=== PATIENT | male | born 1945 | race Caucasian/White ===

== ENCOUNTER 2019-09-10 02:17 | Day surgery (SDC) | payer MEDICARE, SELFPAY ==
[2019-09-09 12:37] VITALS: BMI 28.0
--- NOTE | 2019-09-09 22:58 | HP_ITS ---
DATE OF SERVICE: 09/10/2019 PREOPERATIVE DIAGNOSES: 1. Type 2 diabetes with severe peripheral vascular disease. 2. Gangrenous left 2nd toe. 3. Osteomyelitis of the left 2nd toe and distal metatarsal. 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 SURGEON: Jose Cartagena M.D. ANESTHESIA: General. INDICATIONS: This patient is 73, he has been a patient of mine for about 4 years. During that time, he has undergone lot of surgeries and wound care for diabetic foot problems. In 2016, he underwent transmetatarsal amputations of the right 2nd and 3rd toes and later in that year underwent transmetatarsal amputation of the 4th and 5th toes. Earlier in that year, he had already undergone big toe transmetatarsal amputation. He went on to heal all of those sites well. More recently, he has had a great toe amputation on the left side and had complications with healing of that. He has been involved with hyperbaric treatment. He has had evaluation by vascular surgeons and he has had an extensive workup with Dr. Dilan Sow at [facility]. An attempt had been made to revascularize the left lower extremity and there was no successful attempt at intervention at the anterior tibial both antegrade and retrograde, and the posterior tibial. It was felt that there was no way that they could revascularize the distal vessels. However, now the patient has osteomyelitis and a gangrenous toe. It is felt that the flow through the distal posterior tibial is actually retrograde flow from the dorsal arteries which seemed to preclude a toe amputation and an MRI indicates osteomyelitis into the distal metatarsal. There had been success in healing the great toe amputation site with hyperbaric treatment over long period of time. The patient has now agreed to transmetatarsal amputation. We came upon this idea because the 3rd toe is very poorly perfused. It is almost white and removal of the 2nd toe can be very problematic for survival of the next adjacent toe. He needs surgical intervention and he has agreed to transmetatarsal amputation of all remaining toes.Healing of this wound will remain problematic. We will do all we can to preserve the dorsal skin and the tibialis anterior and get him quickly started back to the wound center, where he has been followed at [place], receiving hyperbaric treatment, frequent wound debridements, careful radiographic monitoring. ALLERGIES: THE PATIENT IS NOT KNOWN TO BE ALLERGIC TO ANY MEDICATIONS. PAST MEDICAL HISTORY: According to the patient's latest intake in my office, he was on clopidogrel and aspirin in late 2019. We have asked him to remain on the Plavix for his surgery. This patient is not any longer on any chronic narcotic medications. Our other latest medication information is from mid 2018, the patient had failed to bring a list and said he would drop it off. He has had cardiac bypass in 2004. He is a nonsmoker, type 2 diabetic with some heart disease, hearing loss. At this time, I do not have an up to date record on his diabetic medications, he has been on insulin, glyburide, metformin, and Trulicity in the past. He has been on amlodipine and hydralazine in the past as well. FAMILY HISTORY: Noncontributory. SOCIAL HISTORY: Lives in [place]. He is retired. He is to [facility]. He says he has 7 daughters. PHYSICAL EXAMINATION: GENERAL: He is a pleasant gentleman, in no distress. He is frustrated and upset about his condition as he has been many times that I have seen him. HEENT: Unremarkable. CHEST: Clear to auscultation. HEART: Regular rate and rhythm by palpation. ABDOMEN: Soft, nontender. EXTREMITIES: He ambulates fairly easily. He has had all 5 toes removed and a
[2019-09-10] VITALS (10 sets, daily range): BP systolic 122–166; BP diastolic 55–76; PULSE 87–110; RESP 12–21; TEMP 36.7–36.9; O2SAT 93–100
[2019-09-10 08:46] LABS: Glucose Point of Care 104 (65-105)
[2019-09-10] MEDS: LACTATED RINGERS 1,000 ML 30 ML IV CONT ×2 (09:13→11:50)
--- NOTE | 2019-09-10 09:57 | WPDANESEPPF ---
Anes - Initial Pre Proc Eval Procedure: Operation Date: 09/10/19 09:45 Proposed Procedures p Transmetatarsal Amputation Of Four Toes Left Foot - Jose Cartagena MD Date/Time: 09/10/19 09:57 Surgeon: Jose Cartagena MD Pre Op Diagnosis: Gangrene Four Toes Left Foot Patient Data Age: 73 Gender: M Height: 6 ft Weight: 92.4 kg Last Vital Signs Temp 98.0 F 09/10/19 09:03 Pulse 110 H 09/10/19 09:03 Resp 20 09/10/19 09:03 BP 153/69 H 09/10/19 09:03 Allergies Allergy/AdvReac Type Severity Reaction Status Date / Time CRISELDA Inhibitors Allergy Unknown Cough Verified 09/10/19 09:00 Home Medications Medication Instructions Recorded Confirmed Type isosorbide mononitrate 60 mg 60 mg PO DAILY #90 tablet 07/23/19 09/09/19 Rx tablet,extended release 24 hr insulin glargine 100 unit/mL (3 35 unit SUB-Q DAILY #15 ml 08/20/19 09/09/19 Rx mL) subcutaneous pen lovastatin 40 mg tablet 40 mg PO DAILY #90 tablet 08/20/19 09/09/19 Rx clopidogrel 75 mg tablet 75 mg PO DAILY #90 tablet 08/29/19 09/09/19 Rx dulaglutide 0.75 mg/0.5 mL 0.75 mg SUB-Q WEEKLY 09/02/19 09/09/19 History subcutaneous pen injector insulin syringe-needle U-100 1 mL #100 each 09/02/19 History 29 gauge x 5/16 losartan 100 mg tablet 100 mg PO DAILY 09/02/19 09/09/19 History pen needle, diabetic 32 gauge x #10 each 09/02/19 History cilostazol 100 mg tablet 100 mg PO BID 09/03/19 09/09/19 History doxycycline hyclate 100 mg tablet 100 mg PO BID tablet 09/03/19 09/09/19 History glimepiride 4 mg tablet 4 mg PO QAM 09/03/19 09/09/19 History Laboratory Tests 09/10/19 08:43 POC Capillary Glucose 104 mg/dl mg/dl (65-105) Patient hx anesthesia problems: none Family hx anesthesia problems: none PMFSH Past Medical History Medical History (Updated 09/10/19 @ 10:00 by Uri Longo MD) Arthritis Diabetes Hyperlipidemia Hypertension Social History Social History Smoking status: Never smoker Second hand tobacco smoke exposure: No Alcohol intake: current Gender identity (if verbalized by the patient): Male Anes - Eval Final PreProcedure Day of Procedure 09/10/19 09:57 Patient weight: obese Heart: regular rate and rhythm Lungs: clear to auscultation Airway: Mallampati scale class III Neurological: alert and oriented Last oral intake: >/= 8 hours ASA classification: III Emergent: no Anesthetic plan: proceed Anesthesia type and monitoring: general LMA and standard monitoring Informed Consent: The patient's anesthetic plan and its attendant risks and benefits were discussed with the patient/family/POA. Questions were solicited and answers provided to the satisfaction of the patient/family/POA.
--- NOTE | 2019-09-10 10:00 | P.OPB_ITS ---
Procedure Note - Brief Procedure Note - Brief Date of procedure: 09/10/19 Pre-op diagnosis: Gangrene Four Toes Left Foot Post-op diagnosis: same Procedure performed: Transmetatarsal amputation of ulnar four toes of left foot Anesthesia: GLMA Surgeon: Jose Cartagena MD Self Contained Behavior Unit Teacher: Richelle Estimated blood loss (mL): 150 Drains: No Pathology: yes (2nd metarsal amputation site for pathology; culture swab.) Complications: No immediate complications Condition: stable Disposition: PACU
--- NOTE | 2019-09-10 10:05 | WPDHPUPDATE1 ---
History and Physical Update Update Date/Time: 09/10/19 10:05 History and Physical has been reviewed, including an updated exam of the patient. There are NO changes in the patient's condition. Risks, benefits, and alternatives have been discussed and questions answered. Patient agrees to proceed with procedure.
[2019-09-10] MEDS: ceFAZolin 2 GM/D5W 50 ML 2 GM/50 ML BAG IVPB (10:10)
[2019-09-10 12:13] LABS: Glucose Point of Care 101 (65-105)
--- NOTE | 2019-09-10 12:22 | P.OP_ITS ---
Procedure Note - Detailed Date of procedure: 09/10/19 Pre-op diagnosis: Gangrene Four Toes Left Foot Post-op diagnosis: other (Gangrene and osteomyelitis of the left 2nd toe. Severe ischemia of the remaining toes) Procedure performed: Transmetatarsal amputation of the 4 remaining toes of the left foot Description of procedure: The appropriate extremity was marked in preop. The patient was taken to the operating room and placed supine on the operating table. A time-out was held and confirmed. He was given general anesthesia with an LMA. The left lower extremity was prepped and draped in usual fashion. The foot was carefully examined. We began the procedure without a tourniquet. It was inflated later to 250 mmHg. The 2nd toe is taken off to remove its ulceration from the field. The area was then re-prepped with Betadine. His most recent culture had only grown Bacteroides. Amputations were begun at the 5th position. A dorsal midline incision was made over the metatarsophalangeal joint. Dissection was carried sharply through the extensor tendon and around the metatarsal phalangeal joint. We tried to leave as much subcutaneous tissue intact as possible. A circular excision was taken around the toe at approximately the interphalangeal joint level the sagittal saw was introduced to take off the distal head of the 5th metatarsal. This was tapered distally the flexor tendon was divided and the toe removed electr ocautery was required on . Gelfoam was then placed into the socket. Attention was turned to the 4th toe. A 2nd dorsal midline incision was made. Again the extensor tendon was divided the soft tissue was divided as close to bone as possible the sagittal saw was introduced again to take off the distal metatarsal head on the 4th. The flexor tendon was divided and the toe removed after placing a circular incision around the area of the proximal phalanx. This method left a lot of soft tissue for closure and for vascular supply. The same procedure was carried out at 3rd toe. The 2nd toe was taken out through the same incision as the 3rd. Hemostasis was assured with a cautery. The wounds were irrigated copiously with bacitracin solution. The Gelfoam was removed. The tourniquet was released at this point. It seemed entirely feasible to close these wounds with running 4-0 nylon suture without any tension. Following a bulky bandage was applied and he was discharged from the operating room in stable condition. He received 2 g of Ancef preop. Estimated blood loss of 150 milliliter. He is being discharged with instructions in wound care follow-up. He has a prescription for hydrocodone 12/13/2024 14. Surgeon: Jose Cartagena MD
== END 2019-09-10 14:40 | disposition home or self-care (01) ==
PROVIDERS: PCP Physician Assistant; Visit Provider Plastic Surgery
PROC: (CPT 28810; principal; 2019-09-10 09:45)
DX: E11.52 Type 2 diabetes mellitus with diabetic peripheral angiopathy with gangrene (principal); I96 Gangrene, not elsewhere classified; E11.69 Type 2 diabetes mellitus with other specified complication; M86.8X7 Other osteomyelitis, ankle and foot; I10 Essential (primary) hypertension; E78.5 Hyperlipidemia, unspecified; M19.90 Unspecified osteoarthritis, unspecified site; Z79.02 Long term (current) use of antithrombotics/antiplatelets; Z79.4 Long term (current) use of insulin; E66.9 Obesity, unspecified; Z68.27 Body mass index [BMI] 27.0-27.9, adult
CPT/HCPCS: 28810 ×4; 87070; 87075; 87205; 88300; 88305; 88311; A9270; J0690; J1100; J2370; J2405; J2704; J3010; J7120

== ENCOUNTER 2019-09-17 14:26 | Outpatient (CLI) | payer MEDICARE, SELFPAY ==
--- NOTE | ~2019-09-17 | XR_ITS ---
EXAMINATION: XR foot LT min 3V DATE: 09/17/2019 14:58 INDICATION: Recent transmetatarsal indication multiple toes in the left foot performed 1 week prior. TECHNIQUE: Dorsoplantar, two oblique and lateral views of the left foot were obtained. COMPARISON: None. FINDINGS: Changes relatively recent-appearing transmetatarsal amputations across portions of the heads of the f irst-fifth metatarsals. The osteotomy margins appear linear and relatively sharply defined on the lat eral projection, still without corticated margins consistent with relatively recent procedure. No fra ctures identified. Mild polyarticular osteoarthritis at the naviculocuneiform and multiple tarsal met atarsal joints. Small plantar calcaneal spur. No evident subcutaneous gas. Scattered vascular calcifi cations. No ankle joint effusion. IMPRESSION: 1. Expected appearance post transmetatarsal amputations across the heads of the first-fifth metatarsa ls. Reviewed, dictated and finalized at location A. ER IMPRESSION: 1. Expected appearance post transmetatarsal amputations across the heads of the first-fifth metatarsals.
== END 2019-09-17 14:27 | disposition home or self-care (01) ==
LOC: ANHIMG 14:29
PROVIDERS: PCP Physician Assistant; Visit Provider Plastic Surgery
DX: Z09 Encounter for follow-up examination after completed treatment for conditions other than malignant neoplasm (principal); Z89.422 Acquired absence of other left toe(s)
CPT/HCPCS: 73630

== ENCOUNTER 2020-03-08 16:54 | Inpatient (IN) | payer MEDICARE, SELFPAY ==
--- NOTE | ~2020-03-08 | MR_ITS ---
EXAMINATION: MR foot LT wo con DATE: 03/10/2020 17:03 INDICATION: Left foot diabetic ulcer. Osteomyelitis. TECHNIQUE: Magnetic resonance imaging (MRI) of the left foot was performed without intravenous contra st. Sequences included sagittal T1-weighted FSE and STIR FSE, long-axis PD-weighted FS FSE and PD-becca ghted FSE, and short-axis PD-weighted FS FSE and T1-weighted FSE. COMPARISON: Left foot MRI 12/28/2018, radiographs 03/08/2020, 09/17/2019 FINDINGS: There is amputation of the left forefoot at the heads of the metatarsals. Bone alignment is normal. No acute fracture. There are erosions of the heads of the first and third metatarsals with b one marrow edema. There are erosions of the residual neck of fifth metatarsal with bone marrow edema involving the neck and diaphysis. These findings are consistent with osteomyelitis. There is mild le yarticular osteoarthritis of the midfoot. Lisfranc ligament is intact. There is widespread severe fat ty atrophy and increased T2-weighted signal intensity in the musculature, consistent with subacute on chronic denervation and some areas of myositis. IMPRESSION: 1. Osteomyelitis involving the first, third, and fifth metatarsals. Reviewed, dictated and finalized at location A.
--- NOTE | ~2020-03-08 | XR_ITS ---
XR foot LT 2V 03/08/2020 18:46 Indication: Osteomyelitis. Wound on lateral aspect of fifth metatarsal Procedure: 2 views left foot Comparison: 09/17/2019 Findings: There are surgical changes consistent with transmetatarsal amputations of the first-fifth m etatarsal heads. Small amount of soft tissue gas adjacent to the fourth and fifth metatarsals. No hetal dence for osteomyelitis. There is extensive arterial calcification of the foot. Impression: 1: No evidence for osteomyelitis. Soft tissue gas adjacent to the fourth and fifth metatarsals, possi liz cellulitis. If there is continued concern for osteomyelitis, correlation with MRI is recommended. Reviewed, dictated and finalized at location A. Impression: 1: No evidence for osteomyelitis. Soft tissue gas adjacent to the fourth and fi fth metatarsals, possibly cellulitis. If there is continued concern for osteomy elitis, correlation with MRI is recommended.
--- NOTE | ~2020-03-08 | US_ITS ---
EXAMINATION: US art doppler w press LE BI EXAM DATE: 03/09/2020 14:00 INDICATION: Peripheral vascular disease, foot ulcer, diabetes. TECHNIQUE: Segmental pressures and plethysmographic and Doppler waveforms of the brachial and lower e xtremity arteries were obtained. There is no prior study for comparison. FINDINGS: Right and left brachial artery pressures of 158 mm Hg and 164 mm Hg, respectively, are concordant (no rmal difference <= 30 mmHg). Could not obtain posterior tibial or dorsalis pedis pressures bilaterall y. There are monophasic arterial waveforms bilaterally. IMPRESSION: Couldn't obtain lower extremity pressures. Monophasic waveforms. Reviewed, dictated and finalized at location A.
[2020-03-08 17:18] VITALS: BP 176/73; PULSE 104; RESP 20; TEMP 36.7; O2SAT 98
[2020-03-08 18:19] VITALS: BP 152/72; PULSE 94; RESP 16; TEMP 37.2; O2SAT 94
[2020-03-08 18:28] VITALS: BP 152/72; PULSE 95; RESP 18; O2SAT 95
--- NOTE | 2020-03-08 18:29 | ED.WOUNDLAC ---
HPI - Wound/Laceration General Chief Complaint: Wound/Laceration <Mary Lopez MD - Last Filed: 03/08/20 19:03> Stated Complaint: foot wound <Mary Lopez MD - Last Filed: 03/08/20 19:03> Time Seen by Provider: 03/08/20 18:09 <Mary Lopez MD - Last Filed: 03/08/20 19:03> History of Present Illness HPI narrative: Patient sent in by his primary care to be admitted for Dr. Cartagena to further evaluate the foot ulcer with exposed bone. Patient said the pain is only a 2-3 out of 10. He does not need any pain medicine now. He has been getting wound management, but the ulcer has proceeded to expose bone. The patient denies any fever, chills, or sweats, <Mary Lopez MD - Last Filed: 03/08/20 19:03> Onset (ago): week(s) <Mary Lopez MD - Last Filed: 03/08/20 19:03> Extremity Location: Left: foot <Mary Lopez MD - Last Filed: 03/08/20 19:03> Context: other (Diabetic foot) <Mary Lopez MD - Last Filed: 03/08/20 19:03> Associated symptoms: pain <Mary Lopez MD - Last Filed: 03/08/20 19:03> Treatments prior to arrival: bandage <Mary Lopez MD - Last Filed: 03/08/20 19:03> Related Data Home Medications: Home Medications Medication Instructions Recorded Confirmed insulin syringe-needle U-100 1 mL #100 each 09/02/19 03/08/20 29 gauge x 5/16 cilostazol 100 mg tablet 100 mg PO BID 09/03/19 03/08/20 doxycycline hyclate 100 mg tablet 100 mg PO BID tablet 09/03/19 03/08/20 glimepiride 4 mg tablet 4 mg PO QAM 09/03/19 03/08/20 dulaglutide 0.75 mg/0.5 mL 1.5 mg SUB-Q WEEKLY ml 01/08/20 03/08/20 subcutaneous pen injector <Mayr Lopez MD - Last Filed: 03/08/20 19:03> Allergies/Adverse Reactions: Allergies Allergy/AdvReac Type Severity Reaction Status Date / Time CRISELDA Inhibitors Allergy Unknown Cough Verified 03/08/20 18:29 <Mary Lopez MD - Last Filed: 03/08/20 19:03> Review of Systems Review of Systems: Narrative: CONSTITUTIONAL: Denies fever, chills, or sweats. EYES: Denies visual changes, redness, or discharge. ENT: Denies rhinorrhea, congestion, sore throat, or otalgia. CARDIOVASCULAR: Denies chest pain, palpitations, or edema. RESPIRATORY: Denies cough or dyspnea. GASTROINTESTINAL: Denies abdominal pain, nausea, vomiting, or diarrhea. GENITOURINARY: Denies dysuria or hematuria. SKIN: Denies rash or itching. MUSCULOSKELETAL: Denies back pain, but he has pain in his lateral left foot. NEUROLOGIC: Denies headache, numbness, or weakness. <Mary Lopez MD - Last Filed: 03/08/20 19:03> PMFSH Past Medical History Medical History: Medical History (Updated 03/08/20 @ 18:32 by Mary Lopez MD) Amputation of toe of left foot Arthritis Diabetes History of amputation of toe Hyperlipidemia Hypertension <Mary Lopez MD - Last Filed: 03/08/20 19:03> Social History Social History: Social History Smoking status: Never smoker Second hand tobacco smoke exposure: No Alcohol intake: current Substance use: never Gender identity (if verbalized by the patient): Male Sexual Orientation (if Verbalized by the Patient): Straight or Heterosexual <Mary Lopez MD - Last Filed: 03/08/20 19:03> Exam Narrative: Exam Narrative: GENERAL: Well-appearing, well-nourished, and in no acute distress. HEAD: Normocephalic, atraumatic. EYES: PERRLA and EOMI. ENT: Nares clear, no rhinorrhea or epistaxis. Mucous membranes moist. NECK: Supple. CHEST: Clear to auscultation. No respiratory distress. HEART: Regular rate and rhythm. No murmur heard. Normal peripheral pulses. ABDOMEN: Soft, nontender, nondistended, normal active bowel sounds. EXTREMITIES: Left foot is missing toes, and has exposed bone on the fifth metatarsal.. SKIN: Warm, dry, no rash. NEURO: No focal deficits. Alert and oriented x3. PSYCH: Normal mood and affect. <Mary Lopez MD - Last Filed: 03/08/
[2020-03-08] MEDS: SODIUM CHLORIDE 0.9% IV 1,000 ML 150 ML IV CONT (18:52)
[2020-03-08 19:02] LABS: Basophils Absolute Auto 0.1 K/mm3 (0.0-0.1); Basophils Percent Auto 0.5 % (0.2-1.2); Eosinophils Absolute Auto 0.1 K/mm3 (0-0.3); Eosinophils Percent Auto 0.7 % (0-4.4); Hematocrit 40.4 % (42.0-52.0); Hemoglobin 13.7 g/dL (14.0-18.0); Immature Granulocyte Absolute 0.04 K/mm3 (0.00-0.031); Immature Granulocyte Percent A 0.4 % (0-0.5); Lymphocytes Absolute Auto 1.54 K/mm3 (0.9-3.2); Lymphocytes Percent Auto 16.5 % (18.3-44.2); Mean Corpuscular HGB Conc 33.9 g/dl (32-36); Mean Corpuscular Hemoglobin 29.5 pg (26-34); Mean Corpuscular Volume 87.1 fl (80-100); Mean Platelet Volume 10.4 fl (7.4-10.4); Monocytes Percent Auto 10.3 % (2.6-8.5); Neutrophils Absolute Auto 6.7 K/mm3 (1.3-6.7); Neutrophils Percent Auto 71.6 % (45.5-73.1); Platelet Count Result 345 k/mm3 (150-375); Red Blood Count 4.64 M/mm3 (4.6-6.20); Red Cell Distribution Width 13.6 % (11.5-14.5); White Blood Count 9.4 K/mm3 (4.5-10.0)
[2020-03-08 19:08] LABS: INR 1.1; Prothrombin Time 13.8 Seconds (11.1-14.7)
[2020-03-08 19:10] LABS: Lactic Acid 1.4 mmol/L (0.7-2.1)
[2020-03-08 19:11] LABS: Alanine Aminotransferase 20 U/L (4-50); Albumin Level 4.2 g/dL (3.5-5.1); Alkaline Phosphatase 92 U/L (38-126); Anion Gap 13.4 mmol/L (7-16); Aspartate Amino Transferase 24 U/L (17-59); Bilirubin,Total 0.4 mg/dL (0.2-1.3); Blood Urea Nitrogen 30 mg/dL (9-20); Calcium 9.2 mg/dL (8.4-10.2); Carbon Dioxide 29 mmol/L (22-30); Chloride 95 mmol/L (98-107); Estimated CRCL calculation 43 ml/min; Estimated Glomerular Filt Rate 46; Glucose 373 mg/dL (75-110); Potassium 3.4 mmol/L (3.4-5.0); Sodium 134 mmol/L (137-145)
[2020-03-08 21:21] VITALS: BP 142/94; PULSE 86; RESP 20; O2SAT 96
--- NOTE | 2020-03-08 21:38 | PC.NURSE ---
This patient, Chris Handley, was admitted to 2 Medical Room 257-01. Patient/family oriented to hospital policies and general routines including ID bracelet, bed and alarms, visiting hours, pain management, procedures, bathroom and other care routines, personal items, smoking policy, room service/diet, and visiting hours. Valuables list has been completed. Information on how to activate the Rapid Response Team has been discussed. Patient/Family are encouraged to report perceived risks to care and to ask questions if they do not understand what they are told or what they should do.
[2020-03-08] MEDS: SODIUM CHLORIDE 0.9% IV 1,000 ML 125 ML IV CONT (21:45)
[2020-03-08 22:00] VITALS: BP 170/75; PULSE 97; RESP 20; TEMP 36.6; O2SAT 99
[2020-03-08 23:02] LABS: Glucose Point of Care 317 (65-105)
[2020-03-09] VITALS: BP 138/65; PULSE 88; RESP 20; TEMP 36.5; O2SAT 97
[2020-03-09] MEDS: INSULIN GLARGINE (*BKC) 100 UNITS/ML 40 UNITS SUB-Q ×2 (00:31→21:01)
[2020-03-09] MEDS: SODIUM CHLORIDE 0.9% IV 1,000 ML 125 ML IV CONT ×2 (03:03→17:00)
[2020-03-09 05:59] VITALS: BP 152/73; PULSE 81; RESP 18; TEMP 36.6; O2SAT 98
[2020-03-09 07:44] LABS: Glucose Point of Care 123 (65-105)
[2020-03-09 08:15] LABS: Blood Urea Nitrogen 20 mg/dL (9-20); Calcium 8.3 mg/dL (8.4-10.2); Carbon Dioxide 27 mmol/L (22-30); Chloride 103 mmol/L (98-107); Estimated CRCL calculation 57 ml/min; Estimated Glomerular Filt Rate 54; Glucose 121 mg/dL (75-110); Sodium 136 mmol/L (137-145)
[2020-03-09 08:32] LABS: Hemoglobin A1C 9.5 % (<5.7)
[2020-03-09 08:33] LABS: CRP 6.4 mg/dL (<1.0)
[2020-03-09 11:26] LABS: Glucose Point of Care 191 (65-105)
--- NOTE | 2020-03-09 11:38 | PM.IMHP ---
H&P: HPI History of Present Illness Chief complaint: foot ulcer and osteomylitis Narrative: Chris Handley is a 74 year old male with past medical history of uncontrolled diabetes his recent hemoglobin A1c is 9.5, patient had been seen by wound clinic for diabetic foot and had been treated however patient was seen by his surgeon 03/08 and his wound was getting worse to the point where the bone is exposed and patient was asked to come to emergency department for further evaluation, patient denies any pain, denies any fever or chills, patient states that he has had history of diabetic foot ulcers and seen by wound clinic as well as Dr. Zamora. patient will be seen by surgeon and further recommendation to follow, started on vancomycin. will have wound nurse collect simple for wound culture. patient CRP is elevated will get MRI of the foot to rule out osteomyelitis Review of Systems Review of Systems: All systems reviewed & are unremarkable except as noted in HPI and below PMFSH Past Medical History Medical History (Updated 03/09/20 @ 11:57 by Neda Michelle MD) Amputation of toe of left foot Arthritis Diabetes History of amputation of toe Hyperlipidemia Hypertension Family History Family History (Updated 03/08/20 @ 22:03 by Katya Martines RN) Mother Family history of lung cancer Patient's mother is Father Family history of throat cancer Sibling Heart disease Social History Social History Smoking status: Never smoker Second hand tobacco smoke exposure: No Alcohol intake: never Substance use: never Substance use type: does not use Gender identity (if verbalized by the patient): Male Sexual Orientation (if Verbalized by the Patient): Straight or Heterosexual Spiritual care concerns: No Meds Home Medications and Allergies Home Medications Medication Instructions Recorded Confirmed Type clopidogrel 75 mg tablet 75 mg PO DAILY #90 tablet 08/29/19 03/08/20 Rx insulin syringe-needle U-100 1 mL #100 each 09/02/19 03/08/20 History 29 gauge x 12/26 cilostazol 100 mg tablet 100 mg PO BID 09/03/19 03/08/20 History doxycycline hyclate 100 mg tablet 100 mg PO BID tablet 09/03/19 03/08/20 History glimepiride 4 mg tablet 4 mg PO BID 09/03/19 03/08/20 History pen needle, diabetic 32 gauge x #100 each 11/12/19 03/08/20 Rx hydrochlorothiazide 25 mg tablet 25 mg PO DAILY #90 tablet 12/22/19 03/08/20 Rx dulaglutide 0.75 mg/0.5 mL 1.5 mg SUB-Q WEEKLY ml 01/08/20 03/08/20 History subcutaneous pen injector Lantus Solostar U-100 Insulin 40 unit SUBCUT HS 03/08/20 03/08/20 History isosorbide mononitrate 60 mg PO DAILY 03/08/20 03/08/20 History lovastatin 40 mg PO HS 03/08/20 03/08/20 History Allergies Allergy/AdvReac Type Severity Reaction Status Date / Time CRISELDA Inhibitors Allergy Unknown Cough Verified 03/08/20 18:29 Vital Signs Vital Signs - 24 hr 03/08/20 17:18 03/08/20 18:19 03/08/20 18:28 Temperature 98.1 F 98.9 F Pulse Rate 104 H 94 95 Respiratory Rate 20 16 18 Blood Pressure 176/73 H 152/72 H 152/72 H Pulse Oximetry 98 94 95 03/08/20 21:21 03/08/20 22:00 03/09/20 00:00 Temperature 97.8 F 97.7 F Pulse Rate 86 97 88 Respiratory Rate 20 20 20 Blood Pressure 142/94 H 170/75 H 138/65 Pulse Oximetry 96 99 97 03/09/20 05:59 Temperature 97.8 F Pulse Rate 81 Respiratory Rate 18 Blood Pressure 152/73 H Pulse Oximetry 98 Exam Const: General: comfortable and no acute distress HENMT: General nose exam: Normal nares present Mouth: Yes moist mucous membranes Eyes: General: appearance normal, both eyes and all related structures Sclera: sclerae normal Neck: Neck: supple Resp: Effort & Inspection: normal respiratory effort Auscultation: clear to auscultation bilaterally Cardio: Rate: regular rate Rhythm: regular rhythm GI: GI Palp: Yes Soft to palpation Auscultation: nor
--- NOTE | 2020-03-09 12:08 | WPDCN ---
Assessment and Plan Additional Plan Poorly controlled diabetic. New lateral left foot ulcer with exposed bone. Plan: Culture wound. MRI of foot. Arterial doppler. NS dressings. Probably to OR on to remove involved bone, after reviewing MRI. 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 Has been followed by Dr Mervin Peña at [facility] in [place] for HBO and went on to heal his foot wound. Had intermediate IV antibiotic treatment per Dr Miranda. I have not seen him since . Has new wound to the left 5th metatarsal stump site with erythema, exposed bone and purulent drainage. Site probes to 2.0 cm. His Hb a1c has been as high as 10 in recent weeks. He is and active and was hoping to be in [facility] this week to see a new grand daughter. X-ray here show no sign of osteomyelitis, but bone abuts skin margin. Pulses not palpable, but skin looks generally good without other ulcers. [facility] Past Medical History Medical History (Updated 03/09/20 @ 11:57 by Neda Michelle MD) Amputation of toe of left foot Arthritis Diabetes History of amputation of toe Hyperlipidemia Hypertension Family History Family History (Updated 03/08/20 @ 22:03 by Katya Martines RN) Mother Family history of lung cancer Patient's mother is Father Family history of throat cancer Sibling Heart disease Social History Social History Smoking status: Never smoker Second hand tobacco smoke exposure: No Alcohol intake: never Substance use: never Substance use type: does not use Gender identity (if verbalized by the patient): Male Sexual Orientation (if Verbalized by the Patient): Straight or Heterosexual Spiritual care concerns: No Meds Home Medications and Allergies Home Medications Medication Instructions Recorded Confirmed Type clopidogrel 75 mg tablet 75 mg PO DAILY #90 tablet 08/29/19 03/08/20 Rx insulin syringe-needle U-100 1 mL #100 each 09/02/19 03/08/20 History 29 gauge x 5/16 cilostazol 100 mg tablet 100 mg PO BID 09/03/19 03/08/20 History doxycycline hyclate 100 mg tablet 100 mg PO BID tablet 09/03/19 03/08/20 History glimepiride 4 mg tablet 4 mg PO BID 09/03/19 03/08/20 History pen needle, diabetic 32 gauge x #100 each 11/12/19 03/08/20 Rx hydrochlorothiazide 25 mg tablet 25 mg PO DAILY #90 tablet 12/22/19 03/08/20 Rx dulaglutide 0.75 mg/0.5 mL 1.5 mg SUB-Q WEEKLY ml 01/08/20 03/08/20 History subcutaneous pen injector Lantus Solostar U-100 Insulin 40 unit SUBCUT HS 03/08/20 03/08/20 History isosorbide mononitrate 60 mg PO DAILY 03/08/20 03/08/20 History lovastatin 40 mg PO HS 03/08/20 03/08/20 History Allergies Allergy/AdvReac Type Severity Reaction Status Date / Time CRISELDA Inhibitors Allergy Unknown Cough Verified 03/08/20 18:29 Vital Signs Vital Signs - 24 hr 03/08/20 17:18 03/08/20 18:19 03/08/20 18:28 Temperature 36.7 C 37.2 C Pulse Rate 104 H 94 95 Respiratory Rate 20 16 18 Blood Pressure 176/73 H 152/72 H 152/72 H Pulse Oximetry 98 94 95 03/08/20 21:21 03/08/20 22:00 03/09/20 00:00 Temperature 36.6 C 36.5 C Pulse Rate 86 97 88 Respiratory Rate 20 20 20 Blood Pressure 142/94 H 170/75 H 138/65 Pulse Oximetry 96 99 97 03/09/20 05:59 Temperature 36.6 C Pulse Rate 81 Respiratory Rate 18 Blood Pressure 152/73 H Pulse Oximetry 98 Results Labs CBC & Chem 7: 03/08/20 18:50 03/09/20 07:44 Labs: Short CBC 03/08/20 Range/Units 18:50 WBC 9.4 (4.5-10.0) K/mm3 Hgb 13.7 L (14.0-18.0) g/dL Hct 40.4 L (42.0-52.0) % Plt Count 345 (150-375)
[2020-03-09 13:25] VITALS: BP 135/55; PULSE 82; RESP 18; TEMP 36.3; O2SAT 96
[2020-03-09 16:22] LABS: Glucose Point of Care 234 (65-105)
[2020-03-09] MEDS: INSULIN ASPART (*BKC) 100 UNITS/ML SUB-Q (17:03)
[2020-03-09] MEDS: ACETAMINOPHEN 325 MG TABLET 650 MG PO (19:50)
[2020-03-09 21:57] LABS: Glucose Point of Care 271 (65-105)
[2020-03-09 22:00] VITALS: BP 160/63; PULSE 77; RESP 20; TEMP 36.7; O2SAT 95
[2020-03-10] MEDS: SODIUM CHLORIDE 0.9% IV 1,000 ML 125 ML IV CONT ×3 (03:54→23:25)
[2020-03-10 05:25] LABS: Hematocrit 36.5 % (42.0-52.0); Hemoglobin 12.2 g/dL (14.0-18.0); Mean Corpuscular HGB Conc 33.4 g/dl (32-36); Mean Corpuscular Hemoglobin 29.5 pg (26-34); Mean Corpuscular Volume 88.4 fl (80-100); Mean Platelet Volume 9.8 fl (7.4-10.4); Platelet Count Result 307 k/mm3 (150-375); Red Blood Count 4.13 M/mm3 (4.6-6.20); Red Cell Distribution Width 13.3 % (11.5-14.5); White Blood Count 6.8 K/mm3 (4.5-10.0)
[2020-03-10 05:40] LABS: Anion Gap 8.4 mmol/L (7-16); Blood Urea Nitrogen 16 mg/dL (9-20); Calcium 8.2 mg/dL (8.4-10.2); Carbon Dioxide 26 mmol/L (22-30); Chloride 108 mmol/L (98-107); Estimated CRCL calculation 61 ml/min; Estimated Glomerular Filt Rate 59; Glucose 91 mg/dL (75-110); Potassium 3.4 mmol/L (3.4-5.0); Sodium 139 mmol/L (137-145)
[2020-03-10 06:00] VITALS: BP 149/61; PULSE 72; RESP 18; TEMP 36.3; O2SAT 100
[2020-03-10 08:00] VITALS: BP 147/55; PULSE 67; RESP 20; TEMP 35.9; O2SAT 98
[2020-03-10] MEDS: POTASSIUM CHLORIDE 20 MEQ PACKET (FOR LIQUID) 40 MEQ PO (08:06)
[2020-03-10 08:20] LABS: Glucose Point of Care 82 (65-105)
[2020-03-10 11:39] LABS: Glucose Point of Care 166 (65-105)
--- NOTE | 2020-03-10 12:17 | PM.IMPN ---
Progress Note: A&P Assessment and Plan (1) Chronic foot ulcer: Qualifiers: Laterality: left Non-pressure ulcer stage: with necrosis of bone Qualified Code(s): L97.524 - Non-pressure chronic ulcer of other part of left foot with necrosis of bone Code(s): L97.509 - Non-pressure chronic ulcer of other part of unspecified foot with unspecified severity Status: Acute Assessment and Plan: 03/10/20 12:17 Chris Handley is a 74 year old male with past medical history of uncontrolled diabetes his recent hemoglobin A1c is 9.5, patient had been seen by wound clinic for diabetic foot and had been treated however patient was seen by his surgeon 03/08 and his wound was getting worse to the point where the bone is exposed and patient was asked to come to emergency department for further evaluation, patient denies any pain, denies any fever or chills, patient states that he has had history of diabetic foot ulcers and seen by wound clinic as well as Dr. Zamora. patient will be seen by surgeon and further recommendation to follow, started on vancomycin. will have wound nurse collect simple for wound culture. patient CRP is elevated,on 03/09 patient was seen the surgeon and suggested recently patient had MRI at outside facility and it did show patient has a early sign osteomyelitis, to further evaluate will get MRI of the foot, patient will be taken by the surgeon to OR tomorrow, today patient states feeling better denies any pain fever or chills. 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 Code(s): E11.9 - Type 2 diabetes mellitus without complications Status: Acute Assessment and Plan: patient recent hemoglobin A1c is 9.5 will continue current regimen and have deputy prosecuting attorney consult the patient Subjective Date/time seen: 03/10/20 12:17 Chris Handley is a 74 year old male with past medical history of uncontrolled diabetes his recent hemoglobin A1c is 9.5, patient had been seen by wound clinic for diabetic foot and had been treated however patient was seen by his surgeon 03/08 and his wound was getting worse to the point where the bone is exposed and patient was asked to come to emergency department for further evaluation, patient denies any pain, denies any fever or chills, patient states that he has had history of diabetic foot ulcers and seen by wound clinic as well as Dr. Zamora. patient will be seen by surgeon and further recommendation to follow, started on vancomycin. will have wound nurse collect simple for wound culture. patient CRP is elevated,on 03/09 patient was seen the surgeon and suggested recently patient had MRI at outside facility and it did show patient has a early sign osteomyelitis, to further evaluate will get MRI of the foot, patient will be taken by the surgeon to OR tomorrow, today patient states feeling better denies any pain fever or chills. Review of Systems Review of Systems: All systems reviewed & are unremarkable except as noted in HPI and below Exam Const: General: comfortable and no acute distress HENMT: General nose exam: Normal nares present Mouth: Yes moist mucous membranes Eyes: General: appearance normal, both eyes and all related structures Sclera: sclerae normal Neck: Neck: supple Resp: Effort & Inspection: normal respiratory effort Auscultation: clear to auscultation bilaterally Cardio: Rate: regular rate Rhythm: regular rhythm GI: Auscultation: normal bowel sounds Skin: General skin exam: normal color Neuro: Speech: normal speech Sensory Exam: normal sensation Extrem: Other: left foot in wound dressing Psych: Affect: Anxious affect present Objective Vinayak
[2020-03-10 14:00] VITALS: BP 180/61; PULSE 78; RESP 20; TEMP 36.2; O2SAT 95
--- NOTE | 2020-03-10 15:45 | WPDINFPN2 ---
Progress Note: A&P Assessment and Plan (1) Diabetic foot infection: Onset Date: 03/03/20 Code(s): E11.628 - Type 2 diabetes mellitus with other skin complications; L08.9 - Local infection of the skin and subcutaneous tissue, unspecified Status: Acute Assessment and Plan: 1. Left DFI, plain films no OM 2. DM 3. Left TMA August REC Vanc #3, continue. Await MRI. Subjective Date/time seen: 03/10/20 15:45 Objective Data Vital Signs Vital Signs: Vital Signs - 24 hr 03/09/20 22:00 03/10/20 06:00 03/10/20 08:00 Temperature 36.7 C 36.3 C L 35.9 C L Pulse Rate 77 72 67 Respiratory Rate 20 18 20 Blood Pressure 160/63 H 149/61 H 147/55 H Pulse Oximetry 95 100 98 03/10/20 14:00 Temperature 36.2 C L Pulse Rate 78 Respiratory Rate 20 Blood Pressure 180/61 H Pulse Oximetry 95 Intake/Output Intake/Output: Intake & Output 03/07/20 03/08/20 03/09/20 03/10/20 23:59 23:59 23:59 23:59 Intake Total 300 4339 3050 Output Total 600 300 Balance 300 3739 2750 Meds/Results Medications: Active Medications Generic Name Dose Route Start Last Admin Trade Name Freq PRN Reason Stop Dose Admin Acetaminophen 650 mg 03/08/20 19:04 03/09/20 19:50 Tylenol Tablet PO 650 mg Q4H PRN Administration Mild Pain (1-3) or Fever Dextrose 12.5 gm 03/09/20 00:18 Dextrose 50% Syringe IV PUSH PRN PRN Hypoglycemia Protocol Glucagon 1 mg 03/09/20 00:18 Glucagon For Inj IM PRN PRN Hypoglycemia Protocol Glucose 15 gm 03/09/20 00:18 Glutose 15 PO PRN PRN Hypoglycemia Protocol Sodium Chloride 1,000 mls @ 125 mls/hr 03/08/20 19:05 03/10/20 11:51 Normal Saline Iv IV CONT 125 mls/hr .Q8H KAYLI Administration Vancomycin HCl 1,500 mg in 500 mls @ 333.333 mls/hr 03/09/20 15:00 03/10/20 15:01 Vancomycin 1,500 Mg/D5w 500 Ml IVPB 333 mls/hr Q24H KAYLI Administration Dextrose 1,000 mls @ 100 mls/hr 03/09/20 00:18 Dextrose 5% 1,000 Ml IVPB PRN PRN Hypoglycemia Protocol Insulin Aspart 3 - 6 units 03/09/20 08:00 03/10/20 11:38 Novolog SUB-Q Not Given TIDWM KAYLI Protocol Insulin Glargine 40 units 03/09/20 00:20 03/09/20 21:01 Lantus SUB-Q 40 units HS KAYLI Administration Ondansetron HCl 4 mg 03/08/20 19:04 Zofran Inj IV PUSH Q4H PRN Nausea Radiology Results: ITS Impressions Foot X-Ray 03/08/20 18:51 Impression: 1: No evidence for osteomyelitis. Soft tissue gas adjacent to the fourth and fifth metatarsals, possibly cellulitis. If there is continued concern for osteomyelitis, correlation with MRI is recommended. Doppler Study Ultrasound 03/09/20 14:07 IMPRESSION: Couldn't obtain lower extremity pressures. Monophasic waveforms. Labs Labs: Laboratory Results - last 24 hr 03/09/20 03/09/20 03/10/20 16:20 20:57 05:16 WBC 6.8 RBC 4.13 L Hgb 12.2 L Hct 36.5 L MCV 88.4 MCH 29.5 MCHC 33.4 RDW 13.3 Plt Count 307 MPV 9.8 Sodium Potassium Chloride Carbon Dioxide Anion Gap BUN Creatinine Estim Creat Clear Calc Estimated GFR Glucose POC Capillary Glucose 234 H 271 H Calcium 03/10/20 03/10/20 03/10/20 05:16 07:45 11:34 WBC RBC Hgb Hct MCV MCH MCHC RDW Plt Count MPV Sodium 139 Potassium 3.4 Chloride 108 H Carbon Dioxide 26 Anion Gap 8.4 BUN 16 Creatinine 1.20 Estim Creat Clear Calc 61 Estimated GFR 59 Glucose 91 POC Capillary Glucose 82 166 H Calcium 8.2 L
[2020-03-10 16:00] VITALS: BP 176/64; PULSE 78; RESP 20; TEMP 36.2; O2SAT 96
[2020-03-10 17:00] LABS: Glucose Point of Care 242 (65-105)
[2020-03-10] MEDS: INSULIN ASPART (*BKC) 100 UNITS/ML SUB-Q (17:31)
[2020-03-10 20:00] VITALS: BP 167/60; PULSE 70; RESP 20; TEMP 36.5; O2SAT 97
[2020-03-10 20:54] LABS: Glucose Point of Care 254 (65-105)
[2020-03-10] MEDS: INSULIN GLARGINE (*BKC) 100 UNITS/ML 20 UNITS SUB-Q (22:27)
--- NOTE | 2020-03-10 22:45 | CONS_ITS ---
DATE OF CONSULTATION: 03/10/2020 REASON FOR CONSULTATION: Diabetic foot infection. HISTORY OF PRESENT ILLNESS: The patient is a 74-year-old male known to me from the office. He has longstanding diabetes mellitus that is not optimally controlled. I saw him in August when he had osteomyelitis and toe amputation was planned. He had a TMA performed at the end of August by Dr. Cartagena and had subsequent hyperbaric oxygen treatments completed in December. At that point, he was released from Dr. Valdez's care and was doing well until 5 days before admission. At that time while in the shower, he noted an area of redness over the lateral aspect of the left foot. He called Dr. Valdez's office as previously instructed for such a symptom and was set up in the office for March 10. In the interim, he had more redness and 1 day before admission, an area of skin opened up with some bleeding and discharge. When he saw Dr. Valdez, he was directed to the emergency room, was admitted here. He has been on vancomycin and consultation requested today. The patient has pain when manipulated, but no pain at rest. He has a good sensation in general. He notes of no trauma. He is out of the house very little and when he does so, he is either in slippers or else in open toed walking boot. No fever, chills, sweats, redness moving up the legs or pain up the leg. He has had no other recent operative interventions. At home, he was started on doxycycline by Dr. Valdez. ALLERGIES: CRISELDA INHIBITORS. HABITS: No tobacco. No alcohol. No illicit drugs. PRESENT MEDICATIONS: List reviewed. No immunosuppressants. PAST MEDICAL HISTORY: In addition to the above, arthritis, hyperlipidemia, and hypertension. FAMILY HISTORY: Heart disease and cancer. SOCIAL HISTORY: He is retired. Lives locally. REVIEW OF SYSTEMS: Hyperglycemia. A 14-point review otherwise negative. PHYSICAL EXAMINATION: GENERAL: This is an elderly male who appears younger than his actual age. No acute distress. VITAL SIGNS: Since arrival afebrile, 180/61, 78, 20, 95% on room air. SKIN: No rashes. Warm and dry. EENT: The conjunctivae are clear. The oropharynx, oral mucosa normal. NECK: No masses, thyromegaly, or meningismus. LUNGS: Clear to auscultation and percussion. CARDIAC: Regular rate and rhythm. No murmurs or gallops. Unable to palpate dorsalis pedis pulse. ABDOMEN: Nontender, soft. No organomegaly. No masses. EXTREMITIES: He has no lymphangitis. No cellulitis in the left leg over the foot. He has 1+ nonpitting edema, also some mild erythema. No tenderness and no warmth. He has a 1 cm ulcer over the lateral aspect of the foot just proximal to the incision line and on the dorsum of the foot 1 cm medially. He has a sinus tract. RADIOLOGICAL DATA: Foot x-ray shows no osteomyelitis. No other bone destruction. LABORATORY DATA: White count 6.8, hemoglobin 12.2, and platelets are 307. No differential done, but earlier showed some lymphopenia. His electrolytes normal other than a chloride of 108. His BUN 16, creatinine 1.2, glucose initially 373, now 91. Hemoglobin A1c 9.5%. CRP 6.4. Urinalysis not repeated. ASSESSMENT: 1. Diabetic foot infection on the left side with soft tissue infection at a minimum. He may have underlying chronic osteomyelitis of the 5th metatarsal remnant. This also may be soft tissue only. His wound culture showed few gram-positive cocci. Blood cultures, no growth so far. 2. Diabetes mellitus, not well controlled. 3. Peripheral vascular disease. 4. Allergies as above. RECOMMENDATIONS: 1. Hold doxycycline. 2. Continue vancomycin day 3. 3. MRI of the foot as scheduled and agree. Dr. Cartagena is also planning on surgical intervention. Length of antibiotics
[2020-03-10] MEDS: LOVASTATIN 20 MG TABLET 40 MG PO (23:30)
[2020-03-11] VITALS (12 sets, daily range): BP systolic 112–183; BP diastolic 61–76; PULSE 63–81; RESP 12–20; TEMP 36–36.7; O2SAT 92–100
[2020-03-11 05:40] LABS: Hematocrit 36.5 % (42.0-52.0); Hemoglobin 12.2 g/dL (14.0-18.0); Mean Corpuscular HGB Conc 33.4 g/dl (32-36); Mean Corpuscular Hemoglobin 29.5 pg (26-34); Mean Corpuscular Volume 88.4 fl (80-100); Platelet Count Result 325 k/mm3 (150-375); Red Blood Count 4.13 M/mm3 (4.6-6.20); Red Cell Distribution Width 13.6 % (11.5-14.5); White Blood Count 7.8 K/mm3 (4.5-10.0)
[2020-03-11 05:52] LABS: Anion Gap 7.6 mmol/L (7-16); Blood Urea Nitrogen 12 mg/dL (9-20); Calcium 7.9 mg/dL (8.4-10.2); Carbon Dioxide 24 mmol/L (22-30); Chloride 109 mmol/L (98-107); Estimated CRCL calculation 72 ml/min; Estimated Glomerular Filt Rate > 60; Glucose 129 mg/dL (75-110); Potassium 3.6 mmol/L (3.4-5.0); Sodium 137 mmol/L (137-145)
--- NOTE | 2020-03-11 08:05 | PC.NURSE ---
DR BECKER NOTIFIED OF BP 156/60 AND NPO NO NEW ORDERS RECEIVED
[2020-03-11 09:01] LABS: Glucose Point of Care 93 (65-105)
--- NOTE | 2020-03-11 09:32 | WPDPN ---
Objective Data Vital Signs Vital Signs: Vital Signs - 24 hr 03/10/20 14:00 03/10/20 16:00 03/10/20 20:00 Temperature 36.2 C L 36.2 C L 36.5 C Pulse Rate 78 78 70 Respiratory Rate 20 20 20 Blood Pressure 180/61 H 176/64 H 167/60 H Pulse Oximetry 95 96 97 03/11/20 04:00 03/11/20 08:03 Temperature 36.2 C L Pulse Rate 81 Respiratory Rate 20 Blood Pressure 183/76 H 156/62 H Pulse Oximetry 100 Intake/Output Intake/Output: Intake & Output 03/08/20 03/09/20 03/10/20 03/11/20 23:59 23:59 23:59 23:59 Intake Total 300 4339 4290 0 Output Total 600 300 Balance 300 3739 3990 0 Meds/Results Medications: Active Medications Generic Name Dose Route Start Last Admin Trade Name Freq PRN Reason Stop Dose Admin Acetaminophen 650 mg 03/08/20 19:04 03/09/20 19:50 Tylenol Tablet PO 650 mg Q4H PRN Administration Mild Pain (1-3) or Fever Cilostazol 100 mg 03/11/20 06:30 Pletal PO BIDAC KAYLI Dextrose 12.5 gm 03/09/20 00:18 Dextrose 50% Syringe IV PUSH PRN PRN Hypoglycemia Protocol Glimepiride 4 mg 03/11/20 08:00 Amaryl PO BIDWM KAYLI Glucagon 1 mg 03/09/20 00:18 Glucagon For Inj IM PRN PRN Hypoglycemia Protocol Glucose 15 gm 03/09/20 00:18 Glutose 15 PO PRN PRN Hypoglycemia Protocol Hydrochlorothiazide 25 mg 03/11/20 09:00 Hydrochlorothiazide PO DAILY KAYLI Sodium Chloride 1,000 mls @ 125 mls/hr 03/08/20 19:05 03/10/20 23:25 Normal Saline Iv IV CONT 125 mls/hr .Q8H KAYLI Administration Vancomycin HCl 1,500 mg in 500 mls @ 333.333 mls/hr 03/09/20 15:00 03/10/20 15:01 Vancomycin 1,500 Mg/D5w 500 Ml IVPB 333 mls/hr Q24H KAYLI Administration Dextrose 1,000 mls @ 100 mls/hr 03/09/20 00:18 Dextrose 5% 1,000 Ml IVPB PRN PRN Hypoglycemia Protocol Potassium Chloride 500 mls @ 125 mls/hr 03/11/20 07:31 03/11/20 08:00 Kcl 40 Meq/D5w 500 Ml Peripheral IVPB 03/11/20 11:30 125 mls/hr ONCE ONE Administration Insulin Aspart 3 - 6 units 03/09/20 08:00 03/11/20 07:43 Novolog SUB-Q Not Given TIDWM KAYLI Protocol Insulin Glargine 40 units 03/09/20 00:20 03/10/20 22:18 Lantus SUB-Q Not Given HS KAYLI Isosorbide Mononitrate 60 mg 03/11/20 09:00 Imdur PO DAILY KAYLI Lovastatin 40 mg 03/10/20 21:00 03/10/20 23:30 Lovastatin PO 40 mg HS KAYLI Administration Ondansetron HCl 4 mg 03/08/20 19:04 Zofran Inj IV PUSH Q4H PRN Nausea Radiology Results: ITS Impressions Foot X-Ray 03/08/20 18:51 Impression: 1: No evidence for osteomyelitis. Soft tissue gas adjacent to the fourth and fifth metatarsals, possibly cellulitis. If there is continued concern for osteomyelitis, correlation with MRI is recommended. Doppler Study Ultrasound 03/09/20 14:07 IMPRESSION: Couldn't obtain lower extremity pressures. Monophasic waveforms. Foot MRI 03/11/20 08:36 IMPRESSION: 1. Osteomyelitis involving the first, third, and fifth metatarsals. Labs Labs: Laboratory Results - last 24 hr 03/10/20 03/10/20 03/10/20 11:34 16:56 20:36 WBC RBC Hgb Hct MCV MCH MCHC RDW Plt Count MPV Sodium Potassium Chloride Carbon Dioxide Anion Gap BUN Creatinine Estim Creat Clear Calc Estimated GFR Glucose POC Capillary Glucose 166 H 242 H 254 H Calcium 03/11/20 03/11/20 03/11/20 05:20 05:20 07:41 WBC 7.8 RBC 4.13 L Hgb 12.2 L Hct 36.5 L MCV 88.4 MCH 29.5 MCHC 33.4 RDW 13.6 Plt Count 325 MPV 10.0 Sodium 137 Potassium 3.6 Chloride 109 H Carbon Dioxide 24 Anion Gap 7.6 BUN 12 Creatinine 1.00 Estim Creat Clear Calc 72 Estimated GFR > 60 Glucose 129 H POC Capillary Glucose 93 Calcium 7.9 L Quality VTE Prophylaxis VTE prophylaxis: mechanical ordered
[2020-03-11] MEDS: cilostazoL 100 MG TABLET PO ×2 (10:36→19:12)
[2020-03-11] MEDS: ISOSORBIDE MONONITRATE 60 MG TAB.ER.24H PO (10:36)
[2020-03-11 11:23] LABS: Glucose Point of Care 120 (65-105)
--- NOTE | 2020-03-11 11:52 | PC.NURSE ---
DR MARTINO AWARE OF HOLDING GLIMEPIRIDE THIS AM, PT NPO
--- NOTE | 2020-03-11 11:53 | WPDANESEPPF ---
Anes - Initial Pre Proc Eval Procedure: Operation Date: 03/11/20 15:30 Proposed Procedures p LEFT 5TH METATARSAL AMPUTATION - Jose Cartagena MD Date/Time: 03/11/20 11:53 Surgeon: Jayne Patel DO Pre Op Diagnosis: foot ulcer and osteomylitis Patient Data Age: 74 Gender: M Height: 26.21 m Weight: 88.18 kg Last Vital Signs Temp 36.2 C L 03/11/20 04:00 Pulse 81 03/11/20 04:00 Resp 20 03/11/20 04:00 BP 156/62 H 03/11/20 08:03 Pulse Ox 100 03/11/20 04:00 Allergies Allergy/AdvReac Type Severity Reaction Status Date / Time CRISELDA Inhibitors Allergy Unknown Cough Verified 03/08/20 18:29 Home Medications Medication Instructions Recorded Confirmed Type clopidogrel 75 mg tablet 75 mg PO DAILY #90 tablet 08/29/19 03/08/20 Rx insulin syringe-needle U-100 1 mL #100 each 09/02/19 03/08/20 History 29 gauge x 12/26 cilostazol 100 mg tablet 100 mg PO BID 09/03/19 03/08/20 History doxycycline hyclate 100 mg tablet 100 mg PO BID tablet 09/03/19 03/08/20 History glimepiride 4 mg tablet 4 mg PO BID 09/03/19 03/08/20 History pen needle, diabetic 32 gauge x #100 each 11/12/19 03/08/20 Rx hydrochlorothiazide 25 mg tablet 25 mg PO DAILY #90 tablet 12/22/19 03/08/20 Rx dulaglutide 0.75 mg/0.5 mL 1.5 mg SUB-Q WEEKLY ml 01/08/20 03/08/20 History subcutaneous pen injector Lantus Solostar U-100 Insulin 40 unit SUBCUT HS 03/08/20 03/08/20 History isosorbide mononitrate 60 mg PO DAILY 03/08/20 03/08/20 History lovastatin 40 mg PO HS 03/08/20 03/08/20 History Laboratory Tests 03/10/20 03/10/20 03/11/20 16:56 20:36 05:20 WBC 7.8 K/mm3 K/mm3 (4.5-10.0) RBC 4.13 M/mm3 L M/mm3 (4.6-6.20) Hgb 12.2 g/dL L g/dL (14.0-18.0) Hct 36.5 % L % (42.0-52.0) MCV 88.4 fl fl (80-100) MCH 29.5 pg pg (26-34) MCHC 33.4 g/dl g/dl (32-36) RDW 13.6 % % (11.5-14.5) Plt Count 325 k/mm3 k/mm3 (150-375) MPV 10.0 fl fl (7.4-10.4) Sodium Potassium Chloride Carbon Dioxide Anion Gap BUN Creatinine Estim Creat Clear Calc Estimated GFR Glucose POC Capillary Glucose 242 mg/dl H mg/dl 254 mg/dl H mg/dl (65-105) (65-105) Calcium 03/11/20 03/11/20 03/11/20 05:20 07:41 11:13 WBC RBC Hgb Hct MCV MCH MCHC RDW Plt Count MPV Sodium 137 mmol/L mmol/L (137-145) Potassium 3.6 mmol/L mmol/L (3.4-5.0) Chloride 109 mmol/L H mmol/L (98-107) Carbon Dioxide 24 mmol/L mmol/L (22-30) Anion Gap 7.6 mmol/L mmol/L (7-16) BUN 12 mg/dL mg/dL (9-20) Creatinine 1.00 mg/dL mg/dL (0.7-1.3) Estim Creat Clear Calc 72 ml/min ml/min Estimated GFR > 60 (59 - ) Glucose 129 mg/dL H mg/dL (75-110) POC Capillary Glucose 93 mg/dl mg/dl 120 mg/dl H mg/dl (65-105) (65-105) Calcium 7.9 mg/dL L mg/dL (8.4-10.2) Patient hx anesthesia problems: none Family hx anesthesia problems: none PMFSH Past Medical History Medical History (Updated 03/11/20 @ 11:55 by Patric Michael MD) Amputation of toe of left foot Arthritis CAD (coronary artery disease) Diabetes History of amputation of toe Hyperlipidemia Hypertension PVD (peripheral vascular disease) Surgical History Surgical History (Updated 03/11/20 @ 11:55 by Patric Michael MD) Hx of coronary artery bypass graft 4 VESSEL 2004, NO FOUNDER PRESENTLY Family History Family History (Updated 03/08/20 @ 22:03 by Katya Martines RN) Mother Family history of lung cancer Patient's mother is Father Family history of throat cancer S
[2020-03-11] MEDS: SODIUM CHLORIDE 0.9% IV 1,000 ML 125 ML IV CONT ×2 (11:55→20:16)
--- NOTE | 2020-03-11 12:37 | PM.IMPN ---
Progress Note: A&P Assessment and Plan (1) Chronic foot ulcer: Qualifiers: Laterality: left Non-pressure ulcer stage: with necrosis of bone Qualified Code(s): L97.524 - Non-pressure chronic ulcer of other part of left foot with necrosis of bone Code(s): L97.509 - Non-pressure chronic ulcer of other part of unspecified foot with unspecified severity Status: Acute Assessment and Plan: 03/11/20 12:37 Chris Handley is a 74 year old male with past medical history of uncontrolled diabetes his recent hemoglobin A1c is 9.5, patient had been seen by wound clinic for diabetic foot and had been treated however patient was seen by his surgeon 03/08 and his wound was getting worse to the point where the bone is exposed and patient was asked to come to emergency department for further evaluation, patient denies any pain, denies any fever or chills, patient states that he has had history of diabetic foot ulcers and seen by wound clinic as well as Dr. Zamora. patient will be seen by surgeon and further recommendation to follow, started on vancomycin. will have wound nurse collect simple for wound culture. patient CRP is elevated,on 03/09 patient was seen the surgeon and suggested recently patient had MRI at outside facility and it did show patient has a early sign osteomyelitis, to further evaluate patient had a repeat MRI of the foot showed Osteomyelitis involving the first, third, and fifth metatarsals. patient is seen by Dr. Cartagena, patient is scheduled for debridement today further recommendation to follow (2) Diabetes: Qualifiers: Diabetes mellitus type: type 2 Diabetes mellitus termite treater helper insulin use: with termite treater helper use Diabetes mellitus complication status: with other specified complication Qualified Code(s): E11.69 - Type 2 diabetes mellitus with other specified complication; Z79.4 - intermediate (current) use of insulin Code(s): E11.9 - Type 2 diabetes mellitus without complications Status: Acute Assessment and Plan: patient recent hemoglobin A1c is 9.5 will continue current regimen and have life skills educator consult the patient Subjective Date/time seen: 03/11/20 12:37 Chris Handley is a 74 year old male with past medical history of uncontrolled diabetes his recent hemoglobin A1c is 9.5, patient had been seen by wound clinic for diabetic foot and had been treated however patient was seen by his surgeon 03/08 and his wound was getting worse to the point where the bone is exposed and patient was asked to come to emergency department for further evaluation, patient denies any pain, denies any fever or chills, patient states that he has had history of diabetic foot ulcers and seen by wound clinic as well as Dr. Zamora. patient will be seen by surgeon and further recommendation to follow, started on vancomycin. will have wound nurse collect simple for wound culture. patient CRP is elevated,on 03/09 patient was seen the surgeon and suggested recently patient had MRI at outside facility and it did show patient has a early sign osteomyelitis, to further evaluate patient had a repeat MRI of the foot showed Osteomyelitis involving the first, third, and fifth metatarsals. patient is seen by Dr. Cartagena, patient is scheduled for debridement today further recommendation to follow Review of Systems Review of Systems: All systems reviewed & are unremarkable except as noted in HPI and below Exam Const: General: comfortable and no acute distress HENMT: General nose exam: Normal nares present Mouth: Yes moist mucous membranes Eyes: General: appearance normal, both eyes and all related structures Sclera: sclerae normal Neck: Neck: supple Resp: Effort & Inspection: normal respiratory effort Auscultation: clear to auscultation bilaterally Cardio: Rate: regular rate Rhythm: regular rhythm GI: Auscultation: normal bowel sounds Skin: General skin exam: normal color Neuro: Speech: normal speech Senso
--- NOTE | 2020-03-11 14:02 | WPDINFPN2 ---
Progress Note: A&P Assessment and Plan (1) Diabetic foot infection: Onset Date: 03/03/20 Code(s): E11.628 - Type 2 diabetes mellitus with other skin complications; L08.9 - Local infection of the skin and subcutaneous tissue, unspecified Status: Acute Assessment and Plan: 1. Left DFI,MRI demonstrates OM of multiple metatarsals remnants. Clinically, this is chronic osteomyelitis 2. DM 3. Left TMA August 16. ASPVD REC Vanc #4, continue. For possible operative intervention today. F/U micro. I anticipate short term IV therapy, then oral e.g., ciprofloxacin/rifampin. Subjective Date/time seen: 03/11/20 14:02 Interval history: no new complaints Exam Narrative: Exam Narrative: afebrile Const: General: no acute distress Resp: Effort & Inspection: normal respiratory effort Auscultation: clear to auscultation bilaterally Cardio: Rate: regular rate Rhythm: regular rhythm Heart sounds: no murmurs GI: Inspection: non-distended GI Palp: Yes Soft to palpation, No Tenderness to palpation present (GI) and No Guarding due to palpation present (GI) Objective Data Vital Signs Vital Signs: Vital Signs - 24 hr 03/10/20 16:00 03/10/20 20:00 03/11/20 04:00 Temperature 36.2 C L 36.5 C 36.2 C L Pulse Rate 78 70 81 Respiratory Rate 20 20 20 Blood Pressure 176/64 H 167/60 H 183/76 H Pulse Oximetry 96 97 100 03/11/20 08:03 Temperature Pulse Rate Respiratory Rate Blood Pressure 156/62 H Pulse Oximetry Intake/Output Intake/Output: Intake & Output 03/08/20 03/09/20 03/10/20 03/11/20 23:59 23:59 23:59 23:59 Intake Total 300 4339 4290 1000 Output Total 600 300 Balance 300 3739 3990 1000 Meds/Results Medications: Active Medications Generic Name Dose Route Start Last Admin Trade Name Freq PRN Reason Stop Dose Admin Acetaminophen 650 mg 03/08/20 19:04 03/09/20 19:50 Tylenol Tablet PO 650 mg Q4H PRN Administration Mild Pain (1-3) or Fever Cilostazol 100 mg 03/11/20 06:30 03/11/20 10:36 Pletal PO 100 mg BIDAC KAYLI Administration Dextrose 12.5 gm 03/09/20 00:18 Dextrose 50% Syringe IV PUSH PRN PRN Hypoglycemia Protocol Fentanyl Citrate 25 mcg 03/11/20 11:53 Sublimaze IV PUSH Q2M PRN Pain Glimepiride 4 mg 03/11/20 08:00 03/11/20 09:49 Amaryl PO Not Given BIDWM KAYLI Glucagon 1 mg 03/09/20 00:18 Glucagon For Inj IM PRN PRN Hypoglycemia Protocol Glucose 15 gm 03/09/20 00:18 Glutose 15 PO PRN PRN Hypoglycemia Protocol Hydrochlorothiazide 25 mg 03/11/20 09:00 Hydrochlorothiazide PO DAILY KAYLI Hydromorphone HCl 0.25 mg 03/11/20 11:53 Dilaudid Inj IV PUSH Q5M PRN Pain Sodium Chloride 1,000 mls @ 125 mls/hr 03/08/20 19:05 03/11/20 11:55 Normal Saline Iv IV CONT 125 mls/hr .Q8H KAYLI Administration Vancomycin HCl 1,500 mg in 500 mls @ 333.333 mls/hr 03/09/20 15:00 03/10/20 15:01 Vancomycin 1,500 Mg/D5w 500 Ml IVPB 333 mls/hr Q24H KAYLI Administration Dextrose 1,000 mls @ 100 mls/hr 03/09/20 00:18 Dextrose 5% 1,000 Ml IVPB PRN PRN Hypoglycemia Protocol Lactated Ringer's 1,000 mls @ 30 mls/hr 03/11/20 11:55 Lr - Lactated Ringers Iv IV CONT .Q24H KAYLI Lactated Ringer's 1,000 mls @ 30 mls/hr 03/11/20 11:55 Lr - Lactated Ringers Iv IV CONT .Q24H KAYLI Insulin Aspart 3 - 6 units 03/09/20 08:00 03/11/20 11:20 Novolog SUB-Q Not Given TIDWM KAYLI Protocol Insulin Glargine 40 units 03/09/20 00:20 03/10/20 22:18 Lantus SUB-Q Not Given HS KAYLI Isosorbide Mononitrate 60 mg 03/11/20 09:00 03/11/20 10:36 Imdur PO 60 mg DAILY KAYLI Administration Lovastatin 40 mg 03/10/20 21:00 03/10/20 23:30 Lovastatin PO 40 mg HS KAYLI Administration Ondansetron HCl 4 mg 03/08/20 19:04 Zofran Inj IV PUSH Q4H PRN Nausea Ondansetron HCl 4 mg 03/11
[2020-03-11] MEDS: LACTATED RINGERS 1,000 ML 30 ML IV CONT (14:15)
--- NOTE | 2020-03-11 14:39 | PC.NURSE ---
To OR per bed, IV sl rt fa. SBAR sent with patient..
[2020-03-11] MEDS: LIDO 1%/EPINEPHRINE 1:100,000 20 ML VIAL INFILTRATE (16:46)
[2020-03-11 17:41] LABS: Glucose Point of Care 92 (65-105)
--- NOTE | 2020-03-11 18:14 | PM.OP ---
Procedure Note - Brief Procedure Note - Brief Date of procedure: 03/11/20 Pre-op diagnosis: foot ulcer and osteomylitis Post-op diagnosis: same Procedure performed: Left 5th metatarsal amputation. Debridement of gangrenous muscle and legament tissue with knife and scissors Surgeon: Jose Cartagena MD
--- NOTE | 2020-03-11 18:19 | SUR.PHASEI ---
1817 SBAR FAXED FLOOR NOTIFIED
[2020-03-11] MEDS: hydroCHLOROthiazide 25 MG TABLET PO (19:12)
[2020-03-11] MEDS: GLIMEPIRIDE 2 MG TABLET 4 MG PO (19:12)
--- NOTE | 2020-03-11 19:41 | P.OP_ITS ---
Procedure Note - Detailed Date of procedure: 03/11/20 Pre-op diagnosis: foot ulcer and osteomylitis Post-op diagnosis: same Procedure performed: Sharp excision of gangrenous muscle and ligament tissue 3 cm and amputation of the 5th metatarsal. Description of procedure: the left foot was marked in the holding area. The patient was taken to the operating room where he was placed supine on the operating table. A time-out was held and confirmed. He was given general endotracheal anesthesia. The foot was prepped and draped in usual fashion. No tourniquet was utilized and no local anesthetic was utilized. The skin surrounding the 2 cm ulceration at the head of the 5th metatarsal stump was sharply cut away with a 15 blade. The 5th metatarsal shaft was freed from surrounding tissue and adjacent nonviable gangrenous subcutaneous tissue and muscle tissue and ligamentous tissue was trimmed away with scissors or knife. The 5th metatarsal was dissected back near its base and transected with a large bone cutter. The end of the stump was smoothed with a rongeur. There was little bleeding but we used the cautery to try to stop all bleeding sites the wound was irrigated copiously with bacitracin solution. Kerlix sponges were viridiana tha in the wound and the foot was wrapped with Kerlix sponges and roll gauze. a 3 in [place] wrap was applied over that intended not to cause excessive compression . The patient was discharged from the operating room in stable condition, no cultures were sent Surgeon: Jose Cartagena MD
[2020-03-11] MEDS: LOVASTATIN 20 MG TABLET 40 MG PO (20:17)
[2020-03-11] MEDS: INSULIN GLARGINE (*BKC) 100 UNITS/ML 40 UNITS SUB-Q (20:20)
[2020-03-11 21:01] LABS: Glucose Point of Care 161 (65-105)
[2020-03-12 02:00] VITALS: BP 158/53; PULSE 86; RESP 18; TEMP 36.1; O2SAT 97
[2020-03-12] MEDS: SODIUM CHLORIDE 0.9% IV 1,000 ML 125 ML IV CONT (02:21)
[2020-03-12 05:28] LABS: Hemoglobin 12.2 g/dL (14.0-18.0); Mean Corpuscular Hemoglobin 29.7 pg (26-34); Mean Platelet Volume 9.6 fl (7.4-10.4); Platelet Count Result 332 k/mm3 (150-375); Red Blood Count 4.11 M/mm3 (4.6-6.20); Red Cell Distribution Width 13.6 % (11.5-14.5); White Blood Count 8.1 K/mm3 (4.5-10.0)
[2020-03-12 05:40] VITALS: BP 178/71; PULSE 80; RESP 20; TEMP 36.1; O2SAT 100
[2020-03-12 05:40] LABS: Blood Urea Nitrogen 14 mg/dL (9-20); Calcium 7.7 mg/dL (8.4-10.2); Carbon Dioxide 26 mmol/L (22-30); Chloride 104 mmol/L (98-107); Estimated CRCL calculation 61 ml/min; Estimated Glomerular Filt Rate 59; Glucose 281 mg/dL (75-110); Sodium 134 mmol/L (137-145)
[2020-03-12] MEDS: cilostazoL 100 MG TABLET PO ×2 (06:16→17:32)
--- NOTE | 2020-03-12 07:39 | WPDPN ---
Progress Note: A&P Additional Plan Discussed MRI findings and resent treatment history and common outcomes with this senario. Mentioned possible further amputations in series. Also explained BKA and its benefits in terms of mental and metabolic stability. Not suggesting it on this admission, but patient stated he did not wish to undergo serial amputations. Will await Dr Miranda's input. Dressings per [facility]. Discharge soon. I will help coordinate discharge care with Dr Peña if needed. Exam Narrative: Exam Narrative: Wound redressed. Some overnight oozing. No active bleeding. No evident necrotic tissue. Objective Data Vital Signs Vital Signs: Vital Signs - 24 hr 03/11/20 08:03 03/11/20 14:23 03/11/20 17:35 Temperature 36.6 C 36.2 C L Pulse Rate 81 77 Respiratory Rate 16 12 Blood Pressure 156/62 H 127/68 112/64 Pulse Oximetry 97 98 03/11/20 17:50 03/11/20 18:05 03/11/20 18:20 Temperature Pulse Rate 70 68 70 Respiratory Rate 12 16 16 Blood Pressure 123/61 133/73 127/66 Pulse Oximetry 98 92 93 03/11/20 18:35 03/11/20 19:10 03/11/20 19:25 Temperature 36.7 C 36.1 C L Pulse Rate 69 70 63 Respiratory Rate 14 18 18 Blood Pressure 142/75 H 145/68 H 128/64 Pulse Oximetry 93 97 97 03/11/20 19:55 03/11/20 21:54 03/12/20 02:00 Temperature 36.2 C L 36.0 C L 36.1 C L Pulse Rate 67 68 86 Respiratory Rate 18 20 18 Blood Pressure 130/63 147/64 H 158/53 H Pulse Oximetry 97 98 97 03/12/20 05:40 Temperature 36.1 C L Pulse Rate 80 Respiratory Rate 20 Blood Pressure 178/71 H Pulse Oximetry 100 Intake/Output Intake/Output: Intake & Output 03/09/20 03/10/20 03/11/20 03/12/20 23:59 23:59 23:59 23:59 Intake Total 4339 2790 3700 1950 Output Total 600 300 Balance 3739 4490 3700 1950 Meds/Results Medications: Active Medications Generic Name Dose Route Start Last Admin Trade Name Freq PRN Reason Stop Dose Admin Acetaminophen 650 mg 03/08/20 19:04 07/28/20 19:50 Tylenol Tablet PO 650 mg Q4H PRN Administration Mild Pain (1-3) or Fever Hydrocodone Bitart/Acetaminophen 1 tab 03/11/20 23:29 03/12/20 06:16 [place] 5-325 Mg PO 1 tab Q4H PRN Administration Pain Rated 4-6 Cilostazol 100 mg 03/11/20 06:30 03/12/20 06:16 Pletal PO 100 mg BIDAC KAYLI Administration Dextrose 12.5 gm 03/09/20 00:18 Dextrose 50% Syringe IV PUSH PRN PRN Hypoglycemia Protocol Fentanyl Citrate 25 mcg 03/11/20 11:53 03/11/20 18:20 Sublimaze IV PUSH 25 mcg Q2M PRN Administration Pain Glimepiride 4 mg 03/11/20 08:00 03/11/20 19:12 Amaryl PO 4 mg BIDWM KAYLI Administration Glucagon 1 mg 03/09/20 00:18 Glucagon For Inj IM PRN PRN Hypoglycemia Protocol Glucose 15 gm 03/09/20 00:18 Glutose 15 PO PRN PRN Hypoglycemia Protocol Hydrochlorothiazide 25 mg 03/11/20 09:00 03/11/20 19:12 Hydrochlorothiazide PO 25 mg DAILY KAYLI Administration Hydromorphone HCl 0.25 mg 03/11/20 11:53 Dilaudid Inj IV PUSH Q5M PRN Pain Sodium Chloride 1,000 mls @ 125 mls/hr 03/08/20 19:05 03/12/20 02:21 Normal Saline Iv IV CONT 125 mls/hr .Q8H KAYLI Administration Dextrose 1,000 mls @ 100 mls/hr 03/09/20 00:18 Dextrose 5% 1,000 Ml IVPB PRN PRN Hypoglycemia Protocol Vancomycin HCl 1,500 mg in 500 mls @ 333.333 mls/hr 03/12/20 03:00 03/12/20 03:53 Vancomycin 1,500 Mg/D5w 500 Ml IVPB Infused Q12H KAYLI Infusion Insulin Aspart 3 - 6 units 03/09/20 08:00 03/11/20 18:33 Novolog SUB-Q Not Given TIDWM KAYLI Protocol Insulin Glargine 40 units 03/09/20 00:20 03/11/20 20:20 Lantus SUB-Q 40 units HS KAYLI Administration Isosorbide Mononitrate 60 mg 03/11/20 09:00 03/11/20 10:36 Imdur PO 60 mg DAILY KAYLI Administration Lovastatin 40 mg 03/10/20 21:00 03/11/20 20:17 Lovastatin PO 40 mg HS KAYLI Administration Onda
--- NOTE | 2020-03-12 07:56 | WPDANESPN ---
Anes - Prog Note Post-Op Date/Time: 03/12/20 07:56 Cardiovascular status: normal Respiratory status: normal Airway patency: baseline Mental status: baseline Post-Op hydration status: normal Vital Signs: Last Vital Signs Temp 36.1 C L 03/12/20 05:40 Pulse 80 03/12/20 05:40 Resp 20 03/12/20 05:40 BP 178/71 H 03/12/20 05:40 Pulse Ox 100 03/12/20 05:40 I/O: Intake & Output 03/11/20 03/11/20 03/12/20 15:59 23:59 07:59 Intake Total 1500 2200 1950 Balance 1500 2200 1950 Laboratory Tests 03/12/20 05:12 03/12/20 05:11 03/11/20 03/11/20 03/11/20 07:41 11:13 13:58 WBC RBC Hgb Hct MCV MCH MCHC RDW Plt Count MPV Sodium Potassium Chloride Carbon Dioxide Anion Gap BUN Creatinine Estim Creat Clear Calc Estimated GFR Glucose POC Capillary Glucose 93 120 H Calcium Vancomycin Trough 8.0 L 03/11/20 03/11/20 03/12/20 17:39 20:20 05:11 WBC RBC Hgb Hct MCV MCH MCHC RDW Plt Count MPV Sodium 134 L Potassium 4.0 Chloride 104 Carbon Dioxide 26 Anion Gap 8.0 BUN 14 Creatinine 1.20 Estim Creat Clear Calc 61 Estimated GFR 59 Glucose 281 H POC Capillary Glucose 92 161 H Calcium 7.7 L Vancomycin Trough 03/12/20 05:12 WBC 8.1 RBC 4.11 L Hgb 12.2 L Hct 37.0 L MCV 90.0 MCH 29.7 MCHC 33.0 RDW 13.6 Plt Count 332 MPV 9.6 Sodium Potassium Chloride Carbon Dioxide Anion Gap BUN Creatinine Estim Creat Clear Calc Estimated GFR Glucose POC Capillary Glucose Calcium Vancomycin Trough Microbiology 03/09/20 12:48 Foot Left Wound Culture - Preliminary Staphylococcus aureus Post-procedural complaints: none Patient Feedback: Patient satisfied with anesthetic care.
[2020-03-12 08:05] LABS: Glucose Point of Care 171 (65-105)
[2020-03-12 09:50] VITALS: BP 150/61; PULSE 69; RESP 18; TEMP 36.7; O2SAT 98
[2020-03-12] MEDS: hydroCHLOROthiazide 25 MG TABLET PO (09:50)
[2020-03-12] MEDS: ISOSORBIDE MONONITRATE 60 MG TAB.ER.24H PO (09:50)
[2020-03-12] MEDS: GLIMEPIRIDE 2 MG TABLET 4 MG PO ×2 (09:50→17:32)
[2020-03-12 10:36] VITALS: BP 140/60; PULSE 69
[2020-03-12] MEDS: SILVERGEL (ELTA) 45 ML 1 APPLIC TOPICAL (11:07)
[2020-03-12] MEDS: CLOPIDOGREL BISULFATE 75 MG TABLET PO (11:07)
[2020-03-12 12:16] LABS: Glucose Point of Care 180 (65-105)
--- NOTE | 2020-03-12 12:42 | WPDPN ---
Progress Note: A&P Additional Plan Dr Miranda does not want to restart home iv antibiotics. Pt may be discharged on current [facility] recommended dressing care, and antibiotics per Dr Miranda. Pt may F/U with DR Cartagena in two weeks. Pt may ambulate only as needed with walker with WB on heel. Objective Data Vital Signs Vital Signs: Vital Signs - 24 hr 03/11/20 14:23 03/11/20 17:35 03/11/20 17:50 Temperature 36.6 C 36.2 C L Pulse Rate 81 77 70 Respiratory Rate 16 12 12 Blood Pressure 127/68 112/64 123/61 Pulse Oximetry 97 98 98 03/11/20 18:05 03/11/20 18:20 03/11/20 18:35 Temperature Pulse Rate 68 70 69 Respiratory Rate 16 16 14 Blood Pressure 133/73 127/66 142/75 H Pulse Oximetry 92 93 93 03/11/20 19:10 03/11/20 19:25 03/11/20 19:55 Temperature 36.7 C 36.1 C L 36.2 C L Pulse Rate 70 63 67 Respiratory Rate 18 18 18 Blood Pressure 145/68 H 128/64 130/63 Pulse Oximetry 97 97 97 03/11/20 21:54 03/12/20 02:00 03/12/20 05:40 Temperature 36.0 C L 36.1 C L 36.1 C L Pulse Rate 68 86 80 Respiratory Rate 20 18 20 Blood Pressure 147/64 H 158/53 H 178/71 H Pulse Oximetry 98 97 100 03/12/20 09:50 03/12/20 10:36 Temperature 36.7 C Pulse Rate 69 69 Respiratory Rate 18 Blood Pressure 150/61 H 140/60 Pulse Oximetry 98 Intake/Output Intake/Output: Intake & Output 03/09/20 03/10/20 03/11/20 03/12/20 23:59 23:59 23:59 23:59 Intake Total 4339 2390 3700 2190 Output Total 600 300 Balance 3739 4490 3700 2190 Meds/Results Medications: Active Medications Generic Name Dose Route Start Last Admin Trade Name Freq PRN Reason Stop Dose Admin Acetaminophen 650 mg 03/08/20 19:04 03/09/20 19:50 Tylenol Tablet PO 650 mg Q4H PRN Administration Mild Pain (1-3) or Fever Hydrocodone Bitart/Acetaminophen 1 tab 03/11/20 23:29 03/12/20 06:16 [place] 5-325 Mg PO 1 tab Q4H PRN Administration Pain Rated 4-6 Cilostazol 100 mg 03/11/20 06:30 03/12/20 06:16 Pletal PO 100 mg BIDAC KAYLI Administration Clopidogrel Bisulfate 75 mg 03/12/20 09:00 03/12/20 11:07 Plavix PO 75 mg QAM KAYLI Administration Dextrose 12.5 gm 03/09/20 00:18 Dextrose 50% Syringe IV PUSH PRN PRN Hypoglycemia Protocol Fentanyl Citrate 25 mcg 03/11/20 11:53 03/11/20 18:20 Sublimaze IV PUSH 25 mcg Q2M PRN Administration Pain Glimepiride 4 mg 03/11/20 08:00 03/12/20 09:50 Amaryl PO 4 mg BIDWM KAYLI Administration Glucagon 1 mg 03/09/20 00:18 Glucagon For Inj IM PRN PRN Hypoglycemia Protocol Glucose 15 gm 03/09/20 00:18 Glutose 15 PO PRN PRN Hypoglycemia Protocol Hydrochlorothiazide 25 mg 03/11/20 09:00 03/12/20 09:50 Hydrochlorothiazide PO 25 mg DAILY KAYLI Administration Hydromorphone HCl 0.25 mg 03/11/20 11:53 Dilaudid Inj IV PUSH Q5M PRN Pain Sodium Chloride 1,000 mls @ 125 mls/hr 03/08/20 19:05 03/12/20 09:48 Normal Saline Iv IV CONT 0 mls/hr .Q8H KAYLI Infusion Dextrose 1,000 mls @ 100 mls/hr 03/09/20 00:18 Dextrose 5% 1,000 Ml IVPB PRN PRN Hypoglycemia Protocol Vancomycin HCl 1,500 mg in 500 mls @ 333.333 mls/hr 03/12/20 03:00 03/12/20 03:53 Vancomycin 1,500 Mg/D5w 500 Ml IVPB Infused Q12H KAYLI Infusion Insulin Aspart 3 - 6 units 03/09/20 08:00 03/12/20 12:21 Novolog SUB-Q Not Given TIDWM KAYLI Protocol Insulin Glargine 40 units 03/09/20 00:20 03/11/20 20:20 Lantus SUB-Q 40 units HS KAYLI Administration Isosorbide Mononitrate 60 mg 03/11/20 09:00 03/12/20 09:50 Imdur PO 60 mg DAILY KAYLI Administration Lovastatin 40 mg 03/10/20 21:00 03/11/20 20:17 Lovastatin PO 40 mg HS KAYLI Administration Ondansetron HCl 4 mg 03/08/20 19:04 Zofran Inj IV PUSH Q4H PRN Nausea Ondansetron HCl 4 mg 03/11/20 11:53 Zofran Inj IV PUSH ONCE PRN Nausea Silver Nitrate 1
[2020-03-12 14:00] VITALS: BMI 26.3
--- NOTE | 2020-03-12 14:40 | WPDINFPN2 ---
Progress Note: A&P Assessment and Plan (1) Diabetic foot infection: Onset Date: 03/03/20 Code(s): E11.628 - Type 2 diabetes mellitus with other skin complications; L08.9 - Local infection of the skin and subcutaneous tissue, unspecified Status: Acute Assessment and Plan: 1. Left DFI,MRI demonstrates OM of multiple metatarsals remnants. Clinically, this is chronic osteomyelitis. KYLEE on superficial swab 2. DM 3. Left TMA August 16. ASPVD REC Vanc #5, stop and place on clindamycin tid x 28 days , see orders. Ok home. Instructed patient on probiotic. Subjective Date/time seen: 03/12/20 14:40 Interval history: no new complaints. Operative note reviewed Exam Narrative: Exam Narrative: afebrile Skin: General skin exam: no rashes or lesions noted Extrem: Other: lateral left foot with dried blood on dressing. No lymphangitis Objective Data Vital Signs Vital Signs: Vital Signs - 24 hr 03/11/20 17:35 03/11/20 17:50 03/11/20 18:05 Temperature 36.2 C L Pulse Rate 77 70 68 Respiratory Rate 12 12 16 Blood Pressure 112/64 123/61 133/73 Pulse Oximetry 98 98 92 03/11/20 18:20 03/11/20 18:35 03/11/20 19:10 Temperature 36.7 C Pulse Rate 70 69 70 Respiratory Rate 16 14 18 Blood Pressure 127/66 142/75 H 145/68 H Pulse Oximetry 93 93 97 03/11/20 19:25 03/11/20 19:55 03/11/20 21:54 Temperature 36.1 C L 36.2 C L 36.0 C L Pulse Rate 63 67 68 Respiratory Rate 18 18 20 Blood Pressure 128/64 130/63 147/64 H Pulse Oximetry 97 97 98 03/12/20 02:00 03/12/20 05:40 03/12/20 09:50 Temperature 36.1 C L 36.1 C L 36.7 C Pulse Rate 86 80 69 Respiratory Rate 18 20 18 Blood Pressure 158/53 H 178/71 H 150/61 H Pulse Oximetry 97 100 98 03/12/20 10:36 Temperature Pulse Rate 69 Respiratory Rate Blood Pressure 140/60 Pulse Oximetry Intake/Output Intake/Output: Intake & Output 03/09/20 03/10/20 03/11/2003/12/20 23:59 23:59 23:59 23:59 Intake Total 4330 2936 3700 2190 Output Total 600 300 Balance 3739 4490 3700 2190 Meds/Results Medications: Active Medications Generic Name Dose Route Start Last Admin Trade Name Freq PRN Reason Stop Dose Admin Acetaminophen 650 mg 03/08/20 19:04 03/09/20 19:50 Tylenol Tablet PO 650 mg Q4H PRN Administration Mild Pain (1-3) or Fever Hydrocodone Bitart/Acetaminophen 1 tab 03/11/20 23:29 03/12/20 06:16 [place] 5-325 Mg PO 1 tab Q4H PRN Administration Pain Rated 4-6 Cilostazol 100 mg 03/11/20 06:30 03/12/20 06:16 Pletal PO 100 mg BIDAC KAYLI Administration Clindamycin HCl 300 mg 03/12/20 22:00 Cleocin Cap PO 04/09/20 22:01 Q8HR KAYLI Clopidogrel Bisulfate 75 mg 03/12/20 09:00 03/12/20 11:07 Plavix PO 75 mg QAM KAYLI Administration Dextrose 12.5 gm 03/09/20 00:18 Dextrose 50% Syringe IV PUSH PRN PRN Hypoglycemia Protocol Fentanyl Citrate 25 mcg 03/11/20 11:53 03/11/20 18:20 Sublimaze IV PUSH 25 mcg Q2M PRN Administration Pain Glimepiride 4 mg 03/11/20 08:00 03/12/20 09:50 Amaryl PO 4 mg BIDWM KAYLI Administration Glucagon 1 mg 03/09/20 00:18 Glucagon For Inj IM PRN PRN Hypoglycemia Protocol Glucose 15 gm 03/09/20 00:18 Glutose 15 PO PRN PRN Hypoglycemia Protocol Hydrochlorothiazide 25 mg 03/11/20 09:00 03/12/20 09:50 Hydrochlorothiazide PO 25 mg DAILY KAYLI Administration Hydromorphone HCl 0.25 mg 03/11/20 11:53 Dilaudid Inj IV PUSH Q5M PRN Pain Sodium Chloride 1,000 mls @ 125 mls/hr 03/08/20 19:05 03/12/20 09:48 Normal Saline Iv IV CONT 0 mls/hr .Q8H KAYLI Infusion Dextrose 1,000 mls @ 100 mls/hr 03/09/20 00:18 Dextrose 5% 1,000 Ml IVPB PRN PRN Hypoglycemia Protocol Insulin Aspart 3 - 6 units 03/09/20 08:00 03/12/20 12:21 Novolog SUB-Q Not Given TIDWM KAYLI Protocol Insulin Glargine 40 units 03/09/20 00:20
--- NOTE | 2020-03-12 15:00 | PM.DS ---
DS: Admitting Diagnosis Admitting Diagnosis Admitting Diagnosis: Non-pressure chronic ulcer of other part of left foot with necrosis of bone DS: Discharge Diagnosis Discharge Diagnosis (1) Chronic foot ulcer: Qualifiers: Laterality: left Non-pressure ulcer stage: with necrosis of bone Qualified Code(s): L97.524 - Non-pressure chronic ulcer of other part of left foot with necrosis of bone Code(s): L97.509 - Non-pressure chronic ulcer of other part of unspecified foot with unspecified severity Status: Acute Assessment and Plan: 03/11/20 12:37 Chris Handley is a 74 year old male with past medical history of uncontrolled diabetes his recent hemoglobin A1c is 9.5, patient had been seen by wound clinic for diabetic foot and had been treated however patient was seen by his surgeon 03/08 and his wound was getting worse to the point where the bone is exposed and patient was asked to come to emergency department for further evaluation, patient denies any pain, denies any fever or chills, patient states that he has had history of diabetic foot ulcers and seen by wound clinic as well as Dr. Zamora. patient will be seen by surgeon and further recommendation to follow, started on vancomycin. will have wound nurse collect simple for wound culture. patient CRP is elevated,on 03/09 patient was seen the surgeon and suggested recently patient had MRI at outside facility and it did show patient has a early sign osteomyelitis, to further evaluate patient had a repeat MRI of the foot showed Osteomyelitis involving the first, third, and fifth metatarsals. patient is seen by Dr. 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: with termite control technician use Diabetes mellitus complication status: with other specified complication Qualified Code(s): E11.69 - Type 2 diabetes mellitus with other specified complication; Z79.4 - watermaster (current) use of insulin Code(s): E11.9 - Type 2 diabetes mellitus without complications Status: Acute Assessment and Plan: patient recent hemoglobin A1c is 9.5 will continue current regimen and have peer educator consult the patient DS: Summary Hospital Course Reason for hospitalization: Chief complaint: foot ulcer and osteomylitis Narrative: Chris Handley is a 74 year old male with past medical history of uncontrolled diabetes his recent hemoglobin A1c is 9.5, patient had been seen by wound clinic for diabetic foot and had been treated however patient was seen by his surgeon 03/08 and his wound was getting worse to the point where the bone is exposed and patient was asked to come to emergency department for further evaluation, patient denies any pain, denies any fever or chills, patient states that he has had history of diabetic foot ulcers and seen by wound clinic as well as Dr. Zamora. patient will be seen by surgeon and further recommendation to follow, started on vancomycin. will have wound nurse collect simple for wound culture. patient CRP is elevated will get MRI of the foot to rule out osteomyelitis Hospital Course: Chris Handley is a 74 year old male with past medical history of uncontrolled diabetes his recent hemoglobin A1c is 9.5, patient had been seen by wound clinic for diabetic foot and had been treated however patient was seen by his surgeon 03/08 and his wound was getting worse to the point where the bone is exposed and patient was asked to come to emergency department for further evaluation, patient denies any pain, denies any fever or chills, patient states that he has had history of diabetic foot ulcers and seen by wound clinic as well as Dr. Zamora. patient will be seen by surgeon and further recommendation to follow, started on vancomycin. will have wound nurse collect simple for wound culture. patient CRP is elevated,on 03/09 riki
[2020-03-12 15:21] VITALS: BP 133/51; PULSE 85; RESP 18; TEMP 36.6; O2SAT 98
[2020-03-12 17:07] LABS: Glucose Point of Care 320 (65-105)
[2020-03-12] MEDS: INSULIN ASPART (*BKC) 100 UNITS/ML SUB-Q (17:32)
--- NOTE | 2020-04-01 07:19 | WPDHPUPDATE1 ---
History and Physical Update Update Date/Time: 04/01/20 07:19 History and Physical has been reviewed, including an updated exam of the patient. There are NO changes in the patient's condition. Risks, benefits, and alternatives have been discussed and questions answered. Patient agrees to proceed with procedure.
--- NOTE | 2020-04-01 07:20 | WPDHPUPDATE1 ---
History and Physical Update Update Date/Time: 04/01/20 07:20 History and Physical has been reviewed, including an updated exam of the patient. There are NO changes in the patient's condition. Risks, benefits, and alternatives have been discussed and questions answered. Patient agrees to proceed with procedure.
== END 2020-03-12 18:07 | disposition home health service (06) | DRG 617 ==
LOC: ANHED 19:12 → ANH2MED 03-09 13:14
PROVIDERS: Plastic Surgery; Admitting Provider Internal Medicine; Emergency Provider Emergency Medicine; PCP Physician Assistant; Visit Provider Family Medicine
PROC: 0Y6N0ZF Detachment at Left Foot, Partial 5th Ray, Open Approach (ICD-10-PCS; principal; 2020-03-11 15:30)
DX: E11.69 Type 2 diabetes mellitus with other specified complication (principal); M86.8X7 Other osteomyelitis, ankle and foot; E11.51 Type 2 diabetes mellitus with diabetic peripheral angiopathy without gangrene; E11.621 Type 2 diabetes mellitus with foot ulcer; L97.524 Non-pressure chronic ulcer of other part of left foot with necrosis of bone; E11.628 Type 2 diabetes mellitus with other skin complications; L08.9 Local infection of the skin and subcutaneous tissue, unspecified; E11.65 Type 2 diabetes mellitus with hyperglycemia; E78.5 Hyperlipidemia, unspecified; I10 Essential (primary) hypertension; I25.10 Atherosclerotic heart disease of native coronary artery without angina pectoris; M19.90 Unspecified osteoarthritis, unspecified site; Z79.4 Long term (current) use of insulin; Z89.422 Acquired absence of other left toe(s); Z95.1 Presence of aortocoronary bypass graft
CPT/HCPCS: 36415; 73620; 73718; 80048; 80053; 80202; 83036; 83605; 85025; 85027; 85610; 86140; 87040; 87070; 87147; 87186; 87205; 88305; 88311; 93923; 96374; 99285; A9270; J1815; J2405; J2543; J2704; J2765; J3010; J3370; J3480; J7030; J7120

== ENCOUNTER 2020-03-29 10:30 | Outpatient (CLI) | payer MEDICARE, SELFPAY ==
--- NOTE | 2020-03-29 10:31 | ECG_ITS ---
Measurements Intervals [place] Rate: 87 P: 35 WI: 166 QRS: 32 QRSD: 93 T: 75 QT: 373 QTc: 450 Interpretive Statements SINUS RHYTHM NONSPECIFIC T-WAVE ABNORMALITY- HIGH LATERAL LEADS BORDERLINE ECG Electronically Signed On 03-29-2020 11:18:19 CDT by Elijah Deal D.O.
== END 2020-03-29 10:31 | disposition home or self-care (01) ==
LOC: ANHSURGERY 10:31
PROVIDERS: PCP Physician Assistant; Visit Provider Plastic Surgery
DX: E11.9 Type 2 diabetes mellitus without complications (principal)
CPT/HCPCS: 93005

== ENCOUNTER 2020-03-30 00:27 | Outpatient (CLI) | payer MEDICARE, SELFPAY ==
[2020-03-30 18:54] LABS: SARS-CoV-2 RNA PCR Negative
== END 2020-03-30 00:28 | disposition home or self-care (01) ==
LOC: ANHCOVIDDT 00:29
PROVIDERS: PCP Physician Assistant; Visit Provider Plastic Surgery
DX: Z20.828 Contact with and (suspected) exposure to other viral communicable diseases (principal)
CPT/HCPCS: 87635; C9803; U0003

== ENCOUNTER 2020-04-01 01:33 | Day surgery (SDC) | payer MEDICARE, SELFPAY ==
[2020-03-29 08:15] VITALS: BMI 27.8
[2020-04-01 07:21] VITALS: BP 115/70; PULSE 103; RESP 18; TEMP 36.4; O2SAT 100
[2020-04-01 07:53] LABS: Glucose Point of Care 150 (65-105)
[2020-04-01] MEDS: LACTATED RINGERS 1,000 ML 30 ML IV CONT (07:55)
--- NOTE | 2020-04-01 07:57 | WPDANESEPPF ---
Anes - Initial Pre Proc Eval Procedure: Operation Date: 04/01/20 09:00 Proposed Procedures p Full Thickness Skin Graft From Left Thigh To Left Foot - Jose Cartagena MD Date/Time: 04/01/20 07:57 Surgeon: Jose Cartagena MD Pre Op Diagnosis: open surgical wound, diabetic foot ulcer Patient Data Age: 74 Gender: M Height: 6 ft Weight: 93 kg Allergies Allergy/AdvReac Type Severity Reaction Status Date / Time CRISELDA Inhibitors Allergy Unknown Cough Verified 03/29/20 08:36 Home Medications Medication Instructions Recorded Confirmed Type clopidogrel 75 mg tablet 75 mg PO DAILY #90 tablet 08/29/19 03/29/20 Rx insulin syringe-needle U-100 1 mL #100 each 09/02/19 03/29/20 History 29 gauge x 12/26 cilostazol 100 mg tablet 100 mg PO BID 09/03/19 03/29/20 History doxycycline hyclate 100 mg tablet 100 mg PO BID tablet 09/03/19 03/29/20 History glimepiride 4 mg tablet 4 mg PO BID 09/03/19 03/29/20 History pen needle, diabetic 32 gauge x #100 each 11/12/19 03/29/20 Rx hydrochlorothiazide 25 mg tablet 25 mg PO DAILY #90 tablet 12/22/19 03/29/20 Rx dulaglutide 0.75 mg/0.5 mL 1.5 mg SUB-Q WEEKLY ml 01/08/20 03/29/20 History subcutaneous pen injector Lantus Solostar U-100 Insulin 40 unit SUBCUT HS 03/08/20 03/29/20 History isosorbide mononitrate 60 mg PO DAILY 03/08/20 03/29/20 History lovastatin 40 mg PO HS 03/08/20 03/29/20 History clindamycin HCl 300 mg PO Q8HR #84 cap 03/12/20 03/29/20 Rx silver [Silver-Sept] 1 applic TOPICAL DAILY #60 g 03/12/20 03/29/20 Rx Laboratory Tests 04/01/20 07:51 POC Capillary Glucose 150 mg/dl H mg/dl (65-105) Patient hx anesthesia problems: none Family hx anesthesia problems: none PMFSH Past Medical History Medical History Amputation of toe of left foot Arthritis CAD (coronary artery disease) Diabetes History of amputation of toe Hyperlipidemia Hypertension PVD (peripheral vascular disease) Surgical History Surgical History Hx of coronary artery bypass graft 4 VESSEL 2004, 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 Family History Family History Mother Family history of lung cancer Patient's mother is Father Family history of throat cancer Sibling Heart disease Social History Social History Smoking status: Never smoker Second hand tobacco smoke exposure: No Alcohol intake: never Substance use: never Substance use type: does not use Living arrangements: with family Gender identity (if verbalized by the patient): Male Spiritual care concerns: No Anes - Eval Final PreProcedure Day of Procedure 04/01/20 07:57 Patient weight: overweight Heart: regular rate and rhythm Lungs: clear to auscultation Airway: Mallampati scale class II Neurological: alert and oriented Last oral intake: >/= 8 hours ASA classification: III Emergent: no Anesthetic plan: proceed Anesthesia type and monitoring: general LMA and standard monitoring Informed Consent: The patient's anesthetic plan and its attendant risks and benefits were discussed with the patient/family/POA. Questions were solicited and answers provided to the satisfaction of the patient/family/POA.
[2020-04-01] MEDS: LIDO 1%/EPINEPHRINE 1:100,000 20 ML VIAL INFILTRATE (09:05)
[2020-04-01 10:09] VITALS: BP 128/64; PULSE 87; RESP 12; O2SAT 96
--- NOTE | 2020-04-01 10:12 | SUR.OPER ---
mepilex ag applied to left foot
[2020-04-01 10:35] VITALS: BP 116/53; PULSE 83; RESP 12; O2SAT 97
--- NOTE | 2020-04-01 10:44 | P.OP_ITS ---
Procedure Note - Detailed Date of procedure: 04/01/20 Pre-op diagnosis: open surgical wound, diabetic foot ulcer Post-op diagnosis: same Procedure performed: Full-thickness skin graft 12 sq cm from the left thigh to the left lateral foot wound Description of procedure: The left foot wound was marked while the patient was in preop. He was taken to the operating room and placed supine on the operating table. He was given IV sedation. Time-out was held and confirmed. The left lower extremity was prepped and draped in usual fashion. The margins of the left lateral foot wound were infiltrated with 1% lidocaine with epinephrine. [employer] sponges and #15 blade were used to freshen the surface of this wound which was entirely granulated. Measurements were taken and transferred to the left thigh. The donor site was marked and locally infiltrated with 1% lidocaine with epinephrine. Graft was harvested with a 15 blade as a full-thickness specimen. The donor site wound margins were undermined with a Blade and that wound was closed with intradermal 3-0 Vicryl suture and a running intradermal Vicryl suture. Glue was placed over that. The graft was carefully defatted to appropriate thickness and inset with 4-0 running and interrupted sutures; the recipient area was dressed with Mepilex Silver bulky gauze Kerlix roll and Coban wrap. The graft was sutured to the base of the wound. The graft was dressed with Mepilex Silver thick Kerlix sponge and roll and Coban wrap.. The patient has been on clindamycin and doxycycline clinically and was given no additional antibiotics today. No cultures were taken. He is discharged with instructions in wound care and follow-up Surgeon: Jose Cartagena MD
[2020-04-01 11:05] VITALS: PULSE 80; RESP 12; O2SAT 98
== END 2020-04-01 12:15 | disposition home or self-care (01) ==
PROVIDERS: PCP Physician Assistant; Visit Provider Plastic Surgery
PROC: (CPT 15240; principal; 2020-04-01 09:00)
DX: Z48.1 Encounter for planned postprocedural wound closure (principal); E11.621 Type 2 diabetes mellitus with foot ulcer; L97.529 Non-pressure chronic ulcer of other part of left foot with unspecified severity; I25.10 Atherosclerotic heart disease of native coronary artery without angina pectoris; I10 Essential (primary) hypertension; E78.5 Hyperlipidemia, unspecified; E11.51 Type 2 diabetes mellitus with diabetic peripheral angiopathy without gangrene; Z79.02 Long term (current) use of antithrombotics/antiplatelets; Z79.4 Long term (current) use of insulin
CPT/HCPCS: 15240; A9270; J2370; J2405; J2704; J3010; J7120

== ENCOUNTER 2020-05-15 11:25 | Inpatient (IN) | payer MEDICARE, SELFPAY ==
--- NOTE | ~2020-05-15 | US_ITS ---
EXAMINATION: US art doppler w rossy MORGAN DATE: 05/16/2020 13:18 INDICATION: Foot ulcer TECHNIQUE: Segmental pressures and plethysmographic and Doppler waveforms of the brachial and lower e xtremity arteries were obtained. COMPARISON: 03/09/2020 FINDINGS: Right and left brachial artery pressures of 155 mm Hg and 173 mm Hg, respectively, are concordant (no rmal difference <= 30 mmHg). The right and left high-thigh pressure indices are unable to be obtained due to inability to occlude the vessels. The right ankle-brachial index (LIZBETH) is at least 0.42 (normal >= 0.9-1) based upon pressure in the ri ght posterior tibial artery. The right dorsalis pedis artery as well as the remaining arteries in the right lower limb were unable to be occluded. The right great toe-brachial index (TBI) was unable to be obtained due to amputation of the toes (normal >= 0.6-0.8). Arterial waveforms are biphasic with b risk systolic upstrokes at the right common femoral through the right popliteal artery. Monophasic wa veforms with broadened systolic peaks and delayed upstrokes at the right posterior tibial and dorsali s pedis arteries. The left LIZBETH was unable to be obtained due to inability to occlude the vessels throughout the entire left lower limb. The left TBI is unable to be obtained due to amputation of the toes. Arterial wavefo rose marie are biphasic with brisk systolic upstrokes at the left common femoral, superficial femoral and po pliteal arteries. Biphasic waveform with mildly delayed upstrokes at the left posterior tibial artery and monophasic waveforms with brisk systolic peaks and delayed upstrokes at the left dorsalis pedis artery. IMPRESSION: 1. Pressures remain unable to be obtained throughout either lower limb with the exception of the righ t posterior tibial artery which yields a severely decreased right LIZBETH. There are widened systolic pea ks with delayed upstrokes at the bilateral posterior tibial and dorsalis pedis arteries. Reviewed, dictated and finalized at location A. IMPRESSION: 1. Pressures remain unable to be obtained throughout either lower limb with the exception of the right posterior tibial artery which yields a severely decreas ed right LIZBETH. There are widened systolic peaks with delayed upstrokes at the bi lateral posterior tibial and dorsalis pedis arteries.
--- NOTE | ~2020-05-15 | XR_ITS ---
EXAMINATION: XR foot RT min 3V EXAM DATE: 05/15/2020 12:00 INDICATION: Right foot wound, 1st metatarsal region. TECHNIQUE: Right foot dorsoplantar, lateral and oblique projections obtained and reviewed. Compariso n is made to prior examination from 12/21/2015. FINDINGS: There is been interval transmetatarsal amputation. There are no bony erosions identified. No periosteal reaction. There are arterial calcifications, arteriosclerosis. No fracture or other acu te osseous findings. IMPRESSION: 1. Right transmetatarsal amputation. 2. No acute osseous findings. Reviewed, dictated and finalized at location A.
--- NOTE | ~2020-05-15 | MR_ITS ---
EXAMINATION: MR foot RT wo con DATE: 05/16/2020 12:34 INDICATION: Osteomyelitis TECHNIQUE: Magnetic resonance imaging (MRI) of the right fore/mid foot was performed without intraven ous contrast. Sequences included axial, sagittal and coronal T1-weighted FSE and T2-weighted FS FSE. COMPARISON: Right foot radiographs dated 05/15/2020 and right foot MRI dated 04/04/2016 FINDINGS: First-fifth transmetatarsal amputations. There is bandaging material overlying ulceration along the d istal margin of the fifth metatarsal osteotomy. There is marrow edema and loss of T1 fat signal at th e distal aspect of the fifth metatarsal consistent with osteomyelitis. Minimal to mild polyarticular osteoarthritis in the midfoot most prominent at the first tarsal metatarsal joint where there is mild subarticular edema at the base of the first metatarsal and at the medial cuneiform. Marrow signal is otherwise unremarkable throughout the visualized bones with no other lesions suspicious for osteomye litis. No abscess or joint effusions. IMPRESSION: 1. First and fifth transmetatarsal osteotomies with osteomyelitis at the distal aspect of the remaini ng fifth metatarsal. Reviewed, dictated and finalized at location A. IMPRESSION: 1. First and fifth transmetatarsal osteotomies with osteomyelitis at the distal aspect of the remaining fifth metatarsal.
[2020-05-15 11:39] VITALS: BP 141/64; PULSE 110; RESP 18; TEMP 36.9; O2SAT 100
--- NOTE | 2020-05-15 11:47 | ED.GENADULT ---
HPI - General Adult General Chief complaint: Extremity Injury, Lower <LAY Camilo Last Filed: 05/15/20 13:30> Stated complaint: right foot pain <LAY Camilo Last Filed: 05/15/20 13:30> Time Seen by Provider: 05/15/20 11:33 <LAY Camilo Last Filed: 05/15/20 13:30> Source: patient <LAY Camilo Last Filed: 05/15/20 13:30> Mode of arrival: ambulatory <LAY Camilo Last Filed: 05/15/20 13:30> Limitations: no limitations <LAY Camilo Last Filed: 05/15/20 13:30> History of Present Illness HPI narrative: Patient is 74-year-old male who presents with several days duration of wound to the lateral aspect of the right forefoot patient is a diabetic has had similar occurrence in the past patient notes aching pain worse with touch and palpation denies injury or trauma patient is an insulin-dependent diabetic is currently not on antibiotics <LAY Camilo Last Filed: 05/15/20 13:30> Related Data Home medications: Home Medications Medication Instructions Recorded Confirmed cilostazol 100 mg tablet 100 mg PO BID 09/03/19 04/01/20 glimepiride 4 mg tablet 4 mg PO BID 09/03/19 04/01/20 dulaglutide 0.75 mg/0.5 mL 1.5 mg SUB-Q WEEKLY ml 01/08/20 04/01/20 subcutaneous pen injector Lantus Solostar U-100 Insulin 40 unit SUBCUT 03/08/20 04/01/20 isosorbide mononitrate 60 mg PO DAILY 03/08/20 04/01/20 lovastatin 40 mg PO HS 03/08/20 04/01/20 <LAY Camilo Last Filed: 05/15/20 13:30> Allergies/adverse reactions: Allergies Allergy/AdvReac Type Severity Reaction Status Date / Time CRISELDA Inhibitors Allergy Unknown Cough Verified 05/15/20 13:27 <LAY Camilo Last Filed: 05/15/20 13:30> Review of Systems Review of Systems: All systems reviewed & are unremarkable except as noted in HPI and below <Yaw Chase PA-C - Last Filed: 05/15/20 13:30> [facility] Past Medical History Medical History: Medical History Amputation of toe of left foot Arthritis CAD (coronary artery disease) Diabetes History of amputation of toe Hyperlipidemia Hypertension PVD (peripheral vascular disease) <Yaw Chase PA-C - Last Filed: 05/15/20 13:30> Surgical History Surgical History: Surgical History Hx of coronary artery bypass graft 4 VESSEL 2004, 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 HEAD: Normocephalic, atraumatic. EYES: PERRLA and EOMI. ENT: Nares clear, no rhinorrhea or epistaxis. Mucous membranes moist. CHEST: Clear to auscultation. No respiratory distress. No wheezes rales or rhonchi HEART: Regular rate and rhythm. No murmur heard. EXTREMITIES: Normal range of motion. No edema. SKIN: Warm, dry, no rash. 2 cm in diameter tender swollen blister to the lateral right forefoot with overriding callus with surrounding cellulitis NEURO: No focal deficits. Alert and oriented x3. Neurovascularly intact PSYCH: Normal mood and affect. <LAY Camilo Last Filed: 05/15/20 13:30> Course Course Emergency Course: Patient in the room in no distress was given IV antibiotics had his wound I&D and will be placed in hospital with plastic surgery consult to the hospitalist service <Yaw Chase PA-C - Last Tay
[2020-05-15 11:58] LABS: Basophils Absolute Auto 0.1 K/mm3 (0.0-0.1); Basophils Percent Auto 0.5 % (0.2-1.2); Eosinophils Absolute Auto 0.1 K/mm3 (0-0.3); Eosinophils Percent Auto 0.5 % (0-4.4); Hematocrit 40.7 % (42.0-52.0); Immature Granulocyte Absolute 0.05 K/mm3 (0.00-0.031); Immature Granulocyte Percent A 0.5 % (0-0.5); Lymphocytes Absolute Auto 1.72 K/mm3 (0.9-3.2); Lymphocytes Percent Auto 16.8 % (18.3-44.2); Mean Corpuscular HGB Conc 34.4 g/dl (32-36); Mean Corpuscular Hemoglobin 30.2 pg (26-34); Mean Corpuscular Volume 87.9 fl (80-100); Mean Platelet Volume 10.8 fl (7.4-10.4); Monocytes Absolute Auto 1.1 K/mm3 (0.1-0.6); Monocytes Percent Auto 10.6 % (2.6-8.5); Neutrophils Absolute Auto 7.3 K/mm3 (1.3-6.7); Neutrophils Percent Auto 71.1 % (45.5-73.1); Platelet Count Result 308 k/mm3 (150-375); Red Blood Count 4.63 M/mm3 (4.6-6.20); Red Cell Distribution Width 13.6 % (11.5-14.5); White Blood Count 10.3 K/mm3 (4.5-10.0)
[2020-05-15 12:17] LABS: Anion Gap 10 mmol/L (8-16); Blood Urea Nitrogen 29 mg/dL (9-20); CRP 5.3 mg/dL (<1.0); Carbon Dioxide 26 mmol/L (22-30); Chloride 99 mmol/L (98-107); Estimated Glomerular Filt Rate 43; Glucose 271 mg/dL (75-110); Potassium 3.1 mmol/L (3.4-5.0); Sodium 135 mmol/L (137-145)
[2020-05-15] MEDS: SODIUM CHLORIDE 0.9% IV 1,000 ML 999 ML IV CONT (12:34)
[2020-05-15 13:02] VITALS: BP 142/84; PULSE 80; RESP 16; O2SAT 97
[2020-05-15 15:20] VITALS: BP 143/70; PULSE 98; RESP 20; TEMP 36.8; O2SAT 98
--- NOTE | 2020-05-15 15:59 | PC.NURSE ---
This patient, Chris Handley, was admitted to [facility] Surg Room 311-01. Patient/family oriented to hospital policies and general routines including ID bracelet, bed and alarms, visiting hours, pain management, procedures, bathroom and other care routines, personal items, smoking policy, room service/diet, and visiting hours. Valuables list has been completed. Information on how to activate the Rapid Response Team has been discussed. Patient/Family are encouraged to report perceived risks to care and to ask questions if they do not understand what they are told or what they should do.
[2020-05-15 16:00] VITALS: PULSE 98; RESP 20; O2SAT 98
[2020-05-15] MEDS: LACTATED RINGERS 1,000 ML 75 ML IV CONT (16:14)
[2020-05-15 17:13] LABS: Glucose Point of Care 244 (65-105)
[2020-05-15] MEDS: INSULIN ASPART (*BKC) 100 UNITS/ML SUB-Q (17:45)
--- NOTE | 2020-05-15 18:00 | PM.IMHP ---
H&P: HPI History of Present Illness Date/Time: 05/15/20 18:00 Chief complaint: Right foot wound. Narrative: Chris Handley is a pleasant 74-year-old male with insulin-dependent type 2 diabetes mellitus with history of osteomyelitis and diabetic foot ulcers, coronary artery disease, peripheral arterial disease, hypertension, and chronic anemia presented to the emergency department earlier today via private vehicle from home for evaluation of a right foot wound. He has had a callus at the lateral aspect of the right forefoot for quite some time, and it began hurting over the last several days. He describes a burning pain, mainly with weight-bearing, and he thought it would be best to have it checked out. In the emergency department he was found to have a 2 cm blister like area which was incised and drained, with expression of purulence drainage which was washed out. At the time my evaluation he has no complaints and is having no pain or discomfort. He also denies fever, chills, sweats, nausea, vomiting, edema, and erythema of the right foot and leg. Review of Systems Review of Systems: Narrative: Twelve systems were reviewed with pertinent positives and negatives as per HPI. No recent cold or flu symptoms. No recent travel or sick contacts. He admits that his diabetes is not always well controlled with recent A1c of around 9%. His fasting glucose is usually between 80 and 120 but random sugars throughout the day can get into the high 100s. He does suffer from peripheral neuropathy but does have some feeling in his feet as evidence by the discomfort he was having today. No blurry vision, polydipsia, or polyuria. Except as documented, all other systems were reviewed and are negative. [facility] Past Medical History Medical History (Updated 05/15/20 @ 22:26 by Shabnam Fernandez PA-C) Anemia Arthritis Chronic kidney disease, stage 3 Baseline creatinine as 1.3 and 1.60. Coronary artery disease Status post CABG in 2005. History of amputation of toe Hyperlipidemia Hypertension Insulin dependent diabetes mellitus Complicated by peripheral neuropathy and neuropathy. MSSA bacteremia (~10/2018) Secondary to left 1st toe infection. Osteomyelitis Requiring amputation of all toes on the right foot over time as well as left 1st toe amputation. Peripheral arterial disease Status post right lower extremity balloon angioplasty. Surgical History Surgical History (Updated 05/15/20 @ 22:19 by Shabnam Fernandez PA-C) Amputation toe :Transmetatarsal amputations of all toes on the right foot, some requiring further debridement with split-thickness graft per Dr. Cartagena. :Trans phalangeal amputation of the left 1st toe to the proximal phalanges. History of coronary artery bypass graft (~2004) 4 vessel bypass. History of fusion of cervical spine History of vascular surgery (~12/2015) Right lower extremity angioplasty. Status post debridement Multiple debridements of diabetic foot infections on both feet over the years per Dr. Cartagena, several requiring skin grafts. Family History Family History Mother Family history of lung cancer Patient's mother is Father Family history of throat cancer Sibling Heart disease Social History Social History (Updated 05/15/20 @ 22:20 by Shabnam Fernandez PA-C) Social History: Surrogate decision maker: Katharina Paez, spouse. Code status: Full code. Smoking status: Never smoker Second hand tobacco smoke exposure: No Alcohol intake: former Substance use: never Substance use type: does not use Additional living arrangements comments: Lives with his spouse in [place]. 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 Sexual Orientation (if Verbalized by the Patient): Straight or Heterosexual Spiritual care concerns: No Me
[2020-05-15] MEDS: FAMOTIDINE 20 MG/2 ML VIAL IV PUSH (21:25)
[2020-05-15 21:59] LABS: Glucose Point of Care 252 (65-105)
[2020-05-15 22:00] VITALS: BP 138/66; PULSE 85; RESP 18; TEMP 36.6; O2SAT 96
[2020-05-15] MEDS: POTASSIUM CHLORIDE 20 MEQ PACKET (FOR LIQUID) PO (23:11)
[2020-05-16 06:00] VITALS: BP 153/70; PULSE 84; RESP 16; TEMP 36.7; O2SAT 97
[2020-05-16 06:15] LABS: Basophils Percent Auto 0.6 % (0.2-1.2); Eosinophils Absolute Auto 0.1 K/mm3 (0-0.3); Eosinophils Percent Auto 1.4 % (0-4.4); Hemoglobin 11.9 g/dL (14.0-18.0); Immature Granulocyte Absolute 0.03 K/mm3 (0.00-0.031); Immature Granulocyte Percent A 0.4 % (0-0.5); Lymphocytes Absolute Auto 1.55 K/mm3 (0.9-3.2); Lymphocytes Percent Auto 21.9 % (18.3-44.2); Mean Corpuscular Hemoglobin 29.5 pg (26-34); Mean Corpuscular Volume 86.6 fl (80-100); Mean Platelet Volume 10.8 fl (7.4-10.4); Neutrophils Absolute Auto 4.4 K/mm3 (1.3-6.7); Neutrophils Percent Auto 61.7 % (45.5-73.1); Platelet Count Result 274 k/mm3 (150-375); Red Blood Count 4.04 M/mm3 (4.6-6.20); Red Cell Distribution Width 13.2 % (11.5-14.5); White Blood Count 7.1 K/mm3 (4.5-10.0)
[2020-05-16 06:24] LABS: Anion Gap 5 mmol/L (8-16); Blood Urea Nitrogen 19 mg/dL (9-20); Calcium 8.4 mg/dL (8.4-10.2); Carbon Dioxide 29 mmol/L (22-30); Chloride 104 mmol/L (98-107); Estimated CRCL calculation 50 ml/min; Estimated Glomerular Filt Rate 54; Glucose 137 mg/dL (75-110); Magnesium 2.2 mg/dL (1.6-2.3); Potassium 3.1 mmol/L (3.4-5.0); Sodium 138 mmol/L (137-145)
[2020-05-16 06:32] LABS: Hemoglobin A1C 9.5 % (<5.7)
[2020-05-16 08:36] LABS: Glucose Point of Care 151 (65-105)
[2020-05-16] MEDS: POTASSIUM CHLORIDE 20 MEQ TABLET 40 MEQ PO (08:54)
[2020-05-16] MEDS: ISOSORBIDE MONONITRATE 60 MG TAB.ER.24H PO (08:54)
[2020-05-16] MEDS: hydroCHLOROthiazide 25 MG TABLET PO (08:54)
[2020-05-16] MEDS: CLOPIDOGREL BISULFATE 75 MG TABLET PO (10:29)
[2020-05-16] MEDS: cilostazoL 100 MG TABLET PO ×2 (10:29→17:47)
--- NOTE | 2020-05-16 10:29 | WPDCN ---
Assessment and Plan Assessment and plan (1) Diabetic infection of right foot: Code(s): E11.628 - Type 2 diabetes mellitus with other skin complications; L08.9 - Local infection of the skin and subcutaneous tissue, unspecified Status: Acute Assessment and Plan: Poorly controlled diabetes with renal cardiac, neurologic and vascular complications. 1. MRI of right foot. 2. Silvergel dressing. 3. Will plan revision of the metatarsals as indicated by MRI HPI Data of Consult Date/Time: 05/16/20 10:29 Requesting Physician: Romi Luo PA-C Primary Care Provider: Vick Segura PA-C Consult Narrative Narrative: Chris Handley is a 74 year old male with diabetes mellitus poorly controlled, at least during the past year where Hb a1 c is recorded. He is admitted with an abscess that developed beneath a callous on the distal lateral foot. All toes have been previously removed from both feet by tans metatarsal amputation. Pus was drained in the ED. Cultures have been sent and antibiotics have been started. Plain X-ray showed no bone erosion or other signs of osteomyelitis. WBC is 7.1 today after 10.3 on admission yesterday. Had been a patient of Dr Osullivan and is now awaiting his first appoint with a new [employer] Loader this month. Review of Systems Review of Systems: All systems reviewed & are unremarkable except as noted in HPI and below PMFSH Past Medical History Medical History (Updated 05/16/20 @ 10:51 by Jose Cartagena MD) Anemia Arthritis Chronic kidney disease, stage 3 Baseline creatinine as 1.3 and 1.60. Coronary artery disease Status post CABG in 2005. Diabetic infection of right foot History of amputation of toe Hyperlipidemia Hypertension Insulin dependent diabetes mellitus Complicated by peripheral neuropathy and neuropathy. MSSA bacteremia (~10/2018) Secondary to left 1st toe infection. Osteomyelitis Requiring amputation of all toes on the right foot over time as well as left 1st toe amputation. Peripheral arterial disease Status post right lower extremity balloon angioplasty. Surgical History Surgical History (Updated 05/16/20 @ 10:44 by Jose Cartagena MD) Amputation toe :Transmetatarsal amputations of all toes on the right foot, some requiring further debridement with split-thickness graft per Dr. Cartagena. :Trans phalangeal amputation of the left 1st toe to the proximal phalanges. History of coronary artery bypass graft (~2004) 4 vessel bypass. 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 Status post debridement Multiple debridements of diabetic foot infections on both feet over the years per Dr. Cartagena, several requiring skin grafts. Family History Family History Mother Family history of lung cancer Patient's mother is Father Family history of throat cancer Sibling Heart disease Social History Social History (Updated 05/15/20 @ 22:20 by Shabnam Fernandez PA-C) Social History: Surrogate decision maker: Katharina Paez, spouse. Code status: Full code. Smoking status: Never smoker Second hand tobacco smoke exposure: No Alcohol intake: former Substance use: never Substance use type: does not use Additional living arrangements comments: Lives with his spouse in [place]. 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 Sexual Orientation (if Verbalized by the Patient): Straight or Heterosexual Spiritual care concerns: No Meds Home Medications and Allergies Home Medications Medication Instructions Recorded Confirmed Type clopidogrel 75 mg tablet 75 mg PO DAILY #90 tablet 08/29/19 05/15/20 Rx cilostaz
--- NOTE | 2020-05-16 12:25 | PM.IMPN ---
Progress Note: A&P Assessment and Plan (1) Diabetic infection of right foot: Code(s): E11.628 - Type 2 diabetes mellitus with other skin complications; L08.9 - Local infection of the skin and subcutaneous tissue, unspecified Status: Acute Assessment and Plan: -----patient has a history of osteomyelitis and notice this new wound earlier this week. He has poorly controlled diabetes and his last A1c was 9.5. He plans to see an foreign exchange trader next month and says he follows a diabetic diet. For now will continue vancomycin and Zosyn. MRI has been ordered. Local wound care should be continued. No signs of systemic infection. Wound culture Gram stain showing white blood cells and many gram-positive cocci (2) Insulin dependent diabetes mellitus: Status: Acute Assessment and Plan: -----last glucose 238. A1c is 9.5. Patient has plans follow-up with an outpatient foreign exchange trader. Continue sliding scale insulin at this time (3) Chronic kidney disease, stage 3: Code(s): N18.30 - Chronic kidney disease, stage 3 unspecified Status: Acute Assessment and Plan: -----last creatinine 1.3 and GFR 54. Monitor (4) Peripheral arterial disease: Code(s): I73.9 - Peripheral vascular disease, unspecified Status: Acute Assessment and Plan: -----continue Plavix and Pletal (5) Hypertension: Qualifiers: Hypertension type: essential hypertension Qualified Code(s): I10 - Essential (primary) hypertension Code(s): I10 - Essential (primary) hypertension Status: Acute Assessment and Plan: -----last blood pressure 153/70. Continue hydrochlorothiazide and Imdur (6) Hyperlipidemia: Qualifiers: Hyperlipidemia type: unspecified Qualified Code(s): E78.5 - Hyperlipidemia, unspecified Code(s): E78.5 - Hyperlipidemia, unspecified Status: Acute Assessment and Plan: -----continue lovastatin (7) Hypokalemia: Code(s): E87.6 - Hypokalemia Status: Acute Assessment and Plan: -----replaced again today. Monitor daily labs (8) Cellulitis of right foot: Code(s): L03.115 - Cellulitis of right lower limb Status: Acute Assessment and Plan: -----see above Time Spent With Patient Time with patient: 25 - 35 minutes Subjective Date/time seen: 05/16/20 12:25 Interval history: Pt is a 74-year-old male here for diabetic foot wound. Patient was seen today and states his pain is more under controlled. He is unsure if it looks any better because he never really look done it before. Pt denies nausea, vomiting, fevers, chills, constipation, diarrhea, chest pain, sob, or abdominal pain. Review of Systems Review of Systems: All systems reviewed & are unremarkable except as noted in HPI and below Exam Narrative: Exam Narrative: General: Well developed well nourished patient in NAD HEENT: normocephalic Neck: supple Neuro: Alert and oriented x4 CV:RRR Resp:CTA Abd: Soft, non distended. No pain to palpation. Positive bowel sounds Extremities: Right foot has a 1 cm wound with slight serous drainage. No erythema Objective Data Vital Signs Vital Signs: Vital Signs - 24 hr 05/15/20 13:02 05/15/20 15:20 05/15/20 16:00 Temperature 98.2 F Pulse Rate 80 98 98 Respiratory Rate 16 20 20 Blood Pressure 142/84 H 143/70 H Pulse Oximetry 97 98 98 05/15/20 22:00 05/16/20 06:00 Temperature 97.9 F 98.1 F Pulse Rate 85 84 Respiratory Rate 18 16 Blood Pressure 138/66 153/70 H Pulse Oximetry 96 97 Intake/Output Intake/Output: Intake & Output 05/13/20 05/14/20 05/15/20 05/16/20 23:59 23:59 23:59 23:59 Intake Total 1670 400 Balance 1670 400 Meds/Results Medications: Active Medications Generic Name Dose Route Start Last Admin Trade Name Freq PRN Reason Stop Dose Admin Acetaminophen 650 mg 05/16/20 07:29 Tylenol Table
[2020-05-16] MEDS: INSULIN ASPART (*BKC) 100 UNITS/ML SUB-Q ×2 (13:41→17:46)
[2020-05-16 13:52] LABS: Glucose Point of Care 238 (65-105)
[2020-05-16 14:00] VITALS: BP 141/64; PULSE 81; RESP 16; TEMP 36.4; O2SAT 98
[2020-05-16] MEDS: SILVERGEL (ELTA) 45 ML 1 APPLIC TOPICAL (14:38)
[2020-05-16 17:40] LABS: Glucose Point of Care 230 (65-105)
[2020-05-16] MEDS: INSULIN GLARGINE (*BKC) 100 UNITS/ML 20 UNITS SUB-Q (20:17)
[2020-05-16] MEDS: HYDROcodone/acetaminophen (*CRX) 5-325 MG TABLET 1 TAB PO (20:18)
[2020-05-16] MEDS: LOVASTATIN 20 MG TABLET 40 MG PO (20:19)
[2020-05-16 21:52] LABS: Glucose Point of Care 277 (65-105)
[2020-05-16 22:00] VITALS: BP 125/56; PULSE 90; RESP 16; TEMP 36.9; O2SAT 98; BMI 26.8
[2020-05-17 06:00] VITALS: BP 135/70; PULSE 96; RESP 16; TEMP 36.9; O2SAT 100
[2020-05-17 06:14] LABS: Basophils Absolute Auto 0.1 K/mm3 (0.0-0.1); Basophils Percent Auto 0.8 % (0.2-1.2); Eosinophils Absolute Auto 0.1 K/mm3 (0-0.3); Eosinophils Percent Auto 2.3 % (0-4.4); Hematocrit 35.7 % (42.0-52.0); Hemoglobin 12.1 g/dL (14.0-18.0); Immature Granulocyte Absolute 0.02 K/mm3 (0.00-0.031); Immature Granulocyte Percent A 0.3 % (0-0.5); Lymphocytes Absolute Auto 1.98 K/mm3 (0.9-3.2); Lymphocytes Percent Auto 31.8 % (18.3-44.2); Mean Corpuscular HGB Conc 33.9 g/dl (32-36); Mean Corpuscular Hemoglobin 30.1 pg (26-34); Mean Corpuscular Volume 88.8 fl (80-100); Mean Platelet Volume 10.7 fl (7.4-10.4); Monocytes Percent Auto 16.4 % (2.6-8.5); Neutrophils Percent Auto 48.4 % (45.5-73.1); Platelet Count Result 276 k/mm3 (150-375); Red Blood Count 4.02 M/mm3 (4.6-6.20); Red Cell Distribution Width 13.3 % (11.5-14.5); White Blood Count 6.2 K/mm3 (4.5-10.0)
[2020-05-17 06:25] LABS: Anion Gap 6 mmol/L (8-16); Blood Urea Nitrogen 16 mg/dL (9-20); CRP 3.9 mg/dL (<1.0); Calcium 8.7 mg/dL (8.4-10.2); Carbon Dioxide 30 mmol/L (22-30); Chloride 101 mmol/L (98-107); Estimated CRCL calculation 50 ml/min; Estimated Glomerular Filt Rate 54; Glucose 231 mg/dL (75-110); Potassium 3.3 mmol/L (3.4-5.0); Sodium 137 mmol/L (137-145)
[2020-05-17] MEDS: cilostazoL 100 MG TABLET PO ×2 (06:57→15:44)
[2020-05-17 08:00] VITALS: PULSE 96; RESP 16; O2SAT 100
[2020-05-17 08:52] LABS: Glucose Point of Care 196 (65-105)
--- NOTE | 2020-05-17 09:36 | PM.IMPN ---
Progress Note: A&P Assessment and Plan (1) Osteomyelitis: Code(s): M86.9 - Osteomyelitis, unspecified Status: Acute Assessment and Plan: -----MRI confirms osteomyelitis. Will continue Vanc and imipenem at this time and await Dr. Gibbons additional recommendations. Likely will need debridement of this area. Consider ID consult if not. WBC WNL and pt feeling well. No signs of systemic infection. Wound culture growing staphlococcus aureus. Continue local wound care and glucose control. Last plavix dose 05/16/20 (2) Diabetic infection of right foot: Code(s): E11.628 - Type 2 diabetes mellitus with other skin complications; L08.9 - Local infection of the skin and subcutaneous tissue, unspecified Status: Acute Assessment and Plan: -----as above (3) Insulin dependent diabetes mellitus: Status: Acute Assessment and Plan: -----last glucose 196. A1c is 9.5. Patient has plans follow-up with an outpatient wood heel finisher. Continue sliding scale insulin at this time. I have started lantus 20u at night (takes 40 at home) and will increase this as needed. This is not to be given if NPO at midnight. I also started amaryl at 2mg (takes 4mg at home). Can titrate this up as needed as well. (4) Chronic kidney disease, stage 3: Code(s): N18.30 - Chronic kidney disease, stage 3 unspecified Status: Acute Assessment and Plan: -----last creatinine 1.3 and GFR 54. Monitor (5) Peripheral arterial disease: Code(s): I73.9 - Peripheral vascular disease, unspecified Status: Acute Assessment and Plan: -----continue pletal, plavix on hold. (6) Hypertension: Qualifiers: Hypertension type: essential hypertension Qualified Code(s): I10 - Essential (primary) hypertension Code(s): I10 - Essential (primary) hypertension Status: Acute Assessment and Plan: -----last blood pressure 135/70. Continue hydrochlorothiazide and Imdur (7) Hyperlipidemia: Qualifiers: Hyperlipidemia type: unspecified Qualified Code(s): E78.5 - Hyperlipidemia, unspecified Code(s): E78.5 - Hyperlipidemia, unspecified Status: Acute Assessment and Plan: -----continue lovastatin (8) Hypokalemia: Code(s): E87.6 - Hypokalemia Status: Acute Assessment and Plan: -----replaced again today. Monitor daily labs (9) Cellulitis of right foot: Code(s): L03.115 - Cellulitis of right lower limb Status: Acute Assessment and Plan: -----see above Subjective Date/time seen: 05/17/20 09:36 Interval history: Pt is a 74-year-old male here for osteomyelitis. Patient was seen today and states his pain is more under controlled. He is unsure if it looks any better because he never really looked at it before. Pt denies nausea, vomiting, fevers, chills, constipation, diarrhea, chest pain, sob, or abdominal pain. Eating and drinking well Exam Narrative: Exam Narrative: General: Well developed well nourished patient in NAD HEENT: normocephalic Neck: supple Neuro: Alert and oriented x4 CV:RRR Resp:CTA Abd: Soft, non distended. No pain to palpation. Positive bowel sounds Extremities: Right foot has a 1 cm wound with slight serous drainage. No erythema Objective Data Vital Signs Vital Signs: Vital Signs - 24 hr 05/16/20 14:00 05/16/20 22:00 05/17/20 06:00 Temperature 97.6 F 98.4 F 98.4 F Pulse Rate 81 90 96 Respiratory Rate 16 16 16 Blood Pressure 141/64 H 125/56 L 135/70 Pulse Oximetry 98 98 100 Intake/Output Intake/Output: Intake & Output 05/14/20 05/15/20 05/16/20 05/17/20 23:59 23:59 23:59 23:59 Intake Total 0 1969 340 Balance 1670 1969 340 Meds/Results Medications: Active Medications Generic Name Dose Route Start Last Admin Trade Name Freq PRN Reason Stop Dose Admin Acetaminophen 650 mg 05/16/20 07:29 Tylenol T
[2020-05-17] MEDS: hydroCHLOROthiazide 25 MG TABLET PO (09:54)
[2020-05-17] MEDS: GLIMEPIRIDE 2 MG TABLET PO (09:54)
[2020-05-17] MEDS: ISOSORBIDE MONONITRATE 60 MG TAB.ER.24H PO (09:54)
[2020-05-17] MEDS: POTASSIUM CHLORIDE 20 MEQ TABLET 40 MEQ PO (09:59)
--- NOTE | 2020-05-17 11:57 | PC.NURSE ---
Notified Romi CARPENTER of preliminary right foot culture results.
--- NOTE | 2020-05-17 12:38 | WPDPN ---
Progress Note: A&P Assessment and Plan (1) Osteomyelitis: Code(s): M86.9 - Osteomyelitis, unspecified Status: Acute (2) Diabetic infection of right foot: Code(s): E11.628 - Type 2 diabetes mellitus with other skin complications; L08.9 - Local infection of the skin and subcutaneous tissue, unspecified Status: Acute Assessment and Plan: 1. Continue IV Vanco and imipenem. 2 Continue Silvergel. 3. Will schedule 5th metatarsal amputation on Sunday. (3) Insulin dependent diabetes mellitus: Status: Acute (4) Chronic kidney disease, stage 3: Code(s): N18.30 - Chronic kidney disease, stage 3 unspecified Status: Acute (5) Peripheral arterial disease: Code(s): I73.9 - Peripheral vascular disease, unspecified Status: Acute (6) Hypertension: Qualifiers: Hypertension type: essential hypertension Qualified Code(s): I10 - Essential (primary) hypertension Code(s): I10 - Essential (primary) hypertension Status: Acute (7) Hyperlipidemia: Qualifiers: Hyperlipidemia type: unspecified Qualified Code(s): E78.5 - Hyperlipidemia, unspecified Code(s): E78.5 - Hyperlipidemia, unspecified Status: Acute (8) Hypokalemia: Code(s): E87.6 - Hypokalemia Status: Acute (9) Cellulitis of right foot: Code(s): L03.115 - Cellulitis of right lower limb Status: Acute Objective Data Vital Signs Vital Signs: Vital Signs - 24 hr 05/16/20 14:00 05/16/20 22:00 05/17/20 06:00 Temperature 36.4 C 36.9 C 36.9 C Pulse Rate 81 90 96 Respiratory Rate 16 16 16 Blood Pressure 141/64 H 125/56 L 135/70 Pulse Oximetry 98 98 100 Intake/Output Intake/Output: Intake & Output 05/14/20 05/15/20 05/16/20 05/17/20 23:59 23:59 23:59 23:59 Intake Total 1669 1969 340 Balance 1669 1969 340 Meds/Results Medications: Active Medications Generic Name Dose Route Start Last Admin Trade Name Freq PRN Reason Stop Dose Admin Acetaminophen 650 mg 05/16/20 07:29 Tylenol Tablet PO Q6H PRN Mild Pain (1-5) Or Fever Hydrocodone Bitart/Acetaminophen 1 tab 05/16/20 07:29 05/16/20 20:18 [place] 5-325 Mg PO 1 tab Q6H PRN Administration Pain Rated 6-10 Cilostazol 100 mg 05/16/20 07:35 05/17/20 06:57 Pletal PO 100 mg BIDAC KAYLI Administration Clopidogrel Bisulfate 75 mg 05/16/20 09:00 05/17/20 09:59 Plavix PO Not Given DAILY KAYLI Dextrose 12.5 gm 05/15/20 22:26 Dextrose 50% Syringe IV PUSH PRN PRN Hypoglycemia Protocol Glimepiride 2 mg 05/17/20 08:00 05/17/20 09:54 Amaryl PO 2 mg DAILY@0800 KAYLI Administration Glucagon 1 mg 05/15/20 22:26 Glucagon For Inj IM PRN PRN Hypoglycemia Protocol Glucose 15 gm 05/15/20 22:26 Glutose 15 PO PRN PRN Hypoglycemia Protocol Hydrochlorothiazide 25 mg 05/16/20 09:00 05/17/20 09:54 Hydrochlorothiazide PO 25 mg DAILY KAYLI Administration Imipenem/Cilastatin Sodium 500 mg in 100 mls @ 300 mls/hr 05/15/20 22:00 05/17/20 06:45 Primaxin 500 Mg/D5w 100 Ml IVPB Infused Q8H KAYLI Infusion Vancomycin HCl 1,250 mg in 250 mls @ 200 mls/hr 05/16/20 09:00 05/17/20 03:04 Vancomycin 1,250 Mg/D5w 250 Ml IVPB 200 mls/hr Q18H KAYLI Administration Dextrose 1,000 mls @ 100 mls/hr 05/15/20 22:26 Dextrose 5% 1,000 Ml IVPB PRN PRN Hypoglycemia Protocol Insulin Aspart 3 - 6 units 05/16/20 08:00 05/17/20 09:54 Novolog SUB-Q Not Given TIDWM KAYLI Protocol Insulin Glargine 20 units 05/16/20 21:00 05/16/20 20:17 Lantus SUB-Q 20 units HS KAYLI Administration Isosorbide Mononitrate 60 mg 05/16/20 09:00 05/17/20 09:54 Imdur PO 60 mg DAILY KAYLI Administration Lovastatin 40 mg 05/16/20 21:00 05/16/20 20:19 Lovastatin PO 40 mg HS KAYLI Administration Ondansetron HCl 4 mg 05/15/20 14:16 Zofran Inj
[2020-05-17 12:51] LABS: Glucose Point of Care 293 (65-105)
[2020-05-17] MEDS: INSULIN ASPART (*BKC) 100 UNITS/ML SUB-Q ×2 (13:36→18:21)
[2020-05-17 14:00] VITALS: BP 97/62; PULSE 86; RESP 16; TEMP 36.6; O2SAT 97
[2020-05-17] MEDS: SILVERGEL (ELTA) 45 ML 1 APPLIC TOPICAL (16:24)
[2020-05-17 17:51] LABS: Glucose Point of Care 313 (65-105)
[2020-05-17] MEDS: INSULIN GLARGINE (*BKC) 100 UNITS/ML 20 UNITS SUB-Q (20:11)
[2020-05-17] MEDS: LOVASTATIN 20 MG TABLET 40 MG PO (20:11)
[2020-05-17 20:33] LABS: Glucose Point of Care 330 (65-105)
[2020-05-17 20:35] LABS: Vancomycin Trough 11.2 ug/mL (10.0-20.0)
[2020-05-17 22:00] VITALS: BP 108/62; PULSE 91; RESP 16; TEMP 37; O2SAT 98
[2020-05-17] MEDS: HYDROcodone/acetaminophen (*CRX) 5-325 MG TABLET 1 TAB PO (22:11)
[2020-05-18 06:00] VITALS: BP 142/67; PULSE 79; RESP 16; TEMP 36.4; O2SAT 98
[2020-05-18 06:09] LABS: Hematocrit 34.6 % (42.0-52.0); Mean Corpuscular HGB Conc 34.7 g/dl (32-36); Mean Corpuscular Hemoglobin 30.2 pg (26-34); Mean Corpuscular Volume 87.2 fl (80-100); Mean Platelet Volume 10.3 fl (7.4-10.4); Platelet Count Result 292 k/mm3 (150-375); Red Blood Count 3.97 M/mm3 (4.6-6.20); Red Cell Distribution Width 13.1 % (11.5-14.5); White Blood Count 6.6 K/mm3 (4.5-10.0)
[2020-05-18 06:25] LABS: Alanine Aminotransferase 10 U/L (4-50); Albumin Level 3.5 g/dL (3.5-5.1); Alkaline Phosphatase 73 U/L (38-126); Anion Gap 7 mmol/L (8-16); Aspartate Amino Transferase 16 U/L (17-59); Bilirubin,Total 0.4 mg/dL (0.2-1.3); Blood Urea Nitrogen 17 mg/dL (9-20); Calcium 8.7 mg/dL (8.4-10.2); Carbon Dioxide 29 mmol/L (22-30); Chloride 103 mmol/L (98-107); Estimated CRCL calculation 50 ml/min; Estimated Glomerular Filt Rate 54; Glucose 137 mg/dL (75-110); Potassium 3.4 mmol/L (3.4-5.0); Sodium 139 mmol/L (137-145)
[2020-05-18] MEDS: cilostazoL 100 MG TABLET PO ×2 (06:41→16:43)
[2020-05-18 08:17] LABS: Glucose Point of Care 104 (65-105)
[2020-05-18] MEDS: SILVERGEL (ELTA) 45 ML 1 APPLIC TOPICAL (08:29)
[2020-05-18] MEDS: POTASSIUM CHLORIDE 20 MEQ TABLET 40 MEQ PO (08:29)
[2020-05-18] MEDS: GLIMEPIRIDE 2 MG TABLET PO ×2 (08:29→16:43)
[2020-05-18] MEDS: ISOSORBIDE MONONITRATE 60 MG TAB.ER.24H PO (08:29)
[2020-05-18] MEDS: hydroCHLOROthiazide 25 MG TABLET PO (08:29)
--- NOTE | 2020-05-18 10:25 | PM.IMPN ---
Progress Note: A&P Assessment and Plan (1) Osteomyelitis: Code(s): M86.9 - Osteomyelitis, unspecified Status: Acute Assessment and Plan: Patient presents with wound to right 5th metatarsal head; MRI confirmed osteomyelitis. Continue IV vancomycin and imipenem (day 4). Appreciate Dr Cartagena's input - noted his plan for 5th metatarsal amputation tomorrow. Last Plavix dose 05/16/20. (2) Diabetic infection of right foot: Code(s): E11.628 - Type 2 diabetes mellitus with other skin complications; L08.9 - Local infection of the skin and subcutaneous tissue, unspecified Status: Acute Assessment and Plan: See above. (3) Insulin dependent diabetes mellitus: Status: Acute Assessment and Plan: Hgb A1c 9.5. Patient has plans to follow-up with an outpatient beer merchant soon. Blood sugars still elevated. Will increase his Lantus (takes 40 units at home); will increase his glimepiride (takes 4 mg at home). Add mealtime short-acting insulin for now. Aim for tighter glycemic control to optimize wound healing. (4) Chronic kidney disease, stage 3: Code(s): N18.30 - Chronic kidney disease, stage 3 unspecified Status: Acute Assessment and Plan: Cr stable. Monitor renal function. (5) Peripheral arterial disease: Code(s): I73.9 - Peripheral vascular disease, unspecified Status: Acute Assessment and Plan: Continue home cilostazol, plavix on hold for upcoming surgery tomorrow. (6) Hypertension: Qualifiers: Hypertension type: essential hypertension Qualified Code(s): I10 - Essential (primary) hypertension Code(s): I10 - Essential (primary) hypertension Status: Acute Assessment and Plan: Blood pressures reviewed and are variable. Continue hydrochlorothiazide and Imdur. Monitor BP and adjust treatment as needed. (7) Hyperlipidemia: Qualifiers: Hyperlipidemia type: unspecified Qualified Code(s): E78.5 - Hyperlipidemia, unspecified Code(s): E78.5 - Hyperlipidemia, unspecified Status: Acute Assessment and Plan: Continue home statin therapy. (8) Hypokalemia: Code(s): E87.6 - Hypokalemia Status: Acute Assessment and Plan: Potassium 3.4 and replaced orally. Will recheck in AM. (9) Cellulitis of right foot: Code(s): L03.115 - Cellulitis of right lower limb Status: Acute Assessment and Plan: See above. Subjective Date/time seen: 05/18/20 10:20 Interval history: Mr. Handley is a 74yo M admitted for right foot osteomyelitis. He is feeling well this morning. He describes intermittent shooting pain to his right foot, otherwise offers no complaints. Denies chest pain or shortness of breath. Tolerating oral intake without nausea or vomiting. Review of Systems Review of Systems: Narrative: Twelve systems were reviewed with pertinent positives and negatives as per HPI. Exam Narrative: Exam Narrative: General: Male resting supine in bed in no acute distress. HEENT: Normocephalic, EOMI, oral mucosa moist. Cardiovascular: Rate and rhythm are regular. Respiratory: Lungs clear to auscultation in all lopez. Non-labored breathing. Abdomen: Soft, non-tender, non-distended, bowel sounds present. Extremities: Right foot dressing is clean, dry, intact. Transmetatarsal amputations bilaterally. Neuro: No focal neurological deficits. Speech is clear. Objective Data Vital Signs Vital Signs: Vital Signs - 24 hr 05/17/20 14:00 05/17/20 22:00 05/18/20 06:00 Jose
[2020-05-18 11:59] LABS: Glucose Point of Care 287 (65-105)
[2020-05-18] MEDS: INSULIN ASPART (*BKC) 100 UNITS/ML SUB-Q ×3 (12:03→17:19)
[2020-05-18 14:00] VITALS: BP 141/63; PULSE 85; RESP 16; TEMP 36.3; O2SAT 98
[2020-05-18 17:10] LABS: Glucose Point of Care 302 (65-105)
[2020-05-18] MEDS: LOVASTATIN 20 MG TABLET 40 MG PO (20:55)
[2020-05-18 22:00] VITALS: BP 141/59; PULSE 83; RESP 18; TEMP 36.6; O2SAT 94
[2020-05-18] MEDS: HYDROcodone/acetaminophen (*CRX) 5-325 MG TABLET 1 TAB PO (22:30)
[2020-05-19] VITALS (14 sets, daily range): BP systolic 102–175; BP diastolic 54–86; PULSE 70–89; RESP 14–20; TEMP 36.3–37.2; O2SAT 93–100
[2020-05-19 01:13] LABS: Glucose Point of Care 305 (65-105)
--- NOTE | 2020-05-19 05:42 | WPDANESEPP ---
Anes - Eval Pre Procedure Procedure: Operation Date: 05/19/20 07:30 Proposed Procedures p Amputation Right Fifth Metatarsal - Jose Cartagena MD Date/Time: 05/19/20 05:42 Pre Op Diagnosis: Right foot wound, Osteomyelitis Right Foot Patient Data Age: 74 Gender: M Height: 6 ft Weight: 89.7 kg Last Vital Signs Temp 97.8 F 05/18/20 22:00 Pulse 83 05/18/20 22:00 Resp 18 05/18/20 22:00 BP 141/59 H 05/18/20 22:00 Pulse Ox 94 05/18/20 22:00 Allergies Allergy/AdvReac Type Severity Reaction Status Date / Time CRISELDA Inhibitors Allergy Unknown Cough Verified 05/15/20 13:27 Home Medications Medication Instructions Recorded Confirmed Type clopidogrel 75 mg tablet 75 mg PO DAILY #90 tablet 08/29/19 05/15/20 Rx cilostazol 100 mg tablet 100 mg PO BID 09/03/19 05/15/20 History glimepiride 4 mg tablet 4 mg PO BID 09/03/19 05/15/20 History hydrochlorothiazide 25 mg tablet 25 mg PO DAILY #90 tablet 12/22/19 05/15/20 Rx dulaglutide 0.75 mg/0.5 mL 1.5 mg SUB-Q WEEKLY ml 01/08/20 05/15/20 History subcutaneous pen injector Lantus Solostar U-100 Insulin 40 unit SUBCUT HS 03/08/20 05/15/20 History isosorbide mononitrate 60 mg PO DAILY 03/08/20 05/15/20 History lovastatin 40 mg PO HS 03/08/20 05/15/20 History silver [Silver-Sept] 1 applic TOPICAL DAILY #60 g 03/12/20 05/15/20 Rx hydrocodone-acetaminophen 1 tablet PO Q4-6H PRN #6 tablet 04/01/20 05/15/20 Rx Laboratory Tests 05/18/20 05/18/20 05/18/20 05:41 05:41 08:14 WBC 6.6 K/mm3 K/mm3 (4.5-10.0) RBC 3.97 M/mm3 L M/mm3 (4.6-6.20) Hgb 12.0 g/dL L g/dL (14.0-18.0) Hct 34.6 % L % (42.0-52.0) MCV 87.2 fl fl (80-100) MCH 30.2 pg pg (26-34) MCHC 34.7 g/dl g/dl (32-36) RDW 13.1 % % (11.5-14.5) Plt Count 292 k/mm3 k/mm3 (150-375) MPV 10.3 fl fl (7.4-10.4) Sodium 139 mmol/L mmol/L (137-145) Potassium 3.4 mmol/L mmol/L (3.4-5.0) Chloride 103 mmol/L mmol/L (98-107) Carbon Dioxide 29 mmol/L mmol/L (22-30) Anion Gap 7 mmol/L L mmol/L (8-16) BUN 17 mg/dL mg/dL (9-20) Creatinine 1.30 mg/dL mg/dL (0.7-1.3) Estim Creat Clear Calc 50 ml/min ml/min Estimated GFR 54 L (59 - ) Glucose 137 mg/dL H mg/dL (75-110) POC Capillary Glucose 104 mg/dl mg/dl (65-105) Calcium 8.7 mg/dL mg/dL (8.4-10.2) Total Bilirubin 0.4 mg/dL mg/dL (0.2-1.3) Direct Bilirubin 0.0 mg/dL mg/dL (0-0.3) AST 16 U/L L U/L (17-59) ALT 10 U/L U/L (4-50) Alkaline Phosphatase 73 U/L U/L (38-126) Total Protein 6.0 g/dL L g/dL (6.3-8.2) Albumin 3.5 g/dL g/dL (3.5-5.1) 05/18/20 05/18/20 05/18/20 11:56 17:08 20:58 WBC RBC Hgb Hct MCV MCH MCHC RDW Plt Count MPV Sodium Potassium Chloride Carbon Dioxide Anion Gap BUN Creatinine Estim Creat Clear Calc Estimated GFR Glucose POC Capillary Glucose 287 mg/dl H mg/dl 302 mg/dl H mg/dl 305 mg/dl H mg/dl (65-105) (65-105) (65-105) Calcium Total Bilirubin Direct Bilirubin AST ALT Alkaline Phosphatase Total Protein Albumin Patient hx anesthesia problems: none Family hx anesthesia problems: none PMFSH Past Medical History Medical History Anemia Arthritis Chronic kidney disease, stage 3 Baseline creatinine as 1.3 and 1.60. Coronary artery disease Status post CABG in 2004. Diabetic infection of right foot History of
[2020-05-19 06:24] LABS: Glucose Point of Care 251 (65-105)
--- NOTE | 2020-05-19 06:45 | WPDANESEFPP ---
Anes - Eval Final PreProcedure Day of Procedure 05/19/20 06:45 Patient weight: overweight Heart: regular rate and rhythm Lungs: clear to auscultation Airway: Mallampati scale class II and special considerations retrognathia Neurological: alert and oriented Last oral intake: >/= 8 hours Emergent: no Anesthetic plan: proceed Anesthesia type and monitoring: general LMA and standard monitoring Informed Consent: The patient's anesthetic plan and its attendant risks and benefits were discussed with the patient/family/POA. Questions were solicited and answers provided to the satisfaction of the patient/family/POA.
[2020-05-19] MEDS: LACTATED RINGERS 1,000 ML 30 ML IV CONT ×2 (06:51→08:45)
--- NOTE | 2020-05-19 07:10 | WPDHPUPDATE1 ---
History and Physical Update Update Date/Time: 05/19/20 07:10 History and Physical has been reviewed, including an updated exam of the patient. There are NO changes in the patient's condition. Risks, benefits, and alternatives have been discussed and questions answered. Patient agrees to proceed with procedure.
--- NOTE | 2020-05-19 07:11 | WPDPN ---
Objective Data Vital Signs Vital Signs: Vital Signs - 24 hr 05/18/20 14:00 05/18/20 22:00 05/19/20 06:00 Temperature 36.3 C L 36.6 C 36.6 C Pulse Rate 85 83 84 Respiratory Rate 16 18 18 Blood Pressure 141/63 H 141/59 H 166/80 H Pulse Oximetry 98 94 99 05/19/20 06:15 Temperature 37.2 C Pulse Rate 84 Respiratory Rate 20 Blood Pressure 175/86 H Pulse Oximetry 99 Intake/Output Intake/Output: Intake & Output 05/16/20 05/17/20 05/18/20 05/19/20 23:59 23:59 23:59 23:59 Intake Total 1969 Output Total 1 Balance 1969 Meds/Results Medications: Active Medications Generic Name Dose Route Start Last Admin Trade Name Freq PRN Reason Stop Dose Admin Acetaminophen 650 mg 05/16/20 07:29 Tylenol Tablet PO Q6H PRN Mild Pain (1-5) Or Fever Hydrocodone Bitart/Acetaminophen 1 tab 05/16/20 07:29 05/18/20 22:30 [place] 5-325 Mg PO 1 tab Q6H PRN Administration Pain Rated 6-10 Cilostazol 100 mg 05/16/20 07:35 05/19/20 05:39 Pletal PO Not Given BIDAC [facility] Clopidogrel Bisulfate 75 mg 05/16/20 09:00 05/17/20 09:59 Plavix PO Not Given DAILY KAYLI Dextrose 12.5 gm 05/15/20 22:26 Dextrose 50% Syringe IV PUSH PRN PRN Hypoglycemia Protocol Fentanyl Citrate 25 mcg 05/19/20 06:46 Sublimaze IV PUSH Q2M PRN Pain Glimepiride 2 mg 05/18/20 17:00 05/18/20 16:43 Amaryl PO 2 mg BIDWM KAYLI Administration Glucagon 1 mg 05/15/20 22:26 Glucagon For Inj IM PRN PRN Hypoglycemia Protocol Glucose 15 gm 05/15/20 22:26 Glutose 15 PO PRN PRN Hypoglycemia Protocol Hydrochlorothiazide 25 mg 05/16/20 09:00 05/18/20 08:29 Hydrochlorothiazide PO 25 mg DAILY KAYLI Administration Imipenem/Cilastatin Sodium 500 mg in 100 mls @ 300 mls/hr 05/15/20 22:00 05/19/20 05:39 Primaxin 500 Mg/D5w 100 Ml IVPB 300 mls/hr Q8H KAYLI Administration Dextrose 1,000 mls @ 100 mls/hr 05/15/20 22:26 Dextrose 5% 1,000 Ml IVPB PRN PRN Hypoglycemia Protocol Vancomycin HCl 1,250 mg in 250 mls @ 200 mls/hr 05/18/20 09:00 05/18/20 22:26 Vancomycin 1,250 Mg/D5w 250 Ml IVPB Infused Q12H KAYLI Infusion Lactated Ringer's 1,000 mls @ 30 mls/hr 05/19/20 06:45 05/19/20 06:51 Lr - Lactated Ringers Iv IV CONT 30 mls/hr .Q24H KAYLI Administration Lactated Ringer's 1,000 mls @ 30 mls/hr 05/19/20 06:50 Lr - Lactated Ringers Iv IV CONT .Q24H KAYLI Insulin Aspart 4 - 8 units 05/18/20 08:00 05/18/20 17:19 Novolog SUB-Q 6 units TIDWM KAYLI Administration Protocol Insulin Aspart 4 units 05/18/20 17:00 05/18/20 17:19 Novolog 0.05 units/kg (4 units) 4 units SUB-Q Administration TIDWM KAYLI Insulin Glargine 30 units 05/18/20 21:00 05/18/20 20:59 Lantus SUB-Q Not Given HS KAYLI Isosorbide Mononitrate 60 mg 05/16/20 09:00 05/18/20 08:29 Imdur PO 60 mg DAILY KAYLI Administration Lovastatin 40 mg 05/16/20 21:00 05/18/20 20:55 Lovastatin PO 40 mg HS KAYLI Administration Ondansetron HCl 4 mg 05/15/20 14:16 Zofran Inj IV PUSH Q4H PRN Nausea Silver Nitrate 1 applic 05/16/20 09:00 05/18/20 08:29 Silvergel TOPICAL 1 applic DAILY KAYLI Administration Radiology Results: ITS Impressions Foot X-Ray 05/15/20 12:04 IMPRESSION: 1. Right transmetatarsal amputation. 2. No acute osseous findings. Doppler Study Ultrasound 05/16/20 14:45 IMPRESSION: 1. Pressures remain unable to be obtained throughout either lower limb with the exception of the right posterior tibial artery which yields a severely decreased right LIZBETH. There are widened systolic peaks with delayed upstrokes at the bilateral posterior tibial and dorsalis pedis arteries. Foot MRI 05/16/20 14:59 IMPRESSION: 1. First and fifth transmetatarsal osteotomies with osteomyelitis at the distal aspect of the
--- NOTE | 2020-05-19 07:38 | PM.OP ---
Procedure Note - Brief Procedure Note - Brief Date of procedure: 05/19/20 Pre-op diagnosis: Right foot wound, Osteomyelitis Right Foot Post-op diagnosis: same Procedure performed: Amputation of right 5th metatarsal. Anesthesia: GLMA Surgeon: Jose Cartagena MD Timers Inspector: Valdez Estimated blood loss (mL): 15 Tourniquet time (min): 10 Drains: No Packing: Yes Pathology: yes Complications: No immediate complications Condition: stable Disposition: PACU
[2020-05-19] MEDS: LIDO 1%/EPINEPHRINE 1:100,000 20 ML VIAL INFILTRATE (08:00)
[2020-05-19 08:17] LABS: Vancomycin Trough 18.3 ug/mL (10.0-20.0)
[2020-05-19 08:29] LABS: Glucose Point of Care 227 (65-105)
[2020-05-19] MEDS: fentaNYL CITRATE INJ (*CRX) 100 MCG/2 ML VIAL 25 MCG IV PUSH ×2 (08:38→08:44)
[2020-05-19] MEDS: ONDANSETRON INJ 4 MG/2 ML VIAL IV PUSH (09:05)
[2020-05-19] MEDS: GLIMEPIRIDE 2 MG TABLET PO ×2 (10:26→17:27)
[2020-05-19] MEDS: ISOSORBIDE MONONITRATE 60 MG TAB.ER.24H PO (10:26)
[2020-05-19] MEDS: hydroCHLOROthiazide 25 MG TABLET PO (10:26)
[2020-05-19] MEDS: INSULIN ASPART (*BKC) 100 UNITS/ML SUB-Q ×5 (10:51→17:26)
[2020-05-19 10:55] LABS: Glucose Point of Care 310 (65-105)
[2020-05-19 11:09] LABS: Basophils Percent Auto 0.5 % (0.2-1.2); Eosinophils Percent Auto 0.3 % (0-4.4); Hematocrit 40.1 % (42.0-52.0); Hemoglobin 13.4 g/dL (14.0-18.0); Immature Granulocyte Absolute 0.04 K/mm3 (0.00-0.031); Immature Granulocyte Percent A 0.5 % (0-0.5); Lymphocytes Absolute Auto 0.67 K/mm3 (0.9-3.2); Lymphocytes Percent Auto 9.1 % (18.3-44.2); Mean Corpuscular HGB Conc 33.4 g/dl (32-36); Mean Corpuscular Hemoglobin 30.2 pg (26-34); Mean Corpuscular Volume 90.5 fl (80-100); Mean Platelet Volume 10.5 fl (7.4-10.4); Monocytes Absolute Auto 0.1 K/mm3 (0.1-0.6); Monocytes Percent Auto 1.9 % (2.6-8.5); Neutrophils Absolute Auto 6.5 K/mm3 (1.3-6.7); Neutrophils Percent Auto 87.7 % (45.5-73.1); Platelet Count Result 317 k/mm3 (150-375); Red Blood Count 4.43 M/mm3 (4.6-6.20); Red Cell Distribution Width 13.2 % (11.5-14.5); White Blood Count 7.4 K/mm3 (4.5-10.0)
--- NOTE | 2020-05-19 11:11 | PM.IMPN ---
Progress Note: A&P Assessment and Plan (1) Osteomyelitis: Code(s): M86.9 - Osteomyelitis, unspecified Status: Acute Assessment and Plan: Patient presents with wound to right 5th metatarsal head; MRI confirmed osteomyelitis. Now POD#0 s/p 5th metatarsal amputation by Dr. Cartagena this morning. Treated with 4 days of IV vancomycin and imipenem. Appreciate Dr. Miranda's recommendations - switched to IV ceftriaxone today. Anticipate 2 more days of IV antibiotic therapy per Dr. Miranda's recommendations. (2) Diabetic infection of right foot: Code(s): E11.628 - Type 2 diabetes mellitus with other skin complications; L08.9 - Local infection of the skin and subcutaneous tissue, unspecified Status: Acute Assessment and Plan: See above. (3) Insulin dependent diabetes mellitus: Status: Acute Assessment and Plan: Hgb A1c 9.5. Patient has plans to follow-up with an outpatient drama teacher soon. Blood sugars still elevated. Increase Lantus and mealtime NovoLog. Continue glimepiride. Aim for tighter glycemic control to optimize wound healing. (4) Chronic kidney disease, stage 3: Code(s): N18.30 - Chronic kidney disease, stage 3 unspecified Status: Acute Assessment and Plan: Cr stable 1.2. Monitor renal function. (5) Peripheral arterial disease: Code(s): I73.9 - Peripheral vascular disease, unspecified Status: Acute Assessment and Plan: Continue home cilostazol, plavix held. Resume when okay with Dr Cartagena. (6) Hypertension: Qualifiers: Hypertension type: essential hypertension Qualified Code(s): I10 - Essential (primary) hypertension Code(s): I10 - Essential (primary) hypertension Status: Chronic Assessment and Plan: Blood pressures reviewed and are variable. Continue hydrochlorothiazide and Imdur. Monitor BP and adjust treatment as needed. (7) Hyperlipidemia: Qualifiers: Hyperlipidemia type: unspecified Qualified Code(s): E78.5 - Hyperlipidemia, unspecified Code(s): E78.5 - Hyperlipidemia, unspecified Status: Chronic Assessment and Plan: Continue home statin therapy. (8) Hypokalemia: Code(s): E87.6 - Hypokalemia Status: Resolved Assessment and Plan: Resolved. Potassium is stable today. Will monitor. (9) Cellulitis of right foot: Code(s): L03.115 - Cellulitis of right lower limb Status: Acute Assessment and Plan: See above. Subjective Date/time seen: 05/19/20 1045 Interval history: Mr. Handley is a 74yo M admitted for right foot osteomyelitis. He is seen in follow-up this afternoon s/p right 5th metatarsal amputation by Dr. Cartagena. He rates his right foot pain 3 of 10 severity at this time and otherwise offers no complaints. He had some nausea immediately postoperatively in the PACU, now improved. No vomiting. He denies any chest pain, shortness of breath. Review of Systems Review of Systems: Narrative: Twelve systems were reviewed with pertinent positives and negatives as per HPI. Exam Narrative: Exam Narrative: General: Male resting sitting up on the edge of the bed in no acute distress. HEENT: Normocephalic, EOMI, oral mucosa moist. Cardiovascular: Rate and rhythm are regular. Respiratory: Lungs clear to auscultation in all lopez. Non-labored breathing. Abdomen: Soft, non-tender, non-distended, bowel sounds present. Extremities: Right foot dressing is intact, some bleeding through the dressing. Transmetatarsal amputations bilatera
[2020-05-19 11:21] LABS: Anion Gap 9 mmol/L (8-16); Blood Urea Nitrogen 16 mg/dL (9-20); Calcium 8.7 mg/dL (8.4-10.2); Carbon Dioxide 29 mmol/L (22-30); Chloride 98 mmol/L (98-107); Estimated CRCL calculation 54 ml/min; Estimated Glomerular Filt Rate 59; Glucose 324 mg/dL (75-110); Magnesium 1.9 mg/dL (1.6-2.3); Potassium 4.5 mmol/L (3.4-5.0); Sodium 136 mmol/L (137-145)
--- NOTE | 2020-05-19 12:00 | WPDINFPN2 ---
Progress Note: A&P Assessment and Plan (1) Osteomyelitis: Code(s): M86.9 - Osteomyelitis, unspecified Status: Acute Assessment and Plan: chronic PM R foot, POD #0 REC Ctx #1 (antibiotic #5), 2 more days IV tentatively Subjective Date/time seen: 05/19/20 12:00 Objective Data Vital Signs Vital Signs: Vital Signs - 24 hr 05/18/20 14:00 05/18/20 22:00 05/19/20 06:00 Temperature 36.3 C L 36.6 C 36.6 C Pulse Rate 85 83 84 Respiratory Rate 16 18 18 Blood Pressure 141/63 H 141/59 H 166/80 H Pulse Oximetry 98 94 99 05/19/20 06:15 05/19/20 08:20 05/19/20 08:35 Temperature 37.2 C 36.3 C L Pulse Rate 84 79 78 Respiratory Rate 20 16 14 Blood Pressure 175/86 H 148/76 H 142/68 H Pulse Oximetry 99 99 100 05/19/20 08:50 05/19/20 09:05 05/19/20 09:20 Temperature Pulse Rate 80 76 77 Respiratory Rate 14 14 14 Blood Pressure 141/66 H 140/69 146/70 H Pulse Oximetry 100 94 95 05/19/20 09:32 05/19/20 09:45 05/19/20 10:15 Temperature 36.3 C L 36.3 C L Pulse Rate 75 80 84 Respiratory Rate 14 18 18 Blood Pressure 158/74 H 172/72 H 158/79 H Pulse Oximetry 94 93 97 05/19/20 11:30 Temperature 36.3 C L Pulse Rate 89 Respiratory Rate 18 Blood Pressure 129/65 Pulse Oximetry 95 Intake/Output Intake/Output: Intake & Output 05/16/20 05/17/20 05/18/20 05/19/20 23:59 23:59 23:59 23:59 Intake Total 1969 2229 1979 999 Output Total 1 Balance 1969 2229 1978 999 Meds/Results Medications: Active Medications Generic Name Dose Route Start Last Admin Trade Name Freq PRN Reason Stop Dose Admin Acetaminophen 650 mg 05/16/20 07:29 Tylenol Tablet PO Q6H PRN Mild Pain (1-5) Or Fever Hydrocodone Bitart/Acetaminophen 1 tab 05/16/20 07:29 05/18/20 22:30 [place] 5-325 Mg PO 1 tab Q6H PRN Administration Pain Rated 6-10 Cilostazol 100 mg 05/16/20 07:35 05/19/20 05:39 Pletal PO Not Given BIDAC KAYLI Clopidogrel Bisulfate 75 mg 05/16/20 09:00 05/17/20 09:59 Plavix PO Not Given DAILY KAYLI Dextrose 12.5 gm 05/15/20 22:26 Dextrose 50% Syringe IV PUSH PRN PRN Hypoglycemia Protocol Glimepiride 2 mg 05/18/20 17:00 05/19/20 10:26 Amaryl PO 2 mg BIDWM KAYLI Administration Glucagon 1 mg 05/15/20 22:26 Glucagon For Inj IM PRN PRN Hypoglycemia Protocol Glucose 15 gm 05/15/20 22:26 Glutose 15 PO PRN PRN Hypoglycemia Protocol Hydrochlorothiazide 25 mg 05/16/20 09:00 05/19/20 10:26 Hydrochlorothiazide PO 25 mg DAILY KAYLI Administration Imipenem/Cilastatin Sodium 500 mg in 100 mls @ 300 mls/hr 05/15/20 22:00 05/19/20 05:59 Primaxin 500 Mg/D5w 100 Ml IVPB Infused Q8H KAYLI Infusion Dextrose 1,000 mls @ 100 mls/hr 05/15/20 22:26 Dextrose 5% 1,000 Ml IVPB PRN PRN Hypoglycemia Protocol Vancomycin HCl 1,250 mg in 250 mls @ 200 mls/hr 05/18/20 09:00 05/19/20 08:57 Vancomycin 1,250 Mg/D5w 250 Ml IVPB 200 mls/hr Q12H KAYLI Administration Insulin Aspart 4 - 8 units 05/18/20 08:00 05/19/20 10:51 Novolog SUB-Q 6 units TIDWM KAYLI Administration Protocol Insulin Aspart 4 units 05/18/20 17:00 05/19/20 10:52 Novolog 0.05 units/kg (4 units) 4 units SUB-Q Administration TIDWM [facility] Insulin Glargine 30 units 05/18/20 21:00 05/18/20 20:59 Lantus SUB-Q Not Given HS KAYLI Isosorbide Mononitrate 60 mg 05/16/20 09:00 05/19/20 10:26 Imdur PO 60 mg DAILY KAYLI Administration Lovastatin 40 mg 05/16/20 21:00 05/18/20 20:55 Lovastatin PO 40 mg HS KAYLI Administration Ondansetron HCl 4 mg 05/15/20 14:16 05/19/20 09:05 Zofran Inj IV PUSH 4 mg Q4H PRN Administration Nausea Silver Nitrate 1 applic 05/16/20 09:00 05/19/20 09:51 Silvergel TOPICAL Not Given DAILY [facility] Radiology Results: ITS Impressions Foot X-Ray 05/15/20 12:04 IMPRESSION: 1. Right transmetatar
[2020-05-19] MEDS: HYDROcodone/acetaminophen (*CRX) 5-325 MG TABLET 1 TAB PO ×2 (12:37→22:21)
--- NOTE | 2020-05-19 14:20 | CONS_ITS ---
DATE OF CONSULTATION: 05/19/2020 REASON FOR CONSULTATION: Chronic osteomyelitis. HISTORY OF PRESENT ILLNESS: A 74-year-old male with diabetes and multiple toe amputations as well as transmetatarsal amputation. In the past, he has received prolonged IV antibiotics as well as short-term and oral IV antibiotics over time. I last saw him in February and he received IV followed by oral therapy. I have not seen him in the office. He has been on no antibiotics recently for any purpose. He developed a callus over the lateral aspect of the right foot, which then began to drain. He presented to the emergency room on the . He has been on imipenem and vancomycin since then. He was taken to the operating room today where he underwent resection of the right 5th metatarsal. Operative findings included the expected osteomyelitis. The patient denies fever, chills, sweats, nausea, vomiting, diarrhea, or proximal pain in the foot or in the leg. He is able to bear weight without difficulty. His Accu-Cheks have been quite high. ALLERGIES: CRISELAD INHIBITORS. HABITS: Ex-smoker. No alcohol. PRESENT MEDICATIONS: As above. No immunosuppressants. PAST MEDICAL HISTORY: In addition to the above, vascular bypass of lower extremities, cervical spine fusion, CABG, peripheral vascular disease, susceptible Staph aureus bacteremia in October 2018, hypertension, hyperlipidemia, stage 3 chronic renal insufficiency. FAMILY HISTORY: Not pertinent to his present illness. 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 REVIEW OF SYSTEMS: Hyperglycemia. 14-point review otherwise negative. PHYSICAL EXAMINATION: GENERAL: This is an elderly male, who appears his actual age. No acute distress. VITAL SIGNS: Afebrile since arrival, 129/65, 89, 18, 95% on room air. SKIN: Few ecchymoses and petechiae consistent with trauma and phlebotomy. No rashes. Warm and dry. EENT: The conjunctivae are normal. Pupils equal, round, reactive to light. Oropharynx, oral mucosa normal. Teeth in good repair. NECK: No thyromegaly or meningismus. LUNGS: Clear to auscultation and percussion. CHEST: No indwelling vascular devices. CARDIAC: Regular rate and rhythm. No murmurs or gallops. Unable to palpate dorsalis pedis. Radial pulses 1+. ABDOMEN: Soft, nondistended. Normal bowel sounds. No organomegaly. No masses and no bruits. EXTREMITIES: His right foot is in an operative dressing, I did not remove. He has no proximal erythema, warmth, tenderness, or streaking. Toe amputations on the left. No streaking nor erythema proximally. LABORATORY DATA: From the emergency room, culture of the drainage had group B strep and a relatively susceptible E coli. No blood cultures collected. His white count is 7.4, hemoglobin 13.4, platelets are 317. White count on admission was 10.3. Differential is normal. There is mild hyponatremia. Glucose 324, earlier was 137. Accu-Cheks high. Creatinine was 1.6, now 1.2. A1c 9.5%. CRP 3.9 two days ago, 5.3 on admission. Albumin normal. RADIOLOGY: Foot MRI, right side, TMA, 5th metatarsal, osteomyelitis findings, DJD. Arterial Dopplers could not be obtained due to severely decreased right LIZBETH. Plain films of the foot, no active disease. ASSESSMENT: 1. Chronic osteomyelitis of the right 5th metatarsal, postop day 0 excised. Wound cultures above are circulation representative of pathogens. He previously had a susceptible Staph aureus in his foot as well, not reisolated. No blood cultures collected. His white blood cell count elevation has quickly resolved. 2. Diabetes mellitus, not well controlled. 3. Peripheral vascular disease, severe. 4. Atherosclerosis. RECOMMENDATIONS: 1. No benefit from long-term IV antibiotics. 2. Targ
[2020-05-19 16:53] LABS: Glucose Point of Care 343 (65-105)
[2020-05-19] MEDS: INSULIN ASPART (*BKC) 100 UNITS/ML 6 UNITS SUB-Q (17:26)
[2020-05-19 17:29] LABS: Glucose Point of Care 300 (65-105)
[2020-05-19] MEDS: cilostazoL 100 MG TABLET PO (17:29)
[2020-05-19] MEDS: LOVASTATIN 20 MG TABLET 40 MG PO (22:00)
[2020-05-19] MEDS: INSULIN GLARGINE (*BKC) 100 UNITS/ML 40 UNITS SUB-Q (22:25)
[2020-05-19 23:01] LABS: Glucose Point of Care 229 (65-105)
[2020-05-20] VITALS (8 sets, daily range): BP systolic 101–134; BP diastolic 42–65; PULSE 66–80; RESP 16–20; TEMP 36.3–37.1; O2SAT 96–99
[2020-05-20] MEDS: cilostazoL 100 MG TABLET PO ×2 (06:27→16:52)
[2020-05-20] MEDS: HYDROcodone/acetaminophen (*CRX) 5-325 MG TABLET 1 TAB PO ×3 (06:31→21:43)
[2020-05-20 06:49] LABS: Basophils Percent Auto 0.5 % (0.2-1.2); Eosinophils Absolute Auto 0.1 K/mm3 (0-0.3); Eosinophils Percent Auto 1.5 % (0-4.4); Hematocrit 34.8 % (42.0-52.0); Hemoglobin 11.9 g/dL (14.0-18.0); Immature Granulocyte Absolute 0.04 K/mm3 (0.00-0.031); Immature Granulocyte Percent A 0.5 % (0-0.5); Lymphocytes Absolute Auto 2.46 K/mm3 (0.9-3.2); Lymphocytes Percent Auto 28.7 % (18.3-44.2); Mean Corpuscular HGB Conc 34.2 g/dl (32-36); Mean Corpuscular Hemoglobin 29.8 pg (26-34); Mean Corpuscular Volume 87.2 fl (80-100); Mean Platelet Volume 10.3 fl (7.4-10.4); Monocytes Absolute Auto 0.8 K/mm3 (0.1-0.6); Monocytes Percent Auto 9.8 % (2.6-8.5); Neutrophils Absolute Auto 5.1 K/mm3 (1.3-6.7); Platelet Count Result 314 k/mm3 (150-375); Red Blood Count 3.99 M/mm3 (4.6-6.20); Red Cell Distribution Width 12.9 % (11.5-14.5); White Blood Count 8.6 K/mm3 (4.5-10.0)
[2020-05-20 07:12] LABS: Anion Gap 7 mmol/L (8-16); Blood Urea Nitrogen 21 mg/dL (9-20); Calcium 8.8 mg/dL (8.4-10.2); Carbon Dioxide 28 mmol/L (22-30); Chloride 100 mmol/L (98-107); Estimated CRCL calculation 46 ml/min; Estimated Glomerular Filt Rate 50; Glucose 194 mg/dL (75-110); Magnesium 2.1 mg/dL (1.6-2.3); Potassium 3.6 mmol/L (3.4-5.0); Sodium 135 mmol/L (137-145)
[2020-05-20 08:27] LABS: Glucose Point of Care 165 (65-105)
[2020-05-20] MEDS: SODIUM CHLORIDE 0.9% IV 1,000 ML 75 ML IV CONT ×2 (09:30→21:47)
--- NOTE | 2020-05-20 09:52 | WPDANESPN ---
Anes - Prog Note Post-Op Date/Time: 05/20/20 09:52 Cardiovascular status: normal Respiratory status: normal Airway patency: baseline Mental status: baseline Post-Op hydration status: normal Vital Signs: Last Vital Signs Temp 36.3 C L 05/20/20 06:35 Pulse 66 05/20/20 06:35 Resp 16 05/20/20 06:35 BP 120/50 L 05/20/20 06:35 Pulse Ox 96 05/20/20 06:35 Pain Score (VAS): 0 I/O: Intake & Output 05/19/20 05/20/20 05/20/20 23:59 07:59 15:59 Intake Total 1150 150 240 Balance 1150 150 240 Laboratory Tests 05/20/20 06:08 05/20/20 06:08 05/19/20 05/19/20 05/19/20 10:47 10:47 10:51 WBC 7.4 RBC 4.43 L Hgb 13.4 L Hct 40.1 L MCV 90.5 MCH 30.2 MCHC 33.4 RDW 13.2 Plt Count 317 MPV 10.5 H Immature Gran % (Auto) 0.5 Neut % (Auto) 87.7 H Lymph % (Auto) 9.1 L [place] % (Auto) 1.9 L Eos % (Auto) 0.3 Baso % (Auto) 0.5 Lymph # (Auto) 0.67 L [place] # (Auto) 0.1 Eos # (Auto) 0.0 Baso # (Auto) 0.0 Abs Immat Gran (auto) 0.04 H Absolute Neuts (auto) 6.5 Absolute Nucleated RBC 0.0 Nucleated RBC % 0.0 Sodium 136 L Potassium 4.5 Chloride 98 Carbon Dioxide 29 Anion Gap 9 BUN 16 Creatinine 1.20 Estim Creat Clear Calc 54 Estimated GFR 59 Glucose 324 H POC Capillary Glucose 310 H Calcium 8.7 Magnesium 1.9 05/19/20 05/19/20 05/19/20 12:49 17:25 22:28 WBC RBC Hgb Hct MCV MCH MCHC RDW Plt Count MPV Immature Gran % (Auto) Neut % (Auto) Lymph % (Auto) [place] % (Auto) Eos % (Auto) Baso % (Auto) Lymph # (Auto) [place] # (Auto) Eos # (Auto) Baso # (Auto) Abs Immat Gran (auto) Absolute Neuts (auto) Absolute Nucleated RBC Nucleated RBC % Sodium Potassium Chloride Carbon Dioxide Anion Gap BUN Creatinine Estim Creat Clear Calc Estimated GFR Glucose POC Capillary Glucose 343 H 300 H 229 H Calcium Magnesium 05/20/20 05/20/20 05/20/20 06:08 06:08 08:24 WBC 8.6 RBC 3.99 L Hgb 11.9 L Hct 34.8 L MCV 87.2 MCH 29.8 MCHC 34.2 RDW 12.9 Plt Count 314 MPV 10.3 Immature Gran % (Auto) 0.5 Neut % (Auto) 59.0 Lymph % (Auto) 28.7 [place] % (Auto) 9.8 H Eos % (Auto) 1.5 Baso % (Auto) 0.5 Lymph # (Auto) 2.46 [place] # (Auto) 0.8 H Eos # (Auto) 0.1 Baso # (Auto) 0.0 Abs Immat Gran (auto) 0.04 H Absolute Neuts (auto) 5.1 Absolute Nucleated RBC 0.0 Nucleated RBC % 0.0 Sodium 135 L Potassium 3.6 Chloride 100 Carbon Dioxide 28 Anion Gap 7 L BUN 21 H Creatinine 1.40 H Estim Creat Clear Calc 46 Estimated GFR 50 L Glucose 194 H POC Capillary Glucose 165 H Calcium 8.8 Magnesium 2.1 Post-procedural complaints: none Patient Feedback: Patient satisfied with anesthetic care.
--- NOTE | 2020-05-20 10:22 | WPDPN ---
Progress Note: A&P Additional Plan Culture: GBS and E.coli. See Dr Miranda's note for two days of post op IV antibiotics. Pathology: pending. Daily dressing with Silvergel. F/U with bone pathology. Home tomorrow. F/U with Dr Cartagena in one week. He can call office. Exam Extrem: Other: Foot wound redressed. No purulence, drainage or necrosis. Transected metatarsal exposed. Wound edges viable and pliable. Objective Data Vital Signs Vital Signs: Vital Signs - 24 hr 05/19/20 11:30 05/19/20 15:30 05/19/20 20:00 Temperature 36.3 C L 36.3 C L Pulse Rate 89 84 Respiratory Rate 18 18 18 Blood Pressure 129/65 102/54 L Pulse Oximetry 95 97 96 05/19/20 21:35 05/20/20 02:00 05/20/20 06:00 Temperature 36.6 C 37.1 C 36.3 C L Pulse Rate 70 74 66 Respiratory Rate 16 16 16 Blood Pressure 123/60 120/57 L 120/50 L Pulse Oximetry 97 99 96 05/20/20 06:35 Temperature 36.3 C L Pulse Rate 66 Respiratory Rate 16 Blood Pressure 120/50 L Pulse Oximetry 96 Intake/Output Intake/Output: Intake & Output 05/17/20 05/18/20 05/19/20 05/20/20 23:59 23:59 23:59 23:59 Intake Total 2230 1979 2800 390 Output Total 1 Balance 2230 1978 2800 390 Meds/Results Medications: Active Medications Generic Name Dose Route Start Last Admin Trade Name Freq PRN Reason Stop Dose Admin Acetaminophen 650 mg 05/16/20 07:29 Tylenol Tablet PO Q6H PRN Mild Pain (1-5) Or Fever Hydrocodone Bitart/Acetaminophen 1 tab 05/16/20 07:29 05/20/20 06:31 Hydrocodone/Acetaminophen (*Crx) 5-325 Mg Tablet PO 1 tab Q6H PRN Administration Pain Rated 6-10 Cilostazol 100 mg 05/16/20 07:35 05/20/20 06:27 Pletal PO 100 mg BIDAC KAYLI Administration Clopidogrel Bisulfate 75 mg 05/16/20 09:00 05/17/20 09:59 Plavix PO Not Given DAILY KAYLI Dextrose 12.5 gm 05/15/20 22:26 Dextrose 50% Syringe IV PUSH PRN PRN Hypoglycemia Protocol Glimepiride 2 mg 05/18/20 17:00 05/19/20 17:27 Amaryl PO 2 mg BIDWM KAYLI Administration Glucagon 1 mg 05/15/20 22:26 Glucagon For Inj IM PRN PRN Hypoglycemia Protocol Glucose 15 gm 05/15/20 22:26 Glutose 15 PO PRN PRN Hypoglycemia Protocol Hydrochlorothiazide 25 mg 05/16/20 09:00 05/19/20 10:26 Hydrochlorothiazide 25 Mg Tablet PO 25 mg DAILY KAYLI Administration Dextrose 1,000 mls @ 100 mls/hr 05/15/20 22:26 Dextrose 5% 1,000 Ml IVPB PRN PRN Hypoglycemia Protocol Ceftriaxone Sodium/Dextrose 1 gm in 50 mls @ 100 mls/hr 05/19/20 12:00 05/19/20 13:59 Rocephin 1 Gm/D5w 50 Ml IVPB Infused Q24H KAYLI Infusion Sodium Chloride 1,000 mls @ 75 mls/hr 05/20/20 08:25 Normal Saline Iv IV CONT .[id number] KAYLI Insulin Aspart 4 - 8 units 05/18/20 08:00 05/19/20 17:26 Novolog SUB-Q 5 units TIDWM KAYLI Administration Protocol Insulin Aspart 6 units 05/19/20 17:00 05/19/20 17:26 Novolog SUB-Q 6 units TIDWM KAYLI Administration Insulin Glargine 40 units 05/19/20 21:00 05/19/20 22:25 Lantus SUB-Q 40 units HS KAYLI Administration Isosorbide Mononitrate 60 mg 05/16/20 09:00 05/19/20 10:26 Imdur PO 60 mg DAILY KAYLI Administration Lovastatin 40 mg 05/16/20 21:00 05/19/20 22:00 Lovastatin PO 40 mg HS KAYLI Administration Ondansetron HCl 4 mg 05/15/20 14:16 05/19/20 09:05 Zofran Inj IV PUSH 4 mg Q4H PRN Administration Nausea Silver Nitrate 1 applic 05/16/20 09:00 05/19/20 09:51 Silvergel TOPICAL Not Given DAILY [facility] Radiology Results: ITS Impressions Foot X-Ray 05/15/20 12:04 IMPRESSION: 1. Right transmetatarsal amputation. 2. No acute osseous findings. Doppler Study Ultrasound 05/16/20 14:45 IMPRESSION: 1. Pressures remain unable to be obtained throughout either lower limb with the exception of the right posterior tibial artery which yields a severely decreased
[2020-05-20] MEDS: ISOSORBIDE MONONITRATE 60 MG TAB.ER.24H PO (10:30)
[2020-05-20] MEDS: CLOPIDOGREL BISULFATE 75 MG TABLET PO (10:31)
[2020-05-20] MEDS: SILVERGEL (ELTA) 45 ML 1 APPLIC TOPICAL (10:31)
[2020-05-20] MEDS: GLIMEPIRIDE 2 MG TABLET PO ×2 (10:32→16:53)
[2020-05-20] MEDS: INSULIN ASPART (*BKC) 100 UNITS/ML 6 UNITS SUB-Q ×3 (10:35→17:00)
--- NOTE | 2020-05-20 11:17 | PM.IMPN ---
Progress Note: A&P Assessment and Plan (1) Osteomyelitis: Qualifiers: Osteomyelitis type: other chronic Osteomyelitis location: foot Laterality: right Qualified Code(s): M86.671 - Other chronic osteomyelitis, right ankle and foot Code(s): M86.9 - Osteomyelitis, unspecified Status: Acute Assessment and Plan: Patient presents with wound to right 5th metatarsal head; MRI confirmed osteomyelitis. Now POD#1 s/p 5th metatarsal amputation by Dr. Cartagena 05/19/20. Treated with 4 days of IV vancomycin and imipenem. Appreciate Dr. Miranda's input - switched to IV ceftriaxone 05/19 through tomorrow then transition to oral antibiotics per Dr. Miranda's recommendation. (2) Diabetic infection of right foot: Code(s): E11.628 - Type 2 diabetes mellitus with other skin complications; L08.9 - Local infection of the skin and subcutaneous tissue, unspecified Status: Acute Assessment and Plan: See above. (3) Insulin dependent diabetes mellitus: Status: Acute Assessment and Plan: Hgb A1c 9.5. Patient has plans to follow-up with an outpatient dormitory supervisor soon. Continue Lantus, mealtime NovoLog and his home glimepiride. Aim for tighter glycemic control to optimize wound healing. (4) Chronic kidney disease, stage 3: Qualifiers: Chronic kidney disease stage 3 subtype: stage 3a (GFR 45-59) Qualified Code(s): N18.31 - Chronic kidney disease, stage 3a Code(s): N18.30 - Chronic kidney disease, stage 3 unspecified Status: Acute Assessment and Plan: Cr trending up slightly to 1.4 this morning. Will hold home HCTZ, restart gentle IV hydration and monitor renal function. (5) Peripheral arterial disease: Code(s): I73.9 - Peripheral vascular disease, unspecified Status: Acute Assessment and Plan: Continue home cilostazol, plavix resumed. (6) Hypertension: Qualifiers: Hypertension type: essential hypertension Qualified Code(s): I10 - Essential (primary) hypertension Code(s): I10 - Essential (primary) hypertension Status: Chronic Assessment and Plan: Blood pressures reviewed and are stable/on the lower end of normal. Continue Imdur, HCTZ held. Monitor BP and adjust treatment as needed. (7) Hyperlipidemia: Qualifiers: Hyperlipidemia type: unspecified Qualified Code(s): E78.5 - Hyperlipidemia, unspecified Code(s): E78.5 - Hyperlipidemia, unspecified Status: Chronic Assessment and Plan: Continue home statin therapy. (8) Cellulitis of right foot: Code(s): L03.115 - Cellulitis of right lower limb Status: Acute Assessment and Plan: See above. Subjective Date/time seen: 05/20/20 1015 Interval history: Mr. Handley is a 74yo M admitted for right foot osteomyelitis now POD#1 s/p right 5th metatarsal amputation by Dr. Cartagena. His right foot pain is reasonably controlled at this time and he offers no other complaints. He denies chest pain or shortness of breath. He is tolerating oral intake without nausea or vomiting. He is hopeful for discharge tomorrow. Review of Systems Review of Systems: All systems reviewed & are unremarkable except as noted in HPI and below Exam Narrative: Exam Narrative: General: Male resting comfortably in bed in no acute distress. HEENT: Normocephalic, EOMI, oral mucosa moist. Cardiovascular: Rate and rhythm are regular. Respiratory: Lungs clear to auscultation in all lopez. Non-labored breathing. Abdomen: Soft, non-tender, non-distended, bowel sounds present. Extremities: Right foot d
[2020-05-20 12:36] LABS: Glucose Point of Care 243 (65-105)
--- NOTE | 2020-05-20 12:40 | PM.PROC ---
Procedure Note - Detailed Date of procedure: 05/19/20 Pre-op diagnosis: Right foot wound, Osteomyelitis Right Foot Post-op diagnosis: same Procedure performed: Debridement of abscess right foot wound and amputation of right 5th metatarsal. Description of procedure: In the holding benson the patient's right foot was marked for clarification. He was taken to the operating room and transferred to the operating table where he was placed supine. A time-out was held and confirmed. He was given general anesthesia with an LMA. The foot was prepped and draped in the usual fashion. No local anesthetic was infiltrated. Pus was easily expressed from the half cm wound by compressing along the lateral foot. The surgical excision encompassed the entire ulcerated area and extended along the lateral foot paralleling the 5th metatarsal. A large skin island was removed. Careful inspection revealed no formed abscess cavity. There did not appear to destruction of soft tissue medial to the 5th metatarsal. Evidence of purulence and inflammation seemed to be limited to the distal shaft of the lateral metatarsal. the metatarsal was transected at a 45 degree angle in the proximal shaft. The gross specimen was sent to pathology. The amputated edge was smoothed with a rongeur. The wound was irrigated copiously with saline. It was dressed Mepilex Ag sponge and bulky gauze with Ba wrap. This procedure was done without tourniquet control. It was noted there was ample bleeding from all aspects of soft tissue and bone marrow suggesting adequate supply for potential healing. Surgeon: Jose Cartagena MD
[2020-05-20] MEDS: INSULIN ASPART (*BKC) 100 UNITS/ML SUB-Q (12:55)
--- NOTE | 2020-05-20 14:19 | WPDINFPN2 ---
Progress Note: A&P Assessment and Plan (1) Osteomyelitis: Code(s): M86.9 - Osteomyelitis, unspecified Status: Acute Assessment and Plan: chronic OM R foot, POD #1 abscess drainage and further resection REC Ctx #2 (antibiotic #6), 1 more day IV then 4 weeks po Subjective Date/time seen: 05/20/20 14:19 Interval history: no complaints Exam Narrative: Exam Narrative: afebrile Const: General: no acute distress GI: GI Palp: Yes Soft to palpation and No Tenderness to palpation present (GI) Extrem: Other: foot dressed, no erythema Objective Data Vital Signs Vital Signs: Vital Signs - 24 hr 05/19/20 15:30 05/19/20 20:00 05/19/20 21:35 Temperature 36.3 C L 36.6 C Pulse Rate 84 70 Respiratory Rate 18 18 16 Blood Pressure 102/54 L 123/60 Pulse Oximetry 97 96 97 05/20/20 02:00 05/20/20 06:00 05/20/20 06:35 Temperature 37.1 C 36.3 C L 36.3 C L Pulse Rate 74 66 66 Respiratory Rate 16 16 16 Blood Pressure 120/57 L 120/50 L 120/50 L Pulse Oximetry 99 96 96 05/20/20 08:00 05/20/20 10:00 Temperature 36.3 C L Pulse Rate 77 77 Respiratory Rate 20 20 Blood Pressure 113/54 L Pulse Oximetry 97 97 Intake/Output Intake/Output: Intake & Output 05/17/20 05/18/20 05/19/20 05/20/20 23:59 23:59 23:59 23:59 Intake Total 2230 1979 2800 720 Output Total 1 Balance 0 1978 2800 720 Meds/Results Medications: Active Medications Generic Name Dose Route Start Last Admin Trade Name Freq PRN Reason Stop Dose Admin Acetaminophen 650 mg 05/16/20 07:29 Tylenol Tablet PO Q6H PRN Mild Pain (1-5) Or Fever Hydrocodone Bitart/Acetaminophen 1 tab 05/16/20 07:29 05/20/20 11:18 Hydrocodone/Acetaminophen (*Crx) 5-325 Mg Tablet PO 1 tab Q6H PRN Administration Pain Rated 6-10 Cilostazol 100 mg 05/16/20 07:35 05/20/20 06:27 Pletal PO 100 mg BIDAC KAYLI Administration Clopidogrel Bisulfate 75 mg 05/16/20 09:00 05/20/20 10:31 Plavix PO 75 mg DAILY KAYLI Administration Dextrose 12.5 gm 05/15/20 22:26 Dextrose 50% Syringe IV PUSH PRN PRN Hypoglycemia Protocol Glimepiride 2 mg 05/18/20 17:00 05/20/20 10:32 Amaryl PO 2 mg BIDWM KAYLI Administration Glucagon 1 mg 05/15/20 22:26 Glucagon For Inj IM PRN PRN Hypoglycemia Protocol Glucose 15 gm 05/15/20 22:26 Glutose 15 PO PRN PRN Hypoglycemia Protocol Hydrochlorothiazide 25 mg 05/16/20 09:00 05/19/20 10:26 Hydrochlorothiazide 25 Mg Tablet PO 25 mg DAILY KAYLI Administration Dextrose 1,000 mls @ 100 mls/hr 05/15/20 22:26 Dextrose 5% 1,000 Ml IVPB PRN PRN Hypoglycemia Protocol Ceftriaxone Sodium/Dextrose 1 gm in 50 mls @ 100 mls/hr 05/19/20 12:00 05/20/20 12:55 Rocephin 1 Gm/D5w 50 Ml IVPB 100 mls/hr Q24H KAYLI Administration Sodium Chloride 1,000 mls @ 75 mls/hr 05/20/20 08:25 Normal Saline Iv IV CONT .[id number] KAYLI Insulin Aspart 4 - 8 units 05/18/20 08:00 05/20/20 12:55 Novolog SUB-Q 4 units TIDWM KAYLI Administration Protocol Insulin Aspart 6 units 05/19/20 17:00 05/20/20 12:56 Novolog SUB-Q 6 units TIDWM KAYLI Administration Insulin Glargine 40 units 05/19/20 21:00 05/19/20 22:25 Lantus SUB-Q 40 units HS KAYLI Administration Isosorbide Mononitrate 60 mg 05/16/20 09:00 05/20/20 10:30 Imdur PO 60 mg DAILY KAYLI Administration Lovastatin 40 mg 05/16/20 21:00 05/19/20 22:00 Lovastatin PO 40 mg HS KAYLI Administration Ondansetron HCl 4 mg 05/15/20 14:16 05/19/20 09:05 Zofran Inj IV PUSH 4 mg Q4H PRN Administration Nausea Silver Nitrate 1 applic 05/16/20 09:00 05/20/20 10:31 Silvergel TOPICAL 1 applic DAILY KAYLI Administration Radiology Results: ITS Impressions Foot X-Ray 05/15/20 12:04 IMPRESSION: 1. Right transmetatarsal amputation. 2. No acute osseous findings. Dopple
[2020-05-20 17:17] LABS: Glucose Point of Care 185 (65-105)
[2020-05-20] MEDS: LOVASTATIN 20 MG TABLET 40 MG PO (21:43)
[2020-05-20] MEDS: INSULIN GLARGINE (*BKC) 100 UNITS/ML 40 UNITS SUB-Q (21:46)
[2020-05-20 21:51] LABS: Glucose Point of Care 259 (65-105)
[2020-05-21 06:00] VITALS: BP 128/63; PULSE 71; RESP 16; TEMP 36.6; O2SAT 97
[2020-05-21] MEDS: HYDROcodone/acetaminophen (*CRX) 5-325 MG TABLET 1 TAB PO (06:20)
[2020-05-21] MEDS: cilostazoL 100 MG TABLET PO (06:20)
[2020-05-21 07:17] LABS: Anion Gap 5 mmol/L (8-16); Blood Urea Nitrogen 20 mg/dL (9-20); Calcium 8.6 mg/dL (8.4-10.2); Carbon Dioxide 29 mmol/L (22-30); Chloride 106 mmol/L (98-107); Estimated CRCL calculation 50 ml/min; Estimated Glomerular Filt Rate 54; Glucose 57 mg/dL (75-110); Potassium 3.9 mmol/L (3.4-5.0); Sodium 140 mmol/L (137-145)
--- NOTE | 2020-05-21 07:22 | PC.NURSE ---
8 oz Apple Juice given. Blood sugar 74. Continue to monitor.
[2020-05-21 08:00] VITALS: PULSE 71; RESP 16; O2SAT 97
[2020-05-21 08:39] LABS: Glucose Point of Care 74 (65-105)
[2020-05-21] MEDS: GLIMEPIRIDE 2 MG TABLET PO (08:53)
[2020-05-21] MEDS: ISOSORBIDE MONONITRATE 60 MG TAB.ER.24H PO (08:53)
[2020-05-21] MEDS: SILVERGEL (ELTA) 45 ML 1 APPLIC TOPICAL (08:54)
[2020-05-21] MEDS: CLOPIDOGREL BISULFATE 75 MG TABLET PO (08:54)
[2020-05-21 10:13] LABS: Glucose Point of Care 100 (65-105)
--- NOTE | 2020-05-21 11:35 | PM.DS ---
DS: Admitting Diagnosis Admitting Diagnosis Admitting Diagnosis: Right foot wound, Osteomyelitis Right Foot DS: Discharge Diagnosis Discharge Diagnosis (1) Osteomyelitis: Qualifiers: Osteomyelitis type: other chronic Osteomyelitis location: foot Laterality: right Qualified Code(s): M86.671 - Other chronic osteomyelitis, right ankle and foot Code(s): M86.9 - Osteomyelitis, unspecified Status: Acute Assessment and Plan: Date of Admission: 05/15/20 Date of Discharge/DOS: 05/21/20 Mr. Handley is a 74yo M with history of insulin-dependent type 2 diabetes mellitus, chronic kidney disease, peripheral arterial disease, hypertension and hyperlipidemia who presented to the ED for evaluation of right diabetic foot ulcer. He has history of multiple toe amputations and most recently, on 03/11/20 underwent sharp excision of gangrenous muscle and amputation of left 5th metatarsal by Dr Cartagena. MRI confirmed osteomyelitis to right 5th metatarsal head. He was again evaluated by Dr Cartagena and on 05/19/20 underwent right 5th metatarsal amputation. He was also evaluated again by Dr Miranda, Infectious Disease. He was initially treated with 4 days IV vancomycin and imipenem, then switched to IV rocephin by Dr Miranda's recommendation 05/19. He will continue oral Keflex x 4 more weeks also per ID recommendations. A1c 9.5. Blood sugars varied during hospitalization but ultimately will continue his home DM regimen at discharge with close PCP follow up. He was educated on the importance of checking his blood sugars regularly and the importance of tight glycemic control for wound healing. He also plans to establish with an forestry supervisor soon. He was doing well postoperatively and was hemodynamically stable for discharge 05/21/20 with instructions to follow up with Dr Cartagena in the office in 1 week. Patient presents with wound to right 5th metatarsal head; MRI confirmed osteomyelitis. Discharged POD#2 s/p 5th metatarsal amputation by Dr. Cartagena 05/19/20. Treated with 4 days of IV vancomycin and imipenem. Appreciate Dr. Miranda's input - switched to IV ceftriaxone 05/19 through 05/21 then discharged with oral Keflex x 4 weeks. (2) Diabetic infection of right foot: Code(s): E11.628 - Type 2 diabetes mellitus with other skin complications; L08.9 - Local infection of the skin and subcutaneous tissue, unspecified Status: Acute Assessment and Plan: See above. (3) Insulin dependent diabetes mellitus: Status: Acute Assessment and Plan: Hgb A1c 9.5. Patient has plans to follow-up with an outpatient forestry supervisor soon. (4) Chronic kidney disease, stage 3: Qualifiers: Chronic kidney disease stage 3 subtype: stage 3a (GFR 45-59) Qualified Code(s): N18.31 - Chronic kidney disease, stage 3a Code(s): N18.30 - Chronic kidney disease, stage 3 unspecified Status: Acute Assessment and Plan: Cr 1.2 to 1.4 at his baseline. (5) Peripheral arterial disease: Code(s): I73.9 - Peripheral vascular disease, unspecified Status: Acute Assessment and Plan: Continue home cilostazol, plavix resumed postoperatively. (6) Hypertension: Qualifiers: Hypertension type: essential hypertension Qualified Code(s): I10 - Essential (primary) hypertension Code(s): I10 - Essential (primary) hypertension Status: Chronic Assessment and Plan: Blood pressures reviewed and are stable/on the lower end of normal. Continue Imdur, HCTZ held one day but resumed at discharge. (7) Hyperlipidemia: Qualifiers: Hyperlipidemia type: unspecified Qualified Code
--- NOTE | 2020-05-21 12:03 | WPDPN ---
Progress Note: A&P Additional Plan Right foot wound redressed. Clot in wound. No bleeding. Skin margins viable. Discharge today. Objective Data Vital Signs Vital Signs: Vital Signs - 24 hr 05/20/20 14:00 05/20/20 19:35 05/20/20 22:00 Temperature 36.5 C 36.6 C Pulse Rate 80 72 Respiratory Rate 18 18 20 Blood Pressure 101/42 L 134/65 Pulse Oximetry 97 96 96 05/21/20 06:00 05/21/20 08:00 Temperature 36.6 C Pulse Rate 71 71 Respiratory Rate 16 16 Blood Pressure 128/63 Pulse Oximetry 97 97 Intake/Output Intake/Output: Intake & Output 05/18/20 05/19/20 05/20/20 05/21/20 23:59 23:59 23:59 23:59 Intake Total 1979 2800 2210 690 Output Total 1 1700 Balance 1978 2800 2210 -1010 Meds/Results Medications: Active Medications Generic Name Dose Route Start Last Admin Trade Name Freq PRN Reason Stop Dose Admin Acetaminophen 650 mg 05/16/20 07:29 Tylenol Tablet PO Q6H PRN Mild Pain (1-5) Or Fever Hydrocodone Bitart/Acetaminophen 1 tab 05/16/20 07:29 05/21/20 06:20 Hydrocodone/Acetaminophen (*Crx) 5-325 Mg Tablet PO 1 tab Q6H PRN Administration Pain Rated 6-10 Cilostazol 100 mg 05/16/20 07:35 05/21/20 06:20 Pletal PO 100 mg BIDAC KAYLI Administration Clopidogrel Bisulfate 75 mg 05/16/20 09:00 05/21/20 08:54 Plavix PO 75 mg DAILY KAYLI Administration Dextrose 12.5 gm 05/15/20 22:26 Dextrose 50% Syringe IV PUSH PRN PRN Hypoglycemia Protocol Glimepiride 2 mg 05/18/20 17:00 05/21/20 08:53 Amaryl PO 2 mg BIDWM KAYLI Administration Glucagon 1 mg 05/15/20 22:26 Glucagon For Inj IM PRN PRN Hypoglycemia Protocol Glucose 15 gm 05/15/20 22:26 Glutose 15 PO PRN PRN Hypoglycemia Protocol Hydrochlorothiazide 25 mg 05/16/20 09:00 05/19/20 10:26 Hydrochlorothiazide 25 Mg Tablet PO 25 mg DAILY KAYLI Administration Dextrose 1,000 mls @ 100 mls/hr 05/15/20 22:26 Dextrose 5% 1,000 Ml IVPB PRN PRN Hypoglycemia Protocol Ceftriaxone Sodium/Dextrose 1 gm in 50 mls @ 100 mls/hr 05/19/20 12:00 05/21/20 10:55 Rocephin 1 Gm/D5w 50 Ml IVPB Infused Q24H KAYLI Infusion Sodium Chloride 1,000 mls @ 75 mls/hr 05/20/20 08:25 05/21/20 00:11 Normal Saline Iv IV CONT Not Given .[id number] KAYLI Insulin Aspart 4 - 8 units 05/18/20 08:00 05/21/20 07:23 Novolog SUB-Q Not Given TIDWM [facility] Protocol Insulin Aspart 6 units 05/19/20 17:00 05/21/20 07:24 Novolog SUB-Q Not Given TIDWM KAYLI Insulin Glargine 40 units 05/19/20 21:00 05/20/20 21:46 Lantus SUB-Q 40 units HS KAYLI Administration Isosorbide Mononitrate 60 mg 05/16/20 09:00 05/21/20 08:53 Imdur PO 60 mg DAILY KAYLI Administration Lovastatin 40 mg 05/16/20 21:00 05/20/20 21:43 Lovastatin PO 40 mg HS KAYLI Administration Ondansetron HCl 4 mg 05/15/20 14:16 05/19/20 09:05 Zofran Inj IV PUSH 4 mg Q4H PRN Administration Nausea Silver Nitrate 1 applic 05/16/20 09:00 05/21/20 08:54 Silvergel TOPICAL 1 applic DAILY KAYLI Administration Radiology Results: ITS Impressions Foot X-Ray 05/15/20 12:04 IMPRESSION: 1. Right transmetatarsal amputation. 2. No acute osseous findings. Doppler Study Ultrasound 05/16/20 14:45 IMPRESSION: 1. Pressures remain unable to be obtained throughout either lower limb with the exception of the right posterior tibial artery which yields a severely decreased right LIZBETH. There are widened systolic peaks with delayed upstrokes at the bilateral posterior tibial and dorsalis pedis arteries. Foot MRI 05/16/20 14:59 IMPRESSION: 1. First and fifth transmetatarsal osteotomies with osteomyelitis at the distal aspect of the remaining fifth metatarsal. Labs Labs: Laboratory Results - last 24 hr 05/20/20 05/20/20 05/20/20 12:33 16:58 21:45 Sodium Potassium Chlorid
== END 2020-05-21 12:15 | disposition home health service (06) | DRG 617 ==
LOC: ANHED 13:30 → ANH3MEDSUR 14:54
PROVIDERS: Emergency Medicine Emergency Medical Services; Family Medicine; Physician Assistant; Plastic Surgery; Admitting Provider Internal Medicine; Emergency Provider Emergency Medicine; PCP Physician Assistant; Visit Provider Family Medicine
PROC: 0Y6M0ZF Detachment at Right Foot, Partial 5th Ray, Open Approach (ICD-10-PCS; principal; 2020-05-19 07:30)
DX: E11.69 Type 2 diabetes mellitus with other specified complication (principal); M86.671 Other chronic osteomyelitis, right ankle and foot; E11.22 Type 2 diabetes mellitus with diabetic chronic kidney disease; B95.1 Streptococcus, group B, as the cause of diseases classified elsewhere; B96.20 Unspecified Escherichia coli [E. coli] as the cause of diseases classified elsewhere; I12.9 Hypertensive chronic kidney disease with stage 1 through stage 4 chronic kidney disease, or unspecified chronic kidney disease; N18.30 Chronic kidney disease, stage 3 unspecified; E11.51 Type 2 diabetes mellitus with diabetic peripheral angiopathy without gangrene; I73.9 Peripheral vascular disease, unspecified; E78.5 Hyperlipidemia, unspecified; E11.621 Type 2 diabetes mellitus with foot ulcer; E87.6 Hypokalemia; L97.519 Non-pressure chronic ulcer of other part of right foot with unspecified severity; I25.10 Atherosclerotic heart disease of native coronary artery without angina pectoris; M19.90 Unspecified osteoarthritis, unspecified site; Z95.1 Presence of aortocoronary bypass graft; Z89.422 Acquired absence of other left toe(s); Z89.421 Acquired absence of other right toe(s); Z98.1 Arthrodesis status
CPT/HCPCS: 36415; 73630; 73718; 80048; 80076; 80202; 83036; 83735; 85025; 85027; 86140; 87070; 87075; 87077; 87147; 87186; 87205; 88309; 93923; 96365; 96366; 96367; 96375; 99285; A9270; G0378; J0131; J0696; J0743; J1100; J1815; J2370; J2405; J2704; J3010; J3370; J7030; J7120

== ENCOUNTER 2020-06-21 03:37 | Outpatient (CLI) | payer MEDICARE, SELFPAY ==
[2020-06-21 20:39] LABS: SARS-CoV-2 RNA PCR Negative
== END 2020-06-21 03:38 | disposition home or self-care (01) ==
LOC: ANHCOVIDDT 03:37
PROVIDERS: PCP Physician Assistant; Visit Provider Plastic Surgery
DX: Z01.812 Encounter for preprocedural laboratory examination (principal); Z20.828 Contact with and (suspected) exposure to other viral communicable diseases
CPT/HCPCS: 87635; C9803; U0003

== ENCOUNTER 2020-06-24 00:36 | Day surgery (SDC) | payer MEDICARE, SELFPAY ==
[2020-06-17 14:39] VITALS: BMI 25.1
--- NOTE | 2020-06-23 10:26 | WPDANESEPPF ---
Anes - Initial Pre Proc Eval Procedure: Operation Date: 06/24/20 07:30 Proposed Procedures p Full Thickness Skin Graft From The Right Thigh To The Right Foot Wound And Application Of Wound-Vac - Jose Cartagena MD Date/Time: 06/23/20 10:26 Surgeon: Jose Cartagena MD Pre Op Diagnosis: Diabetic Foot Wound Right Lateral Fifth Metatarsal Patient Data Age: 74 Gender: M Height: 1.83 m Weight: 84 kg Allergies Allergy/AdvReac Type Severity Reaction Status Date / Time CRISELDA Inhibitors Allergy Unknown Nausea Verified 06/24/20 06:50 Home Medications Medication Instructions Recorded Confirmed Type clopidogrel 75 mg tablet 75 mg PO DAILY #90 tablet 08/29/19 06/24/20 Rx cilostazol 100 mg tablet 100 mg PO BID 09/03/19 06/24/20 History hydrochlorothiazide 25 mg tablet 25 mg PO DAILY #90 tablet 12/22/19 06/24/20 Rx isosorbide mononitrate 60 mg PO DAILY 03/08/20 06/24/20 History lovastatin 40 mg PO HS 03/08/20 06/24/20 History silver [Silver-Sept] 1 applic TOPICAL DAILY #45 g 05/21/20 06/24/20 Rx insulin glargine 100 unit/mL (3 40 unit SUBCUT QPM ml 05/27/20 06/24/20 History mL) subcutaneous pen insulin lispro 100 unit/mL See Rx Instructions SUBCUT 06/16/20 06/24/20 History subcutaneous pen .COMPLEX ml ECG: Date of Service: 03/29/20 Procedure(s): CA 12 lead EKG Accession Number(s): [id number] cc: ~ Measurements Intervals Raymond Rate: 87 P: 35 [place]: 166 QRS: 32 QRSD: 93 T: 75 QT: 373 QTc: 450 Interpretive Statements SINUS RHYTHM NONSPECIFIC T-WAVE ABNORMALITY- HIGH LATERAL LEADS BORDERLINE ECG Electronically Signed On 03-29-2020 11:18:19 CDT by Elijah Deal D.O. Dictated By: Elijah Deal DO 03/29/20 1101 Patient hx anesthesia problems: none Family hx anesthesia problems: none PMFSH Past Medical History Medical History Anemia Arthritis Chronic kidney disease, stage 3 Baseline creatinine as 1.3 and 1.60. Coronary artery disease Status post CABG in 2004. Diabetic infection of right foot History of amputation of toe Hyperlipidemia Hypertension Insulin dependent diabetes mellitus Complicated by peripheral neuropathy and neuropathy. MSSA bacteremia (~10/2018) Secondary to left 1st toe infection. Osteomyelitis Requiring amputation of all toes on the right foot over time as well as left 1st toe amputation. Peripheral arterial disease Status post right lower extremity balloon angioplasty. Surgical History Surgical History Amputation toe :Transmetatarsal amputations of all toes on the right foot, some requiring further debridement with split-thickness graft per Dr. Cartagena. :Trans phalangeal amputation of the left 1st toe to the proximal phalanges. History of coronary artery bypass graft (~2004) 4 vessel bypass. 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 Status post debridement Multiple debridements of diabetic foot infections on both feet over the years per Dr. Cartagena, several requiring skin grafts. Family History Family History Mother Family history of lung cancer Patient's mother is Father Family history of throat cancer Sibling Heart disease Social History Social History Social History: Surrogate decision maker: Katharina Milliganon, spouse. Code status: Full code. Smoking status:
[2020-06-24 06:28] VITALS: BP 122/78; PULSE 93; RESP 14; TEMP 36.3; O2SAT 99
[2020-06-24] MEDS: LACTATED RINGERS 1,000 ML 30 ML IV CONT (07:05)
[2020-06-24 07:10] LABS: Glucose Point of Care 66 (65-105)
--- NOTE | 2020-06-24 07:16 | SUR.PREOP ---
0716 instructions for wound vac use at home given to pt per aline ferguson.
--- NOTE | 2020-06-24 07:21 | WPDHPUPDATE1 ---
History and Physical Update Update Date/Time: 06/24/20 07:21 History and Physical has been reviewed, including an updated exam of the patient. There are NO changes in the patient's condition. Risks, benefits, and alternatives have been discussed and questions answered. Patient agrees to proceed with procedure.
[2020-06-24] MEDS: DEXTROSE 50% 25 GM/50 ML SYRINGE IV PUSH (07:26)
[2020-06-24] MEDS: LIDO 1%/EPINEPHRINE 1:100,000 20 ML VIAL INFILTRATE (07:55)
--- NOTE | 2020-06-24 08:11 | PCWOUND ---
WOCN NOTE patient signed wound vac rental order and order faxed to I. instructed patient on wound vac operation with understanding stated.
[2020-06-24 08:56] VITALS: BP 109/60; PULSE 76; RESP 16; O2SAT 96
[2020-06-24] MEDS: ONDANSETRON INJ 4 MG/2 ML VIAL IV PUSH ×2 (09:21→09:55)
[2020-06-24 09:25] VITALS: BP 126/70; PULSE 70; RESP 16; O2SAT 97
--- NOTE | 2020-06-24 09:45 | PM.OP ---
Procedure Note - Brief Procedure Note - Brief Date of procedure: 06/24/20 Pre-op diagnosis: Diabetic Foot Wound Right Lateral Fifth Metatarsal Post-op diagnosis: same Procedure performed: Preparation of wound bed and full thickness skin graft 2 sq cm to the right lateral foot from the right thigh. Anesthesia: MAC Surgeon: Jose Cartagena MD Estimated blood loss (mL): 2 Tourniquet time (min): 0 Drains: Yes (Wound VAC to graft site.) Packing: No Pathology: none sent Complications: No immediate complications Condition: stable Disposition: same day
--- NOTE | 2020-06-24 09:52 | PM.PROC ---
Procedure Note - Detailed Date of procedure: 06/24/20 Pre-op diagnosis: Diabetic Foot Wound Right Lateral Fifth Metatarsal Post-op diagnosis: same Procedure performed: Surgical preparation of the the right lateral foot wound bed and full-thickness skin graft from the right thigh to sq cm. Description of procedure: The right lateral foot wound was marked as the patient waited in the holding area. He was taken to the operating room where he was placed supine on the operating table. A time-out was held and confirmed. The right lower extremity was prepped and draped in usual fashion throughout its length including the foot. Patient was given IV sedation. The site was locally infiltrated with 1% lidocaine with epinephrine. The 15 blade was used to excise 1-2 mm from the margins of the wound all the way around. A 15 blade was used also to scrape exudate from the wound bed. The stump of the amputated right 5th metatarsal was identified in the wound. Because of that we elected to place some 2-0 sutures to oppose the narrow part of this wound. This covered the bone with full-thickness tissue. Wound measurements were transfer to the thigh were a graft was outlined and locally infiltrated with 1% lidocaine with epinephrine. The full-thickness graft was taken with a 15 blade. It was put on saline. The donor site was undermined and trimmed of excess tissue and closed with intradermal 2-0 Vicryl sutures. Glue was applied over the top. The graft was carefully defatted. It was tailored and inset to the wound bed with interrupted and running 5 0 nylon. The wound VAC was applied over Mepitel 1 and tested. It functioned well. The patient is discharged home with instructions in wound care and follow-up. In order was placed for home health nurse follow him. Prescriptions for doxycycline 100 mg b.i.d. 14. And hydrocodone/APAP 5/325 8. Were electronically sent. Surgeon: Jose Cartagena MD
[2020-06-24 09:55] VITALS: BP 127/59; PULSE 64; RESP 16; O2SAT 95
[2020-06-24 10:22] VITALS: BP 139/77; PULSE 73; RESP 16
[2020-06-24 12:29] LABS: Glucose Point of Care 88 (65-105)
== END 2020-06-24 10:28 | disposition home or self-care (01) ==
PROVIDERS: PCP Physician Assistant; Visit Provider Plastic Surgery
PROC: (CPT 15240; principal; 2020-06-24 07:30)
DX: E11.621 Type 2 diabetes mellitus with foot ulcer (principal); L97.519 Non-pressure chronic ulcer of other part of right foot with unspecified severity; I12.9 Hypertensive chronic kidney disease with stage 1 through stage 4 chronic kidney disease, or unspecified chronic kidney disease; E11.22 Type 2 diabetes mellitus with diabetic chronic kidney disease; N18.30 Chronic kidney disease, stage 3 unspecified; E78.5 Hyperlipidemia, unspecified; I25.10 Atherosclerotic heart disease of native coronary artery without angina pectoris; E11.51 Type 2 diabetes mellitus with diabetic peripheral angiopathy without gangrene; E11.42 Type 2 diabetes mellitus with diabetic polyneuropathy; D64.9 Anemia, unspecified; Z95.1 Presence of aortocoronary bypass graft; Z79.4 Long term (current) use of insulin; Z79.02 Long term (current) use of antithrombotics/antiplatelets
CPT/HCPCS: 15240; 15004; A9270; J2250; J2405; J2704; J3010; J7120

== ENCOUNTER 2020-07-23 19:55 | Emergency (ER) | payer MEDICARE, SELFPAY ==
[2020-07-23 20:04] VITALS: BP 125/73; PULSE 101; RESP 17; TEMP 36.4; O2SAT 100
--- NOTE | 2020-07-23 20:21 | ED.LOWEXIN ---
HPI - Extremity Injury (Lower) General Chief Complaint: Extremity Injury, Lower Stated Complaint: Blister on l foot,diabetic Time Seen by Provider: 07/23/20 20:09 Source: patient Mode of arrival: ambulatory Limitations: no limitations History of Present Illness HPI Narrative: 74 years old white male presents to the ED with a hemorrhagic blister on the bottom of the front of the left foot. History of diabetes, history of left toes amputation. Patient denies any fever, chills, pain, or trauma Related Data Home Medications Medication Instructions Recorded Confirmed cilostazol 100 mg tablet 100 mg PO BID 09/03/19 06/24/20 isosorbide mononitrate 60 mg PO DAILY 03/08/20 06/24/20 lovastatin 40 mg PO HS 03/08/20 06/24/20 insulin glargine 100 unit/mL (3 40 unit SUBCUT QPM ml 05/27/20 06/24/20 mL) subcutaneous pen insulin lispro 100 unit/mL See Rx Instructions SUBCUT 06/16/20 06/24/20 subcutaneous pen .COMPLEX ml Allergies Allergy/AdvReac Type Severity Reaction Status Date / Time CRISELDA Inhibitors Allergy Unknown Nausea Verified 07/23/20 20:06 Review of Systems Review of Systems: Narrative: CONSTITUTIONAL: Denies fever, chills, or sweats. EYES: Denies visual changes, redness, or discharge. ENT: Denies rhinorrhea, congestion, sore throat, or otalgia. CARDIOVASCULAR: Denies chest pain, palpitations, or edema. RESPIRATORY: Denies cough or dyspnea. GASTROINTESTINAL: Denies abdominal pain, nausea, vomiting, or diarrhea. GENITOURINARY: Denies dysuria or hematuria. SKIN: Denies rash or itching. MUSCULOSKELETAL: Denies back pain, joint pain, or myalgia. NEUROLOGIC: Denies headache, numbness, or weakness. PSYCHIATRIC: Denies anxiety or depression. [facility] Past Medical History Medical History (Updated 07/23/20 @ 20:58 by Shay Brown MD) Anemia Arthritis Chronic kidney disease, stage 3 Baseline creatinine as 1.3 and 1.60. Coronary artery disease Status post CABG in 2004. Diabetic infection of right foot History of amputation of toe Hyperlipidemia Hypertension Insulin dependent diabetes mellitus Complicated by peripheral neuropathy and neuropathy. MSSA bacteremia (~10/2018) Secondary to left 1st toe infection. Osteomyelitis Requiring amputation of all toes on the right foot over time as well as left 1st toe amputation. Peripheral arterial disease Status post right lower extremity balloon angioplasty. Surgical History Surgical History Amputation toe :Transmetatarsal amputations of all toes on the right foot, some requiring further debridement with split-thickness graft per Dr. Cartagena. :Trans phalangeal amputation of the left 1st toe to the proximal phalanges. History of coronary artery bypass graft (~2004) 4 vessel bypass. 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 Status post debridement Multiple debridements of diabetic foot infections on both feet over the years per Dr. Cartagena, several requiring skin grafts. Family History Family History Mother Family history of lung cancer Patient's mother is Father Family history of throat cancer Sibling Heart disease Social History Social History Social History: Surrogate decision maker: Katharina Paez, spouse. Code status: Full code. Smoking status: Never smoker Second hand tobacco smoke exposure: No Alcohol intake: former Substance use: never Substance use type: does not use Additional living arrangements comments: Lives with his spouse in [place]. 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 Spiritual care concerns: No
== END 2020-07-23 21:07 | disposition home or self-care (01) ==
PROVIDERS: Emergency Provider Emergency Medicine; PCP Physician Assistant
DX: S90.32XA Contusion of left foot, initial encounter (principal); E11.22 Type 2 diabetes mellitus with diabetic chronic kidney disease; I12.9 Hypertensive chronic kidney disease with stage 1 through stage 4 chronic kidney disease, or unspecified chronic kidney disease; N18.30 Chronic kidney disease, stage 3 unspecified; E11.51 Type 2 diabetes mellitus with diabetic peripheral angiopathy without gangrene; I25.10 Atherosclerotic heart disease of native coronary artery without angina pectoris; E78.5 Hyperlipidemia, unspecified; Z79.4 Long term (current) use of insulin; Z95.1 Presence of aortocoronary bypass graft; Z89.412 Acquired absence of left great toe; Z89.411 Acquired absence of right great toe; Z89.421 Acquired absence of other right toe(s); X58.XXXA Exposure to other specified factors, initial encounter
CPT/HCPCS: 10160; 87070; 87205; 99283

== ENCOUNTER 2020-11-19 17:31 | Outpatient (CLI) | payer MEDICARE, SELFPAY ==
--- NOTE | ~2020-11-19 | XR_ITS ---
EXAMINATION: XR hip LT min 2V INDICATION: Left hip pain TECHNIQUE: Three views of the left hip are obtained. COMPARISON: None available FINDINGS: Bone alignment is normal. There is no fracture. There is moderate osteoarthritis of the hip . Phleboliths are present in the pelvis. Calcified atherosclerosis is noted. IMPRESSION: 1. Moderate hip osteoarthritis. Reviewed, dictated and finalized at location A.
== END 2020-11-19 17:32 | disposition home or self-care (01) ==
LOC: ANHIMG 17:38
PROVIDERS: PCP Physician Assistant; Visit Provider Internal Medicine
DX: M25.552 Pain in left hip (principal); M16.12 Unilateral primary osteoarthritis, left hip
CPT/HCPCS: 73502

== ENCOUNTER 2020-12-27 14:54 | Outpatient (CLI) | payer MEDICARE, SELFPAY ==
--- NOTE | 2020-12-27 15:03 | ECG_ITS ---
Measurements Intervals [place] Rate: 89 P: 32 OR: 164 QRS: 18 QRSD: 90 T: 81 QT: 368 QTc: 448 Interpretive Statements SINUS RHYTHM NONSPECIFIC T-WAVE ABNORMALITY- HIGH LATERAL LEADS BORDERLINE ECG Electronically Signed On 12-27-2020 18:51:53 CDT by Elijah Deal D.O.
== END 2020-12-27 14:55 | disposition home or self-care (01) ==
PROVIDERS: PCP Physician Assistant; Visit Provider Physician Assistant
DX: Z01.810 Encounter for preprocedural cardiovascular examination (principal)
CPT/HCPCS: 93005

== ENCOUNTER 2021-06-08 00:31 | Day surgery (SDC) | payer MEDICARE, SELFPAY ==
[2021-05-31 15:38] VITALS: BMI 27.1
--- NOTE | 2021-06-07 09:29 | WPDANESEPPF ---
Anes - Initial Pre Proc Eval Procedure: Operation Date: 06/08/21 08:30 Proposed Procedures p Screening Colonoscopy - Dante Mitchell MD Date/Time: 06/07/21 09:29 Surgeon: Dante Mitchell MD Pre Op Diagnosis: neoplasm screening Patient Data Age: 75 Gender: M Height: 1.83 m Weight: 91 kg Allergies Allergy/AdvReac Type Severity Reaction Status Date / Time CRISELDA Inhibitors AdvReac Intermediate Nausea Verified 06/08/21 07:36 Home Medications Medication Instructions Recorded Confirmed Type cilostazol 100 mg tablet 100 mg PO BID 09/03/19 05/31/21 History blood sugar diagnostic #100 ea 07/01/20 05/09/21 Rx clopidogrel 75 mg tablet 75 mg PO DAILY #90 tablet 08/01/20 05/31/21 Rx isosorbide mononitrate 60 mg 60 mg PO DAILY #90 tablet 04/25/21 05/31/21 Rx tablet,extended release 24 hr hydrochlorothiazide 25 mg PO DAILY 05/31/21 05/31/21 History insulin glargine [Lantus Solostar 40 unit SUBCUT QPM 05/31/21 05/31/21 History U-100 Insulin] lovastatin 40 mg PO DAILY 05/31/21 05/31/21 History Patient hx anesthesia problems: none Family hx anesthesia problems: none Results Review: All pre-operative results and documents have been reviewed as part of the pre-operative evaluation. [facility] Past Medical History Medical History Anemia Arthritis Chronic kidney disease, stage 3 Baseline creatinine as 1.3 and 1.60. Coronary artery disease Status post CABG in 2004. Diabetic infection of right foot History of amputation of toe Hyperlipidemia Hypertension Hypokalemia Insulin dependent diabetes mellitus Complicated by peripheral neuropathy and neuropathy. MSSA bacteremia (~10/2018) Secondary to left 1st toe infection. Osteomyelitis Requiring amputation of all toes on the right foot over time as well as left 1st toe amputation. Peripheral arterial disease Status post right lower extremity balloon angioplasty. Surgical History Surgical History Amputation toe :Transmetatarsal amputations of all toes on the right foot, some requiring further debridement with split-thickness graft per Dr. Cartagena. :Trans phalangeal amputation of the left 1st toe to the proximal phalanges. History of coronary artery bypass graft (~2004) 4 vessel bypass. 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 Hx of coronary artery bypass graft 4 VESSEL 2004, NO CHIEF ENGINEER PRESENTLY Status post debridement Multiple debridements of diabetic foot infections on both feet over the years per Dr. Cartagena, several requiring skin grafts. Family History Family History Mother Family history of lung cancer Patient's mother is Father Family history of throat cancer Sibling Heart disease Social History Social History Social History: Surrogate decision maker: Katharina Paez, spouse. Code status: Full code. Smoking status: Never smoker Second hand tobacco smoke exposure: No Alcohol intake: current Alcohol use details: rarely Substance use: never Substance use type: does not use Living arrangements: with family Additional living arrangements comments: Lives with his spouse in [place]. 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 Sexual Orientation (if Verbalized by the Patient): Straight or Heterosexual Spiritual care concerns: No Anes - Eval Final PreProcedure Day of Procedure 06/07/21 09:29 Patient weight: overweight Heart: regular rate and rhythm Lungs: clear to auscultation and normal air movement Airway: [place]ampat
--- NOTE | 2021-06-07 13:26 | PM.HPGS ---
History of Present Illness History of Present Illness Consent: Risks, benefits, and alternatives have been discussed and questions answered. Patient agrees to proceed with procedure. Chief complaint: neoplasm screening Narrative: Chris Handley is a 75 year old male Referred for colon cancer screening Review of Systems Review of Systems: All systems reviewed & are unremarkable except as noted in HPI and below PMFSH Past Medical History Medical History Anemia Arthritis Chronic kidney disease, stage 3 Baseline creatinine as 1.3 and 1.60. Coronary artery disease Status post CABG in 2004. Diabetic infection of right foot History of amputation of toe Hyperlipidemia Hypertension Hypokalemia Insulin dependent diabetes mellitus Complicated by peripheral neuropathy and neuropathy. MSSA bacteremia (~10/2018) Secondary to left 1st toe infection. Osteomyelitis Requiring amputation of all toes on the right foot over time as well as left 1st toe amputation. Peripheral arterial disease Status post right lower extremity balloon angioplasty. Surgical History Surgical History Amputation toe :Transmetatarsal amputations of all toes on the right foot, some requiring further debridement with split-thickness graft per Dr. Cartagena. :Trans phalangeal amputation of the left 1st toe to the proximal phalanges. History of coronary artery bypass graft (~2004) 4 vessel bypass. 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 Cartagena, several requiring skin grafts. Family History Family History Mother Family history of lung cancer Patient's mother is Father Family history of throat cancer Sibling Heart disease Social History Social History Social History: Surrogate decision maker: Katharina Paez, spouse. Code status: Full code. Smoking status: Never smoker Second hand tobacco smoke exposure: No Alcohol intake: current Alcohol use details: rarely Substance use: never Substance use type: does not use Living arrangements: with family Additional living arrangements comments: Lives with his spouse in [place]. 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 Sexual Orientation (if Verbalized by the Patient): Straight or Heterosexual Spiritual care concerns: No Meds Home Medications and Allergies Home Medications Medication Instructions Recorded Confirmed Type cilostazol 100 mg tablet 100 mg PO BID 09/03/19 05/31/21 History blood sugar diagnostic #100 ea 07/01/20 05/09/21 Rx clopidogrel 75 mg tablet 75 mg PO DAILY #90 tablet 08/01/20 05/31/21 Rx isosorbide mononitrate 60 mg 60 mg PO DAILY #90 tablet 04/25/21 05/31/21 Rx tablet,extended release 24 hr hydrochlorothiazide 25 mg PO DAILY 05/31/21 05/31/21 History insulin glargine [Lantus Solostar 40 unit SUBCUT QPM 05/31/21 05/31/21 History U-100 Insulin] lovastatin 40 mg PO DAILY 05/31/21 05/31/21 History Allergies Allergy/AdvReac Type Severity Reaction Status Date / Time CRISELDA Inhibitors AdvReac Intermediate Nausea Verified 06/08/21 07:36 Exam Resp: Auscultation: clear to auscultation bilaterally Cardio: Rate: regular rate Rhythm: regular rhythm GI: GI Palp: Yes Soft to palpation and No Tenderness to palpation present (GI) Assessment and Plan Assessment and plan (1) Colon
[2021-06-08 07:39] VITALS: BP 95/56; PULSE 98; RESP 20; TEMP 36.4; O2SAT 99; BMI 26.5
[2021-06-08 07:54] LABS: Glucose Point of Care 154 mg/dl (65-105)
[2021-06-08] MEDS: LACTATED RINGERS 1,000 ML 150 ML IV CONT (08:10)
[2021-06-08 08:47] VITALS: BP 64/37; PULSE 74; RESP 18; O2SAT 96
[2021-06-08 08:49] VITALS: BP 79/48
[2021-06-08 08:55] VITALS: BP 93/60
[2021-06-08 08:57] VITALS: BP 92/49; PULSE 71; RESP 18; O2SAT 95
[2021-06-08 09:07] VITALS: BP 127/73; PULSE 75; RESP 15; O2SAT 98
[2021-06-08 09:10] LABS: Glucose Point of Care 166 mg/dl (65-105)
== END 2021-06-08 09:26 | disposition home or self-care (01) ==
PROVIDERS: PCP Physician Assistant; Visit Provider Internal Medicine Gastroenterology
PROC: 0DJD8ZZ Inspection of Lower Intestinal Tract, Via Natural or Artificial Opening Endoscopic (ICD-10-PCS; CPT 45378; principal; 2021-06-08 08:30)
DX: Z12.11 Encounter for screening for malignant neoplasm of colon (principal); K64.8 Other hemorrhoids; K57.30 Diverticulosis of large intestine without perforation or abscess without bleeding; K63.5 Polyp of colon; D64.9 Anemia, unspecified; I12.9 Hypertensive chronic kidney disease with stage 1 through stage 4 chronic kidney disease, or unspecified chronic kidney disease; M19.90 Unspecified osteoarthritis, unspecified site; M86.9 Osteomyelitis, unspecified; N18.30 Chronic kidney disease, stage 3 unspecified; E11.22 Type 2 diabetes mellitus with diabetic chronic kidney disease; E78.5 Hyperlipidemia, unspecified; E87.6 Hypokalemia; Z95.1 Presence of aortocoronary bypass graft; Z79.4 Long term (current) use of insulin; E11.42 Type 2 diabetes mellitus with diabetic polyneuropathy
CPT/HCPCS: 45385; 82948; 88305; J2370; J2704; J7120

== ENCOUNTER 2021-08-01 09:09 | Outpatient (CLI) | payer MEDICARE, SELFPAY ==
[2021-08-01 10:05] LABS: Anion Gap 7 mmol/L (8-16); Blood Urea Nitrogen 31 mg/dL (9-20); Calcium 9.4 mg/dL (8.4-10.2); Carbon Dioxide 32 mmol/L (22-30); Chloride 97 mmol/L (98-107); Estimated Glomerular Filt Rate 42; Glucose 150 mg/dL (65-110); Potassium 3.2 mmol/L (3.4-5.0); Sodium 136 mmol/L (137-145)
[2021-08-01 10:11] LABS: Creatinine Urine 76.6 mg/dL
[2021-08-01 10:15] LABS: MALB Creatinine Ratio 96.6 mg/g (0-30)
[2021-08-01 10:16] LABS: LDL Cholesterol Direct 97 mg/dL
[2021-08-01 11:12] LABS: Vitamin B12 > 1000.0 pg/mL (239-931)
== END 2021-08-01 09:10 | disposition home or self-care (01) ==
PROVIDERS: PCP Physician Assistant; Visit Provider Internal Medicine Endocrinology, Diabetes & Metabolism
DX: E11.65 Type 2 diabetes mellitus with hyperglycemia (principal); Z51.81 Encounter for therapeutic drug level monitoring; Z79.4 Long term (current) use of insulin
CPT/HCPCS: 36415; 80048; 82043; 82607; 83721; 84443

== ENCOUNTER 2021-08-12 09:17 | Outpatient (CLI) | payer MEDICARE, SELFPAY ==
[2021-08-12 09:46] LABS: Anion Gap 9 mmol/L (8-16); Blood Urea Nitrogen 26 mg/dL (9-20); Calcium 9.2 mg/dL (8.4-10.2); Carbon Dioxide 30 mmol/L (22-30); Chloride 98 mmol/L (98-107); Estimated Glomerular Filt Rate 46; Glucose 109 mg/dL (65-110); Potassium 3.1 mmol/L (3.4-5.0); Sodium 137 mmol/L (137-145)
== END 2021-08-12 09:18 | disposition home or self-care (01) ==
PROVIDERS: PCP Physician Assistant; Visit Provider Internal Medicine Endocrinology, Diabetes & Metabolism
DX: E11.65 Type 2 diabetes mellitus with hyperglycemia (principal); N18.31 Chronic kidney disease, stage 3a; Z79.4 Long term (current) use of insulin
CPT/HCPCS: 36415; 80048

== ENCOUNTER 2021-09-19 09:02 | Outpatient (CLI) | payer MEDICARE, SELFPAY ==
[2021-09-19 10:19] LABS: Anion Gap 8 mmol/L (8-16); Blood Urea Nitrogen 30 mg/dL (9-20); Calcium 9.1 mg/dL (8.4-10.2); Carbon Dioxide 30 mmol/L (22-30); Chloride 98 mmol/L (98-107); Estimated Glomerular Filt Rate 42; Glucose 267 mg/dL (65-110); Potassium 3.1 mmol/L (3.4-5.0); Sodium 136 mmol/L (137-145)
== END 2021-09-19 09:03 | disposition home or self-care (01) ==
PROVIDERS: PCP Physician Assistant; Visit Provider Internal Medicine Endocrinology, Diabetes & Metabolism
DX: E87.6 Hypokalemia (principal)
CPT/HCPCS: 36415; 80048

== ENCOUNTER 2021-12-04 21:10 | Inpatient (IN) | payer MEDICARE, SELFPAY ==
--- NOTE | ~2021-12-04 | XR_ITS ---
EXAMINATION: XR chest 1V portable INDICATION: Shortness of breath TECHNIQUE: Portable AP chest at 0940 hours COMPARISON: 12/14/2021 FINDINGS: There is a stable moderate size right pleural effusion. Diffuse interstitial and airspace o pacities persist in all lung zones with interval increase. There is no pneumothorax. Cardiomegaly is noted. Median sternotomy wires and mediastinal surgical clips are seen, likely from prior coronary ar hernan bypass grafting. Surgical changes are noted in the cervical spine. IMPRESSION: 1. Diffuse lung disease with interval worsening, consistent with pneumonia and/or pulmonary edema. 2. Moderate size right pleural effusion. Reviewed, dictated and finalized at location B. IMPRESSION: 1. Diffuse lung disease with interval worsening, consistent with pneumonia and/ or pulmonary edema. 2. Moderate size right pleural effusion.
--- NOTE | ~2021-12-04 | XR_ITS ---
XR chest 1V portable DATE: 12/10/2021 05:46 INDICATION: Bilateral pneumonia TECHNIQUE: Portable AP chest on 12/10/2021 at 0526 hours COMPARISON: Portable AP chest on 12/09/2021 years and 0512 hours FINDINGS: Persistent extensive patchy consolidating infiltrates are noted bilaterally, relatively spa ring only the left upper lung. There is no significant change since yesterday. Cardiomegaly. Aortic calcification. Status post sternotomy. Status post lower anterior cervical spine surgical fusion. IMPRESSION: No significant change of extensive patchy consolidating bilateral pulmonary infiltrates s marivel 12/09/2021 Reviewed, dictated and finalized at location A. IMPRESSION: No significant change of extensive patchy consolidating bilateral p ulmonary infiltrates since 12/09/2021
--- NOTE | ~2021-12-04 | XR_ITS ---
EXAMINATION: XR chest 1V portable DATE: 12/09/2021 05:33 INDICATION: Bilateral pneumonia. TECHNIQUE: A single frontal view of the chest was obtained. COMPARISON: Chest single view 12/08/2021 FINDINGS: There are airspace opacities in all right lung zones and in left mid and lower lung zones. No pleural effusion or pneumothorax. The heart size is normal. Median sternotomy wires and mediastina l surgical clips are seen, likely from prior coronary artery bypass grafting. There are changes of an terior fusion procedure in cervical spine. IMPRESSION: 1. Stable multifocal lung disease, consistent with pneumonia. Reviewed, dictated and finalized at location A.
--- NOTE | ~2021-12-04 | XR_ITS ---
EXAMINATION: XR chest 1V portable DATE: 12/13/2021 05:42 INDICATION: Shortness of breath TECHNIQUE: frontal view of the chest was obtained. COMPARISON: Chest radiograph dated 12/11/2021 FINDINGS: Increasing patchy airspace opacities throughout both lungs relatively sparing the apices. No enlargem ent in a now moderate-sized right pleural effusion. No pneumothorax or definitive left pleural effusi on. The cardiomediastinal silhouette is within normal limits for AP technique. Median sternotomy wire s and mediastinal surgical clips are seen, likely from prior coronary artery bypass grafting. Plate a nd screw fixation for lower cervical anterior spinal fusion. IMPRESSION: 1. Increasing diffuse bilateral lung disease which could represent pulmonary edema or pneumonia. 2. Enlarging moderate-sized right pleural effusion. Reviewed, dictated and finalized at location A. IMPRESSION: 1. Increasing diffuse bilateral lung disease which could represent pulmonary ed genaro or pneumonia. 2. Enlarging moderate-sized right pleural effusion.
--- NOTE | ~2021-12-04 | XR_ITS ---
EXAMINATION: XR chest 1V portable DATE: 12/06/2021 06:05 INDICATION: Pneumonia. TECHNIQUE: A single frontal view of the chest was obtained. COMPARISON: Chest single view 12/05/2021 FINDINGS: There are airspace opacities in all right lung zones, worst in right midlung zone. There ar e airspace opacities in left mid and lower lung zones. There is a diffuse interstitial pattern. No pl eural effusion or pneumothorax. The heart size is normal. Median sternotomy wires and mediastinal tarun gical clips are seen, likely from prior coronary artery bypass grafting. There are changes of anterio r fusion procedure in cervical spine. IMPRESSION: 1. Multifocal lung disease with mild worsening, likely a combination of multifocal pneumonia and mild pulmonary edema. Reviewed, dictated and finalized at location A. IMPRESSION: 1. Multifocal lung disease with mild worsening, likely a combination of multifo deana pneumonia and mild pulmonary edema.
--- NOTE | ~2021-12-04 | XR_ITS ---
XR_[id number]_CR DATE: 12/19/2021 12:49 INDICATION: Pleural effusion. Post right thoracentesis TECHNIQUE: AP chest on 12/29/2021 at 1247 hours following thoracentesis COMPARISON: 12/16/2021 portable AP chest FINDINGS: There is no evidence of pneumothorax following right thoracentesis. Mild residual right pleural effusion. Patchy bilateral pulmonary infiltrates persist. Status post sternotomy. Status post anterior cervical spine surgical fusion. IMPRESSION: No evidence of pneumothorax post thoracentesis Reviewed, dictated and finalized at Location A. Reviewed, dictated and finalized at location B.
--- NOTE | ~2021-12-04 | XR_ITS ---
EXAMINATION: XR chest 1V portable DATE: 12/05/2021 00:51 INDICATION: Increased oxygen requirement. TECHNIQUE: A single frontal view of the chest was obtained. COMPARISON: Chest single view 12/04/2021, chest 2 views 11/03/2018 FINDINGS: There are airspace opacities in the mid and lower lung zones, worst in right upper lobe. No pleural effusion or pneumothorax. The heart size is normal. Median sternotomy wires and mediastinal surgical clips are seen, likely from prior coronary artery bypass grafting. There are changes of ante rior fusion procedure in cervical spine. IMPRESSION: 1. Stable airspace opacities in the mid and lower lung zones, consistent with pneumonia. Reviewed, dictated and finalized at location A. IMPRESSION: 1. Stable airspace opacities in the mid and lower lung zones, consistent with p neumonia.
--- NOTE | ~2021-12-04 | US_ITS ---
EXAMINATION: US thoracentesis DATE: 12/19/2021 12:50 INDICATION: Right pleural effusion TECHNIQUE: The procedure and its risks and benefits were discussed with the patient. Potential risks discussed included bleeding, infection, and pneumothorax. The patient understood the risks and agreed to proceed. The skin was prepped and draped in sterile fashion. 1% lidocaine was used for local anes thesia. Under ultrasound guidance, a 5 Fr catheter with trochar was advanced into the right pleural e ffusion. The needle and catheter were advanced continuous ultrasound observation through a few of the largest loculated fluid pockets. Fluid was aspirated with progressive withdrawal of the catheter as each fluid pocket was decompressed. The catheter was removed, and a dressing was applied. There were no immediate complications. FINDINGS: Ultrasound images demonstrate a likely loculated small to moderate-sized complex right pleural effusi on with numerous thin internal septations. Subsequent images demonstrate the catheter within the flui d. IMPRESSION: 1. Successful ultrasound-guided thoracentesis yielding 100 mL of clear yellow fluid. Of note the rig ht pleural effusion is complex and likely loculated with multiple internal thin internal septations w hich precluded aspiration of a significant portion of the effusion. Reviewed, dictated and finalized at location A. IMPRESSION: 1. Successful ultrasound-guided thoracentesis yielding 100 mL of clear yellow fluid. Of note the right pleural effusion is complex and likely loculated with multiple internal thin internal septations which precluded aspiration of a sign ificant portion of the effusion.
--- NOTE | ~2021-12-04 | XR_ITS ---
XR chest 1V portable DATE: 12/11/2021 05:31 INDICATION: Hypoxia TECHNIQUE: Portable AP chest on 12/11/2021 at 0510 hours COMPARISON: 12/10/2021 portable AP chest at 0526 hours FINDINGS: There are persistent patchy bilateral consolidating infiltrates and mild right pleural effu susanne, not significantly changed since 12/10/2021. IMPRESSION: No significant change since 12/10/2021 Reviewed, dictated and finalized at location A.
--- NOTE | ~2021-12-04 | XR_ITS ---
EXAMINATION: XR chest 1V portable DATE: 12/14/2021 05:31 INDICATION: Pneumonia TECHNIQUE: frontal view of the chest was obtained. COMPARISON: Chest radiograph dated 12/13/2021 FINDINGS: Interval crease in the diffuse airspace opacities throughout both lungs. Minimal decrease in a modera te-sized right pleural effusion. No pneumothorax or left pleural effusion. The cardiomediastinal silh ouette is within normal limits for AP technique. Median sternotomy wires and mediastinal surgical cli ps are seen, likely from prior coronary artery bypass grafting. Plate and screw fixation for lower ce rvical anterior spinal fusion. IMPRESSION: 1. Decrease in the diffuse bilateral airspace opacities which could represent pulmonary edema or pneu monia. 2. Minimal decrease in a still moderate sized right pleural effusion. Reviewed, dictated and finalized at location A. IMPRESSION: 1. Decrease in the diffuse bilateral airspace opacities which could represent p ulmonary edema or pneumonia. 2. Minimal decrease in a still moderate sized right pleural effusion.
--- NOTE | ~2021-12-04 | XR_ITS ---
EXAMINATION: XR chest 2V DATE: 12/23/2021 09:17 INDICATION: Shortness of breath TECHNIQUE: AP and lateral views of the chest are obtained. COMPARISON: 12/19/2021 FINDINGS: There are patchy bilateral airspace opacities with interval improvement. There is a small t o moderate-sized right pleural effusion with slight decrease. No pneumothorax is identified. Median s ternotomy wires and mediastinal surgical clips are seen, likely from prior coronary artery bypass gra fting. IMPRESSION: 1. Improving bilateral airspace opacities, consistent with pneumonia versus pulmonary edema. 2. Moderate size right pleural effusion and interval decrease. Reviewed, dictated and finalized at location A. IMPRESSION: 1. Improving bilateral airspace opacities, consistent with pneumonia versus pul monary edema. 2. Moderate size right pleural effusion and interval decrease.
--- NOTE | ~2021-12-04 | XR_ITS ---
XR chest 2V DATE: 12/11/2021 07:48 INDICATION: Hypoxia TECHNIQUE: AP and lateral views COMPARISON: 12/11/2021 portable AP chest FINDINGS: Persistent patchy bilateral pulmonary consolidation is noted with little interval change si nce 12/11/2021. Right pleural effusion is suggested. Status post sternotomy and coronary bypass graft surgery. Aortic calcification. Status post anterior cervical spine surgical fusion. IMPRESSION: No significant change with patchy bilateral consolidating infiltrates and mild right pleu ral effusion since 12/11/2021 Reviewed, dictated and finalized at location A. IMPRESSION: No significant change with patchy bilateral consolidating infiltrat es and mild right pleural effusion since 12/11/2021
--- NOTE | ~2021-12-04 | US_ITS ---
EXAMINATION: US venous doppler [facility] DATE: 12/16/2021 17:22 INDICATION: Respiratory abnormality, unspecified TECHNIQUE: Loving scale images without and with compression and Doppler images of the bilateral lower e xtremity veins were obtained. COMPARISON: None FINDINGS: The right common femoral vein, profunda femoral vein, femoral vein, popliteal vein, peroneal trunk, p osterior tibial veins, and greater saphenous vein are patent. The left common femoral vein, profunda femoral vein, femoral vein, popliteal vein, peroneal trunk, po sterior tibial veins, and greater saphenous vein are patent. IMPRESSION: 1. Patent bilateral lower extremity veins. No evidence of deep venous thrombosis. Reviewed, dictated and finalized at location B. IMPRESSION: 1. Patent bilateral lower extremity veins. No evidence of deep venous thrombosi s.
--- NOTE | ~2021-12-04 | US_ITS ---
EXAMINATION: US venous doppler UE RT DATE: 12/13/2021 12:36 INDICATION: Right upper limb edema. TECHNIQUE: Grayscale ultrasound images without and with compression and Doppler ultrasound images of the right upper extremity veins were obtained. COMPARISON: None. FINDINGS: The visualized portions of the right internal jugular vein, subclavian vein, axillary vein, brachial veins, basilic vein, radial vein, and ulnar vein are patent. There is thrombus in right cephalic vein . IMPRESSION: 1. No deep venous thrombosis. 2. Thrombus in right cephalic vein, which is a superficial vein. Reviewed, dictated and finalized at location B.
--- NOTE | ~2021-12-04 | XR_ITS ---
EXAMINATION: XR Abdomen PICC DATE: 12/05/2021 14:00 INDICATION: Central line placement. TECHNIQUE: A supine view of the abdomen was obtained. COMPARISON: None. FINDINGS: There are no dilated loops of bowel. There is a vascular stent in the area of left common i liac artery. There is a right groin catheter with tip in the inferior vena cava at L3. IMPRESSION: 1. Catheter tip in the inferior vena cava at L3. Reviewed, dictated and finalized at location A.
--- NOTE | ~2021-12-04 | XR_ITS ---
EXAMINATION: XR chest 1V portable DATE: 12/08/2021 05:55 INDICATION: Bilateral pneumonia. TECHNIQUE: A single frontal view of the chest was obtained. COMPARISON: Chest single view 12/07/2021 FINDINGS: There are heterogeneous airspace opacities in the mid and lower lung zones. No pleural effu susanne or pneumothorax. The heart size is normal. Median sternotomy wires and mediastinal surgical clip s are seen, likely from prior coronary artery bypass grafting. There are changes of anterior fusion p rocedure in cervical spine. IMPRESSION: 1. Multifocal lung disease with improvement in right upper lobe, consistent with pneumonia. Reviewed, dictated and finalized at location A. IMPRESSION: 1. Multifocal lung disease with improvement in right upper lobe, consistent wit h pneumonia.
--- NOTE | ~2021-12-04 | XR_ITS ---
EXAMINATION: XR chest 1V portable DATE: 12/04/2021 22:51 INDICATION: Shortness of breath. TECHNIQUE: A single frontal view of the chest was obtained. COMPARISON: Chest 2 views 11/03/2018 FINDINGS: There are patchy airspace opacities in the mid and lower lung zones, worst in right upper l obe. No pleural effusion or pneumothorax. The heart size is normal. Median sternotomy wires and media stinal surgical clips are seen, likely from prior coronary artery bypass grafting. There are changes of anterior fusion procedure in cervical spine. IMPRESSION: 1. Patchy airspace opacities in the mid and lower lung zones, consistent with pneumonia. Reviewed, dictated and finalized at location A. IMPRESSION: 1. Patchy airspace opacities in the mid and lower lung zones, consistent with p neumonia.
--- NOTE | ~2021-12-04 | XR_ITS ---
EXAMINATION: XR chest 1V portable DATE: 12/07/2021 05:58 INDICATION: Bilateral pneumonia. TECHNIQUE: A single frontal view of the chest was obtained. COMPARISON: Chest single view 12/06/2021 FINDINGS: There are airspace opacities in all right lung zones, worst in right upper lobe. There are airspace opacities in left mid and lower lung zones with a peripheral predominance. No pneumothorax o r pleural effusion. The heart size is normal. Median sternotomy wires and mediastinal surgical clips are seen, likely from prior coronary artery bypass grafting. There are changes of anterior fusion pro cedure in cervical spine. IMPRESSION: 1. Stable multifocal lung disease, consistent with pneumonia. Reviewed, dictated and finalized at location A.
--- NOTE | ~2021-12-04 | US_ITS ---
EXAMINATION: US renal BI DATE: 12/05/2021 09:52 INDICATION: Obstructive uropathy TECHNIQUE: Multiple ultrasound grayscale images of the kidneys were obtained. COMPARISON: 11/08/2018 FINDINGS: The right kidney measures 11.7 x 4.6 x 5.2 cm. The left kidney measures 11.9 x 5.6 x 6.2 cm. The kidn eys demonstrate normal echogenicity. There is no hydronephrosis in either kidney. No stones identifi ed. The bladder is poorly visualized, likely decompressed. IMPRESSION: 1. Normal kidneys without hydronephrosis. Reviewed, dictated and finalized at location B.
--- NOTE | ~2021-12-04 | XR_ITS ---
EXAMINATION: XR chest 1V portable DATE: 12/16/2021 05:40 INDICATION: Pneumonia TECHNIQUE: frontal view of the chest was obtained. COMPARISON: Chest radiograph dated 12/15/2021 FINDINGS: Slight interval decrease in bilateral patchy airspace opacities throughout both lungs relatively spar ing the apices. Unchanged moderate sized right pleural effusion no pneumothorax. The cardiomediastina l silhouette is normal. Median sternotomy wires and mediastinal surgical clips are seen, likely from prior coronary artery bypass grafting. Plate and screw fixation for lower cervical anterior spinal fu susanne. IMPRESSION: 1. Slight improvement in the diffuse bilateral lung disease which could represent pulmonary edema and /or pneumonia. 2. Unchanged moderate sized right pleural effusion. Reviewed, dictated and finalized at location A. IMPRESSION: 1. Slight improvement in the diffuse bilateral lung disease which could represe nt pulmonary edema and/or pneumonia. 2. Unchanged moderate sized right pleural effusion.
[2021-12-04 21:44] VITALS: BP 120/58; PULSE 122; RESP 22; TEMP 36.8; O2SAT 91
--- NOTE | 2021-12-04 21:53 | ECG_ITS ---
Measurements Intervals [place] Rate: 123 P: 27 [place]: 145 QRS: 12 QRSD: 90 T: 96 QT: 409 QTc: 587 Interpretive Statements SINUS TACHYCARDIA SUSPECT ANTERIOR WALL MN AGE UNDETERMINED COMPARED TO ECG 12/27/2020 15:19:12 SINUS TACHYCARDIA NOW PRESENT MYOCARDIAL INFARCT FINDING NOW PRESENT Electronically Signed On 12-05-2021 16:16:22 CDT by Law Germain M.D.
[2021-12-04 21:58] LABS: Glucose Point of Care > 500 mg/dl (65-105)
[2021-12-04 22:42] LABS: Alveolar/Arterial O2 Gradient 117.2 mmHg; Base Excess ABG -12.7 mEq/l (+/-2.0); Carboxyhemoglobin 0.6 % THb (0-2.0); Fractional Inspired Oxygen 28 %; HCO3 ABG 10.8 mEq/l (22.0-26.0); Methemoglobin ABG 0.3 %THb (0-1.5); Oxygen Content ABG 17.8 %vol (16.0-22.0); Oxygen Saturation ABG 89.2 % (95.0-100.0); Oxyhemoglobin 88.1 % THb (90.0-100.0); PO2 FiO2 Ratio Arterial Blood 2.07 %; Total Hemoglobin 14.4 g/dL (12.0-18.0); pH ABG 7.335 (7.350-7.450)
[2021-12-04 22:46] LABS: Device NASAL CANNULA; Modified Allen's Test Pass; PCO2 ABG 20.7 mmHg (35.0-45.0); Site Drawn LEFT BRACHIAL
[2021-12-04] MEDS: SODIUM CHLORIDE 0.9% IV 1,000 ML 999 ML IV CONT ×2 (22:51→22:52)
[2021-12-04 22:52] LABS: Hematocrit 43.2 % (42.0-52.0); Hemoglobin 14.9 g/dL (14.0-18.0); Mean Corpuscular HGB Conc 34.5 g/dl (32-36); Mean Corpuscular Volume 86.9 fl (80-100); Mean Platelet Volume 10.9 fl (7.4-10.4); Platelet Count Result 413 k/mm3 (150-375); Red Blood Count 4.97 M/mm3 (4.6-6.20); Red Cell Distribution Width 13.2 % (11.5-14.5); White Blood Count 19.5 K/mm3 (4.5-10.0)
[2021-12-04 22:59] VITALS: O2SAT 94
[2021-12-04 23:00] VITALS: PULSE 119
--- NOTE | 2021-12-04 23:00 | ED.SOB ---
HPI - SOB/Dyspnea General Chief Complaint: Shortness of Breath/Dyspnea Stated Complaint: congestion/cough, N/V Time Seen by Provider: 12/04/21 21:56 History of Present Illness HPI Narrative: Patient is a 76-year-old male who presents ER with shortness of breath and fatigue. Patient and report over the last 3 weeks patient has had sinus congestion sore throat and cough. He has had increasingly worse shortness of breath. He has been in [place] the last few days. [facility] [place] [facility] and came [facility]. No lower extremity edema. Denies chest pain or chest pressure. She does have history of heart disease for which she is had a CABG and is also had a left femoral stent. He does not follow with a vp celebrity services. Open heart surgery was performed at [facility]. Lower extremity stent performed at [facility] with someone from [facility]. Patient has been compliant with his diabetes medication, he is not checked her blood sugar today. He is vaccinated against COVID-19. Related Data Home Medications Medication Instructions Recorded Confirmed cilostazol 100 mg tablet 100 mg PO BID 09/03/19 09/18/21 lovastatin 40 mg PO DAILY 05/31/21 09/18/21 Allergies Allergy/AdvReac Type Severity Reaction Status Date / Time CRISELDA Inhibitors AdvReac Intermediate Nausea Verified 12/04/21 21:49 Review of Systems Review of Systems: All systems reviewed & are unremarkable except as noted in HPI and below Constitutional: Constitutional: Denies chills, Reports fatigue, Denies fever(s) and Reports weakness ENT: Reports nasal congestion and Reports sore throat Cardiovascular: Cardiovascular: Denies chest pain, Denies rapid heart rate and Denies radiating jaw, neck or arm pain Respiratory: Respiratory: Reports chest congestion, Reports cough, Reports dyspnea and Denies wheezing Gastrointestinal: Gastrointestinal: Denies abdominal pain, Denies diarrhea, Denies nausea and Denies vomiting Genitourinary: Genitourinary: Denies dysuria, Denies urinary frequency and Denies urinary incontinence Musculoskeletal: Musculoskeletal: Denies back pain, Denies joint swelling and Denies muscle cramps PMFSH Past Medical History Medical History Anemia Arthritis Chronic kidney disease, stage 3 Baseline creatinine as 1.3 and 1.60. Coronary artery disease Status post CABG in 2004. Diabetic infection of right foot History of amputation of toe Hyperlipidemia Hypertension Hypokalemia Insulin dependent diabetes mellitus Complicated by peripheral neuropathy and neuropathy. MSSA bacteremia (~10/2018) Secondary to left 1st toe infection. Osteomyelitis Requiring amputation of all toes on the right foot over time as well as left 1st toe amputation. Peripheral arterial disease Status post right lower extremity balloon angioplasty. Surgical History Surgical History Amputation toe :Transmetatarsal amputations of all toes on the right foot, some requiring further debridement with split-thickness graft per Dr. Cartagena. :Trans phalangeal amputation of the left 1st toe to the proximal phalanges. History of coronary artery bypass graft (~2004) 4 vessel bypass. 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 Cartagena, several requiring skin grafts. Family History Family History Mother Family history of lung cancer Patient's mother is Father Family history of throat cancer Sibling Heart disease
[2021-12-04 23:09] LABS: Band Neutrophils Percent 11 % (0-6); Lymphocytes Absolute Manual 0.39 K/mm3 (1.1-4.5); Monocytes Absolute Manual 0.97 K/mm3 (0.1-0.90); Monocytes Percent Manual 5 % (3-9); Myelocytes Percent 1 %; Neutrophils Absolute Manual 17.94 K/mm3 (1.3-6.7); Neutrophils Percent Manual 81 % (46-73); Platelet Estimate Adequate (Adequate); Total Cells Counted 100
--- NOTE | 2021-12-04 23:10 | PC.NURSE ---
Assumed care of pt at this time. Pt resting on stretcher, appears lethargic. Pt arousable to name. Pt denies CP at this time.
[2021-12-04 23:23] LABS: Alanine Aminotransferase 34 U/L (4-50); Albumin Level 4.1 g/dL (3.5-5.1); Alkaline Phosphatase 117 U/L (38-126); Anion Gap 28 mmol/L (8-16); Aspartate Amino Transferase 101 U/L (17-59); Bilirubin,Total 1.7 mg/dL (0.2-1.3); Blood Urea Nitrogen 48 mg/dL (9-20); Calcium 8.3 mg/dL (8.4-10.2); Carbon Dioxide 12 mmol/L (22-30); Chloride 80 mmol/L (98-107); Estimated CRCL calculation 24 ml/min; Estimated Glomerular Filt Rate 23; Glucose 675 mg/dL (65-110); Phosphorus 3.8 mg/dL (2.5-4.5); Potassium 3.5 mmol/L (3.4-5.0); Sodium 120 mmol/L (137-145)
[2021-12-04 23:24] LABS: Lactic Acid Reflex 4.6 mmol/L (0.7-2.1)
[2021-12-04 23:28] VITALS: O2SAT 91
[2021-12-04 23:29] VITALS: BP 119/59; PULSE 122; RESP 32; O2SAT 92
[2021-12-04 23:47] LABS: Influenza A QL RT-PCR Negative (Negative); Influenza B QL RT-PCR Negative (Negative); SARS-CoV-2 RNA PCR Negative
--- NOTE | 2021-12-04 23:47 | PM.IMHP ---
H&P: HPI History of Present Illness Date/Time: 12/04/21 23:47 Chief Complaint: Shortness of breath. Narrative: This is a 76-year-old male with past medical history significant for coronary artery disease, status post coronary artery bypass grafting, hypertension, dyslipidemia, type 2 diabetes mellitus, diabetic foot, peripheral arterial disease. Patient came straight from airport after arriving from [place] where he was vacationing prior to leaving patient was having cold-like symptoms which progressively got worse over the course of the last 3 weeks or so however patient denies any fevers, rigors or chills, he does have chest congestion and cough which is nonproductive, poor appetite, generalized malaise, body aches and pains, denies any chest pain, denies leg swelling, denies nausea ,vomiting ,abdominal pain or diarrhea. Most of the history has been obtained for upon reviewing medical records and who is at bedside patient has intermittently answer some questions. Preliminary workup was significant for lactic acid of 4.5, blood glucose of 600, sodium 120, creatinine was 2.7 troponin was 16, bilirubin 1.7 chest x-ray was significant for lobar infiltrates. In emergency room patient had episode of desaturation to 70%. Patient has been admitted for further evaluation, management and treatment. Review of Systems Review of Systems: Patient was not able to provide much history given his acute illness. ROS unobtainable: Yes unobtainable due to mental status (Lethargy) [facility] Past Medical History Medical History Anemia Arthritis Chronic kidney disease, stage 3 Baseline creatinine as 1.3 and 1.60. Coronary artery disease Status post CABG in 2005. Diabetic infection of right foot History of amputation of toe Hyperlipidemia Hypertension Hypokalemia Insulin dependent diabetes mellitus Complicated by peripheral neuropathy and neuropathy. MSSA bacteremia (~10/2018) Secondary to left 1st toe infection. Osteomyelitis Requiring amputation of all toes on the right foot over time as well as left 1st toe amputation. Peripheral arterial disease Status post right lower extremity balloon angioplasty. Surgical History Surgical History Amputation toe :Transmetatarsal amputations of all toes on the right foot, some requiring further debridement with split-thickness graft per Dr. Cartagena. :Trans phalangeal amputation of the left 1st toe to the proximal phalanges. History of coronary artery bypass graft (~2004) 4 vessel bypass. 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 Cartagena, several requiring skin grafts. Family History Family History Mother Family history of lung cancer Patient's mother is Father Family history of throat cancer Sibling Heart disease Social History Social History Social History: Surrogate decision maker: Katharina Paez, spouse. Code status: Full code. Smoking status: Never smoker Second hand tobacco smoke exposure: No Alcohol intake: never Alcohol use details: rarely Substance use: never Substance use type: does not use Additional living arrangements comments: Lives with his spouse in [place]. 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 Sexual Orientation (if Verbalized by the Patient): Straight or Heterosexual Spir
[2021-12-04] MEDS: HEPARIN SODIUM 5,000 UNITS/ML VIAL 4000 UNITS IV PUSH (23:57)
[2021-12-05] VITALS (29 sets, daily range): BP systolic 97–137; BP diastolic 50–99; PULSE 106–144; RESP 13–34; TEMP 35.7–36.9; O2SAT 76–100; BMI 25.0
[2021-12-05 00:12] LABS: INR 1.4
[2021-12-05 00:13] LABS: Partial Thromboplastin Time 38.4 SECONDS (22.3-36.8)
[2021-12-05] MEDS: HEPARIN SOD/D5W 100 UNITS/ML 25,000 UNITS/250 ML BAG 10 UNITS IV CONT (00:18)
[2021-12-05] MEDS: ONDANSETRON INJ 4 MG/2 ML VIAL (00:20)
[2021-12-05 00:29] LABS: Glucose Point of Care > 500 mg/dl (65-105)
--- NOTE | 2021-12-05 00:33 | PC.NURSE ---
0018- Pt upright on stretcher, vomiting. Denies CP still. EDP Memo notified, VORB 4mg Zofran IV. 0028 - Pts O2 saturation dropped to 75% on 3L, pt placed on 15L NC. Respiratory and EDP notified. 0034 - respiratory at bedside with BiPap
[2021-12-05] MEDS: INSULIN HUMAN REGULAR (*BKC) 100 UNITS/ML 9 UNITS IV PUSH (00:40)
[2021-12-05] MEDS: INSULIN HUMAN REGULAR (*BKC) 100 UNITS in SODIUM CHLORIDE 0.9% IV 99 ML 12.3 UNITS IV CONT (00:46)
--- NOTE | 2021-12-05 01:05 | ADMGEN ---
This patient, Chris Handley, was admitted to Intensive Care Unit-6. Patient/family oriented to hospital policies and general routines including ID bracelet, bed and alarms, visiting hours, pain management, procedures, bathroom and other care routines, personal items, smoking policy, room service/diet, and visiting hours. Information on how to activate the Rapid Response Team has been discussed. Patient/Family are encouraged to report perceived risks to care and to ask questions if they do not understand what they are told or what they should do.
[2021-12-05 01:29] LABS: Glucose Point of Care > 500 mg/dl (65-105)
[2021-12-05] MEDS: INSULIN HUMAN REGULAR (*BKC) 100 UNITS in SODIUM CHLORIDE 0.9% IV 99 ML 11.2 UNITS IV CONT (01:45)
[2021-12-05 01:50] LABS: Reflex Lactic Acid Yes or No Add Lactic
[2021-12-05 02:12] LABS: Anion Gap 25 mmol/L (8-16); Blood Urea Nitrogen 46 mg/dL (9-20); Calcium 7.5 mg/dL (8.4-10.2); Carbon Dioxide 12 mmol/L (22-30); Chloride 88 mmol/L (98-107); Estimated CRCL calculation 26 ml/min; Estimated Glomerular Filt Rate 25; Potassium 2.8 mmol/L (3.4-5.0); Sodium 125 mmol/L (137-145)
[2021-12-05 02:13] LABS: Glucose 615 mg/dL (65-110)
[2021-12-05] MEDS: SODIUM CHLORIDE 0.9% IV 1,000 ML 150 ML IV CONT (02:20)
[2021-12-05 03:16] LABS: Lactic Acid 4.5 mmol/L (0.7-2.1)
[2021-12-05 03:17] LABS: Glucose 565 mg/dL (65-110)
[2021-12-05 03:44] LABS: Glucose Point of Care > 500 mg/dl (65-105)
[2021-12-05 03:44] LABS: Glucose Point of Care > 500 mg/dl (65-105)
[2021-12-05 04:43] LABS: Hematocrit 38.2 % (42.0-52.0); Hemoglobin 12.6 g/dL (14.0-18.0); Mean Corpuscular Volume 87.8 fl (80-100); Mean Platelet Volume 10.7 fl (7.4-10.4); Platelet Count Result 341 k/mm3 (150-375); Red Blood Count 4.35 M/mm3 (4.6-6.20); Red Cell Distribution Width 13.1 % (11.5-14.5); White Blood Count 22.9 K/mm3 (4.5-10.0)
[2021-12-05 04:49] LABS: Glucose Point of Care > 500 mg/dl (65-105)
[2021-12-05 04:53] LABS: Band Neutrophils Percent 11 % (0-6); Lymphocytes Absolute Manual 0.45 K/mm3 (1.1-4.5); Monocytes Absolute Manual 0.22 K/mm3 (0.1-0.90); Monocytes Percent Manual 1 % (3-9); Neutrophils Absolute Manual 22.21 K/mm3 (1.3-6.7); Neutrophils Percent Manual 86 % (46-73); Platelet Estimate Adequate (Adequate); Total Cells Counted 100
[2021-12-05 04:54] LABS: Anisocytosis 1+ (NORMAL); Ovalocytes 1+ (NORMAL)
[2021-12-05 05:03] LABS: Anion Gap 19 mmol/L (8-16); Blood Urea Nitrogen 51 mg/dL (9-20); Calcium 7.2 mg/dL (8.4-10.2); Carbon Dioxide 15 mmol/L (22-30); Chloride 88 mmol/L (98-107); Estimated CRCL calculation 28 ml/min; Estimated Glomerular Filt Rate 28; Glucose 515 mg/dL (65-110); Potassium 2.8 mmol/L (3.4-5.0); Sodium 122 mmol/L (137-145)
[2021-12-05] MEDS: INSULIN HUMAN REGULAR (*BKC) 100 UNITS in SODIUM CHLORIDE 0.9% IV 99 ML 25 UNITS IV CONT (06:00)
[2021-12-05 06:03] LABS: Glucose Point of Care 417 mg/dl (65-105)
[2021-12-05 06:44] LABS: Partial Thromboplastin Time 55.8 SECONDS (22.3-36.8)
[2021-12-05 06:52] LABS: Glucose Point of Care 383 mg/dl (65-105)
[2021-12-05] MEDS: HEPARIN SODIUM 5,000 UNITS/ML VIAL 3500 UNITS IV PUSH ×2 (07:50→15:13)
[2021-12-05 07:54] LABS: Glucose Point of Care 349 mg/dl (65-105)
[2021-12-05] MEDS: POTASSIUM CHLORIDE 20 MEQ PACKET (FOR LIQUID) 40 MEQ PO ×2 (08:21→15:18)
[2021-12-05] MEDS: POTASSIUM CHLORIDE INJ 40 MEQ in SODIUM CHLORIDE 0.9% IV 500 ML 130 MEQ IVPB (08:22)
--- NOTE | 2021-12-05 08:34 | WPDCNINT ---
Assessment and Plan Assessment and plan (1) Acute coronary syndrome: Code(s): I24.9 - Acute ischemic heart disease, unspecified Status: Acute Assessment and Plan: Acute coronary syndrome, EKG showed ST-elevation in V2 and V3 with no reciprocal changes, initial troponin was 16.0 followed by 10.80 and 10.70. -patient was started on heparin infusion per Cardiology -patient does have acute on chronic kidney disease -cardiology has been consulted and aware -patient denies any chest pain but does have shortness of breath and history of diabetes and could present in an abnormal manner -recheck EKG, start rectal aspirin (2) DKA, type 2: Code(s): E11.10 - Type 2 diabetes mellitus with ketoacidosis without coma Status: Acute Assessment and Plan: Patient with hyperglycemia, blood sugars of 675 on admission with an anion gap of 28 -patient was given 2 L IV fluid bolus in the ER and started on insulin infusion and maintenance IV fluids per DKA protocol -continue NPO -will obtain hemoglobin A1c (3) Severe sepsis: Code(s): A41.9 - Sepsis, unspecified organism; R65.20 - Severe sepsis without septic shock Status: Acute Assessment and Plan: Patient presented with worsening shortness of breath and upper respiratory symptoms last 3 weeks. Initial lactic acid was 4.5, WBC count of 19.5, acute on chronic kidney disease, DKA -patient given 2 L of IV fluids in the ER, -will give additional 500 mL low -recheck lactic acid -blood pressures have been stable -blood and urine cultures have been obtained -source of infection is lungs -continue vancomycin and Zosyn -renally dosed (12/05/2021) (4) Pneumonia: Code(s): J18.9 - Pneumonia, unspecified organism Status: Acute Assessment and Plan: Patient presented with upper respiratory tract infection, increasing shortness of breath over the last 3 weeks -in severe sepsis on presentation to the ED -chest x-ray showed patchy airspace opacity in the mid and lower lung zones bilaterally consistent with pneumonia -antibiotics as above (5) Acute respiratory failure: Code(s): J96.00 - Acute respiratory failure, unspecified whether with hypoxia or hypercapnia Status: Acute Assessment and Plan: Patient did have an emesis in the ER, and desaturated, currently on non-rebreather with adequate O2 sats, -continue antibiotics, added bronchodilators -influenza A and B were negative -SARS-CoV-2 PCR was negative on admission -continue supplemental oxygen -will check urine Legionella antigen and urine pneumococcal antigen (6) Acute hyponatremia: Code(s): E87.1 - Hypo-osmolality and hyponatremia Status: Acute Assessment and Plan: Hyponatremia -gradually improving with IV fluids -continue to monitor (7) Hypokalemia: Code(s): E87.6 - Hypokalemia Status: Acute Assessment and Plan: Likely due to insulin infusion, will replace (8) Hyperlipidemia: Qualifiers: Hyperlipidemia type: unspecified Qualified Code(s): E78.5 - Hyperlipidemia, unspecified Code(s): E78.5 - Hyperlipidemia, unspecified Status: Chronic Assessment and Plan: Patient on lovastatin at home, p.o. due to DKA, will resume once starts p.o. intake (9) Acute renal failure superimposed on stage 3 chronic kidney disease: Code(s): N17.9 - Acute kidney failure, unspecified; N18.30 - Chronic kidney disease, stage 3 unspecified Status: Acute Assessment and Plan: Patient has a history of chronic stage 3 kidney disease, baseline creatinine 1.3-1.6 -currently in severe sepsis, creatinine on admission was 2.7, this morning it is 2.30 -continue maintenance IV fluids -will obtain urine lytes and renal ultrasound -check CK levels and urine eosinophils Additional Plan Discussed with patient updated him with his condition and plan of care. I did discuss with him that he has pneumonia for which he is getting a
[2021-12-05] MEDS: IPRATROPIUM BR 0.02% INH SOLN 0.5 MG/2.5 ML VIAL INHALATION ×3 (08:36→20:57)
[2021-12-05] MEDS: LEVALBUTEROL NEB 1.25 MG/3 ML 0.63 MG INHALATION ×3 (08:36→20:57)
[2021-12-05 08:42] LABS: Add Urine Microscopic? YES; Amorphous Sediment Urine Few; Appearance Urine Cloudy (Clear); Bacteria Urine Trace /hpf; Bilirubin Urine Negative (Negative); Blood Urine 2+ (Negative); Color Urine Amber (Yellow); Glucose Urine UA 1+ mg/dL (Negative); Ketones Urine Trace mg/dL (Negative); Leukocyte Esterase Ur Trace LEU/UL (Negative); Mucus Urine Rare /lpf; Nitrate Urine Negative (Negative); Protein Urine 2+ mg/dL (Negative); Specific Grav Ur 1.025 (1.001-1.035); WBC Clumps Urine Present /HPF; WBC Urine 21-30 /hpf
--- NOTE | 2021-12-05 08:50 | ECG_ITS ---
Measurements Intervals [place] Rate: 115 P: 29 CA: 153 QRS: 11 QRSD: 93 T: 107 QT: 281 QTc: 389 Interpretive Statements SINUS TACHYCARDIA WITH FREQUENT SUPRAVENTRICULAR PREMATURE COMPLEXES NONSPECIFIC T-WAVE ABNORMALITY COMPARED TO ECG 12/04/2021 22:54:[address] SEGMENT ELEVATION IS RESOLVING Electronically Signed On 12-05-2021 16:22:19 CDT by Law Germain M.D.
[2021-12-05] MEDS: LACTATED RINGERS 500 ML 999 ML IV CONT (09:07)
--- NOTE | 2021-12-05 09:07 | PM.IMPN ---
Progress Note: A&P Assessment and Plan (1) Severe sepsis: Code(s): A41.9 - Sepsis, unspecified organism; R65.20 - Severe sepsis without septic shock Status: Acute Assessment and Plan: Present on admission with respiratory failure, ALESSANDRA, leukocytosis with bandemia, lactic acidosis and DKA. Patient was fluid resuscitated in the ED. Blood in urine cultures obtained. Chest x-ray consistent with pneumonia. Continue broad-spectrum IV antibiotics. Blood pressure remains stable. Patient recently was in [place] in [facility]. Consider coccidioidomycosis. White count is higher but the lactic acid level trending downward. Continue IV antibiotics. Proceed with testing for coccidiosis. Add Diflucan (QTc 389). Spoke with Pathology and appropriate testing ordered for coccidioidomycosis. Discussed with pinmaker. (2) Acute coronary syndrome: Code(s): I24.9 - Acute ischemic heart disease, unspecified Status: Acute Assessment and Plan: Acute coronary syndrome with EKG showing ST-elevation in V2 and V3 with no reciprocal changes and Trop to 16 -> 10.7 consistent with STEMI. Cardiology consulted. Currently on Heparin gtt. Add ASA rectal. Repeat EKG. Check Echo. (3) Acute respiratory failure: Code(s): J96.00 - Acute respiratory failure, unspecified whether with hypoxia or hypercapnia Status: Acute Assessment and Plan: Patient did have an emesis in the ER with desaturated. He was placed on BiPAP but now changed to non-rebreather mask. Related to the PNA. Influenza A and B were negative; SARS-CoV-2 PCR was negative. As above. Check sputum for bacterial source. Agree with urine Legionella antigen and urine pneumococcal antigen. Continue supplemental O2 and monitor closely since he is so fatigued. (4) ALESSANDRA (acute kidney injury): Code(s): N17.9 - Acute kidney failure, unspecified Status: Acute Assessment and Plan: Baseline Cr 1.3-1.6. Cr 2.7 on admission. Suspect related to infection, ATN, DKA and dehydration. Continue IV fluids with DKA protocol. Continue to monitor. [employer] secured. Check renal US.. Urine lytes ordered. (5) DKA, type 2: Code(s): E11.10 - Type 2 diabetes mellitus with ketoacidosis without coma Status: Acute Assessment and Plan: Patient with hyperglycemia with blood sugars of 675 on admission with an anion gap of 28. Some of the anion gap may be related to lactic acidosis as well. Patient was fluid resuscitated in the ED. He was started on DKA protocol with IV fluids and insulin drip. Hemoglobin A1c was ordered but his last A1c was 11.5 in October to show poor compliance prior to admission. (6) Pneumonia: Code(s): J18.9 - Pneumonia, unspecified organism Status: Acute Assessment and Plan: Patient presented with URI symptoms and and increasing shortness of breath. CXR on admisison reviewed personally showing bilateral airspace disease in the LLL and RUL. Continue abx and anti-fungal. (7) Hypokalemia: Code(s): E87.6 - Hypokalemia Status: Acute Assessment and Plan: Potassium dropped to 2.6 related to treatment of DKA and underlying potassium depletion. Continue to replace as needed. (8) Acute hyponatremia: Code(s): E87.1 - Hypo-osmolality and hyponatremia Status: Acute Assessment and Plan: Hyponatremia with sodium at 120 on admission. Suspect related to the hyperglycemia. Agree with testing for legionella. Level improving with declining glucose values and with IV fluids. Continue to monitor. (9) Lethargy: Code(s): R53.83 - Other fatigue Status: Acute Assessment and Plan: Related to above (10) CAD (coronary artery disease): Code(s): I25.10 - Atherosclerotic heart disease of [place] coronary artery without angina pectoris Status: Acute Assessment and Plan: Patient with known CAD s/p CABG. As above. Add ASA. Hold statin the
[2021-12-05] MEDS: PROMETHAZINE HCL 25 MG/ML AMPUL 12.5 MG IV PUSH (09:10)
[2021-12-05 09:14] LABS: Lactic Acid Reflex 3.5 mmol/L (0.7-2.1)
[2021-12-05] MEDS: INSULIN HUMAN REGULAR (*BKC) 100 UNITS in SODIUM CHLORIDE 0.9% IV 99 ML 23 UNITS IV CONT (09:14)
[2021-12-05 09:19] LABS: Glucose Point of Care 292 mg/dl (65-105)
[2021-12-05 09:19] LABS: Anion Gap 12 mmol/L (8-16); Blood Urea Nitrogen 53 mg/dL (9-20); Calcium 7.2 mg/dL (8.4-10.2); Carbon Dioxide 22 mmol/L (22-30); Chloride 92 mmol/L (98-107); Estimated CRCL calculation 27 ml/min; Estimated Glomerular Filt Rate 27; Glucose 268 mg/dL (65-110); Potassium 2.6 mmol/L (3.4-5.0); Sodium 126 mmol/L (137-145)
[2021-12-05 09:50] LABS: Creatine Kinase 83 U/L (55-170)
[2021-12-05] MEDS: ASPIRIN 81 MG ENTERIC TABLET PO (09:53)
[2021-12-05] MEDS: KCL 20MEQ/0.9% SOD CHL 1,000 ML 150 ML IV CONT (09:58)
[2021-12-05] MEDS: KCL 20 MEQ/D5/0.45% SOD CHL 1,000 ML 150 ML IV CONT (09:58)
[2021-12-05 10:06] LABS: Hemoglobin A1C 11.4 % (<5.7)
[2021-12-05 10:08] LABS: Eosinophil Urine None Seen % (None Seen)
[2021-12-05 10:08] LABS: Glucose Point of Care 247 mg/dl (65-105)
[2021-12-05 10:30] LABS: Creatinine Urine 84.8 mg/dL
[2021-12-05 10:35] LABS: Potassium Urine Random 36.7 meq/L; Sodium Urine Random 10 meq/L
[2021-12-05] MEDS: FLUCONAZOLE 400 MG/NACL 200 ML 400 MG/200 ML BAG 100 MG IVPB (11:12)
[2021-12-05 11:26] LABS: Glucose Point of Care 229 mg/dl (65-105)
--- NOTE | 2021-12-05 12:01 | PM.CNCAR ---
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 He presents to the hospital feeling unwell for several days in the state of diabetic ketoacidosis and acute renal failure. He is not having any obvious chest pain event but his ECG appears to show that an anterior wall infarction has occurred his troponin levels are consistent with this and he is obviously critically ill in this setting. He should be placed on aspirin and clopidogrel as well as he I believe he is already anticoagulated with heparin. Patient is modestly hypotensive and so beta-blockers and ARB star not being administered at this time. We will recommend aggressive supportive care at this time but he is not a reasonable candidate for angiographic evaluation at this time. The patient's ketoacidosis and acute renal failure preclude that at this time. He is not having an acute anterior wall infarction this infarction I believe is already occurred while he was visiting in [place]. Echocardiogram will be done to look at his left ventricular systolic function at this time. Depending on his clinical course particularly depending on his renal function we will determine if an invasive or noninvasive strategy would be appropriate to evaluate him after this event. It also should be considered that angiography in this gentleman would be a higher risk endeavor that may not be prudent at this hospital. Law Germain MD [facility] History of Present Illness History of Present Illness Consult date/time: 12/05/21 12:01 Consult reason: chest pain Reason For Visit: Sepsis,Pneumonia,ALESSANDRA,NSTEMI,DKA,Hyponatremia Narrative: This is a 76-year-old man I am seeing at the request of the hospitalist he is in the ICU after being and admitted from the emergency room last evening. The patient is unknown to me prior to this encounter. He was out of town in [facility] area visiting family members and along with his daughters and they flew back to [place] yesterday. He states that he was feeling unwell for several days while before he travels home with symptoms of nausea and an inability to keep down any nutrition or fluid for several days at least. He was not having any symptoms of chest pain pressure or heaviness he felt that these symptoms and generalized weakness he denies any fever or shaking chills. Upon arrival to the emergency department he was found to be very ill-appearing gentleman with ECG that demonstrated sinus tachycardia with anterior ST and T-wave abnormalities with some ST depression in leads V2 and V3 but no reciprocal depression. He again was not having any chest pain when laboratory data started coming back it was found that he was obviously in a state of diabetic ketoacidosis with a blood glucose level of about 670 with acute renal failure as well. He had a troponin level it was significantly elevated at 16 the 2nd and 3rd levels have come back at just over 10. He was admitted for critical care to ICU room 6. The patient other than feeling generally weak has no specific complaints at this time. He once again denies remembering having any recent chest pain event. He is known to have coronary artery disease as well as severe peripheral vascular disease. According to the records he was found have severe coronary disease back in 2004 and underwent bypass surgery out at [facility]. 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 He felt better following his bypass operation followed with his harbor pilot for maybe a couple of years and after that stopped going back for follow-up. He is known to willams
[2021-12-05 12:16] LABS: Glucose Point of Care 241 mg/dl (65-105)
[2021-12-05 13:01] LABS: Glucose Point of Care 180 mg/dl (65-105)
[2021-12-05] MEDS: LIDOCAINE HCL 1% PF INJ 5 ML VIAL INFILTRATE (13:15)
[2021-12-05] MEDS: INSULIN HUMAN REGULAR (*BKC) 100 UNITS in SODIUM CHLORIDE 0.9% IV 99 ML 17.7 UNITS IV CONT (14:09)
[2021-12-05] MEDS: SODIUM CHLOR 3% 15 ML NEB (RESPIRATORY THERAPY) 6 ML INHALATION (14:12)
[2021-12-05 14:17] LABS: Anion Gap 7 mmol/L (8-16); Blood Urea Nitrogen 51 mg/dL (9-20); Calcium 6.8 mg/dL (8.4-10.2); Carbon Dioxide 24 mmol/L (22-30); Chloride 97 mmol/L (98-107); Estimated CRCL calculation 29 ml/min; Estimated Glomerular Filt Rate 29; Glucose 154 mg/dL (65-110); Potassium 3.2 mmol/L (3.4-5.0); Sodium 128 mmol/L (137-145)
[2021-12-05] MEDS: CLOPIDOGREL BISULFATE 75 MG TABLET PO (14:24)
[2021-12-05 14:31] LABS: Partial Thromboplastin Time 58.2 SECONDS (22.3-36.8)
[2021-12-05 14:33] LABS: Glucose Point of Care 166 mg/dl (65-105)
[2021-12-05 15:05] LABS: Glucose Point of Care 167 mg/dl (65-105)
[2021-12-05] MEDS: INSULIN GLARGINE (*BKC) 100 UNITS/ML 40 UNITS SUB-Q (15:19)
[2021-12-05] MEDS: SODIUM CHLORIDE 0.9% IV 1,000 ML 75 ML IV CONT (15:21)
[2021-12-05] MEDS: LOVASTATIN 20 MG TABLET 40 MG PO (16:02)
[2021-12-05 17:06] LABS: Glucose Point of Care 120 mg/dl (65-105)
[2021-12-05] MEDS: ACETAMINOPHEN 325 MG TABLET 650 MG PO (18:53)
[2021-12-05] MEDS: HEPARIN SOD/D5W 100 UNITS/ML 25,000 UNITS/250 ML BAG 14 UNITS IV CONT (20:46)
[2021-12-05 21:18] LABS: Glucose Point of Care 189 mg/dl (65-105)
[2021-12-05] MEDS: CENTRAL LINE FLUSH 10 ML IV PUSH (22:36)
[2021-12-06] VITALS (25 sets, daily range): BP systolic 101–138; BP diastolic 63–90; PULSE 11–120; RESP 16–26; TEMP 36.6–37.2; O2SAT 93–99; BMI 26.3
[2021-12-06] MEDS: LEVALBUTEROL NEB 1.25 MG/3 ML 0.63 MG INHALATION ×4 (03:00→19:38)
[2021-12-06] MEDS: IPRATROPIUM BR 0.02% INH SOLN 0.5 MG/2.5 ML VIAL INHALATION ×4 (03:00→19:38)
[2021-12-06 03:30] LABS: Hematocrit 33.6 % (42.0-52.0); Hemoglobin 11.4 g/dL (14.0-18.0); Mean Corpuscular HGB Conc 33.9 g/dl (32-36); Mean Corpuscular Hemoglobin 29.5 pg (26-34); Mean Corpuscular Volume 86.8 fl (80-100); Mean Platelet Volume 10.5 fl (7.4-10.4); Platelet Count Result 341 k/mm3 (150-375); Red Blood Count 3.87 M/mm3 (4.6-6.20); Red Cell Distribution Width 13.2 % (11.5-14.5); White Blood Count 25.3 K/mm3 (4.5-10.0)
[2021-12-06 03:42] LABS: Partial Thromboplastin Time 83.7 SECONDS (22.3-36.8)
[2021-12-06 03:43] LABS: Alanine Aminotransferase 20 U/L (4-50); Albumin Level 2.8 g/dL (3.5-5.1); Alkaline Phosphatase 79 U/L (38-126); Anion Gap 11 mmol/L (8-16); Aspartate Amino Transferase 55 U/L (17-59); Bilirubin,Total 0.9 mg/dL (0.2-1.3); Blood Urea Nitrogen 49 mg/dL (9-20); Calcium 7.1 mg/dL (8.4-10.2); Carbon Dioxide 18 mmol/L (22-30); Chloride 97 mmol/L (98-107); Estimated CRCL calculation 34 ml/min; Estimated Glomerular Filt Rate 35; Glucose 289 mg/dL (65-110); Magnesium 2.3 mg/dL (1.6-2.3); Phosphorus 2.1 mg/dL (2.5-4.5); Potassium 3.6 mmol/L (3.4-5.0); Sodium 126 mmol/L (137-145)
[2021-12-06 04:12] LABS: Band Neutrophils Percent 9 % (0-6); Lymphocytes Absolute Manual 0.25 K/mm3 (1.1-4.5); Monocytes Absolute Manual 0.25 K/mm3 (0.1-0.90); Monocytes Percent Manual 1 % (3-9); Neutrophils Absolute Manual 24.79 K/mm3 (1.3-6.7); Neutrophils Percent Manual 89 % (46-73); Platelet Estimate Adequate (Adequate); Total Cells Counted 100
[2021-12-06 04:13] LABS: Anisocytosis 1+ (NORMAL)
[2021-12-06] MEDS: CENTRAL LINE FLUSH 10 ML IV PUSH ×3 (05:04→21:30)
[2021-12-06] MEDS: SODIUM CHLORIDE 0.9% IV 1,000 ML 75 ML IV CONT ×2 (05:04→22:27)
--- NOTE | 2021-12-06 06:00 | ECHO_ITS ---
Patient Info Name: Chris Handley Age: 76 years : 1945 Gender: Male Ht: 72 in Wt: 194 lbs BSA: 2.13 m2 HR: 119 bpm BP: 120 / 67 mmHg Heart Rhythm: Sinus Rhythm, Tachycardia Exam Date: 12/06/2021 12:17 PM Exam Location: [facility] Pulmonary Patient Status: Inpatient Admit Date: 12/05/2021 Staff Ordering Physician: Karl Hampton MD Post Acute Care Nurse Practitioner: Khang Richardson, KAYCS, RT Attending Provider: Queenie Alanis MD Referring Physician: Memo ROSS; Exam Type: CA echo dop color flow w con Study Info Indications I21.4 - Non-ST elevation (NSTEMI) myocardial infarction Complete two-dimensional, color flow and Doppler transthoracic echocardiogram is performed with contrast to opacify the left ventricle and to improve the deliniation of the left ventricle endocardial borders. Summary 1. Mild left ventricular enlargement with moderate LVH. Mild to moderate hypokinesis of the base of the heart with severe hypokinesis the been distal segments, suggestive of Takotsubo cardiomyopathy. In addition is a focal area mid/distal anterolateral akinesis. EF measured 25%, viusual EF 25-30%. Grade 2 diastolic dysfunction. 2. Left atrial chamber dimension is mildly enlarged. 3. Dilated inferior vena cava with <50% collapse upon inspiration consistent with elevated right atrial pressure, 15 mmHg. 4. No significant valve disease. 5. Sinus tachycardia. Left Ventricle Left ventricular chamber dimension is mildly enlarged. Left ventricular systolic function is severely reduced, estimated at 25-30%. There is mildly increased left ventricular wall thickness. Left ventricular septal wall motion is normal. The left ventricular diastolic function is grade II diastolic dysfunction. Right Ventricle Right ventricular chamber dimension is normal. Right ventricular systolic function is normal. Left Atria Left atrial chamber dimension is mildly enlarged. Right Atria Right atrial chamber dimension is normal. Aortic Valve The aortic valve is trileaflet. There is mild aortic valve sclerosis. There is no aortic valve stenosis. There is no aortic valve regurgitation. Pulmonic Valve The pulmonic valve is normal. There is no pulmonic valve stenosis. There is no pulmonic regurgitation. Mitral Valve The mitral valve has thickened leaflets. There is no mitral valve stenosis. There is no mitral valve regurgitation. Tricuspid Valve The tricuspid valve leaflets are normal. There is no significant tricuspid valve stenosis. There is no tricuspid valve regurgitation. No pulmonary hypertension, estimated pulmonary arterial systolic pressure is Empty. Pericardium/Pleural The pericardium appears normal. There is no pericardial effusion. Inferior Vena Cava Dilated inferior vena cava with <50% collapse upon inspiration consistent with elevated right atrial pressure, 15 mmHg. Aorta The aortic root size at the sinus of Valsalva is normal. The prox ascending aorta size is normal. Left Ventricular Outflow Tract Name Value Normal LVOT 2D LVOT Diameter 2.04 cm LVOT Doppler LVOT Peak Gradient 2 mmHg
[2021-12-06] MEDS: FLUCONAZOLE 200 MG/NACL 100 ML 200 MG/100 ML BAG 100 MG IVPB (08:25)
[2021-12-06] MEDS: CLOPIDOGREL BISULFATE 75 MG TABLET PO (08:27)
[2021-12-06] MEDS: LOVASTATIN 20 MG TABLET 40 MG PO (08:27)
[2021-12-06] MEDS: ASPIRIN 81 MG ENTERIC TABLET PO (08:27)
[2021-12-06] MEDS: INSULIN ASPART (*BKC) 100 UNITS/ML SUB-Q ×3 (08:28→17:48)
[2021-12-06 08:33] LABS: Glucose Point of Care 312 mg/dl (65-105)
[2021-12-06 08:34] LABS: Lactic Acid Reflex 1.9 mmol/L (0.7-2.1)
--- NOTE | 2021-12-06 09:24 | PM.IMPN ---
Progress Note: A&P Assessment and Plan (1) Severe sepsis: Code(s): A41.9 - Sepsis, unspecified organism; R65.20 - Severe sepsis without septic shock Status: Acute Assessment and Plan: Present on admission with respiratory failure, ALESSANDRA, leukocytosis with bandemia, lactic acidosis and DKA. Patient was fluid resuscitated in the ED. Chest x-ray consistent with pneumonia. Blood pressure soft at times but overall remains stable. Patient recently was in [place] in [facility]. Consider coccidioidomycosis. White count is higher to 25K but the lactic acid level normal now. BCx NGTD. UCx pending. Sputum Cx ordered. Appreciate air conditioning installer input. Continue broad-spectrum IV antibiotics and anti-fungal treatment. (2) Acute coronary syndrome: Code(s): I24.9 - Acute ischemic heart disease, unspecified Status: Acute Assessment and Plan: Acute coronary syndrome with EKG showing ST-elevation in V2 and V3 with no reciprocal changes and Trop to 16 -> 10.7 consistent with STEMI. Cardiology consulted and appreciate their input. Echo pending. EKG showing resolving of the acute findings. Remains on Heparin gtt. Continue ASA, Plavix and statin if able to pass swallow study. Having CP overnight so will repeat EKG and Trop. NTG prn. (3) Acute respiratory failure: Code(s): J96.00 - Acute respiratory failure, unspecified whether with hypoxia or hypercapnia Status: Acute Assessment and Plan: Patient did have an emesis in the ER with desaturated. He was placed on BiPAP but now changed to Venturi. He did require BiPAP overnight for hypoxia. Resp failure related to the PNA. Influenza A and B were negative; SARS-CoV-2 PCR was negative. Urine culture pending. BCx NGTD. Sputum ordered. Urine Legionella antigen and urine pneumococcal antigen pending. Consider aspiration given the clinical findings; speech therapy consult ordered. Continue supplemental O2 and monitor closely. (4) ALESSANDRA (acute kidney injury): Code(s): N17.9 - Acute kidney failure, unspecified Status: Acute Assessment and Plan: Baseline Cr 1.3-1.6. Cr 2.7 on admission. Suspect related to infection, ATN, DKA and dehydration. Renal US normal. Cr better at 1.9. DKA protocol completed. Continue IV fluids at lower rate. Continue to monitor. [employer] secured. (5) DKA, type 2: Code(s): E11.10 - Type 2 diabetes mellitus with ketoacidosis without coma Status: Acute Assessment and Plan: Patient with hyperglycemia with blood sugars of 675 on admission with an anion gap of 28. Some of the anion gap may be related to lactic acidosis as well. Patient was fluid resuscitated in the ED. He was started on DKA protocol with IV fluids and insulin drip. Hemoglobin A1c was 11.4 to show poor compliance prior to admission. Off insulin and lantus 40U given yesterday at 3pm. Add lantus today. Continue sliding scale. (6) Pneumonia: Code(s): J18.9 - Pneumonia, unspecified organism Status: Acute Assessment and Plan: Patient presented with URI symptoms and and increasing shortness of breath. CXR on admission showing bilateral airspace disease in the LLL and RUL. As above. Continue abx and anti-fungal. (7) Hypokalemia: Code(s): E87.6 - Hypokalemia Status: Acute Assessment and Plan: Potassium dropped to 2.6 related to treatment of DKA and underlying potassium depletion. Potassium better. Continue to replace as needed. (8) Acute hyponatremia: Code(s): E87.1 - Hypo-osmolality and hyponatremia Status: Acute Assessment and Plan: Hyponatremia with sodium at 120 on admission. Suspect related to the hyperglycemia. Agree with testing for legionella. Sodium level slowly improving with declining glucose values and with IV fluids. Continue to monitor. (9) Lethargy: Code(s): R53.83 - Other fatigue Status: Acute Assessment and Plan: Related to above
--- NOTE | 2021-12-06 09:25 | ECG_ITS ---
Measurements Intervals [place] Rate: 116 P: MA: 0 QRS: 14 QRSD: 100 T: 97 QT: 323 QTc: 449 Interpretive Statements ATRIAL FIBRILLATION WITH RAPID VENTRICULAR RESPONSE WITH ABERRANT CONDUCTION OR VENTRICULAR PREMATURE COMPLEXES NONSPECIFIC ST & T-WAVE ABNORMALITY COMPARED TO ECG 12/05/2021 09:06:56 ATRIAL FIBRILLATION NOW PRESENT ABERRANT CONDUCTION OF SUPRAVENTRICULAR BEAT(S) NOW PRESENT Electronically Signed On 12-07-2021 13:29:09 CDT by Ani Do M.D.
--- NOTE | 2021-12-06 11:31 | PCSTNOTE ---
Please refer to the Bedside Swallow Evaluation in the EMR. Please note, silent aspiration cannot be ruled out at bedside.
[2021-12-06] MEDS: INSULIN GLARGINE (*BKC) 100 UNITS/ML 40 UNITS SUB-Q (12:00)
[2021-12-06 12:01] LABS: Glucose Point of Care 315 mg/dl (65-105)
[2021-12-06] MEDS: PERFLUTREN LIPID MICROSPHERES 1.5 ML VIAL DILUTED TO 10 ML TOTAL VOLUME IV PUSH (12:32)
--- NOTE | 2021-12-06 12:33 | IVDEFINITY ---
Prior to administration of IV Definity the patient was educated on the risks and benefits of the imaging enhancing agent including potential adverse side effects. The patient verbalized understanding. Allergies were verified. No exclusion criteria were identified and at least one of the following inclusion criteria were met: 1) physician request, 2) patient technically difficult to image (per the [place] [employer]chocardi[employer] guidelines of two or more segments not discernable within the apical view), or 3) questionable left ventricular function. ?
--- NOTE | 2021-12-06 12:35 | WPDINTPN ---
Progress Note: A&P Assessment and Plan (1) Acute coronary syndrome: Code(s): I24.9 - Acute ischemic heart disease, unspecified Status: Acute Assessment and Plan: Acute coronary syndrome, EKG showed ST-elevation in V2 and V3 with no reciprocal changes, initial troponin was 16.0 followed by 10.80 and 10.70. -p remains on heparin infusion per Cardiology -patient does have acute on chronic kidney disease -cardiology has been consulted and aware -continue aspirin, statin, clopidogrel, will add small dose of beta-warner -repeat EKG this morning shows ST-elevation in anterior leads with no reciprocal changes, continue to monitor, troponins this morning are pending (2) DKA, type 2: Code(s): E11.10 - Type 2 diabetes mellitus with ketoacidosis without coma Status: Acute Assessment and Plan: Patient with hyperglycemia, blood sugars of 675 on admission with an anion gap of 28 -patient was transition to long-acting insulin and sliding scale insulin, -will have speech evaluate for swallowing -if he passes the swallow test will start him on diabetic diet -hemoglobin A1c is 11.4 this admission (3) Severe sepsis: Code(s): A41.9 - Sepsis, unspecified organism; R65.20 - Severe sepsis without septic shock Status: Acute Assessment and Plan: Patient presented with worsening shortness of breath and upper respiratory symptoms last 3 weeks. Initial lactic acid was 4.5, WBC count of 19.5, acute on chronic kidney disease, DKA. Patient received adequate IV fluids in the ER and ICU -lactic acid has normalized, continue maintenance IV fluids, -patient is hemodynamically stable -12/04/2021: Preliminary blood cultures are negative -12/05/2021: Urine cultures pending -source of infection is lungs -leukocytosis and bandemia persists -continue vancomycin and Zosyn -renally dosed (12/05/2021) -patient visited [place], Will cover wit Diflucan for coccidiomycosis (4) Pneumonia: Code(s): J18.9 - Pneumonia, unspecified organism Status: Acute Assessment and Plan: Patient presented with upper respiratory tract infection, increasing shortness of breath over the last 3 weeks -in severe sepsis on presentation to the ED -chest x-ray showed patchy airspace opacity in the mid and lower lung zones bilaterally consistent with pneumonia -antibiotics as above (5) Acute respiratory failure: Code(s): J96.00 - Acute respiratory failure, unspecified whether with hypoxia or hypercapnia Status: Acute Assessment and Plan: Patient did have an emesis in the ER, and desaturated, currently on non-rebreather with adequate O2 sats, -continue antibiotics, added bronchodilators -influenza A and B were negative -SARS-CoV-2 PCR was negative on admission -continue Ventimask and BiPAP at night - urine Legionella antigen and urine pneumococcal antigen pending (6) Acute hyponatremia: Code(s): E87.1 - Hypo-osmolality and hyponatremia Status: Acute Assessment and Plan: Hyponatremia -gradually improving with IV fluids -continue to monitor (7) Hypokalemia: Code(s): E87.6 - Hypokalemia Status: Acute Assessment and Plan: Potassium was normal (8) Hyperlipidemia: Qualifiers: Hyperlipidemia type: unspecified Qualified Code(s): E78.5 - Hyperlipidemia, unspecified Code(s): E78.5 - Hyperlipidemia, unspecified Status: Chronic Assessment and Plan: Will resume lovastatin (9) Acute renal failure superimposed on stage 3 chronic kidney disease: Code(s): N17.9 - Acute kidney failure, unspecified; N18.30 - Chronic kidney disease, stage 3 unspecified Status: Acute Assessment and Plan: Patient has a history of chronic stage 3 kidney disease, baseline creatinine 1.3-1.6 -currently in severe sepsis, creatinine on admission was 2.7, this morning it is 1.9 -continue maintenance IV fluids -12/05: Renal ultrasound - Normal kidneys witho
[2021-12-06] MEDS: HEPARIN SOD/D5W 100 UNITS/ML 25,000 UNITS/250 ML BAG 14 UNITS IV CONT (14:06)
[2021-12-06] MEDS: METOPROLOL TARTRATE 12.5 MG TABLET PO ×2 (14:08→21:29)
[2021-12-06] MEDS: PANTOPRAZOLE SODIUM IV 40 MG VIAL IV PUSH (14:08)
--- NOTE | 2021-12-06 16:05 | PM.PNCARD ---
Progress Note: A&P Assessment and Plan (1) Non-ST elevation ME (NSTEMI): Code(s): I21.4 - Non-ST elevation (NSTEMI) myocardial infarction Status: Acute Assessment and Plan: CAD, CABG in 2004, admitted with a non-STEMI from a recent ME. Patient appears hemodynamically stable and has had no chest pain or angina. Severe LV dysfunction; probably all new. Do not know if there is any component Tako-Tsubo cardiomyopathy or just severe multivessel CAD causing severe left ventricular dysfunction. No evidence of heart failure at this time. Continue medical therapy with aspirin, Plavix and heparin. Add high-dose statin, atorvastatin 40 mg daily Start carvedilol 3.125 mg b.i.d. Eventual ischemia evaluation once other medical issues have resolved/stabilized. (2) Severe sepsis: Code(s): A41.9 - Sepsis, unspecified organism; R65.20 - Severe sepsis without septic shock Status: Acute Assessment and Plan: improving, lactic acidosis resolved (3) Pneumonia: Code(s): J18.9 - Pneumonia, unspecified organism Status: Acute Assessment and Plan: on oxygen and antibiotics (4) Acute renal failure superimposed on stage 3 chronic kidney disease: Code(s): N17.9 - Acute kidney failure, unspecified; N18.30 - Chronic kidney disease, stage 3 unspecified Status: Acute Assessment and Plan: improving (5) DKA, type 2: Code(s): E11.10 - Type 2 diabetes mellitus with ketoacidosis without coma Status: Acute Assessment and Plan: resolved (6) PVD (peripheral vascular disease): Code(s): I73.9 - Peripheral vascular disease, unspecified Status: Acute Assessment and Plan: stable Subjective Date/time seen: 12/06/21 16:05 Interval history: FU CAD, recent ME; troponin 16 on admission for sepsis, pneumonia, DKA and ALESSANDRA. 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 He presents to the hospital feeling unwell for several days in the state of diabetic ketoacidosis and acute renal failure. He is not having any obvious chest pain event but his ECG appears to show that an anterior wall infarction has occurred his troponin levels are consistent with this and he is obviously critically ill in this setting. He should be placed on aspirin and clopidogrel as well as he I believe he is already anticoagulated with heparin. Patient is modestly hypotensive and so beta-blockers and ARB are not being administered at this time. We will recommend aggressive supportive care at this time but he is not a reasonable candidate for angiographic evaluation at this time. The patient's ketoacidosis and acute renal failure preclude that at this time. He is not having an acute anterior wall infarction this infarction I believe is already occurred while he was visiting in [place]. Echocardiogram will be done to look at his left ventricular systolic function at this time. Depending on his clinical course particularly depending on his renal function we will determine if an invasive or noninvasive strategy would be appropriate to evaluate him after this event. It also should be considered that angiography in this gentleman would be a higher risk endeavor that may not be prudent at this hospital. Date of Service 12/06/2021: Patient's main complaints are cough and fatigue, no chest pain.Blood sugars improving. Transitioning to long acting insulin; speech eval. Renal function improving.Echo pending. On O2 at 40% Venturi Mask. Trop down to 6. Lactic acid normalized. Remains on heparin gtt and antibiotics, IV fluids 75 cc/hr. Echo as below, severe LV dysfunction EF 25-30% with segmental wall motion abnormality but also some severe hypokinesis of the distal
[2021-12-06 17:47] LABS: Glucose Point of Care 301 mg/dl (65-105)
[2021-12-06 23:42] LABS: Glucose Point of Care 225 mg/dl (65-105)
[2021-12-07] VITALS (26 sets, daily range): BP systolic 98–128; BP diastolic 56–88; PULSE 88–108; RESP 18–27; TEMP 36.6–37.1; O2SAT 92–100
[2021-12-07 00:26] LABS: Pneumococcal Antigen Urine Detected (Not Detected)
[2021-12-07] MEDS: IPRATROPIUM BR 0.02% INH SOLN 0.5 MG/2.5 ML VIAL INHALATION ×4 (01:00→20:32)
[2021-12-07] MEDS: LEVALBUTEROL NEB 1.25 MG/3 ML 0.63 MG INHALATION ×4 (01:00→20:32)
[2021-12-07] MEDS: CENTRAL LINE FLUSH 10 ML IV PUSH ×3 (05:43→20:12)
[2021-12-07 07:27] LABS: Glucose Point of Care 219 mg/dl (65-105)
[2021-12-07] MEDS: PANTOPRAZOLE SODIUM IV 40 MG VIAL IV PUSH (08:16)
[2021-12-07] MEDS: FLUCONAZOLE 200 MG/NACL 100 ML 200 MG/100 ML BAG 100 MG IVPB (08:17)
[2021-12-07] MEDS: LOVASTATIN 20 MG TABLET 40 MG PO (08:35)
[2021-12-07] MEDS: ASPIRIN 81 MG ENTERIC TABLET PO (08:35)
[2021-12-07] MEDS: METOPROLOL TARTRATE 12.5 MG TABLET PO ×2 (08:35→20:11)
[2021-12-07 08:36] LABS: Hematocrit 30.9 % (42.0-52.0); Hemoglobin 10.6 g/dL (14.0-18.0); Mean Corpuscular HGB Conc 34.3 g/dl (32-36); Mean Corpuscular Hemoglobin 29.4 pg (26-34); Mean Corpuscular Volume 85.8 fl (80-100); Mean Platelet Volume 10.6 fl (7.4-10.4); Platelet Count Result 327 k/mm3 (150-375); Red Cell Distribution Width 13.5 % (11.5-14.5); White Blood Count 21.4 K/mm3 (4.5-10.0)
[2021-12-07] MEDS: CLOPIDOGREL BISULFATE 75 MG TABLET PO (08:36)
[2021-12-07] MEDS: INSULIN ASPART (*BKC) 100 UNITS/ML SUB-Q (08:44)
[2021-12-07 08:48] LABS: Alanine Aminotransferase 19 U/L (4-50); Albumin Level 2.8 g/dL (3.5-5.1); Alkaline Phosphatase 81 U/L (38-126); Anion Gap 8 mmol/L (8-16); Aspartate Amino Transferase 41 U/L (17-59); Bilirubin,Total 0.9 mg/dL (0.2-1.3); Blood Urea Nitrogen 34 mg/dL (9-20); Calcium 7.2 mg/dL (8.4-10.2); Carbon Dioxide 23 mmol/L (22-30); Chloride 98 mmol/L (98-107); Estimated CRCL calculation 40 ml/min; Estimated Glomerular Filt Rate 42; Glucose 206 mg/dL (65-110); Magnesium 2.4 mg/dL (1.6-2.3); Phosphorus 1.6 mg/dL (2.5-4.5); Potassium 3.2 mmol/L (3.4-5.0); Sodium 129 mmol/L (137-145)
[2021-12-07 08:50] LABS: Partial Thromboplastin Time 103.1 SECONDS (22.3-36.8)
[2021-12-07 08:54] LABS: Anisocytosis 1+ (NORMAL); Band Neutrophils Percent 4 % (0-6); Lymphocytes Absolute Manual 0.21 K/mm3 (1.1-4.5); Monocytes Absolute Manual 0.85 K/mm3 (0.1-0.90); Monocytes Percent Manual 4 % (3-9); Neutrophils Absolute Manual 20.33 K/mm3 (1.3-6.7); Neutrophils Percent Manual 91 % (46-73); Platelet Estimate Adequate (Adequate); Total Cells Counted 100
--- NOTE | 2021-12-07 09:32 | PM.IMPN ---
Progress Note: A&P Assessment and Plan (1) Severe sepsis: Code(s): A41.9 - Sepsis, unspecified organism; R65.20 - Severe sepsis without septic shock Status: Acute Assessment and Plan: Present on admission with respiratory failure, ALESSANDRA, leukocytosis with bandemia, lactic acidosis and DKA. Patient was fluid resuscitated in the ED. Chest x-ray consistent with pneumonia. Blood pressure was soft at times but better overall. Patient recently was in [place] in [facility] so coccidioidomycosis being considered. White count peaked at 25K and lactic acid to 4.6. Lactic acid level normal now and WBC trending down. BCx NGTD. UCx negative. Sputum Cx ordered. Legionella Ag pending. Pneumococcal urine Ag positive. Appreciate senior data analyst input. Currently on broad-spectrum IV antibiotics and anti-fungal treatment. (2) Acute coronary syndrome: Code(s): I24.9 - Acute ischemic heart disease, unspecified Status: Acute Assessment and Plan: Acute coronary syndrome with EKG showing ST-elevation in V2 and V3 with no reciprocal changes and Trop to 16 -> 10.7 consistent with STEMI. Cardiology consulted and appreciate their input. Echo showing EF 20-25% with Grade II diastolic dysfunction. He had chest pain yesterday but Trop down to 6 and EKG showing resolving of the acute findings. Remains on Heparin gtt. Continue ASA, Plavix, Lopressor and statin. NTG available prn. (3) Acute respiratory failure: Code(s): J96.00 - Acute respiratory failure, unspecified whether with hypoxia or hypercapnia Status: Acute Assessment and Plan: Patient did have an emesis in the ER with desaturated. He was placed on BiPAP but now changed to Venturi. He did not require BiPAP overnight. Resp failure related to the PNA. Influenza A and B were negative; SARS-CoV-2 PCR was negative. Sputum ordered. Aspiration less likely since passed his bedside swallow study. Urine Legionella antigen pending but urine pneumococcal antigen positive so probably pneumococcal PNA. Consider CHF as well. Continue supplemental O2 and monitor closely. Wean O2 as toelrated. Consider CHF and adding lasix. Add Flutter valve (4) ALESSANDRA (acute kidney injury): Code(s): N17.9 - Acute kidney failure, unspecified Status: Acute Assessment and Plan: Baseline Cr 1.3-1.6. Cr 2.7 on admission. Suspect related to infection, ATN, DKA and dehydration. Renal US normal. Cr better at 1.6. DKA protocol completed. Would stop IV fluids given that he is eating and renal function back to baseline and low EF. Continue to monitor. [employer] secured. (5) DKA, type 2: Code(s): E11.10 - Type 2 diabetes mellitus with ketoacidosis without coma Status: Acute Assessment and Plan: Patient with hyperglycemia with blood sugars of 675 on admission with an anion gap of 28. Some of the anion gap may be related to lactic acidosis as well. Patient was fluid resuscitated in the ED. He was started on DKA protocol with IV fluids and insulin drip. Hemoglobin A1c was 11.4 to show poor compliance prior to admission. Off insulin and lantus 40U started. Continue sliding scale. (6) Pneumonia: Code(s): J18.9 - Pneumonia, unspecified organism Status: Acute Assessment and Plan: Patient presented with URI symptoms and and increasing shortness of breath. CXR on admission showing bilateral airspace disease in the LLL and RUL. As above. Continue treatment as above. (7) Hypokalemia: Code(s): E87.6 - Hypokalemia Status: Acute Assessment and Plan: Potassium dropped to 2.6 related to treatment of DKA and underlying potassium depletion. Potassium and Phos low today and replacement ordered. Continue to replace as needed. (8) Acute hyponatremia: Code(s): E87.1 - Hypo-osmolality and hyponatremia Status: Acute Assessment and Plan: Hyponatremia with sodium at 120 on admission. Suspect related to the hyperglycemi
[2021-12-07] MEDS: HEPARIN SOD/D5W 100 UNITS/ML 25,000 UNITS/250 ML BAG 14 UNITS IV CONT (09:57)
[2021-12-07 10:10] LABS: NT Pro B Type Natriuretic Pept > 35000 pg/mL (5-100)
[2021-12-07] MEDS: cefTRIAXone 2 GM in SODIUM CHLORIDE 0.9% IV 100 ML 200 ML IVPB (10:49)
[2021-12-07] MEDS: carvediloL 3.125 MG TABLET PO ×2 (10:50→20:11)
[2021-12-07] MEDS: guaiFENesin 12 HR 600 MG TABCR PO ×2 (10:51→20:11)
[2021-12-07] MEDS: FUROSEMIDE INJ 40 MG/4 ML VIAL IV PUSH (10:51)
[2021-12-07] MEDS: INSULIN GLARGINE (*BKC) 100 UNITS/ML 40 UNITS SUB-Q (10:51)
--- NOTE | 2021-12-07 11:19 | PCFNICU ---
ICU Rounding Note: Pt current nutrition is DBCC with Glucerna shakes BID. Last recorded weight is 90.5 kg, up from 83.8 kg on admit. Bowel Motility: No BM reported. Labs Reviewed:PO4 1.6,GFR 42, BUN 34, Cr 1.6,Glu 206, Na 129, Hgb 10.6, Hct 30.9 Meds Noted:Plavix, Heparin, Rocephin, Diflucan, Coreg, NovoLog,Lantus, Losartan, Atrovent,Lopressor, Xopenex, Protonix Skin: DM foot, Left 5th metatarsal amp. Additional Notes: Patient currently on a diabetic diet. Oral Intake is improving, eating oatmeal for breakfast this morning. Patient has orders for Glucerna shakes, patient prefers vanilla which is providing an additional 220 kcals and 10 gms protein. Agree with diet orders. Following daily in ICU rounds and reassessing every 5 days.
[2021-12-07 11:45] LABS: Glucose Point of Care 190 mg/dl (65-105)
--- NOTE | 2021-12-07 12:31 | WPDINTPN ---
Progress Note: A&P Assessment and Plan (1) Acute coronary syndrome: Code(s): I24.9 - Acute ischemic heart disease, unspecified Status: Acute Assessment and Plan: Acute coronary syndrome, EKG showed ST-elevation in V2 and V3 with no reciprocal changes, initial troponin was 16.0 followed by 10.80 and 10.70. -he remains on heparin infusion per Cardiology -patient does have acute on chronic kidney disease which is also improving -cardiology is following and is planning for ischemia evaluation eventually -continue aspirin, statin, clopidogrel, Coreg Echo Summary 1. Mild left ventricular enlargement with moderate LVH. Mild to moderate hypokinesis of the base of the heart with severe hypokinesis the been distal segments, suggestive of Takotsubo cardiomyopathy. In addition is a focal area mid/distal anterolateral akinesis. EF measured 25%, viusual EF 25-30%. Grade 2 diastolic dysfunction. 2. Left atrial chamber dimension is mildly enlarged. 3. Dilated inferior vena cava with <50% collapse upon inspiration consistent with elevated right atrial pressure, 15 mmHg. 4. No significant valve disease. 5. Sinus tachycardia. (2) DKA, type 2: Code(s): E11.10 - Type 2 diabetes mellitus with ketoacidosis without coma Status: Acute Assessment and Plan: Patient presented with hyperglycemia, blood sugars of 675 on admission with an anion gap of 28 Patient has been transition to to long-acting insulin and sliding scale insulin, Increase Lantus dose Hemoglobin A1c is 11.4 this admission (3) Severe sepsis: Code(s): A41.9 - Sepsis, unspecified organism; R65.20 - Severe sepsis without septic shock Status: Acute Assessment and Plan: Patient presented with worsening shortness of breath and upper respiratory symptoms last 3 weeks. Initial lactic acid was 4.5, WBC count of 19.5, acute on chronic kidney disease, DKA. 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 (4) Pneumonia: Code(s): J18.9 - Pneumonia, unspecified organism Status: Acute Assessment and Plan: Pneumococcal pneumonia firm by urine pneumococcal antigen positive Chest x-ray reviewed Maintaining adequate oxygenation on Ventimask -antibiotics as above (5) Acute respiratory failure: Code(s): J96.00 - Acute respiratory failure, unspecified whether with hypoxia or hypercapnia Status: Acute Assessment and Plan: Secondary to pneumonia and possible congestive heart failure -influenza A and B were negative -SARS-CoV-2 PCR was negative on admission -continue Ventimask and BiPAP at night -DC IV fluids and will give Lasix IV x1 (6) Acute hyponatremia: Code(s): E87.1 - Hypo-osmolality and hyponatremia Status: Acute Assessment and Plan: Hyponatremia -gradually improving with IV fluids -continue to monitor (7) Hypokalemia: Code(s): E87.6 - Hypokalemia Status: Acute Assessment and Plan: Replace low potassium and phosphate (8) Hyperlipidemia: Qualifiers: Hyperlipidemia type: unspecified Qualified Code(s): E78.5 - Hyperlipidemia, unspecified Code(s): E78.5 - Hyperlipidemia, unspecified Status: Chronic Assessment and Plan: Continue lovastatin (9) Acute renal failure superimposed on stage 3 chronic kidney disease: Code(s): N17.9 - Acute kidney failure, unspecified; N18.30 - Chronic kidney disease, stage 3 unspecified Status: Acute Assessment and Plan: Patient has a history of chronic stage 3 kidney disease, base
[2021-12-07 16:51] LABS: Glucose Point of Care 197 mg/dl (65-105)
--- NOTE | 2021-12-07 18:13 | PM.PNCARD ---
Progress Note: A&P Assessment and Plan (1) Non-ST elevation NC (NSTEMI): Code(s): I21.4 - Non-ST elevation (NSTEMI) myocardial infarction Status: Acute Assessment and Plan: CAD, CABG in 2004, admitted with a non-STEMI from a recent NC. Patient appears hemodynamically stable and has had no chest pain or angina. Severe LV dysfunction; probably all new. Do not know if there is any component Tako-Tsubo cardiomyopathy or just severe multivessel CAD causing severe left ventricular dysfunction. No evidence of heart failure at this time. Continue medical therapy with aspirin, Plavix. Treated with heparin for 2.5 days, discontinued this morning Added high-dose statin, atorvastatin 40 mg daily Started carvedilol 3.125 mg b.i.d. Eventual ischemia evaluation once other medical issues have resolved/stabilized. (2) Severe sepsis: Code(s): A41.9 - Sepsis, unspecified organism; R65.20 - Severe sepsis without septic shock Status: Acute Assessment and Plan: improving, lactic acidosis resolved (3) Pneumonia: Code(s): J18.9 - Pneumonia, unspecified organism Status: Acute Assessment and Plan: on oxygen and antibiotics (4) Acute renal failure superimposed on stage 3 chronic kidney disease: Code(s): N17.9 - Acute kidney failure, unspecified; N18.30 - Chronic kidney disease, stage 3 unspecified Status: Acute Assessment and Plan: improving (5) DKA, type 2: Code(s): E11.10 - Type 2 diabetes mellitus with ketoacidosis without coma Status: Acute Assessment and Plan: resolved (6) PVD (peripheral vascular disease): Code(s): I73.9 - Peripheral vascular disease, unspecified Status: Acute Assessment and Plan: stable Subjective Date/time seen: 12/07/21 18:13 Interval history: FU CAD, recent NC; troponin 16 on admission for sepsis, pneumonia, DKA and ALESSANDRA. CABG report 2004: CABG x5, Dr. Gabriel. 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 He presents to the hospital feeling unwell for several days in the state of diabetic ketoacidosis and acute renal failure. He is not having any obvious chest pain event but his ECG appears to show that an anterior wall infarction has occurred his troponin levels are consistent with this and he is obviously critically ill in this setting. He should be placed on aspirin and clopidogrel as well as he I believe he is already anticoagulated with heparin. Patient is modestly hypotensive and so beta-blockers and ARB are not being administered at this time. We will recommend aggressive supportive care at this time but he is not a reasonable candidate for angiographic evaluation at this time. The patient's ketoacidosis and acute renal failure preclude that at this time. He is not having an acute anterior wall infarction this infarction I believe is already occurred while he was visiting in [place]. Echocardiogram will be done to look at his left ventricular systolic function at this time. Depending on his clinical course particularly depending on his renal function we will determine if an invasive or noninvasive strategy would be appropriate to evaluate him after this event. It also should be considered that angiography in this gentleman would be a higher risk endeavor that may not be prudent at this hospital. Date of Service 12/06/2021: Patient's main complaints are cough and fatigue, no chest pain. Blood sugars improving. Transitioning to long acting insulin; speech eval. Renal function i
[2021-12-07 18:40] LABS: Legionella pneumophila Ag Ur Not Detected (Not Detected)
--- NOTE | 2021-12-07 19:34 | PC.NURSE ---
Admission packet with cardiac rehabilitation information given to patient.
[2021-12-07 20:07] LABS: Glucose Point of Care 229 mg/dl (65-105)
[2021-12-07] MEDS: INSULIN GLARGINE (*BKC) 100 UNITS/ML 20 UNITS SUB-Q (20:10)
[2021-12-08] VITALS (30 sets, daily range): BP systolic 93–111; BP diastolic 59–74; PULSE 84–96; RESP 16–27; TEMP 36.2–37.2; O2SAT 92–99
[2021-12-08] MEDS: IPRATROPIUM BR 0.02% INH SOLN 0.5 MG/2.5 ML VIAL INHALATION ×4 (02:20→20:27)
[2021-12-08] MEDS: LEVALBUTEROL NEB 1.25 MG/3 ML 0.63 MG INHALATION ×4 (02:21→20:27)
[2021-12-08] MEDS: HEPARIN SOD/D5W 100 UNITS/ML 25,000 UNITS/250 ML BAG 14 UNITS IV CONT (03:45)
[2021-12-08 05:47] LABS: Hemoglobin 10.2 g/dL (14.0-18.0); Mean Corpuscular Hemoglobin 29.4 pg (26-34); Mean Corpuscular Volume 86.5 fl (80-100); Mean Platelet Volume 10.8 fl (7.4-10.4); Platelet Count Result 327 k/mm3 (150-375); Red Blood Count 3.47 M/mm3 (4.6-6.20); Red Cell Distribution Width 13.6 % (11.5-14.5); White Blood Count 16.7 K/mm3 (4.5-10.0)
[2021-12-08 05:56] LABS: Partial Thromboplastin Time 103.3 SECONDS (22.3-36.8)
[2021-12-08 06:01] LABS: Alanine Aminotransferase 20 U/L (4-50); Albumin Level 2.7 g/dL (3.5-5.1); Alkaline Phosphatase 82 U/L (38-126); Anion Gap 5 mmol/L (8-16); Aspartate Amino Transferase 50 U/L (17-59); Bilirubin,Total 0.7 mg/dL (0.2-1.3); Blood Urea Nitrogen 35 mg/dL (9-20); Carbon Dioxide 25 mmol/L (22-30); Chloride 98 mmol/L (98-107); Estimated CRCL calculation 35 ml/min; Estimated Glomerular Filt Rate 37; Glucose 126 mg/dL (65-110); Magnesium 2.3 mg/dL (1.6-2.3); Phosphorus 2.5 mg/dL (2.5-4.5); Sodium 128 mmol/L (137-145)
[2021-12-08] MEDS: CENTRAL LINE FLUSH 10 ML IV PUSH ×3 (06:32→21:00)
[2021-12-08 07:18] LABS: Atypical Lymphocytes Present; Band Neutrophils Percent 3 % (0-6); Lymphocytes Absolute Manual 2.33 K/mm3 (1.1-4.5); Monocytes Absolute Manual 0.66 K/mm3 (0.1-0.90); Monocytes Percent Manual 4 % (3-9); Neutrophils Absolute Manual 13.69 K/mm3 (1.3-6.7); Neutrophils Percent Manual 79 % (46-73); Total Cells Counted 100
[2021-12-08] MEDS: KCL 40 MEQ/WATER 100 ML 100 ML 25 ML IVPB (08:05)
[2021-12-08] MEDS: FLUCONAZOLE 200 MG/NACL 100 ML 200 MG/100 ML BAG 100 MG IVPB (08:06)
[2021-12-08] MEDS: cefTRIAXone 2 GM in SODIUM CHLORIDE 0.9% IV 100 ML 200 ML IVPB (08:06)
[2021-12-08] MEDS: METOPROLOL TARTRATE 12.5 MG TABLET PO (08:06)
[2021-12-08] MEDS: PANTOPRAZOLE SODIUM IV 40 MG VIAL IV PUSH (08:07)
[2021-12-08] MEDS: ASPIRIN 81 MG ENTERIC TABLET PO (08:07)
[2021-12-08] MEDS: LOVASTATIN 20 MG TABLET 40 MG PO (08:07)
[2021-12-08] MEDS: CLOPIDOGREL BISULFATE 75 MG TABLET PO (08:08)
[2021-12-08] MEDS: guaiFENesin 12 HR 600 MG TABCR PO ×2 (08:08→20:56)
[2021-12-08] MEDS: carvediloL 3.125 MG TABLET PO ×2 (08:08→20:56)
[2021-12-08] MEDS: CALCIUM CARBONATE (TUMS) 500 MG (200 MG ELEMENTAL) PO ×2 (08:11→16:43)
[2021-12-08] MEDS: POTASSIUM CHLORIDE 20 MEQ TABLET 40 MEQ PO (08:11)
--- NOTE | 2021-12-08 08:41 | WPDINTPN ---
Progress Note: A&P Assessment and Plan (1) Acute coronary syndrome: Code(s): I24.9 - Acute ischemic heart disease, unspecified Status: Acute Assessment and Plan: Acute coronary syndrome, EKG showed ST-elevation in V2 and V3 with no reciprocal changes, initial troponin was 16.0 followed by 10.80 and 10.70. -he remains on heparin infusion per Cardiology -patient does have acute on chronic kidney disease which has improved -cardiology is following and is planning for ischemia evaluation eventually -continue aspirin, statin, clopidogrel, Coreg Echo Summary 1. Mild left ventricular enlargement with moderate LVH. Mild to moderate hypokinesis of the base of the heart with severe hypokinesis the been distal segments, suggestive of Takotsubo cardiomyopathy. In addition is a focal area mid/distal anterolateral akinesis. EF measured 25%, viusual EF 25-30%. Grade 2 diastolic dysfunction. 2. Left atrial chamber dimension is mildly enlarged. 3. Dilated inferior vena cava with <50% collapse upon inspiration consistent with elevated right atrial pressure, 15 mmHg. 4. No significant valve disease. 5. Sinus tachycardia. (2) DKA, type 2: Code(s): E11.10 - Type 2 diabetes mellitus with ketoacidosis without coma Status: Acute Assessment and Plan: Patient presented with hyperglycemia, blood sugars of 675 on admission with an anion gap of 28 Patient has been transition to to long-acting insulin and sliding scale insulin, Blood sugar improved with increased Lantus dose Hemoglobin A1c is 11.4 this admission (3) Severe sepsis: Code(s): A41.9 - Sepsis, unspecified organism; R65.20 - Severe sepsis without septic shock Status: Acute Assessment and Plan: Patient presented with worsening shortness of breath and upper respiratory symptoms last 3 weeks. Initial lactic acid was 4.5, WBC count of 19.5, acute on chronic kidney disease, DKA. 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 Serologies pending (4) Pneumonia: Code(s): J18.9 - Pneumonia, unspecified organism Status: Acute Assessment and Plan: Pneumococcal pneumonia firm by urine pneumococcal antigen positive Chest x-ray reviewed Maintaining adequate oxygenation on Ventimask -antibiotics as above (5) Acute respiratory failure: Code(s): J96.00 - Acute respiratory failure, unspecified whether with hypoxia or hypercapnia Status: Acute Assessment and Plan: Secondary to pneumonia and possible congestive heart failure -influenza A and B were negative -SARS-CoV-2 PCR was negative on admission -continue Ventimask and BiPAP at night -of IV fluids and was given Lasix IV on 12/07 (6) Acute hyponatremia: Code(s): E87.1 - Hypo-osmolality and hyponatremia Status: Acute Assessment and Plan: Hyponatremia -gradually improving with IV fluids -continue to monitor (7) Hypokalemia: Code(s): E87.6 - Hypokalemia Status: Acute Assessment and Plan: Replace low potassium again today (8) Hyperlipidemia: Qualifiers: Hyperlipidemia type: unspecified Qualified Code(s): E78.5 - Hyperlipidemia, unspecified Code(s): E78.5 - Hyperlipidemia, unspecified Status: Chronic Assessment and Plan: Continue lovastatin (9) Acute renal failure superimposed on stage 3 chronic kidney disease: Code(s): N17.9 - Acute kidney failure, unspecified; N18.30 - Chronic kidney disease, stage 3 unspecified Status: Acute Assessment and Plan: Patient has a h
[2021-12-08 08:43] LABS: Glucose Point of Care 103 mg/dl (65-105)
[2021-12-08] MEDS: INSULIN GLARGINE (*BKC) 100 UNITS/ML 40 UNITS SUB-Q (09:17)
--- NOTE | 2021-12-08 09:47 | PM.PNCARD ---
Progress Note: A&P Assessment and Plan (1) Non-ST elevation AL (NSTEMI): Code(s): I21.4 - Non-ST elevation (NSTEMI) myocardial infarction Status: Acute Assessment and Plan: CAD, CABG in 2004, admitted with a non-STEMI from a recent AL. Patient appears hemodynamically stable and has had no chest pain or angina. Severe LV dysfunction; probably all new. Do not know if there is any component Tako-Tsubo cardiomyopathy or just severe multivessel CAD causing severe left ventricular dysfunction. No evidence of heart failure at this time. Continue medical therapy with aspirin, Plavix. Treated with heparin for 3.5 days, this has been discontinued Added high-dose statin, atorvastatin 40 mg daily Started carvedilol 3.125 mg b.i.d. Eventual ischemia evaluation once other medical issues have resolved/stabilized. Echo 12/06/2021: Mild left ventricular enlargement with moderate LVH. Mild to moderatehypokinesis of the base of the heart with severe hypokinesis the been distal segments, suggestive of Takotsubo cardiomyopathy. In addition is a focal area mid/distal anterolateral akinesis. EF measured 25%, viusual EF 25-30%. Grade diastolic dysfunction. No significant valvular abnornmalities. (2) Severe sepsis: Code(s): A41.9 - Sepsis, unspecified organism; R65.20 - Severe sepsis without septic shock Status: Acute Assessment and Plan: improving, lactic acidosis resolved (3) Pneumonia: Code(s): J18.9 - Pneumonia, unspecified organism Status: Acute Assessment and Plan: on oxygen and antibiotics (4) Acute renal failure superimposed on stage 3 chronic kidney disease: Code(s): N17.9 - Acute kidney failure, unspecified; N18.30 - Chronic kidney disease, stage 3 unspecified Status: Acute Assessment and Plan: improving (5) DKA, type 2: Code(s): E11.10 - Type 2 diabetes mellitus with ketoacidosis without coma Status: Acute Assessment and Plan: resolved (6) PVD (peripheral vascular disease): Code(s): I73.9 - Peripheral vascular disease, unspecified Status: Acute Assessment and Plan: stable Subjective Date/time seen: 12/08/21 09:47 Interval history: FU CAD, recent AL; troponin 16 on admission for sepsis, pneumonia, DKA and ALESSANDRA. CABG report 2004: CABG x5, Dr. Gabriel. 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 He presents to the hospital feeling unwell for several days in the state of diabetic ketoacidosis and acute renal failure. He is not having any obvious chest pain event but his ECG appears to show that an anterior wall infarction has occurred his troponin levels are consistent with this and he is obviously critically ill in this setting. He should be placed on aspirin and clopidogrel as well as he I believe he is already anticoagulated with heparin. Patient is modestly hypotensive and so beta-blockers and ARB are not being administered at this time. We will recommend aggressive supportive care at this time but he is not a reasonable candidate for angiographic evaluation at this time. The patient's ketoacidosis and acute renal failure preclude that at this time. He is not having an acute anterior wall infarction this infarction I believe is already occurred while he was visiting in [place]. Echocardiogram will be done to look at his left ventricular systolic function at this time. Depending on his clinical course particularly depending on his renal function we will determine if an invasive or noninvasive stra
[2021-12-08 11:33] LABS: Glucose Point of Care 202 mg/dl (65-105)
--- NOTE | 2021-12-08 11:56 | PCFNICU ---
ICU Rounding Note: Pt current nutrition is DBCC with Glucerna shake BID Last recorded weight is 91 kg, up from 83.8 kg on admit. Bowel Motility:+BM reported 12/07 Labs Reviewed:Glu 126, GFR 3.0, BUN 35, Hct 30.0,Hgb 10.2, Na 128, Alb 2.7 Meds Noted:Plavix, Heparin, Rocephin, Diflucan, Coreg, NovoLog,Lantus, Losartan, Atrovent,Lopressor, Xopenex, Protonix, Mucinex Skin:DM foot, Left 5th metatarsal amp. Additional Notes: Patient remains on a DBCC diet with Glucerna shakes BID. Oral Intake today 10% for breakfast, patient is drinking diet supplement providing an additional 220 kcals and 10 gms protein. PO intake encouraged. Agree with diet orders. Following daily in ICU rounds. RD will monitor every 5 days.
[2021-12-08] MEDS: INSULIN ASPART (*BKC) 100 UNITS/ML SUB-Q (12:46)
--- NOTE | 2021-12-08 15:21 | PM.IMPN ---
Progress Note: A&P Assessment and Plan (1) Severe sepsis: Code(s): A41.9 - Sepsis, unspecified organism; R65.20 - Severe sepsis without septic shock Status: Acute Assessment and Plan: Present on admission with respiratory failure, ALESSANDRA, leukocytosis with bandemia, lactic acidosis and DKA. Patient was fluid resuscitated in the ED. CXR consistent with pneumonia. Blood pressure was soft at times but better overall. Patient recently was in [place] in [facility] so coccidioidomycosis being considered. White count peaked at 25K and lactic acid to 4.6. Lactic acid level normal now and WBC trending down. BCx NGTD. UCx negative. Sputum Cx ordered. Legionella Ag negative. Pneumococcal urine Ag positive. Appreciate window cleaner input. Currently on Rocephin and anti-fungal treatment. (2) Acute respiratory failure: Code(s): J96.00 - Acute respiratory failure, unspecified whether with hypoxia or hypercapnia Status: Acute Assessment and Plan: Patient did have an emesis in the ER with desaturated. He was placed on BiPAP but now changed to Venturi. He was weaned off BiPAP and Venturi mask. Resp failure related to the PNA. Influenza A and B were negative; SARS-CoV-2 PCR was negative. Sputum ordered. Aspiration less likely since passed his bedside swallow study. Urine Legionella antigen negative; urine pneumococcal antigen positive so probably pneumococcal PNA. Consider CHF as well since imrpoved after one dose Lasix. Continue supplemental O2 and wean as tolerated. (3) Pneumonia: Code(s): J18.9 - Pneumonia, unspecified organism Status: Acute Assessment and Plan: Patient presented with URI symptoms and and increasing shortness of breath. CXR on admission showing bilateral airspace disease in the LLL and RUL. As above. Continue treatment as above. (4) Acute coronary syndrome: Code(s): I24.9 - Acute ischemic heart disease, unspecified Status: Acute Assessment and Plan: Acute coronary syndrome with EKG showing ST-elevation in V2 and V3 with no reciprocal changes and Trop to 16 -> 6 consistent with STEMI. Cardiology consulted and appreciate their input. Echo showing EF 20-25% with Grade II diastolic dysfunction. No further chest pain. Heparin gtt stopped today. Continue ASA, Plavix, Coreg and statin. Stop Lopresor. NTG available prn. (5) LV dysfunction: Code(s): I51.9 - Heart disease, unspecified Status: Acute Assessment and Plan: As above (6) DKA, type 2: Code(s): E11.10 - Type 2 diabetes mellitus with ketoacidosis without coma Status: Acute Assessment and Plan: Patient with hyperglycemia with blood sugars of 675 on admission with an anion gap of 28. Some of the anion gap may be related to lactic acidosis as well. Patient was fluid resuscitated in the ED. He was started on DKA protocol with IV fluids and insulin drip. Hemoglobin A1c was 11.4 to show poor compliance prior to admission. Off insulin drip and lantus 40U started. Continue sliding scale. (7) Insulin dependent diabetes mellitus: Status: Acute Assessment and Plan: A1c 11.4. Glucose reviewed on 12/08 Glucose better controlled this morning. Continue AccuCheks covering with sliding scale. Hypoglycemia protocol available as needed. Will decrease evening Lantus slight. family living educator and talent associate consult (8) ALESSANDRA (acute kidney injury): Code(s): N17.9 - Acute kidney failure, unspecified Status: Acute Assessment and Plan: Baseline Cr 1.3-1.6. Cr 2.7 on admission. Suspect related to infection, ATN, DKA and dehydration. Renal US normal. Cr worse at 1.8 today probably relatd to Lasix. Continue to monitor. [employer] secured. (9) Hypokalemia: Code(s): E87.6 - Hypokalemia Status: Acute Assessment and Plan: Potassium dropped to 2.6 related to treatment of DKA and underlying potassium depletion. Electrolytes reviewed.
[2021-12-08 16:34] LABS: Chloride Rand Ur <20 mmol/L (32-290); Creatinine Random Urine 77 mg/dL (20-320)
[2021-12-08 16:49] LABS: Glucose Point of Care 191 mg/dl (65-105)
[2021-12-08 20:59] LABS: Glucose Point of Care 217 mg/dl (65-105)
[2021-12-08] MEDS: INSULIN GLARGINE (*BKC) 100 UNITS/ML 15 UNITS SUB-Q (21:00)
[2021-12-09] VITALS (25 sets, daily range): BP systolic 100–124; BP diastolic 55–72; PULSE 77–88; RESP 17–28; TEMP 36.8–37.3; O2SAT 90–100
[2021-12-09] MEDS: LEVALBUTEROL NEB 1.25 MG/3 ML 0.63 MG INHALATION ×4 (02:35→19:47)
[2021-12-09] MEDS: IPRATROPIUM BR 0.02% INH SOLN 0.5 MG/2.5 ML VIAL INHALATION ×4 (02:36→19:47)
[2021-12-09 05:57] LABS: Hemoglobin 10.7 g/dL (14.0-18.0); Mean Corpuscular HGB Conc 34.5 g/dl (32-36); Mean Corpuscular Hemoglobin 29.6 pg (26-34); Mean Corpuscular Volume 85.6 fl (80-100); Mean Platelet Volume 10.8 fl (7.4-10.4); Platelet Count Result 353 k/mm3 (150-375); Red Blood Count 3.62 M/mm3 (4.6-6.20); Red Cell Distribution Width 13.8 % (11.5-14.5); White Blood Count 19.6 K/mm3 (4.5-10.0)
[2021-12-09 06:10] LABS: Alanine Aminotransferase 17 U/L (4-50); Albumin Level 2.6 g/dL (3.5-5.1); Alkaline Phosphatase 80 U/L (38-126); Anion Gap 6 mmol/L (8-16); Aspartate Amino Transferase 33 U/L (17-59); Bilirubin,Total 0.6 mg/dL (0.2-1.3); Blood Urea Nitrogen 36 mg/dL (9-20); Calcium 7.1 mg/dL (8.4-10.2); Carbon Dioxide 24 mmol/L (22-30); Chloride 98 mmol/L (98-107); Estimated CRCL calculation 37 ml/min; Estimated Glomerular Filt Rate 39; Glucose 102 mg/dL (65-110); Magnesium 2.2 mg/dL (1.6-2.3); Phosphorus 2.4 mg/dL (2.5-4.5); Potassium 3.4 mmol/L (3.4-5.0); Sodium 128 mmol/L (137-145)
[2021-12-09 07:04] LABS: Anisocytosis 1+ (NORMAL); Band Neutrophils Percent 1 % (0-6); Hypochromasia 1+ (NORMAL); Lymphocytes Absolute Manual 1.96 K/mm3 (1.1-4.5); Monocytes Absolute Manual 2.15 K/mm3 (0.1-0.90); Monocytes Percent Manual 11 % (3-9); Neutrophils Absolute Manual 15.48 K/mm3 (1.3-6.7); Neutrophils Percent Manual 78 % (46-73); Platelet Estimate Adequate (Adequate); Total Cells Counted 100
[2021-12-09 07:05] LABS: Atypical Lymphocytes Present
[2021-12-09] MEDS: CENTRAL LINE FLUSH 10 ML IV PUSH ×2 (07:20→20:31)
[2021-12-09 08:37] LABS: Glucose Point of Care 86 mg/dl (65-105)
[2021-12-09] MEDS: LOVASTATIN 20 MG TABLET 40 MG PO (09:14)
[2021-12-09] MEDS: ASPIRIN 81 MG ENTERIC TABLET PO (09:15)
[2021-12-09] MEDS: cefTRIAXone 2 GM in SODIUM CHLORIDE 0.9% IV 100 ML 200 ML IVPB (09:15)
[2021-12-09] MEDS: carvediloL 3.125 MG TABLET PO ×2 (09:16→20:31)
[2021-12-09] MEDS: ENOXAPARIN 40 MG/0.4 ML SYRINGE SUB-Q (09:16)
[2021-12-09] MEDS: CLOPIDOGREL BISULFATE 75 MG TABLET PO (09:17)
[2021-12-09] MEDS: PANTOPRAZOLE SODIUM IV 40 MG VIAL IV PUSH (09:18)
[2021-12-09] MEDS: INSULIN GLARGINE (*BKC) 100 UNITS/ML 40 UNITS SUB-Q (09:32)
[2021-12-09] MEDS: CALCIUM CARBONATE (TUMS) 500 MG (200 MG ELEMENTAL) PO ×2 (09:33→17:09)
[2021-12-09] MEDS: guaiFENesin 12 HR 600 MG TABCR PO ×2 (10:00→20:31)
[2021-12-09] MEDS: FLUCONAZOLE 200 MG/NACL 100 ML 200 MG/100 ML BAG 100 MG IVPB (10:03)
--- NOTE | 2021-12-09 11:46 | PCNFU ---
Nutrition Follow-Up Complete: Inadequate Oral Intake as related to Pneumonia as evidenced by poor po intake reported. Goal: Adequate Intake of at least 75% of meals/supplements Patient is progressing towards goal. We will continue current goal. Pt current nutrition is DBCC with Glucerna shakes BID. Last recorded weight is 96.7 kg, up from 83.8 kg on admit. Bowel Motility:+BM reported 12/07 Labs Reviewed:Cr 1.7,Na 128, Alb 2.6,Hct 31.0,Hgb 10.7, GFR 39 Meds Noted:Plavix, Diflucan, Coreg, NovoLog,Lantus, Losartan, Atrovent,Lopressor, Xopenex, Protonix, Mucinex Skin: DM foot, Left 5th metatarsal amp. Additional Notes: Patient remains on a DBCC diet. Oral Intake improving 20-80% reported. Patient continues to drink is diet supplement of Glucerna providing an additional 220 kcals and 10 gms protein. Agree with diet orders. Monitoring: RD will monitor every 5 days.
[2021-12-09 12:05] LABS: Glucose Point of Care 150 mg/dl (65-105)
--- NOTE | 2021-12-09 13:22 | PM.IMPN ---
Progress Note: A&P Assessment and Plan (1) Severe sepsis: Code(s): A41.9 - Sepsis, unspecified organism; R65.20 - Severe sepsis without septic shock Status: Acute Assessment and Plan: Present on admission with respiratory failure, ALESSANDRA, leukocytosis with bandemia, lactic acidosis and DKA. Patient was fluid resuscitated in the ED. CXR consistent with pneumonia. Blood pressure was soft at times but more stable now. Patient recently was in [place] in [facility] so coccidioidomycosis being considered. White count peaked at 25K and lactic acid to 4.6. Lactic acid level normal now and WBC up again today for unclear reasons. BCx NGTD. UCx negative. Sputum Cx ordered. Legionella Ag negative. Pneumococcal urine Ag positive. Currently on Rocephin and Diflucan. Will monitor WBC for now but consider broadening coverage if this persists. (2) Acute respiratory failure: Code(s): J96.00 - Acute respiratory failure, unspecified whether with hypoxia or hypercapnia Status: Acute Assessment and Plan: Patient did have an emesis in the ER with desaturated. He was placed on BiPAP but changed to Venturi. Resp failure related to the PNA. Influenza A and B were negative; SARS-CoV-2 PCR was negative. Sputum ordered. Aspiration less likely since passed his bedside swallow study. Urine Legionella antigen negative; urine pneumococcal antigen positive so probably pneumococcal PNA. Consider CHF component as well since improved with one dose Lasix and good UOP. Unclear why he needed BiPAP last night. Continue supplemental O2 and wean as tolerated. Have BiPAP available at night. (3) Pneumonia: Code(s): J18.9 - Pneumonia, unspecified organism Status: Acute Assessment and Plan: Patient presented with URI symptoms and and increasing shortness of breath. CXR on admission showing bilateral airspace disease in the LLL and RUL. As above. Continue treatment as above. (4) Acute coronary syndrome: Code(s): I24.9 - Acute ischemic heart disease, unspecified Status: Acute Assessment and Plan: Acute coronary syndrome with EKG showing ST-elevation in V2 and V3 with no reciprocal changes and Trop to 16 -> 6 consistent with STEMI. Cardiology consulted and appreciate their input. Echo showing EF 20-25% with Grade II diastolic dysfunction. No further chest pain. Heparin gtt was stopped. Continue ASA, Plavix, Coreg and statin. NTG available prn. Ischemia evaluation when able (5) LV dysfunction: Code(s): I51.9 - Heart disease, unspecified Status: Acute Assessment and Plan: Consider stress response or ischemic etilogy resulting in the LV dysfunction. Medical management. As above. Add CRISELDA/ARB or Entresto when able. (6) DKA, type 2: Code(s): E11.10 - Type 2 diabetes mellitus with ketoacidosis without coma Status: Acute Assessment and Plan: Patient with hyperglycemia with blood sugars of 675 on admission with an anion gap of 28. Some of the anion gap may be related to lactic acidosis as well. Patient was fluid resuscitated in the ED. He was started on DKA protocol with IV fluids and insulin drip. Hemoglobin A1c was 11.4 to show poor compliance prior to admission. Off insulin drip and lantus 40U started. Continue sliding scale. (7) Insulin dependent diabetes mellitus: Status: Acute Assessment and Plan: A1c 11.4. Glucose reviewed on 12/09 Glucose much better controlled this morning. Continue AccuCheks covering with sliding scale. Hypoglycemia protocol available as needed. We decreased evening Lantus yesterday to 15U. He remains on Lantus 40U in the morning. darkroom technician and finisher screwdown consult. Will decrease night time lantus again (8) ALESSANDRA (acute kidney injury): Code(s): N17.9 - Acute kidney failure, unspecified Status: Acute Assessment and Plan: Baseline Cr 1.3-1.6. Cr 2.7 on admission. Suspect related to infection, ATN, DKA
--- NOTE | 2021-12-09 13:56 | PM.PNCARD ---
Progress Note: A&P Assessment and Plan (1) Non-ST elevation CO (NSTEMI): Code(s): I21.4 - Non-ST elevation (NSTEMI) myocardial infarction Status: Acute Assessment and Plan: CAD, CABG in 2004, admitted with a non-STEMI from a recent CO. Patient appears hemodynamically stable and has had no chest pain or angina. Severe LV dysfunction; probably all new. Do not know if there is any component Tako-Tsubo cardiomyopathy or just severe multivessel CAD causing severe left ventricular dysfunction. No evidence of heart failure at this time. Continue medical therapy with aspirin, Plavix. Treated with heparin for 3.5 days, this has been discontinued Added high-dose statin, atorvastatin 40 mg daily Started carvedilol 3.125 mg b.i.d. Eventual ischemia evaluation once other medical issues have resolved/stabilized. This would be a risk risk procedure and will probably not be carried out at this hospital. Echo 12/06/2021: Mild left ventricular enlargement with moderate LVH. Mild to moderatehypokinesis of the base of the heart with severe hypokinesis the been distal segments, suggestive of Takotsubo cardiomyopathy. In addition is a focal area mid/distal anterolateral akinesis. EF measured 25%, viusual EF 25-30%. Grade diastolic dysfunction. No significant valvular abnornmalities. (2) Severe sepsis: Code(s): A41.9 - Sepsis, unspecified organism; R65.20 - Severe sepsis without septic shock Status: Acute Assessment and Plan: improving, lactic acidosis resolved (3) Pneumonia: Code(s): J18.9 - Pneumonia, unspecified organism Status: Acute Assessment and Plan: on oxygen and antibiotics (4) Acute renal failure superimposed on stage 3 chronic kidney disease: Code(s): N17.9 - Acute kidney failure, unspecified; N18.30 - Chronic kidney disease, stage 3 unspecified Status: Acute Assessment and Plan: improving (5) DKA, type 2: Code(s): E11.10 - Type 2 diabetes mellitus with ketoacidosis without coma Status: Acute Assessment and Plan: resolved (6) PVD (peripheral vascular disease): Code(s): I73.9 - Peripheral vascular disease, unspecified Status: Acute Assessment and Plan: stable Subjective Date/time seen: 12/09/21 13:56 Interval history: FU CAD, recent CO; troponin 16 on admission for sepsis, pneumonia, DKA and ALESSANDRA. CABG report 2005: CABG x5, Dr. Gabriel. 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 He presents to the hospital feeling unwell for several days in the state of diabetic ketoacidosis and acute renal failure. He is not having any obvious chest pain event but his ECG appears to show that an anterior wall infarction has occurred his troponin levels are consistent with this and he is obviously critically ill in this setting. He should be placed on aspirin and clopidogrel as well as he I believe he is already anticoagulated with heparin. Patient is modestly hypotensive and so beta-blockers and ARB are not being administered at this time. We will recommend aggressive supportive care at this time but he is not a reasonable candidate for angiographic evaluation at this time. The patient's ketoacidosis and acute renal failure preclude that at this time. He is not having an acute anterior wall infarction this infarction I believe is already occurred while he was visiting in [place]. Echocardiogram will be done to look at his left ventricular systolic function at this time. Depending on his clinical course par
[2021-12-09] MEDS: POTASSIUM/PHOSPHORUS/SODIUM 1.5 GM PACKET 1 PACKET PO (14:35)
[2021-12-09 16:42] LABS: Glucose Point of Care 168 mg/dl (65-105)
[2021-12-09 20:24] LABS: Glucose Point of Care 147 mg/dl (65-105)
[2021-12-09] MEDS: INSULIN GLARGINE (*BKC) 100 UNITS/ML 7 UNITS SUB-Q (20:31)
--- NOTE | 2021-12-09 22:06 | PCRCNOTE ---
Patient is refusing Bipap tonight. States it hurts him to wear it and the Doctor told me I didn't have to wear it. I informed the patient to let the RN know if he changes his mind or has any shortness of breath so we could re-evaluate the need for Bipap. Patient is currently on 2 lpm nasal cannula with SPO2 of 93%
[2021-12-09] MEDS: ACETAMINOPHEN 325 MG TABLET 650 MG PO (23:26)
[2021-12-10] VITALS (23 sets, daily range): BP systolic 105–126; BP diastolic 52–74; PULSE 73–90; RESP 19–25; TEMP 36.4–36.6; O2SAT 90–100
[2021-12-10] MEDS: LEVALBUTEROL NEB 1.25 MG/3 ML 0.63 MG INHALATION ×4 (01:17→19:55)
[2021-12-10] MEDS: IPRATROPIUM BR 0.02% INH SOLN 0.5 MG/2.5 ML VIAL INHALATION ×4 (01:17→19:55)
[2021-12-10 04:39] LABS: Hematocrit 33.8 % (42.0-52.0); Hemoglobin 11.7 g/dL (14.0-18.0); Mean Corpuscular HGB Conc 34.6 g/dl (32-36); Mean Corpuscular Hemoglobin 29.7 pg (26-34); Mean Corpuscular Volume 85.8 fl (80-100); Mean Platelet Volume 10.7 fl (7.4-10.4); Platelet Count Result 411 k/mm3 (150-375); Red Blood Count 3.94 M/mm3 (4.6-6.20); Red Cell Distribution Width 13.9 % (11.5-14.5); White Blood Count 19.5 K/mm3 (4.5-10.0)
[2021-12-10 05:03] LABS: Alanine Aminotransferase 22 U/L (4-50); Albumin Level 2.5 g/dL (3.5-5.1); Alkaline Phosphatase 79 U/L (38-126); Anion Gap 3 mmol/L (8-16); Aspartate Amino Transferase 45 U/L (17-59); Bilirubin,Total 0.5 mg/dL (0.2-1.3); Blood Urea Nitrogen 31 mg/dL (9-20); Carbon Dioxide 26 mmol/L (22-30); Chloride 98 mmol/L (98-107); Estimated CRCL calculation 37 ml/min; Estimated Glomerular Filt Rate 39; Glucose 57 mg/dL (65-110); Magnesium 2.3 mg/dL (1.6-2.3); Phosphorus 2.8 mg/dL (2.5-4.5); Potassium 3.4 mmol/L (3.4-5.0); Sodium 127 mmol/L (137-145)
[2021-12-10 05:07] LABS: Band Neutrophils Percent 2 % (0-6); Lymphocytes Absolute Manual 3.51 K/mm3 (1.1-4.5); Lymphocytes Percent Manual 18 % (18-44); Neutrophils Absolute Manual 12.48 K/mm3 (1.3-6.7); Neutrophils Percent Manual 62 % (46-73); Total Cells Counted 100
[2021-12-10 05:08] LABS: Eosinophils Absolute Manual 0.39 K/mm3 (0.02-0.5); Eosinophils Percent Manual 2 % (0-4); Monocytes Absolute Manual 3.12 K/mm3 (0.1-0.90); Monocytes Percent Manual 16 % (3-9)
[2021-12-10 05:51] LABS: Glucose Point of Care 89 mg/dl (65-105)
[2021-12-10] MEDS: CENTRAL LINE FLUSH 10 ML IV PUSH (05:52)
--- NOTE | 2021-12-10 06:09 | PC.NURSE ---
05:09 Patient's blood glucose critical. Patient alert, oriented, and asymptomatic at this time. Juice provided to patient, and blood glucose will be rechecked.
[2021-12-10 08:43] LABS: Glucose Point of Care 126 mg/dl (65-105)
[2021-12-10 09:58] LABS: Glucose Point of Care 109 mg/dl (65-105)
[2021-12-10] MEDS: FLUCONAZOLE 200 MG/NACL 100 ML 200 MG/100 ML BAG 100 MG IVPB (10:23)
[2021-12-10] MEDS: cefTRIAXone 2 GM in SODIUM CHLORIDE 0.9% IV 100 ML 200 ML IVPB (10:24)
[2021-12-10] MEDS: INSULIN GLARGINE (*BKC) 100 UNITS/ML 35 UNITS SUB-Q (10:26)
[2021-12-10] MEDS: ENOXAPARIN 40 MG/0.4 ML SYRINGE SUB-Q (10:28)
[2021-12-10] MEDS: guaiFENesin 12 HR 600 MG TABCR PO ×2 (10:28→20:33)
[2021-12-10] MEDS: PANTOPRAZOLE SODIUM IV 40 MG VIAL IV PUSH (10:28)
[2021-12-10] MEDS: CLOPIDOGREL BISULFATE 75 MG TABLET PO (10:28)
[2021-12-10] MEDS: LOVASTATIN 20 MG TABLET 40 MG PO (10:28)
[2021-12-10] MEDS: ASPIRIN 81 MG ENTERIC TABLET PO (10:28)
[2021-12-10] MEDS: carvediloL 3.125 MG TABLET PO ×2 (10:28→20:32)
--- NOTE | 2021-12-10 10:30 | PM.CNNEP ---
Assessment and Plan Additional Plan 1. Chris has chronic kidney disease. His creatinine generally runs around 1.7. He is back to this level now. Most likely this is due to hypertension diabetes and vascular disease. He does have retinopathy but since his urine microalbumin to creatinine ratio has been fairly low I do not think that this is primarily diabetic nephropathy. There other causes of kidney disease as well, including rhabdomyolysis, obstruction, glomerulonephritis and interstitial nephritis. We can check a CPK and a renal ultrasound but I think the other issues are less likely. To evaluate these I will get serology and immunofixation. His meds look okay. 2. The patient has hypertension. His blood pressure is under good control. 3. The patient has hyperlipidemia. Will check a lipid panel. 4. Patient has peripheral vascular disease. Getting supportive care. 5. The patient has mild anemia. This is most likely due to chronic disease. Kidney disease could be playing a role. His Hemoglobin is not low enough to start Epogen. 6. he had pneumonia. He is getting antibiotics for this. 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 The patient came in the hospital because of Shortness of breath. He was evaluated in the emergency room found to have pneumonia. He is admitted to the ICU. He was placed on antibiotics. Is also found to be dehydrated she was given IV fluids. His creatinine was higher than its baseline which was felt to be due to the dehydration. His creatinine has gradually improved since admission. He is now back at baseline. He was also found to have a sodium of 120. This improved with hydration and treating the pneumonia. His sodium is 127 today. He says that he does not see a kidney doctor as an outpatient. He sees Adolfo in Dr. Marr's office who has been watching his kidneys. He denies any bloody urine, foamy urine, kidney stones, or bladder infection. He has no pain with urination. He does take Motrin every once in a while he says. This is not a common thing however. Past history as above. Allergies Ba inhibitors. Social history he does not smoke or drink. Family history Randleman kidney disease. Review of Systems Constitutional: Constitutional: Reports no additional constitutional complaints Eyes: Eyes: Reports no additional eye complaints ENT: Reports system reviewed and no additional complaints, except as documented Cardiovascular: Cardiovascular: Reports no additional cardiovascular complaints Respiratory: Respiratory: Reports no additional respiratory complaints Gastrointestinal: Gastrointestinal: Reports no additional gastrointestinal complaints Genitourinary: Genitourinary: Reports no additional male genitourinary complaints Musculoskeletal: Musculoskeletal: Reports no additional musculoskeletal complaints Integumentary/Breasts: Skin/Breast: Reports system reviewed and no additional complaints, except as docu Neurologic: Reports system reviewed and no additional complaints, except as documented Psychiatric: Psychiatric: Reports no additional psychiatric complaints Endocrine: Endocrine: Reports no additional endocrine complaints [facility] Past Medical History Medical History Abscess of right foot Anemia Arthritis Cellulitis of foot, right Cellulitis of right foot Chronic foot ulcer Chronic kidney disease, stage 3 Baseline creatinine as 1.3 and 1.6
[2021-12-10 11:20] LABS: Creatine Kinase 64 U/L (55-170)
[2021-12-10 11:28] LABS: Complement C3 97 mg/dL (88-165)
[2021-12-10 12:09] LABS: Glucose Point of Care 137 mg/dl (65-105)
[2021-12-10 12:22] LABS: Erythrocyte Sedimentation Rate 103 mm/hr (0-20)
--- NOTE | 2021-12-10 12:43 | PC.NURSE ---
This patient, Chris Handley, was transferred to [facility] on 12/10/21 at 1240. Personal belongings sent with patient. Report given to Leigh GARRIDO. Appropriate documentation sent with patient.
--- NOTE | 2021-12-10 13:18 | PC.NURSE ---
This patient, Chris Handley, was received from ICU on 12/10/21 at 1241. Patient/family oriented to unit policies and routines
--- NOTE | 2021-12-10 14:12 | PCOTNOTE ---
Attempted to see pt. at 13:25. Pt. eating lunch and requested to finish lunch prior to evaluation.
--- NOTE | 2021-12-10 16:21 | PM.PNCARD ---
Progress Note: A&P Assessment and Plan (1) Non-ST elevation NH (NSTEMI): Code(s): I21.4 - Non-ST elevation (NSTEMI) myocardial infarction Status: Acute Assessment and Plan: CAD, CABG in 2004, admitted with a non-STEMI. H/O remote CABG. Patient appears hemodynamically stable and has had no chest pain or angina. Severe LV dysfunction; probably all new. Do not know if there is any component Tako-Tsubo cardiomyopathy or just severe multivessel CAD causing severe left ventricular dysfunction. No evidence of heart failure at this time. Initially heparinized. Continue medical therapy with aspirin, Plavix, statin, carvedilol Eventual ischemia evaluation once other medical issues have resolved/stabilized. This would be a high risk procedure and will probably not be carried out at this hospital. Echo 12/06/2021: Mild left ventricular enlargement with moderate LVH. Mild to moderate hypokinesis of the base of the heart with severe hypokinesis the been distal segments, suggestive of Takotsubo cardiomyopathy. In addition is a focal area mid/distal anterolateral akinesis. EF measured 25%, visual EF 25-30%. Grade diastolic dysfunction. No significant valvular abnornmalities. (2) Severe sepsis: Code(s): A41.9 - Sepsis, unspecified organism; R65.20 - Severe sepsis without septic shock Status: Acute Assessment and Plan: improving, lactic acidosis resolved (3) Pneumonia: Code(s): J18.9 - Pneumonia, unspecified organism Status: Acute Assessment and Plan: on oxygen and antibiotics (4) Acute renal failure superimposed on stage 3 chronic kidney disease: Code(s): N17.9 - Acute kidney failure, unspecified; N18.30 - Chronic kidney disease, stage 3 unspecified Status: Acute Assessment and Plan: improving (5) DKA, type 2: Code(s): E11.10 - Type 2 diabetes mellitus with ketoacidosis without coma Status: Acute Assessment and Plan: resolved (6) PVD (peripheral vascular disease): Code(s): I73.9 - Peripheral vascular disease, unspecified Status: Acute Assessment and Plan: stable (7) Abdominal pain: Code(s): R10.9 - Unspecified abdominal pain Status: Acute Assessment and Plan: New abdominal pain today. Exam today remarkable for tympany upper quadrants CXR today shows bowel gas Encouraged pt to be out of bed Subjective Date/time seen: 12/10/21 16:21 Interval history: FU CAD, recent NH, cardiomyopathy with EF 25-30%. Troponin 16 on admission for sepsis, pneumonia, DKA and ALESSANDRA. Remote CABG. CABG report 2005: CABG x5, Dr. Gabriel. 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 He presents to the hospital feeling unwell for several days in the state of diabetic ketoacidosis and acute renal failure. He is not having any obvious chest pain event but his ECG appears to show that an anterior wall infarction has occurred his troponin levels are consistent with this and he is obviously critically ill in this setting. He should be placed on aspirin and clopidogrel as well as he I believe he is already anticoagulated with heparin. Patient is modestly hypotensive and so beta-blockers and ARB are not being administered at this time. We will recommend aggressive supportive care at this time but he is not a reasonable candidate for angiographic evaluation at this time. The patient's ketoacidosis and acute renal failure preclude that at this time. He is not having an acute anterior wall infarction this infarcti
[2021-12-10 16:35] LABS: Glucose Point of Care 145 mg/dl (65-105)
--- NOTE | 2021-12-10 17:16 | PM.IMPN ---
Progress Note: A&P Assessment and Plan (1) Acute respiratory failure: Code(s): J96.00 - Acute respiratory failure, unspecified whether with hypoxia or hypercapnia Status: Acute Assessment and Plan: Resolving, down to 2 L nasal cannula. Suspect this is secondary to pneumonia, low suspicion for aspiration. Legionella negative, suspect pneumococcal pneumonia. Continue antibiotics of Rocephin. Also on Diflucan for possible coccidioidomycosis. Low suspicion for this, will discontinue at this time. (2) Severe sepsis: Code(s): A41.9 - Sepsis, unspecified organism; R65.20 - Severe sepsis without septic shock Status: Acute Assessment and Plan: Resolved, likely secondary to pneumonia (3) Pneumonia: Code(s): J18.9 - Pneumonia, unspecified organism Status: Acute Assessment and Plan: Improving on Rocephin (4) Acute coronary syndrome: Code(s): I24.9 - Acute ischemic heart disease, unspecified Status: Acute Assessment and Plan: STEMI noted with tropes peaking at [address] elevation in V2 and V3, echo showed EF of 20% with grade 2 diastolic dysfunction, appreciate cardiology consultation. Will need ischemic workup at discharge or when stable. (5) Type 2 diabetes mellitus with hyperglycemia, with long-term current use of insulin: Code(s): E11.65 - Type 2 diabetes mellitus with hyperglycemia; Z79.4 - prison (current) use of insulin Status: Acute Assessment and Plan: A1c 11.4, known insulin-dependent diabetic, previously needed insulin drip for DKA on admission, now receiving Lantus and sliding scale. Glucose dropped to 57 over night, Lantus decreased to 35 units during the day, q.h.s. dosing discontinued, was previously getting 7 units. (6) Hypokalemia: Code(s): E87.6 - Hypokalemia Status: Acute Assessment and Plan: Resolved (7) Acute hyponatremia: Code(s): E87.1 - Hypo-osmolality and hyponatremia Status: Acute Assessment and Plan: Unknown etiology, improving slowly, previously thought to be secondary to hyperglycemia and hypovolemia, both of those are resolved and his hyponatremia persists. Appreciate Nephrology consultation. 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 Monitor (8) PVD (peripheral vascular disease): Code(s): I73.9 - Peripheral vascular disease, unspecified Status: Acute Assessment and Plan: Stable, follow-up outpatient (9) Acute renal failure superimposed on stage 3 chronic kidney disease: Code(s): N17.9 - Acute kidney failure, unspecified; N18.30 - Chronic kidney disease, stage 3 unspecified Status: Acute Assessment and Plan: Essentially resolved, appreciate Nephrology consultation Subjective Date/time seen: 12/10/21 11:16 Patient states he is feeling much better today than yesterday. Denies any chest pain or shortness of breath. He did not need the BiPAP overnight. No nausea vomiting or diarrhea. Still requiring 2 L nasal cannula. Good appetite Review of Systems Review of Systems: All systems reviewed & are unremarkable except as noted in HPI and below Exam Const: General: no acute distress HENMT: Mouth: Yes moist mucous membranes Eyes: General: appearance normal, both eyes and all related structures Neck: Neck: no JVD Carotids: no bruits Resp: Effort & Inspection: normal respiratory effort Auscultation: diminished lung sounds Cardio: Rate: regular rate Rhythm: regular rhythm GI: Inspection: non-distended GI Palp: Yes Soft to palpation and No Tenderness to palpation present (GI) Extrem: General: no edema Objective Data Vital Signs Vital Signs: Vital Signs - 24 hr 12/09/21 18:00 12/09/21 19:39 12/09/21 19:49 Temperature Pulse Rate 84 88 Respiratory Rate 20 Blood Pressure Pulse Oximetry 98 95 12/09/21 19:59 12/09/21 20:00 12/09/21 20:31 Temperature 98.9 F Pulse Rate 88 88 87 Respiratory Rate 20 25 H Bloo
[2021-12-10 17:36] LABS: Sodium Urine Random < 5 meq/L
[2021-12-10 18:39] LABS: Coccidioides Ab to F Ag (IgG) NEGATIVE; Coccidioides Ab to TP Ag (IgM) NEGATIVE
[2021-12-10] MEDS: INSULIN GLARGINE (*BKC) 100 UNITS/ML 7 UNITS SUB-Q (21:27)
[2021-12-10 21:38] LABS: Glucose Point of Care 181 mg/dl (65-105)
[2021-12-11] VITALS (21 sets, daily range): BP systolic 117–130; BP diastolic 53–63; PULSE 75–90; RESP 18–25; TEMP 36–36.8; O2SAT 90–97
[2021-12-11] MEDS: IPRATROPIUM BR 0.02% INH SOLN 0.5 MG/2.5 ML VIAL INHALATION ×4 (02:10→19:54)
[2021-12-11] MEDS: LEVALBUTEROL NEB 1.25 MG/3 ML 0.63 MG INHALATION ×4 (02:10→19:54)
[2021-12-11 03:12] LABS: Glucose Point of Care 54 mg/dl (65-105)
--- NOTE | 2021-12-11 04:06 | PC.NURSE ---
Pt called Pct to his room and requested a blood glucose check at 0350, pt was diaphoretic and feeling shaky. Blood glucose was 54. This RN is informed, and assesses that pt is still oriented and able to swallow so pt is given 1 apple juice, 1 orange juice and 2 cups of vanilla pudding. Pt's b/g is rechecked 1 hour later at 0400, pt is at 95 and sleeping well, pt insists that all s/s of hypoglycemia have resolved at this time.
[2021-12-11 04:07] LABS: Glucose Point of Care 95 mg/dl (65-105)
--- NOTE | 2021-12-11 05:20 | PC.NURSE ---
Pt was unaware of 24 hour urine collect. 1 sample was mixed with stool and thrown away. 24 hour clock restart begins after 0500, first void thrown away.
[2021-12-11 06:51] LABS: Albumin Level 2.5 g/dL (3.5-5.1); Anion Gap 4 mmol/L (8-16); Blood Urea Nitrogen 27 mg/dL (9-20); Calcium 6.7 mg/dL (8.4-10.2); Carbon Dioxide 22 mmol/L (22-30); Chloride 97 mmol/L (98-107); Estimated CRCL calculation 45 ml/min; Estimated Glomerular Filt Rate 49; Glucose 125 mg/dL (65-110); Phosphorus 3.5 mg/dL (2.5-4.5); Potassium 3.9 mmol/L (3.4-5.0); Sodium 123 mmol/L (137-145)
--- NOTE | 2021-12-11 07:30 | PC.NURSE ---
PT currently on 3.0 L NC 93% while sleeping, will attempt to wean, spoke with MD Machado this morning, CXR scheduled r/t increase 02 needs. IS encouraged.
[2021-12-11 07:34] LABS: Glucose Point of Care 122 mg/dl (65-105)
[2021-12-11] MEDS: carvediloL 3.125 MG TABLET PO ×2 (08:02→20:42)
[2021-12-11] MEDS: CLOPIDOGREL BISULFATE 75 MG TABLET PO (08:02)
[2021-12-11] MEDS: ENOXAPARIN 40 MG/0.4 ML SYRINGE SUB-Q (08:02)
[2021-12-11] MEDS: guaiFENesin 12 HR 600 MG TABCR PO ×2 (08:02→20:42)
[2021-12-11] MEDS: LOVASTATIN 20 MG TABLET 40 MG PO (08:02)
[2021-12-11] MEDS: PANTOPRAZOLE SODIUM IV 40 MG VIAL IV PUSH (08:02)
[2021-12-11] MEDS: ASPIRIN 81 MG ENTERIC TABLET PO (08:03)
--- NOTE | 2021-12-11 08:19 | PM.PNNEP ---
Progress Note: A&P Additional Plan 1. Chris has chronic kidney disease. His creatinine generally runs around 1.7. Ultrasound is normal. Echo shows EF of only 20-25%. Urine sodium is less than 5. Urine protein to creatinine ratio is pending Urinalysis shows some protein. Most likely this is due to hypertension diabetes and vascular disease. He does have retinopathy but since his urine microalbumin to creatinine ratio has been fairly low I do not think that this is primarily diabetic nephropathy. He may have a component of pre renal azotemia because of his cardiomyopathy. Evaluation for other causes of kidney disease are underway. His creatinine today is 1.4. Perhaps it is lower than baseline because of bedrest and decreased creatinine production. 2. The patient has hypertension. His blood pressure is under good control. 3. The patient has hyponatremia. Sodium was 120 on admission then david to the high 120 and is now back to 123. He has had an occasional low sodium going back a few years. This may be related to his cardiomyopathy and hydrochlorothiazide. Pneumonia is the most likely cause. He has got a poorly functioning left ventricle which could lead to chronic pre renal azotemia and this could contribute to poor water handling. He does have renal insufficiency of course but at this level he should not have a problem with water handling. Will check TSH, cortisol as well. No history of cancer. FAN BALANCER issues are in the differential as well. Consider CT brain. 4. Has cardiomyopathy. Cardiac services on the case 5. The patient has mild anemia. This is most likely due to chronic disease. Kidney disease could be playing a role. His Hemoglobin is not low enough to start Epogen. 6. he has pneumonia. He is getting antibiotics for this. Subjective Date/time seen: 12/11/21 08:19 Interval history: Chris is feeling about the same today. He still has some cough. Appetite is a little better but still not the usual. Review of Systems Cardiovascular: Cardiovascular: Reports no additional cardiovascular complaints Respiratory: Respiratory: Reports no additional respiratory complaints Gastrointestinal: Gastrointestinal: Reports no additional gastrointestinal complaints Genitourinary: Genitourinary: Reports no additional male genitourinary complaints Exam Narrative: WDWN in NAD skin no rash head ncat lungs decreased breath sounds at the bases. Some crackles on the left. cor reg no rub abd BS+ nontender and soft ext 1+ edema. Objective Data Vital Signs Vital Signs: Vital Signs - 24 hr 12/10/21 10:00 12/10/21 10:28 12/10/21 13:57 Temperature 36.5 C Pulse Rate 88 82 82 Respiratory Rate 20 Blood Pressure 114/64 Pulse Oximetry 92 12/10/21 14:27 12/10/21 14:37 12/10/21 19:36 Temperature 36.4 C Pulse Rate 82 80 88 Respiratory Rate 20 20 20 Blood Pressure 114/52 L Pulse Oximetry 90 12/10/21 19:56 12/10/21 20:00 12/10/21 20:06 Temperature Pulse Rate 77 79 Respiratory Rate 20 20 Blood Pressure Pulse Oximetry 93 12/10/21 20:07 12/10/21 20:32 12/10/21 22:35 Temperature Pulse Rate 79 90 84 Respiratory Rate 23 H Blood Pressure Pulse Oximetry 97 93 12/10/21 23:45 12/11/21 00:17 12/11/21 02:10 Temperature 36.4 C Pulse Rate 80 81 84 Respiratory Rate 20 20 20 Blood Pressure 107/56 L Pulse Oximetry 97 94 12/11/21 02:21 12/11/21 03:42 12/11/21 07:31 Temperature 36.0 C L Pulse Rate 80 75 Respiratory Rate 20 22 H Blood Pressure 122/59 L Pulse Oximetry 91 93 12/11/21 08:02 Temperature Pulse Rate 90 Respiratory Rate Blood Pressure Pulse Oximetry Intake/Output Intake/Output: Intake & Output 12/08/21 12/09/21 12/10/21 12/11/21 23:59 23:59 23:59 23:59 Intake Total 2496 2143 970 200 Output Total 923 318 7507 300 Balance 1671 1293 -230 -100 Meds/Results Medications: Active Medications Generic Name D
--- NOTE | 2021-12-11 08:58 | PC.NURSE ---
called pharmacy for rocephin 2 g IV infusion and diflucin IV infusing, awaiting pharmacy to deliver medication.
--- NOTE | 2021-12-11 09:01 | PC.NURSE ---
called and reported na 123 to MD Green and Md Doe
--- NOTE | 2021-12-11 09:07 | PC.NURSE ---
cxr reports no singificant changes since 12/10/21
[2021-12-11] MEDS: INSULIN GLARGINE (*BKC) 100 UNITS/ML 35 UNITS SUB-Q (09:14)
[2021-12-11] MEDS: cefTRIAXone 2 GM in SODIUM CHLORIDE 0.9% IV 100 ML 200 ML IVPB (09:25)
[2021-12-11] MEDS: FLUCONAZOLE 200 MG/NACL 100 ML 200 MG/100 ML BAG 100 MG IVPB (10:00)
--- NOTE | 2021-12-11 11:05 | PC.NURSE ---
pt 1.5 L NC 97% sleeping soundly
[2021-12-11 12:02] LABS: Glucose Point of Care 199 mg/dl (65-105)
--- NOTE | 2021-12-11 14:32 | PM.IMPN ---
Progress Note: A&P Assessment and Plan (1) Acute respiratory failure: Code(s): J96.00 - Acute respiratory failure, unspecified whether with hypoxia or hypercapnia Status: Acute Assessment and Plan: Resolving, down to 2 L nasal cannula. Suspect this is secondary to pneumonia, low suspicion for aspiration. Legionella negative, pneumococcal ag positive. Continue antibiotics of Rocephin, antibiotic day 8 today. Will discontinue December 13 to complete a 10 day course. Coccidiomycosis antigen came back negative, Diflucan discontinued. additionally, cdc recommends no treatment for coccidiomycosis. therefore risk vs benefit weighs against treating with antifungals. (2) Severe sepsis: Code(s): A41.9 - Sepsis, unspecified organism; R65.20 - Severe sepsis without septic shock Status: Acute Assessment and Plan: Resolved, likely secondary to pneumonia (3) Pneumonia: Code(s): J18.9 - Pneumonia, unspecified organism Status: Acute Assessment and Plan: Improving on Rocephin, antibiotic day 8 (4) Acute coronary syndrome: Code(s): I24.9 - Acute ischemic heart disease, unspecified Status: Acute Assessment and Plan: STEMI noted with tropes peaking at [address] elevation in V2 and V3, echo showed EF of 20% with grade 2 diastolic dysfunction, appreciate cardiology consultation. Will need ischemic workup at discharge or when stable. (5) Type 2 diabetes mellitus with hyperglycemia, with long-term current use of insulin: Code(s): E11.65 - Type 2 diabetes mellitus with hyperglycemia; Z79.4 - senior care (current) use of insulin Status: Acute Assessment and Plan: A1c 11.4, known insulin-dependent diabetic, previously needed insulin drip for DKA on admission, now receiving Lantus and sliding scale. Glucose dropped to 57 over night, Lantus decreased to 35 units during the day, q.h.s. dosing discontinued, was previously getting 7 units. (6) Hypokalemia: Code(s): E87.6 - Hypokalemia Status: Acute Assessment and Plan: Resolved (7) Acute hyponatremia: Code(s): E87.1 - Hypo-osmolality and hyponatremia Status: Acute Assessment and Plan: Unknown etiology, improving slowly, previously thought to be secondary to hyperglycemia and hypovolemia, both of those are resolved and his hyponatremia persists. Appreciate Nephrology consultation. 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 Unsure why this is persisting. (8) PVD (peripheral vascular disease): Code(s): I73.9 - Peripheral vascular disease, unspecified Status: Acute Assessment and Plan: Stable, follow-up outpatient (9) Acute renal failure superimposed on stage 3 chronic kidney disease: Code(s): N17.9 - Acute kidney failure, unspecified; N18.30 - Chronic kidney disease, stage 3 unspecified Status: Acute Assessment and Plan: Essentially resolved, appreciate Nephrology consultation Additional Plan DVT prophylaxis: Heparin infusion Stress ulcer prophylaxis: Protonix Nutrition: Tolerating diet Discussed with patient and his 2 daughters at bedside and updated them with patient's condition and current treatment plan Code status: Full code Incentive spirometry Transfer out of ICU today Subjective Date/time seen: 12/11/21 14:32 Interval history: Patient a little better than yesterday. He has fluctuating between being on room air and 2 L nasal cannula due to occasional shortness of breath. He is very frustrated that he is still here and once his sodiums normalize so he can go home. He has no other complaints. No events noted overnight. Review of Systems Review of Systems: All systems reviewed & are unremarkable except as noted in HPI and below ROS unobtainable: Yes unobtainable due to mental status (Lethargy) Exam Const: General: no acute distress, well developed, ill appearing and lethargic Nutritional Appearance: average body habitus Orientation/consciousn
[2021-12-11 16:31] LABS: Glucose Point of Care 225 mg/dl (65-105)
[2021-12-11 16:54] LABS: Sodium 123 mmol/L (137-145)
[2021-12-11] MEDS: INSULIN ASPART (*BKC) 100 UNITS/ML SUB-Q (17:14)
--- NOTE | 2021-12-11 20:00 | PCRCNOTE ---
Pt's 20:00 nebulizer treatment was administered at 19:54. RT was unable to scan the levalbuterol neb because it was documented as not given earlier in the day by another staff member. Both levalbuterol and atrovent were administered at 19:54. RT electric repair supervisor to update MAR when available.
[2021-12-11 21:28] LABS: Glucose Point of Care 203 mg/dl (65-105)
[2021-12-12] VITALS (16 sets, daily range): BP systolic 114–132; BP diastolic 52–67; PULSE 74–86; RESP 16–20; TEMP 35.7–37; O2SAT 86–94
[2021-12-12] MEDS: IPRATROPIUM BR 0.02% INH SOLN 0.5 MG/2.5 ML VIAL INHALATION ×4 (02:48→20:30)
[2021-12-12] MEDS: LEVALBUTEROL NEB 1.25 MG/3 ML 0.63 MG INHALATION ×4 (02:49→20:29)
--- NOTE | 2021-12-12 02:59 | PCRCNOTE ---
At 02:00 pt asked to take a break from the BiPAP. After receiving nebulizer treatment at approximately 02:45, pt was asked if he would like to go back on BiPAP. He stated that he's done for the night. Pt resting comfortably on 2L NC with sats ~92%.
[2021-12-12 05:54] LABS: Total Protein Urine Random 34 mg/dL
[2021-12-12 06:16] LABS: Creatinine Urine 115.4 mg/dL; Ur Ttl Prot Creatinine Ratio 0.29 mg/mg (0-0.20)
[2021-12-12 06:19] LABS: Albumin Level 2.4 g/dL (3.5-5.1); Anion Gap 5 mmol/L (8-16); Blood Urea Nitrogen 22 mg/dL (9-20); Calcium 6.9 mg/dL (8.4-10.2); Carbon Dioxide 24 mmol/L (22-30); Chloride 97 mmol/L (98-107); Estimated CRCL calculation 42 ml/min; Estimated Glomerular Filt Rate 46; Glucose 98 mg/dL (65-110); Phosphorus 3.3 mg/dL (2.5-4.5); Potassium 3.6 mmol/L (3.4-5.0); Sodium 126 mmol/L (137-145)
[2021-12-12 07:45] LABS: Glucose Point of Care 88 mg/dl (65-105)
[2021-12-12] MEDS: cefTRIAXone 2 GM in SODIUM CHLORIDE 0.9% IV 100 ML 200 ML IVPB (08:23)
[2021-12-12] MEDS: ASPIRIN 81 MG ENTERIC TABLET PO (08:24)
[2021-12-12] MEDS: carvediloL 3.125 MG TABLET PO ×2 (08:24→21:17)
[2021-12-12] MEDS: CLOPIDOGREL BISULFATE 75 MG TABLET PO (08:25)
[2021-12-12] MEDS: LOVASTATIN 20 MG TABLET 40 MG PO (08:25)
[2021-12-12] MEDS: guaiFENesin 12 HR 600 MG TABCR PO ×2 (08:25→21:17)
[2021-12-12] MEDS: INSULIN GLARGINE (*BKC) 100 UNITS/ML 35 UNITS SUB-Q (08:25)
[2021-12-12] MEDS: PANTOPRAZOLE SODIUM IV 40 MG VIAL IV PUSH (08:25)
--- NOTE | 2021-12-12 08:27 | PM.PNNEP ---
Progress Note: A&P Additional Plan 1. Chris has chronic kidney disease. His creatinine generally runs around 1.7. Ultrasound is normal. Echo shows EF of only 20-25%. Urine sodium is less than 5. Urine protein to creatinine ratio is pending Urinalysis shows some protein. Most likely this is due to hypertension, diabetes, pre renal azotemia due to cardiomyopathy, and vascular disease. current creatinine is 1.5. 2. The patient has hypertension. His blood pressure is under good control. 3. The patient has hyponatremia. Sodium was 120 on admission then david to the high 120s, then fell to 123 and is now up to 125. He has had an occasional low sodium going back a few years. This may be related to his cardiomyopathy and hydrochlorothiazide. Pneumonia is the most likely cause. He has got a poorly functioning left ventricle which could lead to chronic pre renal azotemia and this could contribute to poor water handling. He does have renal insufficiency of course but at this level he should not have a problem with water handling. Will check TSH, cortisol. No history of cancer. LAUNDRY PRICING CLERK issues are in the differential as well. Check CT brain. check another sodium level tomorrow. 4. Has cardiomyopathy. Cardiac services on the case 5. The patient has mild anemia. This is most likely due to chronic disease. Kidney disease could be playing a role. His Hemoglobin is not low enough to start Epogen. 6. he has pneumonia. He is getting antibiotics for this. Symptoms are much better. Subjective Date/time seen: 12/12/21 08:27 Interval history: Chris is feeling about the same today. Cough is better. He is eager for discharge. He is very thirsty. Appetite is a little better. Exam Narrative: WDWN in NAD skin no rash or subcu nodules head ncat lungs decreased breath sounds at the bases. Some crackles on the left. cor reg no rub or gallop abd BS+ nontender and soft ext 1+ edema. Objective Data Vital Signs Vital Signs: Vital Signs - 24 hr 12/11/21 08:42 12/11/21 08:43 12/11/21 08:49 Temperature Pulse Rate 83 80 Respiratory Rate 20 20 Blood Pressure Pulse Oximetry 90 12/11/21 11:06 12/11/21 13:57 12/11/21 14:08 Temperature Pulse Rate 90 89 Respiratory Rate 18 18 Blood Pressure Pulse Oximetry 97 12/11/21 15:15 12/11/21 16:00 12/11/21 19:23 Temperature 36.3 C L 36.4 C L 36.8 C Pulse Rate 85 85 89 Respiratory Rate 18 18 18 Blood Pressure 117/53 L 130/63 122/56 L Pulse Oximetry 92 92 93 12/11/21 19:55 12/11/21 20:00 12/11/21 20:04 Temperature Pulse Rate 88 89 89 Respiratory Rate 20 18 18 Blood Pressure Pulse Oximetry 91 91 12/11/21 20:42 12/11/21 23:30 12/12/21 02:49 Temperature Pulse Rate 89 84 81 Respiratory Rate 25 H 16 Blood Pressure Pulse Oximetry 92 12/12/21 02:55 12/12/21 03:30 Temperature 35.7 C L Pulse Rate 80 81 Respiratory Rate 16 17 Blood Pressure 114/52 L Pulse Oximetry 92 Intake/Output Intake/Output: Intake & Output 12/09/21 12/10/21 12/11/21 12/12/21 23:59 23:59 23:59 23:59 Intake Total 2143 1170 2430 80 Output Total 850 1200 1100 Balance 1293 -30 1330 80 Meds/Results Medications: Active Medications Generic Name Dose Route Start Last Admin Trade Name Freq PRN Reason Stop Dose Admin Acetaminophen 650 mg 12/05/21 00:07 12/09/21 23:26 Acetaminophen 325 Mg Tablet PO 650 mg Q4H PRN Administration Mild Pain (1-3) or Fever Aspirin 81 mg 12/05/21 09:00 12/11/21 08:03 Aspirin 81 Mg Enteric Tablet PO 81 mg QAM KAYLI Administration Carvedilol 3.125 mg 12/07/21 10:00 12/11/21 20:42 Carvedilol 3.125 Mg Tablet PO 3.125 mg Q12HR KAYLI Administration Clopidogrel Bisulfate 75 mg 12/05/21 11:59 12/11/21 08:02 Clopidogrel Bisulfate 75 Mg Tablet PO 75 mg DAILY KAYLI Administration Dextrose 12.5 gm 12/05/21 02:12 Dextrose 50% 25 Gm/50 Ml Syringe I
[2021-12-12] MEDS: ENOXAPARIN 40 MG/0.4 ML SYRINGE SUB-Q (08:28)
--- NOTE | 2021-12-12 08:28 | PM.PNCARD ---
Progress Note: A&P Assessment and Plan (1) Non-ST elevation [place] (NSTEMI): Code(s): I21.4 - Non-ST elevation (NSTEMI) myocardial infarction Status: Acute Assessment and Plan: CAD, CABG in 2004, admitted with a non-STEMI. H/O remote CABG. Patient appears hemodynamically stable and has had no chest pain or angina. Severe LV dysfunction; probably all new. Do not know if there is any component Tako-Tsubo cardiomyopathy or just severe multivessel CAD causing severe left ventricular dysfunction. No evidence of heart failure at this time. Initially heparinized. Continue medical therapy with aspirin, Plavix, statin, carvedilol Eventual ischemia evaluation once other medical issues have resolved/stabilized. This would be a high risk procedure and will probably not be carried out at this hospital. Echo 12/06/2021: Mild left ventricular enlargement with moderate LVH. Mild to moderate hypokinesis of the base of the heart with severe hypokinesis the been distal segments, suggestive of Takotsubo cardiomyopathy. In addition is a focal area mid/distal anterolateral akinesis. EF measured 25%, visual EF 25-30%. Grade diastolic dysfunction. No significant valvular abnornmalities. Cardiology will see him on an as needed basis at this point. Recommended cardiology follow up at [facility] as outpatient, he has had prior CABG and left heart cath performed there. (2) Severe sepsis: Code(s): A41.9 - Sepsis, unspecified organism; R65.20 - Severe sepsis without septic shock Status: Acute Assessment and Plan: improving, lactic acidosis resolved (3) Pneumonia: Code(s): J18.9 - Pneumonia, unspecified organism Status: Acute Assessment and Plan: on oxygen and antibiotics (4) Acute renal failure superimposed on stage 3 chronic kidney disease: Code(s): N17.9 - Acute kidney failure, unspecified; N18.30 - Chronic kidney disease, stage 3 unspecified Status: Acute Assessment and Plan: improving (5) DKA, type 2: Code(s): E11.10 - Type 2 diabetes mellitus with ketoacidosis without coma Status: Acute Assessment and Plan: resolved (6) PVD (peripheral vascular disease): Code(s): I73.9 - Peripheral vascular disease, unspecified Status: Acute Assessment and Plan: stable (7) Abdominal pain: Code(s): R10.9 - Unspecified abdominal pain Status: Acute Assessment and Plan: Resolved Subjective Date/time seen: 12/12/21 08:28 Interval history: FU CAD, recent TX, cardiomyopathy with EF 25-30%. Troponin 16 on admission for sepsis, pneumonia, DKA and ALESSANDRA. Remote CABG. CABG report 2005: CABG x5, Dr. Gabriel. 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 He presents to the hospital feeling unwell for several days in the state of diabetic ketoacidosis and acute renal failure. He is not having any obvious chest pain event but his ECG appears to show that an anterior wall infarction has occurred his troponin levels are consistent with this and he is obviously critically ill in this setting. He should be placed on aspirin and clopidogrel as well as he I believe he is already anticoagulated with heparin. Patient is modestly hypotensive and so beta-blockers and ARB are not being administered at this time. We will recommend aggressive supportive care at this time but he is not a reasonable candidate for angiographic evaluation at this time. The patient's ketoacidosis and acute renal failure preclude that at this time. He is not h
--- NOTE | 2021-12-12 10:47 | PM.IMPN ---
Progress Note: A&P Assessment and Plan (1) Acute respiratory failure: Code(s): J96.00 - Acute respiratory failure, unspecified whether with hypoxia or hypercapnia Status: Acute Assessment and Plan: Resolving, down to 2 L nasal cannula but hypoxic with activity. Suspect this is secondary to pneumonia, low suspicion for aspiration. Legionella negative, pneumococcal Ag positive. Continue antibiotics of Rocephin, antibiotic day 9 today. Will discontinue December 13 to complete a 10 day course. Coccidiomycosis antigen came back negative so Diflucan discontinued. Consider CHF as well. BP soft but renal function better. lasix IV once. (2) Severe sepsis: Code(s): A41.9 - Sepsis, unspecified organism; R65.20 - Severe sepsis without septic shock Status: Acute Assessment and Plan: Resolved, likely secondary to pneumonia (3) Pneumonia: Code(s): J18.9 - Pneumonia, unspecified organism Status: Acute Assessment and Plan: Improving on Rocephin (4) Acute coronary syndrome: Code(s): I24.9 - Acute ischemic heart disease, unspecified Status: Acute Assessment and Plan: Acute coronary syndrome with EKG showing ST-elevation in V2 and V3 with no reciprocal changes and Trop to 16 -> 6 consistent with STEMI. Cardiology consulted and appreciate their input. Echo showing EF 20-25% with Grade II diastolic dysfunction. No further chest pain. Heparin gtt was stopped. Continue ASA, Plavix, Coreg and statin. NTG available prn. Ischemia evaluation when able. (5) Type 2 diabetes mellitus with hyperglycemia, with long-term current use of insulin: Code(s): E11.65 - Type 2 diabetes mellitus with hyperglycemia; Z79.4 - group home (current) use of insulin Status: Acute Assessment and Plan: A1c 11.4, known insulin-dependent diabetic, previously needed insulin drip for DKA on admission, now receiving Lantus and sliding scale. Lantus down to 35 units during the day. Glucose 98 this morning but was up to 225 yesterday. Patinet eating 25-50% of meals. Will continue current regiment for now. Convert back to his 75/25 in 1-2 days. (6) Hypokalemia: Code(s): E87.6 - Hypokalemia Status: Acute Assessment and Plan: Resolved (7) Acute hyponatremia: Code(s): E87.1 - Hypo-osmolality and hyponatremia Status: Acute Assessment and Plan: Unknown etiology but consider related to fluid overload and poor renal perfusion from the EF 20%. Na 126 today. Shalom <5. Appreciate Nephrology consultation. 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 Unsure why this is persisting. (8) PVD (peripheral vascular disease): Code(s): I73.9 - Peripheral vascular disease, unspecified Status: Acute Assessment and Plan: Stable, follow-up outpatient (9) Acute renal failure superimposed on stage 3 chronic kidney disease: Code(s): N17.9 - Acute kidney failure, unspecified; N18.30 - Chronic kidney disease, stage 3 unspecified Status: Acute Assessment and Plan: Baseline Cr 1.3-1.6. Cr 2.7 on admission. Suspect related to infection, ATN, DKA and dehydration. Renal US normal. Cr better today and at baseline. (10) LV dysfunction: Code(s): I51.9 - Heart disease, unspecified Status: Acute Assessment and Plan: Echo showing EF 20-25% with Grade II diastolic dysfunction. Consider stress response or ischemic etiology resulting in the LV dysfunction. Medical management. As above. Add CRISELDA/ARB or Entresto when able. (11) DKA, type 2: Code(s): E11.10 - Type 2 diabetes mellitus with ketoacidosis without coma Status: Acute Assessment and Plan: Patient with hyperglycemia with blood sugars of 675 on admission with an anion gap of 28. Some of the anion gap may be related to lactic acidosis as well. Patient was fluid resuscitated in the ED. He was started on DKA protocol with IV fluids and insulin drip. Hemoglobin A1c wa
--- NOTE | 2021-12-12 11:09 | PC.NURSE ---
Dr Byrd notified of ol2 requirements increasing to 6l per nasal cannula with activity. o2 was 86% addis 2l and had to increase to 6l nasal cannulat to ghet 94%.
[2021-12-12 11:34] LABS: Glucose Point of Care 145 mg/dl (65-105)
[2021-12-12] MEDS: FUROSEMIDE INJ 40 MG/4 ML VIAL 20 MG IV PUSH (13:57)
--- NOTE | 2021-12-12 14:04 | PCOTNOTE ---
Patient reports just getting cleaned up with STEEL GRINDER and just getting back to bed. Patient declined to participate in ADLs at this time. Patient not seen for OT. Will continue per plan of care tomorrow.
[2021-12-12 16:21] LABS: Glucose Point of Care 189 mg/dl (65-105)
[2021-12-12] MEDS: SODIUM CHLORIDE 500 MG TABLET PO (18:16)
[2021-12-12 20:58] LABS: Glucose Point of Care 243 mg/dl (65-105)
[2021-12-13] VITALS (28 sets, daily range): BP systolic 120–132; BP diastolic 54–71; PULSE 70–736; RESP 18–27; TEMP 36.7–37.9; O2SAT 86–98
[2021-12-13 00:50] LABS: Glucose Point of Care 207 mg/dl (65-105)
[2021-12-13] MEDS: LEVALBUTEROL NEB 1.25 MG/3 ML 0.63 MG INHALATION ×4 (02:39→19:52)
[2021-12-13] MEDS: IPRATROPIUM BR 0.02% INH SOLN 0.5 MG/2.5 ML VIAL INHALATION ×4 (02:39→19:52)
[2021-12-13] MEDS: LIDOCAINE HCL 2% GEL UROJET 10 ML PKG MUCOUS MEM (05:12)
[2021-12-13 06:33] LABS: Basophils Absolute Auto 0.2 K/mm3 (0.0-0.1); Basophils Percent Auto 0.7 % (0.2-1.2); Eosinophils Absolute Auto 0.1 K/mm3 (0-0.3); Eosinophils Percent Auto 0.5 % (0-4.4); Hematocrit 34.1 % (42.0-52.0); Hemoglobin 11.4 g/dL (14.0-18.0); Immature Granulocyte Absolute 0.55 K/mm3 (0.00-0.031); Immature Granulocyte Percent A 2.5 % (0-0.5); Lymphocytes Absolute Auto 1.32 K/mm3 (0.9-3.2); Mean Corpuscular HGB Conc 33.4 g/dl (32-36); Mean Corpuscular Hemoglobin 29.2 pg (26-34); Mean Corpuscular Volume 87.4 fl (80-100); Monocytes Absolute Auto 1.4 K/mm3 (0.1-0.6); Monocytes Percent Auto 6.1 % (2.6-8.5); Neutrophils Absolute Auto 18.6 K/mm3 (1.3-6.7); Neutrophils Percent Auto 84.2 % (45.5-73.1); Platelet Count Result 504 k/mm3 (150-375); Red Cell Distribution Width 14.6 % (11.5-14.5); White Blood Count 22.1 K/mm3 (4.5-10.0)
[2021-12-13 06:40] LABS: Alanine Aminotransferase 28 U/L (4-50); Albumin Level 2.4 g/dL (3.5-5.1); Alkaline Phosphatase 92 U/L (38-126); Anion Gap 6 mmol/L (8-16); Aspartate Amino Transferase 58 U/L (17-59); Bilirubin,Total 0.4 mg/dL (0.2-1.3); Blood Urea Nitrogen 20 mg/dL (9-20); Calcium 6.9 mg/dL (8.4-10.2); Carbon Dioxide 25 mmol/L (22-30); Chloride 96 mmol/L (98-107); Estimated CRCL calculation 42 ml/min; Estimated Glomerular Filt Rate 46; Glucose 166 mg/dL (65-110); Phosphorus 3.6 mg/dL (2.5-4.5); Potassium 3.9 mmol/L (3.4-5.0); Sodium 127 mmol/L (137-145)
--- NOTE | 2021-12-13 07:21 | PM.PNNEP ---
Progress Note: A&P Additional Plan 1. Chris has chronic kidney disease. His creatinine generally runs around 1.7. Ultrasound is normal. Echo shows EF of only 20-25%. Urine sodium is less than 5. Urine protein to creatinine ratio is 290. Urinalysis shows some protein. Complements okay. Remainder of serology is pending. Immunofixation pending Most likely this is due to hypertension, diabetes, pre renal azotemia due to cardiomyopathy, and vascular disease. current creatinine is 1.5. The patient looks like he is volume overloaded. Chest x-ray has pleural effusion. Discussed with Dr. Byrd yesterday. He was given diuretics. Sodium still david to 127. Will give more diuretics today. He also added salt tablets to keep the sodium up. 2. The patient has hypertension. His blood pressure is under good control. 3. The patient has hyponatremia. Sodium was 120 on admission then david to the high 120s, then fell to 123 and is now up to 125. He has had an occasional low sodium going back a few years. This may be related to his cardiomyopathy and hydrochlorothiazide. Pneumonia is the most likely cause. He has got a poorly functioning left ventricle which could lead to chronic pre renal azotemia and this could contribute to poor water handling. He does have renal insufficiency of course but at this level he should not have a problem with water handling. Will check TSH, cortisol. No history of cancer. LPN MEDICAL ASSISTANT issues are in the differential as well. Patient refused CT brain. He does not have any symptoms of LPN MEDICAL ASSISTANT issues. 5/2 Na 126 5/3 Na 127 now on fluid restriction, lasix and salt tabs. check a sodium at 4pm 4. Has cardiomyopathy. Cardiac services on the case 5. The patient has mild anemia. This is most likely due to chronic disease. Kidney disease could be playing a role. His Hemoglobin is not low enough to start Epogen. 6. he has pneumonia. He is getting antibiotics for this. Symptoms are much better. Subjective Date/time seen: 12/13/21 07:21 Interval history: Chris is feeling about the same today. Cough is still present. He feels count of chronic he. Not sleeping very well. He is very thirsty. Exam Narrative: WDWN in NAD skin no rash or subcu nodules head ncat lungs decreased breath sounds at the bases, more decreased on the right than on the left. Some crackles on the left. cor reg no rub or gallop abd BS+ nontender and soft ext 1+ edema. Objective Data Vital Signs Vital Signs: Vital Signs - 24 hr 12/12/21 08:00 12/12/21 08:24 12/12/21 08:45 Temperature Pulse Rate 74 83 Respiratory Rate 16 Blood Pressure Pulse Oximetry 92 12/12/21 08:53 12/12/21 09:09 12/12/21 10:30 Temperature Pulse Rate 86 Respiratory Rate 16 Blood Pressure Pulse Oximetry 92 86 L 12/12/21 11:19 12/12/21 14:45 12/12/21 16:00 Temperature 37.0 C Pulse Rate 82 81 Respiratory Rate 18 20 Blood Pressure 124/60 Pulse Oximetry 91 94 12/12/21 20:06 12/12/21 20:30 12/12/21 20:37 Temperature 36.4 C L Pulse Rate 85 86 Respiratory Rate 18 18 Blood Pressure 132/67 Pulse Oximetry 93 91 12/12/21 20:40 12/13/21 00:00 12/13/21 02:39 Temperature 36.8 C Pulse Rate 84 84 83 Respiratory Rate 18 18 20 Blood Pressure 132/54 L Pulse Oximetry 90 12/13/21 02:45 12/13/21 04:17 Temperature 36.9 C Pulse Rate 82 84 Respiratory Rate 18 22 H Blood Pressure 121/55 L Pulse Oximetry 93 Intake/Output Intake/Output: Intake & Output 12/10/21 12/11/21 12/12/21 12/13/21 23:59 23:59 23:59 23:59 Intake Total 1170 2430 1320 150 Output Total 1200 1100 1300 1100 Balance -30 1330 20 -950 Meds/Results Medications: Active Medications Generic Name Dose Route Start Last Admin Trade Name Freq PRN Reason Stop Dose Admin Acetaminophen 650 mg 12/05/21 00:07 12/09/21 23:26 Acetaminophen 325 Mg Tablet PO 650 mg Q4H PRN Administration Mi
[2021-12-13 08:17] LABS: Glucose Point of Care 168 mg/dl (65-105)
[2021-12-13] MEDS: cefTRIAXone 2 GM in SODIUM CHLORIDE 0.9% IV 100 ML IVPB (08:18)
[2021-12-13] MEDS: ASPIRIN 81 MG ENTERIC TABLET PO (08:19)
[2021-12-13] MEDS: FUROSEMIDE INJ 40 MG/4 ML VIAL IV PUSH ×2 (08:20→17:11)
[2021-12-13] MEDS: CLOPIDOGREL BISULFATE 75 MG TABLET PO (08:20)
[2021-12-13] MEDS: ENOXAPARIN 40 MG/0.4 ML SYRINGE SUB-Q (08:20)
[2021-12-13] MEDS: carvediloL 3.125 MG TABLET PO ×2 (08:20→20:51)
[2021-12-13] MEDS: LOVASTATIN 20 MG TABLET 40 MG PO (08:21)
[2021-12-13] MEDS: guaiFENesin 12 HR 600 MG TABCR PO ×2 (08:21→20:52)
[2021-12-13] MEDS: PANTOPRAZOLE SODIUM IV 40 MG VIAL IV PUSH (08:21)
[2021-12-13] MEDS: SODIUM CHLORIDE 500 MG TABLET PO ×2 (08:21→17:11)
[2021-12-13] MEDS: INSULIN GLARGINE (*BKC) 100 UNITS/ML 35 UNITS SUB-Q (08:24)
--- NOTE | 2021-12-13 09:47 | PCOTNOTE ---
Patient on bedside commode when therapist arrived. Per RN, patient now on venti mask at 50%. RN took mask off prior to therapist assisting patient with tiffany care following BM. Patient's O2 reading 80% prior to any activity. RN notified and placed mask back on patient. RN suggested therapy hold for today due to increased O2 needs. Patient assisted with tiffany care and donning underwear, and then back into bed to recover O2 sats. Patient approx. 85% when therapist left, with RN present and patient wearing venti mask.
--- NOTE | 2021-12-13 10:16 | PC.NURSE ---
Dr Byrd notified of having to place pt on bipap after sats in 80's on venti mask after going to bathroom. Pt refused wear bipap last night.
--- NOTE | 2021-12-13 10:20 | PCPTNOTE ---
The patient treatment was not able to be completed on 12/13/2021 due to decrease in SpO2 SATs. Per RN patient on BiPAP and to hold PT today. Will plan to continue treatment per plan of care.
--- NOTE | 2021-12-13 10:36 | PM.IMPN ---
Progress Note: A&P Assessment and Plan (1) Acute respiratory failure: Code(s): J96.00 - Acute respiratory failure, unspecified whether with hypoxia or hypercapnia Status: Acute Assessment and Plan: Initially, acute respiratory failure related to pneumonia. Legionella Ag negative, pneumococcal Ag positive. Blood cultures negative. Coccidiomycosis antigen came back negative so Diflucan discontinued. He was started on broad-spectrum antibiotics but narrowed to Rocephin. Sputum result returned on 12/12/2021 growing Staph aureus so vancomycin started. Sensitivity shows that is MRSA. Chest x-ray looks worse today with increasing infiltrates and moderate right effusion.. This was reviewed personally. White count is now 22K. Respiratory status is worsening. He did have good diuresis with the Lasix and this has been resumed. Continue IV Lasix as renal function and blood pressure tolerate. Continue Rocephin and vancomycin. Discussed with manager legal. Plan for diagnostic and therapeutic right thoracentesis. Removed IMU. Continue BiPAP today and wean off as tolerated. 35 minutes spent on critical care time. Discussed with manager legal. (2) Severe sepsis: Code(s): A41.9 - Sepsis, unspecified organism; R65.20 - Severe sepsis without septic shock Status: Acute Assessment and Plan: Resolved, likely secondary to pneumonia. (3) Pneumonia: Code(s): J18.9 - Pneumonia, unspecified organism Status: Acute Assessment and Plan: As above. Continue Rocephin. Vancomycin added yesterday. (4) Acute coronary syndrome: Code(s): I24.9 - Acute ischemic heart disease, unspecified Status: Acute Assessment and Plan: Acute coronary syndrome with EKG showing ST-elevation in V2 and V3 with no reciprocal changes and Trop to 16 -> 6 consistent with STEMI. Cardiology consulted and appreciate their input. Echo showing EF 20-25% with Grade II diastolic dysfunction. No further chest pain. Heparin gtt was stopped. Continue ASA, Plavix, Coreg and statin. NTG available prn. Ischemia evaluation when able. (5) Type 2 diabetes mellitus with hyperglycemia, with long-term current use of insulin: Code(s): E11.65 - Type 2 diabetes mellitus with hyperglycemia; Z79.4 - prison (current) use of insulin Status: Acute Assessment and Plan: A1c 11.4. Patient with known insulin-dependent diabetes. Admitted and found to have DKA treated with DKA protocol. Continue AccuCheks covering with sliding scale. Hypoglycemia protocol available as needed. front of house manager and chemical radiation technician were consulted. Lantus down to 35 units during the day. Glucose 166 this morning. Patient eating small meals. Will continue current regiment for now. Convert back to his 75/25 when able (6) Hypokalemia: Code(s): E87.6 - Hypokalemia Status: Acute Assessment and Plan: Resolved (7) Acute hyponatremia: Code(s): E87.1 - Hypo-osmolality and hyponatremia Status: Acute Assessment and Plan: Unknown etiology but consider related to fluid overload and poor renal perfusion from the EF 20%. Na 127 today. Shalom <5. Appreciate Nephrology consultation. 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 Better with Lasix - maybe due to 'unloading' of the heart. Follow on Lasix. NaCl tabs added yesterday as well (8) PVD (peripheral vascular disease): Code(s): I73.9 - Peripheral vascular disease, unspecified Status: Acute Assessment and Plan: Stable, follow-up outpatient (9) Acute renal failure superimposed on stage 3 chronic kidney disease: Code(s): N17.9 - Acute kidney failure, unspecified; N18.30 - Chronic kidney disease, stage 3 unspecified Status: Acute Assessment and Plan: Baseline Cr 1.3-1.6. Cr 2.7 on admission. Suspect related to infection, ATN, DKA and dehydration. Renal US normal. Cr at baseline. (10) LV dysfunction: Code(s): I51.9 - Heart di
[2021-12-13 11:12] LABS: Lactate Dehydrogenase 583 U/L (313-618); Triglycerides 60 mg/dL (<150)
[2021-12-13 11:14] LABS: INR 1.4; Prothrombin Time 16.7 Seconds (11.1-14.7)
[2021-12-13 11:36] LABS: Cholesterol 64 mg/dL (0-200)
[2021-12-13 12:01] LABS: Glucose Point of Care 225 mg/dl (65-105)
[2021-12-13 12:58] LABS: Kappa\\Lambda Light Chains 0.98 (0.26-1.65); Lambda Light Chain 85.4 mg/L (5.7-26.3)
--- NOTE | 2021-12-13 13:56 | PC.NURSE ---
This patient, Chris Handley, was transferred to icu on 12/13/21 at 1356. Personal belongings sent with patient. Report given to Jennie GARRIDO. Appropriate documentation sent with patient.
[2021-12-13 14:35] LABS: Complement Total CH50 >60 U/mL (31-60)
[2021-12-13 16:07] LABS: Sodium 119 mmol/L (137-145)
[2021-12-13 16:57] LABS: Sodium 123 mmol/L (137-145)
[2021-12-13 17:15] LABS: Glucose Point of Care 229 mg/dl (65-105)
[2021-12-13] MEDS: INSULIN ASPART (*BKC) 100 UNITS/ML SUB-Q (17:15)
--- NOTE | 2021-12-13 17:15 | PC.NURSE ---
Spoke with Dr. West regarding this patient's sodium level, it had gone from 127 to 123. Patient had been following his fluid restriction for the day, but was not producing much urine. Dr. West said to obtain a bladder scan, and if the volume was > 200, to insert a urinary catheter on the patient.
[2021-12-13 21:00] LABS: Glucose Point of Care 128 mg/dl (65-105)
[2021-12-14] VITALS (32 sets, daily range): BP systolic 117–125; BP diastolic 57–61; PULSE 69–94; RESP 16–26; TEMP 37.4–38.4; O2SAT 89–97
[2021-12-14] MEDS: LEVALBUTEROL NEB 1.25 MG/3 ML 0.63 MG INHALATION ×4 (02:33→20:03)
[2021-12-14] MEDS: IPRATROPIUM BR 0.02% INH SOLN 0.5 MG/2.5 ML VIAL INHALATION ×4 (02:33→20:03)
[2021-12-14 05:04] LABS: Basophils Absolute Auto 0.1 K/mm3 (0.0-0.1); Basophils Percent Auto 0.4 % (0.2-1.2); Eosinophils Absolute Auto 0.1 K/mm3 (0-0.3); Eosinophils Percent Auto 0.3 % (0-4.4); Hematocrit 30.7 % (42.0-52.0); Hemoglobin 10.6 g/dL (14.0-18.0); Immature Granulocyte Absolute 0.37 K/mm3 (0.00-0.031); Immature Granulocyte Percent A 1.6 % (0-0.5); Lymphocytes Absolute Auto 1.49 K/mm3 (0.9-3.2); Lymphocytes Percent Auto 6.3 % (18.3-44.2); Mean Corpuscular HGB Conc 34.5 g/dl (32-36); Mean Corpuscular Hemoglobin 29.4 pg (26-34); Mean Platelet Volume 10.1 fl (7.4-10.4); Monocytes Absolute Auto 1.5 K/mm3 (0.1-0.6); Monocytes Percent Auto 6.2 % (2.6-8.5); Neutrophils Absolute Auto 20.1 K/mm3 (1.3-6.7); Neutrophils Percent Auto 85.2 % (45.5-73.1); Platelet Count Result 598 k/mm3 (150-375); Red Blood Count 3.61 M/mm3 (4.6-6.20); Red Cell Distribution Width 14.5 % (11.5-14.5); White Blood Count 23.6 K/mm3 (4.5-10.0)
[2021-12-14 05:17] LABS: Albumin Level 2.6 g/dL (3.5-5.1); Anion Gap 2 mmol/L (8-16); Blood Urea Nitrogen 19 mg/dL (9-20); Carbon Dioxide 29 mmol/L (22-30); Chloride 96 mmol/L (98-107); Estimated CRCL calculation 42 ml/min; Estimated Glomerular Filt Rate 46; Glucose 56 mg/dL (65-110); Phosphorus 4.1 mg/dL (2.5-4.5); Potassium 3.7 mmol/L (3.4-5.0); Sodium 127 mmol/L (137-145)
[2021-12-14] MEDS: DEXTROSE 50% 25 GM/50 ML SYRINGE IV PUSH (05:20)
[2021-12-14 06:00] LABS: Alkaline Phosphatase 88 U/L (38-126); Aspartate Amino Transferase 68 U/L (17-59); Bilirubin,Total 0.4 mg/dL (0.2-1.3); Magnesium 1.9 mg/dL (1.6-2.3)
[2021-12-14 06:27] LABS: Glucose Point of Care 132 mg/dl (65-105)
[2021-12-14 07:20] LABS: Glucose Point of Care 103 mg/dl (65-105)
--- NOTE | 2021-12-14 08:34 | PM.IMPN ---
Progress Note: A&P Assessment and Plan (1) Acute respiratory failure: Code(s): J96.00 - Acute respiratory failure, unspecified whether with hypoxia or hypercapnia Status: Acute Assessment and Plan: On admission, acute respiratory failure related to pneumonia. Legionella Ag negative, pneumococcal Ag positive. Blood cultures negative. Coccidiomycosis titers negative. Antifungal treatment stopped and abx adjusted to Rocephin monotherapy.WBC dropped to 16K. Sputum result returned on 12/12/2021 growing Staph aureus so vancomycin started. Sensitivity shows MRSA. WBC increased today to 23.6K. Chest x-ray was worsening with increasing infiltrates and moderate right effusion. Respiratory status is worsening. lasix IV once given which he toerlated well with good response so this was scheduled. Continue IV Lasix as renal function and blood pressure tolerate. Now having low grade fevers and higher WBC despite adding vancomycin. CXR however appears improved probably related to improved pulmonary edema. Unable to do thoracentsis. Will change Rocephin to Primaxin. Repeat cultures (2) Pneumonia: Code(s): J18.9 - Pneumonia, unspecified organism Status: Acute Assessment and Plan: As above. Vancomycin added 12/12/21. Change Rocephin to Primaxin today. (3) Acute coronary syndrome: Code(s): I24.9 - Acute ischemic heart disease, unspecified Status: Acute Assessment and Plan: Acute coronary syndrome with EKG showing ST-elevation in V2 and V3 with no reciprocal changes and Trop to 16 -> 6 consistent with STEMI. Cardiology consulted and appreciate their input. Echo showing EF 20-25% with Grade II diastolic dysfunction. No further chest pain. Heparin gtt was stopped.Currently on ASA, Plavix, Coreg and statin. NTG available prn. Ischemia evaluation when able. Will discuss with Cardiology if okay to stop Plavix for 5 days. If so, will stop tomorrow with plans for thoracentesis on Sunday. (4) Acute hyponatremia: Code(s): E87.1 - Hypo-osmolality and hyponatremia Status: Acute Assessment and Plan: Possibly related to fluid overload and poor renal perfusion from the EF 20%. Shalom <5. Na 127 today but did drop to 119 yesterday acutely. Appreciate Nephrology consultation. 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 Overall, Na better with Lasix - maybe due to 'unloading' of the heart. Follow on Lasix. 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 Patient with known insulin-dependent diabetes. Admitted and found to have DKA treated with DKA protocol. Continue AccuCheks covering with sliding scale. Hypoglycemia protocol available as needed. life educator and value analysis coordinator were consulted. Currently on Lantus. Glucose 54 this morning requiring treatment. Patietn NPO so will hold lantus (6) Acute renal failure superimposed on stage 3 chronic kidney disease: Code(s): N17.9 - Acute kidney failure, unspecified; N18.30 - Chronic kidney disease, stage 3 unspecified Status: Acute Assessment and Plan: Baseline Cr 1.3-1.6. Cr 2.7 on admission. Suspect related to infection, ATN, DKA and dehydration. Renal US normal. Cr remaining stable with diuretics. (7) LV dysfunction: Code(s): I51.9 - Heart disease, unspecified Status: Acute Assessment and Plan: Echo showing EF 20-25% with Grade II diastolic dysfunction. Consider stress response or ischemic etiology resulting in the LV dysfunction. Medical management. As above. Add CRISELDA/ARB or Entresto when able. (8) PVD (peripheral vascular disease): Code(s): I73.9 - Peripheral vascular disease, unspecified Status: Acute Assessment and Plan: Stable, follow-up outpatient (9) DVT prophylaxis
[2021-12-14] MEDS: CLOPIDOGREL BISULFATE 75 MG TABLET PO (10:01)
[2021-12-14] MEDS: carvediloL 3.125 MG TABLET PO ×2 (10:02→20:34)
[2021-12-14] MEDS: ASPIRIN 81 MG ENTERIC TABLET PO (10:02)
[2021-12-14] MEDS: SODIUM CHLORIDE 500 MG TABLET PO ×2 (10:02→17:23)
[2021-12-14] MEDS: guaiFENesin 12 HR 600 MG TABCR PO ×2 (10:02→20:34)
[2021-12-14] MEDS: ENOXAPARIN 40 MG/0.4 ML SYRINGE SUB-Q (10:02)
[2021-12-14] MEDS: PANTOPRAZOLE SODIUM IV 40 MG VIAL IV PUSH (10:02)
[2021-12-14] MEDS: FUROSEMIDE INJ 40 MG/4 ML VIAL IV PUSH ×2 (10:02→17:24)
[2021-12-14] MEDS: LOVASTATIN 20 MG TABLET 40 MG PO (10:02)
--- NOTE | 2021-12-14 10:19 | PM.PNCARD ---
Progress Note: A&P Additional Plan 76-year-old man with Very complex medical situation including: Admission to the hospital with sepsis appears to have multi lobar pneumonia as well as a significant right pleural effusion. I suppose this might indicate evidence of an empyema. Tapping this has been appropriately recommended but will apparently require discontinuance of clopidogrel for 5 days. Patient also was found to be in his state of diabetic ketoacidosis and acute renal failure on presentation. He has a history of coronary artery disease with previous CABG and unfortunately has also been found on this admission to have a severe ischemic cardiomyopathy with very low ejection fraction. High troponin level on admission suggests that he may have had a recent infarction although he has not had any significant chest pain event. As I mentioned in my previous note he is not a candidate for angiography at this time. If things do improve enough he may be a candidate for angiographic assessment at a larger facility with advanced hemodynamics support as interventional revascularization in this setting would clearly be of high risk. The patient had his CABG done at [facility] and chose not to follow with any dock pumper following that. The patient and his indicate following discharge from [place] they may wish to reconnect with the cardiology department at [facility] since that is where his previous care was delivered or may choose to continue to follow with our practice. That is not a decision they have to make at this time. For now we will continue aspirin and low-dose Carvedilol. I have discontinued his clopidogrel in anticipation of thoracentesis. Law Germain MD [facility] Subjective Date/time seen: date of service:12/14/21 10:19 Interval history: FU CAD, recent [place], cardiomyopathy with EF 25-30%. Troponin 16 on admission for sepsis, pneumonia, DKA and ALESSANDRA. Remote CABG. CABG report 2005: CABG x5, Dr. Gabriel. 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 He presents to the hospital feeling unwell for several days in the state of diabetic ketoacidosis and acute renal failure. He is not having any obvious chest pain event but his ECG appears to show that an anterior wall infarction has occurred his troponin levels are consistent with this and he is obviously critically ill in this setting. He should be placed on aspirin and clopidogrel as well as he I believe he is already anticoagulated with heparin. Patient is modestly hypotensive and so beta-blockers and ARB are not being administered at this time. We will recommend aggressive supportive care at this time but he is not a reasonable candidate for angiographic evaluation at this time. The patient's ketoacidosis and acute renal failure preclude that at this time. He is not having an acute anterior wall infarction this infarction I believe is already occurred while he was visiting in [place]. Echocardiogram will be done to look at his left ventricular systolic function at this time. Depending on his clinical course particularly depending on his renal function we will determine if an invasive or noninvasive strategy would be appropriate to evaluate him after this event. It also should be considered that angiography in this gentleman would be a higher risk endeavor that may not be prudent at this hospital. Date of Service 12/06/2021: Patient's main complaints are cough and fatigue, no chest pain. Blood sugars improving. Transitioning to long acting insulin; speech eval. Renal func
[2021-12-14 10:24] LABS: Appearance Urine Slightly Cloudy (Clear); Bilirubin Urine Negative (Negative); Color Urine Yellow (Yellow); Glucose Urine UA Negative (Negative); Ketones Urine Trace mg/dL (Negative); Leukocyte Esterase Ur Negative LEU/UL (Negative); Nitrate Urine Negative (Negative); Protein Urine 2+ mg/dL (Negative); Specific Grav Ur >= 1.030 (1.001-1.035); Urobilinogen Urine 0.2 mg/dL (<2.0); pH Urine 5.5 (5.0-9.0)
[2021-12-14 10:27] LABS: Add Urine Microscopic? YES; Blood Urine Trace-Intact (Negative)
[2021-12-14 10:43] LABS: Bacteria Urine Trace /hpf; Mucus Urine Few /lpf; Squamous Epithelial Cell Urine Rare /hpf (Few); WBC Urine 31-50 /hpf
--- NOTE | 2021-12-14 10:52 | PM.PNNEP ---
Progress Note: A&P Additional Plan 1. Chris has chronic kidney disease. His creatinine generally runs around 1.7. Ultrasound is normal. Echo shows EF of only 20-25%. Urine sodium is less than 5. Urine protein to creatinine ratio is 290. Urinalysis shows some protein. Complements okay. Remainder of serology is pending. Immunofixation pending Most likely this is due to hypertension, diabetes, pre renal azotemia due to cardiomyopathy, and vascular disease. current creatinine is 1.5. the patient had urinary urge to retention yesterday. Urine output was very low until the catheter was placed. Since then he has had lots of urine output. 2. The patient has hypertension. His blood pressure is under good control. 3. The patient has hyponatremia. He has had an occasional low sodium going back a few years. This may be related to his cardiomyopathy and hydrochlorothiazide. Pneumonia is the most likely cause. He has got a poorly functioning left ventricle which could lead to chronic pre renal azotemia and this could contribute to poor water handling. He does have renal insufficiency of course but at this level he should not have a problem with water handling. TSH and cortisol are okay.. No history of cancer. DREDGE LEVER OPERATOR issues are in the differential as well. Patient refused CT brain. He does not have any symptoms of DREDGE LEVER OPERATOR issues. 5/2 Na 126 5/3 Na 127 then 119 then 123. starkey placed and better 5/4 Na 127 now on fluid restriction, lasix and salt tabs. check a sodium at 4pm 4. Has cardiomyopathy. Cardiac services on the case 5. The patient has mild anemia. This is most likely due to chronic disease. Kidney disease could be playing a role. His Hemoglobin is not low enough to start Epogen. 6. he has pneumonia. He is getting antibiotics for this. Symptoms are much better. Subjective Date/time seen: 12/14/21 10:52 Interval history: Chris is or short of breath. He became more short of breath yesterday afternoon and moved to the ICU and is on a BiPAP. He feels better with the BiPAP. He stopped making urine yesterday. I had asked them to put a Starkey catheter in but he refused early on but then yesterday evening he agreed and so has a catheter now and is making urine. Exam Narrative: WDWN in NAD skin no rash or subcu nodules head ncat lungs decreased breath sounds at the bases, cor reg no rub or gallop abd BS+ nontender and soft ext 1+ edema And no cyanosis. Objective Data Vital Signs Vital Signs: Vital Signs - 24 hr 12/13/21 11:55 12/13/21 12:04 12/13/21 12:33 Temperature 37.0 C Pulse Rate 83 78 Respiratory Rate 26 H 18 Blood Pressure 121/55 L Pulse Oximetry 93 92 92 12/13/21 13:55 12/13/21 13:56 12/13/21 14:00 Temperature Pulse Rate 77 77 76 Respiratory Rate 27 H 27 H Blood Pressure Pulse Oximetry 92 12/13/21 14:04 12/13/21 15:39 12/13/21 16:00 Temperature 36.7 C Pulse Rate 74 79 73 Respiratory Rate 27 H 19 Blood Pressure 120/57 L Pulse Oximetry 95 12/13/21 16:50 12/13/21 18:00 12/13/21 19:56 Temperature Pulse Rate 73 72 73 Respiratory Rate 26 H 25 H Blood Pressure Pulse Oximetry 94 12/13/21 19:58 12/13/21 19:59 12/13/21 20:00 Temperature 37.9 C H Pulse Rate 73 73 Respiratory Rate 25 H 23 H Blood Pressure 121/71 Pulse Oximetry 96 96 96 12/13/21 20:06 12/13/21 20:51 12/13/21 22:00 Temperature Pulse Rate 71 73 70 Respiratory Rate 23 H Blood Pressure Pulse Oximetry 12/13/21 23:20 12/14/21 00:00 12/14/21 02:30 Temperature 37.9 C H Pulse Rate 736 H 69 73 Respiratory Rate 24 H 18 26 H Blood Pressure 117/57 L Pulse Oximetry 98 94 93 12/14/21 02:35 12/14/21 02:46 12/14/21 04:00 Temperature 37.7 C H Pulse Rate 74 73 73 Respiratory Rate 26 H 26 H 18 Blood Pressure 124/58 L Pulse Oximetry 90 12/14/21 05:19 12/14/21 06:00 12/14/21 08:00 Temperature 37.4 C Puls
--- NOTE | 2021-12-14 11:12 | PCNFU ---
Nutrition Follow-Up Complete: Inadequate Oral Intake as related to Pneumonia as evidenced by poor po intake reported. goal: Adequate Intake of at least 75% of meals/supplements Patient is progressing towards goal. We will continue current goal. Pt current nutrition is DBCC with FR 1000 ml Last recorded weight is 96.1 kg, up from 83 kg on admit-patient is also on Lasix. Bowel Motility:+ BM reported 5/2 Labs Reviewed:Glu 56, Cr 1..5,GFR 46, Na 127, Alb 2.6,Hct 30.7,Hgb 10.6 Meds Noted:Diflucan, Plavix, Heparin, Lasix, Lovenox,Mucinex, Lantus,Lovastatin,Atrovent, Protonix. 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 Additional Notes: Patient transferred back to ICU yesterday. Continuous bipap all night, currently on high flow nasal canula. Oral Intake: 75-100% of most meals. Diet supplements continue of Glucerna shakes BID providing an additional 220 kcals and 10 gms protein. Agree with diet orders. Monitoring: RD will monitor every 5 days.
[2021-12-14 11:56] LABS: Glucose Point of Care 131 mg/dl (65-105)
--- NOTE | 2021-12-14 11:56 | PCOTNOTE ---
Attempted OT re-assess, per RN hold for today and attempt tomorrow. Will follow.
--- NOTE | 2021-12-14 12:50 | PCPTNOTE ---
Attempted PT re-assess, per RN hold for today and attempt tomorrow. Will follow.
[2021-12-14] MEDS: ACETAMINOPHEN 325 MG TABLET 650 MG PO ×2 (14:06→20:33)
[2021-12-14 16:05] LABS: Glucose Point of Care 250 mg/dl (65-105)
[2021-12-14] MEDS: INSULIN ASPART (*BKC) 100 UNITS/ML SUB-Q (17:22)
[2021-12-14 20:43] LABS: Glucose Point of Care 279 mg/dl (65-105)
[2021-12-15] VITALS (32 sets, daily range): BP systolic 117–127; BP diastolic 54–59; PULSE 65–84; RESP 18–28; TEMP 37.2–38.4; O2SAT 93–100
[2021-12-15] MEDS: LEVALBUTEROL NEB 1.25 MG/3 ML 0.63 MG INHALATION ×4 (01:57→19:47)
[2021-12-15] MEDS: IPRATROPIUM BR 0.02% INH SOLN 0.5 MG/2.5 ML VIAL INHALATION ×4 (01:57→19:47)
[2021-12-15 05:06] LABS: Basophils Absolute Auto 0.1 K/mm3 (0.0-0.1); Basophils Percent Auto 0.4 % (0.2-1.2); Eosinophils Absolute Auto 0.1 K/mm3 (0-0.3); Eosinophils Percent Auto 0.3 % (0-4.4); Hematocrit 29.2 % (42.0-52.0); Hemoglobin 9.7 g/dL (14.0-18.0); Immature Granulocyte Percent A 0.9 % (0-0.5); Lymphocytes Percent Auto 5.3 % (18.3-44.2); Mean Corpuscular HGB Conc 33.2 g/dl (32-36); Mean Corpuscular Hemoglobin 28.9 pg (26-34); Mean Corpuscular Volume 86.9 fl (80-100); Mean Platelet Volume 10.1 fl (7.4-10.4); Monocytes Absolute Auto 1.5 K/mm3 (0.1-0.6); Monocytes Percent Auto 6.6 % (2.6-8.5); Neutrophils Absolute Auto 19.5 K/mm3 (1.3-6.7); Neutrophils Percent Auto 86.5 % (45.5-73.1); Platelet Count Result 549 k/mm3 (150-375); Red Blood Count 3.36 M/mm3 (4.6-6.20); Red Cell Distribution Width 14.6 % (11.5-14.5); White Blood Count 22.5 K/mm3 (4.5-10.0)
[2021-12-15 05:22] LABS: Alanine Aminotransferase 44 U/L (4-50); Albumin Level 2.5 g/dL (3.5-5.1); Alkaline Phosphatase 102 U/L (38-126); Anion Gap 6 mmol/L (8-16); Aspartate Amino Transferase 92 U/L (17-59); Bilirubin,Total 0.6 mg/dL (0.2-1.3); Blood Urea Nitrogen 21 mg/dL (9-20); Calcium 6.8 mg/dL (8.4-10.2); Carbon Dioxide 24 mmol/L (22-30); Chloride 96 mmol/L (98-107); Estimated CRCL calculation 45 ml/min; Estimated Glomerular Filt Rate 49; Glucose 287 mg/dL (65-110); Magnesium 1.9 mg/dL (1.6-2.3); Phosphorus 3.8 mg/dL (2.5-4.5); Potassium 4.2 mmol/L (3.4-5.0); Sodium 126 mmol/L (137-145)
[2021-12-15 05:38] LABS: Hypochromasia 1+ (NORMAL); Platelet Estimate Adequate (Adequate)
[2021-12-15 05:39] LABS: Anisocytosis 1+ (NORMAL)
[2021-12-15 07:57] LABS: Glucose Point of Care 258 mg/dl (65-105)
--- NOTE | 2021-12-15 08:52 | PM.IMPN ---
Progress Note: A&P Assessment and Plan (1) Acute respiratory failure: Code(s): J96.00 - Acute respiratory failure, unspecified whether with hypoxia or hypercapnia Status: Acute Assessment and Plan: On admission, acute respiratory failure related to pneumonia. Patient was started on broad-spectrum IV antibiotics with antifungal feet as well. Legionella Ag negative, pneumococcal Ag positive. Blood cultures negative. Coccidiomycosis titers negative. Antifungal treatment stopped and abx adjusted to Rocephin monotherapy. WBC dropped to 16K. Sputum result returned on 12/12/21 growing Staph aureus so vancomycin started. Sensitivity shows MRSA. WBC increased to 23.6K and having fevers. Chest x-ray was worsening with increasing infiltrates and moderate right effusion. Primaxin added 12/14/21. Started on Lasix IV as well. Having good UOP (2.5L yesterday). Continue IV Lasix as renal function and blood pressure tolerate. He was re-cultred on 12/14/21. Continue Primaxin and vancomycin. Repeat CXR. Wean O2 as toerlated. (2) Pneumonia: Code(s): J18.9 - Pneumonia, unspecified organism Status: Acute Assessment and Plan: Was on broad-spectrum antibiotics but changed to Rocephin monotherapy when pneumococcal antigen returned positive. Vancomycin added 12/12/21 due to staph in sputum culture. Changed Rocephin to Primaxin on 12/14/21 for climbing white count and fever. As above (3) Acute coronary syndrome: Code(s): I24.9 - Acute ischemic heart disease, unspecified Status: Acute Assessment and Plan: Acute coronary syndrome with EKG showing ST-elevation in V2 and V3 with no reciprocal changes and Trop to 16 -> 6 consistent with STEMI. Cardiology consulted and appreciate their input. Echo showing EF 20-25% with Grade II diastolic dysfunction. No further chest pain. Heparin gtt was stopped. Currently on ASA, Coreg and statin. NTG available prn. Ischemia evaluation when able. Cardiology okay to stop Plavix for 5 days for thoracentesis on Sunday. (4) Acute hyponatremia: Code(s): E87.1 - Hypo-osmolality and hyponatremia Status: Acute Assessment and Plan: Possibly related to fluid overload and poor renal perfusion from the EF 20%. Shalom <5. Na 126 today. Appreciate Nephrology consultation. 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 Overall, Na better with Lasix - maybe due to 'unloading' of the heart. Follow on Lasix. Continue NaCl tabs (5) Type 2 diabetes mellitus with hyperglycemia, with long-term current use of insulin: Code(s): E11.65 - Type 2 diabetes mellitus with hyperglycemia; Z79.4 - medical terminologist (current) use of insulin Status: Acute Assessment and Plan: A1c 11.4. Patient with known insulin-dependent diabetes. Admitted and found to have DKA treated with DKA protocol. DKA has resolved. Continue AccuCheks covering with sliding scale. Hypoglycemia protocol available as needed. column precaster and senior computer specialist were consulted. Currently on Lantus. Continue Lantus and adjust insulin accordingly. (6) Acute renal failure superimposed on stage 3 chronic kidney disease: Code(s): N17.9 - Acute kidney failure, unspecified; N18.30 - Chronic kidney disease, stage 3 unspecified Status: Acute Assessment and Plan: Baseline Cr 1.3-1.6. Cr 2.7 on admission. Suspect related to infection, ATN, DKA and dehydration. Renal US normal. Cr remaining stable with diuretics. (7) LV dysfunction: Code(s): I51.9 - Heart disease, unspecified Status: Acute Assessment and Plan: Echo showing EF 20-25% with Grade II diastolic dysfunction. Consider stress response or ischemic etiology resulting in the LV dysfunction. Medical management. As above. Add CRISELDA/ARB or Entresto when able. (8) PVD (peripheral vascular disease): Code(s): I73.9 - Peripheral vascular disease, unspecified Status: Acute Assessment and Plan: Stable, follow-up outpatient (9) DVT
[2021-12-15] MEDS: carvediloL 3.125 MG TABLET PO ×2 (09:19→20:31)
[2021-12-15] MEDS: ASPIRIN 81 MG ENTERIC TABLET PO (09:19)
[2021-12-15] MEDS: CALCIUM CARBONATE (OSCAL) 500 MG TABLET PO (09:19)
[2021-12-15] MEDS: SODIUM CHLORIDE 500 MG TABLET PO (09:20)
[2021-12-15] MEDS: ENOXAPARIN 40 MG/0.4 ML SYRINGE SUB-Q (09:20)
[2021-12-15] MEDS: FUROSEMIDE INJ 100 MG/10 ML VIAL 80 MG IV PUSH ×2 (09:20→17:39)
[2021-12-15] MEDS: PANTOPRAZOLE SODIUM IV 40 MG VIAL IV PUSH (09:20)
[2021-12-15] MEDS: LOVASTATIN 20 MG TABLET 40 MG PO (09:20)
[2021-12-15] MEDS: guaiFENesin 12 HR 600 MG TABCR PO ×2 (09:20→20:31)
[2021-12-15] MEDS: INSULIN GLARGINE (*BKC) 100 UNITS/ML 30 UNITS SUB-Q (09:26)
[2021-12-15] MEDS: INSULIN ASPART (*BKC) 100 UNITS/ML SUB-Q ×3 (09:26→17:40)
--- NOTE | 2021-12-15 11:58 | PM.PNNEP ---
Progress Note: A&P Additional Plan 1. Chris has chronic kidney disease. His creatinine generally runs around 1.7. Ultrasound is normal. Echo shows EF of only 20-25%. Urine sodium is less than 5. Urine protein to creatinine ratio is 290. Urinalysis shows some protein. Complements okay. SACHA negative. Serum immuno fix negative. Urine immuno fix pending. Most likely this is due to hypertension, diabetes, pre renal azotemia due to cardiomyopathy, and vascular disease. current creatinine is 1.5. Urine output is over 2L. He has a catheter in. Will increase diuretics. 2. The patient has hypertension. His blood pressure is under good control. 3. The patient has hyponatremia. He has had an occasional low sodium going back a few years. This may be related to his cardiomyopathy and hydrochlorothiazide. Pneumonia is the most likely cause. He has got a poorly functioning left ventricle which could lead to chronic pre renal azotemia and this could contribute to poor water handling. He does have renal insufficiency of course but at this level he should not have a problem with water handling. TSH and cortisol are okay.. No history of cancer. SPORTS PHYSIOTHERAPIST issues are in the differential as well. Patient refused CT brain. He does not have any symptoms of SPORTS PHYSIOTHERAPIST issues. 5/2 Na 126 5/3 Na 127 then 119 then 123. starkey placed and better 5/4 Na 127 5/5 Na 126 now on fluid restriction, lasix and salt tabs. increase the latter. 4. Has cardiomyopathy. Cardiac services on the case 5. The patient has mild anemia. This is most likely due to chronic disease. Kidney disease could be playing a role. His Hemoglobin is not low enough to start Epogen. 6. he has pneumonia. He is getting antibiotics for this. Subjective Date/time seen: 12/15/21 11:58 Interval history: Chris is feeling better today. Still on a BiPAP machine. Urine outputs doing better. Exam Narrative: WDWN in NAD skin no rash head ncat lungs decreased breath sounds at the bases, cor reg no rub abd BS+ nontender and soft ext 1+ edema And no cyanosis. Objective Data Vital Signs Vital Signs: Vital Signs - 24 hr 12/14/21 12:00 12/14/21 14:00 12/14/21 14:06 Temperature 37.7 C H 38.1 C H Pulse Rate 81 84 Respiratory Rate 18 Blood Pressure 120/59 L Pulse Oximetry 89 L 12/14/21 14:25 12/14/21 14:33 12/14/21 15:06 Temperature 38.2 C H Pulse Rate 84 83 Respiratory Rate 16 23 H Blood Pressure Pulse Oximetry 92 12/14/21 16:00 12/14/21 18:00 12/14/21 20:00 Temperature 38.2 C H 38.4 C H Pulse Rate 86 88 85 Respiratory Rate 20 26 H Blood Pressure 122/60 125/61 Pulse Oximetry 89 L 91 12/14/21 20:06 12/14/21 20:07 12/14/21 20:19 Temperature Pulse Rate 86 86 84 Respiratory Rate 20 20 20 Blood Pressure Pulse Oximetry 91 12/14/21 20:33 12/14/21 20:34 12/14/21 22:00 Temperature 38.3 C H Pulse Rate 94 84 Respiratory Rate Blood Pressure Pulse Oximetry 12/14/21 22:01 12/14/21 23:00 12/15/21 00:00 Temperature 38.3 C H 38.1 C H Pulse Rate 84 76 Respiratory Rate 23 H 20 Blood Pressure 117/58 L Pulse Oximetry 94 97 12/15/21 01:59 12/15/21 02:00 12/15/21 04:00 Temperature 37.2 C Pulse Rate 67 68 68 Respiratory Rate 20 19 Blood Pressure 117/58 L Pulse Oximetry 97 99 12/15/21 05:11 12/15/21 05:12 12/15/21 06:00 Temperature Pulse Rate 66 65 71 Respiratory Rate 20 23 H Blood Pressure Pulse Oximetry 99 12/15/21 08:00 12/15/21 08:22 12/15/21 08:23 Temperature 37.2 C Pulse Rate 75 77 77 Respiratory Rate 20 28 H 28 H Blood Pressure 127/56 L Pulse Oximetry 98 98 12/15/21 08:37 12/15/21 09:00 12/15/21 09:19 Temperature Pulse Rate 74 80 Respiratory Rate 26 H Blood Pressure Pulse Oximetry 96 12/15/21 10:00 12/15/21 11:29 Temperature Pulse Rate 78 Respiratory Rate Blood Pressure Pulse Oxime
[2021-12-15 12:22] LABS: Glucose Point of Care 278 mg/dl (65-105)
[2021-12-15] MEDS: ACETAMINOPHEN 325 MG TABLET 650 MG PO ×2 (12:48→20:31)
[2021-12-15 13:23] LABS: Vancomycin Trough 10.7 ug/mL (10.0-20.0)
--- NOTE | 2021-12-15 14:30 | PM.PNCARD ---
Progress Note: A&P Assessment and Plan (1) Non-ST elevation [place] (NSTEMI): Code(s): I21.4 - Non-ST elevation (NSTEMI) myocardial infarction Status: Acute Assessment and Plan: CAD, CABG in 2004, admitted with a non-STEMI. H/O remote CABG. Patient appears hemodynamically stable and has had no chest pain or angina. Severe LV dysfunction; probably all new. Do not know if there is any component Tako-Tsubo cardiomyopathy or just severe multivessel CAD causing severe left ventricular dysfunction. No evidence of heart failure at this time. Initially heparinized. Continue medical therapy. Clopidogrel on hold Eventual ischemia evaluation once other medical issues have resolved/stabilized. This would be a high risk procedure and will probably not be carried out at this hospital. Echo 12/06/2021: Mild left ventricular enlargement with moderate LVH. Mild to moderate hypokinesis of the base of the heart with severe hypokinesis the been distal segments, suggestive of Takotsubo cardiomyopathy. In addition is a focal area mid/distal anterolateral akinesis. EF measured 25%, visual EF 25-30%. Grade diastolic dysfunction. No significant valvular abnormalities. Recommended cardiology follow up at [facility] as outpatient, he has had prior CABG and left heart cath performed there. (2) Severe sepsis: Code(s): A41.9 - Sepsis, unspecified organism; R65.20 - Severe sepsis without septic shock Status: Acute Assessment and Plan: improving, lactic acidosis resolved (3) Pneumonia: Code(s): J18.9 - Pneumonia, unspecified organism Status: Acute Assessment and Plan: on oxygen and antibiotics (4) Acute renal failure superimposed on stage 3 chronic kidney disease: Code(s): N17.9 - Acute kidney failure, unspecified; N18.30 - Chronic kidney disease, stage 3 unspecified Status: Acute Assessment and Plan: improving (5) DKA, type 2: Code(s): E11.10 - Type 2 diabetes mellitus with ketoacidosis without coma Status: Acute Assessment and Plan: resolved (6) PVD (peripheral vascular disease): Code(s): I73.9 - Peripheral vascular disease, unspecified Status: Acute Assessment and Plan: stable (7) Abdominal pain: Code(s): R10.9 - Unspecified abdominal pain Status: Acute Assessment and Plan: Resolved Subjective Date/time seen: 12/15/21 14:30 Interval history: FU CAD, recent [place], cardiomyopathy with EF 25-30%. Troponin 16 on admission for sepsis, pneumonia, DKA and ALESSANDRA. Remote CABG. CABG report 2005: CABG x5, Dr. Gabriel. 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 He presents to the hospital feeling unwell for several days in the state of diabetic ketoacidosis and acute renal failure. He is not having any obvious chest pain event but his ECG appears to show that an anterior wall infarction has occurred his troponin levels are consistent with this and he is obviously critically ill in this setting. He should be placed on aspirin and clopidogrel as well as he I believe he is already anticoagulated with heparin. Patient is modestly hypotensive and so beta-blockers and ARB are not being administered at this time. We will recommend aggressive supportive care at this time but he is not a reasonable candidate for angiographic evaluation at this time. The patient's ketoacidosis and acute renal failure preclude that at this time. He is not having an acute anterior wall infarction this infarction I believe is already occ
--- NOTE | 2021-12-15 14:41 | PCPTNOTE ---
Attempted PT re-evaluation, RN gave approval to attempt, but patient refused stating I Can't. Will Follow.
[2021-12-15 16:03] LABS: Influenza A QL RT-PCR Negative (Negative); Influenza B QL RT-PCR Negative (Negative); SARS-CoV-2 RNA PCR Negative
[2021-12-15 16:09] LABS: Glucose Point of Care 215 mg/dl (65-105)
--- NOTE | 2021-12-15 17:18 | PCOTNOTE ---
Attempted to see pt. for OT/PT re-eval. Pt. declined to participate today.
[2021-12-15] MEDS: SODIUM CHLORIDE 500 MG TABLET 1500 MG PO (17:39)
[2021-12-15 21:08] LABS: Glucose Point of Care 168 mg/dl (65-105)
[2021-12-16] VITALS (33 sets, daily range): BP systolic 99–145; BP diastolic 52–73; PULSE 69–96; RESP 17–29; TEMP 37.4–39; O2SAT 90–97
[2021-12-16] MEDS: ACETAMINOPHEN 325 MG TABLET 650 MG PO ×3 (00:41→20:00)
[2021-12-16] MEDS: LEVALBUTEROL NEB 1.25 MG/3 ML 0.63 MG INHALATION ×4 (01:06→19:22)
[2021-12-16] MEDS: IPRATROPIUM BR 0.02% INH SOLN 0.5 MG/2.5 ML VIAL INHALATION ×4 (01:06→19:22)
[2021-12-16 05:03] LABS: Basophils Absolute Auto 0.1 K/mm3 (0.0-0.1); Basophils Percent Auto 0.4 % (0.2-1.2); Eosinophils Percent Auto 0.2 % (0-4.4); Hematocrit 30.8 % (42.0-52.0); Hemoglobin 10.4 g/dL (14.0-18.0); Immature Granulocyte Absolute 0.12 K/mm3 (0.00-0.031); Immature Granulocyte Percent A 0.6 % (0-0.5); Lymphocytes Absolute Auto 1.39 K/mm3 (0.9-3.2); Mean Corpuscular HGB Conc 33.8 g/dl (32-36); Mean Corpuscular Hemoglobin 29.6 pg (26-34); Mean Corpuscular Volume 87.7 fl (80-100); Mean Platelet Volume 9.9 fl (7.4-10.4); Monocytes Absolute Auto 1.4 K/mm3 (0.1-0.6); Monocytes Percent Auto 7.2 % (2.6-8.5); Neutrophils Absolute Auto 16.9 K/mm3 (1.3-6.7); Neutrophils Percent Auto 84.6 % (45.5-73.1); Platelet Count Result 608 k/mm3 (150-375); Red Blood Count 3.51 M/mm3 (4.6-6.20); Red Cell Distribution Width 14.7 % (11.5-14.5)
[2021-12-16 05:17] LABS: Alanine Aminotransferase 47 U/L (4-50); Albumin Level 2.6 g/dL (3.5-5.1); Alkaline Phosphatase 110 U/L (38-126); Anion Gap 4 mmol/L (8-16); Aspartate Amino Transferase 93 U/L (17-59); Bilirubin,Total 0.7 mg/dL (0.2-1.3); Blood Urea Nitrogen 23 mg/dL (9-20); Carbon Dioxide 29 mmol/L (22-30); Chloride 93 mmol/L (98-107); Estimated CRCL calculation 45 ml/min; Estimated Glomerular Filt Rate 49; Glucose 167 mg/dL (65-110); Magnesium 1.9 mg/dL (1.6-2.3); Phosphorus 3.6 mg/dL (2.5-4.5); Potassium 3.7 mmol/L (3.4-5.0); Sodium 126 mmol/L (137-145)
[2021-12-16 08:25] LABS: Glucose Point of Care 170 mg/dl (65-105)
--- NOTE | 2021-12-16 09:21 | PCOTNOTE ---
Attempted OT re-assess, patient declined at this time, will follow.
[2021-12-16] MEDS: SODIUM CHLORIDE 500 MG TABLET 1500 MG PO ×2 (09:39→16:07)
[2021-12-16] MEDS: ENOXAPARIN 40 MG/0.4 ML SYRINGE SUB-Q (09:40)
[2021-12-16] MEDS: PANTOPRAZOLE SODIUM IV 40 MG VIAL IV PUSH (09:40)
[2021-12-16] MEDS: carvediloL 3.125 MG TABLET PO ×2 (09:40→20:01)
[2021-12-16] MEDS: FUROSEMIDE INJ 100 MG/10 ML VIAL 80 MG IV PUSH ×2 (09:40→16:07)
[2021-12-16] MEDS: guaiFENesin 12 HR 600 MG TABCR PO (09:40)
[2021-12-16] MEDS: LOVASTATIN 20 MG TABLET 40 MG PO (09:40)
[2021-12-16] MEDS: ASPIRIN 81 MG ENTERIC TABLET PO (09:41)
[2021-12-16] MEDS: CALCIUM CARBONATE (OSCAL) 500 MG TABLET PO (09:41)
[2021-12-16] MEDS: INSULIN GLARGINE (*BKC) 100 UNITS/ML 30 UNITS SUB-Q (09:42)
--- NOTE | 2021-12-16 10:27 | PM.PNNEP ---
Progress Note: A&P Additional Plan 1. Chris has chronic kidney disease. His creatinine generally runs around 1.7. Ultrasound is normal. Echo shows EF of only 20-25%. Urine sodium is less than 5. Urine protein to creatinine ratio is 290. Urinalysis shows some protein. Complements okay. SACHA negative. Serum immuno fix negative. Urine immuno fix pending. Most likely this is due to hypertension, diabetes, pre renal azotemia due to cardiomyopathy, and vascular disease. current creatinine is 1.4 Urine output is over 2L. He has a catheter in. I would like to see him make more urine because of his fluid burden. Will add metolazone. 2. The patient has hypertension. His blood pressure is under good control. 3. The patient has hyponatremia. He has had an occasional low sodium going back a few years. This may be related to his cardiomyopathy and hydrochlorothiazide. Pneumonia is the most likely cause. He has got a poorly functioning left ventricle which could lead to chronic pre renal azotemia and this could contribute to poor water handling. He does have renal insufficiency of course but at this level he should not have a problem with water handling. TSH and cortisol are okay.. No history of cancer. WET PAN MIXER issues are in the differential as well. Patient refused CT brain. He does not have any symptoms of WET PAN MIXER issues. 5/2 Na 126 5/3 Na 127 then 119 then 123. starkey placed and better 5/4 Na 127 5/5 Na 126 5/6 Na 126 now on fluid restriction, lasix and salt tabs. 4. Has cardiomyopathy. Cardiac services on the case 5. The patient has mild anemia. This is most likely due to chronic disease. Kidney disease could be playing a role. His Hemoglobin is not low enough to start Epogen. 6. he has pneumonia. He is getting antibiotics for this. Subjective Date/time seen: 12/16/21 10:27 Interval history: Chris is feeling better today. He is on nasal cannula now. He feels better. Urine outputs doing better. Exam Narrative: WDWN in NAD skin no rash or subQ nodules head ncat lungs decreased breath sounds at the bases, cor reg no rub abd BS+ nontender and soft ext 1+ edema And no cyanosis. Objective Data Vital Signs Vital Signs: Vital Signs - 24 hr 12/15/21 11:29 12/15/21 12:00 12/15/21 12:48 Temperature 37.8 C H 37.8 C H Pulse Rate 83 Respiratory Rate 25 H Blood Pressure 127/59 L Pulse Oximetry 96 94 12/15/21 13:48 12/15/21 14:00 12/15/21 14:22 Temperature 38.2 C H Pulse Rate 74 76 Respiratory Rate 20 Blood Pressure Pulse Oximetry 12/15/21 14:30 12/15/21 14:31 12/15/21 15:54 Temperature Pulse Rate 75 74 74 Respiratory Rate 20 18 20 Blood Pressure Pulse Oximetry 94 96 12/15/21 16:00 12/15/21 17:57 12/15/21 18:17 Temperature 38.0 C H Pulse Rate 74 77 Respiratory Rate 22 H Blood Pressure 117/54 L Pulse Oximetry 95 95 12/15/21 19:47 12/15/21 20:00 12/15/21 20:01 Temperature 38.1 C H Pulse Rate 78 76 Respiratory Rate 20 20 Blood Pressure 127/59 L Pulse Oximetry 100 93 12/15/21 20:31 12/15/21 22:00 12/15/21 22:21 Temperature 38.2 C H 38.4 C H Pulse Rate 79 79 Respiratory Rate Blood Pressure Pulse Oximetry 12/16/21 00:00 12/16/21 00:41 12/16/21 01:07 Temperature 38.2 C H 38.0 C H Pulse Rate 73 72 Respiratory Rate 24 H 19 Blood Pressure 109/52 L Pulse Oximetry 96 12/16/21 01:20 12/16/21 01:24 12/16/21 02:00 Temperature Pulse Rate 71 71 74 Respiratory Rate 17 22 H Blood Pressure Pulse Oximetry 96 12/16/21 02:01 12/16/21 04:00 12/16/21 05:42 Temperature 37.7 C H 37.4 C Pulse Rate 69 77 Respiratory Rate 18 20 Blood Pressure 119/61 Pulse Oximetry 96 97 12/16/21 06:00 12/16/21 08:00 12/16/21 08:06 Temperature 37.4 C Pulse Rate 75 79 Respiratory Rate 21 H Blood Pressure 99/73 L Pulse Oximetry 93 94 12/16/21 08:32 12/16/21 0
--- NOTE | 2021-12-16 11:16 | PM.IMPN ---
Progress Note: A&P Assessment and Plan (1) Acute respiratory failure: Code(s): J96.00 - Acute respiratory failure, unspecified whether with hypoxia or hypercapnia Status: Acute Assessment and Plan: On admission, acute respiratory failure related to pneumonia. Patient was started on broad-spectrum IV antibiotics with antifungal feet as well. Legionella Ag negative, pneumococcal Ag positive. Blood cultures negative. Coccidiomycosis titers negative. Antifungal treatment stopped and abx adjusted to Rocephin monotherapy. WBC dropped to 16K. Sputum result returned on 12/12/21 growing Staph aureus so vancomycin started. Sensitivity shows MRSA. WBC increased to 23.6K and having fevers. Chest x-ray was worsening with increasing infiltrates and moderate right effusion. Primaxin added 12/14/21. Started on Lasix IV as well. Having good UOP (2.3L yesterday). Continue IV Lasix as renal function and blood pressure tolerate. He was re-cultured on 12/14/21. UCx negative. BCx NGTD. Still having fevers for unclear reasons. No central line. COVID and Influenza negative. Drug fevers? Check LE dopplers. Continue Primaxin and vancomycin. Wean O2 as tolerated (2) Pneumonia: Code(s): J18.9 - Pneumonia, unspecified organism Status: Acute Assessment and Plan: Was on broad-spectrum antibiotics but changed to Rocephin monotherapy when pneumococcal antigen returned positive. Vancomycin added 12/12/21 due to staph in sputum culture. Changed Rocephin to Primaxin on 12/14/21 for climbing white count and fever. As above (3) Acute coronary syndrome: Code(s): I24.9 - Acute ischemic heart disease, unspecified Status: Acute Assessment and Plan: Acute coronary syndrome with EKG showing ST-elevation in V2 and V3 with no reciprocal changes and Trop to 16 -> 6 consistent with STEMI. Cardiology consulted and appreciate their input. Echo showing EF 20-25% with Grade II diastolic dysfunction. No further chest pain. Heparin gtt was stopped. Currently on ASA, Coreg and statin. NTG available prn. Ischemia evaluation when able. Cardiology was okay to stop Plavix for 5 days for thoracentesis on Sunday. (4) CHF (congestive heart failure): Code(s): I50.9 - Heart failure, unspecified Status: Acute Assessment and Plan: Echo showing EF 20-25% with Grade II diastolic dysfunction. Currently undergoing aggressive diuresis. CXTR improving. Continue Coreg. Add CRISELDA/ARB or Entresto when able. (5) Acute hyponatremia: Code(s): E87.1 - Hypo-osmolality and hyponatremia Status: Acute Assessment and Plan: Possibly related to fluid overload and poor renal perfusion from the EF 20%. Shalom <5. Na 126 today. Appreciate Nephrology consultation. 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 Overall, Na better with Lasix - maybe due to 'unloading' of the heart. Follow on Lasix. Continue NaCl tabs and dose increased (6) Type 2 diabetes mellitus with hyperglycemia, with long-term current use of insulin: Code(s): E11.65 - Type 2 diabetes mellitus with hyperglycemia; Z79.4 - penitentiary (current) use of insulin Status: Acute Assessment and Plan: A1c 11.4. Patient with known insulin-dependent diabetes. Admitted and found to have DKA treated with DKA protocol. DKA has resolved. Continue AccuCheks covering with sliding scale. Hypoglycemia protocol available as needed. furniture mechanic and stockroom helper were consulted. Currently on Lantus. Morning sugar 167 but higher later in the day. He is eating better. Add Novolog at meal times. Continue Lantus and adjust insulin accordingly. (7) Acute renal failure superimposed on stage 3 chronic kidney disease: Code(s): N17.9 - Acute kidney failure, unspecified; N18.30 - Chronic kidney disease, stage 3 unspecified Status: Acute Assessment and Plan: Baseline Cr 1.3-1.6. Cr 2.7 on admission. Suspect related to infection, ATN, DKA and dehydration. Renal US normal. Cr remain
--- NOTE | 2021-12-16 11:28 | PCPTNOTE ---
Patient refused physical therapy re-evaluation this session due to being too tired. Will follow.
[2021-12-16 11:54] LABS: Glucose Point of Care 285 mg/dl (65-105)
[2021-12-16] MEDS: INSULIN ASPART (*BKC) 100 UNITS/ML SUB-Q ×3 (12:04→17:27)
[2021-12-16] MEDS: metOLazone 5 MG TABLET PO (12:04)
[2021-12-16 14:19] LABS: Glucose Point of Care 276 mg/dl (65-105)
[2021-12-16 17:27] LABS: Glucose Point of Care 260 mg/dl (65-105)
[2021-12-16] MEDS: guaiFENesin 12 HR 600 MG TABCR 1200 MG PO (20:01)
[2021-12-16 20:28] LABS: Glucose Point of Care 265 mg/dl (65-105)
[2021-12-17] VITALS (29 sets, daily range): BP systolic 112–132; BP diastolic 44–64; PULSE 70–93; RESP 16–31; TEMP 36.3–37.8; O2SAT 74–100
[2021-12-17] MEDS: LEVALBUTEROL NEB 1.25 MG/3 ML 0.63 MG INHALATION ×4 (01:17→20:42)
[2021-12-17] MEDS: IPRATROPIUM BR 0.02% INH SOLN 0.5 MG/2.5 ML VIAL INHALATION ×4 (01:18→20:42)
[2021-12-17 04:26] LABS: Basophils Absolute Auto 0.1 K/mm3 (0.0-0.1); Basophils Percent Auto 0.4 % (0.2-1.2); Eosinophils Percent Auto 0.1 % (0-4.4); Hematocrit 31.2 % (42.0-52.0); Hemoglobin 10.4 g/dL (14.0-18.0); Immature Granulocyte Absolute 0.15 K/mm3 (0.00-0.031); Immature Granulocyte Percent A 0.7 % (0-0.5); Lymphocytes Absolute Auto 1.41 K/mm3 (0.9-3.2); Mean Corpuscular HGB Conc 33.3 g/dl (32-36); Mean Corpuscular Hemoglobin 29.3 pg (26-34); Mean Corpuscular Volume 87.9 fl (80-100); Mean Platelet Volume 9.8 fl (7.4-10.4); Monocytes Absolute Auto 1.4 K/mm3 (0.1-0.6); Monocytes Percent Auto 6.7 % (2.6-8.5); Neutrophils Absolute Auto 17.2 K/mm3 (1.3-6.7); Neutrophils Percent Auto 85.1 % (45.5-73.1); Platelet Count Result 673 k/mm3 (150-375); Red Blood Count 3.55 M/mm3 (4.6-6.20); Red Cell Distribution Width 14.4 % (11.5-14.5); White Blood Count 20.2 K/mm3 (4.5-10.0)
[2021-12-17 04:37] LABS: Alanine Aminotransferase 48 U/L (4-50); Albumin Level 2.8 g/dL (3.5-5.1); Alkaline Phosphatase 132 U/L (38-126); Anion Gap 5 mmol/L (8-16); Aspartate Amino Transferase 73 U/L (17-59); Bilirubin,Total 0.8 mg/dL (0.2-1.3); Blood Urea Nitrogen 27 mg/dL (9-20); Calcium 7.3 mg/dL (8.4-10.2); Carbon Dioxide 33 mmol/L (22-30); Chloride 88 mmol/L (98-107); Estimated CRCL calculation 40 ml/min; Estimated Glomerular Filt Rate 42; Glucose 262 mg/dL (65-110); Magnesium 1.8 mg/dL (1.6-2.3); Phosphorus 3.6 mg/dL (2.5-4.5); Potassium 3.7 mmol/L (3.4-5.0); Sodium 126 mmol/L (137-145)
[2021-12-17] MEDS: ASPIRIN 81 MG ENTERIC TABLET PO (08:30)
[2021-12-17] MEDS: ENOXAPARIN 40 MG/0.4 ML SYRINGE SUB-Q (08:30)
[2021-12-17] MEDS: FUROSEMIDE INJ 100 MG/10 ML VIAL 80 MG IV PUSH ×2 (08:30→17:32)
[2021-12-17] MEDS: INSULIN GLARGINE (*BKC) 100 UNITS/ML 30 UNITS SUB-Q (08:31)
[2021-12-17] MEDS: CALCIUM CARBONATE (OSCAL) 500 MG TABLET PO (08:31)
[2021-12-17] MEDS: PANTOPRAZOLE SODIUM IV 40 MG VIAL IV PUSH (08:31)
[2021-12-17] MEDS: guaiFENesin 12 HR 600 MG TABCR 1200 MG PO ×2 (08:31→20:19)
[2021-12-17] MEDS: SODIUM CHLORIDE 500 MG TABLET 1500 MG PO ×2 (08:31→17:33)
[2021-12-17] MEDS: metOLazone 5 MG TABLET PO (08:31)
[2021-12-17] MEDS: carvediloL 3.125 MG TABLET PO ×2 (08:32→20:19)
[2021-12-17] MEDS: INSULIN ASPART (*BKC) 100 UNITS/ML SUB-Q ×6 (08:32→17:13)
[2021-12-17 08:35] LABS: Glucose Point of Care 248 mg/dl (65-105)
--- NOTE | 2021-12-17 11:30 | PC.NURSE ---
This patient, Chris Handley, was received from ICU 7 on 12/17/21 at 1110. Patient/family oriented to unit policies and routines
[2021-12-17 11:37] LABS: Glucose Point of Care 294 mg/dl (65-105)
--- NOTE | 2021-12-17 12:04 | P.PNNP_ITS ---
Progress Note: A&P Assessment and Plan (1) Stage 3b chronic kidney disease: Code(s): N18.32 - Chronic kidney disease, stage 3b Status: Chronic Assessment and Plan: * baseline creatinine seems to run ~ 1.4 - 1.7mg/dl * presumably due to hypertension, diabetes, chronic pre-renal azotemia from his cardiomyopathy, and vascular disease * evaluation to date noted: * renal ultrasound is normal * Echo shows EF of only 20-25% * urine sodium is less than 5 * urine protein to creatinine ratio is 290 * urinalysis shows some protein * complements/SACHA/serum immunofixation negative; urine immunofixation pending * creatinine relatively stable in spite of diuresus * follow trend of UOP and repeat labs (2) Hyponatremia: Code(s): E87.1 - Hypo-osmolality and hyponatremia Status: Chronic Assessment and Plan: * has had this issue on/off for that last few years - likely related to his known cardiomyopathy and HCTZ use * however, acutely worse on this hospitalization - probably from pneumonia * evaluation to date: * TSH and cortisol level okay * no history of malignancy * no GRAIN DRIER issues (refused brain CT) * continue current therapy of fluid restriction, lasix, and salt tabs (3) CHF (congestive heart failure): Code(s): I50.9 - Heart failure, unspecified Status: Acute Assessment and Plan: * complicated by chest pain/ACS + underlying cardiomyopathy * Cardiology following * continue aggressive diuresis as tolerated (4) Pneumonia: Code(s): J18.9 - Pneumonia, unspecified organism Status: Acute Assessment and Plan: * as noted by imaging to date * on antibiotics * follow culture data (5) Hypertension: Qualifiers: Hypertension type: essential hypertension Qualified Code(s): I10 - Essential (primary) hypertension Code(s): I10 - Essential (primary) hypertension Status: Chronic Assessment and Plan: * reasonable control at this time * continue to follow trend of hemodynamics (6) Insulin dependent diabetes mellitus: Status: Chronic Assessment and Plan: * follow accuchecks * on Lantus and SSI Will continue to follow. Subjective Date/time seen: 12/17/21 12:04 Chart reviewed - assuming care from Dr. West; transferred out of ICU earlier today; sitting up in chair although having difficulty getting comfortable; overa ll, he seems to be feeling better; kidney function tolerating diuresis at this time; tentatively plan thoracentesis on Sunday; discussed with family at bedside. Exam Narrative: General: elderly male in NAD Heart: normal S1 and S2; no rub Lungs: decreased at bases Abdomen: soft, nontender, nondistended, positive bowel sounds Extremities: no cyanosis or clubbing; 1+ edema Skin: warm and dry Objective Data Vital Signs Vital Signs: Vital Signs Temp Pulse Resp BP Pulse Ox 12/17/21 11:31 92 12/17/21 11:30 36.3 C L 87 24 H 119/57 L 96 12/17/21 10:00 79 12/17/21 08:32 77 12/17/21 08:00 37.6 C H 77 19 132/59 L 94 12/17/21 07:40 73 19 12/17/21 07:24 73 31 H 98 12/17/21 07:23 73 17 12/17/21 06:00 74 12/17/21 04:51 72 28 H 100 12/17/21 04:00 37.4 C 74 19 127/64 74 L 12/17/21 02:54 75 24 H 96 0
--- NOTE | 2021-12-17 12:04 | PM.PNNEP ---
Progress Note: A&P Assessment and Plan (1) Stage 3b chronic kidney disease: Code(s): N18.32 - Chronic kidney disease, stage 3b Status: Chronic Assessment and Plan: baseline creatinine seems to run ~ 1.4 - 1.7mg/dl presumably due to hypertension, diabetes, chronic pre-renal azotemia from his cardiomyopathy, and vascular disease evaluation to date noted: renal ultrasound is normal Echo shows EF of only 20-25% urine sodium is less than 5 urine protein to creatinine ratio is 290 urinalysis shows some protein complements/SACHA/serum immunofixation negative; urine immunofixation pending creatinine relatively stable in spite of diuresus follow trend of UOP and repeat labs (2) Hyponatremia: Code(s): E87.1 - Hypo-osmolality and hyponatremia Status: Chronic Assessment and Plan: has had this issue on/off for that last few years - likely related to his known cardiomyopathy and HCTZ use however, acutely worse on this hospitalization - probably from pneumonia evaluation to date: TSH and cortisol level okay no history of malignancy 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 (refused brain CT) continue current therapy of fluid restriction, lasix, and salt tabs (3) CHF (congestive heart failure): Code(s): I50.9 - Heart failure, unspecified Status: Acute Assessment and Plan: complicated by chest pain/ACS + underlying cardiomyopathy Cardiology following continue aggressive diuresis as tolerated (4) Pneumonia: Code(s): J18.9 - Pneumonia, unspecified organism Status: Acute Assessment and Plan: as noted by imaging to date on antibiotics follow culture data (5) Hypertension: Qualifiers: Hypertension type: essential hypertension Qualified Code(s): I10 - Essential (primary) hypertension Code(s): I10 - Essential (primary) hypertension Status: Chronic Assessment and Plan: reasonable control at this time continue to follow trend of hemodynamics (6) Insulin dependent diabetes mellitus: Status: Chronic Assessment and Plan: follow accuchecks on Lantus and SSI Will continue to follow. Subjective Date/time seen: 12/17/21 12:04 Chart reviewed - assuming care from Dr. West; transferred out of ICU earlier today; sitting up in chair although having difficulty getting comfortable; overall, he seems to be feeling better; kidney function tolerating diuresis at this time; tentatively plan thoracentesis on Sunday; discussed with family at bedside. Exam Narrative: General: elderly male in NAD Heart: normal S1 and S2; no rub Lungs: decreased at bases Abdomen: soft, nontender, nondistended, positive bowel sounds Extremities: no cyanosis or clubbing; 1+ edema Skin: warm and dry Objective Data Vital Signs Vital Signs: Vital Signs Temp Pulse Resp BP Pulse Ox 12/17/21 11:31 92 12/17/21 11:30 36.3 C L 87 24 H 119/57 L 96 12/17/21 10:00 79 12/17/21 08:32 77 12/17/21 08:00 37.6 C H 77 19 132/59 L 94 12/17/21 07:40 73 19 12/17/21 07:24 73 31 H 98 12/17/21 07:23 73 17 12/17/21 06:00 74 12/17/21 04:51 72 28 H 100 12/17/21 04:00 37.4 C 74 19 127/64 74 L 12/17/21 02:54 75 24 H 96 12/17/21 02:00 72 12/17/21 01:30 77 18 12/17/21 01:20 74 25 H 95 12/17/21 01:19 77 18 12/17/21 00:00 37.8 C H 75 24 H 116/55 L 94 12/16/21 22:00 38.2 C H 83 12/16/21 21:00 38.4 C H 12/16/21 20:01 88 12/16/21 20:00 38.7 C H 86 22 H 122/58 L 95 12/16/21 19:50 86 22 H 93 12/16/21 18:00 89 12/16/21 17:06 39.0 C H 12/16/21 16:06 38.9 C H 12/16/21 16:00 38.8 C H 96 27 H 136/56 L 90 12/16/21 14:30 93 12/16/21 14:00 88 12/16/21 13:52 86 23 H 12/16/21 13:45 94 12/16/21 13:43 89 23 H Intake/Output Intake/Output: Intake & Output 12/14
--- NOTE | 2021-12-17 15:15 | PM.IMPN ---
Progress Note: A&P Assessment and Plan (1) Hyponatremia: Code(s): E87.1 - Hypo-osmolality and hyponatremia Status: Acute (2) Stage 3b chronic kidney disease: Code(s): N18.32 - Chronic kidney disease, stage 3b Status: Chronic (3) CHF (congestive heart failure): Code(s): I50.9 - Heart failure, unspecified Status: Acute (4) DVT prophylaxis: Code(s): Z29.9 - Encounter for prophylactic measures, unspecified Status: Acute (5) Abdominal pain: Code(s): R10.9 - Unspecified abdominal pain Status: Acute (6) LV dysfunction: Code(s): I51.9 - Heart disease, unspecified Status: Acute (7) Acute renal failure superimposed on stage 3 chronic kidney disease: Code(s): N17.9 - Acute kidney failure, unspecified; N18.30 - Chronic kidney disease, stage 3 unspecified Status: Acute (8) Severe sepsis: Code(s): A41.9 - Sepsis, unspecified organism; R65.20 - Severe sepsis without septic shock Status: Acute (9) Acute coronary syndrome: Code(s): I24.9 - Acute ischemic heart disease, unspecified Status: Acute (10) ALESSANDRA (acute kidney injury): Code(s): N17.9 - Acute kidney failure, unspecified Status: Acute (11) Pneumonia: Code(s): J18.9 - Pneumonia, unspecified organism Status: Acute (12) Non-ST elevation AR (NSTEMI): Code(s): I21.4 - Non-ST elevation (NSTEMI) myocardial infarction Status: Acute Additional Plan # ischemic cardiomyopathy?, heart failure with reduced ejection fraction # NSTEMI # acute hypoxic respiratory failure - echocardiogram shows EF 20-25% and grade 2 diastolic dysfunction -continue IV diuresis Lasix 80 mg b.i.d., metolazone ( 4 L urine output, goal 3-5 L output daily) - continue Coreg - as kidney function improves will add Entresto, patient will likely need to be on spironolactone -with heart failure adding Jardiance 10 mg daily - continue PT and OT - statin, aspirin, (Plavix held for thoracentesis), Coreg, plan to start Entresto soon - currently on 4 L oxygen by nasal cannula, continue weaning as we diurese # pleural effusion -Likely secondary to heart failure -Plavix has been held for thoracentesis plan on Sunday - incentive spirometer, chest PT # community-acquired pneumonia # severe sepsis secondary pneumonia - sputum cultures growing Staph aureus - antibiotics: Vancomycin 5/2-, Primaxin 5/4- - persistent leukocytosis 20 K - continue DuoNebs, Mucinex # hypervolemic hyponatremia and hypochloremia - sodium 126, unchanged over last couple days, continue diuresis - nephrology consulted -started on salt tabs # ALESSANDRA and CKD stage 3 - renal ultrasound normal, continue diuresis - creatinine baseline 1.3-1.6, currently 1.6 # chronic conditions - type 2 diabetes: Hemoglobin A1c 11.4, continue sliding scale insulin, Accu-Cheks a.c. HS, hypoglycemia protocol, insulin as per 4 units t.i.d. a.c., glargine 30 units daily - GERD: Protonix Diet: Cardiac, fluid restriction 1 L DVT prophylaxis: SCDs, Lovenox will hold tomorrow for thoracentesis on Sunday Code status: Full code Disposition: Continue diuresis in IMU Time Spent With Patient Time with patient: 25 - 35 minutes Subjective Date/time seen: 12/17/21 15:15 Patient seen examined. Patient is newly diagnosed cardiomyopathy EF 20-25% With grade 2 diastolic dysfunction. Will continue diuresing aggressively 80 mg IV Lasix b.i.d.. Fluid output of around 4 L in last 24 hours. starting Jardiance for newly diagnosed cardiomyopathy. Patient will likely benefit from Entresto and spironolactone. Will continue primaxin (12/14-) and vancomycin (5/2-). Sputum culture had grown Staph aureus on 12/12/2021. Continue diuresis. Current plan is thoracentesis on Sunday, Plavix has been held. Patient feels much better, down to 4 L oxygen by nasal cannula. Patient denies fever, chills, nausea, vomiting, diarrhea, chest pain. Rev
[2021-12-17 16:34] LABS: Glucose Point of Care 277 mg/dl (65-105)
[2021-12-17 20:51] LABS: Glucose Point of Care 179 mg/dl (65-105)
[2021-12-18] VITALS (27 sets, daily range): BP systolic 110–138; BP diastolic 53–70; PULSE 68–97; RESP 18–26; TEMP 36–36.9; O2SAT 90–98
[2021-12-18] MEDS: IPRATROPIUM BR 0.02% INH SOLN 0.5 MG/2.5 ML VIAL INHALATION ×4 (02:25→20:04)
[2021-12-18] MEDS: LEVALBUTEROL NEB 1.25 MG/3 ML 0.63 MG INHALATION ×4 (02:25→20:04)
[2021-12-18 06:36] LABS: Hematocrit 29.1 % (42.0-52.0); Hemoglobin 9.5 g/dL (14.0-18.0); Mean Corpuscular HGB Conc 32.6 g/dl (32-36); Mean Corpuscular Hemoglobin 28.6 pg (26-34); Mean Corpuscular Volume 87.7 fl (80-100); Platelet Count Result 524 k/mm3 (150-375); Red Blood Count 3.32 M/mm3 (4.6-6.20); Red Cell Distribution Width 14.3 % (11.5-14.5); White Blood Count 13.7 K/mm3 (4.5-10.0)
[2021-12-18 06:43] LABS: Anion Gap 4 mmol/L (8-16); Blood Urea Nitrogen 33 mg/dL (9-20); Calcium 7.1 mg/dL (8.4-10.2); Carbon Dioxide 33 mmol/L (22-30); Chloride 86 mmol/L (98-107); Estimated CRCL calculation 42 ml/min; Estimated Glomerular Filt Rate 46; Glucose 149 mg/dL (65-110); Magnesium 1.8 mg/dL (1.6-2.3); Sodium 123 mmol/L (137-145)
[2021-12-18 07:24] LABS: Glucose Point of Care 162 mg/dl (65-105)
[2021-12-18] MEDS: SODIUM CHLORIDE 500 MG TABLET 1500 MG PO ×2 (09:01→17:40)
[2021-12-18] MEDS: ENOXAPARIN 40 MG/0.4 ML SYRINGE SUB-Q (09:02)
[2021-12-18] MEDS: LOVASTATIN 20 MG TABLET 40 MG PO (09:02)
[2021-12-18] MEDS: guaiFENesin 12 HR 600 MG TABCR 1200 MG PO ×2 (09:02→21:26)
[2021-12-18] MEDS: PANTOPRAZOLE SODIUM IV 40 MG VIAL IV PUSH (09:02)
[2021-12-18] MEDS: FUROSEMIDE INJ 100 MG/10 ML VIAL 80 MG IV PUSH ×2 (09:02→17:42)
[2021-12-18] MEDS: ASPIRIN 81 MG ENTERIC TABLET PO (09:03)
[2021-12-18] MEDS: EMPAGLIFLOZIN 10 MG TABLET PO (09:03)
[2021-12-18] MEDS: INSULIN ASPART (*BKC) 100 UNITS/ML SUB-Q ×4 (09:03→17:41)
[2021-12-18] MEDS: CALCIUM CARBONATE (OSCAL) 500 MG TABLET PO (09:03)
[2021-12-18] MEDS: carvediloL 3.125 MG TABLET PO ×2 (09:03→21:26)
[2021-12-18] MEDS: INSULIN GLARGINE (*BKC) 100 UNITS/ML 30 UNITS SUB-Q (09:07)
[2021-12-18] MEDS: POTASSIUM CHLORIDE 20 MEQ TABLET 40 MEQ PO ×2 (10:33→17:53)
[2021-12-18] MEDS: MAGNESIUM SULF 2 GM/WATER 50ML 2 GM/50 ML BAG IVPB (10:34)
[2021-12-18 11:34] LABS: Glucose Point of Care 226 mg/dl (65-105)
--- NOTE | 2021-12-18 11:51 | PM.PNNEP ---
Progress Note: A&P Assessment and Plan (1) Stage 3b chronic kidney disease: Code(s): N18.32 - Chronic kidney disease, stage 3b Status: Chronic Assessment and Plan: baseline creatinine seems to run ~ 1.4 - 1.7mg/dl presumably due to hypertension, diabetes, chronic pre-renal azotemia from his cardiomyopathy, and vascular disease evaluation to date noted: renal ultrasound is normal Echo shows EF of only 20-25% urine sodium is less than 5 urine protein to creatinine ratio is 290 urinalysis shows some protein complements/SACHA/serum immunofixation negative; urine immunofixation pending creatinine relatively stable in spite of diuresus follow trend of UOP and repeat labs (2) Hyponatremia: Code(s): E87.1 - Hypo-osmolality and hyponatremia Status: Chronic Assessment and Plan: has had this issue on/off for that last few years - likely related to his known cardiomyopathy and HCTZ use however, acutely worse on this hospitalization - probably from pneumonia evaluation to date: TSH and cortisol level okay no history of malignancy 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 (refused brain CT) continue current therapy of fluid restriction, lasix, and salt tabs given worsening hyponatremia, will d/c metolazone (3) CHF (congestive heart failure): Code(s): I50.9 - Heart failure, unspecified Status: Acute Assessment and Plan: complicated by chest pain/ACS + underlying cardiomyopathy Cardiology following continue aggressive diuresis as tolerated (4) Pneumonia: Code(s): J18.9 - Pneumonia, unspecified organism Status: Acute Assessment and Plan: as noted by imaging to date on antibiotics follow culture data (5) Hypertension: Qualifiers: Hypertension type: essential hypertension Qualified Code(s): I10 - Essential (primary) hypertension Code(s): I10 - Essential (primary) hypertension Status: Chronic Assessment and Plan: reasonable control at this time continue to follow trend of hemodynamics (6) Insulin dependent diabetes mellitus: Status: Chronic Assessment and Plan: follow accuchecks on Lantus and SSI Will continue to follow. Subjective Date/time seen: 12/18/21 11:51 Renal function continues to tolerate aggressive diuresis; however, worsening hyponatremia noted by AM labs (possibly secondary to metolazone which is a thiazide diuretic?); oxygen is being weaned as well; no apparent distress voiced at the time of my visit. Exam Narrative: General: elderly male in NAD Heart: normal S1 and S2; no rub Lungs: decreased at bases Abdomen: soft, nontender, nondistended, positive bowel sounds Extremities: no cyanosis or clubbing; 1+ edema Skin: warm and intact Objective Data Vital Signs Vital Signs: Vital Signs Temp Pulse Resp BP Pulse Ox 12/18/21 11:37 36.3 C L 68 20 131/60 94 12/18/21 10:00 83 12/18/21 09:03 83 12/18/21 08:40 80 18 12/18/21 08:34 92 12/18/21 08:33 90 18 12/18/21 08:09 98 12/18/21 08:00 77 12/18/21 07:45 36.0 C L 77 24 H 133/60 98 12/18/21 06:00 79 12/18/21 04:00 36.5 C 79 23 H 128/55 L 98 12/18/21 03:58 78 26 H 94 12/18/21 02:33 83 21 H 94 12/18/21 02:25 82 24 H 12/18/21 02:22 83 26 H 95 12/18/21 02:00 78 12/18/21 00:00 36.5 C 92 18 123/53 L 90 12/17/21 23:43 79 26 H 94 12/17/21 22:00 85 12/17/21 20:50 93 20 12/17/21 20:43 92 22 H 92 12/17/21 20:19 87 12/17/21 20:00 36.3 C L 87 24 H 112/44 L 90 12/17/21 18:00 86 12/17/21 16:21 36.9 C 87 28 H 126/51 L 91 12/17/21 16:00 87 92 12/17/21 14:57 70 16 12/17/21 14:00 87 Intake/Output Intake/Output: Intake & Output 12/15/21 12/16/21 12/17/21 12/18/21 23:59 23:59 23:59 23:59 Intake Total 2110 2210 1720 953 Output Total 2300 0145 4193 27
--- NOTE | 2021-12-18 11:51 | P.PNNP_ITS ---
Progress Note: A&P Assessment and Plan (1) Stage 3b chronic kidney disease: Code(s): N18.32 - Chronic kidney disease, stage 3b Status: Chronic Assessment and Plan: * baseline creatinine seems to run ~ 1.4 - 1.7mg/dl * presumably due to hypertension, diabetes, chronic pre-renal azotemia from his cardiomyopathy, and vascular disease * evaluation to date noted: * renal ultrasound is normal * Echo shows EF of only 20-25% * urine sodium is less than 5 * urine protein to creatinine ratio is 290 * urinalysis shows some protein * complements/SACHA/serum immunofixation negative; urine immunofixation pending * creatinine relatively stable in spite of diuresus * follow trend of UOP and repeat labs (2) Hyponatremia: Code(s): E87.1 - Hypo-osmolality and hyponatremia Status: Chronic Assessment and Plan: * has had this issue on/off for that last few years - likely related to his known cardiomyopathy and HCTZ use * however, acutely worse on this hospitalization - probably from pneumonia * evaluation to date: * TSH and cortisol level okay * no history of malignancy * 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 (refused brain CT) * continue current therapy of fluid restriction, lasix, and salt tabs * given worsening hyponatremia, will d/c metolazone (3) CHF (congestive heart failure): Code(s): I50.9 - Heart failure, unspecified Status: Acute Assessment and Plan: * complicated by chest pain/ACS + underlying cardiomyopathy * Cardiology following * continue aggressive diuresis as tolerated (4) Pneumonia: Code(s): J18.9 - Pneumonia, unspecified organism Status: Acute Assessment and Plan: * as noted by imaging to date * on antibiotics * follow culture data (5) Hypertension: Qualifiers: Hypertension type: essential hypertension Qualified Code(s): I10 - Essential (primary) hypertension Code(s): I10 - Essential (primary) hypertension Status: Chronic Assessment and Plan: * reasonable control at this time * continue to follow trend of hemodynamics (6) Insulin dependent diabetes mellitus: Status: Chronic Assessment and Plan: * follow accuchecks * on Lantus and SSI Will continue to follow. Subjective Date/time seen: 12/18/21 11:51 Renal function continues to tolerate aggressive diuresis; however, worsening hyponatremia noted by AM labs (possibly secondary to metolazone which is a thiazide diuretic?); oxygen is being weaned as well; no apparent distress voiced at the time of my visit. Exam Narrative: General: elderly male in NAD Heart: normal S1 and S2; no rub Lungs: decreased at bases Abdomen: soft, nontender, nondistended, positive bowel sounds Extremities: no cyanosis or clubbing; 1+ edema Skin: warm and intact Objective Data Vital Signs Vital Signs: Vital Signs Temp Pulse Resp BP Pulse Ox 12/18/21 11:37 36.3 C L 68 20 131/60 94 12/18/21 10:00 83 12/18/21 09:03 83 12/18/21 08:40 80 18 12/18/21 08:34 92 12/18/21 08:33 90 18 12/18/21 08:09 98 12/18/21 08:00 77 12/18/21 07:45 36.0 C L 77 24 H 133/60 98 12/18/21 06:00 79 12/18/21 04:00 36.5 C 79 23 H 128/55 L 98 12/18/21 03:58 78 26 H 94 12/18/21 02:33 83 21 H
--- NOTE | 2021-12-18 13:09 | PCOTNOTE ---
Patient refused treatment this session due to he had just finished using the bedside commode, and I'm gonna try to finish eating my lunch. Per RN, she told him he had to get up for dinner no questions. Patient also stated this and refused any other activity at this time.
[2021-12-18 17:35] LABS: Glucose Point of Care 145 mg/dl (65-105)
--- NOTE | 2021-12-18 18:51 | PM.IMPN ---
Progress Note: A&P Assessment and Plan (1) Hyponatremia: Code(s): E87.1 - Hypo-osmolality and hyponatremia Status: Chronic (2) CHF (congestive heart failure): Code(s): I50.9 - Heart failure, unspecified Status: Acute (3) Stage 3b chronic kidney disease: Code(s): N18.32 - Chronic kidney disease, stage 3b Status: Chronic (4) DVT prophylaxis: Code(s): Z29.9 - Encounter for prophylactic measures, unspecified Status: Acute Additional Plan # ischemic cardiomyopathy?, heart failure with reduced ejection fraction # NSTEMI # acute hypoxic respiratory failure - echocardiogram shows EF 20-25% and grade 2 diastolic dysfunction -continue IV diuresis Lasix 80 mg b.i.d., metolazone ( 4 L urine output, goal 3-5 L output daily) - continue Coreg -with heart failure new Jardiance 10 mg daily - continue PT and OT - statin, aspirin, (Plavix held for thoracentesis), Coreg, starting Entresto ( kidney function appears to be at baseline, CRISELDA-inhibitor reaction is nausea) - will likely need to be on spironolactone as well considering his ejection fraction - currently on 4 L oxygen by nasal cannula, continue weaning as we diurese # electrolyte disturbances -Secondary to diuresis -potassium 3.0 will give 40 mg once x2 -Hypomagnesemia will give 2 g Mag sulfate for magnesium 1.8 # pleural effusion -Likely secondary to heart failure -Plavix has been held for thoracentesis tomorrow - incentive spirometer, chest PT # community-acquired pneumonia # severe sepsis secondary pneumonia - sputum cultures growing Staph aureus - antibiotics: Vancomycin 5/2-, Primaxin 5/4- - leukocytosis improving down the 13 K from 20 K - continue DuoNebs, Mucinex # hypervolemic hyponatremia and hypochloremia - will continue to monitor sodium - nephrology consulted -started on salt tabs # ALESSANDRA and CKD stage 3 - renal ultrasound normal, continue diuresis - creatinine baseline 1.3-1.6, currently 1.5 # chronic conditions - type 2 diabetes: Hemoglobin A1c 11.4, continue sliding scale insulin, Accu-Cheks a.c. HS, hypoglycemia protocol, insulin as per 4 units t.i.d. a.c., glargine 30 units daily - GERD: Protonix Diet: Cardiac, fluid restriction 1 L DVT prophylaxis: SCDs, holding Lovenox for thoracentesis tomorrow Code status: Full code Disposition: Continue diuresis, downgrade to med tele Time Spent With Patient Time with patient: 15 - 25 minutes Subjective Date/time seen: 12/18/21 18:51 patient seen examined. He is doing well with no new complaints. Will continue diuresing replete potassium magnesium as needed. He denies fever, chills, nausea, vomiting, diarrhea, chest pain. he has been weaned down from 4 L oxygen to 2 L by nasal cannula. Patient we downgraded to medical floor with telemetry. he is responding well to the diuresis neg -1.3L. Review of Systems Review of Systems: All systems reviewed & are unremarkable except as noted in HPI and below Exam Narrative: - GENERAL: pleasant elderly male breathing comfortably on 2 L oxygen by nasal cannula - EYES: EOMI. Anicteric. - HENT: Moist mucous membranes. - LUNGS: Improved lung sounds, clear to auscultation no wheezing - CARDIOVASCULAR: Regular rate and rhythm. No murmur. midline scar - ABDOMEN: Soft, non-tender and non-distended. No palpable masses. - : [place] in place - EXTREMITIES: No edema. Peripheral pulses 2+. Non-tender. - NEUROLOGIC: No focal neurological deficits. CN II-XII grossly intact. - PSYCHIATRIC: Awake, Alert and oriented x 3. Appropriate mood and affect. - SKIN: No rashes or lesions. Warm. - LYMPH: No cervical lymphadenopathy. Objective Data Vital Signs Vital Signs: Vital Signs - 24 hr 12/17/21 20:00 12/17/21 20:19 12/17/21 20:43 Temperature 36.3 C L Pulse Rate 87 87 92 Respiratory Rate 24 H 22 H Blood Pressure 112/44 L Pulse Oximetry 90 92 12/17/21 20:50 12/17/21 22:00 12/17/21 23:43 Temperature
[2021-12-18 19:57] LABS: Glucose Point of Care 245 mg/dl (65-105)
[2021-12-18] MEDS: SACUBITRIL/VALSARTAN 24-26 MG TABLET 1 TAB PO (21:26)
[2021-12-18] MEDS: SALINE LOCK FLUSH 10 ML IV PUSH (21:27)
[2021-12-19] VITALS (23 sets, daily range): BP systolic 104–125; BP diastolic 49–60; PULSE 72–88; RESP 13–24; TEMP 36.4–36.8; O2SAT 91–99
[2021-12-19] MEDS: IPRATROPIUM BR 0.02% INH SOLN 0.5 MG/2.5 ML VIAL INHALATION ×4 (01:07→20:27)
[2021-12-19] MEDS: LEVALBUTEROL NEB 1.25 MG/3 ML 0.63 MG INHALATION ×4 (01:07→20:27)
[2021-12-19 05:47] LABS: Basophils Percent Auto 0.2 % (0.2-1.2); Eosinophils Percent Auto 0.3 % (0-4.4); Hematocrit 28.8 % (42.0-52.0); Hemoglobin 10.1 g/dL (14.0-18.0); Immature Granulocyte Absolute 0.05 K/mm3 (0.00-0.031); Immature Granulocyte Percent A 0.5 % (0-0.5); Lymphocytes Absolute Auto 1.27 K/mm3 (0.9-3.2); Lymphocytes Percent Auto 11.6 % (18.3-44.2); Mean Corpuscular HGB Conc 35.1 g/dl (32-36); Mean Corpuscular Hemoglobin 29.4 pg (26-34); Mean Corpuscular Volume 83.7 fl (80-100); Mean Platelet Volume 9.7 fl (7.4-10.4); Monocytes Absolute Auto 1.1 K/mm3 (0.1-0.6); Monocytes Percent Auto 9.7 % (2.6-8.5); Neutrophils Absolute Auto 8.5 K/mm3 (1.3-6.7); Neutrophils Percent Auto 77.7 % (45.5-73.1); Platelet Count Result 557 k/mm3 (150-375); Red Blood Count 3.44 M/mm3 (4.6-6.20); Red Cell Distribution Width 14.2 % (11.5-14.5)
[2021-12-19 05:58] LABS: INR 1.3; Prothrombin Time 16.1 Seconds (11.1-14.7)
[2021-12-19 05:59] LABS: Partial Thromboplastin Time 43.1 SECONDS (22.3-36.8)
[2021-12-19 06:02] LABS: Albumin Level 2.8 g/dL (3.5-5.1); Anion Gap 5 mmol/L (8-16); Blood Urea Nitrogen 38 mg/dL (9-20); Calcium 7.5 mg/dL (8.4-10.2); Carbon Dioxide 34 mmol/L (22-30); Chloride 85 mmol/L (98-107); Estimated CRCL calculation 37 ml/min; Estimated Glomerular Filt Rate 39; Glucose 150 mg/dL (65-110); Magnesium 2.3 mg/dL (1.6-2.3); Phosphorus 4.4 mg/dL (2.5-4.5); Potassium 3.2 mmol/L (3.4-5.0); Sodium 124 mmol/L (137-145)
[2021-12-19] MEDS: SALINE LOCK FLUSH 10 ML IV PUSH ×3 (06:08→20:51)
[2021-12-19 07:58] LABS: Glucose Point of Care 161 mg/dl (65-105)
[2021-12-19] MEDS: carvediloL 3.125 MG TABLET PO ×2 (09:05→20:50)
[2021-12-19] MEDS: ASPIRIN 81 MG ENTERIC TABLET PO (09:05)
[2021-12-19] MEDS: CALCIUM CARBONATE (OSCAL) 500 MG TABLET PO (09:05)
[2021-12-19] MEDS: SODIUM CHLORIDE 500 MG TABLET 1500 MG PO ×2 (09:05→17:49)
[2021-12-19] MEDS: PANTOPRAZOLE SODIUM IV 40 MG VIAL IV PUSH (09:06)
[2021-12-19] MEDS: SACUBITRIL/VALSARTAN 24-26 MG TABLET 1 TAB PO ×2 (09:06→20:51)
[2021-12-19] MEDS: EMPAGLIFLOZIN 10 MG TABLET PO (09:06)
[2021-12-19] MEDS: guaiFENesin 12 HR 600 MG TABCR 1200 MG PO ×2 (09:06→20:49)
[2021-12-19] MEDS: LOVASTATIN 20 MG TABLET 40 MG PO (09:06)
[2021-12-19] MEDS: INSULIN GLARGINE (*BKC) 100 UNITS/ML 30 UNITS SUB-Q (09:09)
--- NOTE | 2021-12-19 09:38 | PM.IMPN ---
Progress Note: A&P Assessment and Plan (1) Acute respiratory failure: Code(s): J96.00 - Acute respiratory failure, unspecified whether with hypoxia or hypercapnia Status: Acute Assessment and Plan: On admission, acute respiratory failure related to pneumonia. Patient was started on broad-spectrum IV antibiotics with antifungal feet as well. Legionella Ag negative, pneumococcal Ag positive. Blood cultures negative. Coccidiomycosis titers negative. Antifungal treatment stopped and abx adjusted to Rocephin monotherapy. WBC dropped to 16K. Sputum result returned on 12/12/21 growing Staph aureus so vancomycin started. Sensitivity shows MRSA. WBC increased to 23.6K and was having fevers. Chest x-ray showing worsening infiltrates and moderate right effusion. Primaxin added 12/14/21. Started on Lasix IV as well. Having good UOP (3.6L yesterday). Continue IV Lasix as renal function and blood pressure tolerate. He was re-cultured on 12/14/21; UCx negative and BCx NGTD. COVID and Influenza negative. LE dopplers negative for DVT. Fevers have resolved and WBC normal now. Continue Primaxin and vancomycin. Wean O2 as tolerated. (2) Pneumonia: Code(s): J18.9 - Pneumonia, unspecified organism Status: Acute Assessment and Plan: Was on broad-spectrum antibiotics but changed to Rocephin monotherapy when pneumococcal antigen returned positive. Vancomycin added 12/12/21 due to staph in sputum culture. Changed Rocephin to Primaxin on 12/14/21 for climbing white count and fever. As above (3) Acute coronary syndrome: Code(s): I24.9 - Acute ischemic heart disease, unspecified Status: Acute Assessment and Plan: Acute coronary syndrome with EKG showing ST-elevation in V2 and V3 with no reciprocal changes and Trop to 16 -> 6 consistent with STEMI. Cardiology consulted and appreciate their input. Echo showing EF 20-25% with Grade II diastolic dysfunction. No further chest pain. Heparin gtt was stopped. Currently on ASA, Coreg and statin. NTG available prn. Ischemia evaluation when able. Cardiology was okay to stop Plavix for 5 days for thoracentesis on today (4) CHF (congestive heart failure): Code(s): I50.9 - Heart failure, unspecified Status: Acute Assessment and Plan: Echo showing EF 20-25% with Grade II diastolic dysfunction. Currently undergoing aggressive diuresis. CXTR improving. Continue Coreg, Entresto. (5) Acute hyponatremia: Code(s): E87.1 - Hypo-osmolality and hyponatremia Status: Acute Assessment and Plan: Possibly related to fluid overload and poor renal perfusion from the EF 20%. Shalom <5. 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 Overall, Na 124 today. Continue NaCl tabs. Appreciate Nephrology consultation. (6) Type 2 diabetes mellitus with hyperglycemia, with long-term current use of insulin: Code(s): E11.65 - Type 2 diabetes mellitus with hyperglycemia; Z79.4 - [facility] (current) use of insulin Status: Acute Assessment and Plan: A1c 11.4. Patient with known insulin-dependent diabetes. Admitted and found to have DKA treated with DKA protocol. DKA has resolved. Continue AccuCheks covering with sliding scale. Hypoglycemia protocol available as needed. community nutrition educator and laundry attendant were consulted. Currently on Lantus. Morning sugar 150 so continue Lantus. Continue Novolog at meal times. Empagliflozin added. Continue current medical regiment. (7) Acute renal failure superimposed on stage 3 chronic kidney disease: Code(s): N17.9 - Acute kidney failure, unspecified; N18.30 - Chronic kidney disease, stage 3 unspecified Status: Acute Assessment and Plan: Baseline Cr 1.3-1.6. Cr 2.7 on admission. Suspect related to infection, ATN, DKA and dehydration. Renal US normal. Cr up to 1.7 today with diuretics. Entresto added as well. Follow closely (8) LV dysfunction: Code(s): I51.9 - Heart disease, unspecified Status: Acute
[2021-12-19] MEDS: FUROSEMIDE INJ 100 MG/10 ML VIAL 80 MG IV PUSH ×2 (09:51→16:57)
--- NOTE | 2021-12-19 11:16 | P.PNNP_ITS ---
Progress Note: A&P Assessment and Plan (1) Stage 3b chronic kidney disease: Code(s): N18.32 - Chronic kidney disease, stage 3b Status: Chronic Assessment and Plan: * baseline creatinine seems to run ~ 1.4 - 1.7mg/dl * presumably due to hypertension, diabetes, chronic pre-renal azotemia from his cardiomyopathy, and vascular disease * evaluation to date noted: * renal ultrasound is normal * Echo shows EF of only 20-25% * urine sodium is less than 5 * urine protein to creatinine ratio is 290 * urinalysis shows some protein * complements/SACHA/serum immunofixation negative; urine immunofixation pending * creatinine relatively stable in spite of diuresis - consider switch to oral diuretics tomorrow? * follow trend of UOP and repeat labs (2) Hyponatremia: Code(s): E87.1 - Hypo-osmolality and hyponatremia Status: Chronic Assessment and Plan: * has had this issue on/off for that last few years - likely related to his known cardiomyopathy and HCTZ use * however, acutely worse on this hospitalization - probably from pneumonia * evaluation to date: * TSH and cortisol level okay * no history of malignancy * no SPIKE MACHINE OPERATOR issues (refused brain CT) * continue current therapy of fluid restriction, lasix, and salt tabs * given worsening hyponatremia, off metolazone (3) CHF (congestive heart failure): Code(s): I50.9 - Heart failure, unspecified Status: Acute Assessment and Plan: * complicated by chest pain/ACS + underlying cardiomyopathy * Cardiology following * continue aggressive diuresis as tolerated (4) Pneumonia: Code(s): J18.9 - Pneumonia, unspecified organism Status: Acute Assessment and Plan: * as noted by imaging to date * on antibiotics * follow culture data (5) Hypertension: Qualifiers: Hypertension type: essential hypertension Qualified Code(s): I10 - Essential (primary) hypertension Code(s): I10 - Essential (primary) hypertension Status: Chronic Assessment and Plan: * reasonable control at this time * continue to follow trend of hemodynamics (6) Insulin dependent diabetes mellitus: Status: Chronic Assessment and Plan: * follow accuchecks * on Lantus and SSI Will continue to follow. Subjective Date/time seen: 12/19/21 11:16 About to go down for thoracentesis at the time of my visit; continues to tolerate diuresis with relative stability in volume status; sodium also holding steady (metolazone discontinued due to drop in sodium level over the weekend); respiratory status stable if not improving. Exam Narrative: General: elderly male in NAD Heart: normal S1 and S2; no rub Lungs: decreased at bases Abdomen: soft, nontender, nondistended, positive bowel sounds Extremities: no cyanosis or clubbing; 1+ edema Skin: no rash Objective Data Vital Signs Vital Signs: Vital Signs Temp Pulse Resp BP Pulse Ox 12/19/21 10:50 92 12/19/21 08:27 82 20 12/19/21 08:21 80 20 92 12/19/21 08:18 80 20 12/19/21 08:00 36.8 C 84 20 118/60 92 12/19/21 04:00 36.7 C 78 23 H 125/60 99 12/19/21 01:25 88 20 12/19/21 01:15 88 20 94 12/19/21 00:00 78 12/18/21 23:37 36.6 C 80 20 110/70 97 12/18/21 21:26 83
--- NOTE | 2021-12-19 11:16 | PM.PNNEP ---
Progress Note: A&P Assessment and Plan (1) Stage 3b chronic kidney disease: Code(s): N18.32 - Chronic kidney disease, stage 3b Status: Chronic Assessment and Plan: baseline creatinine seems to run ~ 1.4 - 1.7mg/dl presumably due to hypertension, diabetes, chronic pre-renal azotemia from his cardiomyopathy, and vascular disease evaluation to date noted: renal ultrasound is normal Echo shows EF of only 20-25% urine sodium is less than 5 urine protein to creatinine ratio is 290 urinalysis shows some protein complements/SACHA/serum immunofixation negative; urine immunofixation pending creatinine relatively stable in spite of diuresis - consider switch to oral diuretics tomorrow? follow trend of UOP and repeat labs (2) Hyponatremia: Code(s): E87.1 - Hypo-osmolality and hyponatremia Status: Chronic Assessment and Plan: has had this issue on/off for that last few years - likely related to his known cardiomyopathy and HCTZ use however, acutely worse on this hospitalization - probably from pneumonia evaluation to date: TSH and cortisol level okay no history of malignancy no OCEAN FREIGHT MANAGER issues (refused brain CT) continue current therapy of fluid restriction, lasix, and salt tabs given worsening hyponatremia, off metolazone (3) CHF (congestive heart failure): Code(s): I50.9 - Heart failure, unspecified Status: Acute Assessment and Plan: complicated by chest pain/ACS + underlying cardiomyopathy Cardiology following continue aggressive diuresis as tolerated (4) Pneumonia: Code(s): J18.9 - Pneumonia, unspecified organism Status: Acute Assessment and Plan: as noted by imaging to date on antibiotics follow culture data (5) Hypertension: Qualifiers: Hypertension type: essential hypertension Qualified Code(s): I10 - Essential (primary) hypertension Code(s): I10 - Essential (primary) hypertension Status: Chronic Assessment and Plan: reasonable control at this time continue to follow trend of hemodynamics (6) Insulin dependent diabetes mellitus: Status: Chronic Assessment and Plan: follow accuchecks on Lantus and SSI Will continue to follow. Subjective Date/time seen: 12/19/21 11:16 About to go down for thoracentesis at the time of my visit; continues to tolerate diuresis with relative stability in volume status; sodium also holding steady (metolazone discontinued due to drop in sodium level over the weekend); respiratory status stable if not improving. Exam Narrative: General: elderly male in NAD Heart: normal S1 and S2; no rub Lungs: decreased at bases Abdomen: soft, nontender, nondistended, positive bowel sounds Extremities: no cyanosis or clubbing; 1+ edema Skin: no rash Objective Data Vital Signs Vital Signs: Vital Signs Temp Pulse Resp BP Pulse Ox 12/19/21 10:50 92 12/19/21 08:27 82 20 12/19/21 08:21 80 20 92 12/19/21 08:18 80 20 12/19/21 08:00 36.8 C 84 20 118/60 92 12/19/21 04:00 36.7 C 78 23 H 125/60 99 12/19/21 01:25 88 20 12/19/21 01:15 88 20 94 12/19/21 00:00 78 12/18/21 23:37 36.6 C 80 20 110/70 97 12/18/21 21:26 83 12/18/21 20:27 36.7 C 86 20 119/56 L 97 12/18/21 20:16 90 20 12/18/21 20:06 90 20 92 12/18/21 20:00 84 97 Intake/Output Intake/Output: Intake & Output 12/16/21 12/17/21 12/18/21 12/19/21 23:59 23:59 23:59 23:59 Intake Total 2210 1720 2393 300 Output Total 4075 3375 3600 4300 Balance -4552 -0117 -4473 -7456 Meds/Results Medications: Active Medications Generic Name Dose Route Start Last Admin Trade Name Darell PRN Reason Stop Dose Admin Acetaminophen 650 mg 12/05/21 00:07 12/16/21 20:00 Acetaminophen 325 Mg Tablet PO 650 mg Q4H PRN Administration Mild Pain (1-3) or Fever Aspirin 81 mg
--- NOTE | 2021-12-19 11:53 | PCOTNOTE ---
Attempted to see patient this am, however patient was off floor for testing/procedure at this time.
--- NOTE | 2021-12-19 12:50 | PCOTNOTE ---
Attempted to see patient second attempt, however patient was still off floor at this time.
[2021-12-19 13:59] LABS: Appearance Pleural Fluid Cloudy (Clear); Color Pleural Fluid Yellow (Colorless); Pleural fluid source Pleural fluid
[2021-12-19 14:00] LABS: Lymphocytes Pleural Fluid 1 %; Monocytes Pleural Fluid 9 %; Neutrophils Pleural Fluid 90 % (0-25)
[2021-12-19 14:10] LABS: Vancomycin Trough 20.3 ug/mL (10.0-20.0)
--- NOTE | 2021-12-19 14:50 | PCPTNOTE ---
Attempted to see patient for PT at this time, patient declined due to wanting to eat lunch before he does any activity.
[2021-12-19 15:06] LABS: Glucose Point of Care 145 mg/dl (65-105)
--- NOTE | 2021-12-19 16:29 | PCNFU ---
Nutrition Follow-Up Complete: Inadequate Oral Intake as related to Pneumonia as evidenced by poor po intake reported. Goal: Adequate Intake of at least 75% of meals/supplements Pt is progressing towards goal. Continue with current goal at this time. Pt current nutrition is Diabetic Carb Consistent diet and dietary supplements Last recorded weight is 92 kg, stable. Bowel Motility: +BM reported 12/15/21 Labs Reviewed: Hgb 10.1, Hct 28.8, Alb 2.8, Na 124, K 3.2, GFR 39, BUN 38, Cr 1.70, Glu 150, Ca 7.5, APTT 43.1 Meds Noted: Aspirin, Oscal, Coreg, Jardiance, Lasix, Mucinex, Cilastatin Sodium, Lantus, Levalbuterol Hcl, Lovastatin, Protonix, Entresto Skin: Medial buttock maceration Additional Notes: Pt had thoracentesis performed today (12/19/21). Reported intake is 25% x2, 75%, and 50%. Pt is receiving dietary supplements of Glucerna Shake BID providing an additional 220kcal and 10g of protein per shake. Pt remains on fluid restriction of 1,000mL/day. Agree with diet orders. Recommend increasing dietary supplement from BID to TID if intake remains <50%. Will continue to follow. RD will monitor every 5 days.
[2021-12-19 16:33] LABS: Glucose Point of Care 150 mg/dl (65-105)
[2021-12-19] MEDS: INSULIN ASPART (*BKC) 100 UNITS/ML SUB-Q (17:00)
[2021-12-19 18:56] LABS: Cholesterol 75 mg/dL (0-200); Lactate Dehydrogenase 619 U/L (313-618)
[2021-12-19 20:47] LABS: Glucose Point of Care 275 mg/dl (65-105)
[2021-12-20] VITALS (21 sets, daily range): BP systolic 104–120; BP diastolic 45–55; PULSE 65–83; RESP 16–24; TEMP 36.4–38; O2SAT 95–99
[2021-12-20] MEDS: IPRATROPIUM BR 0.02% INH SOLN 0.5 MG/2.5 ML VIAL INHALATION ×4 (01:57→20:21)
[2021-12-20] MEDS: LEVALBUTEROL NEB 1.25 MG/3 ML 0.63 MG INHALATION ×4 (01:57→20:20)
[2021-12-20] MEDS: SALINE LOCK FLUSH 10 ML IV PUSH ×3 (05:16→21:24)
[2021-12-20 06:02] LABS: Basophils Absolute Auto 0.1 K/mm3 (0.0-0.1); Basophils Percent Auto 0.7 % (0.2-1.2); Eosinophils Absolute Auto 0.1 K/mm3 (0-0.3); Eosinophils Percent Auto 0.6 % (0-4.4); Hematocrit 33.6 % (42.0-52.0); Hemoglobin 10.8 g/dL (14.0-18.0); Immature Granulocyte Absolute 0.04 K/mm3 (0.00-0.031); Immature Granulocyte Percent A 0.4 % (0-0.5); Lymphocytes Absolute Auto 1.06 K/mm3 (0.9-3.2); Lymphocytes Percent Auto 10.7 % (18.3-44.2); Mean Corpuscular HGB Conc 32.1 g/dl (32-36); Mean Corpuscular Hemoglobin 28.3 pg (26-34); Mean Platelet Volume 9.8 fl (7.4-10.4); Monocytes Absolute Auto 1.1 K/mm3 (0.1-0.6); Monocytes Percent Auto 10.9 % (2.6-8.5); Neutrophils Absolute Auto 7.6 K/mm3 (1.3-6.7); Neutrophils Percent Auto 76.7 % (45.5-73.1); Platelet Count Result 521 k/mm3 (150-375); Red Blood Count 3.82 M/mm3 (4.6-6.20); Red Cell Distribution Width 14.5 % (11.5-14.5); White Blood Count 9.9 K/mm3 (4.5-10.0)
[2021-12-20 06:14] LABS: Albumin Level 2.8 g/dL (3.5-5.1); Anion Gap 6 mmol/L (8-16); Blood Urea Nitrogen 48 mg/dL (9-20); Calcium 7.4 mg/dL (8.4-10.2); Carbon Dioxide 34 mmol/L (22-30); Chloride 85 mmol/L (98-107); Estimated CRCL calculation 37 ml/min; Estimated Glomerular Filt Rate 39; Glucose 177 mg/dL (65-110); Magnesium 2.5 mg/dL (1.6-2.3); Phosphorus 5.1 mg/dL (2.5-4.5); Potassium 2.9 mmol/L (3.4-5.0); Sodium 125 mmol/L (137-145)
[2021-12-20 07:54] LABS: Glucose Point of Care 207 mg/dl (65-105)
[2021-12-20] MEDS: EMPAGLIFLOZIN 10 MG TABLET PO (08:21)
[2021-12-20] MEDS: SODIUM CHLORIDE 500 MG TABLET 1500 MG PO ×2 (08:21→17:23)
[2021-12-20] MEDS: ASPIRIN 81 MG ENTERIC TABLET PO (08:21)
[2021-12-20] MEDS: guaiFENesin 12 HR 600 MG TABCR 1200 MG PO ×2 (08:22→21:25)
[2021-12-20] MEDS: SACUBITRIL/VALSARTAN 24-26 MG TABLET 1 TAB PO ×2 (08:22→21:27)
[2021-12-20] MEDS: FUROSEMIDE INJ 100 MG/10 ML VIAL 80 MG IV PUSH ×2 (08:22→17:23)
[2021-12-20] MEDS: CALCIUM CARBONATE (OSCAL) 500 MG TABLET PO (08:22)
[2021-12-20] MEDS: LOVASTATIN 20 MG TABLET 40 MG PO (08:22)
[2021-12-20] MEDS: PANTOPRAZOLE SODIUM IV 40 MG VIAL IV PUSH (08:22)
[2021-12-20] MEDS: INSULIN ASPART (*BKC) 100 UNITS/ML SUB-Q ×5 (08:26→17:23)
[2021-12-20] MEDS: INSULIN GLARGINE (*BKC) 100 UNITS/ML 30 UNITS SUB-Q (08:26)
[2021-12-20] MEDS: carvediloL 3.125 MG TABLET PO ×2 (09:46→21:25)
[2021-12-20] MEDS: POTASSIUM CHLORIDE 20 MEQ PACKET (FOR LIQUID) 40 MEQ PO ×2 (09:46→17:23)
--- NOTE | 2021-12-20 10:38 | P.PNNP_ITS ---
Progress Note: A&P Assessment and Plan (1) Stage 3b chronic kidney disease: Code(s): N18.32 - Chronic kidney disease, stage 3b Status: Chronic Assessment and Plan: * baseline creatinine seems to run ~ 1.4 - 1.7mg/dl * presumably due to hypertension, diabetes, chronic pre-renal azotemia from his cardiomyopathy, and vascular disease * evaluation to date noted: * renal ultrasound is normal * Echo shows EF of only 20-25% * urine sodium is less than 5 * urine protein to creatinine ratio is 290 * urinalysis shows some protein * complements/SACHA/serum immunofixation negative; urine immunofixation pending * creatinine relatively stable in spite of diuresis - consider switch to oral diuretics today/tomorrow? * follow trend of UOP and repeat labs (2) Hyponatremia: Code(s): E87.1 - Hypo-osmolality and hyponatremia Status: Chronic Assessment and Plan: * has had this issue on/off for that last few years - likely related to his known cardiomyopathy and HCTZ use * however, acutely worse on this hospitalization - probably from pneumonia * evaluation to date: * TSH and cortisol level okay * no history of malignancy * no INDUSTRIAL COOK issues (refused brain CT) * continue current therapy of fluid restriction, lasix, and salt tabs * given previous worsening hyponatremia, off metolazone (3) CHF (congestive heart failure): Code(s): I50.9 - Heart failure, unspecified Status: Acute Assessment and Plan: * complicated by chest pain/ACS + underlying cardiomyopathy * Cardiology following * continue aggressive diuresis as tolerated (4) Pneumonia: Code(s): J18.9 - Pneumonia, unspecified organism Status: Acute Assessment and Plan: * as noted by imaging to date * on antibiotics * follow culture data (5) Hypertension: Qualifiers: Hypertension type: essential hypertension Qualified Code(s): I10 - Essential (primary) hypertension Code(s): I10 - Essential (primary) hypertension Status: Chronic Assessment and Plan: * reasonable control at this time * continue to follow trend of hemodynamics (6) Insulin dependent diabetes mellitus: Status: Chronic Assessment and Plan: * follow accuchecks * on Lantus and SSI Will continue to follow. Subjective Date/time seen: 12/20/21 10:39 Tolerated thoracentesis yesterday without issue but no significant fluid removal able to be done due to complex/loculated effusion; continues with good diuresis on current therapy; did not sleep very well last night; no acute/apparent distress at this time; improvement in sodium noted. Exam Narrative: General: elderly male in NAD Heart: normal S1 and S2; no rub Lungs: decreased at bases Abdomen: soft, nontender, nondistended, positive bowel sounds Extremities: no cyanosis or clubbing; 1+ edema Skin: no nodules Objective Data Vital Signs Vital Signs: Vital Signs Temp Pulse Resp BP Pulse Ox 12/20/21 09:46 70 12/20/21 09:11 69 20 95 12/20/21 09:00 65 20 95 12/20/21 08:00 36.9 C 75 18 108/47 L 95 12/20/21 04:39 21 H 96 12/20/21 04:00 36.4 C 72 16 120/55 L 99 12/20/21 02:23 24 H 96 12/20/21 02:03 76 20 12/20/21 01:55 74 22 H 12/20/21 00:00 81 12/19/21 23:38 36.4 C 78 16
--- NOTE | 2021-12-20 10:38 | PM.PNNEP ---
Progress Note: A&P Assessment and Plan (1) Stage 3b chronic kidney disease: Code(s): N18.32 - Chronic kidney disease, stage 3b Status: Chronic Assessment and Plan: baseline creatinine seems to run ~ 1.4 - 1.7mg/dl presumably due to hypertension, diabetes, chronic pre-renal azotemia from his cardiomyopathy, and vascular disease evaluation to date noted: renal ultrasound is normal Echo shows EF of only 20-25% urine sodium is less than 5 urine protein to creatinine ratio is 290 urinalysis shows some protein complements/SACHA/serum immunofixation negative; urine immunofixation pending creatinine relatively stable in spite of diuresis - consider switch to oral diuretics today/tomorrow? follow trend of UOP and repeat labs (2) Hyponatremia: Code(s): E87.1 - Hypo-osmolality and hyponatremia Status: Chronic Assessment and Plan: has had this issue on/off for that last few years - likely related to his known cardiomyopathy and HCTZ use however, acutely worse on this hospitalization - probably from pneumonia evaluation to date: TSH and cortisol level okay no history of malignancy no BOOKING MANAGER issues (refused brain CT) continue current therapy of fluid restriction, lasix, and salt tabs given previous worsening hyponatremia, off metolazone (3) CHF (congestive heart failure): Code(s): I50.9 - Heart failure, unspecified Status: Acute Assessment and Plan: complicated by chest pain/ACS + underlying cardiomyopathy Cardiology following continue aggressive diuresis as tolerated (4) Pneumonia: Code(s): J18.9 - Pneumonia, unspecified organism Status: Acute Assessment and Plan: as noted by imaging to date on antibiotics follow culture data (5) Hypertension: Qualifiers: Hypertension type: essential hypertension Qualified Code(s): I10 - Essential (primary) hypertension Code(s): I10 - Essential (primary) hypertension Status: Chronic Assessment and Plan: reasonable control at this time continue to follow trend of hemodynamics (6) Insulin dependent diabetes mellitus: Status: Chronic Assessment and Plan: follow accuchecks on Lantus and SSI Will continue to follow. Subjective Date/time seen: 12/20/21 10:39 Tolerated thoracentesis yesterday without issue but no significant fluid removal able to be done due to complex/loculated effusion; continues with good diuresis on current therapy; did not sleep very well last night; no acute/apparent distress at this time; improvement in sodium noted. Exam Narrative: General: elderly male in NAD Heart: normal S1 and S2; no rub Lungs: decreased at bases Abdomen: soft, nontender, nondistended, positive bowel sounds Extremities: no cyanosis or clubbing; 1+ edema Skin: no nodules Objective Data Vital Signs Vital Signs: Vital Signs Temp Pulse Resp BP Pulse Ox 12/20/21 09:46 70 12/20/21 09:11 69 20 95 12/20/21 09:00 65 20 95 12/20/21 08:00 36.9 C 75 18 108/47 L 95 12/20/21 04:39 21 H 96 12/20/21 04:00 36.4 C 72 16 120/55 L 99 12/20/21 02:23 24 H 96 12/20/21 02:03 76 20 12/20/21 01:55 74 22 H 12/20/21 00:00 81 12/19/21 23:38 36.4 C 78 16 111/53 L 97 12/19/21 23:29 21 H 95 12/19/21 20:50 84 12/19/21 20:38 76 20 12/19/21 20:28 72 18 91 12/19/21 20:23 72 18 12/19/21 20:00 36.8 C 82 16 104/49 L 91 12/19/21 16:00 77 12/19/21 13:54 80 20 12/19/21 13:47 77 20 12/19/21 12:40 77 15 109/59 L 92 12/19/21 12:00 78 12/19/21 11:49 36.8 C 76 21 H 117/57 L 95 12/19/21 11:38 77 13 94 12/19/21 10:50 92 Intake/Output Intake/Output: Intake & Output 12/17/21 12/18/21 12/19/21 12/20/21 23:59 23:59 23:59 23:59 Intake Total 1720 2393 760 1180 Output Total 3375 3600 5700 1400 Balance -
[2021-12-20 11:49] LABS: Glucose Point of Care 343 mg/dl (65-105)
--- NOTE | 2021-12-20 13:32 | PM.IMPN ---
Progress Note: A&P Assessment and Plan (1) Acute respiratory failure: Code(s): J96.00 - Acute respiratory failure, unspecified whether with hypoxia or hypercapnia Status: Acute Assessment and Plan: On admission, acute respiratory failure related to pneumonia and ACS. Patient was started on broad-spectrum IV antibiotics with antifungal treatment as well. Legionella Ag negative, pneumococcal Ag positive. Blood cultures negative. Coccidiomycosis titers negative. Antifungal treatment stopped and abx adjusted to Rocephin monotherapy. WBC dropped to 16K. Sputum result returned on 12/12/21 growing Staph aureus so vancomycin started. Sensitivity shows MRSA. WBC increased to 23.6K and was having fevers. Chest x-ray showing worsening infiltrates and moderate right effusion. Primaxin added 12/14/21. Started on Lasix IV as well. Having good UOP (5.2L yesterday). He was re-cultured on 12/14/21; UCx negative and BCx NGTD. COVID and Influenza negative. LE dopplers negative for DVT. Fevers have resolved and WBC normal now. Continue Primaxin and vancomycin. Continue IV Lasix as renal function and blood pressure tolerate. Wean O2 as tolerated. (2) Pneumonia: Code(s): J18.9 - Pneumonia, unspecified organism Status: Acute Assessment and Plan: Was on broad-spectrum antibiotics but changed to Rocephin monotherapy when pneumococcal antigen returned positive. Vancomycin added 12/12/21 due to MRSA in sputum culture. Changed Rocephin to Primaxin on 12/14/21 for climbing white count and fever. CXR showing loculated pleural effusion. Had to wait until patient off Plavix x 5 day. He had thoracentesis on 12/19 with removal of 100mL. Gram stain showing many WBC but no organisms but the 2nd gram stain showing no organisms or white blood cells seen. Cell count not performed but 90% neutrophils. Follow up on culture results (body fluid cx was cancelled so had to reorder). As above. Convert to oral abx if culture are negative (3) Acute coronary syndrome: Code(s): I24.9 - Acute ischemic heart disease, unspecified Status: Acute Assessment and Plan: Acute coronary syndrome with EKG showing ST-elevation in V2 and V3 with no reciprocal changes and Trop to 16 -> 6 consistent with STEMI. Cardiology consulted and appreciate their input. Echo showing EF 20-25% with Grade II diastolic dysfunction. No further chest pain. Heparin gtt was stopped. Currently on ASA, Coreg and statin. NTG available prn. Ischemia evaluation when able. Cardiology was okay to stop Plavix for 5 days for thoracentesis. Resume Plavix? (4) CHF (congestive heart failure): Code(s): I50.9 - Heart failure, unspecified Status: Acute Assessment and Plan: Echo showing EF 20-25% with Grade II diastolic dysfunction. Currently undergoing aggressive diuresis. CXR improving. Continue Coreg, Entresto. (5) Acute hyponatremia: Code(s): E87.1 - Hypo-osmolality and hyponatremia Status: Acute Assessment and Plan: Possibly related to fluid overload and poor renal perfusion from the EF 20%. Shalom <5. 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 Na stable in mid 120 range and is 125 today. Continue NaCl tabs. Appreciate Nephrology consultation. (6) Type 2 diabetes mellitus with hyperglycemia, with long-term current use of insulin: Code(s): E11.65 - Type 2 diabetes mellitus with hyperglycemia; Z79.4 - rodent exterminator (current) use of insulin Status: Acute Assessment and Plan: A1c 11.4. Patient with known insulin-dependent diabetes. Admitted and found to have DKA treated with DKA protocol. DKA has resolved and started on lantus. Continue AccuCheks covering with sliding scale. Hypoglycemia protocol available as needed. nursing educator and dispatch machine runner were consulted. Morning sugar 177 so continue Lantus. Still elevated pre-meal glucose so will advance Novolog at meal times. Continue Empagliflozin. Continue current medical regiment. (7) Acute renal fa
--- NOTE | 2021-12-20 13:44 | PCPTNOTE ---
Patient refused treatment this session. Patient reported I do not feel like it right now.
[2021-12-20 16:29] LABS: Glucose Point of Care 269 mg/dl (65-105)
--- NOTE | 2021-12-20 16:35 | PC.NURSE ---
called pharmacy missing potassium chloride 20 meq need total of 40 meq
[2021-12-20] MEDS: INSULIN ASPART (*BKC) 100 UNITS/ML 8 UNITS SUB-Q (17:23)
[2021-12-20] MEDS: MELATONIN 5 MG TABLET PO (21:32)
[2021-12-20 21:41] LABS: Glucose Point of Care 83 mg/dl (65-105)
[2021-12-20] MEDS: ACETAMINOPHEN 325 MG TABLET 650 MG PO (23:56)
[2021-12-21] VITALS (22 sets, daily range): BP systolic 97–123; BP diastolic 39–58; PULSE 77–90; RESP 16–23; TEMP 36.1–37; O2SAT 92–100
[2021-12-21] MEDS: LEVALBUTEROL NEB 1.25 MG/3 ML 0.63 MG INHALATION ×4 (02:03→19:56)
[2021-12-21] MEDS: IPRATROPIUM BR 0.02% INH SOLN 0.5 MG/2.5 ML VIAL INHALATION ×3 (02:03→15:37)
[2021-12-21] MEDS: SALINE LOCK FLUSH 10 ML IV PUSH ×3 (05:26→21:29)
[2021-12-21 06:02] LABS: Alanine Aminotransferase 95 U/L (6-50); Albumin Level 2.7 g/dL (3.5-5.1); Alkaline Phosphatase 123 U/L (38-126); Anion Gap 7 mmol/L (8-16); Aspartate Amino Transferase 186 U/L (17-59); Basophils Percent Auto 0.4 % (0.2-1.2); Bilirubin,Total 0.7 mg/dL (0.2-1.3); Blood Urea Nitrogen 54 mg/dL (9-20); Calcium 7.3 mg/dL (8.4-10.2); Carbon Dioxide 32 mmol/L (22-30); Chloride 89 mmol/L (98-107); Eosinophils Absolute Auto 0.1 K/mm3 (0-0.3); Eosinophils Percent Auto 1.4 % (0-4.4); Estimated CRCL calculation 35 ml/min; Estimated Glomerular Filt Rate 37; Glucose 156 mg/dL (65-110); Hemoglobin 10.5 g/dL (14.0-18.0); Immature Granulocyte Absolute 0.03 K/mm3 (0.00-0.031); Immature Granulocyte Percent A 0.3 % (0-0.5); Lymphocytes Absolute Auto 1.51 K/mm3 (0.9-3.2); Lymphocytes Percent Auto 15.9 % (18.3-44.2); Magnesium 2.3 mg/dL (1.6-2.3); Mean Corpuscular HGB Conc 33.9 g/dl (32-36); Mean Corpuscular Hemoglobin 28.9 pg (26-34); Mean Corpuscular Volume 85.4 fl (80-100); Mean Platelet Volume 9.9 fl (7.4-10.4); Monocytes Absolute Auto 1.1 K/mm3 (0.1-0.6); Monocytes Percent Auto 11.3 % (2.6-8.5); Neutrophils Absolute Auto 6.7 K/mm3 (1.3-6.7); Neutrophils Percent Auto 70.7 % (45.5-73.1); Platelet Count Result 548 k/mm3 (150-375); Potassium 3.4 mmol/L (3.4-5.0); Red Blood Count 3.63 M/mm3 (4.6-6.20); Red Cell Distribution Width 14.4 % (11.5-14.5); Sodium 128 mmol/L (137-145); White Blood Count 9.5 K/mm3 (4.5-10.0)
[2021-12-21 07:56] LABS: Glucose Point of Care 164 mg/dl (65-105)
[2021-12-21] MEDS: PANTOPRAZOLE SODIUM IV 40 MG VIAL IV PUSH (08:39)
[2021-12-21] MEDS: LOVASTATIN 20 MG TABLET 40 MG PO (08:39)
[2021-12-21] MEDS: EMPAGLIFLOZIN 10 MG TABLET PO (08:40)
[2021-12-21] MEDS: SODIUM CHLORIDE 500 MG TABLET 1500 MG PO ×2 (08:40→17:21)
[2021-12-21] MEDS: ASPIRIN 81 MG ENTERIC TABLET PO (08:41)
[2021-12-21] MEDS: CALCIUM CARBONATE (OSCAL) 500 MG TABLET PO (08:42)
[2021-12-21] MEDS: guaiFENesin 12 HR 600 MG TABCR 1200 MG PO ×2 (08:42→21:29)
[2021-12-21] MEDS: INSULIN GLARGINE (*BKC) 100 UNITS/ML 30 UNITS SUB-Q (08:44)
[2021-12-21] MEDS: INSULIN ASPART (*BKC) 100 UNITS/ML 8 UNITS SUB-Q ×3 (08:45→17:21)
[2021-12-21] MEDS: ENOXAPARIN 40 MG/0.4 ML SYRINGE SUB-Q (11:00)
[2021-12-21 11:43] LABS: Glucose Point of Care 221 mg/dl (65-105)
[2021-12-21] MEDS: INSULIN ASPART (*BKC) 100 UNITS/ML SUB-Q (12:38)
--- NOTE | 2021-12-21 13:00 | P.PNNP_ITS ---
Progress Note: A&P Assessment and Plan (1) Stage 3b chronic kidney disease: Code(s): N18.32 - Chronic kidney disease, stage 3b Status: Chronic Assessment and Plan: * baseline creatinine seems to run ~ 1.4 - 1.7mg/dl * presumably due to hypertension, diabetes, chronic pre-renal azotemia from his cardiomyopathy, and vascular disease * evaluation to date noted: * renal ultrasound is normal * Echo shows EF of only 20-25% * urine sodium is less than 5 * urine protein to creatinine ratio is 290 * urinalysis shows some protein * complements/SACHA/serum immunofixation negative; urine immunofixation pending * creatinine relatively stable in spite of diuresis - consider switch to oral diuretics today/tomorrow given rise in creatinine(?) * follow trend of UOP and repeat labs (2) Hyponatremia: Code(s): E87.1 - Hypo-osmolality and hyponatremia Status: Chronic Assessment and Plan: * has had this issue on/off for that last few years - likely related to his known cardiomyopathy and HCTZ use * however, acutely worse on this hospitalization - probably from pneumonia * evaluation to date: * TSH and cortisol level okay * no history of malignancy * no CHECK CLERK issues (refused brain CT) * continue current therapy of fluid restriction, lasix, and salt tabs * given previous worsening hyponatremia, off metolazone (3) CHF (congestive heart failure): Code(s): I50.9 - Heart failure, unspecified Status: Acute Assessment and Plan: * complicated by chest pain/ACS + underlying cardiomyopathy * Cardiology following * continue aggressive diuresis as tolerated (4) Pneumonia: Code(s): J18.9 - Pneumonia, unspecified organism Status: Acute Assessment and Plan: * as noted by imaging to date * on antibiotics * follow culture data (5) Hypertension: Qualifiers: Hypertension type: essential hypertension Qualified Code(s): I10 - Essential (primary) hypertension Code(s): I10 - Essential (primary) hypertension Status: Chronic Assessment and Plan: * reasonable control at this time * continue to follow trend of hemodynamics (6) Insulin dependent diabetes mellitus: Status: Chronic Assessment and Plan: * follow accuchecks * on Lantus and SSI Will continue to follow. Subjective Date/time seen: 12/21/21 13:00 Difficulty sleeping overnight and noted to have low grade fever overnight; attempting to work with therapy given overall deconditioning during hospitalization; no acute distress voiced. Exam Narrative: General: elderly male in NAD Heart: normal S1 and S2; no rub Lungs: decreased at bases Abdomen: soft, nontender, nondistended, positive bowel sounds Extremities: no cyanosis or clubbing; 1+ edema Skin: warm and dry Objective Data Vital Signs Vital Signs: Vital Signs Temp Pulse Resp BP Pulse Ox 12/21/21 12:00 36.7 C 87 18 104/39 L 97 12/21/21 09:31 83 22 H 12/21/21 09:23 92 12/21/21 09:22 78 22 H 12/21/21 08:40 97 12/21/21 08:00 36.1 C L 80 20 97/58 L 100 12/21/21 05:08 81 20 97 12/21/21 04:00 36.1 C L 88 16 98/50 L 98 12/21/21 02:20 85 23 H 97 12/21/21 02:15 81 20 12/21/21 02:04 77 20 12/21/21 00:56 36.4 C
--- NOTE | 2021-12-21 13:00 | PM.PNNEP ---
Progress Note: A&P Assessment and Plan (1) Stage 3b chronic kidney disease: Code(s): N18.32 - Chronic kidney disease, stage 3b Status: Chronic Assessment and Plan: baseline creatinine seems to run ~ 1.4 - 1.7mg/dl presumably due to hypertension, diabetes, chronic pre-renal azotemia from his cardiomyopathy, and vascular disease evaluation to date noted: renal ultrasound is normal Echo shows EF of only 20-25% urine sodium is less than 5 urine protein to creatinine ratio is 290 urinalysis shows some protein complements/SACHA/serum immunofixation negative; urine immunofixation pending creatinine relatively stable in spite of diuresis - consider switch to oral diuretics today/tomorrow given rise in creatinine(?) follow trend of UOP and repeat labs (2) Hyponatremia: Code(s): E87.1 - Hypo-osmolality and hyponatremia Status: Chronic Assessment and Plan: has had this issue on/off for that last few years - likely related to his known cardiomyopathy and HCTZ use however, acutely worse on this hospitalization - probably from pneumonia evaluation to date: TSH and cortisol level okay no history of malignancy no GRADUATE RECRUITER issues (refused brain CT) continue current therapy of fluid restriction, lasix, and salt tabs given previous worsening hyponatremia, off metolazone (3) CHF (congestive heart failure): Code(s): I50.9 - Heart failure, unspecified Status: Acute Assessment and Plan: complicated by chest pain/ACS + underlying cardiomyopathy Cardiology following continue aggressive diuresis as tolerated (4) Pneumonia: Code(s): J18.9 - Pneumonia, unspecified organism Status: Acute Assessment and Plan: as noted by imaging to date on antibiotics follow culture data (5) Hypertension: Qualifiers: Hypertension type: essential hypertension Qualified Code(s): I10 - Essential (primary) hypertension Code(s): I10 - Essential (primary) hypertension Status: Chronic Assessment and Plan: reasonable control at this time continue to follow trend of hemodynamics (6) Insulin dependent diabetes mellitus: Status: Chronic Assessment and Plan: follow accuchecks on Lantus and SSI Will continue to follow. Subjective Date/time seen: 12/21/21 13:00 Difficulty sleeping overnight and noted to have low grade fever overnight; attempting to work with therapy given overall deconditioning during hospitalization; no acute distress voiced. Exam Narrative: General: elderly male in NAD Heart: normal S1 and S2; no rub Lungs: decreased at bases Abdomen: soft, nontender, nondistended, positive bowel sounds Extremities: no cyanosis or clubbing; 1+ edema Skin: warm and dry Objective Data Vital Signs Vital Signs: Vital Signs Temp Pulse Resp BP Pulse Ox 12/21/21 12:00 36.7 C 87 18 104/39 L 97 12/21/21 09:31 83 22 H 12/21/21 09:23 92 12/21/21 09:22 78 22 H 12/21/21 08:40 97 12/21/21 08:00 36.1 C L 80 20 97/58 L 100 12/21/21 05:08 81 20 97 12/21/21 04:00 36.1 C L 88 16 98/50 L 98 12/21/21 02:20 85 23 H 97 12/21/21 02:15 81 20 12/21/21 02:04 77 20 12/21/21 00:56 36.4 C 12/21/21 00:16 83 23 H 97 12/20/21 23:56 38.0 C H 12/20/21 23:49 37.5 C 82 16 110/45 L 95 12/20/21 21:25 83 12/20/21 20:33 95 12/20/21 20:32 71 20 12/20/21 20:21 68 20 12/20/21 20:00 37.5 C 80 16 110/45 L 95 12/20/21 16:00 36.7 C 65 19 108/52 L 95 12/20/21 15:10 69 20 12/20/21 15:01 70 22 H Intake/Output Intake/Output: Intake & Output 12/18/21 12/19/21 12/20/21 12/21/21 23:59 23:59 23:59 23:59 Intake Total 2393 760 2957 680 Output Total 3600 3650 3750 1000 [facility]1207 -[phone] -[phone] -320 Meds/Results Medications: Active Medications Generic Name Dose Route Start Last Admin
--- NOTE | 2021-12-21 16:33 | PM.IMPN ---
Progress Note: A&P Assessment and Plan (1) Acute respiratory failure: Code(s): J96.00 - Acute respiratory failure, unspecified whether with hypoxia or hypercapnia Status: Acute Assessment and Plan: On admission, acute respiratory failure related to pneumonia and ACS. Patient was started on broad-spectrum IV antibiotics with antifungal treatment as well. Legionella Ag negative, pneumococcal Ag positive. Blood cultures negative. Coccidiomycosis titers negative. Antifungal treatment stopped and abx adjusted to Rocephin monotherapy. WBC dropped to 16K. Sputum result returned on 12/12/21 growing Staph aureus so vancomycin started. Sensitivity shows MRSA. WBC increased to 23.6K and was having fevers. Chest x-ray showing worsening infiltrates and moderate right effusion. Primaxin added 12/14/21. Started on Lasix IV as well. Having good UOP (2.9L yesterday) with negative cumulative fluid balance. He was re-cultured on 12/14/21; UCx negative and BCx NGTD. COVID and Influenza negative. LE dopplers negative for DVT. Fevers resolved and WBC normal but low grade temp last nignt - atelectasis?. Continue Primaxin and vancomycin. Cr up to 1.8 so will hold IV Lasix. Wean O2 as tolerated. Hold BiPAP and check apnea link on 2L. (2) Pneumonia: Code(s): J18.9 - Pneumonia, unspecified organism Status: Acute Assessment and Plan: Was on broad-spectrum antibiotics but changed to Rocephin monotherapy when pneumococcal antigen returned positive. Vancomycin added 12/12/21 due to MRSA in sputum culture. Changed Rocephin to Primaxin on 12/14/21 for climbing white count and fever. CXR showing loculated pleural effusion. Had to wait until patient off Plavix x 5 day. He had thoracentesis on 12/19 with removal of 100mL. Gram stain showing many WBC but no organisms but the 2nd gram stain showing no organisms or white blood cells seen. Culture showing few WBC. Cell count not performed but 90% neutrophils. Follow up on culture results. As above. Convert to oral abx if culture are negative. Plan to stop Vanco after today (Day 10). (3) Acute coronary syndrome: Code(s): I24.9 - Acute ischemic heart disease, unspecified Status: Acute Assessment and Plan: Acute coronary syndrome with EKG showing ST-elevation in V2 and V3 with no reciprocal changes and Trop to 16 -> 6 consistent with STEMI. Cardiology consulted and appreciate their input. Echo showing EF 20-25% with Grade II diastolic dysfunction. No further chest pain. Heparin gtt was stopped. Currently on ASA, Coreg and statin. NTG available prn. Ischemia evaluation when able. Cardiology was okay to stop Plavix for 5 days for thoracentesis. Resume Plavix (4) CHF (congestive heart failure): Code(s): I50.9 - Heart failure, unspecified Status: Acute Assessment and Plan: Echo showing EF 20-25% with Grade II diastolic dysfunction. Currently undergoing aggressive diuresis. CXR improving. Continue Coreg, Entresto. (5) Acute hyponatremia: Code(s): E87.1 - Hypo-osmolality and hyponatremia Status: Acute Assessment and Plan: Possibly related to fluid overload and poor renal perfusion from the EF 20%. Shalom <5. 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 Na stable in mid 120 range and is 128 today. Continue NaCl tabs. Appreciate Nephrology consultation. 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 Patient with known insulin-dependent diabetes. Admitted and found to have DKA treated with DKA protocol. DKA has resolved and started on lantus. Continue AccuCheks covering with sliding scale. Hypoglycemia protocol available as needed. special education paraeducator and coat cutter were consulted. Morning sugar 156 so continue Lantus. Pre-meal glucose is better so continue mealtime No
[2021-12-21 16:39] LABS: Glucose Point of Care 84 mg/dl (65-105)
[2021-12-21 19:51] LABS: Glucose Pleural Fluid 79 mg/dL; LDH Pleural Fluid 2220 U/L; Total Protein Pleural Fluid 3.6 g/dL
[2021-12-21] MEDS: MELATONIN 5 MG TABLET PO (21:22)
[2021-12-21] MEDS: carvediloL 3.125 MG TABLET PO (21:29)
[2021-12-21] MEDS: FAMOTIDINE 20 MG TABLET PO (21:29)
[2021-12-21] MEDS: SACUBITRIL/VALSARTAN 24-26 MG TABLET 1 TAB PO (21:29)
[2021-12-21 21:53] LABS: Glucose Point of Care 181 mg/dl (65-105)
[2021-12-22] VITALS (15 sets, daily range): BP systolic 115–123; BP diastolic 45–54; PULSE 74–82; RESP 14–20; TEMP 36.4–36.6; O2SAT 91–96
[2021-12-22 07:16] LABS: Basophils Absolute Auto 0.1 K/mm3 (0.0-0.1); Basophils Percent Auto 0.8 % (0.2-1.2); Eosinophils Absolute Auto 0.1 K/mm3 (0-0.3); Eosinophils Percent Auto 1.8 % (0-4.4); Hematocrit 29.9 % (42.0-52.0); Hemoglobin 9.8 g/dL (14.0-18.0); Immature Granulocyte Absolute 0.03 K/mm3 (0.00-0.031); Immature Granulocyte Percent A 0.5 % (0-0.5); Lymphocytes Absolute Auto 1.03 K/mm3 (0.9-3.2); Lymphocytes Percent Auto 15.8 % (18.3-44.2); Mean Corpuscular HGB Conc 32.8 g/dl (32-36); Mean Corpuscular Hemoglobin 28.3 pg (26-34); Mean Corpuscular Volume 86.4 fl (80-100); Mean Platelet Volume 9.6 fl (7.4-10.4); Monocytes Percent Auto 14.5 % (2.6-8.5); Neutrophils Absolute Auto 4.4 K/mm3 (1.3-6.7); Neutrophils Percent Auto 66.6 % (45.5-73.1); Platelet Count Result 502 k/mm3 (150-375); Red Blood Count 3.46 M/mm3 (4.6-6.20); Red Cell Distribution Width 14.4 % (11.5-14.5); White Blood Count 6.5 K/mm3 (4.5-10.0)
[2021-12-22 07:48] LABS: Alanine Aminotransferase 67 U/L (6-50); Albumin Level 2.5 g/dL (3.5-5.1); Alkaline Phosphatase 108 U/L (38-126); Anion Gap 3 mmol/L (8-16); Aspartate Amino Transferase 99 U/L (17-59); Bilirubin,Total 0.4 mg/dL (0.2-1.3); Blood Urea Nitrogen 40 mg/dL (9-20); Calcium 7.2 mg/dL (8.4-10.2); Carbon Dioxide 34 mmol/L (22-30); Chloride 92 mmol/L (98-107); Estimated CRCL calculation 42 ml/min; Estimated Glomerular Filt Rate 46; Glucose 121 mg/dL (65-110); Magnesium 2.5 mg/dL (1.6-2.3); Phosphorus 3.8 mg/dL (2.5-4.5); Potassium 3.2 mmol/L (3.4-5.0); Sodium 129 mmol/L (137-145)
[2021-12-22] MEDS: SALINE LOCK FLUSH 10 ML IV PUSH ×3 (07:56→23:56)
[2021-12-22 08:27] LABS: Glucose Point of Care 129 mg/dl (65-105)
[2021-12-22] MEDS: INSULIN ASPART (*BKC) 100 UNITS/ML 8 UNITS SUB-Q ×2 (08:33→12:11)
[2021-12-22] MEDS: CALCIUM CARBONATE (OSCAL) 500 MG TABLET PO (08:33)
[2021-12-22] MEDS: guaiFENesin 12 HR 600 MG TABCR 1200 MG PO ×2 (08:34→21:15)
[2021-12-22] MEDS: SODIUM CHLORIDE 500 MG TABLET 1500 MG PO ×2 (08:34→17:25)
[2021-12-22] MEDS: FAMOTIDINE 20 MG TABLET PO ×2 (08:34→21:15)
[2021-12-22] MEDS: ASPIRIN 81 MG ENTERIC TABLET PO (08:34)
[2021-12-22] MEDS: LOVASTATIN 20 MG TABLET 40 MG PO (08:34)
[2021-12-22] MEDS: EMPAGLIFLOZIN 10 MG TABLET PO (08:35)
[2021-12-22] MEDS: ENOXAPARIN 40 MG/0.4 ML SYRINGE SUB-Q (08:35)
[2021-12-22] MEDS: CLOPIDOGREL BISULFATE 75 MG TABLET PO (08:35)
[2021-12-22] MEDS: INSULIN GLARGINE (*BKC) 100 UNITS/ML 30 UNITS SUB-Q (08:39)
[2021-12-22] MEDS: POTASSIUM CHLORIDE 20 MEQ PACKET (FOR LIQUID) 40 MEQ PO (09:00)
[2021-12-22] MEDS: SACUBITRIL/VALSARTAN 24-26 MG TABLET 1 TAB PO ×2 (09:01→21:15)
[2021-12-22] MEDS: carvediloL 3.125 MG TABLET PO ×2 (09:01→21:16)
[2021-12-22] MEDS: LEVALBUTEROL NEB 1.25 MG/3 ML 0.63 MG INHALATION ×2 (09:08→19:54)
--- NOTE | 2021-12-22 09:25 | PM.IMPN ---
Progress Note: A&P Assessment and Plan (1) Acute respiratory failure: Code(s): J96.00 - Acute respiratory failure, unspecified whether with hypoxia or hypercapnia Status: Acute Assessment and Plan: On admission, acute respiratory failure related to pneumonia and ACS. Patient was started on broad-spectrum IV antibiotics with antifungal treatment as well. Legionella Ag negative, pneumococcal Ag positive. Blood cultures negative. Coccidiomycosis titers negative. Speech therapy bedside evaluation was okay 12/06. Antifungal treatment stopped and abx adjusted to Rocephin monotherapy. WBC dropped to 16K. Sputum result returned on 12/12/21 growing Staph aureus so vancomycin started. Sensitivity shows MRSA. WBC increased to 23.6K and was having fevers. Chest x-ray showing worsening infiltrates and moderate right effusion. Primaxin added 12/14/21. Started on Lasix IV as well with good UOP with negative cumulative fluid balance. He was re-cultured on 12/14/21; UCx and BCx negative. COVID and Influenza negative. LE dopplers negative for DVT. Fevers resolved and WBC normal. Low grade temp the other night felt related to atelectasis. Continue Primaxin. She completed vancomycin. Cr better at 1.5. We held BiPAP and Apnea link on 2L showing AHI 2.1 and RI 5.9 without significant hypoxia. Wean O2 as tolerated. Hold BiPAP for now and monitor. Add CPT. (2) Pneumonia: Code(s): J18.9 - Pneumonia, unspecified organism Status: Acute Assessment and Plan: Was on broad-spectrum antibiotics on admission but changed to Rocephin monotherapy when pneumococcal antigen returned positive. Vancomycin added 12/12/21 due to MRSA in sputum culture. Changed Rocephin to Primaxin on 12/14/21 for climbing white count and fever. CXR showing loculated pleural effusion. Had to wait until patient off Plavix x 5 day. He had thoracentesis on 12/19 with removal of 100mL. Gram stain showing many WBC but no organisms but the 2nd gram stain showing no organisms or white blood cells seen. Culture showing few WBC but NGTD. Cell count not performed but 90% neutrophils. Labs have returned consistent with exudative pleural effusion process. He has loculated effusion and suspect parapneumonic. As above. Stop Vanco (Day 10). Continue Primaxin with plans to stop tomorrow. (3) Acute coronary syndrome: Code(s): I24.9 - Acute ischemic heart disease, unspecified Status: Acute Assessment and Plan: Acute coronary syndrome with EKG showing ST-elevation in V2 and V3 with no reciprocal changes and Trop to 16 -> 6 consistent with STEMI. Cardiology consulted and appreciate their input. Echo showing EF 20-25% with Grade II diastolic dysfunction. No further chest pain. Heparin gtt was stopped. Currently on ASA, Coreg and statin. NTG available prn. Ischemia evaluation when able. Cardiology was okay to stop Plavix for 5 days for thoracentesis. Resume Plavix. Stop tele. (4) CHF (congestive heart failure): Code(s): I50.9 - Heart failure, unspecified Status: Acute Assessment and Plan: Echo showing EF 20-25% with Grade II diastolic dysfunction. He underwent aggressive diuresis with improvement in CXR. Lasix held due to increasing Cr. Continue Coreg, Entresto. Resume Lasix at noon time given his soft BP. Okay to remove Solis. (5) Acute hyponatremia: Code(s): E87.1 - Hypo-osmolality and hyponatremia Status: Acute Assessment and Plan: Possibly related to fluid overload and poor renal perfusion from the EF 20%. Shalom <5. 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 Na better at 129 today. Remains on fluid restriction. Continue NaCl tabs. Appreciate Nephrology consultation. (6) Type 2 diabetes mellitus with hyperglycemia, with long-term current use of insulin: Code(s): E11.65 - Type 2 diabetes mellitus with hyperglycemia; Z79.4 - retirement (current) use of insulin Status: Acute Assessment and Plan: A1c 11.4. Patient with known insulin
[2021-12-22] MEDS: FUROSEMIDE 40 MG TABLET PO (11:57)
[2021-12-22 12:01] LABS: Glucose Point of Care 170 mg/dl (65-105)
--- NOTE | 2021-12-22 12:59 | PM.PNNEP ---
Progress Note: A&P Assessment and Plan (1) Stage 3b chronic kidney disease: Code(s): N18.32 - Chronic kidney disease, stage 3b Status: Chronic Assessment and Plan: baseline creatinine seems to run ~ 1.4 - 1.7mg/dl presumably due to hypertension, diabetes, chronic pre-renal azotemia from his cardiomyopathy, and vascular disease evaluation to date noted: renal ultrasound is normal Echo shows EF of only 20-25% urine sodium is less than 5 urine protein to creatinine ratio is 290 urinalysis shows some protein complements/SACHA/serum immunofixation negative; urine immunofixation pending creatinine up a bit yesterday but off IV diuretics at this time; oral diuretic to resume follow trend of UOP and repeat labs (2) Hyponatremia: Code(s): E87.1 - Hypo-osmolality and hyponatremia Status: Chronic Assessment and Plan: has had this issue on/off for that last few years - likely related to his known cardiomyopathy and HCTZ use however, acutely worse on this hospitalization - probably from pneumonia evaluation to date: TSH and cortisol level okay no history of malignancy no SHOVEL OPERATOR issues (refused brain CT) continue current therapy of fluid restriction, lasix, and salt tabs may consider easing up on fluid restriction if sodium continues to improve given previous worsening hyponatremia, off metolazone (3) CHF (congestive heart failure): Code(s): I50.9 - Heart failure, unspecified Status: Acute Assessment and Plan: complicated by chest pain/ACS + underlying cardiomyopathy Cardiology following diuretics on hold - likely resume oral diuretics as tolerated (4) Pneumonia: Code(s): J18.9 - Pneumonia, unspecified organism Status: Acute Assessment and Plan: as noted by imaging to date on antibiotics follow culture data (5) Hypertension: Qualifiers: Hypertension type: essential hypertension Qualified Code(s): I10 - Essential (primary) hypertension Code(s): I10 - Essential (primary) hypertension Status: Chronic Assessment and Plan: reasonable control at this time continue to follow trend of hemodynamics (6) Insulin dependent diabetes mellitus: Status: Chronic Assessment and Plan: follow accuchecks on Lantus and SSI Will continue to follow. Subjective Date/time seen: 12/22/21 12:59 Breathing/respiratory status continues to make slow and steady improvement; still has a productive cough but seems to be getting better; reports that he did have a better night of sleep last night; major complaint is that of fluid restriction. Exam Narrative: General: elderly male in NAD Heart: normal S1 and S2; no rub Lungs: decreased at bases Abdomen: soft, nontender, nondistended, positive bowel sounds Extremities: no cyanosis or clubbing; 1+ edema Skin: warm and dry Objective Data Vital Signs Vital Signs: Vital Signs Temp Pulse Resp BP Pulse Ox 12/22/21 12:00 36.6 C 78 20 123/54 L 96 12/22/21 09:16 82 20 12/22/21 09:08 80 20 12/22/21 09:01 78 12/22/21 08:30 115/49 L 95 12/22/21 08:00 79 12/22/21 07:43 36.6 C 76 20 121/51 L 96 12/22/21 04:00 75 12/22/21 00:00 74 12/21/21 22:28 93 12/21/21 21:29 81 12/21/21 20:06 81 20 93 12/21/21 20:00 36.6 C 81 20 123/41 L 93 12/21/21 19:58 83 20 Intake/Output Intake/Output: Intake & Output 12/19/21 12/20/21 12/21/21 12/22/21 23:59 23:59 23:59 23:59 Intake Total 760 2957 1360 617 Output Total 5700 3750 1800 Balance -4940 -793 -440 617 Meds/Results Medications: Active Medications Generic Name Dose Route Start Last Admin Trade Name Carlsoq PRN Reason Stop Dose Admin Acetaminophen 650 mg 12/05/21 00:07 12/20/21 23:56 Acetaminophen 325 Mg Tablet PO 650 mg Q4H PRN Administration Mild Pain (1-3) or Fever Aspirin 81 mg
--- NOTE | 2021-12-22 12:59 | P.PNNP_ITS ---
Progress Note: A&P Assessment and Plan (1) Stage 3b chronic kidney disease: Code(s): N18.32 - Chronic kidney disease, stage 3b Status: Chronic Assessment and Plan: * baseline creatinine seems to run ~ 1.4 - 1.7mg/dl * presumably due to hypertension, diabetes, chronic pre-renal azotemia from his cardiomyopathy, and vascular disease * evaluation to date noted: * renal ultrasound is normal * Echo shows EF of only 20-25% * urine sodium is less than 5 * urine protein to creatinine ratio is 290 * urinalysis shows some protein * complements/SACHA/serum immunofixation negative; urine immunofixation pending * creatinine up a bit yesterday but off IV diuretics at this time; oral diuretic to resume * follow trend of UOP and repeat labs (2) Hyponatremia: Code(s): E87.1 - Hypo-osmolality and hyponatremia Status: Chronic Assessment and Plan: * has had this issue on/off for that last few years - likely related to his known cardiomyopathy and HCTZ use * however, acutely worse on this hospitalization - probably from pneumonia * evaluation to date: * TSH and cortisol level okay * no history of malignancy * no MEDICAL UNIT SECRETARY issues (refused brain CT) * continue current therapy of fluid restriction, lasix, and salt tabs * may consider easing up on fluid restriction if sodium continues to improve * given previous worsening hyponatremia, off metolazone (3) CHF (congestive heart failure): Code(s): I50.9 - Heart failure, unspecified Status: Acute Assessment and Plan: * complicated by chest pain/ACS + underlying cardiomyopathy * Cardiology following * diuretics on hold - likely resume oral diuretics as tolerated (4) Pneumonia: Code(s): J18.9 - Pneumonia, unspecified organism Status: Acute Assessment and Plan: * as noted by imaging to date * on antibiotics * follow culture data (5) Hypertension: Qualifiers: Hypertension type: essential hypertension Qualified Code(s): I10 - Essential (primary) hypertension Code(s): I10 - Essential (primary) hypertension Status: Chronic Assessment and Plan: * reasonable control at this time * continue to follow trend of hemodynamics (6) Insulin dependent diabetes mellitus: Status: Chronic Assessment and Plan: * follow accuchecks * on Lantus and SSI Will continue to follow. Subjective Date/time seen: 12/22/21 12:59 Breathing/respiratory status continues to make slow and steady improvement; still has a productive cough but seems to be getting better; reports that he did have a better night of sleep last night; major complaint is that of fluid restriction. Exam Narrative: General: elderly male in NAD Heart: normal S1 and S2; no rub Lungs: decreased at bases Abdomen: soft, nontender, nondistended, positive bowel sounds Extremities: no cyanosis or clubbing; 1+ edema Skin: warm and dry Objective Data Vital Signs Vital Signs: Vital Signs Temp Pulse Resp BP Pulse Ox 12/22/21 12:00 36.6 C 78 20 123/54 L 96 12/22/21 09:16 82 20 12/22/21 09:08 80 20 12/22/21 09:01 78 12/22/21 08:30 115/49 L 95 12/22/21 08:00 79 12/22/21 07:43 36.6 C 76 20 121/51 L 96 12/22/21 04:00 75 12/22/21 00:00 74 12/21/21 22:28 93
[2021-12-22 16:21] LABS: Glucose Point of Care 52 mg/dl (65-105)
[2021-12-22 16:47] LABS: Glucose Point of Care 109 mg/dl (65-105)
[2021-12-22] MEDS: MELATONIN 5 MG TABLET PO (21:15)
[2021-12-22 21:39] LABS: Glucose Point of Care 156 mg/dl (65-105)
[2021-12-22 22:57] LABS: Albumin Pleural Fluid 1.1 g/dL
[2021-12-23] VITALS (11 sets, daily range): BP systolic 125–143; BP diastolic 60–72; PULSE 70–87; RESP 16–18; TEMP 36.2–36.8; O2SAT 91–95
[2021-12-23] MEDS: SALINE LOCK FLUSH 10 ML IV PUSH ×3 (05:25→22:00)
[2021-12-23 06:46] LABS: Basophils Absolute Auto 0.1 K/mm3 (0.0-0.1); Basophils Percent Auto 1.1 % (0.2-1.2); Eosinophils Absolute Auto 0.1 K/mm3 (0-0.3); Eosinophils Percent Auto 1.1 % (0-4.4); Hematocrit 30.7 % (42.0-52.0); Hemoglobin 10.1 g/dL (14.0-18.0); Immature Granulocyte Absolute 0.03 K/mm3 (0.00-0.031); Immature Granulocyte Percent A 0.5 % (0-0.5); Lymphocytes Percent Auto 17.1 % (18.3-44.2); Mean Corpuscular HGB Conc 32.9 g/dl (32-36); Mean Corpuscular Hemoglobin 28.5 pg (26-34); Mean Corpuscular Volume 86.7 fl (80-100); Mean Platelet Volume 9.4 fl (7.4-10.4); Monocytes Percent Auto 15.7 % (2.6-8.5); Neutrophils Absolute Auto 4.2 K/mm3 (1.3-6.7); Neutrophils Percent Auto 64.5 % (45.5-73.1); Platelet Count Result 544 k/mm3 (150-375); Red Blood Count 3.54 M/mm3 (4.6-6.20); Red Cell Distribution Width 14.1 % (11.5-14.5); White Blood Count 6.4 K/mm3 (4.5-10.0)
[2021-12-23 06:56] LABS: Alanine Aminotransferase 61 U/L (6-50); Albumin Level 2.5 g/dL (3.5-5.1); Alkaline Phosphatase 97 U/L (38-126); Anion Gap 3 mmol/L (8-16); Aspartate Amino Transferase 98 U/L (17-59); Bilirubin,Total 0.4 mg/dL (0.2-1.3); Blood Urea Nitrogen 33 mg/dL (9-20); Carbon Dioxide 32 mmol/L (22-30); Chloride 94 mmol/L (98-107); Estimated CRCL calculation 48 ml/min; Estimated Glomerular Filt Rate 54; Glucose 97 mg/dL (65-110); Magnesium 2.5 mg/dL (1.6-2.3); Potassium 3.4 mmol/L (3.4-5.0); Sodium 129 mmol/L (137-145)
[2021-12-23 08:02] LABS: Glucose Point of Care 101 mg/dl (65-105)
[2021-12-23] MEDS: LEVALBUTEROL NEB 1.25 MG/3 ML 0.63 MG INHALATION ×2 (08:25→20:38)
[2021-12-23] MEDS: SODIUM CHLORIDE 500 MG TABLET 1500 MG PO (10:03)
[2021-12-23] MEDS: EMPAGLIFLOZIN 10 MG TABLET PO (10:03)
[2021-12-23] MEDS: ENOXAPARIN 40 MG/0.4 ML SYRINGE SUB-Q (10:03)
[2021-12-23] MEDS: CLOPIDOGREL BISULFATE 75 MG TABLET PO (10:03)
[2021-12-23] MEDS: ASPIRIN 81 MG ENTERIC TABLET PO (10:03)
[2021-12-23] MEDS: carvediloL 3.125 MG TABLET PO ×2 (10:03→21:26)
[2021-12-23] MEDS: SACUBITRIL/VALSARTAN 24-26 MG TABLET 1 TAB PO ×2 (10:04→21:26)
[2021-12-23] MEDS: guaiFENesin 12 HR 600 MG TABCR 1200 MG PO ×2 (10:04→21:26)
[2021-12-23] MEDS: LOVASTATIN 20 MG TABLET 40 MG PO (10:05)
[2021-12-23] MEDS: FAMOTIDINE 20 MG TABLET PO ×2 (10:05→21:26)
[2021-12-23] MEDS: CALCIUM CARBONATE (OSCAL) 500 MG TABLET PO (10:08)
--- NOTE | 2021-12-23 11:27 | P.PNNP_ITS ---
Progress Note: A&P Assessment and Plan (1) Stage 3b chronic kidney disease: Code(s): N18.32 - Chronic kidney disease, stage 3b Status: Chronic Assessment and Plan: * baseline creatinine seems to run ~ 1.4 - 1.7mg/dl * presumably due to hypertension, diabetes, chronic pre-renal azotemia from his cardiomyopathy, and vascular disease * evaluation to date noted: * renal ultrasound is normal * Echo shows EF of only 20-25% * urine sodium is less than 5 * urine protein to creatinine ratio is 290 * urinalysis shows some protein * complements/SACHA/serum immunofixation negative; urine immunofixation pending * follow trend of UOP and repeat labs (2) Hyponatremia: Code(s): E87.1 - Hypo-osmolality and hyponatremia Status: Chronic Assessment and Plan: * has had this issue on/off for that last few years - likely related to his known cardiomyopathy and HCTZ use * however, acutely worse on this hospitalization - probably from pneumonia * evaluation to date: * TSH and cortisol level okay * no history of malignancy * no SCRUFF WORKER issues (refused brain CT) * continue current therapy of fluid restriction, lasix, and salt tabs * may consider easing up on fluid restriction if sodium continues to improve * given previous worsening hyponatremia, off metolazone (3) CHF (congestive heart failure): Code(s): I50.9 - Heart failure, unspecified Status: Acute Assessment and Plan: * complicated by chest pain/ACS + underlying cardiomyopathy * Cardiology following * diuretics on hold - likely resume oral diuretics as tolerated (4) Pneumonia: Code(s): J18.9 - Pneumonia, unspecified organism Status: Acute Assessment and Plan: * as noted by imaging to date * on antibiotics * follow culture data (5) Hypertension: Qualifiers: Hypertension type: essential hypertension Qualified Code(s): I10 - Essential (primary) hypertension Code(s): I10 - Essential (primary) hypertension Status: Chronic Assessment and Plan: * reasonable control at this time * continue to follow trend of hemodynamics (6) Insulin dependent diabetes mellitus: Status: Chronic Assessment and Plan: * follow accuchecks * on Lantus and SSI Will continue to follow. Subjective Date/time seen: 12/23/21 11:27 No apparent distress voiced at the time of my visit; respiratory status/breathing seems relatively stable if not better; diminished appetite noted; seems a bit down by this prolonged hospitalization and slow progress to recovery; no apparent issues/events overnight. Exam Narrative: General: elderly male in NAD Heart: normal S1 and S2; no rub Lungs: decreased at bases Abdomen: soft, nontender, nondistended, positive bowel sounds Extremities: no cyanosis or clubbing; 1+ edema Skin: warm and intact Objective Data Vital Signs Vital Signs: Vital Signs Temp Pulse Resp BP Pulse Ox 12/23/21 08:28 73 18 12/23/21 08:27 93 12/23/21 08:20 70 18 12/23/21 06:00 36.7 C 81 16 140/64 94 12/22/21 22:00 36.4 C 80 14 120/45 L 96 12/22/21 21:16 74 12/22/21 20:08 76 18 12/22/21 20:00 80 14 96 12/22/21 19:55 74 18 91 12/22/21 16:00 36.4 C 76 20 123/54 L 96 12/22/21 12:00 36.6 C 78 20 123/54 L 96
--- NOTE | 2021-12-23 11:27 | PM.PNNEP ---
Progress Note: A&P Assessment and Plan (1) Stage 3b chronic kidney disease: Code(s): N18.32 - Chronic kidney disease, stage 3b Status: Chronic Assessment and Plan: baseline creatinine seems to run ~ 1.4 - 1.7mg/dl presumably due to hypertension, diabetes, chronic pre-renal azotemia from his cardiomyopathy, and vascular disease evaluation to date noted: renal ultrasound is normal Echo shows EF of only 20-25% urine sodium is less than 5 urine protein to creatinine ratio is 290 urinalysis shows some protein complements/SACHA/serum immunofixation negative; urine immunofixation pending follow trend of UOP and repeat labs (2) Hyponatremia: Code(s): E87.1 - Hypo-osmolality and hyponatremia Status: Chronic Assessment and Plan: has had this issue on/off for that last few years - likely related to his known cardiomyopathy and HCTZ use however, acutely worse on this hospitalization - probably from pneumonia evaluation to date: TSH and cortisol level okay no history of malignancy no 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 (refused brain CT) continue current therapy of fluid restriction, lasix, and salt tabs may consider easing up on fluid restriction if sodium continues to improve given previous worsening hyponatremia, off metolazone (3) CHF (congestive heart failure): Code(s): I50.9 - Heart failure, unspecified Status: Acute Assessment and Plan: complicated by chest pain/ACS + underlying cardiomyopathy Cardiology following diuretics on hold - likely resume oral diuretics as tolerated (4) Pneumonia: Code(s): J18.9 - Pneumonia, unspecified organism Status: Acute Assessment and Plan: as noted by imaging to date on antibiotics follow culture data (5) Hypertension: Qualifiers: Hypertension type: essential hypertension Qualified Code(s): I10 - Essential (primary) hypertension Code(s): I10 - Essential (primary) hypertension Status: Chronic Assessment and Plan: reasonable control at this time continue to follow trend of hemodynamics (6) Insulin dependent diabetes mellitus: Status: Chronic Assessment and Plan: follow accuchecks on Lantus and SSI Will continue to follow. Subjective Date/time seen: 12/23/21 11:27 No apparent distress voiced at the time of my visit; respiratory status/breathing seems relatively stable if not better; diminished appetite noted; seems a bit down by this prolonged hospitalization and slow progress to recovery; no apparent issues/events overnight. Exam Narrative: General: elderly male in NAD Heart: normal S1 and S2; no rub Lungs: decreased at bases Abdomen: soft, nontender, nondistended, positive bowel sounds Extremities: no cyanosis or clubbing; 1+ edema Skin: warm and intact Objective Data Vital Signs Vital Signs: Vital Signs Temp Pulse Resp BP Pulse Ox 12/23/21 08:28 73 18 12/23/21 08:27 93 12/23/21 08:20 70 18 12/23/21 06:00 36.7 C 81 16 140/64 94 12/22/21 22:00 36.4 C 80 14 120/45 L 96 12/22/21 21:16 74 12/22/21 20:08 76 18 12/22/21 20:00 80 14 96 12/22/21 19:55 74 18 91 12/22/21 16:00 36.4 C 76 20 123/54 L 96 12/22/21 12:00 36.6 C 78 20 123/54 L 96 Intake/Output Intake/Output: Intake & Output 12/20/21 12/21/21 12/22/21 12/23/21 23:59 23:59 23:59 23:59 Intake Total 2957 1360 1299 937 Output Total 3750 1800 1925 950 Balance -793 -440 -626 -13 Meds/Results Medications: Active Medications Generic Name Dose Route Start Last Admin Trade Name Freq PRN Reason Stop Dose Admin Acetaminophen 650 mg 12/05/21 00:07 12/20/21 23:56 Acetaminophen 325 Mg Tablet PO 650 mg Q4H PRN Administration Mild Pain (1-3) or Fever Aspirin 81 mg 12/05/21 09:00 12/23/21 10:03 Aspirin 81 Mg Enteric Tablet PO 81 mg QAM KAYLI Administration Calcium Carbon
--- NOTE | 2021-12-23 11:31 | PCNFU ---
Nutrition Follow-Up Complete: Inadequate Oral Intake as related to Pneumonia as evidenced by poor po intake reported. Goal:Adequate Intake of at least 75% of meals/supplements Pt is currently meeting goal. Continue with same goal at this time Pt current nutrition is Diabetic consistent carb with glucerna shakes BID. Nutrition recommendation: Continue with current plan of care. Last recorded weight is 83.6 kg - noted a 8kg loss x 1 week, pt is on lasix therapy and a 1000ml Fluid restriction. Bowel Motility:+BM 12/20 Labs Reviewed:NA:129, BUN:33 Hgb:10.1 HCT:30.7, gluc:170,156,109 - WNL Meds Noted:lasix, insulin, plavix Skin: no pressure areas Additional Notes: Pt continues on a diabetic consistent carb diet. Intake is adequate at 75-100% most all meals. Glucerna shakes BID in place, consuming 100% for an additional 220kcals, and 10g PRO per shake. Blood sugars WNL. Fluid restriction continues. Monitor intake, wt, labs, skin. RD will follow up every 5 days.
[2021-12-23 11:52] LABS: Glucose Point of Care 199 mg/dl (65-105)
--- NOTE | 2021-12-23 11:52 | PCPTNOTE ---
Patient refused treatment this session. Patient refused to participate with PT and get up to chair, educated patient on the importance of therapy and getting up to chair. Patient continued to refuse and stated I just don't want to.
[2021-12-23] MEDS: FUROSEMIDE 40 MG TABLET PO (13:11)
--- NOTE | 2021-12-23 14:18 | PCOTNOTE ---
Attempted to see patient this pm, however patient refused stating, It's not a good day. Explained to patient, therapy would continue with plan of care tomorrow and patient replied keeping eyes closed stating, Please do.
--- NOTE | 2021-12-23 14:42 | PM.IMPN ---
Progress Note: A&P Assessment and Plan (1) Acute respiratory failure: Code(s): J96.00 - Acute respiratory failure, unspecified whether with hypoxia or hypercapnia Status: Acute Assessment and Plan: On admission, acute respiratory failure related to pneumonia and ACS. Patient was started on broad-spectrum IV antibiotics with antifungal treatment as well. Legionella Ag negative, pneumococcal Ag positive. Blood cultures negative. Coccidiomycosis titers negative. Speech therapy bedside evaluation was okay 12/06. Antifungal treatment stopped and abx adjusted to Rocephin monotherapy. WBC dropped to 16K. Sputum result returned on 12/12/21 growing Staph aureus so vancomycin started. Sensitivity shows MRSA. WBC increased to 23.6K and was having fevers. Chest x-ray showing worsening infiltrates and moderate right effusion. Primaxin added 12/14/21. Started on Lasix IV as well with good UOP. He was re-cultured on 12/14/21; UCx and BCx negative. COVID and Influenza negative. LE dopplers negative for DVT. Fevers resolved and WBC normal. He completed vancomycin and Primaxin x 10 days. We held BiPAP and Apnea link on 2L showing AHI 2.1 and RI 5.9 without significant hypoxia. Continue to hold BiPAP. Wean O2 as tolerated. He has depressed mood with this situational depression. Encouraged him to be out of bed as much as possible. He voices understanding about the need to participate in therapy. consider anti-depressants. (2) Pneumonia: Code(s): J18.9 - Pneumonia, unspecified organism Status: Acute Assessment and Plan: Was on broad-spectrum antibiotics on admission but changed to Rocephin monotherapy when pneumococcal antigen returned positive. Vancomycin added 12/12/21 due to MRSA in sputum culture. Changed Rocephin to Primaxin on 12/14/21 for climbing white count and fever. CXR showing loculated pleural effusion and had thoracentesis on 12/19 with removal of 100mL. Pleural Culture showing few WBC but NGTD. Labs have returned consistent with exudative pleural effusion process. He has loculated effusion and suspect parapneumonic. As above. Completed Vanco (Day 10); Primaxin to stop today (Day 10). (3) Acute coronary syndrome: Code(s): I24.9 - Acute ischemic heart disease, unspecified Status: Acute Assessment and Plan: Acute coronary syndrome with EKG showing ST-elevation in V2 and V3 with no reciprocal changes and Trop to 16 -> 6 consistent with STEMI. Cardiology consulted and appreciate their input. Echo showing EF 20-25% with Grade II diastolic dysfunction. No further chest pain. Heparin gtt was stopped. Currently on ASA, Coreg and statin. NTG available prn. Ischemia evaluation when able. Cardiology was okay to stop Plavix for 5 days for thoracentesis. Plavix has since been resumed. (4) CHF (congestive heart failure): Code(s): I50.9 - Heart failure, unspecified Status: Acute Assessment and Plan: Echo showing EF 20-25% with Grade II diastolic dysfunction. He underwent aggressive diuresis with improvement in CXR. Lasix held due to increasing Cr. Continue Coreg, Entresto and Lasix. BP remaining stable. (5) Acute hyponatremia: Code(s): E87.1 - Hypo-osmolality and hyponatremia Status: Acute Assessment and Plan: Possibly related to fluid overload and poor renal perfusion from the EF 20%. Shalom <5. 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 Na better at 129 today. Remains on fluid restriction. Continue NaCl tabs. Appreciate Nephrology consultation. 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 Patient with known insulin-dependent diabetes. Admitted and found to have DKA treated with DKA protocol. DKA has resolved and started on lantus. Continue AccuCheks covering with sliding scale. Hypog
[2021-12-23 16:45] LABS: Glucose Point of Care 158 mg/dl (65-105)
[2021-12-23 20:56] LABS: Glucose Point of Care 172 mg/dl (65-105)
[2021-12-23] MEDS: MELATONIN 5 MG TABLET PO (21:27)
[2021-12-23] MEDS: INSULIN GLARGINE (*BKC) 100 UNITS/ML 20 UNITS SUB-Q (21:27)
[2021-12-23] MEDS: ALTEPLASE 2 MG VIAL (CATHFLO) IV PUSH (23:41)
[2021-12-24] VITALS (8 sets, daily range): BP systolic 142–144; BP diastolic 69–73; PULSE 75–89; RESP 16–20; TEMP 36.6–36.9; O2SAT 90–93
[2021-12-24] MEDS: LEVALBUTEROL NEB 1.25 MG/3 ML 0.63 MG INHALATION ×2 (05:54→13:38)
[2021-12-24 08:13] LABS: Glucose Point of Care 111 mg/dl (65-105)
[2021-12-24 08:26] LABS: Alanine Aminotransferase 51 U/L (6-50); Albumin Level 2.6 g/dL (3.5-5.1); Alkaline Phosphatase 103 U/L (38-126); Anion Gap 6 mmol/L (8-16); Aspartate Amino Transferase 64 U/L (17-59); Bilirubin,Total 0.5 mg/dL (0.2-1.3); Blood Urea Nitrogen 24 mg/dL (9-20); Calcium 7.4 mg/dL (8.4-10.2); Carbon Dioxide 28 mmol/L (22-30); Chloride 97 mmol/L (98-107); Estimated CRCL calculation 52 ml/min; Estimated Glomerular Filt Rate 59; Glucose 109 mg/dL (65-110); Potassium 3.5 mmol/L (3.4-5.0); Sodium 131 mmol/L (137-145)
[2021-12-24 08:40] LABS: Hematocrit 32.7 % (42.0-52.0); Hemoglobin 10.4 g/dL (14.0-18.0); Mean Corpuscular HGB Conc 31.8 g/dl (32-36); Mean Corpuscular Hemoglobin 28.1 pg (26-34); Mean Corpuscular Volume 88.4 fl (80-100); Mean Platelet Volume 9.6 fl (7.4-10.4); Platelet Count Result 593 k/mm3 (150-375); Red Cell Distribution Width 14.3 % (11.5-14.5); White Blood Count 6.4 K/mm3 (4.5-10.0)
[2021-12-24] MEDS: CLOPIDOGREL BISULFATE 75 MG TABLET PO (09:13)
[2021-12-24] MEDS: CALCIUM CARBONATE (OSCAL) 500 MG TABLET PO (09:14)
[2021-12-24] MEDS: guaiFENesin 12 HR 600 MG TABCR 1200 MG PO (09:14)
[2021-12-24] MEDS: carvediloL 3.125 MG TABLET PO (09:14)
[2021-12-24] MEDS: SACUBITRIL/VALSARTAN 24-26 MG TABLET 1 TAB PO (09:14)
[2021-12-24] MEDS: ASPIRIN 81 MG ENTERIC TABLET PO (09:14)
[2021-12-24] MEDS: EMPAGLIFLOZIN 10 MG TABLET PO (09:14)
[2021-12-24] MEDS: LOVASTATIN 20 MG TABLET 40 MG PO (09:14)
[2021-12-24] MEDS: FAMOTIDINE 20 MG TABLET PO (09:14)
[2021-12-24] MEDS: ENOXAPARIN 40 MG/0.4 ML SYRINGE SUB-Q (09:15)
--- NOTE | 2021-12-24 10:27 | PCPTNOTE ---
The patient treatment was not able to be completed due to pt stating he didn't feel well this morning. He stated that he has been bothered all morning. Will plan to continue treatment per plan of care.
--- NOTE | 2021-12-24 11:20 | P.PNNP_ITS ---
Progress Note: A&P Assessment and Plan (1) Stage 3b chronic kidney disease: Code(s): N18.32 - Chronic kidney disease, stage 3b Status: Chronic Assessment and Plan: * baseline creatinine seems to run ~ 1.4 - 1.7mg/dl * presumably due to hypertension, diabetes, chronic pre-renal azotemia from his cardiomyopathy, and vascular disease * evaluation to date noted: * renal ultrasound is normal * Echo shows EF of only 20-25% * urine sodium is less than 5 * urine protein to creatinine ratio is 290 * urinalysis shows some protein * complements/SACHA/serum immunofixation negative; urine immunofixation pending (maybe not done) * follow trend of UOP and repeat labs (2) Hyponatremia: Code(s): E87.1 - Hypo-osmolality and hyponatremia Status: Chronic Assessment and Plan: * has had this issue on/off for that last few years - likely related to his known cardiomyopathy and HCTZ use * however, acutely worse on this hospitalization - probably from pneumonia * evaluation to date: * TSH and cortisol level okay * no history of malignancy * no CHILDREN'S ATTENDANT issues (refused brain CT) * continue current therapy of fluid restriction, lasix, and salt tabs * may consider easing up on fluid restriction if sodium continues to improve * given previous worsening hyponatremia, off metolazone (3) CHF (congestive heart failure): Code(s): I50.9 - Heart failure, unspecified Status: Acute Assessment and Plan: * complicated by chest pain/ACS + underlying cardiomyopathy * Cardiology following * diuretics on hold - likely resume oral diuretics as tolerated (4) Pneumonia: Code(s): J18.9 - Pneumonia, unspecified organism Status: Acute Assessment and Plan: * as noted by imaging to date * on antibiotics * follow culture data (5) Hypertension: Qualifiers: Hypertension type: essential hypertension Qualified Code(s): I10 - Essential (primary) hypertension Code(s): I10 - Essential (primary) hypertension Status: Chronic Assessment and Plan: * reasonable control at this time * continue to follow trend of hemodynamics (6) Insulin dependent diabetes mellitus: Status: Chronic Assessment and Plan: * follow accuchecks * on Lantus and SSI Will continue to follow. Subjective Date/time seen: 12/24/21 11:20 No new issues or problems to report at this time; breathing/respiratory status is stable if not better; sodium level has been holding steady if no slowly improving; no events overnight or earlier this AM. Exam Narrative: General: elderly male in NAD Heart: normal S1 and S2; no rub Lungs: decreased at bases Abdomen: soft, nontender, nondistended, positive bowel sounds Extremities: no cyanosis or clubbing; 1+ edema Skin: no rash Objective Data Vital Signs Vital Signs: Vital Signs Temp Pulse Resp BP Pulse Ox 12/24/21 06:08 75 18 12/24/21 05:58 79 18 12/24/21 05:57 92 12/24/21 05:45 36.9 C 83 18 142/69 H 93 12/23/21 22:00 36.8 C 87 18 125/72 95 12/23/21 21:26 85 12/23/21 20:49 82 18 12/23/21 20:39 85 18 12/23/21 20:38 91 12/23/21 14:00 36.2 C L 83 18 143/60 H 93 Intake/Output Intake/Output: Intake & Output
--- NOTE | 2021-12-24 11:20 | PM.PNNEP ---
Progress Note: A&P Assessment and Plan (1) Stage 3b chronic kidney disease: Code(s): N18.32 - Chronic kidney disease, stage 3b Status: Chronic Assessment and Plan: baseline creatinine seems to run ~ 1.4 - 1.7mg/dl presumably due to hypertension, diabetes, chronic pre-renal azotemia from his cardiomyopathy, and vascular disease evaluation to date noted: renal ultrasound is normal Echo shows EF of only 20-25% urine sodium is less than 5 urine protein to creatinine ratio is 290 urinalysis shows some protein complements/SACHA/serum immunofixation negative; urine immunofixation pending (maybe not done) follow trend of UOP and repeat labs (2) Hyponatremia: Code(s): E87.1 - Hypo-osmolality and hyponatremia Status: Chronic Assessment and Plan: has had this issue on/off for that last few years - likely related to his known cardiomyopathy and HCTZ use however, acutely worse on this hospitalization - probably from pneumonia evaluation to date: TSH and cortisol level okay no history of malignancy no 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 (refused brain CT) continue current therapy of fluid restriction, lasix, and salt tabs may consider easing up on fluid restriction if sodium continues to improve given previous worsening hyponatremia, off metolazone (3) CHF (congestive heart failure): Code(s): I50.9 - Heart failure, unspecified Status: Acute Assessment and Plan: complicated by chest pain/ACS + underlying cardiomyopathy Cardiology following diuretics on hold - likely resume oral diuretics as tolerated (4) Pneumonia: Code(s): J18.9 - Pneumonia, unspecified organism Status: Acute Assessment and Plan: as noted by imaging to date on antibiotics follow culture data (5) Hypertension: Qualifiers: Hypertension type: essential hypertension Qualified Code(s): I10 - Essential (primary) hypertension Code(s): I10 - Essential (primary) hypertension Status: Chronic Assessment and Plan: reasonable control at this time continue to follow trend of hemodynamics (6) Insulin dependent diabetes mellitus: Status: Chronic Assessment and Plan: follow accuchecks on Lantus and SSI Will continue to follow. Subjective Date/time seen: 12/24/21 11:20 No new issues or problems to report at this time; breathing/respiratory status is stable if not better; sodium level has been holding steady if no slowly improving; no events overnight or earlier this AM. Exam Narrative: General: elderly male in NAD Heart: normal S1 and S2; no rub Lungs: decreased at bases Abdomen: soft, nontender, nondistended, positive bowel sounds Extremities: no cyanosis or clubbing; 1+ edema Skin: no rash Objective Data Vital Signs Vital Signs: Vital Signs Temp Pulse Resp BP Pulse Ox 12/24/21 06:08 75 18 12/24/21 05:58 79 18 12/24/21 05:57 92 12/24/21 05:45 36.9 C 83 18 142/69 H 93 12/23/21 22:00 36.8 C 87 18 125/72 95 12/23/21 21:26 85 12/23/21 20:49 82 18 12/23/21 20:39 85 18 12/23/21 20:38 91 12/23/21 14:00 36.2 C L 83 18 143/60 H 93 Intake/Output Intake/Output: Intake & Output 12/21/21 12/22/21 12/23/21 12/24/21 23:59 23:59 23:59 23:59 Intake Total 1360 1299 1481 236 Output Total 1800 1925 1650 675 Balance -440 -626 -169 -439 Meds/Results Medications: Active Medications Generic Name Dose Route Start Last Admin Trade Name Darell PRN Reason Stop Dose Admin Acetaminophen 650 mg 12/05/21 00:07 12/20/21 23:56 Acetaminophen 325 Mg Tablet PO 650 mg Q4H PRN Administration Mild Pain (1-3) or Fever Alteplase, Recombinant 2 mg 12/23/21 21:52 12/23/21 23:41 Alteplase 2 Mg Vial (Cathflo) IV PUSH 1 mg ONCE PRN Administration Line Occlusion Aspirin 81 mg 12/05/21 09:00 12/24/21 09:14 Aspirin 81 Mg Enteric Tablet PO
[2021-12-24] MEDS: SODIUM CHLORIDE 500 MG TABLET 1500 MG PO ×2 (11:34→17:09)
[2021-12-24] MEDS: FUROSEMIDE 40 MG TABLET PO (11:34)
[2021-12-24 11:48] LABS: Glucose Point of Care 212 mg/dl (65-105)
[2021-12-24] MEDS: SALINE LOCK FLUSH 10 ML IV PUSH (14:00)
--- NOTE | 2021-12-24 14:27 | PM.IMPN ---
Subjective Date/time seen: 12/24/21 14:27 Objective Data Vital Signs Vital Signs: Vital Signs - 24 hr 12/23/21 20:38 12/23/21 20:39 12/23/21 20:49 Temperature Pulse Rate 85 82 Respiratory Rate 18 18 Blood Pressure Pulse Oximetry 91 12/23/21 21:26 12/23/21 22:00 12/24/21 05:45 Temperature 98.3 F 98.4 F Pulse Rate 85 87 83 Respiratory Rate 18 18 Blood Pressure 125/72 142/69 H Pulse Oximetry 95 93 12/24/21 05:57 12/24/21 05:58 12/24/21 06:08 Temperature Pulse Rate 79 75 Respiratory Rate 18 18 Blood Pressure Pulse Oximetry 92 12/24/21 09:14 12/24/21 13:41 12/24/21 13:47 Temperature Pulse Rate 76 76 Respiratory Rate 20 18 Blood Pressure Pulse Oximetry 90 90 Intake/Output Intake/Output: Intake & Output 12/21/21 12/22/21 12/23/21 12/24/21 23:59 23:59 23:59 23:59 Intake Total 1360 1299 1481 236 Output Total 1800 2625 1650 675 Balance -440 -626 -169 -439 Meds/Results Medications: Active Medications Generic Name Dose Route Start Last Admin Trade Name Carlosq PRN Reason Stop Dose Admin Acetaminophen 650 mg 12/05/21 00:07 12/20/21 23:56 Acetaminophen 325 Mg Tablet PO 650 mg Q4H PRN Administration Mild Pain (1-3) or Fever Alteplase, Recombinant 2 mg 12/23/21 21:52 12/23/21 23:41 Alteplase 2 Mg Vial (Cathflo) IV PUSH 1 mg ONCE PRN Administration Line Occlusion Aspirin 81 mg 12/05/21 09:00 12/24/21 09:14 Aspirin 81 Mg Enteric Tablet PO 81 mg QAM KAYLI Administration Calcium Carbonate 500 mg 12/15/21 08:00 12/24/21 09:14 Calcium Carbonate (Oscal) 500 Mg Tablet PO 500 mg DAILY@0800 [facility] Administration Carvedilol 3.125 mg 12/07/21 10:00 12/24/21 09:14 Carvedilol 3.125 Mg Tablet PO 3.125 mg Q12HR KAYLI Administration Clopidogrel Bisulfate 75 mg 12/22/21 09:00 12/24/21 09:13 Clopidogrel Bisulfate 75 Mg Tablet PO 75 mg QAM KAYLI Administration Dextrose 12.5 gm 12/05/21 02:12 12/14/21 05:20 Dextrose 50% 25 Gm/50 Ml Syringe IV PUSH 12.5 gm PRN PRN Administration Hypoglycemia Protocol Empagliflozin 10 mg 12/18/21 09:00 12/24/21 09:14 Empagliflozin 10 Mg Tablet PO 10 mg DAILY KAYLI Administration Enoxaparin Sodium 40 mg 12/09/21 09:00 12/24/21 09:15 Enoxaparin 40 Mg/0.4 Ml Syringe SUB-Q 40 mg DAILY KAYLI Administration Famotidine 20 mg 12/21/21 21:00 12/24/21 09:14 Famotidine 20 Mg Tablet PO 20 mg Q12HR KAYLI Administration Furosemide 40 mg 12/22/21 12:00 12/24/21 11:34 Furosemide 40 Mg Tablet PO 40 mg NOON KAYLI Administration Glucagon 1 mg 12/05/21 02:12 Glucagon For Inj 1 Mg Vial IM PRN PRN Hypoglycemia Protocol Glucose 15 gm 12/05/21 02:12 Glucose Oral Gel 15 Gm Of Glucse In 37.5 Gm Tube PO PRN PRN Hypoglycemia Protocol Guaifenesin 1,200 mg 12/16/21 21:00 12/24/21 09:14 Guaifenesin 12 Hr 600 Mg Tabcr PO 1,200 mg Q12HR KAYLI Administration Dextrose 1,000 mls @ 100 mls/hr 12/05/21 02:12 Dextrose 5% 1,000 Ml IVPB PRN PRN Hypoglycemia Protocol Insulin Aspart 4 - 8 units 12/05/21 17:00 12/24/21 09:12 Insulin Aspart (*Bkc) 100 Units/Ml SUB-Q Not Given TIDWM KAYLI Protocol Insulin Glargine 20 units 12/23/21 21:00 12/23/21 21:27 Insulin Glargine (*Bkc) 100 Units/Ml SUB-Q 20 units HS KAYLI Administration Levalbuterol HCl 0.63 mg 12/21/21 20:00 12/24/21 13:38 Levalbuterol Neb 1.25 Mg/3 Ml INHALATION 0.63 mg [id number] KAYLI Administration Lovastatin 40 mg 12/05/21 15:29 12/24/21 09:14 Lovastatin 20 Mg Tablet PO 40 mg DAILY KAYLI Administration Melatonin 5 mg 12/20/21 21:00 12/23/21 21:27 Melatonin 5 Mg Tablet PO 5 mg HS KAYLI Administration Miconazole Nitrate 1 applic 12/12/21 11:00 12/24/21 09:22 Miconazole 2% Antifungal Ointment 56 Gm TOPICAL 1 applic Q12HR KAYLI Administration Nitroglycerin 0.4 mg 12/06
--- NOTE | 2021-12-24 14:49 | PM.DS ---
DS: Admitting Diagnosis Discharge Date cynthia was seen and excamined 12/24/2021 Admitting Diagnosis pneumonia DS: Discharge Diagnosis Discharge Diagnosis (1) Acute respiratory failure: Code(s): J96.00 - Acute respiratory failure, unspecified whether with hypoxia or hypercapnia Status: Acute Assessment and Plan: On admission, acute respiratory failure related to pneumonia and ACS. Patient was started on broad-spectrum IV antibiotics with antifungal treatment as well. Legionella Ag negative, pneumococcal Ag positive. Blood cultures negative. Coccidiomycosis titers negative. Speech therapy bedside evaluation was okay 12/06. Antifungal treatment stopped and abx adjusted to Rocephin monotherapy. WBC dropped to 16K. Sputum result returned on 12/12/21 growing Staph aureus so vancomycin started. Sensitivity shows MRSA. WBC increased to 23.6K and was having fevers. Chest x-ray showing worsening infiltrates and moderate right effusion. Primaxin added 12/14/21. Started on Lasix IV as well with good UOP with negative cumulative fluid balance. He was re-cultured on 12/14/21; UCx and BCx negative. COVID and Influenza negative. LE dopplers negative for DVT. Fevers resolved and WBC normal. Low grade temp the other night felt related to atelectasis. Continue Primaxin. Completed vancomycin. Cr better at 1.5. We held BiPAP and Apnea link on 2L showing AHI 2.1 and RI 5.9 without significant hypoxia. Wean O2 as tolerated. Held BiPAP for now and monitored. (2) Pneumonia: Code(s): J18.9 - Pneumonia, unspecified organism Status: Acute Assessment and Plan: Was on broad-spectrum antibiotics on admission but changed to Rocephin monotherapy when pneumococcal antigen returned positive. Vancomycin added 12/12/21 due to MRSA in sputum culture. Changed Rocephin to Primaxin on 12/14/21 for climbing white count and fever. CXR showing loculated pleural effusion. Had to wait until patient off Plavix x 5 day. He had thoracentesis on 12/19 with removal of 100mL. Gram stain showing many WBC but no organisms but the 2nd gram stain showing no organisms or white blood cells seen. Culture showing few WBC but NGTD. Cell count not performed but 90% neutrophils. Labs have returned consistent with exudative pleural effusion process. He has loculated effusion and suspected parapneumonic. As above. Stopped Vanco (Day 10). Continued Primaxin through. (3) Acute coronary syndrome: Code(s): I24.9 - Acute ischemic heart disease, unspecified Status: Acute Assessment and Plan: Acute coronary syndrome with EKG showing ST-elevation in V2 and V3 with no reciprocal changes and Trop to 16 -> 6 consistent with STEMI. Cardiology consulted and appreciate their input. Echo showing EF 20-25% with Grade II diastolic dysfunction. No further chest pain. Heparin gtt was stopped. Currently on ASA, Coreg and statin. NTG available prn. Ischemia evaluation when able. Cardiology was okay to stop Plavix for 5 days for thoracentesis. Resume Plavix. Stop tele. (4) CHF (congestive heart failure): Code(s): I50.9 - Heart failure, unspecified Status: Acute Assessment and Plan: Echo showing EF 20-25% with Grade II diastolic dysfunction. He underwent aggressive diuresis with improvement in CXR. Lasix held due to increasing Cr. Continue Coreg, Entresto. Resume Lasix at noon time given his soft BP. Okay to remove [facility]. (5) Acute hyponatremia: Code(s): E87.1 - Hypo-osmolality and hyponatremia Status: Acute Assessment and Plan: Possibly related to fluid overload and poor renal perfusion from the EF 20%. Shalom <5. 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 Na better at 129 today. Remains on fluid restriction. Continue NaCl tabs. Appreciate Nephrology consultation. (6) Type 2 diabetes mellitus with hyperglycemia, with long-term current use of insulin: Code(s): E11.65 - Type 2 diabetes mellitus with hyperglycemia; Z79.4 - assisted (current) use of
[2021-12-24 16:04] LABS: EDCOVIDSCREEN Negative (Negative)
[2021-12-24 16:18] LABS: Glucose Point of Care 177 mg/dl (65-105)
== END 2021-12-24 18:50 | DRG 871 ==
LOC: ANHED 23:18 → ANHICU 12-05 00:25 → ANH2MED 12-10 12:39 → ANHICU 12-13 12:43 → ANHIMU 12-17 11:37 → ANH3MEDSUR 12-19 10:43
PROVIDERS: Internal Medicine; Internal Medicine Nephrology; Student in an Organized Health Care Education/Training Program; Admitting Provider Internal Medicine; Emergency Provider Emergency Medicine; PCP Physician Assistant; Visit Provider Internal Medicine
DX: A41.9 Sepsis, unspecified organism (principal); E11.10 Type 2 diabetes mellitus with ketoacidosis without coma; J96.00 Acute respiratory failure, unspecified whether with hypoxia or hypercapnia; N17.0 Acute kidney failure with tubular necrosis; I22.2 Subsequent non-ST elevation (NSTEMI) myocardial infarction; I21.19 ST elevation (STEMI) myocardial infarction involving other coronary artery of inferior wall; J18.1 Lobar pneumonia, unspecified organism; E87.1 Hypo-osmolality and hyponatremia; I13.0 Hypertensive heart and chronic kidney disease with heart failure and stage 1 through stage 4 chronic kidney disease, or unspecified chronic kidney disease; I50.20 Unspecified systolic (congestive) heart failure; J90 Pleural effusion, not elsewhere classified; I47.1 Supraventricular tachycardia; Z20.822 Contact with and (suspected) exposure to COVID-19; Z95.1 Presence of aortocoronary bypass graft; I25.10 Atherosclerotic heart disease of native coronary artery without angina pectoris; N18.30 Chronic kidney disease, stage 3 unspecified; E78.5 Hyperlipidemia, unspecified; E11.22 Type 2 diabetes mellitus with diabetic chronic kidney disease; I12.9 Hypertensive chronic kidney disease with stage 1 through stage 4 chronic kidney disease, or unspecified chronic kidney disease; Z89.411 Acquired absence of right great toe; Z89.422 Acquired absence of other left toe(s); Z89.421 Acquired absence of other right toe(s); E11.51 Type 2 diabetes mellitus with diabetic peripheral angiopathy without gangrene; Z79.4 Long term (current) use of insulin; E11.42 Type 2 diabetes mellitus with diabetic polyneuropathy; R65.20 Severe sepsis without septic shock; E87.6 Hypokalemia; J06.9 Acute upper respiratory infection, unspecified; D63.8 Anemia in other chronic diseases classified elsewhere; I25.5 Ischemic cardiomyopathy; N18.32 Chronic kidney disease, stage 3b; E83.42 Hypomagnesemia; E87.8 Other disorders of electrolyte and fluid balance, not elsewhere classified; T50.2X5A Adverse effect of carbonic-anhydrase inhibitors, benzothiadiazides and other diuretics, initial encounter; Y92.230 Patient room in hospital as the place of occurrence of the external cause; I48.91 Unspecified atrial fibrillation
CPT/HCPCS: 32555; 36415; 36569; 36600; 71045; 71046; 76775; 80048; 80053; 80069; 80076; 80202; 81001; 82042; 82247; 82375; 82436; 82465; 82533; 82550; 82570; 82805; 82945; 82947; 82948; 83036; 83050; 83605; 83615; 83735; 83880; 83883; 83986; 84075; 84100; 84133; 84155; 84156; 84157; 84295; 84300; 84311; 84443; 84450; 84478; 84484; 85025; 85027; 85610; 85652; 85730; 85999; 86038; 86160; 86162; 86334; 86335; 86635; 87015; 87040; 87070; 87075; 87077; 87086; 87102; 87106; 87116; 87186; 87205; 87206; 87426; 87449; 87502; 87899; 88104; 88108; 88184; 88305; 89051; 92610; 93005; 93970; 93971; 94002; 94003; 94640; 94667; 94668; 94762; 96365; 96366; 96375; 97110; 97116; 97161; 97164; 97165; 97168; 97530; 97535; 99285; A9270; C1751; C8929; C9113; C9803; J0696; J0743; J1450; J1644; J1650; J1815; J1940; J2405; J2543; J2550; J2997; J3370; J3475; J3480; J7030; J7040; J7050; J7120; Q9957; U0003; U0005

== ENCOUNTER 2022-02-02 07:56 | Outpatient (RCR) | payer MEDICARE, SELFPAY ==
[2022-01-19 12:25] VITALS: BMI 23.9
== END 2022-03-27 08:40 | disposition home or self-care (01) ==
LOC: ANHWOC 07:56
PROVIDERS: PCP Physician Assistant; Visit Provider Physician Assistant
DX: L89.891 Pressure ulcer of other site, stage 1 (principal)
CPT/HCPCS: 99212; 99213; G0463

== ENCOUNTER 2022-03-11 22:00 | Emergency (ER) | payer MEDICARE, SELFPAY ==
--- NOTE | ~2022-03-11 | CT_ITS ---
EXAMINATION: CT cervical spine wo con DATE: 03/11/2022 22:59 INDICATION: head injury TECHNIQUE: Computed tomography (CT) of the cervical spine was performed without intravenous contrast. Automated exposure control and iterative reconstruction technique were employed. The dose-length pro duct was 389.09 mGy-cm. COMPARISON: None FINDINGS: Vertebral Body Alignment: Intact. Craniocervical and atlantoaxial alignment: Moderate degenerative change. Alignment intact. Osseous structures/fracture: No evidence of a lytic or blastic process in the visualized spine. No e vidence of acute fracture. Cervical soft tissues: The paraspinal soft tissues planes are maintained. 1.2 cm right thyroid nodule that requires no additional workup. Degenerative changes: Uncomplicated ACDF at C5-7. Degenerative changes, without severe neural foramin al or central canal narrowing. IMPRESSION: No acute fracture or traumatic malalignment in the cervical spine. Reviewed, dictated and finalized at location K.
--- NOTE | ~2022-03-11 | CT_ITS ---
EXAMINATION: CT brain wo con DATE: 03/11/2022 22:59 INDICATION: head injury . TECHNIQUE: Computed tomography (CT) of the head was performed without intravenous contrast. The mA wa s adjusted according to patient size. Iterative reconstruction technique was employed. The dose-lengt h product was 605.33 mGy-cm. COMPARISON: None FINDINGS: No acute intracranial hemorrhage or extra-axial fluid collection. No hydrocephalus, mass, or herniation. No acute ischemic infarct. Unremarkable dural venous sinus attenuation. No acute osseous abnormality. The aerated spaces are clear. Mild atrophy and chronic white matter change. Old left cerebellar infarct. Atherosclerotic intracrani al calcifications. Bilateral lens replacements. IMPRESSION: No acute intracranial process. The overnight pulmonary report stated skull fracture which likely was a dictation error and intende d to be no skull fracture . No skull fracture was detected at the time of final read. This was discu ssed telephonically with Dr. Knutson at 2:45 PM on 03/12/[address] Oconnell. Patient management was not affected. Reviewed, dictated and finalized at location K. IMPRESSION: No acute intracranial process. The overnight pulmonary report stated skull fracture which likely was a dicta tion error and intended to be no skull fracture . No skull fracture was detect ed at the time of final read. This was discussed telephonically with Dr. Shnati hollins at 2:45 PM on 03/12/[address] Oconnell. Patient management was not affected.
[2022-03-11 22:24] VITALS: BP 144/66; PULSE 98; RESP 18; TEMP 36.6; O2SAT 100
--- NOTE | 2022-03-11 23:02 | ED.HEATRA ---
HPI - Head Injury General Chief complaint: Head Injury Stated complaint: scalp lac Time Seen by Provider: 03/11/22 22:46 History of Present Illness HPI Narrative: Patient is a 76-year-old male complaining of head injury, states that he was trying to close the blinds he leaned over and his left knee gave out hitting his head on the fireplace. Patient states that he has been having knee problems for quite some time. Patient states that he currently does not have any pain. Patient denies loss of consciousness. Denies any symptoms prior to the fall. Patient states that he was able to stand up and walk after the fall. Denies any neck, chest, abdomen, back, pelvis or any extremity pain/injury. Related Data Home Medications Medication Instructions Recorded Confirmed cilostazol 100 mg tablet 100 mg PO BID 09/03/19 02/17/22 carvedilol 3.125 mg tablet 6.25 mg PO Q12H 01/11/22 02/17/22 dapagliflozin 10 mg tablet 10 mg PO DAILY 02/17/22 02/17/22 (Farxiga) dulaglutide 0.75 mg/0.5 mL 0.75 mg subcut WEEKLY 02/17/22 02/17/22 subcutaneous pen injector (Trulicity) insulin lispro protamine-lispro 10 unit subcut QPM 02/17/22 02/17/22 100 unit/mL (75-25) subcutaneous pen insulin lispro protamine-lispro 30 unit subcut QAM 02/17/22 02/17/22 100 unit/mL (75-25) subcutaneous pen spironolactone 25 mg tablet 12.5 mg PO DAILY 02/17/22 02/17/22 Allergies Allergy/AdvReac Type Severity Reaction Status Date / Time CRISELDA Inhibitors AdvReac Intermediate Nausea Verified 03/11/22 22:44 Review of Systems Review of Systems: All systems reviewed & are unremarkable except as noted in HPI and below Constitutional: Constitutional: Denies body ache(s), Denies chills, Denies excessive sweating, Denies fatigue, Denies fever(s), Denies headache(s), Denies lethargy, Denies malaise, Denies weakness and Denies weight loss Eyes: Eyes: Denies blurry vision, Denies change in vision and Denies loss of vision ENT: Denies dizziness, Denies ear discharge, Denies headache(s), Denies lip swelling, Denies epistaxis, Denies nasal congestion, Denies neck pain, Denies throat swelling and Denies tongue swelling Cardiovascular: Cardiovascular: Denies chest pain, Denies chest pain at rest, Denies chest pain with activity, Denies diaphoresis, Denies rapid heart rate, Denies edema, Denies irregular heart rhythm, Denies lightheadedness, Denies palpitations, Denies dyspnea and Denies dyspnea on exertion Respiratory: Respiratory: Denies chest congestion, Denies cough, Denies hemoptysis, Denies dyspnea and Denies dyspnea on exertion Gastrointestinal: Gastrointestinal: Denies abdominal pain, Denies melena, Denies hematochezia, Denies diarrhea, Denies nausea, Denies vomiting and Denies hematemesis Musculoskeletal: Musculoskeletal: Denies abnormal gait, Denies deformity, Denies joint swelling, Denies limited range of motion, Denies neck pain and Denies numbness Neurologic: Denies Abnormal speech present, Denies abnormal gait, Denies confusion, Denies dizziness, Denies headache(s), Denies focal weakness, Denies loss of vision, Denies numbness, Denies Other visual disturbances, Denies Sensory deficit (Neuro) and Denies weakness Psychiatric: Psychiatric: Denies confusion, Denies depression, Denies auditory hallucinations, Denies homicidal ideation and Denies suicidal ideation Endocrine: Endocrine: Denies cold intolerance, Denies excessive sweating, Denies fatigue, Denies heat intolerance and Denies palpitations Hematologic/Lymphatic: Hematologic/Lymphatic: Denies easy bleeding and Denies easy bruising Allergic/Immunologic: Allergic/Immunologic: Denies lip swelling, Denies throat swelling and Denies tongue swelling PMFSH Past Medical History Medical History Abscess of right foot Anemia Arthritis Cellulitis of foot, right Cellulitis of right foot Chronic foot ulcer Chronic kidney disease, stage 3 Baseline creatinine as
[2022-03-11] MEDS: TETANUS,DIPHTHERIA,AC PERTUSSIS ADULT (0.5 ML) BOOSTRIX IM (23:48)
[2022-03-12 00:07] VITALS: BP 136/62; PULSE 91; RESP 20; O2SAT 100
== END 2022-03-12 00:08 | disposition home or self-care (01) ==
PROVIDERS: Emergency Provider Emergency Medicine; PCP Physician Assistant
DX: S09.90XA Unspecified injury of head, initial encounter (principal); Z23 Encounter for immunization; E11.22 Type 2 diabetes mellitus with diabetic chronic kidney disease; I12.9 Hypertensive chronic kidney disease with stage 1 through stage 4 chronic kidney disease, or unspecified chronic kidney disease; N18.30 Chronic kidney disease, stage 3 unspecified; E11.319 Type 2 diabetes mellitus with unspecified diabetic retinopathy without macular edema; E11.42 Type 2 diabetes mellitus with diabetic polyneuropathy; E11.69 Type 2 diabetes mellitus with other specified complication; M86.9 Osteomyelitis, unspecified; E11.51 Type 2 diabetes mellitus with diabetic peripheral angiopathy without gangrene; I73.9 Peripheral vascular disease, unspecified; I25.10 Atherosclerotic heart disease of native coronary artery without angina pectoris; E78.5 Hyperlipidemia, unspecified; M19.90 Unspecified osteoarthritis, unspecified site; Z95.1 Presence of aortocoronary bypass graft; Z86.2 Personal history of diseases of the blood and blood-forming organs and certain disorders involving the immune mechanism; Z89.421 Acquired absence of other right toe(s); Z89.412 Acquired absence of left great toe; Z98.1 Arthrodesis status; Z79.4 Long term (current) use of insulin; Z79.899 Other long term (current) drug therapy; Z79.82 Long term (current) use of aspirin; W01.198A Fall on same level from slipping, tripping and stumbling with subsequent striking against other object, initial encounter
CPT/HCPCS: 70450; 72125; 90471; 90715; 99284

== ENCOUNTER 2022-04-05 14:30 | Outpatient (RCR) | payer MEDICARE, SELFPAY | END 2022-05-22 10:21 | disposition home or self-care (01) | LOC: ANHDMC 14:30 | PROVIDERS: PCP Physician Assistant; Visit Provider Internal Medicine Endocrinology, Diabetes & Metabolism | DX: E11.65 Type 2 diabetes mellitus with hyperglycemia (principal); Z71.89 Other specified counseling | CPT/HCPCS: G0108; G0109 ==

== ENCOUNTER 2022-05-11 16:30 | Outpatient (RCR) | payer MEDICARE, SELFPAY ==
[2022-02-22 12:21] LABS: Glucose Point of Care 158 mg/dl (65-105)
[2022-02-27 12:03] LABS: Glucose Point of Care 147 mg/dl (65-105)
[2022-03-27 17:34] LABS: Glucose Point of Care 142 mg/dl (65-105)
[2022-03-29 18:11] LABS: Glucose Point of Care 74 mg/dl (65-105)
[2022-03-29 18:11] LABS: Glucose Point of Care 96 mg/dl (65-105)
== END 2022-05-11 17:07 | disposition home or self-care (01) ==
LOC: ANHCPREHAB 16:30
PROVIDERS: PCP Physician Assistant
DX: I50.89 Other heart failure (principal)
CPT/HCPCS: 93798

== ENCOUNTER 2022-06-29 14:21 | Outpatient (RCR) | payer MEDICARE, SELFPAY | END 2022-06-29 19:01 | disposition home or self-care (01) | LOC: ANHDMC 14:21 | PROVIDERS: PCP Physician Assistant; Visit Provider Internal Medicine Endocrinology, Diabetes & Metabolism | DX: E11.65 Type 2 diabetes mellitus with hyperglycemia (principal); Z71.89 Other specified counseling | CPT/HCPCS: G0109 ==

== ENCOUNTER 2023-10-13 16:20 | Emergency (ER) | payer MEDICARE, SELFPAY ==
--- NOTE | ~2023-10-13 | XR_ITS ---
EXAMINATION: XR chest 2V Exam Date/Time: 10/13/2023 16:50 BAG INSPECTOR HISTORY: weakness Comparison: 12/23/2021. RESULT: Lines, tubes, and devices: ACDF hardware. Sternotomy wires, fracture of the inferior wire which brenda ins in normal position. Mediastinal surgical clips. Lungs and pleura: Clear. Cardiomediastinal silhouette: Stable. Other: No acute osseous or upper abdominal finding. IMPRESSION: No acute cardiopulmonary process. Reviewed, dictated and finalized at location K. INSPECTOR
[2023-10-13 16:22] VITALS: BP 94/45; PULSE 86; RESP 16; TEMP 36.7; O2SAT 99
--- NOTE | 2023-10-13 16:27 | ECG_ITS ---
Measurements Intervals [place] Rate: 89 P: 14 MN: 162 QRS: 15 QRSD: 88 T: 121 QT: 354 QTc: 433 Interpretive Statements SINUS RHYTHM CANNOT RULE OUT SEPTAL INFARCT, AGE INDETERMINATE ST-T WAVE ABNORMALITY IN HIGH LATERAL LEADS- CONSIDER ISCHEMIA BASELINE ARTIFACT- V1 ABNORMAL ECG COMPARED TO ECG 12/06/2021 10:24:49 SIN[address] NOW PRESENT ST-T WAVE ABNORMALITY NOW PRESENT Electronically Signed On 10-13-2023 17:10:31 MINERAL WOOL INSULATION SUPERVISOR by Elijah Deal D.O.
[2023-10-13 16:39] LABS: Glucose Point of Care 177 mg/dl (65-105)
[2023-10-13 16:44] VITALS: PULSE 87
[2023-10-13 16:45] VITALS: BP 135/59; PULSE 88; RESP 20; TEMP 36.9; O2SAT 98
[2023-10-13 16:54] LABS: Basophils Absolute Auto 0.1 K/mm3 (0.0-0.1); Basophils Percent Auto 0.5 % (0.2-1.2); Eosinophils Percent Auto 0.1 % (0-4.4); Hematocrit 40.1 % (42.0-52.0); Immature Granulocyte Absolute 0.07 K/mm3 (0.00-0.031); Immature Granulocyte Percent A 0.7 % (0-0.5); Lymphocytes Percent Auto 10.7 % (18.3-44.2); Mean Corpuscular HGB Conc 32.4 g/dl (32-36); Mean Corpuscular Hemoglobin 29.3 pg (26-34); Mean Corpuscular Volume 90.5 fl (80-100); Mean Platelet Volume 10.5 fl (7.4-10.4); Monocytes Percent Auto 19.8 % (2.6-8.5); Neutrophils Absolute Auto 7.1 K/mm3 (1.3-6.7); Neutrophils Percent Auto 68.2 % (45.5-73.1); Platelet Count Result 279 k/mm3 (150-375); Red Blood Count 4.43 M/mm3 (4.6-6.20); Red Cell Distribution Width 13.7 % (11.5-14.5); White Blood Count 10.3 K/mm3 (4.5-10.0)
[2023-10-13 17:10] LABS: Alanine Aminotransferase 16 U/L (6-50); Albumin Level 3.7 g/dL (3.5-5.1); Alkaline Phosphatase 75 U/L (38-126); Anion Gap 10 mmol/L (8-16); Aspartate Amino Transferase 29 U/L (17-59); Bilirubin,Total 0.6 mg/dL (0.2-1.3); Blood Urea Nitrogen 45 mg/dL (9-20); Calcium 8.8 mg/dL (8.4-10.2); Carbon Dioxide 19 mmol/L (22-30); Chloride 104 mmol/L (98-107); Estimated CRCL calculation 27 ml/min; Estimated Glomerular Filt Rate 28; Glucose 174 mg/dL (65-110); Potassium 4.3 mmol/L (3.4-5.0); Sodium 133 mmol/L (137-145)
--- NOTE | 2023-10-13 17:15 | ED.GENADULT ---
HPI - General Adult General Chief complaint: Weakness Stated complaint: nausea, decreased apetite, abdominal pain Time Seen by Provider: 10/13/23 16:43 History of Present Illness HPI narrative: 78-year-old male present to the emergency department for evaluation for increased generalized weakness not feeling well since Sunday. Patient states he did have some nausea without vomiting. Patient does have some injury to his foot where his calluses were filed down a bit aggressively. Patient does have some wounds with no evidence of infection. Related Data Home Medications Medication Instructions Recorded Confirmed dapagliflozin propanediol 10 mg 10 mg PO DAILY 02/17/22 09/24/23 tablet (Farxiga) spironolactone 25 mg tablet 12.5 mg PO DAILY 02/17/22 09/24/23 carvedilol 12.5 mg tablet 12.5 mg PO BID 04/30/23 09/24/23 Allergies Allergy/AdvReac Type Severity Reaction Status Date / Time CRISELDA Inhibitors AdvReac Intermediate Nausea Verified 09/19/23 13:45 Review of Systems Review of Systems: All systems reviewed & are unremarkable except as noted in HPI and below PMFSH Past Medical History Medical History Abscess of right foot Anemia Arthritis Atypical nevi Body mass index (BMI) greater than 25 (08/01/18) Cellulitis of foot, right Cellulitis of right foot Chronic foot ulcer Chronic kidney disease, stage 3 Baseline creatinine as 1.3 and 1.60. Colon cancer screening Coronary artery disease Status post CABG in 2004. Cough due to CRISELDA inhibitor Diabetes Diabetic foot infection (03/03/20) Diabetic infection of right foot Diabetic retinopathy Dietary counseling and surveillance Elevated serum creatinine Encounter for screening colonoscopy Essential hypertension Hyperkalemia Hyperlipidemia Hyperlipidemia associated with type 2 diabetes mellitus Hypertension Hypokalemia Impacted cerumen of both ears Insulin dependent diabetes mellitus Complicated by peripheral neuropathy and neuropathy. Lethargy MSSA bacteremia (~10/2018) Secondary to left 1st toe infection. Nocturia Osteomyelitis Requiring amputation of all toes on the right foot over time as well as left 1st toe amputation. Osteomyelitis Osteopenia of hip Peripheral arterial disease Status post right lower extremity balloon angioplasty. Peripheral vascular disease due to secondary diabetes Pre-operative cardiovascular examination Screening for osteoporosis Screening PSA (prostate specific antigen) Type 2 diabetes mellitus without complications Welcome to Medicare preventive visit Wound of right foot Surgical History Surgical History Amputation toe :Transmetatarsal amputations of all toes on the right foot, some requiring further debridement with split-thickness graft per Dr. Cartagena. :Trans phalangeal amputation of the left 1st toe to the proximal phalanges. History of amputation of toe History of coronary artery bypass graft (~2004) 4 vessel bypass. 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 Hx of coronary artery bypass graft CABG report 2004: CABG x5, Dr. Gabriel. SVG to RCA and posterolateral sequentially, GOMEZ to the Left anterior descending, radial artery to from the GOMEZ to the OM, another segment of radial artery from the GOMEZ to another OM Status post amputation of toe of right foot Status post debridement Multiple debridements of diabetic foot infections on both feet over the years per Dr. Cartagena, several requiring skin grafts. Family History Family History Mother Family history of lung cancer Patient's mother is Father Family history of throat can
[2023-10-13 17:33] LABS: Appearance Urine Clear (Clear); Bacteria Urine None Seen /hpf; Bilirubin Urine Negative (Negative); Blood Urine Trace (Negative); Color Urine Yellow (Yellow); Glucose Urine UA 3+ mg/dL (Negative); Ketones Urine 1+ mg/dL (Negative); Leukocyte Esterase Ur Negative LEU/UL (Negative); Nitrate Urine Negative (Negative); Non Pathogenic Casts 0-2; Protein Urine Trace mg/dL (Negative); RBC Urine 0-2 /hpf (0-2); Specific Grav Ur 1.027 (1.001-1.035); Squamous Epithelial Cell Urine None seen /hpf (Few); WBC Urine 0-5 /hpf; pH Urine 5.5 (5.0-9.0)
[2023-10-13 17:44] LABS: Add Urine Microscopic? YES
[2023-10-13] MEDS: SODIUM CHLORIDE 0.9% IV 1,000 ML 999 ML IV CONT (17:52)
[2023-10-13 18:04] LABS: Influenza A QL RT-PCR Negative (Negative); Influenza B QL RT-PCR Negative (Negative); RSV RNA, RT-PCR Negative (Negative); SARS-CoV-2 RNA PCR Negative (Negative)
[2023-10-13 19:16] VITALS: BP 127/87; PULSE 91; RESP 15; O2SAT 99
== END 2023-10-13 19:18 | disposition home or self-care (01) ==
PROVIDERS: Emergency Medicine; Emergency Provider Emergency Medicine; PCP Physician Assistant
DX: R05.9 Cough, unspecified (principal); R11.0 Nausea; Z20.822 Contact with and (suspected) exposure to COVID-19; E11.22 Type 2 diabetes mellitus with diabetic chronic kidney disease; I12.9 Hypertensive chronic kidney disease with stage 1 through stage 4 chronic kidney disease, or unspecified chronic kidney disease; N18.30 Chronic kidney disease, stage 3 unspecified; I25.10 Atherosclerotic heart disease of native coronary artery without angina pectoris; E11.319 Type 2 diabetes mellitus with unspecified diabetic retinopathy without macular edema; E11.69 Type 2 diabetes mellitus with other specified complication; E11.51 Type 2 diabetes mellitus with diabetic peripheral angiopathy without gangrene; I73.9 Peripheral vascular disease, unspecified; E78.5 Hyperlipidemia, unspecified; D64.9 Anemia, unspecified; M19.90 Unspecified osteoarthritis, unspecified site; M85.88 Other specified disorders of bone density and structure, other site; Z95.1 Presence of aortocoronary bypass graft; Z89.412 Acquired absence of left great toe; Z89.421 Acquired absence of other right toe(s); Z79.82 Long term (current) use of aspirin; Z79.85 Long-term (current) use of injectable non-insulin antidiabetic drugs; Z79.4 Long term (current) use of insulin; R94.31 Abnormal electrocardiogram [ECG] [EKG]
CPT/HCPCS: 36415; 71046; 80053; 81001; 82948; 85025; 87637; 93005; 96360; 99284; J7030

== ENCOUNTER 2023-10-16 13:30 | Observation (INO) | payer MEDICARE, SELFPAY ==
[2023-10-16] VITALS (8 sets, daily range): BP systolic 67–129; BP diastolic 47–56; PULSE 72–95; RESP 14–21; TEMP 36.2; O2SAT 94–100; BMI 28.0
--- NOTE | ~2023-10-16 | US_ITS ---
EXAMINATION: US renal BI DATE: 10/17/2023 09:54 INDICATION: Acute on chronic kidney disease. TECHNIQUE: Multiple ultrasound grayscale images of the kidneys were obtained. COMPARISON: 12/05/2021 FINDINGS: The right kidney measures 13.1 x 5.1 x 5.1 cm. The left kidney measures 11.2 x 5.5 x 5.8 cm. The kidn eys demonstrate normal echogenicity. There is no hydronephrosis in either kidney. No stones identifi ed. The bladder is normal. IMPRESSION: 1. Normal kidneys without hydronephrosis. Reviewed, dictated and finalized at location A. ER HELPER
--- NOTE | ~2023-10-16 | XR_ITS ---
EXAMINATION: XR chest 1V portable DATE: 10/17/2023 10:25 INDICATION: Congestive heart failure TECHNIQUE: frontal view of the chest was obtained. COMPARISON: Chest radiograph dated 10/16/2023 FINDINGS: Unchanged mild linear discoid atelectasis/scarring at the lateral right midlung zone. Additional mild streaky atelectasis at the right lung base. No other airspace opacities, pulmonary edema, pleural ef fusion or pneumothorax. Heart size is within normal limits for AP technique. Median sternotomy wires and mediastinal surgical clips are seen, likely from prior coronary artery bypass grafting. Partially visualized plate and screw fixation for lower cervical anterior spinal fusion. IMPRESSION: 1. Chronic mild discoid atelectasis/scarring at the lateral right midlung zone with additional mild s treaky right basilar atelectasis. Reviewed, dictated and finalized at location A. LOADER AND UNLOADER IMPRESSION: 1. Chronic mild discoid atelectasis/scarring at the lateral right midlung zone with additional mild streaky right basilar atelectasis.
--- NOTE | ~2023-10-16 | XR_ITS ---
EXAMINATION: XR chest 1V portable DATE: 10/16/2023 16:15 INDICATION: Cough and a few days of nausea and vomiting TECHNIQUE: frontal view of the chest was obtained. COMPARISON: Chest radiograph dated 10/13/2023 FINDINGS: Unchanged mild linear discoid atelectasis/scarring at the lateral right midlung zone. The lungs remai n otherwise clear with no new airspace opacities, pulmonary edema, pleural effusion or pneumothorax. The cardiomediastinal silhouette is normal. Median sternotomy wires and mediastinal surgical clips ar e seen, likely from prior coronary artery bypass grafting. Partially visualized plate and screw fixat ion for lower cervical anterior spinal fusion. IMPRESSION: 1. No acute cardiopulmonary disease. Reviewed, dictated and finalized at location A. LOPMENT PLANNER
[2023-10-16 14:52] LABS: Basophils Absolute Auto 0.1 K/mm3 (0.0-0.1); Basophils Percent Auto 0.5 % (0.2-1.2); Eosinophils Percent Auto 0.2 % (0-4.4); Hematocrit 39.8 % (42.0-52.0); Hemoglobin 12.8 g/dL (14.0-18.0); Immature Granulocyte Absolute 0.12 K/mm3 (0.00-0.031); Immature Granulocyte Percent A 0.9 % (0-0.5); Lymphocytes Absolute Auto 1.43 K/mm3 (0.9-3.2); Lymphocytes Percent Auto 10.3 % (18.3-44.2); Mean Corpuscular HGB Conc 32.2 g/dl (32-36); Mean Corpuscular Hemoglobin 29.7 pg (26-34); Mean Corpuscular Volume 92.3 fl (80-100); Mean Platelet Volume 10.4 fl (7.4-10.4); Monocytes Absolute Auto 1.6 K/mm3 (0.1-0.6); Monocytes Percent Auto 11.2 % (2.6-8.5); Neutrophils Absolute Auto 10.7 K/mm3 (1.3-6.7); Neutrophils Percent Auto 76.9 % (45.5-73.1); Platelet Count Result 339 k/mm3 (150-375); Red Blood Count 4.31 M/mm3 (4.6-6.20); Red Cell Distribution Width 14.4 % (11.5-14.5); White Blood Count 13.9 K/mm3 (4.5-10.0)
[2023-10-16 15:03] LABS: Alanine Aminotransferase 16 U/L (6-50); Albumin Level 3.7 g/dL (3.5-5.1); Alkaline Phosphatase 75 U/L (38-126); Anion Gap 16 mmol/L (8-16); Aspartate Amino Transferase 38 U/L (17-59); Blood Urea Nitrogen 45 mg/dL (9-20); Calcium 8.7 mg/dL (8.4-10.2); Carbon Dioxide 14 mmol/L (22-30); Chloride 101 mmol/L (98-107); Estimated CRCL calculation 22 ml/min; Estimated Glomerular Filt Rate 22; Glucose 221 mg/dL (65-110); Lipase 53 U/L (23-300); Potassium 5.3 mmol/L (3.4-5.0); Sodium 131 mmol/L (137-145)
--- NOTE | 2023-10-16 15:41 | ED.NAVMDI ---
HPI - Nausea/Vomiting/Diarrhea General Chief complaint: Nausea/Vomiting/Diarrhea Stated complaint: nausea, body aches, diarrhea Time Seen by Provider: 10/16/23 14:54 History of Present Illness HPI Narrative: Patient is a 78-year-old male with a history of diabetes, hyperlipidemia, hypertension presenting with vomiting and body aches. States that for about the last week he has had diffuse body aches associated with general malaise and cough. He has had diarrhea as well as intermittent nausea and vomiting. States that he really has not had much to eat for the last 5 days. He denies chest or abdominal pain. No shortness of breath. He was here over the weekend and diagnosed with a viral infection was able to go home but unfortunately he has started to feel even worse. Related Data Home Medications Medication Instructions Recorded Confirmed dapagliflozin propanediol 10 mg 10 mg PO DAILY 02/17/22 10/16/23 tablet (Farxiga) spironolactone 25 mg tablet 12.5 mg PO DAILY 02/17/22 10/16/23 clopidogrel 75 mg tablet 75 mg PO DAILY 10/17/23 10/17/23 Allergies Allergy/AdvReac Type Severity Reaction Status Date / Time CRISELDA Inhibitors AdvReac Intermediate Nausea Verified 09/19/23 13:45 Review of Systems Review of Systems: All systems reviewed & are unremarkable except as noted in HPI and below PMFSH Past Medical History Medical History Abscess of right foot Anemia Arthritis Atypical nevi Body mass index (BMI) greater than 25 (08/01/18) Cellulitis of foot, right Cellulitis of right foot Chronic foot ulcer Chronic kidney disease, stage 3 Baseline creatinine as 1.3 and 1.60. Colon cancer screening Coronary artery disease Status post CABG in 2004. Cough due to CRISELDA inhibitor Diabetes Diabetic foot infection (03/03/20) Diabetic infection of right foot Diabetic retinopathy Dietary counseling and surveillance Elevated serum creatinine Encounter for screening colonoscopy Essential hypertension Hyperkalemia Hyperlipidemia Hyperlipidemia associated with type 2 diabetes mellitus Hypertension Hypokalemia Impacted cerumen of both ears Insulin dependent diabetes mellitus Complicated by peripheral neuropathy and neuropathy. Lethargy MSSA bacteremia (~10/2018) Secondary to left 1st toe infection. Nocturia Osteomyelitis Requiring amputation of all toes on the right foot over time as well as left 1st toe amputation. Osteomyelitis Osteopenia of hip Peripheral arterial disease Status post right lower extremity balloon angioplasty. Peripheral vascular disease due to secondary diabetes Pre-operative cardiovascular examination Screening for osteoporosis Screening PSA (prostate specific antigen) Type 2 diabetes mellitus without complications Welcome to Medicare preventive visit Wound of right foot Surgical History Surgical History Amputation toe :Transmetatarsal amputations of all toes on the right foot, some requiring further debridement with split-thickness graft per Dr. Cartagena. :Trans phalangeal amputation of the left 1st toe to the proximal phalanges. History of amputation of toe History of coronary artery bypass graft (~2004) 4 vessel bypass. 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 Hx of coronary artery bypass graft CABG report 2005: CABG x5, Dr. Gabriel. SVG to RCA and posterolateral sequentially, GOMEZ to the Left anterior descending, radial artery to from the GOMEZ to the OM, another segment of radial artery from the GOMEZ to another OM Status post amputation of toe of right foot Status post debridement Multiple debridements of diabetic foot infections on both feet over the years per leigh Hernandez
[2023-10-16 16:23] LABS: Creatine Kinase 153 U/L (55-170); Lipase 47 U/L (23-300)
[2023-10-16 16:24] LABS: INR 1.2; Prothrombin Time 15.7 Seconds (11.1-14.7)
[2023-10-16 16:25] LABS: Lactic Acid Reflex 1.3 mmol/L (0.7-2.0); Partial Thromboplastin Time 40.6 SECONDS (22.3-36.8)
[2023-10-16] MEDS: SODIUM CHLORIDE 0.9% IV 1,000 ML 999 ML IV CONT ×4 (16:25→19:13)
[2023-10-16 16:43] LABS: NT Pro B Type Natriuretic Pept 4820 pg/mL (19.9-100)
--- NOTE | 2023-10-16 16:46 | PC.NURSE ---
made aware of critical troponin test result
[2023-10-16 17:00] LABS: Influenza A QL RT-PCR Negative (Negative); Influenza B QL RT-PCR Negative (Negative); RSV RNA, RT-PCR Negative (Negative); SARS-CoV-2 RNA PCR Negative (Negative)
[2023-10-16 18:27] LABS: Appearance Urine Clear (Clear); Bacteria Urine Rare /hpf; Bilirubin Urine Negative (Negative); Blood Urine Negative (Negative); Color Urine Yellow (Yellow); Glucose Urine UA 3+ mg/dL (Negative); Ketones Urine 1+ mg/dL (Negative); Leukocyte Esterase Ur Negative LEU/UL (Negative); Mucus Urine Present /lpf; Need Manual Microscopic Reviewed; Nitrate Urine Negative (Negative); Protein Urine Trace mg/dL (Negative); RBC Urine 0-2 /hpf (0-2); Specific Grav Ur 1.021 (1.001-1.035); Squamous Epithelial Cell Urine None seen /hpf (Few); WBC Urine 0-5 /hpf; pH Urine 5.5 (5.0-9.0)
[2023-10-16 18:30] LABS: Add Urine Microscopic? YES
--- NOTE | 2023-10-16 18:43 | ECG_ITS ---
Measurements Intervals [place] Rate: 95 P: -16 HI: 120 QRS: 0 QRSD: 94 T: 57 QT: 373 QTc: 469 Interpretive Statements SINUS RHYTHM BORDERLINE ST ABNORMALITY- ANTEROLAT/HIGH LAT LEADS BASELINE ARTIFACT- I, II, III, AVL BORDERLINE ECG COMPARED TO ECG 10/13/2023 16:33:52 NO SIGNIFICANT CHANGES Electronically Signed On 10-16-2023 19:48:51 CONCRETE CRUSHER LOADER OPERATOR by Elijah Deal D.O.
--- NOTE | 2023-10-16 19:34 | PM.IMHP ---
H&P: HPI History of Present Illness Date/Time: 10/16/23 19:34 Chief Complaint: n/v/d Narrative: This is a 78-year-old male with past medical history significant for chronic kidney disease, type diabetes mellitus, coronary artery disease, coronary artery disease bypass graft, congestive heart failure, transmetatarsal amputation, emesis , peripheral vascular disease. patient presents to the emergency room due to nausea ,vomiting, diarrhea, body aches and pains, viral illness. Patient was seen earlier in the emergency room and sent home however returns due to worsening. Preliminary workup was significant for chemistry panel showed a creatinine of 2.3 BUN 45 sodium 132 a troponin of 1.2 brain natriuretic peptide over 4000. Patient has been admitted for further evaluation management and treatment. EXAMINATION: XR chest 1V portable DATE: 10/16/2023 16:15 INDICATION: Cough and a few days of nausea and vomiting TECHNIQUE: frontal view of the chest was obtained. COMPARISON: Chest radiograph dated 10/13/2023 FINDINGS: Unchanged mild linear discoid atelectasis/scarring at the lateral right midlung zone. The lungs remain otherwise clear with no new airspace opacities, pulmonary edema, pleural effusion or pneumothorax. The cardiomediastinal silhouette is normal. Median sternotomy wires and mediastinal surgical clips are seen, likely from prior coronary artery bypass grafting. Partially visualized plate and screw fixation for lower cervical anterior spinal fusion. IMPRESSION: 1. No acute cardiopulmonary disease. Rate 95 MI 120 QRSd 94 QT 373 QTc 469 --[place]-- P -16 QRS 0 T [address] ABNORMALITY- ANTEROLAT/HIGH LAT LEADS BASELINE ARTIFACT- I, II, III, AVL BORDERLINE ECG COMPARED TO ECG 10/13/2023 16:33:52 NO SIGNIFICANT CHANGES Electronically Signed On 10-16-2023 19:48:51 SULKY DRIVER by Review of Systems Review of Systems: n/v/d/ not feeling well. not much of an appetite. Constitutional: Constitutional: Denies chills, Reports fatigue, Denies fever(s), Reports lethargy, Reports malaise, Denies night sweats, Reports poor appetite and Reports weakness Eyes: Eyes: Denies change in vision ENT: Denies dysphagia and Denies odynophagia Cardiovascular: Cardiovascular: Denies chest pain, Denies radiating jaw, neck or arm pain and Denies palpitations Respiratory: Respiratory: Denies cough and Denies excessive phlegm production Gastrointestinal: Gastrointestinal: Denies abdominal pain, Denies dyspepsia, Denies heartburn, Reports diarrhea, Reports nausea and Reports vomiting Genitourinary: Genitourinary: Denies dysuria Musculoskeletal: Musculoskeletal: Denies arthralgias and Denies joint swelling Integumentary/Breasts: Skin/Breast: Denies rash Neurologic: Denies focal weakness and Denies Sensory deficit (Neuro) Psychiatric: Psychiatric: Reports no additional psychiatric complaints and Reports as per HPI Endocrine: Endocrine: Denies fatigue, Denies flushing, Denies heat intolerance, Denies polyphagia, Denies polydipsia and Denies palpitations Hematologic/Lymphatic: Hematologic/Lymphatic: Reports no additional hematologic/lymphatic complaints and Reports as per HPI Allergic/Immunologic: Allergic/Immunologic: Reports no additional allergic/immunologic complaints and Reports as per HPI PMFSH Past Medical History Medical History Abscess of right foot Anemia Arthritis Atypical nevi Body mass index (BMI) greater than 25 (08/01/18) Cellulitis of foot, right Cellulitis of right foot Chronic foot ulcer Chronic kidney disease, stage 3 Baseline creatinine as 1.3 and 1.60. Colon cancer screening Coronary artery disease Status post CABG in 2004. Cough due to CRISELDA inhibitor Diabetes Diabetic foot infection (03/03/20) Diabetic infection of right foot Diabetic retinopathy Dietary counseling and surveillance Elevated serum creatinine Encounter for screening colonoscopy
--- NOTE | 2023-10-16 21:49 | ADMGEN ---
This patient, Chris Handley, was admitted to IMU Room 205-02 @2145. Patient/family oriented to hospital policies and general routines including ID bracelet, bed and alarms, visiting hours, pain management, procedures, bathroom and other care routines, personal items, smoking policy, room service/diet, and visiting hours. Information on how to activate the Rapid Response Team has been discussed. Patient/Family are encouraged to report perceived risks to care and to ask questions if they do not understand what they are told or what they should do.
[2023-10-17] VITALS (13 sets, daily range): BP systolic 124–138; BP diastolic 57–58; PULSE 72–95; RESP 18–22; TEMP 36.1–36.3; O2SAT 96–100
--- NOTE | 2023-10-17 | ECHO_ITS ---
Patient Info Name: Chris Handley Age: 78 years : 1945 Gender: Male Ht: 72 in Wt: 207 lbs BSA: 2.20 m2 HR: 75 bpm BP: 124 / 58 mmHg Heart Rhythm: Sinus Rhythm Technical Quality: Fair Exam Date: 10/17/2023 10:33 AM Exam Location: Echo Lab Exam Room: [facility] Patient Status: Outpatient Admit Date: 10/16/2023 Staff Ordering Physician: Queenie Alanis MD [employer] Administrator: Betzy Doll RDCS Attending Provider: Jerri Montes MD Referring Physician: Annabelle ROSEN; Exam Type: CA echo dop color flow w con Study Info Indications - ALESSANDRA-CKD CAD CABG Complete two-dimensional, color flow and Doppler transthoracic echocardiogram is performed with contrast to opacify the left ventricle and to improve the deliniation of the left ventricle endocardial borders. Contrast/Agitated Saline Contrast/Ag. Saline: Definity Amount: 2.00 ml Administered By: Betzy Doll [facility] Existing IV Access: Yes IV Access Condition: patent with no signs of infiltration Summary 1. Left ventricular chamber dimension is mildly enlarged. 2. Left ventricular systolic function is normal, estimated at 60-65%. 3. There is moderate asymmetric septal increased left ventricular wall thickness. 4. The left ventricular diastolic function is grade I diastolic dysfunction. 5. The basal inferoseptal, mid inferoseptal, basal anteroseptal, and mid anteroseptal are hypokinetic. 6. Left atrial chamber dimension is mildly enlarged. 7. The mitral valve annulus is moderately calcified. 8. There is mild tricuspid valve regurgitation. 9. There is mild pulmonic regurgitation. Left Ventricle Left ventricular chamber dimension is mildly enlarged. Left ventricular systolic function is normal, estimated at 60-65%. There is moderate asymmetric septal increased left ventricular wall thickness. The left ventricular diastolic function is grade I diastolic dysfunction. The basal inferoseptal, mid inferoseptal, basal anteroseptal, and mid anteroseptal are hypokinetic. All other [place] appear normal. Right Ventricle Right ventricular chamber dimension is normal. Right ventricular systolic function is normal. Left Atria Left atrial chamber dimension is mildly enlarged. Right Atria Right atrial chamber dimension is normal. Atrial Septum Intact interatrial septum visualized by color flow imaging. Aortic Valve The aortic valve is probable trileaflet. There is moderate aortic valve sclerosis. There is no aortic valve stenosis. There is trace aortic valve regurgitation. Pulmonic Valve The pulmonic valve is normal. There is no pulmonic valve stenosis. There is mild pulmonic regurgitation. Mitral Valve There is no mitral valve stenosis. There is trace mitral valve regurgitation. The mitral valve annulus is moderately calcified. Tricuspid Valve The tricuspid valve leaflets are normal. There is no significant tricuspid valve stenosis. There is mild tricuspid valve regurgitation. Pericardium/Pleural The pericardium appears normal. There is no pericardial effusion. Inferior Vena Cava Normal inferior vena cava with >50% collapse upon inspiration consistent with normal right atrial pressure, 10 mmHg. Aorta The aortic root size at the sinus of Valsalva is normal. Left Ventricular Outflow Tract Name Value Normal LVOT 2D
[2023-10-17 07:41] LABS: Glucose Point of Care 175 mg/dl (65-105)
[2023-10-17] MEDS: LOVASTATIN 20 MG TABLET 40 MG BY MOUTH (08:17)
[2023-10-17] MEDS: EMPAGLIFLOZIN 25 MG TABLET BY MOUTH (08:18)
[2023-10-17] MEDS: ASPIRIN 81 MG ENTERIC TABLET PO (08:18)
[2023-10-17] MEDS: carvediloL 12.5 MG TABLET PO (08:18)
[2023-10-17] MEDS: PANTOPRAZOLE 40 MG TABLET BY MOUTH (08:18)
[2023-10-17] MEDS: cilostazoL 100 MG TABLET PO ×2 (08:19→17:13)
--- NOTE | 2023-10-17 09:13 | P.PNIM_ITS ---
Progress Note: A&P Assessment and Plan (1) Hypertension: Qualifiers: Hypertension type: essential hypertension Qualified Code(s): I10 - Essential (primary) hypertension Code(s): I10 - Essential (primary) hypertension Status: Chronic (2) Hyperlipidemia: Qualifiers: Hyperlipidemia type: unspecified Qualified Code(s): E78.5 - Hyperlipidemia, unspecified Code(s): E78.5 - Hyperlipidemia, unspecified Status: Chronic (3) CAD (coronary artery disease): Code(s): I25.10 - Atherosclerotic heart disease of [place] coronary artery without angina pectoris Status: Acute (4) Insulin dependent diabetes mellitus: Status: Chronic (5) Non-ST elevation [place] (NSTEMI): Code(s): I21.4 - Non-ST elevation (NSTEMI) myocardial infarction Status: Acute (6) Acute renal failure superimposed on stage 3 chronic kidney disease: Code(s): N17.9 - Acute kidney failure, unspecified; N18.30 - Chronic kidney disease, stage 3 unspecified Status: Acute Plan NSTEMI * serial troponins x3 1.58/1.28/3.45 * EKG: sinus rhythm nonspecific ST abnormality * cardiology consulted * Severe CAD/CABG * Hep gtt * Transfer to [facility] where 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 * Monitor antihypertensive drug therapy. * Avoid NSAIDs. * Routine CMP monitoring GFR. * Monitor electrolytes especially potassium. 5.1 * hold statin Diabetes * Accu-Cheks a.c. HS * sliding scale insulin * hold oral diabetic medications * resume patient's home long-acting * Hemoglobin A1c goal less than 7 pending * lipid panel pending * Diabetic diet * consult to dietitian * encourage lifestyle modifications and weight loss * Optimize Ba inhibitors and statins. * Watch for hypoglycemia/hypoglycemic protocol ordered hypo natremia with hypo-osmolality improving * IV fluids in ED holding for now * NA 131 HTN * Patient was actually hypotensive in the ED given 4L NS * BP stabalized * monitor per unit protocol * resumed entresto per cardiology Code status: Full code per patient DVT prophylaxis: Heparin GTT Stress ulcer prophylaxis: Protonix 40 daily PT/OT notes: Ambulatory Disposition: Patient admitted to IMU for further evaluation and treatment of non STEMI in acute on chronic renal failure patient's troponins have peaked to 3.4 cardiology was consulted and requested transfer to [facility] where patient's manager commission is due to his extensive CAD history with CABG. Transfer initiated weaning for accepting physician. Time Spent With Patient Time with patient: 25 - 35 minutes Subjective Date/time seen: 10/17/23 09:13 Interval history: 10/16: Patient admitted for a/c renal failure likely secondary to dehydration from N/V. Patient CR 2.8 POA f/u pending. Patient with elevated troponin trending up slightly f/u pending could be secondary to ischemic demand from ALESSANDRA cardiology consulted for any further recommendations. Patient was hypotensive in the ED and was given 4L NS last echo showed EF of 25% BP stabilized and resumed Entresto, BNP >4800 will get F/U CXR, and ECHO pending. Patient denies any CP, SOB, N/V, or dizz
--- NOTE | 2023-10-17 09:13 | PM.IMPN ---
Progress Note: A&P Assessment and Plan (1) Hypertension: Qualifiers: Hypertension type: essential hypertension Qualified Code(s): I10 - Essential (primary) hypertension Code(s): I10 - Essential (primary) hypertension Status: Chronic (2) Hyperlipidemia: Qualifiers: Hyperlipidemia type: unspecified Qualified Code(s): E78.5 - Hyperlipidemia, unspecified Code(s): E78.5 - Hyperlipidemia, unspecified Status: Chronic (3) CAD (coronary artery disease): Code(s): I25.10 - Atherosclerotic heart disease of [place] coronary artery without angina pectoris Status: Acute (4) Insulin dependent diabetes mellitus: Status: Chronic (5) Non-ST elevation [place] (NSTEMI): Code(s): I21.4 - Non-ST elevation (NSTEMI) myocardial infarction Status: Acute (6) Acute renal failure superimposed on stage 3 chronic kidney disease: Code(s): N17.9 - Acute kidney failure, unspecified; N18.30 - Chronic kidney disease, stage 3 unspecified Status: Acute Plan NSTEMI serial troponins x3 1.58/1.28/3.45 EKG: sinus rhythm nonspecific ST abnormality cardiology consulted Severe CAD/CABG Hep gtt 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 Monitor antihypertensive drug therapy. Avoid NSAIDs. Routine CMP monitoring GFR. Monitor electrolytes especially potassium. 5.1 hold statin Diabetes Accu-Cheks a.c. HS sliding scale insulin hold oral diabetic medications resume patient's home long-acting Hemoglobin A1c goal less than 7 pending lipid panel pending Diabetic diet consult to dietitian encourage lifestyle modifications and weight loss Optimize Ba inhibitors and statins. Watch for hypoglycemia/hypoglycemic protocol ordered hypo natremia with hypo-osmolality improving IV fluids in ED holding for now NA 131 HTN Patient was actually hypotensive in the ED given 4L NS BP stabalized monitor per unit protocol resumed entresto per cardiology Code status: Full code per patient DVT prophylaxis: Heparin GTT Stress ulcer prophylaxis: Protonix 40 daily PT/OT notes: Ambulatory Disposition: Patient admitted to IMU for further evaluation and treatment of non STEMI in acute on chronic renal failure patient's troponins have peaked to 3.4 cardiology was consulted and requested transfer to [facility] where 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 Transfer initiated weaning for accepting physician. Time Spent With Patient Time with patient: 25 - 35 minutes Subjective Date/time seen: 10/17/23 09:13 Interval history: 10/16: Patient admitted for a/c renal failure likely secondary to dehydration from N/V. Patient CR 2.8 POA f/u pending. Patient with elevated troponin trending up slightly f/u pending could be secondary to ischemic demand from ALESSANDRA cardiology consulted for any further recommendations. Patient was hypotensive in the ED and was given 4L NS last echo showed EF of 25% BP stabilized and resumed Entresto, BNP >4800 will get F/U CXR, and ECHO pending. Patient denies any CP, SOB, N/V, or dizziness at this time. f/U troponin was 3.4 and patient was started on a heparin gtt. As requested by cardiology a transfer to [facility] where his taker off drying kiln is (Dr. Warner) has been initiated. Review of Systems Review of Systems: All systems reviewed & are unremarkable except as noted in HPI and below Exam Narrative: Physical Exam: GENERAL: Alert and oriented x 3. No acute distress. Well-nourished. EYES: EOMI. No scleral icterus. PERRLA. HEENT: Moist mucous membra
[2023-10-17 09:43] LABS: Hemoglobin 12.4 g/dL (14.0-18.0); Mean Corpuscular HGB Conc 31.8 g/dl (32-36); Mean Corpuscular Hemoglobin 29.8 pg (26-34); Mean Corpuscular Volume 93.8 fl (80-100); Mean Platelet Volume 10.1 fl (7.4-10.4); Platelet Count Result 346 k/mm3 (150-375); Red Blood Count 4.16 M/mm3 (4.6-6.20); Red Cell Distribution Width 14.6 % (11.5-14.5); White Blood Count 13.9 K/mm3 (4.5-10.0)
[2023-10-17 09:56] LABS: Alanine Aminotransferase 14 U/L (6-50); Albumin Level 3.1 g/dL (3.5-5.1); Alkaline Phosphatase 78 U/L (38-126); Anion Gap 17 mmol/L (8-16); Aspartate Amino Transferase 48 U/L (17-59); Bilirubin,Total 0.8 mg/dL (0.2-1.3); Blood Urea Nitrogen 38 mg/dL (9-20); Calcium 8.1 mg/dL (8.4-10.2); Carbon Dioxide 9 mmol/L (22-30); Chloride 107 mmol/L (98-107); Estimated CRCL calculation 26 ml/min; Estimated Glomerular Filt Rate 26; Glucose 251 mg/dL (65-110); Magnesium 2.8 mg/dL (1.6-2.3); Potassium 5.1 mmol/L (3.4-5.0); Sodium 133 mmol/L (137-145)
[2023-10-17] MEDS: SACUBITRIL/VALSARTAN 24-26 MG TABLET 1 TAB PO (10:52)
[2023-10-17] MEDS: HEPARIN SODIUM 5,000 UNITS/ML VIAL 5000 UNITS SUB-Q (10:52)
--- NOTE | 2023-10-17 11:13 | PM.CNCAR ---
Assessment and Plan Assessment and plan (1) Non-ST elevation myocardial infarction (NSTEMI): Code(s): I21.4 - Non-ST elevation (NSTEMI) myocardial infarction Status: Acute Assessment and Plan: Patient has nausea and vomiting which is exactly like his presentation 2 years ago in which she presented with a significant non ST-elevation myocardial infarction while in DKA. Will start him on a heparin drip for ACS. Nitroglycerin paste 1 in Q 6 hours. Restart his aspirin, carvedilol, statin, Entresto, spironolactone. 2D echocardiogram with Dopplers ordered and will be reviewed. He has significant peripheral vascular is will as coronary vascular disease including remote history of CABG. His primary life sciences manager is at [facility]. My recommendation is that given the complexity of his vascular disease, he should be transferred to [facility] for further workup evaluation and treatment given the high risk nature of his vasculature. (2) Hypertension associated with diabetes: Code(s): E11.59 - Type 2 diabetes mellitus with other circulatory complications; I15.2 - Hypertension secondary to endocrine disorders Status: Acute Assessment and Plan: Continue home med (3) Peripheral arterial disease: Code(s): I73.9 - Peripheral vascular disease, unspecified Status: Acute Assessment and Plan: Severe disease (4) CAD (coronary artery disease): Code(s): I25.10 - Atherosclerotic heart disease of [place] coronary artery without angina pectoris Status: Acute Assessment and Plan: As detailed above. History of Present Illness History of Present Illness Consult date/time: 10/17/23 11:13 Requesting physician: Richelle Monreal, ECOLOGIST Consult reason: Other (Elevated troponin) Reason For Visit: ALESSANDRA, Elevated Troponin Narrative: Date of service 10/17/2023 Reason consultation: Elevated troponin Requesting provider: Richelle Monreal History patient is a 78-year-old male who presented to the hospital because of decreased appetite vomiting nausea. Symptoms started about a week ago. He had a very similar presentation about 2 years ago and at that time had a significant non ST-elevation myocardial infarction. He had been nauseated for several days prior to coming hospital is troponins were significantly elevated and downtrending. He follows with Dr. Warner at [facility]. He states that he started to feel poorly about a week ago. Came to the hospital on Sunday which was 5 days ago and was told to come back if he had no improvement in his symptoms. He is being treated for a viral illness. He denies any fevers but does feel a bit chilled. He has no chest pain, syncope, presyncope, paroxysmal nocturnal dyspnea, orthopnea, edema or palpitations. He has had some nausea and vomiting. He will roll feels quite weak and lethargic. Review of Systems Review of Systems: All systems reviewed & are unremarkable except as noted in HPI and below Constitutional: Constitutional: Denies body ache(s), Reports fatigue, Reports lethargy and Reports weakness Eyes: Eyes: Denies blurry vision ENT: Denies Normal hearing present Cardiovascular: Cardiovascular: Denies chest pain Respiratory: Respiratory: Denies chest congestion and Denies dyspnea Gastrointestinal: Gastrointestinal: Reports nausea and Reports vomiting Genitourinary: Genitourinary: Denies hematuria Musculoskeletal: Musculoskeletal: Denies back pain Integumentary/Breasts: Skin/Breast: Denies pruritus Neurologic: Denies Abnormal speech present Psychiatric: Psychiatric: Denies anxiety Endocrine: Endocrine: Denies excessive sweating Hematologic/Lymphatic: Hematologic/Lymphatic: Denies easy bleeding Allergic/Immunologic: Allergic/Immunologic: Denies GI upset with certain foods PMFSH Past Medical History Medical History Abscess of right foot Anemia Arthritis Atypical
[2023-10-17] MEDS: PERFLUTREN LIPID MICROSPHERES 1.5 ML VIAL DILUTED TO 10 ML TOTAL VOLUME IV PUSH (11:25)
[2023-10-17 11:36] LABS: Glucose Point of Care 245 mg/dl (65-105)
[2023-10-17] MEDS: HEPARIN SODIUM 5,000 UNITS/ML VIAL 4000 UNITS IV PUSH (11:56)
[2023-10-17] MEDS: HEPARIN SOD/D5W 100 UNITS/ML 25,000 UNITS/250 ML BAG 10 UNITS IV CONT (11:57)
[2023-10-17] MEDS: NITROGLYCERIN OINTMENT 1 INCH DOSE TRANSDERM ×2 (12:01→17:17)
--- NOTE | 2023-10-17 13:09 | IVDEFINITY ---
Prior to administration of IV Definity the patient was educated on the risks and benefits of the imaging enhancing agent including potential adverse side effects. The patient verbalized understanding. Allergies were verified. No exclusion criteria were identified and at least one of the following inclusion criteria were met: 1) physician request, 2) patient technically difficult to image (per the [place] Society of Echocardiography guidelines of two or more segments not discernable within the apical view), or 3) questionable left ventricular function. ?
[2023-10-17 13:51] LABS: INR 1.1; Prothrombin Time 15.3 Seconds (11.1-14.7)
[2023-10-17 13:52] LABS: Partial Thromboplastin Time 46.3 SECONDS (22.3-36.8)
--- NOTE | 2023-10-17 14:22 | PC.NURSE ---
Dr. Pink stopped by to see patient. Notified him of critical troponin of 3.45. Orders for heparin drip recieved.
[2023-10-17] MEDS: VANCOMYCIN 1,250 MG/NS 250 ML 1,250 MG/250 ML BAG 166.67 MG IVPB (15:37)
--- NOTE | 2023-10-17 16:00 | P.TS_ITS ---
Transfer Discharge Sum: Prov Provider Date of admission: 10/16/23 19:21 Primary care physician: Vick Segura PA-C Admitting clinician: Jerri Montes MD Attending physician on admission: Jerri Montes Consults: 10/17/23 Consult to Physician Routine Comment: Called office and notified them of consult Consulting Provider: Suad Redd call center support consultant/MD group to consult: Cardiology Reason for consultation: NSTEMI Has provider been notified: Yes Attending physician on discharge: Mely Montague Discharging clinician: Richelle Monreal Anticipated date of transfer: 10/17/23 Receiving physician/facility: [place], [place] DS: Admitting Diagnosis Discharge Date 10/17/2023 Admitting Diagnosis NSTEMI DS: Discharge Diagnosis Discharge Diagnosis (1) Hypertension: Qualifiers: Hypertension type: essential hypertension Qualified Code(s): I10 - Essential (primary) hypertension Code(s): I10 - Essential (primary) hypertension Status: Chronic (2) Hyperlipidemia: Qualifiers: Hyperlipidemia type: unspecified Qualified Code(s): E78.5 - Hyperlipidemia, unspecified Code(s): E78.5 - Hyperlipidemia, unspecified Status: Chronic (3) CAD (coronary artery disease): Code(s): I25.10 - Atherosclerotic heart disease of [place] coronary artery without angina pectoris Status: Acute (4) Insulin dependent diabetes mellitus: Status: Chronic (5) Non-ST elevation [place] (NSTEMI): Code(s): I21.4 - Non-ST elevation (NSTEMI) myocardial infarction Status: Acute (6) Acute renal failure superimposed on stage 3 chronic kidney disease: Code(s): N17.9 - Acute kidney failure, unspecified; N18.30 - Chronic kidney disease, stage 3 unspecified Status: Acute Plan NSTEMI * serial troponins x3 1.58/1.28/3.45 * EKG: sinus rhythm nonspecific ST abnormality * cardiology consulted * Severe CAD/CABG * Hep gtt * Transfer to [facility] 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 * Monitor antihypertensive drug therapy. * Avoid NSAIDs. * Routine CMP monitoring GFR. * Monitor electrolytes especially potassium. 5.1 * hold statin Diabetes * Accu-Cheks a.c. HS * sliding scale insulin * hold oral diabetic medications * resume patient's home long-acting * Hemoglobin A1c goal less than 7 pending * lipid panel pending * Diabetic diet * consult to dietitian * encourage lifestyle modifications and weight loss * Optimize Ba inhibitors and statins. * Watch for hypoglycemia/hypoglycemic protocol ordered hypo natremia with hypo-osmolality improving * IV fluids in ED holding for now * NA 131 HTN * Patient was actually hypotensive in the ED given 4L NS * BP stabalized * monitor per unit protocol * resumed entresto per cardiology Code status: Full code per patient DVT prophylaxis: Heparin GTT Stress ulcer prophylaxis: Protonix 40 daily PT/OT notes: Ambulatory Disposition: Patient admitted to IMU for further evaluation and treatment
--- NOTE | 2023-10-17 16:00 | PM.TDS ---
Transfer Discharge Sum: Prov Provider Date of admission: 10/16/23 19:21 Primary care physician: Vick Segura PA-C Admitting clinician: Jerri Montes MD Attending physician on admission: Jerri Montes Consults: 10/17/23 Consult to Physician Routine Comment: Called office and notified them of consult Consulting Provider: Suad Redd score caller/MD group to consult: Cardiology Reason for consultation: NSTEMI Has provider been notified: Yes Attending physician on discharge: Mely Montague Discharging clinician: Richelle Monreal Anticipated date of transfer: 10/17/23 Receiving physician/facility: [place], [place] DS: Admitting Diagnosis Discharge Date 10/17/2023 Admitting Diagnosis NSTEMI DS: Discharge Diagnosis Discharge Diagnosis (1) Hypertension: Qualifiers: Hypertension type: essential hypertension Qualified Code(s): I10 - Essential (primary) hypertension Code(s): I10 - Essential (primary) hypertension Status: Chronic (2) Hyperlipidemia: Qualifiers: Hyperlipidemia type: unspecified Qualified Code(s): E78.5 - Hyperlipidemia, unspecified Code(s): E78.5 - Hyperlipidemia, unspecified Status: Chronic (3) CAD (coronary artery disease): Code(s): I25.10 - Atherosclerotic heart disease of [place] coronary artery without angina pectoris Status: Acute (4) Insulin dependent diabetes mellitus: Status: Chronic (5) Non-ST elevation [place] (NSTEMI): Code(s): I21.4 - Non-ST elevation (NSTEMI) myocardial infarction Status: Acute (6) Acute renal failure superimposed on stage 3 chronic kidney disease: Code(s): N17.9 - Acute kidney failure, unspecified; N18.30 - Chronic kidney disease, stage 3 unspecified Status: Acute Plan NSTEMI serial troponins x3 1.58/1.28/3.45 EKG: sinus rhythm nonspecific ST abnormality cardiology consulted Severe CAD/CABG Hep gtt 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 Monitor antihypertensive drug therapy. Avoid NSAIDs. Routine CMP monitoring GFR. Monitor electrolytes especially potassium. 5.1 hold statin Diabetes Accu-Cheks a.c. HS sliding scale insulin hold oral diabetic medications resume patient's home long-acting Hemoglobin A1c goal less than 7 pending lipid panel pending Diabetic diet consult to dietitian encourage lifestyle modifications and weight loss Optimize Ab inhibitors and statins. Watch for hypoglycemia/hypoglycemic protocol ordered hypo natremia with hypo-osmolality improving IV fluids in ED holding for now NA 131 HTN Patient was actually hypotensive in the ED given 4L NS BP stabalized monitor per unit protocol resumed entresto per cardiology Code status: Full code per patient DVT prophylaxis: Heparin GTT Stress ulcer prophylaxis: Protonix 40 daily PT/OT notes: Ambulatory Disposition: Patient admitted to IMU for further evaluation and treatment of non STEMI in acute on chronic renal failure patient's troponins have peaked to 3.4 cardiology was consulted and requested transfer to [facility] where 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 Transfer initiated weaning for accepting physician. Transfer Discharge Sum: Med Medications Active and Home Medications: Home Medications pen needle, diabetic 32 gauge x 1/4 (BD Ultra-Fine Micro Pen Needle) #100 ea 08/15/21 [Rx Confirmed 10/16/23] aspirin 81 mg tablet,delayed release 81 mg PO QAM #7 tabs 12/24/21 [Rx Confirmed 10/16/23] blood sugar diagnostic (Shoutlet Ultra Kasey
[2023-10-17 16:13] LABS: Glucose Point of Care 275 mg/dl (65-105)
[2023-10-17] MEDS: VANCOMYCIN 1,000 MG/NS 250 ML 1,000 MG/250 ML BAG 250 MG IVPB (17:12)
[2023-10-17] MEDS: INSULIN ASPART (*BKC) 100 UNITS/ML SUB-Q (17:13)
== END 2023-10-17 18:04 | disposition short-term general hospital (02) ==
LOC: ANHED 15:00 → ANHIMU 21:04
PROVIDERS: Internal Medicine Cardiovascular Disease; Nurse Practitioner Family; Admitting Provider General Practice; Emergency Provider Emergency Medicine; PCP Physician Assistant; Visit Provider General Practice
DX: I21.4 Non-ST elevation (NSTEMI) myocardial infarction (principal); N17.9 Acute kidney failure, unspecified; I13.0 Hypertensive heart and chronic kidney disease with heart failure and stage 1 through stage 4 chronic kidney disease, or unspecified chronic kidney disease; I50.9 Heart failure, unspecified; E11.22 Type 2 diabetes mellitus with diabetic chronic kidney disease; N18.30 Chronic kidney disease, stage 3 unspecified; E87.1 Hypo-osmolality and hyponatremia; I35.1 Nonrheumatic aortic (valve) insufficiency; I35.8 Other nonrheumatic aortic valve disorders; I37.1 Nonrheumatic pulmonary valve insufficiency; R79.89 Other specified abnormal findings of blood chemistry; E11.59 Type 2 diabetes mellitus with other circulatory complications; I15.2 Hypertension secondary to endocrine disorders; R91.8 Other nonspecific abnormal finding of lung field; I25.10 Atherosclerotic heart disease of native coronary artery without angina pectoris; Z95.1 Presence of aortocoronary bypass graft; Z20.822 Contact with and (suspected) exposure to COVID-19; E11.319 Type 2 diabetes mellitus with unspecified diabetic retinopathy without macular edema; E11.42 Type 2 diabetes mellitus with diabetic polyneuropathy; E11.51 Type 2 diabetes mellitus with diabetic peripheral angiopathy without gangrene; Z98.62 Peripheral vascular angioplasty status; E78.5 Hyperlipidemia, unspecified; Z89.431 Acquired absence of right foot; Z89.411 Acquired absence of right great toe; Z79.84 Long term (current) use of oral hypoglycemic drugs; Z79.01 Long term (current) use of anticoagulants; Z79.899 Other long term (current) drug therapy; Z79.4 Long term (current) use of insulin
CPT/HCPCS: 36415; 71045; 76775; 80053; 81001; 82550; 82948; 83605; 83690; 83735; 83880; 84484; 85025; 85027; 85610; 85730; 87040; 87077; 87181; 87637; 93005; 96360; 96361; 96372; 96374; 96375; 96376; 99285; A9270; C8929; G0378; J1644; J1815; J3370; J7030; Q9957

== ENCOUNTER 2024-02-13 09:47 | Outpatient (CLI) | payer MEDICARE, SELFPAY ==
--- NOTE | ~2024-02-13 | MR_ITS ---
EXAMINATION: MR foot LT wo con DATE: 02/13/2024 10:44 INDICATION: Left foot pain and open wound at the lateral left foot TECHNIQUE: Magnetic resonance imaging (MRI) of the left foot excluding the posterior most hindfoot wa s performed without intravenous contrast. Sequences included sagittal T1-weighted FSE, sagittal fluid sensitive FSE STIR, coronal PD-weighted FS FSE, coronal T1-weighted FSE, axial PD-weighted FS FSE, a xial T1-weighted FS FSE and axial PD-weighted FSE. COMPARISON: None FINDINGS: Amputation of the toes foot transmetatarsal amputations distal aspect of the first-fourth metatarsals and across the proximal metadiaphyseal region of the fifth metatarsal. Change of osteomyelitis thoug h much of the fourth metatarsal with foci of intramedullary gas and replacement of the normal T1 hype rintense marrow signal throughout the diaphysis and proximal metadiaphyseal region of the fourth meta tarsal. There appears to be associated periosteal thickening along the diaphysis. Additional region o f likely osteomyelitis at the lateral aspect of the remaining base of the fourth metatarsal underlyin g a small skin ulceration. This characterized by focal thinning of the signal intensity lateral corti deana line and underlying prominent T2 hyperintense marrow edema and geographic loss of T1 marrow fat s ignal. No abscess. No fracture or other pathologic marrow replacing process. 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 Physiologic amount fluid in the joint space of the foot. There is mil d osteoarthritis at the tibiotalar joint with subarticular edema-like signal change along the medial rim of the talar dome. There is T2 hyperintense synovitis and mild surrounding soft tissue edema aamir g the margins of the anterior recess of the tibiotalar joint. There is decreased T1 and T2 signal wit hin the recess suggestive of a complex effusion which could be due to either proteinaceous fluid, blo od products with differential also including pigmented villonodular synovitis. IMPRESSION: 1. Osteomyelitis at the lateral aspect of the remaining base of the fifth metatarsal and more promine ntly throughout the diaphysis and portions of the proximal metaphysis of the fourth metatarsal. 2. Edema and synovitis at the margins of the anterior recess of the tibiotalar joint space with centr al low T1 and T2 signal which suggests possibility of a complex effusion in the setting of either sep tic arthritis or hemarthrosis with differential also including pigmented villonodular synovitis. Coul d consider diagnostic arthrocentesis. Reviewed, dictated and finalized at location B. IMPRESSION: 1. Osteomyelitis at the lateral aspect of the remaining base of the fifth metat arsal and more prominently throughout the diaphysis and portions of the proxima l metaphysis of the fourth metatarsal. 2. Edema and synovitis at the margins of the anterior recess of the tibiotalar joint space with central low T1 and T2 signal which suggests possibility of a c omplex effusion in the setting of either septic arthritis or hemarthrosis with differential also including pigmented villonodular synovitis. Could consider di agnostic arthrocentesis.
== END 2024-02-13 09:48 ==
LOC: GOSHIMG 09:49
PROVIDERS: PCP Physician Assistant; Visit Provider Nurse Practitioner Family
DX: M86.172 Other acute osteomyelitis, left ankle and foot (principal); M65.872 Other synovitis and tenosynovitis, left ankle and foot; R60.0 Localized edema
CPT/HCPCS: 73718

== ENCOUNTER 2024-03-22 11:53 | Outpatient (CLI) | payer MEDICARE, SELFPAY ==
--- NOTE | 2024-03-22 | ECG_ITS ---
Test Date: 2024-03-22 12:21:52 Measurements Intervals [place] Rate: 88 P: -13 UT: 135 QRS: 19 QRSD: 96 T: 78 QT: 369 QTc: 447 Interpretive Statements SINUS RHYTHM SEPTAL MYOCARDIAL INFARCTION , PROBABLY OLD [40+ ms Q WAVE IN V1/V2] No previous ECG available for comparison Electronically Signed On 03-23-2024 13:33:56 CDT by Jax Escoto M.D.
== END 2024-03-22 11:54 | disposition home or self-care (01) ==
LOC: ANHCARD 12:02
PROVIDERS: PCP Nurse Practitioner
DX: Z01.810 Encounter for preprocedural cardiovascular examination (principal); Z13.1 Encounter for screening for diabetes mellitus; Z13.0 Encounter for screening for diseases of the blood and blood-forming organs and certain disorders involving the immune mechanism; I25.2 Old myocardial infarction
CPT/HCPCS: 93005

== ENCOUNTER 2024-04-04 07:36 | Outpatient (RCR) | payer MEDICARE, SELFPAY ==
--- NOTE | ~2024-04-04 | XR_ITS ---
EXAMINATION: XR chest PICC line DATE: 04/04/2024 08:22 INDICATION: Central line placement. TECHNIQUE: A single frontal view of the chest was obtained. COMPARISON: Chest single view 10/17/23 FINDINGS: There is mild atelectasis in the lower lung zones. No pleural effusion or pneumothorax. The heart size is normal. Median sternotomy wires and mediastinal surgical clips are seen, likely from p rior coronary artery bypass grafting. There are changes of anterior fusion procedure in cervical spin e. A left upper extremity peripherally inserted central venous catheter (PICC) is seen with tip at th e superior cavoatrial junction. IMPRESSION: 1. PICC tip at the superior cavoatrial junction. 2. Mild atelectasis in the lower lung zones. Reviewed, dictated and finalized at location A.
== END 2024-07-03 23:59 | disposition home or self-care (01) ==
LOC: ANHVASCINF 07:36
PROVIDERS: PCP Nurse Practitioner
DX: M86.672 Other chronic osteomyelitis, left ankle and foot (principal)
CPT/HCPCS: 36569; 99202; C1751; G0463

== ENCOUNTER 2025-04-01 12:40 | Outpatient (CLI) | payer MEDICARE, SELFPAY ==
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
== END 2025-04-01 12:41 | disposition home or self-care (01) ==
LOC: GOSHIMG 12:40
PROVIDERS: PCP Psychiatry & Neurology Neurology; Visit Provider Psychiatry & Neurology Neurology
DX: I69.352 Hemiplegia and hemiparesis following cerebral infarction affecting left dominant side (principal); R27.0 Ataxia, unspecified; Z87.828 Personal history of other (healed) physical injury and trauma
CPT/HCPCS: 70551

== ENCOUNTER 2025-07-20 19:23 | Emergency (ER) | payer MEDICARE, SELFPAY ==
[2025-07-20 19:52] VITALS: BP 120/47; PULSE 93; RESP 21; TEMP 37.2; O2SAT 99
--- OUTSIDE RECORDS SUMMARY | 2025-07-20 20:25 | XMS_ITS | Encounter Summary ---
Author Organization [facility] Address [address] [place] [address] Care Team Providers Care Booking Prizer Name Role Phone Von Corbin MD Primary Care Provider Radha faria Encounter Details Date Type Department Care Team (Late st Contact Info) Description 01/18/2004 Outpatient Historical 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
--- OUTSIDE RECORDS SUMMARY | 2025-07-20 20:25 | XMS_ITS | Encounter Summary ---
Author Organization [facility] Address 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
--- OUTSIDE RECORDS SUMMARY | 2025-07-20 20:25 | XMS_ITS | Encounter Summary ---
Author Organization [facility] Address 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
--- OUTSIDE RECORDS SUMMARY | 2025-07-20 20:25 | XMS_ITS | Encounter Summary ---
Author Organization [facility] Address 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
--- OUTSIDE RECORDS SUMMARY | 2025-07-20 20:25 | XMS_ITS | Encounter Summary ---
Author Organization [facility] Address 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
--- OUTSIDE RECORDS SUMMARY | 2025-07-20 20:25 | XMS_ITS | Encounter Summary ---
Author Organization [facility] Address 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
--- OUTSIDE RECORDS SUMMARY | 2025-07-20 20:25 | XMS_ITS | Encounter Summary ---
Author Organization [facility] Address 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
--- OUTSIDE RECORDS SUMMARY | 2025-07-20 20:25 | XMS_ITS | Encounter Summary ---
Author Organization [facility] Address 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
--- OUTSIDE RECORDS SUMMARY | 2025-07-20 20:25 | XMS_ITS | Encounter Summary ---
Author Organization [facility] Address 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
--- OUTSIDE RECORDS SUMMARY | 2025-07-20 20:25 | XMS_ITS | Encounter Summary ---
Author Organization [facility] Address 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
--- OUTSIDE RECORDS SUMMARY | 2025-07-20 20:25 | XMS_ITS | Encounter Summary ---
Author Organization [facility] Address 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
--- OUTSIDE RECORDS SUMMARY | 2025-07-20 20:25 | XMS_ITS | Encounter Summary ---
Author Organization [facility] Address 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
--- OUTSIDE RECORDS SUMMARY | 2025-07-20 20:25 | XMS_ITS | Encounter Summary ---
Author Organization [facility] Address 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
--- OUTSIDE RECORDS SUMMARY | 2025-07-20 20:25 | XMS_ITS | Encounter Summary ---
Author Organization [facility] Address 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
--- OUTSIDE RECORDS SUMMARY | 2025-07-20 20:25 | XMS_ITS | Encounter Summary ---
Author Organization [facility] Address 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
--- OUTSIDE RECORDS SUMMARY | 2025-07-20 20:25 | XMS_ITS | Encounter Summary ---
Author Organization [facility] Address 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
--- OUTSIDE RECORDS SUMMARY | 2025-07-20 20:25 | XMS_ITS | Encounter Summary ---
Author Organization [employer] Address 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
--- OUTSIDE RECORDS SUMMARY | 2025-07-20 20:25 | XMS_ITS | Encounter Summary ---
Author Organization [facility] Address [address] [place] [address] Care Team Providers Care Clinic Assistant Name Role Phone Von Corbin MD Primary Care Provider Radha faria Encounter Details Date Type Department Care Team (Late st Contact Info) Description 11/27/2003 Outpatient Historical [facility] Primary Care - [address] [place] [phone] Von Corbin MD NO ADDRESS ON FILE Social History Tobacco Use Types Packs/Day Years Used Date Smoking Tobacco: Never Assessed Sex and Gender Information Value Date Recorded Sex Assigned at Not on file Legal Sex Male 4:32 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
--- OUTSIDE RECORDS SUMMARY | 2025-07-20 20:25 | XMS_ITS | Encounter Summary ---
Author Organization [employer] Address 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
--- OUTSIDE RECORDS SUMMARY | 2025-07-20 20:25 | XMS_ITS | Encounter Summary ---
Author Organization [employer] Address [address] [place] [address] Care Team Providers Care Drums Teacher Name Role Phone Von Corbin MD Primary Care Provider Radha faria Encounter Details Date Type Department Care Team (Late st Contact Info) Description 12/25/2002 Outpatient [facility] [address] [place] [address] 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
--- OUTSIDE RECORDS SUMMARY | 2025-07-20 20:25 | XMS_ITS | Encounter Summary ---
Author Organization [employer] Address [address] [place] [address] Care Team Providers Care Tobacco Classer Name Role Phone Von Corbin MD Primary Care Provider Radha faria Encounter Details Date Type Department Care Team (Late st Contact Info) Description 12/04/2002 Outpatient [facility] [address] [place] [address] 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
--- OUTSIDE RECORDS SUMMARY | 2025-07-20 20:25 | XMS_ITS | Encounter Summary ---
Author Organization [employer] Address [address] [place] [address] Care Team Providers Care Professor/Nurse Anesthetist Name Role Phone Von Corbin MD Primary Care Provider Radha faria Encounter Details Date Type Department Care Team (Late st Contact Info) Description 02/09/2003 Outpatient [facility] [address] [place] [address] 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
--- OUTSIDE RECORDS SUMMARY | 2025-07-20 20:25 | XMS_ITS | Encounter Summary ---
Author Organization [facility] Address [address] [place] [address] Care Team Providers Care Fire Observer Name Role Phone Von Corbin MD Primary Care Provider Radha faria Encounter Details Date Type Department Care Team (Late st Contact Info) Description 01/22/2003 Outpatient Historical [facility] Primary Care - [address] [place] [phone] Von Corbin MD NO ADDRESS ON FILE Social History Tobacco Use Types Packs/Day Years Used Date Smoking Tobacco: Never Assessed Sex and Gender Information Value Date Recorded Sex Assigned at Not on file Legal Sex Male 4:32 AM CLINIC DIRECTOR Gender Identity Not on file Sexual Orientation Not on file documented as of this encounter Plan of Treatment Not on file documented as of this encounter Visit Diagnoses Not on filedocumented in this encounter Care Teams Fire Observer Relationship Specialty Start Date End Date Von Corbin MD NO ADDRESS ON FILE PCP - General 06/24/01 10/30/16 documented as of this encounter
--- OUTSIDE RECORDS SUMMARY | 2025-07-20 20:25 | XMS_ITS | Encounter Summary ---
Author Organization [facility] Address 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
--- OUTSIDE RECORDS SUMMARY | 2025-07-20 20:25 | XMS_ITS | Encounter Summary ---
Author Organization [email or web address] Address 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
--- OUTSIDE RECORDS SUMMARY | 2025-07-20 20:25 | XMS_ITS | Encounter Summary ---
Author Organization [facility] Address [address] [place] [address] Care Team Providers Care Business Systems Consultant Name Role Phone Von Corbin MD Primary Care Provider Radha faria Encounter Details Date Type Department Care Team (Late st Contact Info) Description 12/10/2002 Outpatient Historical [facility] Primary Care - [address] [place] [phone] Von Corbin MD NO ADDRESS ON FILE Social History Tobacco Use Types Packs/Day Years Used Date Smoking Tobacco: Never Assessed Sex and Gender Information Value Date Recorded Sex Assigned at Not on file Legal Sex Male 4:32 AM BUSINESS REPRESENTATIVE Gender Identity Not on file Sexual Orientation Not on file documented as of this encounter Plan of Treatment Not on file documented as of this encounter Visit Diagnoses Not on filedocumented in this encounter Care Teams Business Systems Consultant Relationship Specialty Start Date End Date Von Corbin MD NO ADDRESS ON FILE PCP - General 06/24/01 10/30/16 documented as of this encounter
--- OUTSIDE RECORDS SUMMARY | 2025-07-20 20:25 | XMS_ITS | Encounter Summary ---
Author Organization [facility] Address [address] [place] [address] Care Team Providers Care Speeder Machine Operator Name Role Phone Von Corbin MD Primary Care Provider Radha faria Encounter Details Date Type Department Care Team (Late st Contact Info) Description 05/10/2001 Outpatient Historical [facility] Primary Care - [address] [place] [phone] Von Corbin MD NO ADDRESS ON FILE Social History Tobacco Use Types Packs/Day Years Used Date Smoking Tobacco: Never Assessed Sex and Gender Information Value Date Recorded Sex Assigned at Not on file Legal Sex Male 4:32 AM EXTRACTIONS TECHNOLOGIST Gender Identity Not on file Sexual Orientation Not on file documented as of this encounter Plan of Treatment Not on file documented as of this encounter Visit Diagnoses Not on filedocumented in this encounter Care Teams Speeder Machine Operator Relationship Specialty Start Date End Date Von Corbin MD NO ADDRESS ON FILE PCP - General 06/24/01 10/30/16 documented as of this encounter
--- OUTSIDE RECORDS SUMMARY | 2025-07-20 20:25 | XMS_ITS | Encounter Summary ---
Author Organization [facility] Address 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
--- OUTSIDE RECORDS SUMMARY | 2025-07-20 20:25 | XMS_ITS | Encounter Summary ---
Author Organization [facility] Address [address] [place] [address] Care Team Providers Care Office Technology Instructor Name Role Phone Von Corbin MD Primary Care Provider Radha faria Encounter Details Date Type Department Care Team (Late st Contact Info) Description 01/27/1999 Outpatient Historical [facility] Primary Care - [address] [place] [phone] Von Corbin MD NO ADDRESS ON FILE Social History Tobacco Use Types Packs/Day Years Used Date Smoking Tobacco: Never Assessed Sex and Gender Information Value Date Recorded Sex Assigned at Not on file Legal Sex Male 4:32 AM THUMB SEWER Gender Identity Not on file Sexual Orientation Not on file documented as of this encounter Plan of Treatment Not on file documented as of this encounter Visit Diagnoses Not on filedocumented in this encounter Care Teams Office Technology Instructor Relationship Specialty Start Date End Date Von Corbin MD NO ADDRESS ON FILE PCP - General 06/24/01 10/30/16 documented as of this encounter
--- OUTSIDE RECORDS SUMMARY | 2025-07-20 20:25 | XMS_ITS | Encounter Summary ---
Author Organization [facility] Address 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
--- OUTSIDE RECORDS SUMMARY | 2025-07-20 20:25 | XMS_ITS | Encounter Summary ---
Author Organization [facility] Address [address] [place] [address] Care Team Providers Care Manager Of Selection And Assessment Name Role Phone Von Corbin MD Primary Care Provider Radha faria Encounter Details Date Type Department Care Team (Late st Contact Info) Description 04/02/2000 Outpatient Historical [facility] Primary Care - [address] [place] [phone] Von Corbin MD NO ADDRESS ON FILE Social History Tobacco Use Types Packs/Day Years Used Date Smoking Tobacco: Never Assessed Sex and Gender Information Value Date Recorded Sex Assigned at Not on file Legal Sex Male 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
--- OUTSIDE RECORDS SUMMARY | 2025-07-20 20:26 | XMS_ITS | Encounter Summary ---
Author Organization [facility] Address [address] [place] [address] Care Team Providers Care Explosives Engineer Name Role Phone Von Corbin MD Primary Care Provider Radha faria Encounter Details Date Type Department Care Team (Late st Contact Info) Description 04/24/2007 Orders Only [facility] Primary Care - [address] [place] [address] Von Corbin MD NO ADDRESS ON FILE Social History Tobacco Use Types Packs/Day Years Used Date Smoking Tobacco: Never Assessed Sex and Gender Information Value Date Recorded Sex Assigned at Not on file Legal Sex Male 4:32 AM GYM ATTENDANT Gender Identity Not on file Sexual Orientation Not on file documented as of this encounter Progress Notes * Von Corbin MD - 12/27/2007 5:13 PM CDT TIME:08:33 am PATIENT`S HOME PHONE: PATIENT`S WORK PHONE: PATIENT`S INSURANCE: [facility] WHO TOOK THE CALL: Markel Sifuentes W GENERAL INFORMATION PATIENT STATUS: Established Patient. LAST VISIT: 09-24-06 PCP: Shaquille. ALTERNATIVE PHONE NUMBER: [phone] WHO CALLED: Patient called. PROBLEMS: big red raised area on thigh. h/o staph infection. taking abx septra. no better. very painful. SECTION 1: REQUESTED ACTION arvind 04/24/07 at 08:35 am: wants appt today...........markel DOCTOR`S RESPONSE: conwpg 04/24/07 at 09:17 am see me noon FINAL ACTION: nicole 04/24/07 at 09:40 am Spoke with patient 04/24/07 at 09:40 am. Booked appointment: 12pm-----diane Electronically Signed by: Diane Gilmore on Tuesday, April 24, 2007 * Von Corbin MD - 12/27/2007 5:08 PM CDT TEMPERATURE: 97.6??f Oral WEIGHT: 219lbs BLOOD PRESSURE: 120/60 Right Arm Sitting NURSE NAME: Elizabeth Correia K ALLERGIES: No known drug allergies. MEDICATIONS: Medication list current. CHIEF COMPLAINT Patient complains of. infection HISTORY: Flaquito is seen acutely today because of worsening lesion on his buttock. He has had prior MRSA lesions. He was given Septra 2 days ago and does not feel he has made much improvement. No fever or chills or systemic symptoms are noted. He previously had to have some of these lanced. PHYSICAL EXAMINATION: The right buttock demonstrates a large irregular shaped erythema lesion with a single scabbed opening. The area is exquisitely tender. No evidence of fluctuants and no drainage can be expressed. No evidence of lymphangitis. The anterior thigh is unremarkable despite complains of ???funny feelings?? . ASSESSMENT/PLAN: 682.6-OTHER CELLULITIS AND ABSCESS The area does not require drainage at this point. He is to use warm compresses and we will broaden his antibiotic coverage with Clindamycin. Given his prior history, we will have him resume the use of Bactroban nasal ointment and HibiClens q.d. MEDICATIONS: CLINDAMYCIN HCL ORAL CAPSULE CONVENTIONAL 300 MG, 1 Four Times A Day, 28 Dispensed, status: NEW PRESCRIPTION, 04/24/2007. BACTROBAN EXTERNAL OINTMENT 2 % GRAMS, apply intranasally bid, 22 Dispensed, status: CONTINUED, 04/24/2007. Electronically Signed by: Von Corbin MD on April documented in this encounter Plan of Treatment Not on file documented as of this encounter Visit Diagnoses Not on filedocumented in this encounter Care Teams Explosives Engineer Relationship Specialty Start Date End Date Von Corbin MD NO ADDRESS ON FILE PCP - General 06/24/01 10/30/16 documented as of this encounter
--- OUTSIDE RECORDS SUMMARY | 2025-07-20 20:26 | XMS_ITS | Encounter Summary ---
Author Organization [facility] Address [address] [place] [address] Care Team Providers Care Radio Adjuster Name Role Phone Von Corbin MD Primary Care Provider Radha faria Encounter Details Date Type Department Care Team (Late st Contact Info) Description 04/19/2007 Orders Only [facility] Primary Care - [address] [place] [address] Von Corbin MD NO ADDRESS ON FILE Social History Tobacco Use Types Packs/Day Years Used Date Smoking Tobacco: Never Assessed Sex and Gender Information Value Date Recorded Sex Assigned at Not on file Legal Sex Male 4:32 AM MANAGER DEVELOPMENTAL Gender Identity Not on file Sexual Orientation Not on file documented as of this encounter Progress Notes * Von Corbin MD - 12/27/2007 4:19 PM CDT TIME:02:34 pm PATIENT`S HOME PHONE: PATIENT`S WORK PHONE: PATIENT`S INSURANCE: [facility] WHO TOOK THE CALL: Diane Gilmore GENERAL INFORMATION PATIENT STATUS: Established Patient. LAST VISIT: PCP: paris WHO CALLED: Patient called. ALTERNATIVE PHONE NUMBER: [phone] CURRENT ALLERGY LIST: NO KNOWN ALLERGIES SECTION 1: REQUESTED ACTION nicole 04/19/07 at 02:34 pm: MEDICATION REQUEST: in hub--mail MEDICATION REQUEST: Patient requests a refill. MEDICATIONS: AVANDIA ORAL TABLET 8 MG, 1 Every Morning, 90 Dispensed, 3 Fills, status: CONTINUED, 10/19/2006, Comment: mail to pt..joseph. ---diane DOCTOR`S RESPONSE: lorna 04/19/07 at 04:54 pm done FINAL ACTION: [email or web address] 04/19/07 at 05:08 pm MAILED RX TO PT.joseph Electronically Signed by: Cheyanne Conrad on Thursday, April 19, 2007 documented in this encounter Plan of Treatment Not on file documented as of this encounter Visit Diagnoses Not on filedocumented in this encounter Care Teams Radio Adjuster Relationship Specialty Start Date End Date Von Corbin MD NO ADDRESS ON FILE PCP - General 06/24/01 10/30/16 documented as of this encounter
--- OUTSIDE RECORDS SUMMARY | 2025-07-20 20:26 | XMS_ITS | Encounter Summary ---
Author Organization [facility] Address [address] [place] [address] Care Team Providers Care Mailing Machine Assistant Name Role Phone Von Corbin MD Primary Care Provider Radha faria Encounter Details Date Type Department Care Team (Late st Contact Info) Description 05/13/2006 Orders Only [facility] Primary Care - [address] [place] [address] Von Corbin MD NO ADDRESS ON FILE Social History Tobacco Use Types Packs/Day Years Used Date Smoking Tobacco: Never Assessed Sex and Gender Information Value Date Recorded Sex Assigned at Not on file Legal Sex Male 4:32 AM CANE FEEDER Gender Identity Not on file Sexual Orientation Not on file documented as of this encounter Plan of Treatment Not on file documented as of this encounter Visit Diagnoses Not on filedocumented in this encounter Care Teams Mailing Machine Assistant Relationship Specialty Start Date End Date Von Corbin MD NO ADDRESS ON FILE PCP - General 06/24/01 10/30/16 documented as of this encounter
--- OUTSIDE RECORDS SUMMARY | 2025-07-20 20:26 | XMS_ITS | Clinical Summary ---
Author Organization [facility] Address [address] [place] [address] Care Team Providers Care Coffee Sampler Name Role Phone Unavailable Primary Care Provider Unavailabl e Allergies Active Allergy Reactions Criticality Noted Date Comments No Known Allergies 01/31/2005 Medications aspirin (CIDNY) 81 mg Oral Tab Take 1 Tab by mouth daily. 0 0 02/28/2008 Active Blood-Glucose Meter (BLOOD GLUCOSE MONITORING) Kit Use as directed. 1 Each 0 10/16/2014 Active isosorbide mononitrate (IMDUR) 60 mg Extended Release 24 hour tablet TAKE ONE TABLET BY MOUTH IN THE MORNING 90 Tablet 2 09/13/2015 Active codeine-guaiFENe sin (CHERATUSSIN AC) 10-100 mg/5 mL Liquid Take 5 mL by mouth every 4 hours as needed for Cough. 180 mL 0 10/26/2015 Active HYDROcodone-acet aminophen (NORCO) 5-325 mg tablet Take 1 Tablet by mouth every 4 hours as needed for Pain, Moderate. Max Daily Amount: 6 Tablet 30 Tablet 0 12/09/2015 Active clopidogrel (PLAVIX) 75 mg Tablet Take 75 mg by mouth. Active hydrALAZINE (APRESOLINE) 50 mg tablet Take 50 mg by mouth 2 times daily. Active insulin lispro (HUMALOG KWIKPEN) 100 unit/mL pen syringe 3 units with meals plus sliding scale supply 90 day supply. Max 40 units daily. 15 mL 4 02/02/2016 Active amLODIPine (NORVASC) 5 mg tablet TAKE 1 TABLET DAILY. 90 Tablet 2 02/11/2016 Active Insulin May, Disposable, (RELION PEN NEEDLES) 32 gauge x 5/32 Needle Take 1 Each by mouth 4 times daily as needed for Other (See Comment). 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 07/22/2015 CAD (coronary artery disease) 06/27/2011 Overview (06/27/2011): cabg 2004 Type 2 diabetes mellitus with diabetic polyneuro abigail 06/27/2011 Hyperplastic colon polyp 12/30/2009 Diabetic neuropathy 12/10/2009 Diabetic retinopathy 08/19/2008 Overview (08/19/2008): dr hui and alexus Mixed hyperlipidemia 01/31/2005 Resolved Problems Problem Noted Date Diagnosed Date Resolved Date Cellulitis and abscess of leg, except foot 06/01/2006 06/27/2011 Special screening for malign ant neoplasm of prostate 05/10/2006 06/27/2011 Coronary atherosclerosis of unspecified type of vessel, [place] or graft 05/10/2006 06/27/2011 CHR ISCHEMIC HRT DIS NOS 01/31/2005 Panic disorder without agoraphobia 01/31/2005 06/27/2011 Type II or unspecified type diabetes mellitus without mention of complication, not stated as uncontrolled 01/31/2005 06/27/2011 PURE HYPERCHOLESTEROLEM 01/31/200506/13 Immunizations Immunization Administration Dates Next Due (PNEUMOVAX 23)(50 YRS UP) PN EUMOCOCCAL POLYSACCHARIDE (PPV23) 0.5 ML, IM 06/27/2011 (PREVNAR 13)(6 WKS UP) PNEUM OCOCCAL CONJUGATE (PCV13) 0.5 ML, IM 07/22/2015 Social History Tobacco Use Types Packs/Day Years Used Date Smoking Tobacco: Never Smokeless Tobacco: Never Alcohol Use Standard Drinks/Week Comments No 0 (1 standard drink = 0.6 oz pur e alcohol) Sex and Gender Information Value Date Recorded Sex Assigned at Not on file 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 Gender Identity Not on file Sexual Orientation Not on file Last Filed Vital Signs Vital Sign Reading Time Taken Comments Blood Pressure 92/60 02/02/2016 2:54 PM CDT Pulse 104 10/26/2015 4:46 PM CDT Temperature 36.6 C (97.8 F) 10/26/2015 4:46 PM CDT Respiratory Rate 18 12/30/2009 1:50 PM CDT Oxygen Saturation 98% 10/26/2015 4:46 PM CDT Inhaled Oxygen Concentration - - Weight 81.2 kg (179 lb) 02/02/2016 2:54 PM CDT Height 177.8 cm (5' 10) 12/09/2015 3:52 PM CDT Body Mass Index 25.68 12/09/2015 3:52 PM CDT Plan of Treatment Health Maintenance Due Date Last Done Comments DTAP/TDAP/TD VACCINES (1 - Tdap) 1965 ZOSTER VACCINE (1 of 2) 1996 COLORECTAL SCREENING 01/04/2015 01/04/2010, 12/31/19 10 DIABETES HBA1C Q 6 MONTHS 08/27/20162015, 11/25/2015, 07/22/2015, Additional history exists DIABETES ANNUAL FOOT EXAM 11/24/20162015, 05/05/2014, 06/28/2012, Additional history exists DIABETES MICROALBUMIN ANNUAL SCREEN 02/24/2017 02/25/2016, 03/09/2015, 05/05/2014, Additional history exists LDL CHOLESTEROL ANNUAL 02/24/2017 6, 03/09/2015, 05/05/2014, Additional history exists DIABETES ANNUAL RETINAL EXAM 10/02/2017, 11/23/2015, 10/12/2011, Additional history exists PNEUMOCOCCAL VACCINE 50+ YEA RS (3 of 3 - PCV20 or PCV21) 07/22/2020 07/22/2015, 06/27/2011 RSV VACCINE (60+ or ) (1 - 1-dose 75+ series) 2021 INFLUENZA VACCINE (#1) 2025 Procedures Procedure Name Priority Date/Time Associated Diagnosis Comments HM DIABETES EYE EXAM Routine 10/02/2016 MICROALBUMIN/CREATI NINE RATIO, RANDOM UR Routine 02/25/2016 7:19 AM CDT Type 2 diabetes mellitus with diabetic polyneuropathy (CMS/HCC) LIPID PANEL Routine 02/25/2016 7:16 AM CDT HEMOGLOBIN A1C Routine 02/25/2016 7:16 AM CDT from Last 3 Months or Most Recently Relevant to Health Maintenance Results * (ABNORMAL) DIABETES EYE EXAM (10/02/2016) us Abstract Provider HEALTH MAINTENANCE Edited Resu lt - Final [facility] * MICROALBUMIN/CREATININE RATIO, RANDOM UR (02/25/2016 7:19 AM CDT) Creatinine, Urine 101 20 - 370 mg/dL [facility] Comment: Test Performed at: [place] [address] VALENTIN HINSON DO,MPH MICROALBUMIN, URINE 1.3 mg/dL [facility] Comment: Reference Range Not established Test Performed at: [facility] [id number] [facility] [place] [address] VALENTIN HINSON DO,MPH MICROALBUMIN/CREAT RATIO, UR 13 <30 mcg/mg creat [facility] Comment: The ADA defines abnormalities in albumin excretion as follows: Category Result (mcg/mg creatinine) Normal <30 Microalbuminuria 30-299 Clinical albuminuria > OR = 300 The ADA recommends that at least two of three specimens collected within a 3-6 month period be abnormal before considering a patient to be within a diagnostic category. REPORT COMMENT: FASTING:YES PATIENT REFUSED SOME TESTING; PATIENT ENCOURAGED TO RETURN. Urine specimen (specimen) URINE SPECIMEN OBTAINED BY CLEAN CATCH PROCEDURE / Unknown 02/25/2016 7:19 AM CDT us Delilah Tineo JANITORIAL SUPERVISOR URINE ORDERABLES Final Result [facility] [address] [place] [address] * (ABNORMAL) HEMOGLOBIN A1C (02/25/2016 7:16 AM CDT) HEMOGLOBIN A1C 8.3(H) <5.7 % of total Hgb [facility] Comment: According to ADA guidelines, hemoglobin A1c <7.0% represents optimal control in non- diabetic patients. Different metrics may apply to specific patient populations. Standards of Medical Care in Diabetes-2013. Diabetes Care. 2013;36:s11-s66 For the purpose of screening for the presence of diabetes <5.7% Consistent with the absence of diabetes 5.7-6.4% Consistent with increased risk for diabetes (prediabetes) >or=6.5% Consistent with diabetes This assay result is consistent with diabetes mellitus. Currently, no consensus exists for use of hemoglobin A1c for diagnosis of diabetes for children. REPORT COMMENT: FASTING:YES Test Performed at: [facility] [id number] VALENTIN HINSON DO,MPH 02/25/2016 7:16 AM CDT us Historical Provider CHEMISTRY ORDERABLES Final R esult [facility] [address] [place] [address] * (ABNORMAL) LIPID PANEL (02/25/2016 7:16 AM CDT) CHOLESTEROL 131 125 - 200 mg/dL [facility] Comment: Test Performed at: [facility] [id number] VALENTIN HINSON DO,MPH HDL 25(L) > OR = 40 mg/dL [facility] TRIGLYCERIDE 148 <150 mg/dL [facility] LDL CALCULATED 76 <130 mg/dL (calc) [facility] Comment: Desirable range <100 mg/dL for patients with CHD or diabetes and <70 mg/dL for diabetic patients with known heart disease. CHOL/HDL RATIO 5.2(H) < OR = 5.0 (calc) [facility] TOTAL NON-HDL CHOL(LDL+VLDL) 106 mg/dL (calc) [facility] Comment: Target for non-HDL cholesterol is 30 mg/dL higher than LDL cholesterol target. 02/25/2016 7:16 AM CDT us Historical Provider CHEMISTRY ORDERABLES Final R esult [facility] [address] [place] [address] from Last 3 Months or Most Recently Relevant to Health Maintenance Insurance [facility] BLUE ACCESS/TRUE BLUE PPO Advance Directives For more information, please contact: [phone] * Full Code (Latest Code Status on File) Date Activated Date Inactivated Comments 12/30/2009 12:34 PM 12/31/2009 2:32 AM
--- OUTSIDE RECORDS SUMMARY | 2025-07-20 20:26 | XMS_ITS | Encounter Summary ---
Author Organization [facility] Address 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 Gender Identity Not on file Sexual Orientation Not on file documented as of this encounter Last Filed Vital Signs Vital Sign Reading Time Taken Comments Blood Pressure 120/60 04/24/2007 12:00 PM CDT Pulse - - Temperature 36.4 C (97.6 F) 04/24/2007 12:00 PM CDT Respiratory Rate - - Oxygen Saturation - - Inhaled Oxygen Concentration - - Weight 99.3 kg (219 lb) 04/24/2007 12:00 PM CDT Height - - Body Mass Index - - documented in this encounter Plan of Treatment Not on file documented as of this encounter Visit Diagnoses Not on filedocumented in this encounter Care Teams Vocational Examiner Relationship Specialty Start Date End Date Von Corbin MD NO ADDRESS ON FILE PCP - General 06/24/01 10/30/16 documented as of this encounter
--- OUTSIDE RECORDS SUMMARY | 2025-07-20 20:26 | XMS_ITS | Encounter Summary ---
Author Organization [facility] Address 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
--- OUTSIDE RECORDS SUMMARY | 2025-07-20 20:26 | XMS_ITS | Encounter Summary ---
Author Organization [facility] Address [address] [place] [address] Care Team Providers Care Cooking Instructor Name Role Phone Von Corbin MD Primary Care Provider Radha faria Encounter Details Date Type Department Care Team (Latest Contact Info) Description 05/10/2006 Outpatient Historical [facility] Primary Care - [address] [place] [address] Von Corbin MD NO ADDRESS ON FILE Special Screening for Malignant Neoplasm of Prostate (Primary Dx) Social History Tobacco Use Types Packs/Day Years Used Date Smoking Tobacco: Never Assessed Sex and Gender Information Value Date Recorded Sex Assigned at Not on file 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 Gender Identity Not on file Sexual Orientation Not on file documented as of this encounter Plan of Treatment Not on file documented as of this encounter Procedures Procedure Name Priority Date/Time Associated Diagnosis Comments MICROALBUMIN/CREATIN INE RATIO, RANDOM UR Routine 05/10/2006 7:14 PM CDT PSA Routine 05/10/2006 7:14 PM CDT HEMOGLOBIN A1C Routine 05/10/2006 7:14 PM CDT LIPID PANEL Routine 05/10/2006 7:14 PM CDT documented in this encounter Results * MICROALBUMIN/CREATININE RATIO, RANDOM UR (05/10/2006 7:14 PM CDT) MICROALBUMIN/C REAT RATIO, UR <19 0 - 29 mg/g creatinine INTERFACE SYSTEM 05/10/2006 7:14 PM CDT us Von Corbin MD URINE ORDERABLES Final Result Performing Organization Address [facility] Phone Number INTERFACE SYSTEM Refer to clinic/hospital department * (ABNORMAL) HEMOGLOBIN A1C (05/10/2006 7:14 PM CDT) Pathologist [facility] HEMOGLOBIN A1C 8.2(H) 3.9 - 6.1 % of Hgb INTERFACE SYSTEM GLUCOSE, MEAN BLOOD 187 mg/dL INTERFACE SYSTEM 05/10/2006 7:14 PM CDT us Von Corbin MD CHEMISTRY ORDERABLES Final Re sult Performing Organization Address [facility] Phone Number INTERFACE SYSTEM Refer to clinic/hospital department * (ABNORMAL) LIPID PANEL (05/10/2006 7:14 PM CDT) Pathologist [facility] CHOLESTEROL 197 100 - 199 mg/dL INTERFACE SYSTEM TRIGLYCERIDE 321(H) 10 - 149 mg/dL INTERFACE SYSTEM HDL 41 40 - 59 mg/dL INTERFACE SYSTEM CHOL/HDL RATIO 4.8 2.0 - 5.0 INTER FACE SYSTEM LDL CALCULATED 92 <=99 mg/dL INTERFACE SYSTEM LIPID PANEL COMMENT See Below INTERFACE SYSTEM Comment: The adult ATP and pediatric NCEP classifications for lipids are available on the [facility] Intranet at: [email or web address].nsf Select: Lab Policies and Procedures Select: Reference Ranges - Lipids 05/10/2006 7:14 PM CDT us Von Corbin MD CHEMISTRY ORDERABLES Final Re sult Performing Organization Address [facility] Co de Phone Number INTERFACE SYSTEM Refer to clinic/hospital department * PSA (05/10/2006 7:14 PM CDT) Pathologist [facility] PSA 0.5 0.0 - 4.0 ng/mL INTERFACE SYSTEM Comment:Performed on [employer] [address] System 05/10/2006 7:14 PM CDT us Von Corbin MD CHEMISTRY ORDERABLES Final Re sult INTERFACE SYSTEM Refer to clinic/hospital department documented in this encounter Visit Diagnoses Diagnosis Special screening for malignant neoplasm of prostate- Primary documented in this encounter Care Teams Cooking Instructor Relationship Specialty Start Date End Date Von Corbin MD NO ADDRESS ON FILE PCP - General 06/24/01 10/30/16 documented as of this encounter
--- OUTSIDE RECORDS SUMMARY | 2025-07-20 20:26 | XMS_ITS | Encounter Summary ---
Author Organization [facility] Address 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 LAST VISIT: 05-10-06 PCP: paris. ALTERNATIVE PHONE NUMBER: [phone] WHO CALLED: Patient called. CURRENT ALLERGY LIST: NO KNOWN ALLERGIES PROBLEMS: RASH: The rash began approximately 2 days ago. pt. c/o a red , sore, puffy area on his upper thigh pt. stated it looks like a boil, and thinks it may be another staph infection pt. also c/o chills , bodyaches, and fatiuge pt. denies fever SECTION 1: REQUESTED ACTION anika 06/01/06 at 11:34 am: APPOINTMENT REQUEST: Patient wants an appointment today with PCP only, no appointments available. /ambar DOCTOR`S RESPONSE: angelawpg 06/01/06 at 11:43 am fran regalado FINAL ACTION: anika 06/01/06 at 11:46 am Spoke with patient 06/01/06 at 11:46 am. Booked appointment: 3:30 today......./ambar Electronically Signed by: Ambar Anthony on Thursday, June 01, 2006 * Von Corbin MD - 05/26/2008 9:16 PM CDT TEMPERATURE: 97??f Oral WEIGHT: 214lbs BLOOD PRESSURE: 118/70 Left Arm Sitting NURSE NAME: Rina Burks M ALLERGIES: No known drug allergies. MEDICATIONS: Medications may have changed. Dr to review medications. CHIEF COMPLAINT Complains of chills. check boil or bite on upper left leg. HISTORY: HISTORY OF PRESENT ILLNESS: chilled on off all week. tired, avoiding exercise.Gassy. no diarrhea. Lesion on leg noted sunday. No cough, dyspnea, gi or gu sx. PHYSICAL EXAMINATION: NECK/THYROID: Trachea midline. No thyroid enlargement, tenderness, or mass. No supraclavicular or cervical adenopathy. RESPIRATORY: Clear to auscultation and percussion. Normal respiratory effort. CARDIOVASCULAR: CARDIAC: Regular rhythm. No murmurs, rubs, or gallops. SKIN: area of erythema with tiny dark center. No drainage even with pressure. No lymphangitis. ASSESSMENT/PLAN: 250.00-DM II CONTROLLED sugars a little wose this week,probably due to infection. 682.6-OTHER CELLULITIS AND ABSCESS skin infection, probably from small bite but with hx of mrsa. treat with sulfa. calll if not better. the systemic sx are a bit more than expected so watch carefully. MEDICATIONS: SULFAMETHOXAZOLE-TRIMETHOPRIM ORAL TABLET 800-160 MG, 1 Two Times A Day, 20 Dispensed, status: CONTINUED, 06/01/2006. Electronically Signed by: Von Corbin MD on Saturday, June 03, 2006 documented in this encounter Plan of Treatment Not on file documented as of this encounter Visit Diagnoses Not on filedocumented in this encounter Care Teams Bi Tester Relationship Specialty Start Date End Date Von Corbin MD NO ADDRESS ON FILE PCP - General 06/24/01 10/30/16 documented as of this encounter
--- OUTSIDE RECORDS SUMMARY | 2025-07-20 20:26 | XMS_ITS | Encounter Summary ---
Author Organization [facility] Address 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 Gender Identity Not on file Sexual Orientation Not on file documented as of this encounter Last Filed Vital Signs Vital Sign Reading Time Taken Comments Blood Pressure 120/70 09/24/2006 11:45 AM PHYSICAL THERAPY AIDE Pulse - - Temperature 36.6 C (97.9 F) 09/24/2006 11:45 AM PHYSICAL THERAPY AIDE Respiratory Rate - - Oxygen Saturation - - Inhaled Oxygen Concentration - - Weight 95.7 kg (211 lb) 09/24/2006 11:45 AM PHYSICAL THERAPY AIDE Height - - Body Mass Index - - documented in this encounter Plan of Treatment Not on file documented as of this encounter Visit Diagnoses Not on filedocumented in this encounter Care Teams Recoverer Relationship Specialty Start Date End Date Von Corbin MD NO ADDRESS ON FILE PCP - General 06/24/01 10/30/16 documented as of this encounter
--- OUTSIDE RECORDS SUMMARY | 2025-07-20 20:26 | XMS_ITS | Encounter Summary ---
Author Organization [facility] Address 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 LAST VISIT: 06-01-06 PCP: Shaquille. ALTERNATIVE PHONE NUMBER: [phone] WHO CALLED: Patient called. CURRENT ALLERGY LIST: NO KNOWN ALLERGIES PHARMACY NUMBER: [phone] PROBLEMS: CONGESTION: Patient complains of chest congestion. chest hurts to cough-hacky not prod chest cold COUGH:Patient complains of cough. hoarse.x 4 days no fever has not tried otc-dm. SECTION 1: REQUESTED ACTION 08/01/06 at 09:14 am: MEDICATION REQUEST: wants rx for cough..........markel DOCTOR`S RESPONSE: 08/01/06 at 11:33 am MEDICATIONS: Call in to Pharmacy [facility] ORAL SYRUP 10-100 MG/5ML FLUIDOUNCES, 2 tsp every 4 hours prn, 6 Dispensed, status: NEW PRESCRIPTION, 08/01/2006, Comment: called to [phone]/ Markel. FINAL ACTION: w 08/01/06 at 11:34 am Spoke with patient 08/01/06 at 11:42 am. Called pharmacy at 08/01/06 at 11:34 am. / Markel Electronically Signed by: Markel Sifuentes on Tuesday, August 01, 2006 documented in this encounter Plan of Treatment Not on file documented as of this encounter Visit Diagnoses Not on filedocumented in this encounter Care Teams Draughtsman Relationship Specialty Start Date End Date Von Corbin MD NO ADDRESS ON FILE PCP - General 06/24/01 10/30/16 documented as of this encounter
--- OUTSIDE RECORDS SUMMARY | 2025-07-20 20:26 | XMS_ITS | Encounter Summary ---
Author Organization [facility] Address 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
--- OUTSIDE RECORDS SUMMARY | 2025-07-20 20:26 | XMS_ITS | Encounter Summary ---
Author Organization [facility] Address 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 LAST VISIT: 09-24-06 PCP: paris. ALTERNATIVE PHONE NUMBER: [phone] WHO CALLED: Patient called. CURRENT ALLERGY LIST: NO KNOWN ALLERGIES PHARMACY NUMBER: mail to pt SECTION 1: REQUESTED ACTION starca 10/19/06 at 03:58 pm: MEDICATION REQUEST: Patient requests a refill. 90 day supply for mail order MEDICATIONS: AVANDIA ORAL TABLET 8 MG, 1 Every Morning, 90 Dispensed, 3 Fills, status: NEW PRESCRIPTION, 08/29/2005. ...kaden DOCTOR`S RESPONSE: rigoberto 10/19/06 at 04:41 pm OK FINAL ACTION: rigoberto 10/19/06 at 04:42 pm mailed to pt Left message on patient`s recorder or with a family member 10/19/2006 at 04:44 pm. ...kaden Electronically Signed by: Cheyanne Conrad on Thursday, October 19, 2006 documented in this encounter Plan of Treatment Not on file documented as of this encounter Visit Diagnoses Not on filedocumented in this encounter Care Teams Program Mgr Relationship Specialty Start Date End Date Von Corbin MD NO ADDRESS ON FILE PCP - General 06/24/01 10/30/16 documented as of this encounter
--- OUTSIDE RECORDS SUMMARY | 2025-07-20 20:26 | XMS_ITS | Encounter Summary ---
Author Organization [facility] Address [address] [place] [address] Care Team Providers Care Facility Practice Specialist Name Role Phone Von Corbin MD Primary Care Provider Radha faria Encounter Details Date Type Department Care Team (Late st Contact Info) Description 09/24/[address] 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 LAST VISIT: PCP: paris. ALTERNATIVE PHONE NUMBER: [phone] WHO CALLED: Patient called. CURRENT ALLERGY LIST: NO KNOWN ALLERGIES PROBLEMS: back of leg between bottom, large rash, very sore hurts to sit, raised noticed last very tender SECTION 1: REQUESTED ACTION nicole 09/24/06 at 08:53 am: APPOINTMENT REQUEST: Patient wants an appointment today with PCP only, no appointments available. diane DOCTOR`S RESPONSE: conwpg 09/24/06 at 09:24 am Please schedule an appointment for patient today with me. FINAL ACTION: rigoberto 09/24/06 at 09:39 am Spoke with patient 09/24/06 at 09:39 am. Booked appointment: today 11:45am per pc...kaden Electronically Signed by: Cheyanne Conrad on Sunday, September 24, 2006 * Von Corbin MD - 01/03/2008 6:50 PM CDT TEMPERATURE: 97.9??f Oral WEIGHT: 211lbs BLOOD PRESSURE: 120/70 Right Arm Sitting NURSE NAME: Elizabeth Correia Barbie ALLERGIES: No known drug allergies. MEDICATIONS: Medication list current. 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 Pain on sitting ROS: GENERAL: Normal activity and energy level, no change in appetite. No major weight gain or loss. No malaise, chills, fever, diaphoresis. PHYSICAL EXAMINATION: CONSTITUTIONAL: GENERAL APPEARANCE: Healthy appearing patient in no distress. SKIN: RASH/LESION #1 LOCATION: Right posterior thigh, right posterior hip. CHARACTERISTICS: The lesion is erythematous. The rash is bullous. The lesion border is circular. There is only one lesion. ASSESSMENT/PLAN: 682.6-OTHER CELLULITIS AND ABSCESS recurrent lesions, consistent with mrsa again.. Lesions are not now amenable to drainage. Will treat with antibiotics and give decolonization protocol. MEDICATIONS: SULFAMETHOXAZOLE-TRIMETHOPRIM ORAL TABLET 800-160 MG, 1 Two Times A Day, 20 Dispensed, status: CONTINUED, 09/24/2006. BACTROBAN EXTERNAL OINTMENT 2 % GRAMS, apply intranasally bid, 22 Dispensed, status: NEW PRESCRIPTION, 09/24/2006. RETURN VISIT : Instructed to call if not improving. Electronically Signed by: Von Corbin MD on Monday, September 25, 2006 documented in this encounter Plan of Treatment Not on file documented as of this encounter Visit Diagnoses Not on filedocumented in this encounter Care Teams Facility Practice Specialist Relationship Specialty Start Date End Date Von Corbin MD NO ADDRESS ON FILE PCP - General 06/24/01 10/30/16 documented as of this encounter
--- OUTSIDE RECORDS SUMMARY | 2025-07-20 20:26 | XMS_ITS | Encounter Summary ---
Author Organization [facility] Address [address] [place] [address] Care Team Providers Care Tobacco Dipper Name Role Phone Von Corbin MD Primary Care Provider Radha faria Encounter Details Date Type Department Care Team (Late st Contact Info) Description 08/18/1998 Outpatient Historical [facility] Primary Care - [address] [place] [phone] Sid Pruitt MD [address] [facility] [address] [address] Social History Tobacco Use Types Packs/Day Years Used Date Smoking Tobacco: Never Assessed Sex and Gender Information Value Date Recorded Sex Assigned at Not on file 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
--- OUTSIDE RECORDS SUMMARY | 2025-07-20 20:26 | XMS_ITS | Encounter Summary ---
Author Organization [facility] Address 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
--- OUTSIDE RECORDS SUMMARY | 2025-07-20 20:26 | XMS_ITS | Encounter Summary ---
Author Organization [facility] Address 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
--- OUTSIDE RECORDS SUMMARY | 2025-07-20 20:26 | XMS_ITS | Encounter Summary ---
Author Organization [facility] Address [address] [place] [address] Care Team Providers Care Manager Cosmetic Name Role Phone Von Corbin MD Primary Care Provider Radha faria Encounter Details Date Type Department Care Team (Late st Contact Info) Description 07/23/2007 Orders Only 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 LAST VISIT: 04-24-07 PCP: Shaquille WHO CALLED: Patient called. SECTION 1: REQUESTED ACTION arvind 07/23/07 at 02:39 pm: MEDICATION REQUEST: MEDICATION REQUEST: Patient requests a refill. MEDICATIONS: ONE TOUCH ULTRA TEST IN VITRO STRIP, test bid as directed, 100 Dispensed, 5 Fills, status: CONTINUED, 07/23/2007. in [facility] for signature wants mailed to home...............markel DOCTOR`S RESPONSE: lorna 07/23/07 at 04:28 pm in [facility] FINAL ACTION: bennie 07/23/07 at 04:32 pm Spoke with patient 07/23/07 at 04:32 pm. ADDITIONAL COMMENTS: mailed rx ad Electronically Signed by: Araceli Joyce on Monday, July 23, 2007 documented in this encounter Plan of Treatment Not on file documented as of this encounter Visit Diagnoses Not on filedocumented in this encounter Care Teams Manager Cosmetic Relationship Specialty Start Date End Date Von Corbin MD NO ADDRESS ON FILE PCP - General 06/24/01 10/30/16 documented as of this encounter
--- OUTSIDE RECORDS SUMMARY | 2025-07-20 20:26 | XMS_ITS | Encounter Summary ---
Author Organization [facility] Address 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
--- OUTSIDE RECORDS SUMMARY | 2025-07-20 20:26 | XMS_ITS | Encounter Summary ---
Author Organization [facility] Address 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 Gender Identity Not on file Sexual Orientation Not on file documented as of this encounter Last Filed Vital Signs Vital Sign Reading Time Taken Comments Blood Pressure 118/70 06/01/2006 3:30 PM CDT Pulse - - Temperature 36.1 C (97 F) 06/01/2006 3:30 PM CDT Respiratory Rate - - Oxygen Saturation - - Inhaled Oxygen Concentration - - Weight 97.1 kg (214 lb) 06/01/2006 3:30 PM CDT Height - - Body Mass Index - - documented in this encounter Plan of Treatment Not on file documented as of this encounter Visit Diagnoses Not on filedocumented in this encounter Care Teams Sole Tacker Relationship Specialty Start Date End Date Von Corbin MD NO ADDRESS ON FILE PCP - General 06/24/01 10/30/16 documented as of this encounter
--- OUTSIDE RECORDS SUMMARY | 2025-07-20 20:31 | XMS_ITS | Encounter Summary ---
Author Organization [facility] Address 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 LAST VISIT: 11-13-05 PCP: carli. ALTERNATIVE PHONE NUMBER: [phone] WHO CALLED: CURRENT ALLERGY LIST: NO KNOWN ALLERGIES PHARMACY NUMBER: [phone] PROBLEMS: CONGESTION: Patient complains of sinus congestion. The symptoms began approximately 2 days ago. w/pain across bridge of nose and below his eyes pt denies cold symptoms, denies fever SECTION 1: REQUESTED ACTION aniceto 01/23/06 at 10:27 am: MEDICATION REQUEST: want an antibiotic , say he gets this quite often and has to fly out of town next week and would like something before that /era DOCTOR`S RESPONSE: lorna 01/23/06 at 06:09 pm rx was [place] to pharmacy MEDICATIONS: Call in to Pharmacy CEFTIN ORAL TABLET 250 MG, 1 Two Times A Day, 20 Dispensed, status: NEW PRESCRIPTION, 01/23/2006. Electronically Signed by: Von Corbin MD on Monday, January 23, 2006 documented in this encounter Plan of Treatment Not on file documented as of this encounter Visit Diagnoses Not on filedocumented in this encounter Care Teams Optical Instrument Repairer Relationship Specialty Start Date End Date Von Corbin MD NO ADDRESS ON FILE PCP - General 06/24/01 10/30/16 documented as of this encounter
--- OUTSIDE RECORDS SUMMARY | 2025-07-20 20:31 | XMS_ITS | Encounter Summary ---
Author Organization [facility] Address [address] [place] [address] Care Team Providers Care Office Administrative Assistant Name Role Phone Von Corbin MD Primary Care Provider Radha faria Encounter Details Date Type Department Care Team (Late st Contact Info) Description 08/29/2005 Orders Only [facility] Primary Care - [facility] [address] [place] [address] [address] [place] [address] Von Corbin MD NO ADDRESS ON FILE Social History Tobacco Use Types Packs/Day Years Used Date Smoking Tobacco: Never Assessed Sex and Gender Information Value Date Recorded Sex Assigned at Not on file 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 HbA1c: 8.4 This is running too high and needs to get down to the range of seven or less. We should increase your Avandia to 8 mg per day. CHOLESTEROL TOTAL: 195 LDL: 116 although technically normal for the general population, our target for this is much lower in someone with both diabetes and coronary heart disease. For this reason, we need to push up the dose of the lovastatin.I am sending a new prescription. Our goal is to get the LDL down to 70 or less. Sincerely yours, VON CORBIN MD documented in this encounter Plan of Treatment Not on file documented as of this encounter Visit Diagnoses Not on filedocumented in this encounter Care Teams Office Administrative Assistant Relationship Specialty Start Date End Date Von Corbin MD NO ADDRESS ON FILE PCP - General 06/24/01 10/30/16 documented as of this encounter
--- OUTSIDE RECORDS SUMMARY | 2025-07-20 20:31 | XMS_ITS | Encounter Summary ---
Author Organization [facility] Address 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 Gender Identity Not on file Sexual Orientation Not on file documented as of this encounter Last Filed Vital Signs Vital Sign Reading Time Taken Comments Blood Pressure 108/62 11/13/2005 3:15 PM CDT Pulse 72 11/13/2005 3:15 PM CDT Temperature 36.2 C (97.2 F) 11/13/2005 3:15 PM CDT Respiratory Rate - - Oxygen Saturation - - Inhaled Oxygen Concentration - - Weight 96.2 kg (212 lb) 11/13/2005 3:15 PM CDT Height - - Body Mass Index - - documented in this encounter Plan of Treatment Not on file documented as of this encounter Visit Diagnoses Not on filedocumented in this encounter Care Teams Manager Orange Relationship Specialty Start Date End Date Von Corbin MD NO ADDRESS ON FILE PCP - General 06/24/01 10/30/16 documented as of this encounter
--- OUTSIDE RECORDS SUMMARY | 2025-07-20 20:32 | XMS_ITS | Encounter Summary ---
Author Organization [facility] Address 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 Gender Identity Not on file Sexual Orientation Not on file documented as of this encounter Plan of Treatment Not on file documented as of this encounter Procedures Procedure Name Priority Date/Time Associated Diagnosis Comments POC GLUCOSE Routine 03/15/2005 8:04 AM CDT documented in this encounter Results * POC GLUCOSE (03/15/2005 8:04 AM CDT) GLUCOSE POC 105 65 - 109 mg/dL INTERFACE SYSTEM 03/15/2005 8:04 AM CDT Kailash Vidal MD POINT OF CARE TESTING Final Result INTERFACE SYSTEM Refer to clinic/hospital department documented in this encounter Visit Diagnoses Diagnosis Coronary atherosclerosis of lummi coronary artery- Primary documented in this encounter Care Teams Railroad Worker Relationship Specialty Start Date End Date Von Corbin MD NO ADDRESS ON FILE PCP - General 06/24/01 10/30/16 documented as of this encounter
--- OUTSIDE RECORDS SUMMARY | 2025-07-20 20:32 | XMS_ITS | Clinical Summary ---
Author Organization [facility] [address] Address [address] [place] [address] Care Team Providers Care Derrick Boat Captain Name Role Phone Ishan Tee NP Primary Care Provider [phone] Allergies Active Allergy Reactions Criticality Noted Date Comments Ba Inhibitors Cough,Nausea only Low 08/24/2015 Medications amLODIPine (NORVASC) 5 mg tablet Take 1 tablet (5 mg total) by mouth daily 6 Active aspirin 81 mg enteric coated tablet daily 7 Active OneTouch Ultra Test strip USE TO TEST THREE TIMES A DAY 6 Active blood-glucose meter kit as directed 5 Active carvediloL (COREG) 12.5 mg tablet 2 Active clopidogreL (PLAVIX) 75 mg tablet Take 1 tablet (75 mg total) by mouth daily Active guaiFENesin-code ine (GUAITUSS AC) liquid 100-10 mg/5 mL Take 5 mL by mouth every 4 (four) hours as needed 6 Active dapagliflozin propanediol (FARXIGA) 10 mg tablet 1 tablet (10 mg total) 2 Active dulaglutide (TRULICITY SUBQ) 1.5 per day A ctive hydrALAZINE (APRESOLINE) 50 mg tablet Take 1 tablet (50 mg total) by mouth 2 (two) times a day Active HYDROcodone-acet aminophen (NORCO) 5-325 mg per tablet every 8 hours 6 Active insulin lispro (HumaLOG, ADMELOG) 100 unit/mL pen for injection 3 units with meals plus sliding scale supply 90 day supply. Max 40 units daily. 6 Active INSULIN LISPRO SUBQ Inject under the skin 2 (two) times a day Active isosorbide mononitrate ER (IMDUR) 60 mg 24 hr tablet Take 1 tablet (60 mg total) by mouth every morning 6 Active lovastatin (MEVACOR) 40 mg tablet [address] (PROTONIX) 40 mg EC tablet 2 Active ondansetron (ZOFRAN) 4 mg tablet Take 1 tablet (4 mg total) by mouth every 8 (eight) hours as needed 4 Active sacubitriL-valsa rtan (Entresto) 24-26 mg tablet Take 1 tablet by mouth every 12 (twelve) hours 2 Active spironolactone (ALDACTONE) 25 mg tablet Take 0.5 tablets (12.5 mg total) by mouth daily 2 Active benzonatate (TESSALON) 200 mg capsuleIndicatio ns:Acute cough Take 1 capsule (200 mg total) by mouth 3 (three) times a day as needed for cough 30 capsule 5 Active Active Problems No known active problems Social History Tobacco Use Types Packs/Day Years Used Date Smoking Tobacco: Never Assessed Sex and Gender Information Value Date Recorded Sex Assigned at Not on file Legal Sex Male 1:18 PM CDT Gender Identity Not on file Sexual Orientation Not on file Last Filed Vital Signs Vital Sign Reading Time Taken Comments Blood Pressure 139/80 01/26/2025 8:32 AM CDT Pulse 83 01/26/2025 8:32 AM CDT Temperature 36.4 C (97.6 F) 01/26/2025 8:32 AM CDT Respiratory Rate 18 01/26/2025 8:32 AM CDT Oxygen Saturation 97% 01/26/2025 8:32 AM CDT Inhaled Oxygen Concentration - - Weight 94.8 kg (209 lb 1.6 oz) 01/26/2025 8:32 A M CDT Height 177.8 cm (5' 10) 01/26/2025 8:32 AM CDT Body Mass Index 30 01/26/2025 8:32 AM CDT Plan of Treatment Health Maintenance Due Date Last Done Comments Depression Screening 1945 Fall Risk Assessment 1945 Hepatitis C Screening 1945 Hepatitis B Screening 1964 Well Visit 65+ 2011 Covid-19 Vaccine (8 2024-2 6 season) 2025 05/30/2024, 05/14/2023, 05/01/2022, Additional history exists Influenza Vaccine (#1) 2025 , 06/09/2023, 06/01/2022, Additional history exists DTaP/Tdap/Td Vaccine (2 - Td or Tdap) 03/11/2032 03/11/2022 Pneumococcal vaccine 65+ Completed 018, 07/22/2015, 08/13/2013, Additional history exists Zoster Vaccine Completed 04/25/2023, 02/26/2023 Insurance [facility] MEDICARE [facility] Address: [address] [address] Care Teams Derrick Boat Captain Relationship Specialty Start Date End Date Ishan Tee NP [address] [place] [address] PCP - General Nurse Practitioner 10/01/24
--- OUTSIDE RECORDS SUMMARY | 2025-07-20 20:32 | XMS_ITS | Encounter Summary ---
Author Organization [facility] Address [address] [place] [address] Care Team Providers Care Wallcovering Hanger Name Role Phone Von Corbin MD Primary Care Provider Radha faria Encounter Details Date Type Department Care Team (Late st Contact Info) Description 04/14/2005 Outpatient Historical [facility] Cardiovas and Thor Surg at [facility] Heart [address] [address] Isael Gabriel Jr., MD NO ADDRESS ON FILE Social History Tobacco Use Types Packs/Day Years Used Date Smoking Tobacco: Never Assessed Sex and Gender Information Value Date Recorded Sex Assigned at Not on file 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
--- OUTSIDE RECORDS SUMMARY | 2025-07-20 20:32 | XMS_ITS | Clinical Summary ---
Author Organization [facility] Address [address] [place] [address] Care Team Providers Care Hearth Feeder Name Role Phone Unavailable Primary Care Provider Unavailabl e Immunizations Immunization Administration Dates Next Due Covid-19, Mrna, Lnp-s, PF, 1 00 mcg/0.5 mL Dose (Moderna) 06/10/2021 Social History Tobacco Use Types Packs/Day Years Used Date Smoking Tobacco: Never Assessed Sex and Gender Information Value Date Recorded Sex Assigned at Not on file Legal Sex Male 2:32 PM CDT Gender Identity Not on file Sexual Orientation Not on file Plan of Treatment Health Maintenance Due Date Last Done Comments Hepatitis C Virus (HCV) Screening 1945 TdaP Immunization 1945 Zoster Immunization (1 of 2) 1996 Pneumococcal Immunization (50+ years) (2 of 2 - PCV20 or PCV21) 06/23/2019 06/23/2018 Respiratory Syncytial Virus (RSV) Immunization (Adult) (1 - 1-dose 75+ series) 2021 Influenza Immunization (#1) 04/13/202505/13, 05/31/2020, 06/07/2019, Additional history exists SARS-COV-2 Immunization ( season) 2025 06/10/2021, 10/26/2020, 09/23/2020 Hepatitis B Immunization Aged Out No longer eligible based on patient's age to complete this topic Human Papillomavirus (HPV) Immunization Aged Out No longer eligible based on patient's age to complete this topic Meningococcal Immunization (ACWY) Aged Out No longer eligible based on patient's age to complete this topic Rotavirus Immunization Aged Out No lo nger eligible based on patient's age to complete this topic
--- OUTSIDE RECORDS SUMMARY | 2025-07-20 20:32 | XMS_ITS | Encounter Summary ---
Author Organization [facility] Address [address] [place] [address] Care Team Providers Care Toilet Products Molder Name Role Phone Von Corbin MD Primary Care Provider Radha faria Encounter Details Date Type Department Care Team (Late st Contact Info) Description 04/19/2005 Outpatient Historical [facility] Cardiovas and Thor Surg at [facility] Heart [address] [address] Isael Gabriel Jr., MD NO ADDRESS ON FILE Social History Tobacco Use Types Packs/Day Years Used Date Smoking Tobacco: Never Assessed Sex and Gender Information Value Date Recorded Sex Assigned at Not on file 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
--- OUTSIDE RECORDS SUMMARY | 2025-07-20 20:32 | XMS_ITS | Encounter Summary ---
Author Organization [facility] Address 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 Gender Identity Not on file Sexual Orientation Not on file documented as of this encounter Last Filed Vital Signs Vital Sign Reading Time Taken Comments Blood Pressure 126/80 08/03/2005 2:30 PM HAND PRINTED CIRCUIT BOARD ASSEMBLER Pulse - - Temperature 36.3 C (97.4 F) 08/03/2005 2:30 PM HAND PRINTED CIRCUIT BOARD ASSEMBLER Respiratory Rate - - Oxygen Saturation - - Inhaled Oxygen Concentration - - Weight 94.8 kg (209 lb) 08/03/2005 2:30 PM HAND PRINTED CIRCUIT BOARD ASSEMBLER Height - - Body Mass Index - - documented in this encounter Plan of Treatment Not on file documented as of this encounter Visit Diagnoses Not on filedocumented in this encounter Care Teams Plant Engineering Supervisor Relationship Specialty Start Date End Date Von Corbin MD NO ADDRESS ON FILE PCP - General 06/24/01 10/30/16 documented as of this encounter
--- OUTSIDE RECORDS SUMMARY | 2025-07-20 20:32 | XMS_ITS | Encounter Summary ---
Author Organization [facility] Address 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 Gender Identity Not on file Sexual Orientation Not on file documented as of this encounter Last Filed Vital Signs Vital Sign Reading Time Taken Comments Blood Pressure 122/80 05/11/2005 2:30 PM CDT Pulse - - Temperature 36.8 C (98.2 F) 05/11/2005 2:30 PM CDT Respiratory Rate - - Oxygen Saturation - - Inhaled Oxygen Concentration - - Weight 93 kg (205 lb) 05/11/2005 2:30 PM CDT Height - - Body Mass Index - - documented in this encounter Plan of Treatment Not on file documented as of this encounter Visit Diagnoses Not on filedocumented in this encounter Care Teams Fisher Eel Spear Relationship Specialty Start Date End Date Von Corbin MD NO ADDRESS ON FILE PCP - General 06/24/01 10/30/16 documented as of this encounter
--- OUTSIDE RECORDS SUMMARY | 2025-07-20 20:34 | XMS_ITS | Encounter Summary ---
Author Organization [facility] Address 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
--- OUTSIDE RECORDS SUMMARY | 2025-07-20 20:34 | XMS_ITS | Encounter Summary ---
Author Organization [facility] Address [address] [place] [address] Care Team Providers Care Rink Rat Name Role Phone Von Coribn MD Primary Care Provider Radha faria Encounter Details Date Type Department Care Team (Late st Contact Info) Description 03/22/2005 Outpatient Historical [facility] Cardiovas and Thor Surg at [facility] H[facility] [address] 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
--- OUTSIDE RECORDS SUMMARY | 2025-07-20 20:35 | XMS_ITS | Encounter Summary ---
Author Organization [facility] Address [address] [place] [address] Care Team Providers Care Carriage Operator Name Role Phone Von Corbin MD Primary Care Provider Radha faria Encounter Details Date Type Department Care Team (Late st Contact Info) Description 06/09/2004 Outpatient Historical [facility] Primary Care - [address] [place] [address] Von Corbin MD NO ADDRESS ON FILE Social History Tobacco Use Types Packs/Day Years Used Date Smoking Tobacco: Never Assessed Sex and Gender Information Value Date Recorded Sex Assigned at Not on file 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
--- OUTSIDE RECORDS SUMMARY | 2025-07-20 20:35 | XMS_ITS | Encounter Summary ---
Author Organization [facility] Address 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 Gender Identity Not on file Sexual Orientation Not on file documented as of this encounter Last Filed Vital Signs Vital Sign Reading Time Taken Comments Blood Pressure 128/80 01/31/2005 3:45 PM CDT Pulse - - Temperature 35.9 C (96.7 F) 01/31/2005 3:45 PM CDT Respiratory Rate - - Oxygen Saturation - - Inhaled Oxygen Concentration - - Weight 96.2 kg (212 lb) 01/31/2005 3:45 PM CDT Height - - Body Mass Index - - documented in this encounter Plan of Treatment Not on file documented as of this encounter Visit Diagnoses Not on filedocumented in this encounter Care Teams Insurance Loss Adjuster Relationship Specialty Start Date End Date Von Corbin MD NO ADDRESS ON FILE PCP - General 06/24/01 10/30/16 documented as of this encounter
--- OUTSIDE RECORDS SUMMARY | 2025-07-20 20:35 | XMS_ITS | Encounter Summary ---
Author Organization [facility] Address 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
--- OUTSIDE RECORDS SUMMARY | 2025-07-20 20:35 | XMS_ITS | Encounter Summary ---
Author Organization [employer] Address 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 Gender Identity Not on file Sexual Orientation Not on file documented as of this encounter Plan of Treatment Not on file documented as of this encounter Procedures Procedure Name Priority Date/Time Associated Diagnosis Comments POC GLUCOSE Routine 03/26/2005 5:13 AM CDT CBC WITH DIFFERENTIAL Routine 03/26/2005 5:00 AM CDT CBC WITH DIFFERENTIAL Routine 03/26/2005 5:00 AM CDT BASIC METABOLIC PANEL Routine 03/26/2005 5:00 AM CDT POC GLUCOSE Routine 03/25/2005 8:54 PM CDT POC GLUCOSE Routine 03/25/2005 4:37 PM CDT BASIC METABOLIC PANEL Routine 03/25/2005 2:00 PM CDT POC GLUCOSE Routine 03/25/2005 11:55 AM CDT POC GLUCOSE Routine 03/25/2005 6:52 AM CDT POC GLUCOSE Routine 03/25/2005 6:07 AM CDT BASIC METABOLIC PANEL Routine 03/25/2005 4:24 AM CDT POC GLUCOSE Routine 03/24/2005 8:17 PM CDT POTASSIUM LEVEL Routine 03/24/2005 5:10 PM CDT POC GLUCOSE Routine 03/24/2005 4:18 PM CDT POC GLUCOSE Routine 03/24/2005 11:41 AM CDT POC GLUCOSE Routine 03/24/2005 5:54 AM CDT CBC WITH DIFFERENTIAL Routine 03/24/2005 5:12 AM CDT CBC WITH DIFFERENTIAL Routine 03/24/2005 5:12 AM CDT BASIC METABOLIC PANEL Routine 03/24/2005 5:12 AM CDT POC GLUCOSE Routine 03/23/2005 8:53 PM CDT POC GLUCOSE Routine 03/23/2005 4:38 PM CDT CVR ONLY, CKMB/CK Routine 03/23/2005 9:2 0 AM CDT PT AND APTT Routine 03/23/2005 4:12 AM CDT CBC WITH DIFFERENTIAL Routine 03/23/2005 4:12 AM CDT CBC WITH DIFFERENTIAL Routine 03/23/2005 4:12 AM CDT MAGNESIUM LEVEL Routine 03/23/2005 4:12 AM CDT COMPREHENSIVE METABOLIC PANEL Routine 03/23/2005 4:12 AM CDT CVR ONLY, CKMB/CK Routine 03/23/2005 12: 17 AM CDT POTASSIUM LEVEL Routine 03/22/2005 8:55 PM CDT MAGNESIUM LEVEL Routine 03/22/2005 8:55 PM CDT POC, BLOOD GASES Routine 03/22/2005 8:49 PM CDT POC, BLOOD GASES Routine 03/22/2005 4:14 PM CDT CVR ONLY, CKMB/CK Routine 03/22/2005 4:1 1 PM CDT PT AND APTT Routine 03/22/2005 4:11 PM CDT CBC WITH DIFFERENTIAL Routine 03/22/2005 4:11 PM CDT CBC WITH DIFFERENTIAL Routine 03/22/2005 4:11 PM CDT MAGNESIUM LEVEL Routine 03/22/2005 4:11 PM CDT BASIC METABOLIC PANEL Routine 03/22/2005 4:11 PM CDT POC GLUCOSE Routine 03/22/2005 7:34 AM CDT URINALYSIS WITH REFLEX CULTURE Routine 03/17/2005 11:58 AM CDT URINALYSIS W/REFLEX MICROSCOPIC Routine 03/17/2005 11:58 AM CDT COMPREHENSIVE METABOLIC PANEL Routine 03/17/2005 11:35 AM CDT documented in this encounter Results * (ABNORMAL) POC GLUCOSE (03/26/2005 5:13 AM CDT) GLUCOSE POC 121(H) 65 - 109 mg/dL INTERFACE SYSTEM 03/26/2005 5:13 AM CDT Isael Gabriel Jr., MD POINT OF CARE TESTING F inal Result Performing Organization Address [facility] de Phone Number INTERFACE SYSTEM Refer to clinic/hospital department * (ABNORMAL) CBC WITH DIFFERENTIAL (03/26/2005 5:00 AM CDT) Pathologist [facility] NEUTROPHILS 52 45 - 70 % INTERFAC E SYSTEM LYMPHOCYTES 29 16 - 45 % INTERFAC E SYSTEM MONOCYTES 15(H) 3 - 13 % INTERFACE SYSTEM EOSINOPHILS 4 0 - 7 % INTERFAC E SYSTEM BASOPHILS 1 0 - 2 % INTERFACE SYSTEM NEUTROPHIL ABSOLUTE 3.59 1.90 - 7.00 K/uL INTERFACE SYSTEM LYMPHOCYTE ABSOLUTE 2.01 0.70 - 4.50 K/uL INTERFACE SYSTEM MONOCYTE ABSOLUTE 1.07 0.10 - 1.30 K/uL INTERFACE SYSTEM EOSINOPHIL ABSOLUTE 0.24 0.00 - 0.70 K/uL INTERFACE SYSTEM BASOPHILS ABSOLUTE 0.04 0.00 - 0.20 K/uL INTERFACE SYSTEM 03/26/2005 5:00 AM CDT Isael Gabriel Jr., MD HEMATOLOGY ORDERABLES F inal Result Performing Organization Address [facility] Phone Number INTERFACE SYSTEM Refer to clinic/hospital department * (ABNORMAL) CBC WITH DIFFERENTIAL (03/26/2005 5:00 AM CDT) WBC 7.0 4.0 - 9.8 K/uL INTERFACE SYSTEM RBC 3.77(L) 4.50 - 5.40 M/uL INTERFACE SYSTEM HEMOGLOBIN 11.3(L) 13.6 - 16.5 g/dL INTERFACE SYSTEM HEMATOCRIT 33.9(L) 40.0 - 48.0 % INTERFACE SYSTEM MCV 89.9 82.0 - 99.0 fL INTERFACE SYSTEM MCH 30.0 27.2 - 32.6 pg INTERFACE SYSTEM MCHC 33.3 31.5 - 35.5 % INTERFACE SYSTEM RDW 13.8 11.5 - 14.5 % INTERFACE SYSTEM RDW-STDEV 45.5 37.1 - 48.7 fL INTERFACE SYSTEM PLATELETS 206 140 - 350 K/uL INTERFACE SYSTEM MPV 10.8 9.3 - 12.4 fL INTERFACE SYSTEM 03/26/2005 5:00 AM CDT Isael Gabriel Jr., MD HEMATOLOGY ORDERABLES F inal Result Performing Organization Address [facility] Phone Number INTERFACE SYSTEM Refer to clinic/hospital department * (ABNORMAL) BASIC METABOLIC PANEL (03/26/2005 5:00 AM CDT) GLUCOSE 132(H) 65 - 109 mg/dL INTERFACE SYSTEM CREATININE 1.0 0.5 - 1.3 mg/dL INTERFACE SYSTEM CALCIUM 8.7 8.6 - 10.2 mg/dL INTERFACE SYSTEM BUN 17 6 - 20 mg/dL INTERFACE SYSTEM SODIUM 137 135 - 145 mmol/L INTERFACE SYSTEM POTASSIUM 3.4(L) 3.5 - 4.9 mmol/L INTERFACE SYSTEM CHLORIDE 97 96 - 108 mmol/L INTERFACE SYSTEM CO2 30 22 - 30 mmol/L INTERFACE SYSTEM 03/26/2005 5:00 AM CDT Isael Gabriel Jr., MD CHEMISTRY ORDERABLES Fi nal Result Performing Organization Address [facility] Phone Number INTERFACE SYSTEM Refer to clinic/hospital department * (ABNORMAL) POC GLUCOSE (03/25/2005 8:54 PM CDT) COMMENT, GLU POC Notified RN INTERFACE SYSTEM GLUCOSE POC 235(H) 65 - 109 mg/dL INTERFACE SYSTEM 03/25/2005 8:54 PM CDT Isael Gabriel Jr., MD POINT OF CARE TESTING F inal Result Performing Organization Address [facility] Phone Number INTERFACE SYSTEM Refer to clinic/hospital department * (ABNORMAL) POC GLUCOSE (03/25/2005 4:37 PM CDT) GLUCOSE POC 129(H) 65 - 109 mg/dL INTERFACE SYSTEM 03/25/2005 4:37 PM CDT us Isael Gabriel Jr., MD POINT OF CARE TESTING F inal Result Performing Organization Address [facility] Phone Number INTERFACE SYSTEM Refer to clinic/hospital department * (ABNORMAL) BASIC METABOLIC PANEL (03/25/2005 2:00 PM CDT) GLUCOSE 177(H) 65 - 109 mg/dL INTERFACE SYSTEM CREATININE 1.2 0.5 - 1.3 mg/dL INTERFACE SYSTEM CALCIUM 8.4(L) 8.6 - 10.2 mg/dL INTERFACE SYSTEM BUN 18 6 - 20 mg/dL INTERFACE SYSTEM SODIUM 132(L) 135 - 145 mmol/L INTERFACE SYSTEM POTASSIUM 3.7 3.5 - 4.9 mmol/L INTERFACE SYSTEM CHLORIDE 94(L) 96 - 108 mmol/L INTERFACE SYSTEM CO2 29 22 - 30 mmol/L INTERFACE SYSTEM 03/25/2005 2:00 PM CDT us Jorge Patel CHEMISTRY ORDERABLES Final Resu lt Performing Organization Address [facility] Phone Number INTERFACE SYSTEM Refer to clinic/hospital department * (ABNORMAL) POC GLUCOSE (03/25/2005 11:55 AM CDT) GLUCOSE POC 150(H) 65 - 109 mg/dL INTERFACE SYSTEM 03/25/2005 11:5 5 AM CDT us Isael Gabriel Jr., MD POINT OF CARE TESTING F inal Result Performing Organization Address [facility] Phone Number INTERFACE SYSTEM Refer to clinic/hospital department * (ABNORMAL) POC GLUCOSE (03/25/2005 6:52 AM CDT) COMMENT, GLU POC Notified RN INTERFACE SYSTEM GLUCOSE POC 229(H) 65 - 109 mg/dL INTERFACE SYSTEM 03/25/2005 6:52 AM CDT Isael Gabriel Jr., MD POINT OF CARE TESTING F inal Result Performing Organization Address [facility] Phone Number INTERFACE SYSTEM Refer to clinic/hospital department * (ABNORMAL) POC GLUCOSE (03/25/2005 6:07 AM CDT) COMMENT, GLU POC Notified RN INTERFACE SYSTEM COMMENT 3, GLU POC To Be Repeated INTERFACE SYSTEM GLUCOSE POC 46(AA) 65 - 109 mg/dL INTERFACE SYSTEM 03/25/2005 6:07 AM CDT us Isael Gabriel Jr., MD POINT OF CARE TESTING F inal Result Performing Organization Address [facility] Phone Number INTERFACE SYSTEM Refer to clinic/hospital department * (ABNORMAL) BASIC METABOLIC PANEL (03/25/2005 4:24 AM CDT) CREATININE 1.3 0.5 - 1.3 mg/dL INTERFACE SYSTEM CALCIUM 8.5(L) 8.6 - 10.2 mg/dL INTERFACE SYSTEM BUN 15 6 - 20 mg/dL INTERFACE SYSTEM SODIUM 134(L) 135 - 145 mmol/L INTERFACE SYSTEM POTASSIUM 3.5 3.5 - 4.9 mmol/L INTERFACE SYSTEM CHLORIDE 97 96 - 108 mmol/L INTERFACE SYSTEM CO2 31(H) 22 - 30 mmol/L INTERFACE SYSTEM GLUCOSE 47(AA) 65 - 109 mg/dL INTERFACE SYSTEM Comment: Results confirmed by 2nd methodology. Results called to jewell at 03/25/2005 6:31 AM and read back verified. 03/25/2005 4:24 AM CDT David Mcneill CHEMISTRY ORDERABLES Final Resul t Performing Organization Address [facility] de Phone Number INTERFACE SYSTEM Refer to clinic/hospital department * (ABNORMAL) POC GLUCOSE (03/24/2005 8:17 PM CDT) GLUCOSE POC 176(H) 65 - 109 mg/dL INTERFACE SYSTEM 03/24/2005 8:17 PM CDT Isael Gabriel Jr., MD POINT OF CARE TESTING F inal Result Performing Organization Address [facility]/ZIP Co de Phone Number INTERFACE SYSTEM Refer to clinic/hospital department * POTASSIUM LEVEL (03/24/2005 5:10 PM CDT) POTASSIUM 4.6 3.5 - 4.9 mmol/L INTERFACE SYSTEM 03/24/2005 5:10 PM CDT David Mcneill CHEMISTRY ORDERABLES Final Resul t Performing Organization Address [facility] Phone Number INTERFACE SYSTEM Refer to clinic/hospital department * POC GLUCOSE (03/24/2005 4:18 PM CDT) GLUCOSE POC 87 65 - 109 mg/dL INTERFACE SYSTEM 03/24/2005 4:18 PM CDT us Isael Gabriel Jr., MD POINT OF CARE TESTING F inal Result Performing Organization Address [facility] Phone Number INTERFACE SYSTEM Refer to clinic/hospital department * (ABNORMAL) POC GLUCOSE (03/24/2005 11:41 AM CDT) GLUCOSE POC 157(H) 65 - 109 mg/dL INTERFACE SYSTEM 03/24/2005 11:4 1 AM CDT Isael Gabriel Jr., MD POINT OF CARE TESTING F inal Result Performing Organization Address [facility] Phone Number INTERFACE SYSTEM Refer to clinic/hospital department * POC GLUCOSE (03/24/2005 5:54 AM CDT) COMMENT, GLU POC Notified RN INTERFACE SYSTEM GLUCOSE POC 85 65 - 109 mg/dL INTERFACE SYSTEM 03/24/2005 5:54 AM CDT us Isael Gabriel Jr., MD POINT OF CARE TESTING F inal Result Performing Organization Address [facility] Phone Number INTERFACE SYSTEM Refer to clinic/hospital department * (ABNORMAL) CBC WITH DIFFERENTIAL (03/24/2005 5:12 AM CDT) [facility] NEUTROPHILS 67 45 - 70 % INTERFAC E SYSTEM LYMPHOCYTES 17 16 - 45 % INTERFAC E SYSTEM MONOCYTES 15(H) 3 - 13 % INTERFACE SYSTEM EOSINOPHILS 1 0 - 7 % INTERFAC E SYSTEM BASOPHILS 0 0 - 2 % INTERFACE SYSTEM NEUTROPHIL ABSOLUTE 7.99(H) 1.90 - 7.00 K/uL INTERFACE SYSTEM LYMPHOCYTE ABSOLUTE 2.00 0.70 - 4.50 K/uL INTERFACE SYSTEM MONOCYTE ABSOLUTE 1.83(H) 0.10 - 1.30 K/uL INTERFACE SYSTEM EOSINOPHIL ABSOLUTE 0.16 0.00 - 0.70 K/uL INTERFACE SYSTEM BASOPHILS ABSOLUTE 0.02 0.00 - 0.20 K/uL INTERFACE SYSTEM 03/24/2005 5:12 AM CDT Isael Gabriel Jr., MD HEMATOLOGY ORDERABLES F inal Result Performing Organization Address [facility] de Phone Number INTERFACE SYSTEM Refer to clinic/hospital department * (ABNORMAL) CBC WITH DIFFERENTIAL (03/24/2005 5:12 AM CDT) [facility] WBC 12.0(H) 4.0 - 9.8 K/uL INTERFACE SYSTEM RBC 3.63(L) 4.50 - 5.40 M/uL INTERFACE SYSTEM HEMOGLOBIN 11.0(L) 13.6 - 16.5 g/dL INTERFACE SYSTEM HEMATOCRIT 33.0(L) 40.0 - 48.0 % INTERFACE SYSTEM MCV 90.9 82.0 - 99.0 fL INTERFACE SYSTEM MCH 30.3 27.2 - 32.6 pg INTERFACE SYSTEM MCHC 33.3 31.5 - 35.5 % INTERFACE SYSTEM RDW 14.0 11.5 - 14.5 % INTERFACE SYSTEM RDW-STDEV 46.4 37.1 - 48.7 fL INTERFACE SYSTEM PLATELETS 160 140 - 350 K/uL INTERFACE SYSTEM MPV 10.9 9.3 - 12.4 fL INTERFACE SYSTEM 03/24/2005 5:12 AM CDT Isael Gabriel Jr., MD HEMATOLOGY ORDERABLES F inal Result Performing Organization Address [facility] de Phone Number INTERFACE SYSTEM Refer to clinic/hospital department * (ABNORMAL) BASIC METABOLIC PANEL (03/24/2005 5:12 AM CDT) GLUCOSE 91 65 - 109 mg/dL INTERFACE SYSTEM CREATININE 1.0 0.5 - 1.3 mg/dL INTERFACE SYSTEM CALCIUM 8.0(L) 8.6 - 10.2 mg/dL INTERFACE SYSTEM BUN 16 6 - 20 mg/dL INTERFACE SYSTEM SODIUM 134(L) 135 - 145 mmol/L INTERFACE SYSTEM POTASSIUM 4.3 3.5 - 4.9 mmol/L INTERFACE SYSTEM CHLORIDE 102 96 - 108 mmol/L INTERFACE SYSTEM CO2 26 22 - 30 mmol/L INTERFACE SYSTEM 03/24/2005 5:12 AM CDT us Isael Gabriel Jr., MD CHEMISTRY ORDERABLES Fi nal Result Performing Organization Address [facility] Phone Number INTERFACE SYSTEM Refer to clinic/hospital department * (ABNORMAL) POC GLUCOSE (03/23/2005 8:53 PM CDT) GLUCOSE POC 175(H) 65 - 109 mg/dL INTERFACE SYSTEM 03/23/2005 8:53 PM CDT us Isael Gabriel Jr., MD POINT OF CARE TESTING F inal Result Performing Organization Address [facility] Phone Number INTERFACE SYSTEM Refer to clinic/hospital department * (ABNORMAL) POC GLUCOSE (03/23/2005 4:38 PM CDT) GLUCOSE POC 198(H) 65 - 109 mg/dL INTERFACE SYSTEM 03/23/2005 4:38 PM CDT us Isael Gabriel Jr., MD POINT OF CARE TESTING F inal Result Performing Organization Address [facility] de Phone Number INTERFACE SYSTEM Refer to clinic/hospital department * (ABNORMAL) CVR ONLY, CKMB/CK (03/23/2005 9:20 AM CDT) CKMB 14.9(AA) <=6.7 ng/mL INTERFACE SYSTEM Comment:Persistent abnormal result CKMB INTERP See Below INTERFAC E SYSTEM Comment:Elevated CKMB,Consis tent with Myocardial Injury CARDIAC RELATIVE INDEX 2.2 <=4.0 INTERFACE SYSTEM CK 666(H) 10 - 170 U/L INTERFACE SYSTEM 03/23/2005 9:20 AM CDT Isael Gabriel Jr., MD CHEMISTRY ORDERABLES Fi nal Result Performing Organization Address [facility] Phone Number INTERFACE SYSTEM Refer to clinic/hospital department * MAGNESIUM LEVEL (03/23/2005 4:12 AM CDT) MAGNESIUM 2.2 1.5 - 2.5 mg/dL INTERFACE SYSTEM 03/23/2005 4:12 AM CDT Isael Gabriel Jr., MD CHEMISTRY ORDERABLES Fi nal Result Performing Organization Address [facility] Phone Number INTERFACE SYSTEM Refer to clinic/hospital department * (ABNORMAL) CBC WITH DIFFERENTIAL (03/23/2005 4:12 AM CDT) NEUTROPHILS 87(H) 45 - 70 % INTERFAC E SYSTEM LYMPHOCYTES 5(L) 16 - 45 % INTERFAC E SYSTEM MONOCYTES 9 3 - 13 % INTERFACE SYSTEM EOSINOPHILS 0 0 - 7 % INTERFAC E SYSTEM BASOPHILS 0 0 - 2 % INTERFACE SYSTEM NEUTROPHIL ABSOLUTE 12.69(H) 1.90 - 7.00 K/uL INTERFACE SYSTEM LYMPHOCYTE ABSOLUTE 0.66(L) 0.70 - 4.50 K/uL INTERFACE SYSTEM MONOCYTE ABSOLUTE 1.29 0.10 - 1.30 K/uL INTERFACE SYSTEM EOSINOPHIL ABSOLUTE 0.00 0.00 - 0.70 K/uL INTERFACE SYSTEM BASOPHILS ABSOLUTE 0.01 0.00 - 0.20 K/uL INTERFACE SYSTEM 03/23/2005 4:12 AM CDT Isael Gabriel Jr., MD HEMATOLOGY ORDERABLES F inal Result Performing Organization Address [facility] de Phone Number INTERFACE SYSTEM Refer to clinic/hospital department * (ABNORMAL) CBC WITH DIFFERENTIAL (03/23/2005 4:12 AM CDT) WBC 14.7(H) 4.0 - 9.8 K/uL INTERFACE SYSTEM RBC 3.79(L) 4.50 - 5.40 M/uL INTERFACE SYSTEM HEMOGLOBIN 11.2(L) 13.6 - 16.5 g/dL INTERFACE SYSTEM HEMATOCRIT 33.7(L) 40.0 - 48.0 % INTERFACE SYSTEM MCV 88.9 82.0 - 99.0 fL INTERFACE SYSTEM MCH 29.6 27.2 - 32.6 pg INTERFACE SYSTEM MCHC 33.2 31.5 - 35.5 % INTERFACE SYSTEM RDW 13.7 11.5 - 14.5 % INTERFACE SYSTEM RDW-STDEV 44.9 37.1 - 48.7 fL INTERFACE SYSTEM PLATELETS 153 140 - 350 K/uL INTERFACE SYSTEM MPV 10.8 9.3 - 12.4 fL INTERFACE SYSTEM 03/23/2005 4:12 AM CDT Isael Gabriel Jr., MD HEMATOLOGY ORDERABLES F inal Result INTERFACE SYSTEM Refer to clinic/hospital department * (ABNORMAL) PT AND APTT (03/23/2005 4:12 AM CDT) PROTIME 17.3(H) 12.9 - 15.7 Seconds INTERFACE SYSTEM INR 1.3(H) 0.9 - 1.1 INTERFACE SYSTEM Comment: INR Therapeutic Range: Adult: 2.0 - 3.0 for pulmonary embolism or prophylaxis against venous thrombosis or systemic embolization. 2.0 - 3.0 for patients with tissue heart valves. 2.5 - 3.5 for patients with mechanical heart valves or post NM. Pediatric (12 years and under): 1.5 - 3.0 Although the target range in children is not well established , INR values of 1.5 - 3.0 are recommended for most patients. Higher values have been used in children with prosthetic cardiac valves and hereditary clotting disorders. (<3 days) therapeutic ranges have not been established. PTT 33.9 25.0 - 35.0 Seconds INTERFACE SYSTEM Comment: PTT Therapeutic Range: Heparin Level PTT (seconds) <0.10 units/mL <45 0.10 - 0.30 units/mL 45 - 65 0.30 - 0.70 units/mL* 65 - 106* 0.70 - 1.00 units/mL 106 - 137 *corresponds to therapeutic range for unfractionated heparin 03/23/2005 4:12 AM CDT us Isael Gabriel Jr., MD HEMATOLOGY ORDERABLES F inal Result Performing Organization Address [facility] Phone Number INTERFACE SYSTEM Refer to clinic/hospital department * (ABNORMAL) COMPREHENSIVE METABOLIC PANEL (03/23/2005 4:12 AM CDT) GLUCOSE 261(H) 65 - 109 mg/dL INTERFACE SYSTEM CREATININE 1.0 0.5 - 1.3 mg/dL INTERFACE SYSTEM AST 32 12 - 38 U/L INTERFACE SYSTEM ALKALINE PHOSPHATASE 36(L) 40 - 129 U/L INTERFACE SYSTEM BUN 12 6 - 20 mg/dL INTERFACE SYSTEM BILIRUBIN TOTAL 0.7 0.2 - 1.0 mg/dL INTERFACE SYSTEM ALBUMIN 2.9(L) 3.4 - 4.8 g/dL INTERFACE SYSTEM TOTAL PROTEIN 5.1(L) 6.3 - 8.6 g/dL INTERFACE SYSTEM ALT 19 0 - 41 U/L INTERFACE SYSTEM POTASSIUM 4.3 3.5 - 4.9 mmol/L INTERFACE SYSTEM CHLORIDE 105 96 - 108 mmol/L INTERFACE SYSTEM CO2 20(L) 22 - 30 mmol/L INTERFACE SYSTEM CALCIUM 7.3(L) 8.6 - 10.2 mg/dL INTERFACE SYSTEM SODIUM 135 135 - 145 mmol/L INTERFACE SYSTEM 03/23/2005 4:12 AM CDT us Isael Gabriel Jr., MD CHEMISTRY ORDERABLES Fi nal Result Performing Organization Address [facility] de Phone Number INTERFACE SYSTEM Refer to clinic/hospital department * (ABNORMAL) CVR ONLY, CKMB/CK (03/23/2005 12:17 AM CDT) CKMB 26.5(AA) <=6.7 ng/mL INTERFACE SYSTEM Comment:Persistent abnormal result CKMB INTERP See Below INTERFAC E SYSTEM Comment:Elevated CKMB,Consis tent with Myocardial Injury CARDIAC RELATIVE INDEX 4.0 <=4.0 INTERFACE SYSTEM CK 668(H) 10 - 170 U/L INTERFACE SYSTEM 03/23/2005 12:1 7 AM CDT Isael Gabriel Jr., MD CHEMISTRY ORDERABLES Fi nal Result Performing Organization Address [facility] Phone Number INTERFACE SYSTEM Refer to clinic/hospital department * MAGNESIUM LEVEL (03/22/2005 8:55 PM CDT) Pathologist [facility] MAGNESIUM 2.1 1.5 - 2.5 mg/dL INTERFACE SYSTEM 03/22/2005 8:55 PM CDT Isael Gabriel Jr., MD CHEMISTRY ORDERABLES Fi nal Result Performing Organization Address [facility] Phone [facility] INTERFACE SYSTEM Refer to clinic/hospital department * POTASSIUM LEVEL (03/22/2005 8:55 PM CDT) Pathologist [facility] POTASSIUM 4.4 3.5 - 4.9 mmol/L INTERFACE SYSTEM 03/22/2005 8:55 PM CDT Isael Gabriel Jr., MD CHEMISTRY ORDERABLES Fi nal Result Performing Organization Address [facility] Phone [facility] INTERFACE SYSTEM Refer to clinic/hospital department * (ABNORMAL) POC RT, BLOOD GASES (03/22/2005 8:49 PM CDT) PH ARTERIAL 7.33(L) 7.35 - 7.45 INTERFACE SYSTEM PCO2 ARTERIAL 41 35 - 48 mm Hg INTERFACE SYSTEM PO2 ARTERIAL 87 83 - 108 mm Hg INTERFACE SYSTEM O2 SAT EST ABG POC 96 95 - 99 % INTERFACE SYSTEM PATIENT'S TEMPERATURE 37.0 Degree C INTERFACE SYSTEM BASE EXCESS ABG -4.1(L) -2.0 - 3.0 mmol/L INTERFACE SYSTEM HCO3 ARTERIAL 22 22 - 26 mmol/L INTERFACE SYSTEM FIO2 35 INTERFACE SYSTEM OXYGEN MODE SIMV PS8 INTERFAC E SYSTEM PEEP POC 5 INTERFACE SYSTEM 03/22/2005 8:49 PM CDT us Isael Gabriel Jr., MD CHEMISTRY ORDERABLES nal Result Performing Organization Address [facility] Co de Phone Number INTERFACE SYSTEM Refer to clinic/hospital department * (ABNORMAL) POC RT, BLOOD GASES (03/22/2005 4:14 PM CDT) PH ARTERIAL 7.47(H) 7.35 - 7.45 INTERF CRISEDLA SYSTEM PCO2 ARTERIAL 30(L) 35 - 48 mm Hg INTERFACE SYSTEM PO2 ARTERIAL 167(H) 83 - 108 mm Hg INTERFACE SYSTEM O2 SAT EST ABG POC 100(H) 95 - 99 % INTERFACE SYSTEM PATIENT'S TEMPERATURE 37.0 Degree C INTERFACE SYSTEM BASE EXCESS ABG -1.4 -2.0 - 3.0 mmol/L INTERFACE SYSTEM HCO3 ARTERIAL 22 22 - 26 mmol/L INTERFACE SYSTEM SODIUM POC 134(L) 135 - 145 mmol/L INTERFACE SYSTEM POTASSIUM POC 3.8 3.5 - 4.9 mmol/L INTERFACE SYSTEM CALICUM IONIZED, WHOLE BLOOD 4.77 4.76 - 5.16 mg/dL INTERFACE SYSTEM HEMATOCRIT POC 28.0(L) 40.0 - 48.0 % INTERFACE SYSTEM FIO2 60 INTERFACE SYSTEM OXYGEN MODE SIMV INTERFAC E SYSTEM PEEP POC 5 INTERFACE SYSTEM 03/22/2005 4:14 PM CDT Isael Gabriel Jr., MD CHEMISTRY ORDERABLES nal Result Performing Organization Address [facility] Phone Number INTERFACE SYSTEM Refer to clinic/hospital department * (ABNORMAL) CVR ONLY, CKMB/CK (03/22/2005 4:11 PM CDT) CKMB 23.8(AA) <=6.7 ng/mL INTERFACE SYSTEM Comment:Results called to Al lie at 03/22/2005 5:06 PM and read back verified. CKMB INTERP See Below INTERFAC E SYSTEM Comment:Elevated CKMB,Consis tent with Myocardial Injury. CARDIAC RELATIVE INDEX 6.4(H) <=4.0 INTERFACE SYSTEM CK 371(H) 10 - 170 U/L INTERFACE SYSTEM 03/22/2005 4:11 PM CDT us Isael Gabriel Jr., MD CHEMISTRY ORDERABLES Fi nal Result Performing Organization Address [facility] de Phone Number INTERFACE SYSTEM Refer to clinic/hospital department * (ABNORMAL) CBC WITH DIFFERENTIAL (03/22/2005 4:11 PM CDT) NEUTROPHIL ABSOLUTE 12.84(H) 1.90 - 7.00 K/uL INTERFACE SYSTEM LYMPHOCYTE ABSOLUTE 1.66 0.70 - 4.50 K/uL INTERFACE SYSTEM MONOCYTE ABSOLUTE 0.45 0.10 - 1.30 K/uL INTERFACE SYSTEM EOSINOPHIL ABSOLUTE 0.15 0.00 - 0.70 K/uL INTERFACE SYSTEM BASOPHILS ABSOLUTE 0.00 0.00 - 0.20 K/uL INTERFACE SYSTEM NEUTROPHILS, SEG 81(H) 45 - 70 % INT ERFACE SYSTEM BANDS 4 0 - 5 % INTERFACE SYSTEM LYMPHOCYTES 11(L) 16 - 45 % INTERFAC E SYSTEM MONOCYTES 3 3 - 13 % INTERFACE SYSTEM EOSINOPHILS 1 0 - 7 % INTERFAC E SYSTEM BASOPHILS 0 0 - 2 % INTERFACE SYSTEM PLATELET EST. Normal Normal INTERF CRISELDA SYSTEM ANISOCYTOSIS Slight INTERFA CE SYSTEM POIKILOCYTES Slight INTERFA CE SYSTEM 03/22/2005 4:11 PM CDT us Isael Gabriel Jr., MD HEMATOLOGY ORDERABLES F inal Result Performing Organization Address [facility] Phone Number INTERFACE SYSTEM Refer to clinic/hospital department * (ABNORMAL) CBC WITH DIFFERENTIAL (03/22/2005 4:11 PM CDT) WBC 15.1(H) 4.0 - 9.8 K/uL INTERFACE SYSTEM RBC 3.45(L) 4.50 - 5.40 M/uL INTERFACE SYSTEM HEMOGLOBIN 10.6(L) 13.6 - 16.5 g/dL INTERFACE SYSTEM HEMATOCRIT 30.1(L) 40.0 - 48.0 % INTERFACE SYSTEM MCV 87.2 82.0 - 99.0 fL INTERFACE SYSTEM MCH 30.7 27.2 - 32.6 pg INTERFACE SYSTEM MCHC 35.2 31.5 - 35.5 % INTERFACE SYSTEM RDW 13.7 11.5 - 14.5 % INTERFACE SYSTEM RDW-STDEV 43.6 37.1 - 48.7 fL INTERFACE SYSTEM PLATELETS 151 140 - 350 K/uL INTERFACE SYSTEM MPV 9.8 9.3 - 12.4 fL INTERFACE SYSTEM 03/22/2005 4:11 PM CDT us Isael Gabriel Jr., MD HEMATOLOGY ORDERABLES F inal Result Performing Organization Address City/[facility] Phone Number INTERFACE SYSTEM Refer to clinic/hospital department * (ABNORMAL) PT AND APTT (03/22/2005 4:11 PM CDT) PROTIME 19.1(H) 12.9 - 15.7 Seconds INTERFACE SYSTEM INR 1.5(H) 0.9 - 1.1 INTERFACE SYSTEM Comment: INR Therapeutic Range: Adult: 2.0 - 3.0 for pulmonary embolism or prophylaxis against venous thrombosis or systemic embolization. 2.0 - 3.0 for patients with tissue heart valves. 2.5 - 3.5 for patients with mechanical heart valves or post NM. Pediatric (12 years and under): 1.5 - 3.0 Although the target range in children is not well established , INR values of 1.5 - 3.0 are recommended for most patients. Higher values have been used in children with prosthetic cardiac valves and hereditary clotting disorders. (<3 days) therapeutic ranges have not been established. PTT 52.6(H) 25.0 - 35.0 Seconds INTERFACE SYSTEM Comment: PTT Therapeutic Range: Heparin Level PTT (seconds) <0.10 units/mL <45 0.10 - 0.30 units/mL 45 - 65 0.30 - 0.70 units/mL* 65 - 106* 0.70 - 1.00 units/mL 106 - 137 *corresponds to therapeutic range for unfractionated heparin 03/22/2005 4:11 PM CDT us Isael Gabriel Jr., MD HEMATOLOGY ORDERABLES F inal Result Performing Organization Address [facility] Phone Number INTERFACE SYSTEM Refer to clinic/hospital department * MAGNESIUM LEVEL (03/22/2005 4:11 PM CDT) MAGNESIUM 2.1 1.5 - 2.5 mg/dL INTERFACE SYSTEM 03/22/2005 4:11 PM CDT Isael Gabriel Jr., MD CHEMISTRY ORDERABLES Fi nal Result Performing Organization Address [facility] Number INTERFACE SYSTEM Refer to clinic/hospital department * (ABNORMAL) BASIC METABOLIC PANEL (03/22/2005 4:11 PM CDT) GLUCOSE 112(H) 65 - 109 mg/dL INTERFACE SYSTEM CREATININE 0.8 0.5 - 1.3 mg/dL INTERFACE SYSTEM CALCIUM 7.7(L) 8.6 - 10.2 mg/dL INTERFACE SYSTEM BUN 14 6 - 20 mg/dL INTERFACE SYSTEM SODIUM 137 135 - 145 mmol/L INTERFACE SYSTEM POTASSIUM 3.8 3.5 - 4.9 mmol/L INTERFACE SYSTEM CHLORIDE 111(H) 96 - 108 mmol/L INTERFACE SYSTEM CO2 22 22 - 30 mmol/L INTERFACE SYSTEM 03/22/2005 4:11 PM CDT Isael Gabriel Jr., MD CHEMISTRY ORDERABLES Fi nal Result Performing Organization Address [facility] Phone Number INTERFACE SYSTEM Refer to clinic/hospital department * POC GLUCOSE (03/22/2005 7:34 AM CDT) GLUCOSE POC 88 65 - 109 mg/dL INTERFACE SYSTEM 03/22/2005 7:34 AM CDT Isael Gabriel Jr., MD POINT OF CARE TESTING F inal Result Performing Organization Address [facility] Phone Number INTERFACE SYSTEM Refer to clinic/hospital department * (ABNORMAL) URINALYSIS (03/17/2005 11:58 AM CDT) COLOR UA Yellow INTERFACE SYSTEM CLARITY UA Clear Clear INTERFACE SYSTEM SPECIFIC GRAVITY UA 1.015 1.001 - 1.035 INTERFACE SYSTEM PH UA 6.5 5.0 - 8.0 INTERFACE SYSTEM LEUKOCYTE ESTERASE UA Negative Negative INTERFACE SYSTEM NITRITE UA Negative Negative INTERFACE SYSTEM PROTEIN UA Negative Negative INTERFACE SYSTEM GLUCOSE UA 4+(A) Negative INTERFACE SYSTEM KETONES UA Negative Negative INTERFACE SYSTEM UROBILINOGEN UA <1 <1 mg/dL INTE RFACE SYSTEM Comment: Effective 01/25/05, Urobilinogen will be reported in mg/dL resulting in a n increased sensitivity at lower urobilinogen levels. Previously, results were reported in Aide unit(EU)/dL. 1+ results previously reported as 1 EU/dL (normal) will become 2 mg/dL (abnormal). BILIRUBIN UA Negative Negative INTERFA CE SYSTEM BLOOD UA Negative Negative INTERFACE SYSTEM WBC UA 1 0 - 3 /HPF INTERFACE SYSTEM RBC UA <1 0 - 3 /HPF INTERFACE SYSTEM HYALINE CAST 8(H) 0 - 2 /LPF INTERF CRISELDA SYSTEM 03/17/2005 11:5 8 AM CDT Isael Gabriel Jr., MD URINE ORDERABLES Final Result Performing Organization Address [facility] Phone Number INTERFACE SYSTEM Refer to clinic/hospital department * URINALYSIS WITH REFLEX CULTURE (03/17/2005 11:58 AM CDT) URINE CULTURE ORDER Not indicated INTERFACE SYSTEM Comment: Criteria for a reflex culture include one or more of the following: Abn ormal nitrite, leukocyte esterase, WBCs or RBCs. Lack of qualifying criteria does not exclude the possiblity of a urinary tract infection. Dilute urine, drug interference, etc. may decrease the sensitivity of the criteria analytes. 03/17/2005 11:5 8 AM CDT Isael Gabriel Jr., MD URINE ORDERABLES Final Result Performing Organization Address [facility] Phone Number INTERFACE SYSTEM Refer to clinic/hospital department * (ABNORMAL) COMPREHENSIVE METABOLIC PANEL (03/17/2005 11:35 AM CDT) GLUCOSE 263(H) 65 - 109 mg/dL INTERFACE SYSTEM CREATININE 1.2 0.5 - 1.3 mg/dL INTERFACE SYSTEM CALCIUM 9.0 8.6 - 10.2 mg/dL INTERFACE SYSTEM AST 25 12 - 38 U/L INTERFACE SYSTEM ALKALINE PHOSPHATASE 57 40 - 129 U/L INTERFACE SYSTEM BUN 18 6 - 20 mg/dL INTERFACE SYSTEM BILIRUBIN TOTAL 0.5 0.2 - 1.0 mg/dL INTERFACE SYSTEM ALBUMIN 4.3 3.4 - 4.8 g/dL INTERFACE SYSTEM TOTAL PROTEIN 7.6 6.3 - 8.6 g/dL INTERFACE SYSTEM ALT 31 0 - 41 U/L INTERFACE SYSTEM SODIUM 134(L) 135 - 145 mmol/L INTERFACE SYSTEM POTASSIUM 4.4 3.5 - 4.9 mmol/L INTERFACE SYSTEM CHLORIDE 99 96 - 108 mmol/L INTERFACE SYSTEM CO2 26 22 - 30 mmol/L INTERFACE SYSTEM 03/17/2005 11:3 5 AM CDT us Isael Gabriel Jr., MD CHEMISTRY ORDERABLES Fi nal Result INTERFACE SYSTEM Refer to clinic/hospital department documented in this encounter Visit Diagnoses Diagnosis Coronary atherosclerosis of [place] coronary artery- Primary documented in this encounter Care Teams Preventive Maintenance Engineer Relationship Specialty Start Date End Date Von Corbin MD NO ADDRESS ON FILE PCP - General 06/24/01 10/30/16 documented as of this encounter
--- OUTSIDE RECORDS SUMMARY | 2025-07-20 20:35 | XMS_ITS | Encounter Summary ---
Author Organization [facility] Address 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
--- OUTSIDE RECORDS SUMMARY | 2025-07-20 20:36 | XMS_ITS | Encounter Summary ---
Author Organization [facility] Address 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
--- OUTSIDE RECORDS SUMMARY | 2025-07-20 20:36 | XMS_ITS | Encounter Summary ---
Author Organization [facility] Address 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
[2025-07-20 22:00] VITALS: BP 159/72; PULSE 89; O2SAT 99
[2025-07-20 22:43] VITALS: BP 146/66; TEMP 37.1; O2SAT 100
--- NOTE | 2025-07-20 22:50 | ED_ITS ---
HPI - General Adult General Chief complaint: Skin/Abscess/Foreign Body Stated complaint: left heel wound, hx DM Time Seen by Provider: 07/20/25 22:41 History of Present Illness HPI narrative: 79-year-old male presents emergency department for evaluation for worsening pain on his left heel. Patient does have history of diabetes and has all of his toes previously amputated. Patient does typically follow-up with Podiatry. Patient attempted to call his fashion journalist but did not yet get follow-up scheduled patient was concerned about the worsening left heel pain so he presented to the emergency department for evaluation. Related Data Home Medications ?Medication ?Instructions ?Recorded ?Confirmed ?Last Taken ?Type spironolactone 25 mg tablet 12.5 mg PO DAILY 02/17/22 04/02/25 Unknown History clopidogrel 75 mg tablet 75 mg PO DAILY 10/17/2303/14 Unknown History carvedilol 12.5 mg tablet 12.5 mg PO Q12H 09/16/24 Unknown History Allergies Allergy/AdvReac Type Severity Reaction Status Date / Time CRISELDA Inhibitors AdvReac Intermediate Nausea Verified 07/20/25 19:54 Review of Systems 2 Review of Systems: All systems reviewed & are unremarkable except as noted in HPI and below [facility] Past Medical History Medical History BMI 28.0-28.9,adult Ataxia BMI 30.0-30.9,adult Wound of right foot Welcome to Medicare preventive visit Type 2 diabetes mellitus without complications Screening PSA (prostate specific antigen) Screening for osteoporosis Peripheral vascular disease due to secondary diabetes Osteopenia of hip Nocturia Hyperlipidemia associated with type 2 diabetes mellitus Hyperkalemia Essential hypertension Encounter for screening colonoscopy Elevated serum creatinine Cough due to CRISELDA inhibitor Body mass index (BMI) greater than 25 (08/01/18) Atypical nevi Lethargy Dietary counseling and surveillance Colon cancer screening Impacted cerumen of both ears Diabetic retinopathy Pre-operative cardiovascular examination Osteomyelitis Cellulitis of right foot Hypokalemia Diabetic infection of right foot MSSA bacteremia (~10/2018) Secondary to left 1st toe infection. Osteomyelitis Requiring amputation of all toes on the right foot over time as well as left 1st toe amputation. Anemia Chronic kidney disease, stage 3 Baseline creatinine as 1.3 and 1.60. Insulin dependent diabetes mellitus Complicated by peripheral neuropathy and neuropathy. Peripheral arterial disease Status post right lower extremity balloon angioplasty. Coronary artery disease Status post CABG in 2004. 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 Cartagena, several requiring skin grafts. History of fusion of cervical spine Amputation toe :Transmetatarsal amputations of all toes on the right foot, some requiring further debridement with split-thickness graft per Dr. Cartagena. :Trans phalangeal amputation of the left 1st toe to the proximal phalanges. History of vascular surgery (~12/2015) Right lower extremity angioplasty. History of coronary artery bypass graft (~2004) 4 vessel bypass. Hx of coronary artery bypass graft CABG report 2005: CABG x5, Dr. Gabriel. SVG to RCA and posterolateral sequentially, GOMEZ to the Left anterior descending, radial artery to from the GOMEZ to the OM, another segment of radial artery from the GOMEZ to another OM History of amputation of toe Family History Family History Mother Family history of lung cancer Father Family history of throat cancer Sibling Heart disease Social History Social History Social History: Surrogate decision maker: Katharina Paez, spouse. Code status: Full code. Smoking status: Never smoker Second hand tobacco smoke exposure: No Alcohol intake: current Alcohol use details: rarely Substance use: never Substance use type: does not use Lack of Transportation: No Lack of Food: Never True Current Housing: I Have Housing Concerned About Future Housing: No Difficulty Paying Gas/Electric Bills: No Difficulty Paying for Meds: No Currently Unemployed: No Education: High School Diploma/GED Difficulty w/ Childcare or Family Care: No Living arrangements: with family Additional living arrangements comments: Lives with his spouse in [place]. 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 HEAD: normocephalic, atraumatic. EYES: PERRLA/EOMI, conjunctivae clear. NOSE: Normal no drainage EARS:TMS clear with good light reflex. THROAT: Pharynx clear, no exudate. NECK: Supple. No adenopathy, no masses. RESPIRATORY: Airway patent, respirations nonlabored. Clear to auscultation bilaterally, no rales, rhonchi, wheezing. CARDIOVASCULAR: Regular rate and rhythm without murmurs rubs or gallops. ABDOMINAL: Soft, nontender, nondistended, normal bowel sounds MUSCULOSKELETAL: Tenderness to left heel, no erythema of the posterior aspect of the foot no open ulcers, mild redness the posterior foot. NEURO: Alert. Cranial nerves II through XII intact. Good gait. Good coordination SKIN: Warm, dry. Normal Color Course Course Emergency Course: 71-year-old male to the emergency department for evaluation for worsening left heel pain. Patient does have history of diabetic ulcers. Patient does have some mild erythema of the heel with no gross cellulitis, no abscess. Patient was started on IV antibiotics emergency department. Patient will be discharged home with p.o. clindamycin. Patient was encouraged of close follow-up with his fashion journalist. Patient was also provided medications for pain control. Vital Signs Vital signs: Vital Signs Temperature 99 F 07/20/25 19:52 Pulse Rate 93 07/20/25 19:52 Respiratory Rate 21 H 07/20/25 19:52 Blood Pressure 120/47 L 07/20/25 19:52 Pulse Oximetry 99 07/20/25 19:52 Oxygen Delivery Room Air 07/20/25 19:52 Temperature 98 F 07/21/25 00:12 Pulse Rate 87 07/21/25 00:12 Respiratory Rate 16 07/21/25 00:12 Blood Pressure 130/74 07/21/25 00:12 Pulse Oximetry 98 07/21/25 00:12 Oxygen Delivery Room Air 07/20/25 19:52 [facility] Narrative Medical decision making narrative: 79-year-old male presents emergency department for evaluation for worsening left heel pain. Patient is currently afebrile but does have a leukocytosis of 12.0 hemoglobin of 13.7. Mildly elevated CRP of 5.8. No concern for abscess. Possible early cellulitis. Patient has not been on any antibiotics as outpatient. Patient was provided medication for pain control started on clindamycin in the ED and transition to p.o. clindamycin for home. Patient was also encouraged to have close follow-up with Podiatry. Patient was provided crutches for limited weight-bearing. Differential Diagnosis Differential Diagnosis: Cellulitis, tendinitis, foot fracture, foot contusion, diabetic ulcer Lab Data 07/20/25 23:03 07/20/25 23:03 Labs: Lab Results 07/20/25 Range/Units 23:03 WBC 12.0 H (4.5-10.0) K/mm3 RBC 4.56 L (4.6-6.20) M/mm3 Hgb 13.7 L (14.0-18.0) g/dL Hct 41.7 L (42.0-52.0) % MCV 91.4 (80-100) fl MCH 30.0 (26-34) pg MCHC 32.9 (32-36) g/dl RDW 14.1 (11.5-14.5) % Plt Count 272 (150-375) k/mm3 MPV 10.1 (7.4-10.4) fl Immature Gran % (Auto) 0.4 (0-0.5) % Neut % (Auto) 66.2 (45.5-73.1) % Lymph % (Auto) 18.1 L (18.3-44.2) % [place] % (Auto) 12.9 H (2.6-8.5) % Eos % (Auto) 1.7 (0-4.4) % Baso % (Auto) 0.7 (0.2-1.2) % Lymph # (Auto) 2.16 (0.9-3.2) K/mm3 [place] # (Auto) 1.5 H (0.1-0.6) K/mm3 Eos # (Auto) 0.2 (0-0.3) K/mm3 Baso # (Auto) 0.1 (0.0-0.1) K/mm3 Abs Immat Gran (auto) 0.05 H (0.00-0.031) K/mm3 Absolute Neuts (auto) 7.9 H (1.3-6.7) K/mm3 Absolute Nucleated RBC 0.000 (0.0-0.012) K/mm3 Nucleated RBC % 0.0 (0.0-0.2) % Sodium 134 L (137-145) mmol/L Potassium 4.5 (3.4-5.0) mmol/L Chloride 107 (98-107) mmol/L Carbon Dioxide 20 L (22-30) mmol/L Anion Gap 7 (4-12) mmol/L BUN 32 H (9-20) mg/dL Creatinine 2.19 H (0.7-1.3) mg/dL Estim Creat Clear Calc 28 ml/min Estimated GFR 29 L (59 - ) Glucose 109 (65-110) mg/dL Calcium 9.0 (8.4-10.2) mg/dL Total Bilirubin 1.2 (0.2-1.3) mg/dL AST 31 (17-59) U/L ALT 14 (6-50) U/L Alkaline Phosphatase 89 (38-126) U/L C-Reactive Protein 5.8 H (<1.0) mg/dL Total Protein 8.3 H (6.3-8.2) g/dL Albumin 4.3 (3.5-5.1) g/dL Discharge Plan Discharge Clinical Impression: Cellulitis Patient Disposition: Home Condition: Stable Instructions: Antibiotic Form, Cellulitis (ED) Additional Instructions: Antibiotic as directed until completed. [place] as needed for pain control. Have close follow-up with your fashion journalist. Patient Language: Divehi Prescriptions: New hydrocodone-acetaminophen 5-325 mg tablet 1 tablet PO Q12H PRN (Reason: pain) Qty: 14 0RF clindamycin HCl [Cleocin HCl] 300 mg capsule 300 mg PO Q6H 7 Days Qty: 28 0RF No Action insulin lispro protamin-lispro 100 unit/mL (75-25) insulin pen See Rx Instructions SUBCUT BID Qty: 60 4RF Rx Instructions: 30u before breakfast and 15u before dinner subcutaneously twice a day; subcutaneously twice a day; fluticasone propionate 50 mcg/actuation spray,suspension 2 spray intranasal DAILY 30 Days Qty: 16 2RF Rx Instructions: administer into right nostril only carvedilol 12.5 mg tablet 12.5 mg PO Q12H Rx Instructions: must administer with a meal/food Gvoke HypoPen 2-Pack 1 mg/0.2 mL auto-injector 1 mg subcut ONCE Qty: 0.4 4RF Rx Instructions: may repeat once after 15 minutes if no response spironolactone 25 mg Tablet 12.5 mg PO DAILY aspirin 81 mg Tablet,Delayed Release (Dr/Ec) 81 mg PO QAM Qty: 7 0RF clopidogrel 75 mg tablet 75 mg PO DAILY Entresto 24-26 mg tablet 1 tablet PO BID Qty: 60 2RF (DME) pen needle, diabetic [BD Ultra-Fine Micro Pen Needle] 32 gauge x 1/4 needle See Rx Instructions .Route Qty: 100 3RF Rx Instructions: As directed Trulicity 3 mg/0.5 mL pen injector 3 mg subcut WEEKLY Qty: 6 1RF lovastatin 40 mg tablet See Rx Instructions .ROUTE .COMPLEX Qty: 90 3RF Dose Instruction: TAKE 1 TABLET BY MOUTH DAILY Rx Instructions: TAKE 1 TABLET BY MOUTH DAILY cilostazol 100 mg tablet 100 mg PO BID Qty: 200 2RF pantoprazole 40 mg tablet,delayed release (DR/EC) See Rx Instructions .ROUTE .COMPLEX Qty: 90 3RF Dose Instruction: TAKE 1 TABLET BY MOUTH DAILY Rx Instructions: TAKE 1 TABLET BY MOUTH DAILY dapagliflozin propanediol [Farxiga] 10 mg tablet 10 mg PO DAILY Qty: 90 1RF Rx Instructions: [place]&ME Follow-up/Referrals: Ishan Tee APRN [Primary Care Provider, Internal Medicine]
[2025-07-20 23:00] VITALS: BP 130/63
--- OUTSIDE RECORDS SUMMARY | 2025-07-20 23:00 | XMS_ITS | Encounter Summary ---
Author Organization [facility] Address 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 LAST VISIT: 06-01-06 PCP: Shaquille. ALTERNATIVE PHONE NUMBER: [phone] WHO CALLED: Patient called. CURRENT ALLERGY LIST: NO KNOWN ALLERGIES PHARMACY NUMBER: [phone] PROBLEMS: CONGESTION: Patient complains of chest congestion. [...] status: NEW PRESCRIPTION, 08/01/2006, Comment: called to [phone]/ Markel. FINAL ACTION: w 08/01/06 at 11:34 am Spoke with patient 08/01/06 at 11:42 am. Called pharmacy at 08/01/06 at 11:34 am. / Markel Electronically Signed by: Markel Sifuentes on Tuesday, August 01, 2006 documented in this encounter Plan of Treatment Not on file documented as of this encounter Visit Diagnoses Not on filedocumented in this encounter Care Teams Filter Filler Relationship Specialty Start Date End Date Von Corbin MD NO ADDRESS ON FILE PCP - General 06/24/01 10/30/16 documented as of this encounter
--- OUTSIDE RECORDS SUMMARY | 2025-07-20 23:00 | XMS_ITS | Encounter Summary ---
Author Organization [facility] Address 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
--- OUTSIDE RECORDS SUMMARY | 2025-07-20 23:00 | XMS_ITS | Encounter Summary ---
Author Organization [facility] Address [address] [place] [address] Care Team Providers Care Enterprise Mobility Architect Name Role Phone Von Corbin MD Primary Care Provider Radha faria Encounter Details Date Type Department Care Team (Late st Contact Info) Description 09/24/2006 Outpatient Historical [facility] Primary Care - [address] [place] [address] Von Corbin MD NO ADDRESS ON FILE Social History Tobacco Use Types Packs/Day Years Used Date Smoking Tobacco: Never Assessed Sex and Gender Information Value Date Recorded Sex Assigned at Not on file Legal Sex Male 4:32 AM TEACHER [place] Gender Identity Not on file Sexual Orientation Not on file documented as of this encounter Last Filed Vital Signs Vital Sign Reading Time Taken Comments Blood Pressure 120/70 09/24/2006 11:45 AM TEACHER [place] Pulse - - Temperature 36.6 C (97.9 F) 09/24/2006 11:45 AM TEACHER [place] Respiratory Rate - - Oxygen Saturation - - Inhaled Oxygen Concentration - - Weight 95.7 kg (211 lb) 09/24/2006 11:45 AM TEACHER [place] Height - - Body Mass Index - - documented in this encounter Plan of Treatment Not on file documented as of this encounter Visit Diagnoses Not on filedocumented in this encounter Care Teams Enterprise Mobility Architect Relationship Specialty Start Date End Date Von Corbin MD NO ADDRESS ON FILE PCP - General 06/24/01 10/30/16 documented as of this encounter
--- OUTSIDE RECORDS SUMMARY | 2025-07-20 23:00 | XMS_ITS | Encounter Summary ---
Author Organization [facility] Address 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
--- OUTSIDE RECORDS SUMMARY | 2025-07-20 23:00 | XMS_ITS | Encounter Summary ---
Author Organization [facility] Address [address] [place] [address] Care Team Providers Care Public Relations Analyst Name Role Phone Von Corbin MD Primary Care Provider Radha faria Encounter Details Date Type Department Care Team (Late st Contact Info) Description 07/23/[address] 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 LAST VISIT: 04-24-07 PCP: Shaquille WHO CALLED: Patient called. SECTION 1: REQUESTED ACTION arvind 07/23/07 at 02:39 pm: MEDICATION REQUEST: MEDICATION REQUEST: Patient requests a refill. MEDICATIONS: ONE TOUCH ULTRA TEST IN VITRO STRIP, test bid as directed, 100 Dispensed, 5 Fills, status: CONTINUED, 07/23/2007. in [facility] for signature wants mailed to home...............markel DOCTOR`S RESPONSE: lorna 07/23/07 at 04:28 pm in [facility] FINAL ACTION: bennie 07/23/07 at 04:32 pm Spoke with patient 07/23/07 at 04:32 pm. ADDITIONAL COMMENTS: mailed rx ad Electronically Signed by: Araceli Joyce on Monday, July 23, 2007 documented in this encounter Plan of Treatment Not on file documented as of this encounter Visit Diagnoses Not on filedocumented in this encounter Care Teams Public Relations Analyst Relationship Specialty Start Date End Date Von Corbin MD NO ADDRESS ON FILE PCP - General 06/24/01 10/30/16 documented as of this encounter
--- OUTSIDE RECORDS SUMMARY | 2025-07-20 23:00 | XMS_ITS | Encounter Summary ---
Author Organization [facility] Address 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
--- OUTSIDE RECORDS SUMMARY | 2025-07-20 23:00 | XMS_ITS | Encounter Summary ---
Author Organization [facility] Address 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
--- OUTSIDE RECORDS SUMMARY | 2025-07-20 23:00 | XMS_ITS | Encounter Summary ---
Author Organization [facility] Address [address] [place] [address] Care Team Providers Care Book Reviewer Name Role Phone Von Corbin MD Primary Care Provider Radha faria Encounter Details Date Type Department Care Team (Late st Contact Info) Description 04/19/[address] 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 LAST VISIT: PCP: paris WHO CALLED: Patient called. ALTERNATIVE PHONE NUMBER: [phone] CURRENT ALLERGY LIST: NO KNOWN ALLERGIES SECTION [...] on filedocumented in this encounter Care Teams Book Reviewer Relationship Specialty Start Date End Date Von Corbin MD NO ADDRESS ON FILE PCP - General 06/24/01 10/30/16 documented as of this encounter
--- OUTSIDE RECORDS SUMMARY | 2025-07-20 23:00 | XMS_ITS | Encounter Summary ---
Author Organization [facility] Address 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 Gender Identity Not on file Sexual Orientation Not on file documented as of this encounter Last Filed Vital Signs Vital Sign Reading Time Taken Comments Blood Pressure 118/76 04/09/2006 12:00 PM CDT Pulse - - Temperature 35.9 C (96.7 F) 04/09/2006 12:00 PM CDT Respiratory Rate - - Oxygen Saturation - - Inhaled Oxygen Concentration - - Weight 97.1 kg (214 lb) 04/09/2006 12:00 PM CDT Height - - Body Mass Index - - documented in this encounter Plan of Treatment Not on file documented as of this encounter Visit Diagnoses Not on filedocumented in this encounter Care Teams Portfolio Assistant Relationship Specialty Start Date End Date Von Corbin MD NO ADDRESS ON FILE PCP - General 06/24/01 10/30/16 documented as of this encounter
--- OUTSIDE RECORDS SUMMARY | 2025-07-20 23:00 | XMS_ITS | Encounter Summary ---
Author Organization [facility] Address 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
--- OUTSIDE RECORDS SUMMARY | 2025-07-20 23:00 | XMS_ITS | Encounter Summary ---
Author Organization [facility] Address [address] [place] [address] Care Team Providers Care Electronic Industrial Controls Mechanic Name Role Phone Von Corbin MD Primary Care Provider Radha faria Encounter Details Date Type Department Care Team (Latest Contact Info) Description 05/10/[address] 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 Gender Identity Not on file Sexual Orientation [...] URINE ORDERABLES Final Result Performing Organization Address [facility] Phone Number INTERFACE SYSTEM Refer to clinic/hospital department * (ABNORMAL) HEMOGLOBIN A1C (05/10/2006 7:14 PM CDT) Pathologist [facility] HEMOGLOBIN A1C 8.2(H) 3.9 - 6.1 % of Hgb INTERFACE SYSTEM GLUCOSE, MEAN BLOOD 187 mg/dL INTERFACE SYSTEM 05/10/2006 7:14 PM CDT us Von Corbin MD CHEMISTRY ORDERABLES Final Re sult Performing Organization Address [place] Phone Number INTERFACE SYSTEM Refer to clinic/hospital department * (ABNORMAL) LIPID PANEL (05/10/2006 7:14 PM CDT) Pathologist [facility] CHOLESTEROL 197 100 - 199 mg/dL INTERFACE SYSTEM TRIGLYCERIDE 321(H) 10 - 149 mg/dL INTERFACE SYSTEM HDL 41 40 - 59 mg/dL INTERFACE SYSTEM CHOL/HDL RATIO 4.8 2.0 - 5.0 INTER FACE SYSTEM LDL CALCULATED 92 <=99 mg/dL INTERFACE SYSTEM LIPID PANEL COMMENT See Below INTERFACE SYSTEM Comment: The adult ATP and pediatric NCEP classifications for lipids are available on the [facility] Intranet at: [email or web address] Select: Lab Policies and Procedures Select: Reference Ranges - Lipids 05/10/2006 7:14 PM CDT us Von Corbin MD CHEMISTRY ORDERABLES Final Re sult Performing Organization Address [facility] Co de Phone Number INTERFACE SYSTEM Refer to clinic/hospital department * PSA (05/10/2006 7:14 PM CDT) Pathologist [facility] PSA 0.5 0.0 - 4.0 ng/mL INTERFACE SYSTEM Comment:Performed on [employer] E170 System 05/10/2006 7:14 PM CDT us Von Corbin MD CHEMISTRY ORDERABLES Final Re sult INTERFACE SYSTEM Refer to clinic/hospital department documented in this encounter Visit Diagnoses Diagnosis Special screening for malignant neoplasm of prostate- Primary documented in this encounter Care Teams Electronic Industrial Controls Mechanic Relationship Specialty Start Date End Date Von Corbin MD NO ADDRESS ON FILE PCP - General 06/24/01 10/30/16 documented as of this encounter
--- OUTSIDE RECORDS SUMMARY | 2025-07-20 23:00 | XMS_ITS | Clinical Summary ---
Author Organization [facility] Address [facility] [place] [address] Care Team Providers Care Station Mechanic Apprentice Name Role Phone Vick Segura PA-C Primary Care Provider [phone] Jose Cartagena MD Unavailable [phone] Medications ondansetron (ZOFRAN) 4 MG tabletIndication s:Nausea in adult Take 1 tablet (4 mg total) by mouth every 8 (eight) hours as needed for Nausea. 20 tablet 02/11/2024 Active ondansetron (ZOFRAN) 4 MG tablet Take 1 tablet (4 mg total) by mouth every 8 (eight) hours as needed for Nausea. 20 tablet 02/29/2024 Active Social History Tobacco Use Types Packs/Day Years Used Date Smoking Tobacco: Never Assessed Sex and Gender Information Value Date Recorded Sex Assigned at Not on file Legal Sex Male 8:56 AM CDT Gender Identity Not on file Sexual Orientation Not on file Plan of Treatment Health Maintenance Due Date Last Done Comments Hepatitis C 1963 DTaP, Tdap and Td Vaccines (1 - Tdap) 1965 Zoster Vaccines (1 of 2) 1996 Annual Medicare Wellness Visit 2011 RSV Immunization or 60+ Years (1 - 1-dose 75+ series) 2021 COVID-19 Vaccine (2 - season) 2025 06/10/2021 Influenza Adult (#1) 2025 06/07/2019, 07/14/2016, 05/13/2016 Pneumococcal Vaccine: 50+ Years Completed 06/23/2018, 07/22/2015, 08/13/2013, Additional history exists Hepatitis A Vaccines Aged Out No long er eligible based on patient's age to complete this topic Meningococcal B Vaccine Aged Out No l onger eligible based on patient's age to complete this topic Meningococcal Vaccine Aged Out No los niecy eligible based on patient's age to complete this topic RSV Immunizations Under 20 Months Aged Out No longer eligible based on patient's age to complete this topic Additional Health Concerns Infection Onset Date Last Indicated MRSA 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
--- OUTSIDE RECORDS SUMMARY | 2025-07-20 23:00 | XMS_ITS | Encounter Summary ---
Author Organization [facility] Address 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 LAST VISIT: PCP: paris. ALTERNATIVE PHONE NUMBER: [phone] WHO CALLED: Patient called. 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
--- OUTSIDE RECORDS SUMMARY | 2025-07-20 23:00 | XMS_ITS | Encounter Summary ---
Author Organization [facility] Address 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 LAST VISIT: 09-24-06 PCP: paris. ALTERNATIVE PHONE NUMBER: [phone] WHO CALLED: Patient called. CURRENT ALLERGY LIST: [...] on filedocumented in this encounter Care Teams President And Ceo Relationship Specialty Start Date End Date Von Corbin MD NO ADDRESS ON FILE PCP - General 06/24/01 10/30/16 documented as of this encounter
--- OUTSIDE RECORDS SUMMARY | 2025-07-20 23:00 | XMS_ITS | Clinical Summary ---
Author Organization [facility] Address [address] [place] [address] Care Team Providers Care Aircraft Mechanic Armament Name Role Phone Unavailable Primary Care Provider [...]
--- OUTSIDE RECORDS SUMMARY | 2025-07-20 23:00 | XMS_ITS | Encounter Summary ---
Author Organization [facility] Address 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 LAST VISIT: 05-10-06 PCP: paris. ALTERNATIVE PHONE NUMBER: [phone] WHO CALLED: Patient called. CURRENT ALLERGY LIST: [...] on filedocumented in this encounter Care Teams Science Analyst Relationship Specialty Start Date End Date Von Corbin MD NO ADDRESS ON FILE PCP - General 06/24/01 10/30/16 documented as of this encounter
--- OUTSIDE RECORDS SUMMARY | 2025-07-20 23:00 | XMS_ITS | Encounter Summary ---
Author Organization [facility] Address 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
--- OUTSIDE RECORDS SUMMARY | 2025-07-20 23:00 | XMS_ITS | Encounter Summary ---
Author Organization [facility] Address 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 WHO TOOK THE CALL: Markel Sifuentes W GENERAL INFORMATION PATIENT STATUS: Established Patient. LAST VISIT: 09-24-06 PCP: Shaquille. ALTERNATIVE PHONE NUMBER: [phone] WHO CALLED: Patient called. PROBLEMS: big red [...] on filedocumented in this encounter Care Teams Media Marketing Director Relationship Specialty Start Date End Date Von Corbin MD NO ADDRESS ON FILE PCP - General 06/24/01 10/30/16 documented as of this encounter
--- OUTSIDE RECORDS SUMMARY | 2025-07-20 23:00 | XMS_ITS | Encounter Summary ---
Author Organization [employer] Address 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
[2025-07-20 23:01] VITALS: BP 130/63; PULSE 78; RESP 16; TEMP 37.1; O2SAT 97
--- OUTSIDE RECORDS SUMMARY | 2025-07-20 23:01 | XMS_ITS | Encounter Summary ---
Author Organization [facility] [place] Address [address] [place] [address] Care Team Providers Care Mail Processing Equipment Mechanic Name Role Phone Von Corbin MD Primary Care Provider Radha faria Encounter Details Date Type Department Care Team (Late st Contact Info) Description 04/30/2003 Outpatient Historical [facility] Primary Care - [address] [place] [phone] Von Corbin MD NO ADDRESS ON FILE Social History Tobacco Use Types Packs/Day Years Used Date Smoking Tobacco: Never Assessed Sex and Gender Information Value Date Recorded Sex Assigned at Not on file Legal Sex Male 4:32 AM PATIENT ACCESS ASSOCIATE Gender Identity Not on file Sexual Orientation Not on file documented as of this encounter Plan of Treatment Not on file documented as of this encounter Visit Diagnoses Not on filedocumented in this encounter Care Teams Mail Processing Equipment Mechanic Relationship Specialty Start Date End Date Von Corbin MD NO ADDRESS ON FILE PCP - General 06/24/01 10/30/16 documented as of this encounter
--- OUTSIDE RECORDS SUMMARY | 2025-07-20 23:01 | XMS_ITS | Encounter Summary ---
Author Organization [facility] Address [address] [place] [address] Care Team Providers Care Office Admin Name Role Phone Von Corbin MD Primary Care Provider Radha faria Encounter Details Date Type Department Care Team (Late st Contact Info) Description 04/19/2005 Outpatient Historical [facility] Cardiovas and Thor Surg at [facility] [address] [address] Isael Gabriel Jr., MD NO ADDRESS ON FILE Social History Tobacco Use Types Packs/Day Years Used Date Smoking Tobacco: Never Assessed Sex and Gender Information Value Date Recorded Sex Assigned at Not on file Legal 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
--- OUTSIDE RECORDS SUMMARY | 2025-07-20 23:01 | XMS_ITS | Encounter Summary ---
Author Organization [facility] Address [address] [place] [address] Care Team Providers Care Psychometric Examiner Name Role Phone Von Corbin MD Primary Care Provider Radha faria Encounter Details Date Type Department Care Team (Late st Contact Info) Description 12/31/2002 Outpatient Historical [facility] Primary Care - [address] [place] [phone] Von Corbin MD NO ADDRESS ON FILE Social History Tobacco Use Types Packs/Day Years Used Date Smoking Tobacco: Never Assessed Sex and Gender Information Value Date Recorded Sex Assigned at Not on file Legal Sex Male 4:32 AM EXPLOSIVE SPECIALIST Gender Identity Not on file Sexual Orientation Not on file documented as of this encounter Plan of Treatment Not on file documented as of this encounter Visit Diagnoses Not on filedocumented in this encounter Care Teams Psychometric Examiner Relationship Specialty Start Date End Date Von Corbin MD NO ADDRESS ON FILE PCP - General 06/24/01 10/30/16 documented as of this encounter
--- OUTSIDE RECORDS SUMMARY | 2025-07-20 23:01 | XMS_ITS | Encounter Summary ---
Author Organization [facility] Address [address] [place] [address] Care Team Providers Care Director Of Sleep Name Role Phone Von Corbin MD Primary Care Provider Radha faria Encounter Details Date Type Department Care Team (Late st Contact Info) Description 04/14/[address] 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
--- OUTSIDE RECORDS SUMMARY | 2025-07-20 23:01 | XMS_ITS | Encounter Summary ---
Author Organization [employer] Address [address] [place] [address] Care Team Providers Care Aircraft Navigator Name Role Phone Von Corbin MD Primary Care Provider Radha faria Encounter Details Date Type Department Care Team (Latest Contact Info) Description 06/24/2001 Outpatient Historical [facility] RELEASE OF INFORMATION SPECIALIST Von Corbin MD NO ADDRESS ON FILE DIABETES UNCOMPL ADULT-TYPE II (CMS/HCC) (Primary Dx) Social History Tobacco Use Types Packs/Day Years Used Date Smoking Tobacco: Never Assessed Sex and Gender Information Value Date Recorded Sex Assigned at Not on file Legal Sex Male 4:32 AM TOOLING SPECIALIST Gender Identity Not on file Sexual Orientation Not on file documented as of this encounter Plan of Treatment Not on file documented as of this encounter Visit Diagnoses Diagnosis Type II or unspecified type diabetes mellitus without mention of complication, not stated as uncontrolled- Primary documented in this encounter Care Teams Aircraft Navigator Relationship Specialty Start Date End Date Von Corbin MD NO ADDRESS ON FILE PCP - General 06/24/01 10/30/16 documented as of this encounter
--- OUTSIDE RECORDS SUMMARY | 2025-07-20 23:01 | XMS_ITS | Encounter Summary ---
Author Organization [facility] Address [address] [place] [address] Care Team Providers Care V Belt Curer Name Role Phone Von Corbin MD Primary Care Provider Radha faria Encounter Details Date Type Department Care Team (Late st Contact Info) Description 08/03/2005 Outpatient Historical [facility] Primary Care - [address] [place] [address] Von Corbin MD NO ADDRESS ON FILE Social History Tobacco Use Types Packs/Day Years Used Date Smoking Tobacco: Never Assessed Sex and Gender Information Value Date Recorded Sex Assigned at Not on file Legal Sex Male 4:32 AM MINE PROMOTOR Gender Identity Not on file Sexual Orientation Not on file documented as of this encounter Last Filed Vital Signs Vital Sign Reading Time Taken Comments Blood Pressure 126/80 08/03/2005 2:30 PM MINE PROMOTOR Pulse - - Temperature 36.3 C (97.4 F) 08/03/2005 2:30 PM MINE PROMOTOR Respiratory Rate - - Oxygen Saturation - - Inhaled Oxygen Concentration - - Weight 94.8 kg (209 lb) 08/03/2005 2:30 PM MINE PROMOTOR Height - - Body Mass Index - - documented in this encounter Plan of Treatment Not on file documented as of this encounter Visit Diagnoses Not on filedocumented in this encounter Care Teams V Belt Curer Relationship Specialty Start Date End Date Von Corbin MD NO ADDRESS ON FILE PCP - General 06/24/01 10/30/16 documented as of this encounter
--- OUTSIDE RECORDS SUMMARY | 2025-07-20 23:01 | XMS_ITS | Encounter Summary ---
Author Organization [facility] Address [address] [place] [address] Care Team Providers Care Saturator Tender Name Role Phone Von Corbin MD Primary Care Provider Radha faria Encounter Details Date Type Department Care Team (Late st Contact Info) Description 09/08/1999 Outpatient Historical [facility] Primary Care - [address] [place] [phone] Von Corbin MD NO ADDRESS ON FILE Social History Tobacco Use Types Packs/Day Years Used Date Smoking Tobacco: Never Assessed Sex and Gender Information Value Date Recorded Sex Assigned at Not on file Legal Sex Male 4:32 AM CHILD ADVOCATE Gender Identity Not on file Sexual Orientation Not on file documented as of this encounter Plan of Treatment Not on file documented as of this encounter Visit Diagnoses Not on filedocumented in this encounter Care Teams Saturator Tender Relationship Specialty Start Date End Date Von Corbin MD NO ADDRESS ON FILE PCP - General 06/24/01 10/30/16 documented as of this encounter
--- OUTSIDE RECORDS SUMMARY | 2025-07-20 23:01 | XMS_ITS | Encounter Summary ---
Author Organization [facility] Address [address] [place] [address] Care Team Providers Care Software Firmware Engineer Name Role Phone Von Corbin MD Primary Care Provider Radha faria Encounter Details Date Type Department Care Team (Late st Contact Info) Description 03/12/2000 Outpatient Historical [facility] Primary Care - [address] [place] [phone] Von Corbin MD NO ADDRESS ON FILE Social History Tobacco Use Types Packs/Day Years Used Date Smoking Tobacco: Never Assessed Sex and Gender Information Value Date Recorded Sex Assigned at Not on file Legal Sex Male 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
--- OUTSIDE RECORDS SUMMARY | 2025-07-20 23:01 | XMS_ITS | Encounter Summary ---
Author Organization [facility] Address [address] [place] [address] Care Team Providers Care Tube Builder Airplane Name Role Phone Von Corbin MD Primary Care Provider Radha faria Encounter Details Date Type Department Care Team (Late st Contact Info) Description 08/11/2003 Outpatient Historical [facility] Primary Care - [address] [place] [phone] Von Corbin MD NO ADDRESS ON FILE Social History Tobacco Use Types Packs/Day Years Used Date Smoking Tobacco: Never Assessed Sex and Gender Information Value Date Recorded Sex Assigned at Not on file Legal Sex Male 4:32 AM CHIEF CLIENT OFFICER Gender Identity Not on file Sexual Orientation Not on file documented as of this encounter Plan of Treatment Not on file documented as of this encounter Visit Diagnoses Not on filedocumented in this encounter Care Teams Tube Builder Airplane Relationship Specialty Start Date End Date Von Corbin MD NO ADDRESS ON FILE PCP - General 06/24/01 10/30/16 documented as of this encounter
--- OUTSIDE RECORDS SUMMARY | 2025-07-20 23:01 | XMS_ITS | Encounter Summary ---
Author Organization [facility] Address [address] [place] [address] Care Team Providers Care Manager Utilization Management Name Role Phone Von Corbin MD Primary Care Provider Radha faria Encounter Details Date Type Department Care Team (Late st Contact Info) Description 11/10/2002 Outpatient Historical [facility] Primary Care - [address] [place] [phone] Von oCrbin MD NO ADDRESS ON FILE Social History Tobacco Use Types Packs/Day Years Used Date Smoking Tobacco: Never Assessed Sex and Gender Information Value Date Recorded Sex Assigned at Not on file Legal Sex Male 4:32 AM BONBON DIPPER Gender Identity Not on file Sexual Orientation Not on file documented as of this encounter Plan of Treatment Not on file documented as of this encounter Visit Diagnoses Not on filedocumented in this encounter Care Teams Manager Utilization Management Relationship Specialty Start Date End Date Von Corbin MD NO ADDRESS ON FILE PCP - General 06/24/01 10/30/16 documented as of this encounter
--- OUTSIDE RECORDS SUMMARY | 2025-07-20 23:01 | XMS_ITS | Encounter Summary ---
Author Organization [employer] Address [address] [place] [address] Care Team Providers Care Workday Senior Associate Name Role Phone Von Corbin MD Primary Care Provider Radha faria Encounter Details Date Type Department Care Team (Late st Contact Info) Description 02/09/[address] [facility] [address] [place] [address] [place] [address] Social History Tobacco Use Types Packs/Day Years Used Date Smoking Tobacco: Never Assessed Sex and Gender Information Value Date Recorded Sex Assigned at Not on file Legal Sex Male 4:32 AM REALTIME CAPTIONER Gender Identity Not on file Sexual Orientation Not on file documented as of this encounter Plan of Treatment Not on file documented as of this encounter Visit Diagnoses Not on filedocumented in this encounter Care Teams Workday Senior Associate Relationship Specialty Start Date End Date Von Corbin MD NO ADDRESS ON FILE PCP - General 06/24/01 10/30/16 documented as of this encounter
--- OUTSIDE RECORDS SUMMARY | 2025-07-20 23:01 | XMS_ITS | Encounter Summary ---
Author Organization [employer] Address [address] [place] [address] Care Team Providers Care Liner Assembler Name Role Phone Von Corbin MD Primary Care Provider Radha faria Encounter Details Date Type Department Care Team (Late st Contact Info) Description 12/25/2002 Outpatient [facility] [address] [place] [address] [place] [address] Social History Tobacco Use Types Packs/Day Years Used Date Smoking Tobacco: Never Assessed Sex and Gender Information Value Date Recorded Sex Assigned at Not on file Legal Sex Male 4:32 AM PHARMACY ASSOCIATE Gender Identity Not on file Sexual Orientation Not on file documented as of this encounter Plan of Treatment Not on file documented as of this encounter Visit Diagnoses Not on filedocumented in this encounter Care Teams Liner Assembler Relationship Specialty Start Date End Date Von Corbin MD NO ADDRESS ON FILE PCP - General 06/24/01 10/30/16 documented as of this encounter
--- OUTSIDE RECORDS SUMMARY | 2025-07-20 23:01 | XMS_ITS | Encounter Summary ---
Author Organization [facility] Address [address] [place] [address] Care Team Providers Care Elevator Operator Freight Name Role Phone Von Corbin MD Primary Care Provider Radha faria Encounter Details Date Type Department Care Team (Late st Contact Info) Description 05/20/1999 Outpatient Historical [facility] Primary Care - [address] [place] [phone] Sid Pruitt MD [address] [facility] [address] [address] Social History Tobacco Use Types Packs/Day Years Used Date Smoking Tobacco: Never Assessed Sex and Gender Information Value Date Recorded Sex Assigned at Not on file Legal Sex Male 4:32 AM COMMUNICATION SIGNALS INTELLIGENCE Gender Identity Not on file Sexual Orientation Not on file documented as of this encounter Plan of Treatment Not on file documented as of this encounter Visit Diagnoses Not on filedocumented in this encounter Care Teams Elevator Operator Freight Relationship Specialty Start Date End Date Von Corbin MD NO ADDRESS ON FILE PCP - General 06/24/01 10/30/16 documented as of this encounter
--- OUTSIDE RECORDS SUMMARY | 2025-07-20 23:01 | XMS_ITS | Encounter Summary ---
Author Organization [facility] Address [address] [place] [address] Care Team Providers Care Passenger Tire Inspector Name Role Phone Von Corbin MD Primary Care Provider Radha faria Encounter Details Date Type Department Care Team (Late st Contact Info) Description 03/22/2005 Outpatient Historical [facility] Cardiovas and Thor Surg at [facility] [address] [facility] [address] [address] Sejal Ruelas MD [address] [facility] [address] [place] [address] Social History Tobacco Use Types Packs/Day Years Used Date Smoking Tobacco: Never Assessed Sex and Gender Information Value Date Recorded Sex Assigned at Not on file Legal Sex Male 4:32 AM TRAINER Gender Identity Not on file Sexual Orientation Not on file documented as of this encounter Plan of Treatment Not on file documented as of this encounter Visit Diagnoses Not on filedocumented in this encounter Care Teams Passenger Tire Inspector Relationship Specialty Start Date End Date Von Corbin MD NO ADDRESS ON FILE PCP - General 06/24/01 10/30/16 documented as of this encounter
--- OUTSIDE RECORDS SUMMARY | 2025-07-20 23:01 | XMS_ITS | Encounter Summary ---
Author Organization [facility] Address [address] [place] [address] Care Team Providers Care Utilities Service Investigator Name Role Phone Von Corbin MD Primary Care Provider Radha faria Encounter Details Date Type Department Care Team (Late st Contact Info) Description 05/25/1998 Outpatient Historical [facility] Primary Care - [address] [place] [phone] Von Corbin MD NO ADDRESS ON FILE Social History Tobacco Use Types Packs/Day Years Used Date Smoking Tobacco: Never Assessed Sex and Gender Information Value Date Recorded Sex Assigned at Not on file Legal Sex Male 4:32 AM BUS AIDE Gender Identity Not on file Sexual Orientation Not on file documented as of this encounter Plan of Treatment Not on file documented as of this encounter Visit Diagnoses Not on filedocumented in this encounter Care Teams Utilities Service Investigator Relationship Specialty Start Date End Date Von Corbin MD NO ADDRESS ON FILE PCP - General 06/24/01 10/30/16 documented as of this encounter
--- OUTSIDE RECORDS SUMMARY | 2025-07-20 23:01 | XMS_ITS | Encounter Summary ---
Author Organization [employer] Address [address] [place] [address] Care Team Providers Care Tunnel Kiln Operator Name Role Phone Von Corbin MD Primary Care Provider Radha faria Encounter Details Date Type Department Care Team (Late st Contact Info) Description 12/04/2002 Outpatient [facility] [address] [place] [address] [place] [address] Lyndon Robbins MD Social History Tobacco Use Types Packs/Day Years Used Date Smoking Tobacco: Never Assessed Sex and Gender Information Value Date Recorded Sex Assigned at Not on file Legal Sex Male 4:32 AM NETWORK SUPPORT MANAGER Gender Identity Not on file Sexual Orientation Not on file documented as of this encounter Plan of Treatment Not on file documented as of this encounter Visit Diagnoses Not on filedocumented in this encounter Care Teams Tunnel Kiln Operator Relationship Specialty Start Date End Date Von Corbin MD NO ADDRESS ON FILE PCP - General 06/24/01 10/30/16 documented as of this encounter
--- OUTSIDE RECORDS SUMMARY | 2025-07-20 23:01 | XMS_ITS | Encounter Summary ---
Author Organization [facility] Address [address] [place] [address] Care Team Providers Care Medical Case Worker Name Role Phone Von Corbin MD Primary Care Provider Radha faria Encounter Details Date Type Department Care Team (Late st Contact Info) Description 11/03/2002 Outpatient Historical [facility] Primary Care - [address] [place] [phone] Cm Luis Social History Tobacco Use Types Packs/Day Years Used Date Smoking Tobacco: Never Assessed Sex and Gender Information Value Date Recorded Sex Assigned at Not on file Legal Sex Male 4:32 AM COMMERCIAL SUBCONTRACTOR Gender Identity Not on file Sexual Orientation Not on file documented as of this encounter Plan of Treatment Not on file documented as of this encounter Visit Diagnoses Not on filedocumented in this encounter Care Teams Medical Case Worker Relationship Specialty Start Date End Date Von Corbin MD NO ADDRESS ON FILE PCP - General 06/24/01 10/30/16 documented as of this encounter
--- OUTSIDE RECORDS SUMMARY | 2025-07-20 23:01 | XMS_ITS | Encounter Summary ---
Author Organization [facility] Address 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
--- OUTSIDE RECORDS SUMMARY | 2025-07-20 23:01 | XMS_ITS | Encounter Summary ---
Author Organization [employer] Address [address] [place] [address] Care Team Providers Care Sld Teacher Name Role Phone Von Corbin MD Primary Care Provider Radha faria Encounter Details Date Type Department Care Team (Latest Contact Info) Description 03/15/2005 Outpatient Historical [facility] CARD KOSHER INSPECTOR Kailash Browning MD NO ADDRESS ON FILE CORON ATHEROSCL [place] CORON VESSEL (Primary Dx) Social History Tobacco Use Types Packs/Day Years Used Date Smoking Tobacco: Never Assessed Sex and Gender Information Value Date Recorded Sex Assigned at Not on file Legal Sex Male 4:32 AM PATIENT INTAKE REPRESENTATIVE Gender Identity Not on file Sexual [...] encounter Visit Diagnoses Diagnosis Coronary atherosclerosis of [place] coronary artery- Primary documented in this encounter Care Teams Sld Teacher Relationship Specialty Start Date End Date Von Corbin MD NO ADDRESS ON FILE PCP - General 06/24/01 10/30/16 documented as of this encounter
--- OUTSIDE RECORDS SUMMARY | 2025-07-20 23:01 | XMS_ITS | Encounter Summary ---
Author Organization [employer] Address [address] [place] [address] Care Team Providers Care Arcade Technician Name Role Phone Von Corbin MD Primary Care Provider Radha faria Encounter Details Date Type Department Care Team (Late st Contact Info) Description 03/15/2005 Outpatient Historical [facility] [address] [place] [address] Kailash Vidal MD NO ADDRESS ON FILE Social History Tobacco Use Types Packs/Day Years Used Date Smoking Tobacco: Never Assessed Sex and Gender Information Value Date Recorded Sex Assigned at Not on file Legal Sex Male 4:32 AM COMPOUNDING SCALER Gender Identity Not on file Sexual Orientation Not on file documented as of this encounter Plan of Treatment Not on file documented as of this encounter Visit Diagnoses Not on filedocumented in this encounter Care Teams Arcade Technician Relationship Specialty Start Date End Date Von Corbin MD NO ADDRESS ON FILE PCP - General 06/24/01 10/30/16 documented as of this encounter
--- OUTSIDE RECORDS SUMMARY | 2025-07-20 23:01 | XMS_ITS | Encounter Summary ---
Author Organization [facility] Address [address] [place] [address] Care Team Providers Care Form Setter Steel Forms Name Role Phone Von Corbin MD Primary Care Provider Radha faria Encounter Details Date Type Department Care Team (Late st Contact Info) Description 06/11/[address] [facility] Primary Care - [address] [place] [phone] Von Corbin MD NO ADDRESS ON FILE Social History Tobacco Use Types Packs/Day Years Used Date Smoking Tobacco: Never Assessed Sex and Gender Information Value Date Recorded Sex Assigned at Not on file Legal Sex Male 4:32 AM FREIGHT UNLOADER Gender Identity Not on file Sexual Orientation Not on file documented as of this encounter Plan of Treatment Not on file documented as of this encounter Visit Diagnoses Not on filedocumented in this encounter Care Teams Form Setter Steel Forms Relationship Specialty Start Date End Date Von Corbin MD NO ADDRESS ON FILE PCP - General 06/24/01 10/30/16 documented as of this encounter
--- OUTSIDE RECORDS SUMMARY | 2025-07-20 23:01 | XMS_ITS | Encounter Summary ---
Author Organization [facility] Address [address] [place] [address] Care Team Providers Care Bag Liner Name Role Phone Von Corbin MD Primary Care Provider Radha faria Encounter Details Date Type Department Care Team (Late st Contact Info) Description 03/22/2005 Outpatient Historical [facility] [address] [address] Isael Gabriel Jr., MD NO ADDRESS ON FILE Social History Tobacco Use Types Packs/Day Years Used Date Smoking Tobacco: Never Assessed Sex and Gender Information Value Date Recorded Sex Assigned at Not on file Legal Sex Male 4:32 AM PLASTICS SCIENTIST Gender Identity Not on file Sexual Orientation Not on file documented as of this encounter Plan of Treatment Not on file documented as of this encounter Visit Diagnoses Not on filedocumented in this encounter Care Teams Bag Liner Relationship Specialty Start Date End Date Von Corbin MD NO ADDRESS ON FILE PCP - General 06/24/01 10/30/16 documented as of this encounter
--- OUTSIDE RECORDS SUMMARY | 2025-07-20 23:01 | XMS_ITS | Encounter Summary ---
Author Organization [facility] Address [address] [place] [address] Care Team Providers Care Saddle Stitch Operator Name Role Phone Von Corbin MD Primary Care Provider Radha faria Encounter Details Date Type Department Care Team (Late st Contact Info) Description 01/18/2004 Outpatient Historical [facility] Primary Care - [address] [place] [phone] Von Corbin MD NO ADDRESS ON FILE Social History Tobacco Use Types Packs/Day Years Used Date Smoking Tobacco: Never Assessed Sex and Gender Information Value Date Recorded Sex Assigned at Not on file Legal Sex Male 4:32 AM SUPPLY ASSISTANT Gender Identity Not on file Sexual Orientation Not on file documented as of this encounter Plan of Treatment Not on file documented as of this encounter Visit Diagnoses Not on filedocumented in this encounter Care Teams Saddle Stitch Operator Relationship Specialty Start Date End Date Von Corbin MD NO ADDRESS ON FILE PCP - General 06/24/01 10/30/16 documented as of this encounter
--- OUTSIDE RECORDS SUMMARY | 2025-07-20 23:01 | XMS_ITS | Encounter Summary ---
Author Organization [facility] Address [address] [place] [address] Care Team Providers Care Compliance Professional Name Role Phone Von Corbin MD Primary Care Provider Radha faria Encounter Details Date Type Department Care Team (Late st Contact Info) Description 07/17/2000 Outpatient Historical [facility] Primary Care - [address] [place] [phone] Von Corbin MD NO ADDRESS ON FILE Social History Tobacco Use Types Packs/Day Years Used Date Smoking Tobacco: Never Assessed Sex and Gender Information Value Date Recorded Sex Assigned at Not on file Legal Sex Male 4:32 AM BIOPHYSICS SCIENTIST Gender Identity Not on file Sexual Orientation Not on file documented as of this encounter Plan of Treatment Not on file documented as of this encounter Visit Diagnoses Not on filedocumented in this encounter Care Teams Compliance Professional Relationship Specialty Start Date End Date Von Corbin MD NO ADDRESS ON FILE PCP - General 06/24/01 10/30/16 documented as of this encounter
--- OUTSIDE RECORDS SUMMARY | 2025-07-20 23:01 | XMS_ITS | Encounter Summary ---
Author Organization [facility] Address [address] [place] [address] Care Team Providers Care City Council Member Name Role Phone Von Corbin MD Primary Care Provider Radha faria Encounter Details Date Type Department Care Team (Late st Contact Info) Description 08/18/1998 Outpatient Historical [facility] Primary Care - [address] [place] [phone] Sid Pruitt MD [address] [facility] [address] [address] Social History Tobacco Use Types Packs/Day Years Used Date Smoking Tobacco: Never Assessed Sex and Gender Information Value Date Recorded Sex Assigned at Not on file Legal Sex Male 4:32 AM TOOL FILER HAND Gender Identity Not on file Sexual Orientation Not on file documented as of this encounter Plan of Treatment Not on file documented as of this encounter Visit Diagnoses Not on filedocumented in this encounter Care Teams City Council Member Relationship Specialty Start Date End Date Von Corbin MD NO ADDRESS ON FILE PCP - General 06/24/01 10/30/16 documented as of this encounter
--- OUTSIDE RECORDS SUMMARY | 2025-07-20 23:01 | XMS_ITS | Encounter Summary ---
Author Organization [facility] Address 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
--- OUTSIDE RECORDS SUMMARY | 2025-07-20 23:01 | XMS_ITS | Encounter Summary ---
Author Organization [facility] Address 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
--- OUTSIDE RECORDS SUMMARY | 2025-07-20 23:01 | XMS_ITS | Encounter Summary ---
Author Organization [facility] Address 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
--- OUTSIDE RECORDS SUMMARY | 2025-07-20 23:01 | XMS_ITS | Clinical Summary ---
Author Organization [facility] Address [address] [place] [address] Care Team Providers Care Seed Sales Manager Name Role Phone Unavailable Primary Care Provider Unavailabl e Allergies Active Allergy Reactions Criticality Noted Date Comments No Known Allergies 01/31/2005 Medications aspirin (CINDY) 81 mg Oral Tab Take 1 Tab [...] DAILY. 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 Gender Identity Not on file Sexual [...] Creatinine, Urine 101 20 - 370 mg/dL [facility] Comment: Test Performed at: [place] [address] VALENTIN HINSON DO,MPH MICROALBUMIN, URINE 1.3 mg/dL [facility] Comment: Reference Range Not established Test Performed at: [facility] [address] [address] [facility] [place] [address] VALENTIN HINSON DO,MPH MICROALBUMIN/CREAT RATIO, UR 13 <30 mcg/mg creat [facility] Comment: The ADA defines abnormalities in albumin [...] 02/25/2016 7:19 AM CDT us Delilah Tineo SHOCK ABSORPTION FLOOR LAYER URINE ORDERABLES Final Result [facility] [address] [place] [address] * (ABNORMAL) HEMOGLOBIN A1C (02/25/2016 7:16 AM CDT) HEMOGLOBIN A1C 8.3(H) <5.7 % of total Hgb [facility] Comment: According to ADA guidelines, hemoglobin A1c [...] children. REPORT COMMENT: FASTING:YES Test Performed at: [facility] [employer] [address] VALENTIN HINSON DO,MPH 02/25/2016 7:16 AM CDT us Historical Provider CHEMISTRY ORDERABLES Final R esult [facility] [address] [place] [address] * (ABNORMAL) LIPID PANEL (02/25/2016 7:16 AM CDT) CHOLESTEROL 131 125 - 200 mg/dL [facility] Comment: Test Performed at: [employer] [address] VALENTIN HINSON DO,MPH HDL 25(L) > OR = 40 mg/dL [facility] TRIGLYCERIDE 148 <150 mg/dL [facility] LDL CALCULATED 76 <130 mg/dL (calc) [facility] Comment: Desirable range <100 mg/dL for patients with CHD or diabetes and <70 mg/dL for diabetic patients with known heart disease. CHOL/HDL RATIO 5.2(H) < OR = 5.0 (calc) [facility] TOTAL NON-HDL CHOL(LDL+VLDL) 106 mg/dL (calc) [facility] Comment: Target for non-HDL cholesterol is 30 mg/dL higher than LDL cholesterol target. 02/25/2016 7:16 AM CDT us Historical Provider CHEMISTRY ORDERABLES Final R esult [facility] [address] [place] [address] from Last 3 Months or Most Recently Relevant to Health Maintenance Insurance [facility] BLUE ACCESS/TRUE BLUE PPO Advance Directives For more information, please contact: [phone] * Full Code (Latest Code Status on File) Date Activated Date Inactivated Comments 12/30/2009 12:34 PM 12/31/2009 2:32 AM
--- OUTSIDE RECORDS SUMMARY | 2025-07-20 23:01 | XMS_ITS | Encounter Summary ---
Author Organization [facility] Address 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
--- OUTSIDE RECORDS SUMMARY | 2025-07-20 23:01 | XMS_ITS | Encounter Summary ---
Author Organization [facility] Address 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
--- OUTSIDE RECORDS SUMMARY | 2025-07-20 23:01 | XMS_ITS | Encounter Summary ---
Author Organization [employer] Address 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
--- OUTSIDE RECORDS SUMMARY | 2025-07-20 23:01 | XMS_ITS | Encounter Summary ---
Author Organization [facility] Address 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
--- OUTSIDE RECORDS SUMMARY | 2025-07-20 23:01 | XMS_ITS | Encounter Summary ---
Author Organization [facility] Address 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 LAST VISIT: 11-13-05 PCP: carli. ALTERNATIVE PHONE NUMBER: [phone] WHO CALLED: CURRENT ALLERGY LIST: NO KNOWN ALLERGIES PHARMACY NUMBER: [phone] PROBLEMS: CONGESTION: Patient complains of sinus congestion. [...] on filedocumented in this encounter Care Teams Radiologic Technologist Chief Relationship Specialty Start Date End Date Von Corbin MD NO ADDRESS ON FILE PCP - General 06/24/01 10/30/16 documented as of this encounter
--- OUTSIDE RECORDS SUMMARY | 2025-07-20 23:01 | XMS_ITS | Encounter Summary ---
Author Organization [facility] Address 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
--- OUTSIDE RECORDS SUMMARY | 2025-07-20 23:01 | XMS_ITS | Encounter Summary ---
Author Organization [facility] Address [address] [place] [address] Care Team Providers Care Letterset Press Set Up Operator Name Role Phone Von Corbin MD Primary Care Provider Radha faria Encounter Details Date Type Department Care Team (Late st Contact Info) Description 07/02/2000 Outpatient Historical [facility] Primary Care - [address] [place] [phone] Von Corbin MD NO ADDRESS ON FILE Social History Tobacco Use Types Packs/Day Years Used Date Smoking Tobacco: Never Assessed Sex and Gender Information Value Date Recorded Sex Assigned at Not on file Legal 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
--- OUTSIDE RECORDS SUMMARY | 2025-07-20 23:01 | XMS_ITS | Encounter Summary ---
Author Organization [facility] Address [address] [place] [address] Care Team Providers Care Product Inspection Supervisor Name Role Phone Von Corbin MD Primary Care Provider Radha faria Encounter Details Date Type Department Care Team (Late st Contact Info) Description 01/22/[address] [facility] Primary Care - [address] [place] [phone] Von Corbin MD NO ADDRESS ON FILE Social History Tobacco Use Types Packs/Day Years Used Date Smoking Tobacco: Never Assessed Sex and Gender Information Value Date Recorded Sex Assigned at Not on file Legal Sex Male 4:32 AM COUNTER STITCHER Gender Identity Not on file Sexual Orientation Not on file documented as of this encounter Plan of Treatment Not on file documented as of this encounter Visit Diagnoses Not on filedocumented in this encounter Care Teams Product Inspection Supervisor Relationship Specialty Start Date End Date Von Corbin MD NO ADDRESS ON FILE PCP - General 06/24/01 10/30/16 documented as of this encounter
--- OUTSIDE RECORDS SUMMARY | 2025-07-20 23:01 | XMS_ITS | Encounter Summary ---
Author Organization [facility] Address [address] [place] [address] Care Team Providers Care Case Assistant Name Role Phone Von Corbin MD Primary Care Provider Radha faria Encounter Details Date Type Department Care Team (Late st Contact Info) Description 04/02/2000 Outpatient Historical [facility] Primary Care - [address] [place] [phone] Von Corbin MD NO ADDRESS ON FILE Social History Tobacco Use Types Packs/Day Years Used Date Smoking Tobacco: Never Assessed Sex and Gender Information Value Date Recorded Sex Assigned at Not on file Legal Sex Male 4:32 AM RADIO TIME BUYER Gender Identity Not on file Sexual Orientation Not on file documented as of this encounter Plan of Treatment Not on file documented as of this encounter Visit Diagnoses Not on filedocumented in this encounter Care Teams Case Assistant Relationship Specialty Start Date End Date Von Corbin MD NO ADDRESS ON FILE PCP - General 06/24/01 10/30/16 documented as of this encounter
--- OUTSIDE RECORDS SUMMARY | 2025-07-20 23:01 | XMS_ITS | Encounter Summary ---
Author Organization [facility] Address [address] [place] [address] Care Team Providers Care Scratch Finisher Name Role Phone Von Corbin MD Primary Care Provider Radha faria Encounter Details Date Type Department Care Team (Late st Contact Info) Description 05/10/2001 Outpatient Historical [facility] Primary Care - [address] [place] [phone] Von Corbin MD NO ADDRESS ON FILE Social History Tobacco Use Types Packs/Day Years Used Date Smoking Tobacco: Never Assessed Sex and Gender Information Value Date Recorded Sex Assigned at Not on file Legal Sex Male 4:32 AM HEDIS NURSE Gender Identity Not on file Sexual Orientation Not on file documented as of this encounter Plan of Treatment Not on file documented as of this encounter Visit Diagnoses Not on filedocumented in this encounter Care Teams Scratch Finisher Relationship Specialty Start Date End Date Von Corbin MD NO ADDRESS ON FILE PCP - General 06/24/01 10/30/16 documented as of this encounter
--- OUTSIDE RECORDS SUMMARY | 2025-07-20 23:01 | XMS_ITS | Encounter Summary ---
Author Organization [facility] Address 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
--- OUTSIDE RECORDS SUMMARY | 2025-07-20 23:01 | XMS_ITS | Encounter Summary ---
Author Organization [facility] Address 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
--- OUTSIDE RECORDS SUMMARY | 2025-07-20 23:01 | XMS_ITS | Encounter Summary ---
Author Organization [facility] Address [address] [place] [address] Care Team Providers Care Middle [employer] Spanish Teacher Name Role Phone Von Corbin MD Primary Care Provider Radha faria Encounter Details Date Type Department Care Team (Late st Contact Info) Description 12/10/2002 Outpatient Historical [facility] Primary Care - [address] [place] [phone] Von Corbin MD NO ADDRESS ON FILE Social History Tobacco Use Types Packs/Day Years Used Date Smoking Tobacco: Never Assessed Sex and Gender Information Value Date Recorded Sex Assigned at Not on file Legal Sex Male 4:32 AM CONCESSION MANAGER Gender Identity Not on file Sexual Orientation Not on file documented as of this encounter Plan of Treatment Not on file documented as of this encounter Visit Diagnoses Not on filedocumented in this encounter Care Teams Middle [employer] Spanish Teacher Relationship Specialty Start Date End Date Von Corbin MD NO ADDRESS ON FILE PCP - General 06/24/01 10/30/16 documented as of this encounter
--- OUTSIDE RECORDS SUMMARY | 2025-07-20 23:01 | XMS_ITS | Encounter Summary ---
Author Organization [facility] Address 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
--- OUTSIDE RECORDS SUMMARY | 2025-07-20 23:01 | XMS_ITS | Clinical Summary ---
Author Organization [facility] Address [address] [place] [id number] Phone Care Team Providers Care Pallet Assembler Name Role Phone Vick Segura Primary Care Provider [phone] Allergies Active Allergy Reactions Criticality Noted Date Comments Ba Inhibitors Cough 01/18/2022 Medications clopidogrel (PLAVIX) 75 MG tablet 01/15/2022 Active lovastatin (MEVACOR) 40 MG tablet 10/30/2021 Active pantoprazole (PROTONIX) 40 MG EC tablet 01/11/2022 Active Entresto 24-26 MG per tablet Take 1 tablet by mouth every 12 (twelve) hours 01/10/2022 Active insulin lispro (HumaLOG) 100 UNIT/ML injection Inject under the skin 2 (two) times a day Active carvedilol (COREG) 12.5 MG tablet 04/25/2022 Active spironolactone (ALDACTONE) 25 MG tablet TAKE 1/2 (ONE-HALF) TABLET BY MOUTH ONCE DAILY 05/09/2022 Active Dulaglutide (Trulicity) 0.75 MG/0.5ML solution pen-injector 1.5 per day Activ e Dapagliflozin Propanediol 10 MG tablet 10 mg 03/21/2022 Active aspirin (ST ROEL) 81 MG EC tablet daily 10/17/2016 Active Active Problems Problem Noted Date Diagnosed Date Essential hypertension 01/18/2022 Left heart failure 01/18/2022 Chronic kidney disease stage 3A 01/18/2022 Hyposmolality and/or hyponatremia 01/18/2022 Immunizations Immunization Administration Dates Next Due H1N1 Inj 05/13/2016 Pneumococcal Conjugate 13-Valent 07/22/2015 Pneumococcal Polysaccharide 08/13/2013, 1 Rho (D) Immune Globulin 04/13/2012 Family History Medical History Relation Comments Kidney disease Neg Hx Social History Tobacco Use Types Packs/Day Years Used Date Smoking Tobacco: Never Smokeless Tobacco: Never Alcohol Use Standard Drinks/Week Comments Yes 0 (1 standard drink = 0.6 oz pur e alcohol) rare Sex and Gender Information Value Date Recorded Sex Assigned at Not on file Legal Sex Male 8:52 AM MST Gender Identity Not on file Sexual Orientation Not on file Last Filed Vital Signs Vital Sign Reading Time Taken Comments Blood Pressure 122/70 05/29/2022 2:53 PM CDT Pulse 72 05/29/2022 2:53 PM CDT Temperature 35.5 C (95.9 F) 05/29/2022 2:53 PM CDT Respiratory Rate - - Oxygen Saturation - - Inhaled Oxygen Concentration - - Weight 89.4 kg (197 lb) 05/29/2022 2:53 PM CDT Height 182.9 cm (6') 05/29/2022 2:53 PM CDT Body Mass Index 26.72 05/29/2022 2:53 PM CDT Plan of Treatment Health Maintenance Due Date Last Done Comments COVID-19 Vaccine ( season) 2025 Influenza Vaccine (#1) 2025 Pneumococcal PPSV23/PCV13 65 + Years / Low and Medium Risk Completed 07/22/2015, 08/13/2013, 06/27/2011 Insurance Care Teams Pallet Assembler Relationship Specialty Start Date End Date Imelda, [place], [place] [address] [facility] [address] [facility] [address] [place] [address] PCP - General Family Medicine 01/17/22
--- OUTSIDE RECORDS SUMMARY | 2025-07-20 23:01 | XMS_ITS | Encounter Summary ---
Author Organization [facility] Address [address] [place] [address] Care Team Providers Care Chain Sales Consultant Name Role Phone Von Corbin MD Primary Care Provider Radha faria Encounter Details Date Type Department Care Team (Late st Contact Info) Description 02/12/2003 Outpatient Historical [facility] Primary Care - [address] [place] [phone] Von Corbin MD NO ADDRESS ON FILE Social History Tobacco Use Types Packs/Day Years Used Date Smoking Tobacco: Never Assessed Sex and Gender Information Value Date Recorded Sex Assigned at Not on file 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
--- OUTSIDE RECORDS SUMMARY | 2025-07-20 23:01 | XMS_ITS | Encounter Summary ---
Author Organization [facility] Address 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
--- OUTSIDE RECORDS SUMMARY | 2025-07-20 23:01 | XMS_ITS | Encounter Summary ---
Author Organization [facility] Address 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
--- OUTSIDE RECORDS SUMMARY | 2025-07-20 23:02 | XMS_ITS | Encounter Summary ---
Author Organization [facility] Address 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 Gender Identity Not on file Sexual [...] F inal Result Performing Organization Address [facility] de Phone Number INTERFACE SYSTEM Refer to clinic/hospital department * (ABNORMAL) CBC WITH DIFFERENTIAL (03/26/2005 5:00 AM CDT) Pathologist [facility] NEUTROPHILS 52 45 - 70 % [...] F inal Result Performing Organization Address [facility] Phone Number INTERFACE SYSTEM Refer [...] F inal Result Performing Organization Address [facility] Phone Number INTERFACE SYSTEM Refer [...] ORDERABLES Fi nal Result Performing Organization Address [facility] Phone Number INTERFACE SYSTEM Refer to clinic/hospital department * (ABNORMAL) POC GLUCOSE (03/25/2005 8:54 PM CDT) COMMENT, GLU POC Notified RN INTERFACE SYSTEM GLUCOSE POC 235(H) 65 - 109 mg/dL INTERFACE SYSTEM 03/25/2005 8:54 PM CDT Isael Gabriel Jr., MD POINT OF CARE TESTING F inal Result Performing Organization Address [facility] Phone Number INTERFACE SYSTEM Refer to clinic/hospital department * (ABNORMAL) POC GLUCOSE (03/25/2005 4:37 PM CDT) GLUCOSE POC 129(H) 65 - 109 mg/dL INTERFACE SYSTEM 03/25/2005 4:37 PM CDT us Isael Gabriel Jr., MD POINT OF CARE TESTING F inal Result Performing Organization Address [facility] Phone Number INTERFACE SYSTEM Refer to [...] ORDERABLES Final Resu lt Performing Organization Address [facility] Phone Number INTERFACE SYSTEM Refer to clinic/hospital department * (ABNORMAL) POC GLUCOSE (03/25/2005 11:55 AM CDT) GLUCOSE POC 150(H) 65 - 109 mg/dL INTERFACE SYSTEM 03/25/2005 11:5 5 AM CDT us Isael Gabriel Jr., MD POINT OF CARE TESTING F inal Result Performing Organization Address [facility] Phone Number INTERFACE SYSTEM Refer to clinic/hospital department * (ABNORMAL) POC GLUCOSE (03/25/2005 6:52 AM CDT) COMMENT, GLU POC Notified RN INTERFACE SYSTEM GLUCOSE POC 229(H) 65 - 109 mg/dL INTERFACE SYSTEM 03/25/2005 6:52 AM CDT Isael Gabriel Jr., MD POINT OF CARE TESTING F inal Result Performing Organization Address [facility] Phone Number INTERFACE SYSTEM Refer to clinic/hospital department * (ABNORMAL) POC GLUCOSE (03/25/2005 6:07 AM CDT) COMMENT, GLU POC Notified RN INTERFACE SYSTEM COMMENT 3, GLU POC To Be Repeated INTERFACE SYSTEM GLUCOSE POC 46(AA) 65 - 109 mg/dL INTERFACE SYSTEM 03/25/2005 6:07 AM CDT us Isael Gabriel Jr., MD POINT OF CARE TESTING F inal Result Performing Organization Address [facility] Phone Number INTERFACE SYSTEM Refer [...] Final Resul t Performing Organization Address [facility] de Phone Number INTERFACE SYSTEM Refer to clinic/hospital department * (ABNORMAL) POC GLUCOSE (03/24/2005 8:17 PM CDT) GLUCOSE POC 176(H) 65 - 109 mg/dL INTERFACE SYSTEM 03/24/2005 8:17 PM CDT Isael Gabriel Jr., MD POINT OF CARE TESTING F inal Result Performing Organization Address [facility]/ZIP Co de Phone Number INTERFACE SYSTEM Refer to clinic/hospital department * POTASSIUM LEVEL (03/24/2005 5:10 PM CDT) POTASSIUM 4.6 3.5 - 4.9 mmol/L INTERFACE SYSTEM 03/24/2005 5:10 PM CDT David Mcneill CHEMISTRY ORDERABLES Final Resul t Performing Organization Address [facility] Phone Number INTERFACE SYSTEM Refer to clinic/hospital department * POC GLUCOSE (03/24/2005 4:18 PM CDT) GLUCOSE POC 87 65 - 109 mg/dL INTERFACE SYSTEM 03/24/2005 4:18 PM CDT us Isael Gabriel Jr., MD POINT OF CARE TESTING F inal Result Performing Organization Address [facility] Phone Number INTERFACE SYSTEM Refer to clinic/hospital department * (ABNORMAL) POC GLUCOSE (03/24/2005 11:41 AM CDT) GLUCOSE POC 157(H) 65 - 109 mg/dL INTERFACE SYSTEM 03/24/2005 11:4 1 AM CDT Isael Gabriel Jr., MD POINT OF CARE TESTING F inal Result Performing Organization Address [facility] Phone Number INTERFACE SYSTEM Refer to clinic/hospital department * POC GLUCOSE (03/24/2005 5:54 AM CDT) COMMENT, GLU POC Notified RN INTERFACE SYSTEM GLUCOSE POC 85 65 - 109 mg/dL INTERFACE SYSTEM 03/24/2005 5:54 AM CDT us Isael Gabriel Jr., MD POINT OF CARE TESTING F inal Result Performing Organization Address [facility] Phone Number INTERFACE SYSTEM Refer to clinic/hospital department * (ABNORMAL) CBC WITH DIFFERENTIAL (03/24/2005 5:12 AM CDT) [facility] NEUTROPHILS 67 45 - 70 % INTERFAC [...] F inal Result Performing Organization Address [facility] de Phone Number INTERFACE SYSTEM Refer to clinic/hospital department * (ABNORMAL) CBC WITH DIFFERENTIAL (03/24/2005 5:12 AM CDT) [facility] WBC 12.0(H) 4.0 - 9.8 K/uL INTERFACE [...] F inal Result Performing Organization Address [facility] de Phone Number INTERFACE SYSTEM Refer to [...] Fi nal Result Performing Organization Address [facility] Phone Number INTERFACE SYSTEM Refer to clinic/hospital department * (ABNORMAL) POC GLUCOSE (03/23/2005 8:53 PM CDT) GLUCOSE POC 175(H) 65 - 109 mg/dL INTERFACE SYSTEM 03/23/2005 8:53 PM CDT us Isael Gabriel Jr., MD POINT OF CARE TESTING F inal Result Performing Organization Address [facility] Phone Number INTERFACE SYSTEM Refer to clinic/hospital department * (ABNORMAL) POC GLUCOSE (03/23/2005 4:38 PM CDT) GLUCOSE POC 198(H) 65 - 109 mg/dL INTERFACE SYSTEM 03/23/2005 4:38 PM CDT us Isael Gabriel Jr., MD POINT OF CARE TESTING F inal Result Performing Organization Address [facility] de Phone Number INTERFACE SYSTEM Refer to [...] ORDERABLES Fi nal Result Performing Organization Address [facility] Phone Number INTERFACE SYSTEM Refer to clinic/hospital department * MAGNESIUM LEVEL (03/23/2005 4:12 AM CDT) MAGNESIUM 2.2 1.5 - 2.5 mg/dL INTERFACE SYSTEM 03/23/2005 4:12 AM CDT Isael Gabriel Jr., MD CHEMISTRY ORDERABLES Fi nal Result Performing Organization Address [facility] Phone Number INTERFACE SYSTEM Refer to [...] F inal Result Performing Organization Address [facility] de Phone Number INTERFACE SYSTEM Refer to [...] patients with mechanical heart valves or post ID. Pediatric (12 years and under): 1.5 - [...] F inal Result Performing Organization Address [facility] Phone Number INTERFACE SYSTEM Refer [...] Fi nal Result Performing Organization Address [facility] de Phone Number INTERFACE SYSTEM Refer to [...] Fi nal Result Performing Organization Address [facility] Phone Number INTERFACE SYSTEM Refer to clinic/hospital department * MAGNESIUM LEVEL (03/22/2005 8:55 PM CDT) Pathologist [facility] MAGNESIUM 2.1 1.5 - 2.5 mg/dL INTERFACE SYSTEM 03/22/2005 8:55 PM CDT Isael Gabriel Jr., MD CHEMISTRY ORDERABLES Fi nal Result Performing Organization Address [facility] Phone [facility] INTERFACE SYSTEM Refer to clinic/hospital department * POTASSIUM LEVEL (03/22/2005 8:55 PM CDT) Pathologist [facility] POTASSIUM 4.4 3.5 - 4.9 mmol/L INTERFACE SYSTEM 03/22/2005 8:55 PM CDT Isael Gabriel Jr., MD CHEMISTRY ORDERABLES Fi nal Result Performing Organization Address [facility] Phone [facility] INTERFACE SYSTEM Refer to clinic/hospital department * [...] ORDERABLES nal Result Performing Organization Address [facility] Co de Phone Number INTERFACE SYSTEM Refer to clinic/hospital department * (ABNORMAL) POC RT, BLOOD GASES (03/22/2005 4:14 PM CDT) PH ARTERIAL 7.47(H) 7.35 - 7.45 INTERF CRISELDA SYSTEM PCO2 ARTERIAL 30(L) 35 - 48 [...] ORDERABLES nal Result Performing Organization Address [facility] Phone Number INTERFACE SYSTEM Refer [...] Fi nal Result Performing Organization Address [facility] de Phone Number INTERFACE SYSTEM Refer to [...] F inal Result Performing Organization Address [facility] Phone Number INTERFACE SYSTEM Refer [...] ORDERABLES F inal Result Performing Organization Address [facility] Phone Number INTERFACE SYSTEM Refer [...] patients with mechanical heart valves or post ID. Pediatric (12 years and under): 1.5 - [...] F inal Result Performing Organization Address [facility] Phone Number INTERFACE SYSTEM Refer to clinic/hospital department * MAGNESIUM LEVEL (03/22/2005 4:11 PM CDT) MAGNESIUM 2.1 1.5 - 2.5 mg/dL INTERFACE SYSTEM 03/22/2005 4:11 PM CDT Isael Gabriel Jr., MD CHEMISTRY ORDERABLES Fi nal Result Performing Organization Address [facility] Number INTERFACE SYSTEM Refer to clinic/hospital department [...] ORDERABLES Fi nal Result Performing Organization Address [facility] Phone Number INTERFACE SYSTEM Refer to clinic/hospital department * POC GLUCOSE (03/22/2005 7:34 AM CDT) GLUCOSE POC 88 65 - 109 mg/dL INTERFACE SYSTEM 03/22/2005 7:34 AM CDT Isael Gabriel Jr., MD POINT OF CARE TESTING F inal Result Performing Organization Address [facility] Phone Number INTERFACE SYSTEM Refer to [...] ORDERABLES Final Result Performing Organization Address [facility] Phone Number INTERFACE SYSTEM Refer [...] ORDERABLES Final Result Performing Organization Address [facility] Phone Number INTERFACE SYSTEM Refer [...] encounter Visit Diagnoses Diagnosis Coronary atherosclerosis of [place] coronary artery- Primary documented in this encounter Care Teams Pierce And Shave Press Operator Relationship Specialty Start Date End Date Von Corbin MD NO ADDRESS ON FILE PCP - General 06/24/01 10/30/16 documented as of this encounter
--- OUTSIDE RECORDS SUMMARY | 2025-07-20 23:02 | XMS_ITS | Encounter Summary ---
Author Organization [facility] Address 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
--- OUTSIDE RECORDS SUMMARY | 2025-07-20 23:02 | XMS_ITS | Encounter Summary ---
Author Organization [facility] Address [address] [place] [address] Care Team Providers Care Contact Center Assistant Name Role Phone Von Corbin MD Primary Care Provider Radha faria Encounter Details Date Type Department Care Team (Late st Contact Info) Description 03/15/2005 Outpatient Historical 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
--- OUTSIDE RECORDS SUMMARY | 2025-07-20 23:02 | XMS_ITS | Encounter Summary ---
Author Organization [facility] Address 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
--- OUTSIDE RECORDS SUMMARY | 2025-07-20 23:02 | XMS_ITS | Encounter Summary ---
Author Organization [facility] Address 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
--- OUTSIDE RECORDS SUMMARY | 2025-07-20 23:02 | XMS_ITS | Encounter Summary ---
Author Organization [facility] Address 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
--- OUTSIDE RECORDS SUMMARY | 2025-07-20 23:02 | XMS_ITS | Encounter Summary ---
Author Organization [facility] Address 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
[2025-07-20 23:09] LABS: Hematocrit 41.7 % (42.0-52.0); Hemoglobin 13.7 g/dL (14.0-18.0); Immature Granulocyte Percent A 0.4 % (0-0.5); Lymphocytes Absolute Auto 2.16 K/mm3 (0.9-3.2); Mean Corpuscular HGB Conc 32.9 g/dl (32-36); Mean Corpuscular Hemoglobin 30.0 pg (26-34); Mean Corpuscular Volume 91.4 fl (80-100); Nucleated Red Blood Cells Absolute Auto 0.000 K/mm3 (0.0-0.012); Nucleated Red Blood Cells Perc 0.0 % (0.0-0.2); Platelet Count Result 272 k/mm3 (150-375); Red Blood Count 4.56 M/mm3 (4.6-6.20); White Blood Count 12.0 K/mm3 (4.5-10.0)
[2025-07-20 23:22] LABS: Alanine Aminotransferase 14 U/L (6-50); Albumin Level 4.3 g/dL (3.5-5.1); Alkaline Phosphatase 89 U/L (38-126); Anion Gap 7 mmol/L (4-12); Aspartate Amino Transferase 31 U/L (17-59); Bilirubin,Total 1.2 mg/dL (0.2-1.3); Blood Urea Nitrogen 32 mg/dL (9-20); CRP 5.8 mg/dL (<1.0); Calcium 9.0 mg/dL (8.4-10.2); Carbon Dioxide 20 mmol/L (22-30); Chloride 107 mmol/L (98-107); Estimated CRCL calculation 28 ml/min; Estimated Glomerular Filt Rate 29; Glucose 109 mg/dL (65-110); Potassium 4.5 mmol/L (3.4-5.0); Sodium 134 mmol/L (137-145); Total Protein 8.3 g/dL (6.3-8.2)
[2025-07-20] MEDS: CLINDAMYCIN 600 MG/D5W 50 ML 600 MG/50 ML PIGGYBACK 100 MG IVPB (23:40)
[2025-07-21 00:12] VITALS: BP 130/74; PULSE 87; RESP 16; TEMP 36.6; O2SAT 98
== END 2025-07-21 00:14 | disposition home or self-care (01) ==
PROVIDERS: Emergency Provider Emergency Medicine; PCP Nurse Practitioner
DX: L03.116 Cellulitis of left lower limb (principal); E11.51 Type 2 diabetes mellitus with diabetic peripheral angiopathy without gangrene; E78.5 Hyperlipidemia, unspecified; I12.9 Hypertensive chronic kidney disease with stage 1 through stage 4 chronic kidney disease, or unspecified chronic kidney disease; E11.22 Type 2 diabetes mellitus with diabetic chronic kidney disease; N18.30 Chronic kidney disease, stage 3 unspecified; Z79.4 Long term (current) use of insulin; M19.90 Unspecified osteoarthritis, unspecified site; I25.10 Atherosclerotic heart disease of native coronary artery without angina pectoris; Z95.1 Presence of aortocoronary bypass graft
CPT/HCPCS: 36415; 80053; 85025; 86140; 96365; 99284